=== PATIENT | female | born 1965 | race Caucasian/White ===

== ENCOUNTER → 2023-06-16 | Outpatient (CLI) | payer BC ==
--- NOTE | 2023-06-16 10:01 | CT ---
EXAMINATION TYPE: CT chest wo con DATE OF EXAM: 06/16/2023 COMPARISON: None HISTORY: Lung mass CT DLP: 279.[address] of the chest was performed with lung and mediastinal window settings submitted. The la ck of contrast limits evaluation of the vascular, mediastinal and parenchymal structures including th e upper abdomen. LUNGS: Spiculated right upper lobe mass felt to reflect malignancy until proven otherwise measuring 4 .5 x 4 0.3 to 3.6 cm. Focal internal calcifications seen. Thickening and narrowing of the right upper lobe bronchus without obstruction at this time. Reticulations extent to the mediastinum. No addition al nodules identified. MEDIASTINUM/JOSIE: Thoracic aorta is of normal caliber with limited evaluation given lack of contrast . The heart is not enlarged. No evidence for mediastinal mass. Probable right hilar adenopathy brock uring up to 1.3 cm although the lack of contrast does limit evaluation. No definite mediastinal adeno louann greater than 1 cm at this time. UPPER ABDOMEN: No significant abnormality is seen. OTHER: No significant other abnormality. IMPRESSION: 1. Spiculated right upper lobe mass felt to reflect malignancy until proven otherwise. Correlation w ith PET/CT and tissue diagnosis recommended. Probable right hilar adenopathy although the lack of con trast is limiting.
== END | disposition home or self-care (01) ==
LOC: RADCTMAIN 08:20
PROVIDERS: ATTEND Internal Medicine
DX: R91.8 Other nonspecific abnormal finding of lung field (principal)
CPT/HCPCS: 71250

== ENCOUNTER → 2023-06-25 | Outpatient (CLI) | payer BC ==
--- NOTE | 2023-06-27 22:01 | PE ---
EXAMINATION TYPE: PET CT fusion skull to thigh DATE OF EXAM: 06/25/2023 COMPARISON: CT chest 06/16/2023 Prior PET/CT: None HISTORY: Solitary pulmonary nodule TECHNIQUE: Following the intravenous administration of 10.2 mCi of F-18 FDG, whole body images are p erformed from the skull base to the midthigh. Images are reviewed on the computer in the coronal, ax ial, and sagittal planes. Reconstructed rotating images are created on independent workstation and r eviewed on the computer. A localization and attenuation correction CT is performed in conjunction w ith the PET scan. DLP: 45.43 mGycm SCAN: Initial Blood glucose: 83 mg/dL Average Mediastinum SUV: 1.43 Average Liver SUV: 1.85 FINDINGS: NECK: No abnormal uptake THORAX: There is focal intense uptake within the right lung mass. This has an SUV value of 9.88 cuauhtemoc tible with neoplastic process. Example image 72. This extends towards the right hilum. Increased upta ke remains surrounding bronchi within this region, example 79. SUV 2.13. No suspicious uptake within mediastinal or hilar adenopathy is otherwise evident. ABDOMEN: No abnormal uptake PELVIS: No abnormal uptake OSSEOUS STRUCTURES: No abnormal uptake LOCALIZATION CT: Lung mass measuring 5.6 x 3.8 m right upper lobe. Some mild soft tissue extension to the right hilum appears to be present with soft tissue surrounding the bronchus. COMPARISON: Previous measurement 4.5 x 4.3 x 3.6 cm. IMPRESSION: 1. Hyperactivity within the right upper lobe mass with extension towards the right hilum compatible w [facility] neoplastic process. 2. No mediastinal or distant metastasis identified.
== END | disposition home or self-care (01) ==
LOC: RADPETMAIN 11:47
PROVIDERS: ATTEND Internal Medicine
DX: R91.8 Other nonspecific abnormal finding of lung field (principal)
CPT/HCPCS: 78815; A9552

== ENCOUNTER 2023-07-08 08:55 | Day surgery (SDC) | payer BC ==
[~2023-07-08 08:55] MED LIST: LACTATED RINGERS 1,000 ML IV SCH
--- NOTE | 2023-07-08 09:32 | CT ---
EXAMINATION TYPE: CT chest wo con CT DLP: 237 mGycm, Automated exposure control for dose reduction was used. DATE OF EXAM: 07/08/2023 9:22 AM COMPARISON: Pet/CT 06/25/2023. CLINICAL INDICATION:Female, 57 years old with history of R91.1 Solitary pulmonary nodule; PHH, solita ry pulmonary nodule, pre bronchial navigation TECHNIQUE: Multiple axial images were obtained through the chest. Sagittal and coronal reformats were created for review. Contrast used: mL of (None if empty) Oral contrast used: (None if empty) FINDINGS: LUNGS/ PLEURA: There is a right upper lung mass measuring 4.5 x 4.3 x 4.4 cm. This mass extends towar ds the right pulmonary hilum. No additional suspicious pulmonary nodules identified right upper lung calcified granuloma. Mild centrilobular emphysema changes. No focal consolidation, pneumothorax or pl eural effusion. AIRWAY: Patent and unremarkable. HEART: Size within normal limits. MEDIASTINUM: No gross evidence of adenopathy. VASCULATURE: No aortic aneurysm. MUSCULOSKELETAL: No acute osseous abnormalities SOFT TISSUES/LYMPH NODES: Unremarkable. LOWER NECK: No significant findings. UPPER ABDOMEN: The gallbladder surgically absent. IMPRESSION: Right upper lung mass concerning for malignancy which extends towards the right pulmonary hilum. No enlarged FDG avid lymph nodes within the mediastinum visualized.
[2023-07-08] MEDS ORDERED: LIDOCAINE 1% (10MG/ML) FOR IV START INTRADERMA ONE (09:40)
[2023-07-08 09:57] LABS: Glucose,Whole Blood 100 mg/dL (70-110)
[2023-07-08] MEDS ORDERED: PROPOFOL 10 MG/ML 20 ML VIAL IV ONE (09:58)
[2023-07-08] MEDS ORDERED: DEXAMETHASONE SOD PHOSPHATE 4 MG/ML 1 ML VIAL ONE (09:58)
[2023-07-08] MEDS ORDERED: GLYCOPYRROLATE 0.2 MG/ML 2 ML VIAL ONE (09:58)
[2023-07-08] MEDS ORDERED: ROCURONIUM 10 MG/ML (5 ML VIAL) IV ONE (09:58)
[2023-07-08] MEDS ORDERED: fentaNYL (PF) 50 MCG/ML 2 ML AMP ONE (09:58)
[2023-07-08] MEDS ORDERED: MIDAZOLAM 2 MG/2 ML VIAL ONE (09:58)
[2023-07-08] MEDS ORDERED: ONDANSETRON 4 MG/2 ML VIAL ONE (09:58)
[2023-07-08] MEDS ORDERED: NEOSTIGMINE 1 MG/ML 10 ML VIAL ONE (09:58)
[2023-07-08] MEDS ORDERED: LIDOCAINE 2% INJ 20 MG/ML (2 ML VIAL) ONE (09:58)
[2023-07-08] MEDS ORDERED: SUCCINYLCHOLINE CHLORIDE 200 MG/10 ML VIAL IV ONE (09:58)
--- NOTE | 2023-07-08 11:11 | P.PCN ---
Date of Procedure: 07/08/23 Description of Procedure: Date of Procedure: 07/08/23 Operative Findings: Preoperative Diagnosis: Right upper lobe mass, 4.5 x 4 0.3 to 3.6 cm Postoperative Diagnosis: Right upper lobe mass Obstruction of the posterior segment of the right upper lobe with tumor Procedure(s) Performed: Flexible bronchoscopy Robotic-assisted bronchoscopy and addition to radial ultrasound evaluation of the pulmonary mass Robotic-assisted transbronchial needle aspirate, transbronchial biopsies, transbronchial brushing of the right upper lobe mass in addition to a bronchioloalveolar lavage EBUS Anesthesia: ODETTE Surgeon: Liv Flaherty Estimated Blood Loss (ml): 0 Pathology: other Condition: stable Disposition: same day Operative Findings: A physical exam was performed. Informed consent was obtained from the patient after explaining all the risks (pneumothorax, life threatening bleeding, infection and adverse effects due to medications), benefits and alternatives to the procedure which the patient appeared to understand and so stated. The patient was connected to the monitoring devices. General anesthesia was induced and the patient was intubated by anesthesia. A final timeout was performed and the procedure confirmed by the attending staff bronchoscopist. The bronchoscope was inserted and the airway examined. The flexible bronchoscope was removed and the robotic bronchoscope was inserted. Registration was completed. I next guided the robotic bronchoscope using the navigation system into the right upper lobe posterior segment. Once in proper position, the bronchoscope was frozen. A posterior segment of the right upper lobe was completely obstructed with necrotic tumor. The tumor was fungating into the segments and it was closing orifice of the segment. The radial EBUS probe was placed through the bronchoscope and confirmed abnormal u/s images vs normal lung. A needle was placed through the working channel and under fluoroscopic guidance, we sampled the area thought to have the mass twice. U/S evaluation was then used to reconfirm location. Forceps were next introduced through working channel and extended the appropriate distance and 2 transbronchial biopsies were performed using fluoroscopic guidance. The u/s probe was then reinserted to confirm location. When confirmed this process was repeated for a total of 6 transbronchial biopsies. I subsequently under direct visualization, performed endobronchial biopsies of the residual tumor in the posterior segment of the right upper lobe. After reassessment with EBUS, a brush was placed through the extendable working channel for 1 pass with fluoroscopic guidance. U/S evaluation was then used to confirm location. 60ml of saline was then instilled into the area of the lesion. The robotic b ronchoscope was removed and the airway inspected with a flexible bronchoscope and 10 ml of effluent from the BAL was collected. Fluoroscopic check for pneumothorax was negative upon completion of the procedure. There was <5cc ml blood loss with the procedure. Following that, the endobronchial ultrasound was inserted for mediastinal lymph node evaluation. A complete examination is grossly patient's was done. The patient was found not to have any significant use on lymphadenopathy. One of the mediastinal lymph nodes were less than 5 mm in size. Flexible bronchoscope was inserted and regular suctioning was done. At the completion of the procedure, no residual secretions or bloody material within the airway. The bronchoscope was removed. The patient was extubated. FINDINGS: 1.The airways /direct visualization of the airways revealed a tumor occluding the posterior segment of the right upper lobe 2 Successful navigation, ultrasonographic identification, and biopsies of right upper lobe pulmonary mass 3 direct visualization of the airways revealed a tumor occluding the posterior segment of the right upper lobe RECOMMENDATIONS: Await pathology and cytology results The referring physician will be alerted to the results when available. The patient was advised to follow up with the referring physician with the biopsy results Patient will be called with results.
--- NOTE | 2023-07-08 11:26 | FL ---
Intraoperative/procedural fluoroscopic services were provided for bronchoscopy. Total fluoroscopy mateusz e is 1.25 minutes with a total of 3 submitted images to PACS. Total DAP 4.2370 Gycm2. Please see the operative note for further details.
[2023-07-08 11:30] VITALS: TEMP 97.2
[2023-07-08 11:55] VITALS: RESP 18
[2023-07-08 12:35] VITALS: BP 133/77; PULSE 72
== END 2023-07-08 12:36 | disposition home or self-care (01) ==
LOC: ORWHC2ENDO 08:55
PROVIDERS: ATTEND Internal Medicine Critical Care Medicine
DX: R91.1 Solitary pulmonary nodule (principal); J44.9 Chronic obstructive pulmonary disease, unspecified; K21.9 Gastro-esophageal reflux disease without esophagitis; J30.9 Allergic rhinitis, unspecified; E55.9 Vitamin D deficiency, unspecified; H02.60 Xanthelasma of unspecified eye, unspecified eyelid; Z79.899 Other long term (current) drug therapy; Z90.49 Acquired absence of other specified parts of digestive tract; Z98.890 Other specified postprocedural states
CPT/HCPCS: 87798 ×3; 87496; 87498; 87529; 88305; 88342; 87502; 87634; 88341; 87070; 87205; 87116; 87102; 87206; 71250; 31628; 31629; 31623; 31624; 31652; J2250; J0330; J1100; J2710; J2405; J3010; J2704; J2001; S2900; 31625

== ENCOUNTER → 2023-07-28 | Outpatient (CLI) | payer BC ==
--- NOTE | 2023-07-28 21:52 | MR ---
EXAMINATION TYPE: MR brain wo con DATE OF EXAM: 07/28/2023 COMPARISON: None HISTORY: Lung cancer , evaluate for metastatic disease. CONTRAST: Performed utilizing 0 mL intravenous Gadavist gadolinium contrast. Patient reports previo us allergic reaction to contrast TECHNIQUE: Multiplanar, multiecho imaging on a 3.0 Kylie magnet is performed through the brain. Stud y is performed within 24 hours of arrival to the hospital. The craniovertebral junction is normal. The pituitary is normal. Diffusion-weighted imaging is performed. No abnormal hyperintensity is present to suggest an acute i ntracranial infarct or acute ischemic change. There are scattered small subcortical white matter changes within the centrum semiovale bilaterally. This is greater in the posterior regions. No suspicious masses are identified. No vasogenic edema is evident. No suspicious calvarial changes. Ventricles and sulci are appropriate for the patient age. IMPRESSION: 1. No suspicious changes on this noncontrast MRI brain to suggest underlying metastasis. 2. Chronic appearing periventricular and deep white matter punctate white matter changes.
== END | disposition home or self-care (01) ==
LOC: RADMRIMAIN 11:35
PROVIDERS: ATTEND Thoracic Surgery (Cardiothoracic Vascular Surgery)
DX: C34.11 Malignant neoplasm of upper lobe, right bronchus or lung (principal); R90.82 White matter disease, unspecified
CPT/HCPCS: 70551

== ENCOUNTER → 2023-08-13 | Outpatient (CLI) | payer BC ==
[2023-08-13 22:25] LABS: Appearance,Urine Clear (Clear); Bilirubin,Urine Negative (Negative); Blood,Urine Negative (Negative); Color,Urine Yellow (Yellow); Ketones,Urine Negative (Negative); Nitrite,Urine Negative (Negative); PH, Urine 6.5; Specific Gravity,Urine 1.009 (1.001-1.030); Urobilinogen,Urine 0.2 E.U./DL
== END | disposition home or self-care (01) ==
LOC: LABWHC1 11:38
PROVIDERS: ATTEND Thoracic Surgery (Cardiothoracic Vascular Surgery)
DX: Z01.812 Encounter for preprocedural laboratory examination (principal); C34.11 Malignant neoplasm of upper lobe, right bronchus or lung
CPT/HCPCS: 81003; 87086

== ENCOUNTER 2023-08-19 09:39 | Inpatient (IN) | payer BC ==
[~2023-08-19 09:39] MED LIST changes: +DEXAMETHASONE SOD PHOSPHATE 4 MG/ML 1 ML VIAL IV ONE; +HYDROmorphone 0.5 MG/0.5 ML SYRINGE IVP PRN; -LACTATED RINGERS 1,000 ML IV SCH; +LIDOCAINE 1% (10MG/ML) FOR IV START INTRADERMA PRN; +MIDAZOLAM 2 MG/2 ML VIAL IV PRN; +ONDANSETRON 4 MG/2 ML VIAL IVP ONE
[2023-08-19 10:35] LABS: Glucose,Whole Blood 105 mg/dL (70-110)
[2023-08-19] MEDS: LACTATED RINGERS 1,000 ML IV SCH ×2 (10:35→10:40)
[2023-08-19] MEDS ORDERED: LIDOCAINE 1% (10MG/ML) FOR IV START INTRADERMA ONE (10:40)
[2023-08-19] MEDS ORDERED: MIDAZOLAM 2 MG/2 ML VIAL IVP ONE (10:52)
[2023-08-19] MEDS ORDERED: NEOSTIGMINE 1 MG/ML 10 ML VIAL ONE (11:31)
[2023-08-19] MEDS ORDERED: GLYCOPYRROLATE 0.2 MG/ML 2 ML VIAL ONE (11:31)
[2023-08-19] MEDS ORDERED: PHENYLEPHRINE-0.9% NACL SYG 1,000 MCG/10 ML SYRINGE ONE (11:31)
[2023-08-19] MEDS ORDERED: SUCCINYLCHOLINE CHLORIDE 200 MG/10 ML VIAL IV ONE (11:31)
[2023-08-19] MEDS ORDERED: MIDAZOLAM 2 MG/2 ML VIAL ONE (11:31)
[2023-08-19] MEDS ORDERED: HYDROmorphone (PF) 1 MG/ML ONE (11:31)
[2023-08-19] MEDS ORDERED: PROPOFOL 10 MG/ML 20 ML VIAL IV ONE (11:31)
[2023-08-19] MEDS ORDERED: LIDOCAINE 1% INJ 10MG/ML (20 ML MDV) ONE (11:31)
[2023-08-19] MEDS ORDERED: ROCURONIUM 10 MG/ML (5 ML VIAL) IV ONE (11:31)
[2023-08-19] MEDS ORDERED: ROPIVACAINE 5 MG/ML 30 ML VIAL ONE (11:31)
[2023-08-19] MEDS ORDERED: DEXAMETHASONE SOD PHOSPHATE 4 MG/ML 1 ML VIAL ONE (11:31)
[2023-08-19] MEDS ORDERED: KETAMINE HCL IN 0.9 % NACL 50 MG/5 ML SYRINGE ONE (11:31)
[2023-08-19] MEDS ORDERED: fentaNYL (PF) 50 MCG/ML 2 ML AMP ONE (11:31)
[2023-08-19] MEDS ORDERED: BUPIVACAINE (PF) 0.5% 30 ML VIAL SQ ONE (12:30)
--- NOTE | 2023-08-19 13:10 | P.ANPRN ---
Procedure Note - Anesthesia - Nerve Block Performed Right Erector Spinae Single Time Out Performed: Yes (Paravertebral T4 and T7) Date of Procedure: 08/19/23 Procedure Start Time: 10:52 Procedure Stop Time: 11:00 Location of Patient: PreOp Indication: Acute Post-Operative Pain, Requested by Surgeon Sedation Type: Sedate with meaningful contact maintained Preparation: Sterile Prep, Sterile Dressing Position: Prone Catheter: None Needle Types: Facet Needle Gauge: 21 Ultrasound used to visualize needle placement: Yes Ultrasound used to observe medication spread: Yes Injectate: 0.5% Ropivacaine (see comment for volume) (20 ml + decadron 3 mg) Blood Aspirated: No Pain Paresthesia on Injection Noted: No Resistance on Injection: Normal Image Stored and Saved: Yes Events: Uneventful and Well Tolerated Right Other (see comment) Single Time Out Performed: Yes Date of Procedure: 08/19/23 Procedure Start Time: 11:01 Procedure Stop Time: 11:06 Location of Patient: PreOp Indication: Acute Post-Operative Pain, Requested by Surgeon Sedation Type: Sedate with meaningful contact maintained Preparation: Sterile Prep, Sterile Dressing Position: Prone Catheter: None Needle Types: Facet Needle Gauge: 21 Ultrasound used to visualize needle placement: Yes Ultrasound used to observe medication spread: Yes Injectate: 0.5% Ropivacaine (see comment for volume) (5 ml per site + decadron 0.5 mg (total 10 ml + 1 mg decadron)) - Invasive Line Left Arterial Line Time Out Performed: Yes Date of Procedure: 08/19/23 Time of Procedure: 11:20 Location of Patient: PreOp Preparation: Sterile Prep, Sterile Dressing Arterial Line Location: Radial Ultrasound Used: No Needle Guage: 20 Narrative: Left radial arterial line placed by RAVINDRA
[2023-08-19] MEDS ORDERED: LACTATED RINGERS 1,000 ML IV ONE (15:49)
--- NOTE | 2023-08-19 16:28 | P.OP ---
Date of Procedure: 08/19/23 Preoperative Diagnosis: Lung Cancer Postoperative Diagnosis: Same Procedure(s) Performed: 1. Bronchoscopy 2. Right robotic assisted thorascopic surgery with right upper lobectomy 3. Mediastinal lymph node dissection 4. Intercostal nerve block - 3 levels. Anesthesia: ODETTE Surgeon: Osbaldo Espino Architectural Superintendent #1: Juan Cohen Estimated Blood Loss (ml): 100 Pathology: other (RUL, LN Stations 7-11R and 4R) Condition: stable Disposition: PACU Indications for Procedure: This patient is a 57 year-old female who developed a chronic cough and was sent to Dr. Davey for consultation who ordered a cxr, which revealed a right sided lung nodule. Further work-up revealed a 5.4cm right upper lobe poorly differentiated NSCLC with neuroendocrine features without evidence of metastatic disease. Given good lung function, lobectomy was recommended. Operative Findings: Large tumor with significant upper lobe adhesions to chest wall. No evidence of chest wall invasion or metastatic disease. Description of Procedure: The patient underwent left radial arterial line placement and errecter spinae block by the anesthesia team in pre-op. She was brought back to the operating room and placed on the table in the supine position. He was intubated with a 37F left sided NEDRA which was confirmed with bronchoscopy. A diagnostic bronchoscopy was also performed which revealed no lesions or abnormalities in the entire tracheo-bronchial tree especially the right upper lobe. There was minimal to no secretions. The patient was then positioned in the left lateral decubitus position and his right chest was prepped and draped in the usual sterile fashion. The double lumen tube position was once again checked using bronchoscopy. A time-out was performed and antibiotics were given. The right lung was isolated. We made a 1cm incision in the 8th intercostal space mid axillary line. The 8mm trocar was inserted into the chest bluntly. The robotic camera was inserted and there was no injury to the lung and there was good lung isolation. We placed then placed 12mm trocars 10cm anteriorly and 10cm posteriorly in the 8th intercostal space. A 4th 8mm port was placed posteriorly in the 7th ICS posteriorly. We placed a 15mm purchasing administrative assistant port in between ports 1 and 2 10th ICS above the diaphragm. Intercostal nerve block was performed at 3 levels. The Meltyi Xi robot was then docked. Attention was then turned towards the inferior pulmonary ligament which was taken down using the bipolar cautery. This dissection was carried upward with the bipolar cautery posteriorly along the mediastinal pleura. Level 9,8 and 7 lymph nodes were harvested here. The right mainstem bronchus was identified and followed up into the lung. The pam in between the RUL bronchus and bronchus intermedius was dissected using the bipo lar cautery and bluntly. At this point, R 10, R11 and R4 node was taken above the azygous vein. There was significant adhesions of the upper lobe to the chest wall. These were taken down using bipolar cautery. There was no evidence of tumor invasion into chest wall. I then proceeded to divide the anterior mediastinal pleura and carried this dissection upward. At this point the superior pulmonary vein was identified and encircled with a vessel loop taking care to preserve the vein to the middle lobe. A robotic white load was fired across the vein. Next, the truncus arteriosus was circumferentially dissected and encircled with a vessel loop. Once again, the robotic white load was fired across this vessel. Next the posterior ascending artery was identified and encircled with a vessel loop. A robotic white load stapler was fired across it. . Attention was then turned posterior towards the upper lobe bronchus. This was bluntly encircled with a vessel loop and a robotic green load was fired across the upper lobe bronchus. Lastly the anterior and posterior fissures were divided using multiple firings of the robotic green and black load stapler. Prior to completing the posterior fissure there was an ascessory artery noted going to the upper lobe, this was encircled with a vessel loop and stapled using a white load. The lung was placed in a retrieval bag, and the right chest was irrigated with water and a leak test on the bronchus was performed which was negative. The robot was undocked, the specimen was removed from the chest cavity and a 28F chest tube was placed via the most anterior incision and two lung ventilation was resumed. The patient was extubated and transferred to recovery with no air leak.
--- NOTE | 2023-08-19 17:18 | XR ---
EXAMINATION TYPE: XR chest 1V portable DATE OF EXAM: 08/19/2023 Comparison: 06/11/2023 Clinical History: 57-year-old female, RIGHT UPPER LOBE LOBECTOMY; POSTOP Findings: Postsurgical change right upper lung with a staple line in patchy opacity. There is a trace right api jules pneumothorax measuring 7.6 mm wide right apical chest tube present. Left lung and pleural space a re clear. Impression: Postresection changes right upper lung with right-sided chest tube in place and small right apical pn eumothorax measuring 8 mm. Patchy opacity throughout the right upper lung could represent contusion/p ostsurgical change.
[2023-08-19 17:56] LABS: Glucose,Whole Blood 145 mg/dL (70-110)
[2023-08-19] MEDS ORDERED: ONDANSETRON 4 MG/2 ML VIAL IVP PRN (17:56)
[2023-08-19] MEDS ORDERED: METOCLOPRAMIDE 5 MG/ML 2 ML VIAL IVP PRN (17:56)
[2023-08-19] MEDS ORDERED: bisacodyL 10 MG SUPP RECTAL PRN (17:56)
[2023-08-19] MEDS ORDERED: IPRATROPIUM-ALBUTEROL 3 ML NEB IH PRN (17:56)
[2023-08-19] MEDS ORDERED: DEXTROSE 5%-0.45% NACL 1,000 ML IV SCH (17:56)
[2023-08-19] MEDS: KETOROLAC 15 MG/ML 1 ML VIAL IVP SCH ×2 (18:28→23:17)
[2023-08-19] MEDS: ACETAMINOPHEN IV (For NPO) 1,000 MG in EMPTY BAG 1 BAG IVPB SCH ×2 (18:28→23:18)
[2023-08-19 19:09] LABS: African American GFR (CKD) >90 (>60 ml/min/1.73 sqM); Anion Gap 9 mmol/L; Blood Urea Nitrogen 13 mg/dL (7-17); Calcium 8.7 mg/dL (8.4-10.2); Carbon Dioxide 25 mmol/L (22-30); Chloride 102 mmol/L (98-107); Glucose 156 mg/dL (74-99); Non-African American GFR(CKD) >90 (>60 ml/min/1.73 sqM); Potassium 4.4 mmol/L (3.5-5.1); Sodium 136 mmol/L (137-145)
[2023-08-19] MEDS: traMADol 50 MG TAB PO PRN (19:40)
[2023-08-19] MEDS: FORMOTEROL FUMARATE 20 MCG/2 ML NEBU INHALATION SCH (20:18)
[2023-08-19] MEDS: IPRATROPIUM-ALBUTEROL 3 ML NEB IH SCH (20:18)
[2023-08-19] MEDS: PANTOPRAZOLE 40 MG TABLET PO SCH (20:47)
[2023-08-19 21:44] LABS: HCT 38.4 % (34.0-46.0); MCH 30.3 pg (25.0-35.0); MCHC 33.8 g/dL (31.0-37.0); MCV 89.7 fL (80.0-100.0); Mean Platelet Volume 8.3; Platelet Count 256 k/uL (150-450); RBC 4.28 m/uL (3.80-5.40); RDW 12.9 % (11.5-15.5); WBC 13.4 k/uL (3.8-10.6)
[2023-08-19] MEDS: CLINDAMYCIN 900 MG in DEXTROSE 5% IN WATER 50 ML IVPB SCH ×2 (23:17)
[2023-08-19] MEDS: HEPARIN SODIUM,PORCINE 5,000 UNIT/ML 1 ML VIAL SQ SCH (23:17)
[2023-08-20] MEDS: traMADol 50 MG TAB PO PRN (04:04)
[2023-08-20 05:23] LABS: Basophils % (A) 0 %; Eosinophils % (A) 0 %; HGB 11.7 gm/dL (11.4-16.0); Lymphocytes # (A) 2.5 k/uL (1.0-4.8); Lymphocytes % (A) 24 %; MCH 29.9 pg (25.0-35.0); MCHC 33.5 g/dL (31.0-37.0); MCV 89.2 fL (80.0-100.0); Mean Platelet Volume 7.9; Monocytes # (A) 0.6 k/uL (0-1.0); Monocytes % (A) 6 %; Neutrophils # (A) 7.1 k/uL (1.3-7.7); Neutrophils % (A) 69 %; Platelet Count 268 k/uL (150-450); RBC 3.92 m/uL (3.80-5.40); RDW 12.6 % (11.5-15.5); WBC 10.3 k/uL (3.8-10.6)
[2023-08-20 05:35] LABS: African American GFR (CKD) >90 (>60 ml/min/1.73 sqM); Anion Gap 8 mmol/L; Blood Urea Nitrogen 13 mg/dL (7-17); Carbon Dioxide 26 mmol/L (22-30); Chloride 95 mmol/L (98-107); Glucose 114 mg/dL (74-99); Non-African American GFR(CKD) >90 (>60 ml/min/1.73 sqM); Potassium 4.5 mmol/L (3.5-5.1); Sodium 129 mmol/L (137-145)
[2023-08-20] MEDS: PANTOPRAZOLE 40 MG TABLET PO SCH ×2 (06:48→16:58)
[2023-08-20] MEDS: KETOROLAC 15 MG/ML 1 ML VIAL IVP SCH ×4 (06:48→23:56)
[2023-08-20] MEDS: ACETAMINOPHEN IV (For NPO) 1,000 MG in EMPTY BAG 1 BAG IVPB SCH ×2 (06:48→12:18)
--- NOTE | 2023-08-20 08:01 | XR ---
EXAMINATION TYPE: XR chest 1V DATE OF EXAM: 08/20/2023 HISTORY: Postoperative robotic-assisted right upper lobecto COMPARISON: 08/19/2023 TECHNIQUE: Single view of the chest is submitted. FINDINGS: Postoperative changes of right upper lobectomy with chest tube in place. Persistent right apical pneu mothorax with apical pleural distance of 1.6 cm versus 8 mm previously. Increased opacity right supra hilar region as well as surgical sutures. The left lung is clear. The heart is stable. Hilar and mediastinal structures are within normal limits. Degenerative changes are seen of the dorsal spine. IMPRESSION: 1. Postoperative changes of right upper lobectomy with chest tube in place. Persistent right apical pneumothorax with apical pleural distance of 1.6 cm versus 8 mm previously.
[2023-08-20] MEDS: FORMOTEROL FUMARATE 20 MCG/2 ML NEBU INHALATION SCH ×2 (08:15→21:23)
[2023-08-20] MEDS: IPRATROPIUM-ALBUTEROL 3 ML NEB IH SCH ×4 (08:15→21:23)
[2023-08-20] MEDS: HEPARIN SODIUM,PORCINE 5,000 UNIT/ML 1 ML VIAL SQ SCH ×3 (08:56→23:56)
[2023-08-20] MEDS: traMADol 50 MG TAB PO SCH ×4 (08:56→22:52)
[2023-08-20] MEDS: CLINDAMYCIN 900 MG in DEXTROSE 5% IN WATER 50 ML IVPB SCH ×2 (08:57)
[2023-08-20] MEDS: ATORVASTATIN 40 MG TAB PO SCH (08:57)
[2023-08-20] MEDS: SODIUM CHLORIDE 0.9% 1,000 ML IV SCH (09:54)
[2023-08-20] MEDS ORDERED: BENZOCAINE/MENTHOL LOZENG 1 EACH LOZENGE MUCOUS MEM PRN (10:02)
--- NOTE | 2023-08-20 10:19 | P.PN ---
Subjective Progress Note Date: 08/20/23 Principal diagnosis: Lung cancer. Past medical history significant for COPD with preoperative FEV1 87% of predicted value and a DLCO 55% of predicted value, asthma, diverticulitis , hyperlipidemia, GERD, osteoarthritis, and chronic ongoing tobacco dependence, recently quit smoking. POD #1 bronchoscopy, right robotic assisted thoracoscopic surgery with right upper lobectomy, mediastinal lymph node dissection, intercostal nerve block 3 levels. The patient was seen and examined in the intensive care unit today 08/20/2023. She is currently sitting up to bedside chair, is awake, alert, oriented 3 and is in no acute apparent distress. Denies any complaints of shortness of breath or nausea at this time, although is complaining of some pain to her right chest and to her right chest tube insertion site currently rating her pain 5 out of 10 on the pain scale. The patient also reports that she does have some pain with taking a deep breath to her right chest. Oxygen saturations are 97% on 4 L nasal cannula and she is achieving 500 mL on her incentive spirometry with much encouragement. Bedside telemetry showing normal sinus rhythm heart rate 80 BPM. She remained hemodynamically stable and is currently on no inotropic pressor support. Right pleural chest tube remains in place to waterseal. Intermittent air leak present with coughing and taking a deep breath. Chest tube is draining thin serosanguineous drainage with 120 mL output in the last 8 hours and 300 mL output in the last 24 hours. Chest x-ray and laboratory results were reviewed. Objective - Vital Signs Vital signs: Vital Signs Temp 98.4 F 08/20/23 08:00 Pulse 96 08/20/23 10:00 Resp 22 08/20/23 10:00 BP 111/72 08/19/23 21:00 Pulse Ox 97 08/20/23 10:00 FiO2 Intake & Output 08/19/23 08/20/23 08/20/23 18:59 06:59 18:59 Intake Total 2580 730 90 Output Total 472 550 120 Balance 2108 180 -30 Weight 72.6 kg 82.3 kg Intake: IV 2430 730 90 ACETAMINOPHEN IV (For NPO 200 ) 1,000 mg In Empty Bag 1 bag @ 400 mls/hr IVPB Q6HR [facility] Rx#:[id number] Clindamycin 900 mg In 50 50 Dextrose 5% in Water 50 ml @ 50 mls/hr IVPB Q8HR [facility] Rx#:[id number] Dextrose 5%-0.45% NaCl 1, 80 480 40 000 ml @ 40 mls/hr IV . Q24H [facility] Rx#:[id number] Oral 150 Output: Chest Tube Drainage 100 160 Chest Tube Right 100 160 Urine 272 390 120 Estimated Blood Loss 100 Other: Voiding Method Indwelling Catheter Indwelling Catheter ABP, PAP, CO, CI - Last Documented Arterial Blood Pressure 127/57 - Exam CONSTITUTIONAL: Appears comfortable, cooperative, no acute distress RESPIRATORY: Lungs sounds essentially clear throughout, diminished to her bilateral bases. Respirations are symmetrical, nonlabored. Currently on 4 L nasal cannula with oxygen saturation 97%. Able to achieve 500 mL on incentive spirometry. Weak loose cough. CARDIOVASCULAR: S1, S2 present. Regular rate and rhythm, sinus rhythm on telemetry. Palpable peripheral pulses bilaterally. No edema present. No calf pain or tenderness noted. SCDs present. GASTROINTESTINAL: Abdomen soft, nontender, nondistended. Active bowel sounds present 4 quadrants. Tolerating diet. GENITOURINARY: Jimenez catheter remains in place for accurate I's and O's.. Urine output 225 mL in the last 8 hours. INTEGUMENTARY: Skin is warm and dry with evidence of good perfusion. Right chest thoracic incisions well approximated and covered with dry intact dressing. NEUROLOGIC: Cranial nerves II through XII intact. No focal deficits. MUSKULOSKELETAL: Able to move all extremities, strength equal bilaterally, gait normal PSYCHIATRIC: Alert and oriented to person place and time, appropriate affect, intact judgment and insight. INVASIVE LINES AND TUBES: Right pleural chest tube present and connected to wall suction, intermittent air leak is present with coughing and taking deep breaths. Right pleural chest tube with 120 mL serosanguineous drainage overnight, 300 mL output since surgery. - Allied health notes Allied health notes reviewed: nursing - Labs CBC & Chem 7: 08/20/23 05:07 08/20/23 05:07 Labs: Abnormal Lab Results - Last 24 Hours (Table) 08/10/23 08/19/23 08/19/23 Range/Units 09:29 17:55 18:14 WBC (3.8-10.6) k/uL Sodium 136 L (137-145) mmol/L Chloride (98-107) mmol/L Glucose 156 H (74-99) mg/dL POC Glucose (mg/dL) 145 H (70-110) mg/dL Calcium (8.4-10.2) mg/dL Crossmatch See Detail 08/19/23 08/20/23 Range/Units 21:34 05:07 WBC 13.4 H (3.8-10.6) k/uL Sodium 129 L (137-145) mmol/L Chloride 95 L (98-107) mmol/L Glucose 114 H (74-99) mg/dL POC Glucose (mg/dL) (70-110) mg/dL Calcium 8.0 L (8.4-10.2) mg/dL Crossmatch - Imaging and Cardiology Chest x-ray: report reviewed, image reviewed Assessment and Plan Assessment: Lung cancer, status post bronchoscopy, right robotic assisted thoracoscopic surgery with right upper lobectomy, mediastinal lymph node dissection and intercostal nerve block 3 levels COPD with a preoperative FEV1 87% of predicted value and a DLCO 55% of predicted value Asthma Diverticulitis Hyperlipidemia GERD Osteoarthritis Chronic tobacco dependence, recently quit smoking Plan: We will keep her right pleural chest tube in place to water seal, continue to monitor for air leak resolution. Home meds restarted. Wean O2 as tolerated. Encourage incentive spirometry is 10 times every hour while awake. Bronchodilators/steroids per pulmonology Will monitor daily chest x-rays and labs. IV fluids switched to 0.9% normal saline at 75 mL per hour per pulmonary/critical care medicine for sodium level of 129. Increase activity as tolerated. Out of bed for all meals. GI/DVT prophylaxis Pain control with current medication regimen. Ultram increased to 100 mg 4 times a day when necessary pain Pathology results remain pending, will continue to follow. More recommendations to follow based on patient's clinical course. Time with Patient: Greater than 30
[2023-08-20] MEDS: guaiFENesin 600 MG TABLET.ER PO SCH ×2 (10:23→22:53)
--- NOTE | 2023-08-20 12:35 | P.CNPUL ---
History of Present Illness Consult date: 08/20/23 Requesting physician: Osbaldo Espino Reason for consult: other (Status post lobectomy) Chief complaint: Recently diagnosed lung cancer History of present illness: This is a 57-year-old female, known history of tobacco dependence syndrome, patient saw me in the office for chronic cough. Chest x-ray in the office showed right upper lobe mass further workup including CT of the chest and PET scan showed 5.6 cm mass in the right upper lobe with hypermetabolic activity noted on the PET scan with SUV of 9.88, no evidence at the time of any further metastatic disease. 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 Patient at that time had mostly symptoms of chronic cough but no other constitutional symptoms. Patient was referred to Dr. Espino, and she underwent right robotic-assisted thoracoscopic surgery with right upper lobectomy and mediastinal lymph node dissection. Postoperatively patient was sent to the ICU she was extubated in the recovery room, and I was asked to see her on consultation this morning. Patient seems to be doing well, relatively asymptomatic, chest x-ray showed a small right-sided pneumothorax, chest tube remains in place, and she has some haziness in the right upper lung kaba. Chest tube is connected to suction and that being addressed by surgery on the case labs this morning showed a slightly low sodium of 129 her WCL is 10.3 hemoglobin 11.7, patient is on 2 L nasal cannula with O2 sat of 97% and she is hemodynamically stable Review of Systems Constitutional: Negative HEENT: Negative Pulmonary: As noted in HPI Cardiac: Negative GI: Negative Genitourinary: Negative muscular skeletal: Negative Psychiatric: Negative Endocrine: Negative Hematologic: Negative Skin: Past Medical History Past Medical History: COPD, GERD/Reflux, Hyperlipidemia, Osteoarthritis (OA) Additional Past Medical History / Comment(s): seasonal allergies. spot on lung - PET scan History of Any Multi-Drug Resistant Organisms: None Reported Past Surgical History: Section, Cholecystectomy, Hysterectomy Additional Past Surgical History / Comment(s): colonoscopy Past Anesthesia/Blood Transfusion Reactions: No Reported Reaction Additional Past Anesthesia/Blood Transfusion Reaction / Comment(s): no blood tranfusions Additional Past Alcohol Use History / Comment(s): 5-6 cigarettes a day. - Past Family History Father Family Medical History: Coronary Artery Disease (CAD), Hypertension Additional Family Medical History / Comment(s): pacemaker Mother Family Medical History: Diabetes Mellitus, Hypertension Medications and Allergies Home Medications Medication Instructions Recorded Confirmed Type Cetirizine HCl [Zyrtec] 10 mg PO Q2D 07/06/23 08/13/23 History Fluticasone/Umeclidin/Vilanter 1 puff INHALATION DAILY 07/06/23 08/13/23 History [Trelegy Ellipta 200-62.5-25] Montelukast [Singulair] 10 mg PO HS 07/06/23 08/13/23 History Omeprazole [PriLOSEC] 10 mg PO BID 07/06/23 08/13/23 History Pravastatin Sodium [Pravachol] 10 mg PO HS 07/06/23 08/13/23 History Albuterol Inhaler [Ventolin Hfa 2 puff INHALATION Q6H PRN 08/13/23 08/13/23 History Inhaler] Allergies Allergy/AdvReac Type Severity Reaction Status Date / Time amoxicillin Allergy Rash/Hives Verified 08/19/23 10:15 calcium [From Coral Calcium] Allergy Swelling Verified 08/19/23 10:13 calcium carbonate Allergy Swelling Verified 08/19/23 10:13 [From Coral Calcium] cephalexin [From Keflex] Allergy Rash/Hives Verified 08/19/23 10:13 cholecalciferol (vitamin D3) Allergy Swelling Verified 08/19/23 10:13 [From Coral Calcium] Iodinated Contrast Media Allergy Unknown Verified 08/19/23 10:13 magnesium Allergy Swelling Verified 08/19/23 10:13 [From Coral Calcium] magnesium amino acid chelate Allergy Swelling Verified 08/19/23 10:13 [From Coral Calcium] magnesium oxide Allergy Swelling Verified 08/19/23 10:13 [From Coral Calcium] Penicillins Allergy Rash/Hives Verified 08/19/23 10:13 shellfish derived Allergy Swelling Verified 08/19/23 10:13 sulfamethoxazole Allergy muscle Verified 08/13/23 09:16 [From Bactrim] weakness trimethoprim [From Bactrim] Allergy muscle Verified 08/13/23 09:16 weakness varenicline [From Chantix] Allergy rash and Verified 08/13/23 09:16 itching Physical Exam Vitals: Vital Signs Temp Pulse Pulse Resp BP BP BP 08/20/23 12:00 98.2 F 99 27 H 115/70 08/20/23 11:30 85 33 H 08/20/23 11:09 83 12 115/70 08/20/23 10:30 85 18 08/20/23 10:00 96 22 08/20/23 09:30 92 20 08/20/23 09:00 84 19 08/20/23 08:42 73 08/20/23 08:30 74 20 08/20/23 08:26 08/20/23 08:17 83 08/20/23 08:00 98.4 F 68 16 08/20/23 07:30 81 14 08/20/23 07:00 69 19 08/20/23 06:30 73 24 08/20/23 06:00 78 24 08/20/23 05:30 82 21 08/20/23 05:00 76 12 08/20/23 04:30 68 13 08/20/23 04:00 98.3 F 73 15 08/20/23 03:30 71 15 08/20/23 03:00 76 16 08/20/23 02:30 75 17 08/20/23 02:00 76 14 08/20/23 01:30 74 16 08/20/23 01:00 74 16 08/20/23 00:30 71 15 08/20/23 00:10 75 16 08/20/23 00:00 97.9 F 81 10 L 08/19/23 23:30 82 22 08/19/23 23:00 87 15 08/19/23 22:30 77 16 08/19/23 22:00 76 15 08/19/23 21:30 78 15 08/19/23 21:00 80 17 111/72 08/19/23 20:30 70 17 74/26 08/19/23 20:29 76 08/19/23 20:19 74 08/19/23 20:00 97.6 F 71 20 105/60 08/19/23 19:30 71 15 08/19/23 19:00 81 22 114/67 08/19/23 18:00 97.7 F 74 13 122/60 08/19/23 17:15 73 17 120/59 112/56 08/19/23 17:02 75 14 115/58 122/76 08/19/23 16:47 82 16 143/71 128/76 10/12/23 16:32 97 F L 79 16 123/55 128/76 Pulse Ox 08/20/23 12:00 98 08/20/23 11:30 98 08/20/23 11:09 96 08/20/23 10:30 98 08/20/23 10:00 97 08/20/23 09:30 97 08/20/23 09:00 96 08/20/23 08:42 08/20/23 08:30 98 08/20/23 08:26 94 L 08/20/23 08:17 08/20/23 08:00 94 L 08/20/23 07:30 93 L 08/20/23 07:00 97 08/20/23 06:30 96 08/20/23 06:00 94 L 08/20/23 05:30 97 08/20/23 05:00 98 08/20/23 04:30 98 08/20/23 04:00 97 08/20/23 03:30 98 08/20/23 03:00 97 08/20/23 02:30 97 08/20/23 02:00 97 08/20/23 01:30 98 08/20/23 01:00 97 08/20/23 00:30 97 08/20/23 00:10 98 08/20/23 00:00 97 08/19/23 23:30 96 08/19/23 23:00 98 08/19/23 22:30 97 08/19/23 22:00 98 08/19/23 21:30 97 08/19/23 21:00 95 08/19/23 20:30 99 08/19/23 20:29 08/19/23 20:19 08/19/23 20:00 98 08/19/23 19:30 97 08/19/23 19:00 97 08/19/23 18:00 97 08/19/23 17:15 98 08/19/23 17:02 99 08/19/23 16:47 98 08/19/23 16:32 92 L Intake and Output 08/19/23 08/20/23 08/20/23 22:59 06:59 14:59 Intake Total 650 610 315 Output Total 602 420 245 Balance 48 190 70 Intake: IV 500 610 315 ACETAMINOPHEN IV (For NPO 200 ) 1,000 mg In Empty Bag 1 bag @ 400 mls/hr IVPB Q6HR [facility] Rx#:[id number] Clindamycin 900 mg In 50 50 Dextrose 5% in Water 50 ml @ 50 mls/hr IVPB Q8HR [facility] Rx#:[id number] Dextrose 5%-0.45% NaCl 1, 200 360 40 000 ml @ 40 mls/hr IV . Q24H [facility] Rx#:[id number] Sodium Chloride 0.9% 1, 225 000 ml @ 75 mls/hr IV . [id number] [facility] Rx#:[id number] Oral 150 Output: Chest Tube Drainage 140 120 Chest Tube Right 140 120 Urine 362 300 245 Estimated Blood Loss 100 Other: Voiding Method Indwelling Catheter Indwelling Catheter Indwelling Catheter # Voids 0 Weight 82.3 kg ABP, PAP, CO, CI - Last 8 Hours Arterial Blood Pressure 127/57 Arterial Blood Pressure 128/60 Arterial Blood Pressure 118/51 Arterial Blood Pressure 121/54 Arterial Blood Pressure 111/52 Arterial Blood Pressure 116/57 Arterial Blood Pressure 123/58 Arterial Blood Pressure 121/56 Arterial Blood Pressure 123/49 Arterial Blood Pressure 114/50 Arterial Blood Pressure 130/57 Arterial Blood Pressure 111/50 Physical Exam: Revealed a 57-year-old female in no distress Head: Atraumatic, normocephalic. HEENT:[Neck is supple.] [No neck masses.] [No thyromegaly.] [No JVD.] Chest: [Clear throughout, no crackles, no rhonchi, no wheezes.] Right-sided chest tube is noted connected to wall suction, intermittent air leak is noted. Cardiac Exam: [Normal S1 and S2, no S3 gallop, no murmur.] Abdomen: [Soft, nontender, no megaly, no rebound, no guarding, normal bowel sounds.] Extremities: [No clubbing, no edema, no cyanosis.] Neurological Exam: [No focal neurologic deficit.] Alert oriented 3 Psychiatric: Normal mood affect and normal mental status examination. Skin: No rashes. Results - Laboratory Findings CBC and BMP: 08/20/23 05:07 08/20/23 05:07 Abnormal lab findings: Abnormal Labs 08/10/23 08/19/23 08/19/23 09:29 17:55 18:14 WBC Sodium 136 L Chloride Glucose 156 H POC Glucose (mg/dL) 145 H Calcium Crossmatch See Detail 08/19/23 08/20/23 21:34 05:07 WBC 13.4 H Sodium 129 L Chloride 95 L Glucose 114 H POC Glucose (mg/dL) Calcium 8.0 L Crossmatch - Diagnostic Findings Chest x-ray: image reviewed (As noted in HPI) Assessment and Plan Assessment: Impression: Right upper lobe non-small cell lung cancer with neuroendocrine features status post right robotic-assisted thoracoscopic surgery and the right upper lobectomy. With mediastinal node dissection postoperative day #1 Mild COPD FEV1 of 87% Dyslipidemia Chronic cough Degenerative joint disease Tobacco dependence syndrome Recommendation: Agree with present treatment plan Consider transferring the patient out of the ICU to a regular medical floor Continue bronchodilators Encourage incentive spirometry Ambulation GI and DVT prophylaxis Pain control We'll continue to follow Time with Patient: Greater than 30
[2023-08-21 04:54] LABS: HCT 32.4 % (34.0-46.0); HGB 10.8 gm/dL (11.4-16.0); MCH 29.7 pg (25.0-35.0); MCHC 33.5 g/dL (31.0-37.0); MCV 88.8 fL (80.0-100.0); Mean Platelet Volume 7.3; Platelet Count 239 k/uL (150-450); RBC 3.64 m/uL (3.80-5.40); RDW 12.8 % (11.5-15.5); WBC 11.1 k/uL (3.8-10.6)
[2023-08-21 05:07] LABS: African American GFR (CKD) >90 (>60 ml/min/1.73 sqM); Anion Gap 9 mmol/L; Blood Urea Nitrogen 7 mg/dL (7-17); Carbon Dioxide 24 mmol/L (22-30); Chloride 94 mmol/L (98-107); Glucose 104 mg/dL (74-99); Non-African American GFR(CKD) >90 (>60 ml/min/1.73 sqM); Potassium 4.4 mmol/L (3.5-5.1); Sodium 127 mmol/L (137-145)
[2023-08-21] MEDS: PANTOPRAZOLE 40 MG TABLET PO SCH ×2 (06:29→18:40)
[2023-08-21] MEDS: KETOROLAC 15 MG/ML 1 ML VIAL IVP SCH ×4 (06:29→23:38)
[2023-08-21] MEDS: SODIUM CHLORIDE 0.9% 1,000 ML IV SCH (06:31)
--- NOTE | 2023-08-21 08:04 | XR ---
EXAMINATION TYPE: XR chest 1V portable DATE OF EXAM: 08/21/2023 HISTORY: Shortness of breath. COMPARISON: 08/20/2023 TECHNIQUE: Single view of the chest is submitted. FINDINGS: Postoperative changes of right upper lobectomy are redemonstrated. Increasing right apical pneumothor ax with apical pleural distance of 2.9 cm versus 1.6 cm previously. Increased opacity right upper shanda g. Chest tube is in place. The left lung is clear. The heart is stable. Hilar and mediastinal structures are within normal limits. Degenerative changes are seen of the dorsal spine. IMPRESSION: 1. Postoperative changes of right upper lobectomy are redemonstrated. Increasing right apical pneumo thorax with apical pleural distance of 2.9 cm versus 1.6 cm previously. Increased opacity right upper lung. Chest tube is in place.
[2023-08-21] MEDS: FORMOTEROL FUMARATE 20 MCG/2 ML NEBU INHALATION SCH ×2 (08:49→20:50)
[2023-08-21] MEDS: IPRATROPIUM-ALBUTEROL 3 ML NEB IH SCH ×4 (08:49→20:50)
[2023-08-21] MEDS: ACETAMINOPHEN TAB 500 MG TAB PO PRN (08:56)
[2023-08-21] MEDS: traMADol 50 MG TAB PO SCH ×4 (08:56→21:27)
[2023-08-21] MEDS: ATORVASTATIN 40 MG TAB PO SCH (08:56)
[2023-08-21] MEDS: guaiFENesin 600 MG TABLET.ER PO SCH ×2 (08:56→21:27)
[2023-08-21] MEDS: HEPARIN SODIUM,PORCINE 5,000 UNIT/ML 1 ML VIAL SQ SCH ×3 (08:57→23:38)
--- NOTE | 2023-08-21 09:21 | P.PN ---
Subjective Progress Note Date: 08/21/23 Principal diagnosis: Right upper lobe non-small cell lung cancer with neuroendocrine features. Past medical history significant for COPD with preoperative FEV1 87% of predicted va lue and a DLCO 55% of predicted value, asthma, diverticulitis, hyperlipidemia, GERD, osteoarthritis, and chronic ongoing tobacco dependence, recently quit smoking. POD #2 bronchoscopy, right robotic assisted thoracoscopic surgery with right upper lobectomy, mediastinal lymph node dissection, intercostal nerve block 3 levels. Objective - Vital Signs Vital signs: Vital Signs Temp 98.6 F 08/21/23 08:00 Pulse 92 08/21/23 09:10 Resp 25 H 08/21/23 08:00 BP 107/53 08/21/23 08:00 Pulse Ox 95 08/21/23 08:00 FiO2 Intake & Output 08/20/23 08/21/23 08/21/23 18:59 06:59 18:59 Intake Total 765 825 Output Total 545 730 Balance 220 95 Weight 79.5 kg Intake: IV 765 825 Clindamycin 900 mg In 50 Dextrose 5% in Water 50 ml @ 50 mls/hr IVPB Q8HR [facility] Rx#:[id number] Dextrose 5%-0.45% NaCl 1, 40 000 ml @ 40 mls/hr IV . Q24H [facility] Rx#:[id number] Sodium Chloride 0.9% 1, 675 825 000 ml @ 75 mls/hr IV . [id number] [facility] Rx#:[id number] Output: Chest Tube Drainage 230 Chest Tube Right 230 Urine 545 500 Other: Voiding Method Indwelling Catheter Toilet # Voids 0 ABP, PAP, CO, CI - Last Documented Arterial Blood Pressure 127/57 - Labs CBC & Chem 7: 08/21/23 04:33 08/21/23 04:33 Labs: Abnormal Lab Results - Last 24 Hours (Table) 08/10/23 08/21/23 08/21/23 Range/Units 09:29 04:33 04:33 WBC 11.1 H (3.8-10.6) k/uL RBC 3.64 L (3.80-5.40) m/uL Hgb 10.8 L (11.4-16.0) gm/dL Hct 32.4 L (34.0-46.0) % Sodium 127 L (137-145) mmol/L Chloride 94 L (98-107) mmol/L Glucose 104 H (74-99) mg/dL Calcium 8.0 L (8.4-10.2) mg/dL Crossmatch See Detail Assessment and Plan Assessment: Right upper lobe non-small cell lung cancer with neuroendocrine features, status post bronchoscopy, right robotic assisted thoracoscopic surgery with right upper lobectomy, mediastinal lymph node dissection and intercostal nerve block 3 levels COPD with a preoperative FEV1 87% of predicted value and a DLCO 55% of predicted value Asthma Diverticulitis Hyperlipidemia GERD Osteoarthritis Chronic tobacco dependence, recently quit smoking in June 2023 Plan: We will keep her right pleural chest tube in place to water seal, continue to monitor for air leak resolution. Mucinex 1200 mg by mouth twice a day was started yesterday and we will start Mucomyst 200 mg inhalation 3 times a day today. Wean O2 as tolerated. Encourage incentive spirometry is 10 times every hour while awake. Bronchodilators/steroids per pulmonology Will monitor daily chest x-rays and labs. Discontinue 0.9% normal saline and place on 1200 mL fluid restriction today for a sodium level of 127, the patient was also started on Declomycin 150 mg by mouth twice a day by pulmonary critical care medicine. Increase activity as tolerated. Out of bed for all meals. GI/DVT prophylaxis. Pain control with current medication regimen. Acetaminophen 1000 mg by mouth every 6 hours when necessary pain added for additional pain control. Pathology results remain pending, will continue to follow. More recommendations to follow based on patient's clinical course. Time with Patient: Greater than 30
[2023-08-21] MEDS: ACETYLCYSTEINE 800 MG/4 ML VIAL INHALATION SCH ×2 (11:40→20:50)
--- NOTE | 2023-08-21 12:05 | P.PN ---
Subjective Progress Note Date: 08/21/23 Principal diagnosis: Right upper lobe non-small cell lung cancer with neuroendocrine features status post right robotic-assisted thoracoscopic surgery and the right upper lobectomy. With mediastinal node dissection postoperative day #2 This is a 57-year-old female, known history of tobacco dependence syndrome, patient saw me in the office for chronic cough. Chest x-ray in the office showed right upper lobe mass further workup including CT of the chest and PET scan showed 5.6 cm mass in the right upper lobe with hypermetabolic activity noted on the PET scan with SUV of 9.88, no evidence at the time of any further metastatic disease. Patient underwent bronchoscopy and transbronchial biopsy came back positive for poorly differentiated non-small cell lung cancer with n euroendocrine features. Patient at that time had mostly symptoms of chronic cough but no other constitutional symptoms. Patient was referred to Dr. Espino, and she underwent right robotic-assisted thoracoscopic surgery with right upper lobectomy and mediastinal lymph node dissection. Postoperatively patient was sent to the ICU she was extubated in the recovery room, and I was asked to see her on consultation this morning. Patient seems to be doing well, relatively asymptomatic, chest x-ray showed a small right-sided pneumothorax, chest tube remains in place, and she has some haziness in the right upper lung kaba. Chest tube is connected to suction and that being addressed by surgery on the case labs this morning showed a slightly low sodium of 129 her WCL is 10.3 hemoglobin 11.7, patient is on 2 L nasal cannula with O2 sat of 97% and she is hemodynamically stable Patient was reevaluated today on 08/21/2023, patient remains in the ICU as an overflow, she seems to be comfortable, not in any distress, she is on 4 L nasal cannula. Chest x-ray continues to show pneumothorax of the right apex, and now she is developing more atelectatic changes in the right upper lung field. Sue ent apparently has some mucus plugging and she is having difficulty clearing her mucous plugs and secretions. She will be placed on Mucomyst, he is receiving updrafts, and she was instructed on aggressive use of her incentive spirometer. She is also on updrafts. Patient developed also hyponatremia, did not improve much with fluids yesterday, hence I believe it is most likely SIADH picture and now I'm recommending fluid restriction and demeclocycline Objective - Vital Signs Vital signs: Vital Signs Temp 98.6 F 08/21/23 08:00 Pulse 94 08/21/23 11:43 Resp 25 H 08/21/23 08:00 BP 107/53 08/21/23 08:00 Pulse Ox 95 08/21/23 08:00 FiO2 Intake & Output 08/20/23 08/21/23 08/21/23 18:59 06:59 18:59 Intake Total 765 825 150 Output Total 545 730 750 Balance 220 95 -600 Weight 79.5 kg Intake: IV 765 825 150 Clindamycin 900 mg In 50 Dextrose 5% in Water 50 ml @ 50 mls/hr IVPB Q8HR [facility] Rx#:[id number] Dextrose 5%-0.45% NaCl 1, 40 000 ml @ 40 mls/hr IV . Q24H [facility] Rx#:[id number] Sodium Chloride 0.9% 1, 675 825 150 000 ml @ 75 mls/hr IV . [id number] [facility] Rx#:[id number] Output: Chest Tube Drainage 230 Chest Tube Right 230 Urine 545 500 750 Other: Voiding Method Indwelling Catheter Toilet Toilet # Voids 0 ABP, PAP, CO, CI - Last Documented Arterial Blood Pressure 127/57 - Exam Physical Exam: Revealed a 57-year-old female in no distress, on 4 L nasal cannula Head: Atraumatic, normocephalic. HEENT:[Neck is supple.] [No neck masses.] [No thyromegaly.] [No JVD.] Chest: [Scattered rhonchi noted bilaterally. Chest tube remains in place and there is air leak Cardiac Exam: [Normal S1 and S2, no S3 gallop, no murmur.] Abdomen: [Soft, nontender, no megaly, no rebound, no guarding, normal bowel sounds.] Extremities: [No clubbing, no edema, no cyanosis.] Neurological Exam: [No focal neurologic deficit.] Alert oriented 3 Psychiatric: Normal mood affect and normal mental status examination. Skin: No rashes. - Labs CBC & Chem 7: 08/21/23 04:33 08/21/23 04:33 Labs: Abnormal Lab Results - Last 24 Hours (Table) 08/10/23 08/21/23 08/21/23 Range/Units 09:29 04:33 04:33 WBC 11.1 H (3.8-10.6) k/uL RBC 3.64 L (3.80-5.40) m/uL Hgb 10.8 L (11.4-16.0) gm/dL Hct 32.4 L (34.0-46.0) % Sodium 127 L (137-145) mmol/L Chloride 94 L (98-107) mmol/L Glucose 104 H (74-99) mg/dL Calcium 8.0 L (8.4-10.2) mg/dL Crossmatch See Detail Assessment and Plan Assessment: Impression: Right upper lobe non-small cell lung cancer with neuroendocrine features status post right robotic-assisted thoracoscopic surgery and the right upper lobectomy. With mediastinal node dissection postoperative day #2 Right apical pneumothorax, expected. Hyponatremia secondary to SIADH Mild COPD FEV1 of 87% Dyslipidemia Chronic cough Degenerative joint disease Tobacco dependence syndrome Suspect endobronchial mucous plugging and atelectasis Recommendation: Continue bronchodilators add mucomist Encourage incentive spirometry Ambulation GI and DVT prophylaxis Add demeclocycline and continue fluid restrictions Repeat serum sodium in a.m. We'll continue to follow Time with Patient: Less than 30
[2023-08-21] MEDS: DEMECLOCYCLINE 150 MG TAB PO SCH ×2 (13:57→21:27)
[2023-08-22 04:33] LABS: HGB 10.2 gm/dL (11.4-16.0); MCH 29.7 pg (25.0-35.0); MCHC 32.8 g/dL (31.0-37.0); MCV 90.5 fL (80.0-100.0); Mean Platelet Volume 7.4; Platelet Count 246 k/uL (150-450); RBC 3.42 m/uL (3.80-5.40); RDW 12.7 % (11.5-15.5); WBC 9.7 k/uL (3.8-10.6)
[2023-08-22 04:45] LABS: African American GFR (CKD) >90 (>60 ml/min/1.73 sqM); Anion Gap 6 mmol/L; Blood Urea Nitrogen 8 mg/dL (7-17); Calcium 7.9 mg/dL (8.4-10.2); Carbon Dioxide 28 mmol/L (22-30); Chloride 95 mmol/L (98-107); Glucose 100 mg/dL (74-99); Non-African American GFR(CKD) >90 (>60 ml/min/1.73 sqM); Potassium 4.1 mmol/L (3.5-5.1); Sodium 129 mmol/L (137-145)
--- NOTE | 2023-08-22 06:27 | XR ---
EXAMINATION TYPE: XR chest 1V portable DATE OF EXAM: 08/22/2023 CLINICAL HISTORY: Difficulty breathing progress study. Status post right upper lobectomy TECHNIQUE: Single AP portable semiupright view of the chest is obtained. COMPARISON: Chest x-ray from one day earlier FINDINGS: Stable right-sided chest tube with chronic parenchymal changes bilaterally and right upper lung increased opacity. Right apical surgical changes redemonstrated with tiny resection cavity. Lef t lung remains clear. Cardiac silhouette size is stable and within normal limits. Cholecystectomy cli ps redemonstrated. Osseous structures are intact. IMPRESSION: Postsurgical changes to right upper lung is redemonstrated. Improving right apical pneumo thorax or resection cavity noted with chest tube in place. Chronic parenchymal changes with persisten t right upper and midlung atelectasis and/or infiltrate again seen. This finding is stable.
[2023-08-22] MEDS: KETOROLAC 15 MG/ML 1 ML VIAL IVP SCH ×3 (06:41→17:32)
[2023-08-22] MEDS: PANTOPRAZOLE 40 MG TABLET PO SCH ×2 (06:41→17:31)
[2023-08-22] MEDS: guaiFENesin 600 MG TABLET.ER PO SCH ×2 (08:22→20:57)
[2023-08-22] MEDS: ACETAMINOPHEN TAB 500 MG TAB PO PRN (08:22)
[2023-08-22] MEDS: traMADol 50 MG TAB PO SCH ×4 (08:22→21:00)
[2023-08-22] MEDS: HEPARIN SODIUM,PORCINE 5,000 UNIT/ML 1 ML VIAL SQ SCH ×2 (08:23→17:32)
[2023-08-22] MEDS: ATORVASTATIN 40 MG TAB PO SCH (08:23)
[2023-08-22] MEDS: DEMECLOCYCLINE 150 MG TAB PO SCH ×2 (08:23→20:57)
--- NOTE | 2023-08-22 08:41 | P.PN ---
Subjective Progress Note Date: 08/22/23 Principal diagnosis: Right upper lobe non-small cell lung cancer with neuroendocrine features. Past medical history significant for COPD with preoperative FEV1 87% of predicted va lue and a DLCO 55% of predicted value, asthma, diverticulitis, hyperlipidemia, GERD, osteoarthritis, and chronic ongoing tobacco dependence, recently quit smoking. POD #3 bronchoscopy, right robotic assisted thoracoscopic surgery with right upper lobectomy, mediastinal lymph node dissection, intercostal nerve block 3 levels. Patient was seen and examined in follow-up today 08/22/2023 at her bedside in the intensive care unit. She is sitting up to bedside chair, is awake, alert, oriented 3 and is in no acute apparent distress. She denies any complaints of pain with sitting in the chair, although is complaining of pain rating her pain 5 out of 10 on pain scale when coughing to her right chest. Denies any complaints of shortness of breath with sitting, although again is complaining of some shortness of breath with activity. She states overall she feels improved today and feels like she is coughing up some sputum which has been blood tinged. Oxygen saturation are 95% on 4 L nasal cannula and she is achieving 500-750 mL on her incentive spirometry with encouragement. Right pleural chest tube remains in place to water seal. Intermittent air leak is present. Draining thin serosanguineous drainage with 200 mL output in the last 8 hours and 370 mL output since surgery. She has been afebrile the last 24 hours. Bedside telemetry is showing normal sinus rhythm heart rate 92 BPM. He remains hemodynamically stable and is currently on no inotropic or pressor support. Chest x-ray results were reviewed, continues to re-demonstrate a persistent right upper and mid lung atelectasis and/or infiltrate. Laboratory results reviewed. Objective - Vital Signs Vital signs: Vital Signs Temp 98.9 F 08/22/23 04:00 Pulse 93 08/22/23 04:00 Resp 14 08/22/23 04:00 BP 105/63 08/22/23 04:00 Pulse Ox 95 08/22/23 04:00 FiO2 Intake & Output 08/21/23 08/22/23 08/22/23 18:59 06:59 18:59 Intake Total 150 480 Output Total 1950 600 Balance -1800 -120 Weight 81 kg Intake: IV 150 Sodium Chloride 0.9% 1, 150 000 ml @ 75 mls/hr IV . [id number] [facility] Rx#:[id number] Oral 480 Output: Chest Tube Drainage 200 Chest Tube Right 200 Urine 1950 400 Other: Voiding Method Toilet Toilet ABP, PAP, CO, CI - Last Documented Arterial Blood Pressure 127/57 - Exam CONSTITUTIONAL: Appears comfortable, cooperative, no acute distress RESPIRATORY: Lungs sounds scattered rhonchi throughout, diminished to her bilateral bases, right greater than left. Respirations are symmetrical, nonlabored. Currently on 4 L nasal cannula with oxygen saturation 95%. Able to achieve 500-750 mL on incentive spirometry. Strong loose cough, with blood- tinged sputum. CARDIOVASCULAR: S1, S2 present. Regular rate and rhythm, sinus rhythm on telemetry. Palpable peripheral pulses bilaterally. No edema present. No calf pain or tenderness noted. SCDs present. GASTROINTESTINAL: Abdomen soft, nontender, nondistended. Active bowel sounds present 4 quadrants. Tolerating diet. GENITOURINARY: Continues to void Urine output 400 mL in the last 8 hours. INTEGUMENTARY: Skin is warm and dry with evidence of good perfusion. Right chest thoracic incisions well approximated and covered with dry intact dressing. NEUROLOGIC: Cranial nerves II through XII intact. No focal deficits. MUSKULOSKELETAL: Able to move all extremities, strength equal bilaterally, gait normal PSYCHIATRIC: Alert and oriented to person place and time, appropriate affect, intact judgment and insight. INVASIVE LINES AND TUBES: Right pleural chest tube present and connected to wall suction, intermittent air leak is present with coughing and taking deep breaths. Right pleural chest tube with 200 mL serosanguineous drainage overnight, 370 mL output since surgery. - Allied health notes Allied health notes reviewed: nursing - Labs CBC & Chem 7: 08/22/23 03:25 08/22/23 03:25 Labs: Abnormal Lab Results - Last 24 Hours (Table) 08/22/23 08/22/23 Range/Units 03:25 03:25 RBC 3.42 L (3.80-5.40) m/uL Hgb 10.2 L (11.4-16.0) gm/dL Hct 31.0 L (34.0-46.0) % Sodium 129 L (137-145) mmol/L Chloride 95 L (98-107) mmol/L Glucose 100 H (74-99) mg/dL Calcium 7.9 L (8.4-10.2) mg/dL - Imaging and Cardiology Chest x-ray: report reviewed, image reviewed Assessment and Plan Assessment: Right upper lobe non-small cell lung cancer with neuroendocrine features, status post bronchoscopy, right robotic assisted thoracoscopic surgery with right upper lobectomy, mediastinal lymph node dissection and intercostal nerve block 3 levels COPD with a preoperative FEV1 87% of predicted value and a DLCO 55% of predicted value Asthma Diverticulitis Hyperlipidemia GERD Osteoarthritis Chronic tobacco dependence, recently quit smoking in June 2023 Chest x-ray, showing atelectasis right mid lung, suspect and no bronchial mucous plugging Plan: We will keep her right pleural chest tube in place to water seal, continue to monitor for air leak resolution. Continue Mucinex 1200 mg by mouth twice a day as well as Mucomyst 200 mg inhalation 3 times a day. Chest physiotherapy every 4 hours. Make nothing by mouth for possible bronchoscopy today by Dr. Hensley. Wean O2 as tolerated. Encourage incentive spirometry is 10 times every hour while awake. Bronchodilators/steroids per pulmonology Will monitor daily chest x-rays and labs. Once bronchoscopy is completed May start back on heart healthy diet with a 1200 mL fluid restriction today for a sodium level of 129, continue Declomycin 150 mg by mouth twice a day by pulmonary critical care medicine. Increase activity as tolerated. Out of bed for all meals. GI/DVT prophylaxis. Pain control with current medication regimen. Pathology results remain pending, will continue to follow. More recommendations to follow based on patient's clinical course. Time with Patient: Greater than 30
[2023-08-22] MEDS: ACETYLCYSTEINE 800 MG/4 ML VIAL INHALATION SCH ×3 (09:01→20:36)
[2023-08-22] MEDS: FORMOTEROL FUMARATE 20 MCG/2 ML NEBU INHALATION SCH ×2 (09:01→20:36)
[2023-08-22] MEDS: IPRATROPIUM-ALBUTEROL 3 ML NEB IH SCH ×4 (09:02→20:36)
--- NOTE | 2023-08-22 12:36 | P.PN ---
Subjective Progress Note Date: 08/22/23 Principal diagnosis: Right upper lobe non-small cell lung cancer with neuroendocrine features status post right robotic-assisted thoracoscopic surgery and the right upper lobectomy. With mediastinal node dissection postoperative day #3 This is a 57-year-old female, known history of tobacco dependence syndrome, patient saw me in the office for chronic cough. Chest x-ray in the office showed right upper lobe mass further workup including CT of the chest and PET scan showed 5.6 cm mass in the right upper lobe with hypermetabolic activity noted on the PET scan with SUV of 9.88, no evidence at the time of any further metastatic disease. Patient underwent bronchoscopy and transbronchial biopsy came back positive for poorly differentiated non-small cell lung cancer with n euroendocrine features. Patient at that time had mostly symptoms of chronic cough but no other constitutional symptoms. Patient was referred to Dr. Espino, and she underwent right robotic-assisted thoracoscopic surgery with right upper lobectomy and mediastinal lymph node dissection. Postoperatively patient was sent to the ICU she was extubated in the recovery room, and I was asked to see her on consultation this morning. Patient seems to be doing well, relatively asymptomatic, chest x-ray showed a small right-sided pneumothorax, chest tube remains in place, and she has some haziness in the right upper lung kaba. Chest tube is connected to suction and that being addressed by surgery on the case labs this morning showed a slightly low sodium of 129 her WCL is 10.3 hemoglobin 11.7, patient is on 2 L nasal cannula with O2 sat of 97% and she is hemodynamically stable Patient was reevaluated today on 08/21/2023, patient remains in the ICU as an overflow, she seems to be comfortable, not in any distress, she is on 4 L nasal cannula. Chest x-ray continues to show pneumothorax of the right apex, and now she is developing more atelectatic changes in the right upper lung field. Sue ent apparently has some mucus plugging and she is having difficulty clearing her mucous plugs and secretions. She will be placed on Mucomyst, he is receiving updrafts, and she was instructed on aggressive use of her incentive spirometer. She is also on updrafts. Patient developed also hyponatremia, did not improve much with fluids yesterday, hence I believe it is most likely SIADH picture and now I'm recommending fluid restriction and demeclocycline Reevaluated today 08/22/2023, patient remains in the ICU, she is basically an overflow, doing quite well, she is not in any distress. She is on 3 L nasal cannula, her chest x-ray continues to show some atelectasis in upper lung kaba, continues to have a small right-sided pneumothorax continues to have a small air leak. Patient is improving with demeclocycline and her sodium is improving. She is also improving with Mucinex, able to cough up some mucous plugs. Hence no immediate plans to perform bronchoscopy but that's to be consid ered if the patient doesn't did not show improvement. WBC count is 9.7 hemoglobin is 10.2 sodium 129 potassium 4.1 renal profile is normal. Objective - Vital Signs Vital signs: Vital Signs Temp 98.1 F 08/22/23 08:00 Pulse 86 08/22/23 12:05 Resp 18 08/22/23 08:00 BP 105/60 08/22/23 08:00 Pulse Ox 100 08/22/23 08:00 FiO2 Intake & Output 08/21/23 08/22/23 08/22/23 18:59 06:59 18:59 Intake Total 150 480 Output Total 1950 600 Balance -1800 -120 Weight 81 kg Intake: IV 150 Sodium Chloride 0.9% 1, 150 000 ml @ 75 mls/hr IV . [id number] [facility] Rx#:[id number] Oral 480 Output: Chest Tube Drainage 200 Chest Tube Right 200 Urine 1950 400 Other: Voiding Method Toilet Toilet Toilet ABP, PAP, CO, CI - Last Documented Arterial Blood Pressure 127/57 - Exam Physical Exam: Revealed a 57-year-old female in no distress, on 3 L nasal cannula Head: Atraumatic, normocephalic. HEENT:[Neck is supple.] [No neck masses.] [No thyromegaly.] [No JVD.] Chest: [Some rhonchi on forced expiratory maneuver otherwise lungs are clear right-sided chest tube remains in place with air leak noted Cardiac Exam: [Normal S1 and S2, no S3 gallop, no murmur.] Abdomen: [Soft, nontender, no megaly, no rebound, no guarding, normal bowel sounds.] Extremities: [No clubbing, no edema, no cyanosis.] Neurological Exam: [No focal neurologic deficit.] Alert oriented 3 Psychiatric: Normal mood affect and normal mental status examination. Skin: No rashes. - Labs CBC & Chem 7: 08/22/23 03:25 08/22/23 03:25 Labs: Abnormal Lab Results - Last 24 Hours (Table) 08/22/23 08/22/23 Range/Units 03:25 03:25 RBC 3.42 L (3.80-5.40) m/uL Hgb 10.2 L (11.4-16.0) gm/dL Hct 31.0 L (34.0-46.0) % Sodium 129 L (137-145) mmol/L Chloride 95 L (98-107) mmol/L Glucose 100 H (74-99) mg/dL Calcium 7.9 L (8.4-10.2) mg/dL Assessment and Plan Assessment: Impression: Right upper lobe non-small cell lung cancer with neuroendocrine features status post right robotic-assisted thoracoscopic surgery and the right upper lobectomy. With mediastinal node dissection postoperative day #3 Postoperative right apical pneumothorax, expected. Hyponatremia secondary to SIADH Mild COPD FEV1 of 87% Dyslipidemia Chronic cough Degenerative joint disease Tobacco dependence syndrome Suspect endobronchial mucous plugging and atelectasis Recommendation: Continue bronchodilators Continue mucomist Encourage incentive spirometry Ambulation GI and DVT prophylaxis Continue demeclocycline and continue fluid restrictions, 1500 mL per day Repeat serum sodium in a.m. We'll continue to follow Time with Patient: Less than 30
[2023-08-22 20:18] LABS: Glucose,Whole Blood 110 mg/dL (70-110)
[2023-08-23 05:05] LABS: HCT 30.9 % (34.0-46.0); HGB 10.3 gm/dL (11.4-16.0); MCH 29.8 pg (25.0-35.0); MCHC 33.3 g/dL (31.0-37.0); MCV 89.6 fL (80.0-100.0); Mean Platelet Volume 7.3; Platelet Count 287 k/uL (150-450); RBC 3.45 m/uL (3.80-5.40); RDW 12.9 % (11.5-15.5); WBC 9.5 k/uL (3.8-10.6)
[2023-08-23 05:23] LABS: African American GFR (CKD) >90 (>60 ml/min/1.73 sqM); Anion Gap 5 mmol/L; Blood Urea Nitrogen 8 mg/dL (7-17); Calcium 7.9 mg/dL (8.4-10.2); Carbon Dioxide 30 mmol/L (22-30); Chloride 93 mmol/L (98-107); Glucose 97 mg/dL (74-99); Non-African American GFR(CKD) >90 (>60 ml/min/1.73 sqM); Potassium 4.1 mmol/L (3.5-5.1); Sodium 128 mmol/L (137-145)
[2023-08-23] MEDS: PANTOPRAZOLE 40 MG TABLET PO SCH ×2 (06:49→17:26)
--- NOTE | 2023-08-23 07:06 | XR ---
EXAMINATION TYPE: XR chest 1V portable DATE OF EXAM: 08/23/2023 5:35 AM COMPARISON: Chest radiographs from 08/22/2023 TECHNIQUE: XR chest 1V portable Portable AP radiograph of the chest. CLINICAL INDICATION:Female, 57 years old with history of Status post right upper lobectomy; FINDINGS: Lungs/Pleura: Postsurgical changes from right upper lobectomy with patchy opacity within the right up per and mid lung. Similar right apical pneumothorax and a resection cavity. Left lung is clear. Pulmonary vascularity: Unremarkable. Heart/mediastinum: Cardiomediastinal silhouette is unremarkable. Musculoskeletal: No acute osseous pathology. Other findings: None Lines/Tubes: Stable right-sided chest tube. IMPRESSION: Postsurgical changes to the right upper lung redemonstrated. Similar right apical pneumothorax and/or resection cavity noted with chest tube in place. Chronic parenchymal changes with persistent right u pper and midlung atelectasis and/or infiltrate is again seen. Stable exam.
[2023-08-23] MEDS: FORMOTEROL FUMARATE 20 MCG/2 ML NEBU INHALATION SCH ×2 (08:10→21:44)
[2023-08-23] MEDS: IPRATROPIUM-ALBUTEROL 3 ML NEB IH SCH ×4 (08:10→21:44)
[2023-08-23] MEDS: ACETYLCYSTEINE 800 MG/4 ML VIAL INHALATION SCH ×3 (08:13→21:44)
[2023-08-23] MEDS: traMADol 50 MG TAB PO SCH ×4 (08:37→22:48)
[2023-08-23] MEDS: guaiFENesin 600 MG TABLET.ER PO SCH ×2 (08:37→20:47)
[2023-08-23] MEDS: HEPARIN SODIUM,PORCINE 5,000 UNIT/ML 1 ML VIAL SQ SCH ×3 (08:37→17:27)
[2023-08-23] MEDS: ATORVASTATIN 40 MG TAB PO SCH (08:37)
[2023-08-23] MEDS: DEMECLOCYCLINE 150 MG TAB PO SCH ×2 (08:37→20:50)
--- NOTE | 2023-08-23 09:28 | P.PN ---
Subjective Progress Note Date: 08/23/23 Principal diagnosis: Right upper lobe non-small cell lung cancer with neuroendocrine features. Past medical history significant for COPD with preoperative FEV1 87% of predicted va lue and a DLCO 55% of predicted value, asthma, diverticulitis, hyperlipidemia, GERD, osteoarthritis, and chronic ongoing tobacco dependence, recently quit smoking. POD #4 bronchoscopy, right robotic assisted thoracoscopic surgery with right upper lobectomy, mediastinal lymph node dissection, intercostal nerve block 3 levels. The patient was seen and examined in follow-up today 08/23/2023 at her bedside in the intensive care unit. Currently she is sitting up to the bedside chair, is awake, alert, oriented 3 and is in no acute apparent distress. Denies any complaints of shortness of breath with sitting, although reports she does get some shortness of breath with ambulating. The patient also reports this morning she is having some pain with coughing and taking a deep breath at her chest tube insertion site, rating her pain with coughing 5-6 out of 10 on the pain scale. Oxygen saturations are 95% on 4 L nasal cannula and she is achieving 1000 mL on her incentive spirometry with encouragement. Right pleural chest tube remains in place to water seal. No air leak is present this morning. Draining thin serositis drainage with 50 mL output in the last 8 hours and 300 mL output in the last 24 hours. She reports she was up ambulating in the intensive care unit only with standby assistance of some nursing staff and tolerating well. Bedside telemetry showing normal sinus rhythm heart rate 96 BPM. Laboratory and chest x-ray results reviewed. Objective - Vital Signs Vital signs: Vital Signs Temp 98.3 F 08/23/23 08:00 Pulse 98 08/23/23 08:47 Resp 18 08/23/23 08:00 BP 119/73 08/23/23 08:00 Pulse Ox 95 08/23/23 08:00 FiO2 Intake & Output 08/22/23 08/23/23 08/23/23 18:59 06:59 18:59 Intake Total 400 480 Output Total 1000 900 350 Balance -600 -420 -350 Weight 79.2 kg Intake: Oral 400 480 Output: Chest Tube Drainage 100 Chest Tube Right 100 Urine 900 900 350 Other: Voiding Method Toilet Toilet Toilet ABP, PAP, CO, CI - Last Documented Arterial Blood Pressure 127/57 - Exam CONSTITUTIONAL: Appears comfortable, cooperative, no acute distress RESPIRATORY: Lungs sounds scattered rhonchi throughout, diminished to her bilateral bases, right greater than left. Respirations are symmetrical, nonlabored. Currently on 4 L nasal cannula with oxygen saturation 95%. Able to achieve 1000 mL on incentive spirometry. Strong loose cough, with blood-tinged sputum. CARDIOVASCULAR: S1, S2 present. Regular rate and rhythm, sinus rhythm on telemetry. Palpable peripheral pulses bilaterally. No edema present. No calf pain or tenderness noted. SCDs present. GASTROINTESTINAL: Abdomen soft, nontender, nondistended. Active bowel sounds present 4 quadrants. Tolerating diet. GENITOURINARY: Continues to void Urine output 900 mL in the last 8 hours. INTEGUMENTARY: Skin is warm and dry with evidence of good perfusion. Right chest thoracic incisions well approximated and covered with dry intact dressing. NEUROLOGIC: Cranial nerves II through XII intact. No focal deficits. MUSKULOSKELETAL: Able to move all extremities, strength equal bilaterally, gait normal. PSYCHIATRIC: Alert and oriented to person place and time, appropriate affect, intact judgment and insight. INVASIVE LINES AND TUBES: Right pleural chest tube present and is to water seal, no air leak is present. Right pleural chest tube with 50 mL serosanguineous drainage overnight, 300 mL output in the last 24 hours. - Allied health notes Allied health notes reviewed: nursing - Labs CBC & Chem 7: 08/23/23 04:43 08/23/23 04:43 Labs: Abnormal Lab Results - Last 24 Hours (Table) 08/23/23 08/23/23 Range/Units 04:43 04:43 RBC 3.45 L (3.80-5.40) m/uL Hgb 10.3 L (11.4-16.0) gm/dL Hct 30.9 L (34.0-46.0) % Sodium 128 L (137-145) mmol/L Chloride 93 L (98-107) mmol/L Calcium 7.9 L (8.4-10.2) mg/dL - Imaging and Cardiology Chest x-ray: report reviewed, image reviewed Assessment and Plan Assessment: Right upper lobe non-small cell lung cancer with neuroendocrine features, status post bronchoscopy, right robotic assisted thoracoscopic surgery with right upper lobectomy, mediastinal lymph node dissection and intercostal nerve block 3 levels COPD with a preoperative FEV1 87% of predicted value and a DLCO 55% of predicted value Asthma Diverticulitis Hyperlipidemia GERD Osteoarthritis Chronic tobacco dependence, recently quit smoking in June 2023 Chest x-ray, showing atelectasis right mid lung, suspect and no bronchial mucous plugging Plan: We will remove her right pleural chest tube today and possibly after the bronchoscopy is completed if the chest tube continues to have no air leak. Continue Mucinex 1200 mg by mouth twice a day as well as Mucomyst 200 mg inhalation 3 times a day. Chest physiotherapy every 4 hours. Nothing by mouth for bronchoscopy today by Dr. Hedrick. Wean O2 as tolerated. Encourage incentive spirometry is 10 times every hour while awake. Bronchodilators/steroids per pulmonology Will monitor daily chest x-rays and labs. Once bronchoscopy is completed May start back on heart healthy diet with a 1200 mL fluid restriction today for a sodium level of 129, continue Declomycin 150 mg by mouth twice a day by pulmonary critical care medicine. Flutter valve ordered by pulmonary critical care service. Once the bronchoscopy is completed, we will repeat a chest x-ray and remove the chest tube if it continues to have no air leak. Increase activity as tolerated. Out of bed for all meals. GI/DVT prophylaxis. Pain control with current medication regimen. Pathology results remain pending, will continue to follow. More recommendations to follow based on patient's clinical course. Time with Patient: Greater than 30
[2023-08-23] MEDS ORDERED: PROPOFOL 10 MG/ML 20 ML VIAL IV ONE (10:44)
[2023-08-23] MEDS ORDERED: LIDOCAINE 2% INJ 20 MG/ML INTRATRACH ONE (10:52)
[2023-08-23] MEDS ORDERED: IV FLUID CONTINUATION 1,000 ML IV ONE (11:00)
--- NOTE | 2023-08-23 12:01 | XR ---
EXAMINATION TYPE: XR chest 1V portable DATE OF EXAM: 08/23/2023 11:55 AM COMPARISON: Chest radiographs from 08/23/2023 TECHNIQUE: XR chest 1V portable Portable AP radiograph of the chest. CLINICAL INDICATION:Female, 57 years old with history of Status post bronchoscopy; FINDINGS: Lungs/Pleura: Increased small right apical pneumothorax from prior examination. Left lung is clear. P ostsurgical changes from right upper lobectomy redemonstrated with consolidative opacities within the right upper/midlung. Pulmonary vascularity: Unremarkable. Heart/mediastinum: Cardiomediastinal silhouette is unremarkable. Musculoskeletal: No acute osseous pathology. Other findings: None Lines/Tubes: Left chest tube in stable position. IMPRESSION: 1. Increased small right apical pneumothorax from prior exam. Right-sided chest tube remains in plac e. 2. Postsurgical changes from right upper lobectomy with consolidation demonstrated.
[2023-08-23] MEDS: ACETAMINOPHEN TAB 500 MG TAB PO PRN ×2 (13:04→20:46)
--- NOTE | 2023-08-23 13:06 | P.PN ---
Subjective Progress Note Date: 08/23/23 Principal diagnosis: Status post right upper lobectomy. This is a 57-year-old female, known history of tobacco dependence syndrome, patient saw me in the office for chronic cough. Chest x-ray in the office showed right upper lobe mass further workup including CT of the chest and PET scan showed 5.6 cm mass in the right upper lobe with hypermetabolic activity noted on the PET scan with SUV of 9.88, no evidence at the time of any further metastatic disease. 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 Patient at that time had mostly symptoms of chronic cough but no other constitutional symptoms. Patient was referred to Dr. Espino, and she underwent right robotic-assisted thoracoscopic surgery with right upper lobectomy and mediastinal lymph node dissection. Postoperatively patient was sent to the ICU she was extubated in the recovery room, and I was asked to see her on consultation this morning. Patient seems to be doing well, relatively asymptomatic, chest x-ray showed a small right-sided pneumothorax, chest tube remains in place, and she has some haziness in the right upper lung kaba. Chest tube is connected to suction and that being addressed by surgery on the case labs this morning showed a slightly low sodium of 129 her WCL is 10.3 hem oglobin 11.7, patient is on 2 L nasal cannula with O2 sat of 97% and she is hemodynamically stable Patient was reevaluated today on 08/21/2023, patient remains in the ICU as an overflow, she seems to be comfortable, not in any distress, she is on 4 L nasal cannula. Chest x-ray continues to show pneumothorax of the right apex, and now she is developing more atelectatic changes in the right upper lung field. Patient apparently has some mucus plugging and she is having difficulty clearing her mucous plugs and secretions. She will be placed on Mucomyst, he is receiving updrafts, and she was instructed on aggressive use of her incentive spirometer. She is also on updrafts. Patient developed also hyponatremia, did not improve much with fluids yesterday, hence I believe it is most likely SIADH picture and now I'm recommending fluid restriction and demeclocycline Reevaluated today 08/22/2023, patient remains in the ICU, she is basically an overflow, doing quite well, she is not in any distress. She is on 3 L nasal cannula, her chest x-ray continues to show some atelectasis in upper lung kaba, continues to have a small right-sided pneumothorax continues to have a small air leak. Patient is improving with demeclocycline and her sodium is improving. She is also improving with Mucinex, able to cough up some mucous plugs. Hence no immediate plans to perform bronchoscopy but that's to be considered if the patient doesn't did not show improvement. WBC count is 9.7 hemoglobin is 10.2 sodium 129 potassium 4.1 renal profile is normal. Progress note dated 08/23/2023. This is a 57-year-old female who was admitted on August 19, for a right upper lobectomy, secondary to lung cancer, which was performed on August 19. Currently, she is on 4 L of oxygen, and not receiving any IV fluids. The patient's chest x-rays continue to so infiltrate, likely in the lingula, since there is no right upper lobe anymore. Anyway, cardiothoracic surgery would like me to do a bronchoscopy, and clearing out any secretions in the lung, which may be attributing to her abnormality. The patient is congested in the chest, and is coughing up some phlegm. White count 9.5, hemoglobin 10.3, hematocrit 30.9, the platelet count 287,000. Sodium 128, potassium 4.1, chloride 93, CO2 30, BUN 8, creatinine 0.63. Chest x-ray shows a small right apical pneumothorax, and consolidation, likely in the lingula, since there is no right upper lobe. Objective - Vital Signs Vital signs: Vital Signs Temp 98.6 F 08/23/23 12:00 Pulse 98 08/23/23 12:00 Resp 20 08/23/23 12:00 BP 127/67 08/23/23 12:00 Pulse Ox 94 L 08/23/23 12:00 FiO2 Intake & Output 08/22/23 08/23/23 08/23/23 18:59 06:59 18:59 Intake Total 400 480 200 Output Total 1000 900 350 Balance -600 -420 -150 Weight 79.2 kg Intake: IV 200 Oral 400 480 Output: Chest Tube Drainage 100 Chest Tube Right 100 Urine 900 900 350 Other: Voiding Method Toilet Toilet Toilet ABP, PAP, CO, CI - Last Documented Arterial Blood Pressure 127/57 - Exam No acute distress, oriented 3. The patient's currently on 4 L. Saturations are 94%. No audible wheezing. HEENT examination is grossly unremarkable. Mucous membranes are moist. No oral lesions. Neck supple. Full range of motion. No adenopathy thyromegaly or neck vein distention. Cardiovascular examination reveals regular rhythm rate. S1-S2 normal. No S3 or S4. No discernible murmur noted. Heart rate 98 bpm. Lungs reveal coarse bilateral rhonchi. Minimal crackles. No wheezes. Breath sounds equal bilaterally. Saturations are 94% on 4 L. Abdomen soft bowel sounds are heard. No masses or tenderness. Extremities are intact. No cyanosis clubbing or edema. Skin is without rash or lesion. Neurologic examination is brief but nonfocal. - Labs CBC & Chem 7: 08/23/23 04:43 08/23/23 04:43 Labs: Abnormal Lab Results - Last 24 Hours (Table) 08/23/23 08/23/23 Range/Units 04:43 04:43 RBC 3.45 L (3.80-5.40) m/uL Hgb 10.3 L (11.4-16.0) gm/dL Hct 30.9 L (34.0-46.0) % Sodium 128 L (137-145) mmol/L Chloride 93 L (98-107) mmol/L Calcium 7.9 L (8.4-10.2) mg/dL Assessment and Plan Assessment: Status post right upper lobectomy, for non-small cell lung cancer, postop day #4. Status post mediastinal lymph node dissection, postop day #4. Postoperative right apical pneumothorax, expected. Hyponatremia, secondary to SIADH. Mild COPD with an FEV1 that's 87% of predicted. Dyslipidemia. Chronic cough. DJD. Tobacco dependence syndrome. Endobronchial mucus plugging and atelectasis, right lung. Plan: Plan dated 08/23/2023. The patient will undergo a bronchoscopy this morning. In addition, we recommend continued use of incentive spirometer, as well as a flutter valve, that will be ordered for the patient. Currently, the patient's on 4 L. She will have a chest x-ray after bronchoscopy. Additional recommendations and suggestions are forthcoming. Today is postop day #4, status post robotically assisted right upper lobectomy, and mediastinal lymph node dissection for lung cancer, non- small cell type. Prognosis is guarded. We will continue to follow. Time with Patient: Greater than 30
[2023-08-23] MEDS ORDERED: POTASSIUM CHLORIDE ER 10 MEQ TAB.ER.PRT PO STA (13:30)
[2023-08-23] MEDS ORDERED: FUROSEMIDE 10 MG/ML 2 ML VIAL IV ONE (13:45)
--- NOTE | 2023-08-23 17:53 | PCN ---
PROCEDURE NOTE PROCEDURES PERFORMED: Bronchoscopy, airway examination, therapeutic lavage, and bronchoalveolar lavage of right middle lobe. PREOPERATIVE DIAGNOSES: Right middle lobe collapse, status post right upper lobectomy, lung cancer. POSTOPERATIVE DIAGNOSES: Right middle lobe collapse, status post right upper lobectomy, lung cancer. FIRST OFFSET PROOF PRESS OPERATOR: Dr. Abi Goodman. WEB DEVELOPMENT INSTRUCTOR was Panda Schmidt. DESCRIPTION OF PROCEDURE: The patient's procedure took place in room 256. The patient was receiving oxygen therapy during the procedure at 6 L. After the patient was adequately sedated and being fully monitored, the bronchoscope was inserted through the right nostril. It passed through the right nasopharynx into the oropharynx. The hypopharynx was identified. The hypopharyngeal structures including anterior commissure, true cords, false cords, arytenoids, piriform sinuses - right and left, and valleculae, all appeared normal. After topicalization, the bronchoscope was pushed through the glottic opening into the trachea. The trachea appeared normal. There were some secretions noted in the [id number] trachea. They were suctioned. Next, after topicalization of the left mainstem, the left upper lobe proper and its 2 segments, the lingula and its 2 segments, and the left lower lobe and its 4 segments were found to be completely normal. Scant secretions were noted on the left side. On the right side, after topicalization, it was noted that there was no right upper lobe as the patient recently had the right upper lobectomy. There were right middle lobe and right lower lobe. They were twisted a bit counter-clockwise. The 2 segments of the right middle lobe and the 5 segments of the right lower lobe were all evaluated. Everything was patent. There were some secretions noted in the right middle lobe. They were suctioned. We did that with the aid of saline lavage. Then, the bronchoscope was wedged into the right middle lobe. We did a formal BAL. More than 20 mL of turbid fluid was recovered. The fluid will be sent for analysis and for laboratory. There was no immediate complication. The patient tolerated the procedure well. The bronchoscope was then withdrawn. MMODL / IJN: [id number] /
[2023-08-24] MEDS: HEPARIN SODIUM,PORCINE 5,000 UNIT/ML 1 ML VIAL SQ SCH ×3 (00:10→15:24)
[2023-08-24 04:39] LABS: HCT 30.8 % (34.0-46.0); HGB 10.5 gm/dL (11.4-16.0); MCH 30.4 pg (25.0-35.0); MCHC 34.2 g/dL (31.0-37.0); Platelet Count 326 k/uL (150-450); RBC 3.46 m/uL (3.80-5.40); RDW 12.6 % (11.5-15.5)
[2023-08-24 04:57] LABS: African American GFR (CKD) >90 (>60 ml/min/1.73 sqM); Anion Gap 6 mmol/L; Blood Urea Nitrogen 8 mg/dL (7-17); Carbon Dioxide 34 mmol/L (22-30); Chloride 92 mmol/L (98-107); Glucose 110 mg/dL (74-99); Non-African American GFR(CKD) >90 (>60 ml/min/1.73 sqM); Potassium 3.6 mmol/L (3.5-5.1); Sodium 132 mmol/L (137-145)
[2023-08-24] MEDS ORDERED: Potassium Replacement Protocol 1 EACH MISC MISCELLANE PRN ×2 (05:24→14:25)
[2023-08-24] MEDS ORDERED: POTASSIUM CHLORIDE ER 20 MEQ TAB.ER PO SCH ×2 (06:00→15:00)
[2023-08-24] MEDS: PANTOPRAZOLE 40 MG TABLET PO SCH ×2 (06:38→17:52)
[2023-08-24] MEDS: ACETAMINOPHEN TAB 500 MG TAB PO PRN (06:49)
--- NOTE | 2023-08-24 07:57 | P.PN ---
Subjective Progress Note Date: 08/24/23 Principal diagnosis: Right upper lobe non-small cell lung cancer with neuroendocrine features. Past medical history significant for COPD with preoperative FEV1 87% of predicted va lue and a DLCO 55% of predicted value, asthma, diverticulitis, hyperlipidemia, GERD, osteoarthritis, and chronic ongoing tobacco dependence, recently quit smoking. POD #5 bronchoscopy, right robotic assisted thoracoscopic surgery with right upper lobectomy, mediastinal lymph node dissection, intercostal nerve block 3 levels. The patient was seen and examined in follow-up today 08/24/2023 at her bedside in the intensive care unit. She is currently sitting up to the bedside chair, is awake, alert, oriented 3 and is in no acute apparent distress. Denies any complaints of shortness of breath with sitting, although continues to report some episodes of shortness of breath with ambulating and activity, denies any complaints of pain at this time and still is complaining of a productive cough with brownish color sputum. Oxygen saturation are 93% on 4 L nasal cannula and she is achieving 750-1000 mL on her incentive spirometry with encouragement. Bedside telemetry showing normal sinus rhythm heart rate 89 BPM. Laboratory and Chest x-ray results reviewed. Her right pleural chest tube was removed without incident yesterday. She continues to amb[facility] assistance from nursing staff. The patient underwent a bronchoscopy, airway examination, therapeutic lavage and bronchial alveolar lavage of the right middle lobe performed by Dr. Hedrick yesterday, patient tolerated well. Objective - Vital Signs Vital signs: Vital Signs Temp 98 F 08/24/23 04:00 Pulse 86 08/24/23 04:00 Resp 13 08/24/23 04:00 BP 116/61 08/24/23 04:00 Pulse Ox 95 08/24/23 04:00 FiO2 Intake & Output 08/23/23 08/24/23 08/24/23 18:59 06:59 18:59 Intake Total 200 300 Output Total 2300 800 Balance -2100 -500 Weight 79.3 kg Intake: IV 200 Oral 300 Output: Chest Tube Drainage 100 Chest Tube Right 100 Urine 2200 800 Other: Voiding Method Toilet Toilet ABP, PAP, CO, CI - Last Documented Arterial Blood Pressure 127/57 - Exam CONSTITUTIONAL: Appears comfortable, cooperative, no acute distress RESPIRATORY: Lungs sounds scattered expiratory wheezes throughout, diminished to her bilateral bases, right greater than left. Respirations are symmetrical, nonlabored. Currently on 4 L nasal cannula with oxygen saturation 93%. Able to achieve 750-1000 mL on incentive spirometry. Strong loose cough, with brown tinged sputum. CARDIOVASCULAR: S1, S2 present. Regular rate and rhythm, sinus rhythm on telemetry. Palpable peripheral pulses bilaterally. No edema present. No calf pain or tenderness noted. SCDs present. GASTROINTESTINAL: Abdomen soft, nontender, nondistended. Active bowel sounds present 4 quadrants. Tolerating diet. GENITOURINARY: Continues to void Urine output 800 mL in the last 8 hours. INTEGUMENTARY: Skin is warm and dry with evidence of good perfusion. Right chest thoracic incisions well approximated and covered with dry intact dressing. NEUROLOGIC: Cranial nerves II through XII intact. No focal deficits. MUSKULOSKELETAL: Able to move all extremities, strength equal bilaterally, gait normal. PSYCHIATRIC: Alert and oriented to person place and time, appropriate affect, intact judgment and insight. - Allied health notes Allied health notes reviewed: nursing - Labs CBC & Chem 7: 08/24/23 04:06 08/24/23 04:06 Labs: Abnormal Lab Results - Last 24 Hours (Table) 08/24/23 08/24/23 Range/Units 04:06 04:06 RBC 3.46 L (3.80-5.40) m/uL Hgb 10.5 L (11.4-16.0) gm/dL Hct 30.8 L (34.0-46.0) % Sodium 132 L (137-145) mmol/L Chloride 92 L (98-107) mmol/L Carbon Dioxide 34 H (22-30) mmol/L Glucose 110 H (74-99) mg/dL Calcium 8.0 L (8.4-10.2) mg/dL - Imaging and Cardiology Chest x-ray: report reviewed, image reviewed Assessment and Plan Assessment: Right upper lobe non-small cell lung cancer with neuroendocrine features, status post bronchoscopy, right robotic assisted thoracoscopic surgery with right upper lobectomy, mediastinal lymph node dissection and intercostal nerve block 3 levels COPD with a preoperative FEV1 87% of predicted value and a DLCO 55% of predicted value Asthma Diverticulitis Hyperlipidemia GERD Osteoarthritis Chronic tobacco dependence, recently quit smoking in June 2023 Chest x-ray, showing atelectasis right mid lung Plan: Continue Mucinex 1200 mg by mouth twice a day as well as Mucomyst 200 mg inhalation 3 times a day. Chest physiotherapy every 4 hours. Nothing by mouth for bronchoscopy today by Dr. Hedrick. Wean O2 as tolerated. Encourage incentive spirometry is 10 times every hour while awake. Bronchodilators/steroids per pulmonology Will monitor daily chest x-rays and labs. Continue to encourage Flutter valve ordered by pulmonary critical care service. Increase activity as tolerated. Out of bed for all meals. GI/DVT prophylaxis. Pain control with current medication regimen. Pathology results remain pending, will continue to follow. Transfer orders placed to [facility] cardiac stepdown unit. More recommendations to follow based on patient's clinical course. Time with Patient: Greater than 30
[2023-08-24] MEDS: IPRATROPIUM-ALBUTEROL 3 ML NEB IH SCH ×4 (08:17→20:37)
[2023-08-24] MEDS: ACETYLCYSTEINE 800 MG/4 ML VIAL INHALATION SCH ×3 (08:17→20:37)
[2023-08-24] MEDS: FORMOTEROL FUMARATE 20 MCG/2 ML NEBU INHALATION SCH ×2 (08:17→20:37)
[2023-08-24] MEDS: traMADol 50 MG TAB PO SCH ×4 (08:58→20:36)
[2023-08-24] MEDS: ATORVASTATIN 40 MG TAB PO SCH (08:58)
[2023-08-24] MEDS: guaiFENesin 600 MG TABLET.ER PO SCH ×2 (08:58→20:36)
[2023-08-24] MEDS: DEMECLOCYCLINE 150 MG TAB PO SCH ×2 (09:13→20:36)
--- NOTE | 2023-08-24 10:29 | XR ---
EXAMINATION TYPE: XR chest 2V DATE OF EXAM: 08/24/2023 COMPARISON: 08/23/2023 INDICATION: Pneumothorax TECHNIQUE: Frontal and lateral views of the chest are obtained. FINDINGS: The heart size is normal. The pulmonary vasculature is normal. There is opacification of the right upper lung field. An air-fluid level at the right apex. Second a ir-fluid level is within the anterior right middle lobe. Cavitation should be considered. There is a moderate size right pneumothorax which has minimally diminished in size over the interval. The chest tube has been removed on the right. Mild blunting of the left costophrenic angle is noted. . IMPRESSION: 1. Right apical pneumothorax minimally diminished from comparison. The chest tube is been removed. 2. Scattered air-fluid levels within the right lung field. Cavitary lesions should be considered
[2023-08-24 11:00] LABS: Appearance,BF Slightly Hazy (Clear); RBC, Body Fluid 795 /UL (0-2000)
--- NOTE | 2023-08-24 11:16 | P.PN ---
Subjective Progress Note Date: 08/24/23 Principal diagnosis: Status post right upper lobectomy. This is a 57-year-old female, known history of tobacco dependence syndrome, patient saw me in the office for chronic cough. Chest x-ray in the office showed right upper lobe mass further workup including CT of the chest and PET scan showed 5.6 cm mass in the right upper lobe with hypermetabolic activity noted on the PET scan with SUV of 9.88, no evidence at the time of any further metastatic disease. 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 Patient at that time had mostly symptoms of chronic cough but no other constitutional symptoms. Patient was referred to Dr. Espino, and she underwent right robotic-assisted thoracoscopic surgery with right upper lobectomy and mediastinal lymph node dissection. Postoperatively patient was sent to the ICU she was extubated in the recovery room, and I was asked to see her on consultation this morning. Patient seems to be doing well, relatively asymptomatic, chest x-ray showed a small right-sided pneumothorax, chest tube remains in place, and she has some haziness in the right upper lung kaba. Chest tube is connected to suction and that being addressed by surgery on the case labs this morning showed a slightly low sodium of 129 her WCL is 10.3 hem oglobin 11.7, patient is on 2 L nasal cannula with O2 sat of 97% and she is hemodynamically stable Patient was reevaluated today on 08/21/2023, patient remains in the ICU as an overflow, she seems to be comfortable, not in any distress, she is on 4 L nasal cannula. Chest x-ray continues to show pneumothorax of the right apex, and now she is developing more atelectatic changes in the right upper lung field. Patient apparently has some mucus plugging and she is having difficulty clearing her mucous plugs and secretions. She will be placed on Mucomyst, he is receiving updrafts, and she was instructed on aggressive use of her incentive spirometer. She is also on updrafts. Patient developed also hyponatremia, did not improve much with fluids yesterday, hence I believe it is most likely SIADH picture and now I'm recommending fluid restriction and demeclocycline Reevaluated today 08/22/2023, patient remains in the ICU, she is basically an overflow, doing quite well, she is not in any distress. She is on 3 L nasal cannula, her chest x-ray continues to show some atelectasis in upper lung kaba, continues to have a small right-sided pneumothorax continues to have a small air leak. Patient is improving with demeclocycline and her sodium is improving. She is also improving with Mucinex, able to cough up some mucous plugs. Hence no immediate plans to perform bronchoscopy but that's to be considered if the patient doesn't did not show improvement. WBC count is 9.7 hemoglobin is 10.2 sodium 129 potassium 4.1 renal profile is normal. Progress note dated 08/23/2023. This is a 57-year-old female who was admitted on August 19, for a right upper lobectomy, secondary to lung cancer, which was performed on August 19. Currently, she is on 4 L of oxygen, and not receiving any IV fluids. The patient's chest x-rays continue to so infiltrate, likely in the RML, since there is no right upper lobe anymore. Anyway, cardiothoracic surgery would like me to do a bronchoscopy, and clearing out any secretions in the lung, which may be attributing to her abnormality. The patient is congested in the chest, and is coughing up some phlegm. White count 9.5, hemoglobin 10.3, hematocrit 30.9, the platelet count 287,000. Sodium 128, potassium 4.1, chloride 93, CO2 30, BUN 8, creatinine 0.63. Chest x-ray shows a small right apical pneumothorax, and consolidation, likely in the RML, since there is no right upper lobe. Progress note dated 08/24/2023. 57-year-old female was admitted to the hospital on August 19, for right upper lobectomy, secondary to lung cancer. Surgery was performed on August 19. Currently, she is resting comfortably in the intensive care unit. She's in room 256. She continues on oxygen at 4 L. She's not receiving any IV fluids. Yesterday, we did bronchoscopy, and BAL, to the right middle lobe. The patient does not have a right upper lobe. The BAL was sent for cytology, and microbiology. Currently, she is doing better, and in my opinion, her chest x- ray shows improvement in the infiltrate, in the right middle lobe. Labs today include a white count of 8, hemoglobin 10.5, hematocrit 30.8, and a normal platelet count. Sodium 132, potassium 3.7, chlorides 92, CO2 34, with a normal BUN and creatinine. If fluid analysis shows significant fluid be hazy, with 73% PMNs. In my opinion, the infiltrate in the right middle lobe, is improved, and the patient has a very small right apical pneumothorax. Chest tube has been removed. Objective - Vital Signs Vital signs: Vital Signs Temp 97.9 F 08/24/23 08:00 Pulse 86 08/24/23 08:34 Resp 15 08/24/23 08:00 BP 103/59 08/24/23 08:00 Pulse Ox 96 08/24/23 08:21 FiO2 Intake & Output 08/23/23 08/24/23 08/24/23 18:59 06:59 18:59 Intake Total 200 300 Output Total 2300 800 Balance -2100 -500 Weight 79.3 kg Intake: IV 200 Oral 300 Output: Chest Tube Drainage 100 Chest Tube Right 100 Urine 2200 800 Other: Voiding Method Toilet Toilet ABP, PAP, CO, CI - Last Documented Arterial Blood Pressure 127/57 - Exam No acute distress, oriented 3. The patient's currently on 4 L. Saturations are 96%. No audible wheezing. HEENT examination is grossly unremarkable. Mucous membranes are moist. No oral lesions. Neck supple. Full range of motion. No adenopathy thyromegaly or neck vein distention. Cardiovascular examination reveals regular rhythm rate. S1-S2 normal. No S3 or S4. No discernible murmur noted. Heart rate 86bpm. Lungs reveal coarse bilateral rhonchi. Minimal crackles. No wheezes. Breath sounds equal bilaterally. Saturations are 96% on 4 L. Abdomen soft bowel sounds are heard. No masses or tenderness. Extremities are intact. No cyanosis clubbing or edema. Skin is without rash or lesion. Neurologic examination is brief but nonfocal. - Labs CBC & Chem 7: 08/24/23 04:06 08/24/23 08:56 Labs: Abnormal Lab Results - Last 24 Hours (Table) 08/23/23 08/24/23 08/24/23 Range/Units 11:00 04:06 04:06 RBC 3.46 L (3.80-5.40) m/uL Hgb 10.5 L (11.4-16.0) gm/dL Hct 30.8 L (34.0-46.0) % Sodium 132 L (137-145) mmol/L Chloride 92 L (98-107) mmol/L Carbon Dioxide 34 H (22-30) mmol/L Glucose 110 H (74-99) mg/dL Calcium 8.0 L (8.4-10.2) mg/dL Fluid Appearance Slightly Hazy A (Clear) Assessment and Plan Assessment: Status post right upper lobectomy, for non-small cell lung cancer, postop day #5. Status post mediastinal lymph node dissection, postop day #5. Status post bronchoscopy, 08/23/2023, with BAL to the right middle lobe. Postoperative right apical pneumothorax, expected. Hyponatremia, secondary to SIADH. Mild COPD with an FEV1 that's 87% of predicted. Dyslipidemia. Chronic cough. DJD. Tobacco dependence syndrome. Endobronchial mucus plugging and atelectasis, right lung. Plan: Plan dated 08/23/2023. The patient will undergo a bronchoscopy this morning. In addition, we recommend continued use of incentive spirometer, as well as a flutter valve, that will be ordered for the patient. Currently, the patient's on 4 L. She will have a chest x-ray after bronchoscopy. Additional recommendations and suggestions are forthcoming. Today is postop day #4, status post robotically assisted right upper lobectomy, and mediastinal lymph node dissection for lung cancer, non- small cell type. Prognosis is guarded. We will continue to follow. Plan dated 08/24/2023. The patient is seen today in room 256. She remains on 4 L of oxygen. No IV fluids. Yesterday, she had bronchoscopy and therapeutic lavage, with BAL to, to the right middle lobe. The fluid was sent for analysis including microbiology. Clinically, she appears relatively stable. In my opinion, the chest x-rays improved. Labs, x-rays, medications are reviewed. No additional recommendations are made. Prognosis is guarded. Time with Patient: Less than 30
[2023-08-24 12:11] LABS: Nucleated Cells, Body Fluid 20 /UL
[2023-08-25] MEDS: ACETAMINOPHEN TAB 500 MG TAB PO PRN (00:16)
[2023-08-25] MEDS: HEPARIN SODIUM,PORCINE 5,000 UNIT/ML 1 ML VIAL SQ SCH ×4 (00:16→22:04)
[2023-08-25] MEDS: PANTOPRAZOLE 40 MG TABLET PO SCH ×2 (06:18→17:07)
--- NOTE | 2023-08-25 07:15 | XR ---
EXAMINATION TYPE: XR chest 2V DATE OF EXAM: 08/25/2023 COMPARISON: 08/24/2023 HISTORY: post op right upper lobectomy TECHNIQUE: Frontal and lateral views of the chest are obtained. FINDINGS: Right apical pneumothorax remains unchanged with hydropneumothorax component seen. Overall no signifi cant change appreciated. Right suprahilar opacity seen as well as small right-sided effusion and pleu ral parenchymal density. Second air-fluid level is seen within the right midlung zone. Heart size is stable. Mediastinal structures are stable and grossly unremarkable. No evidence for hilar prominence. Degenerative changes dorsal spine. IMPRESSION: 1. Stable chest
[2023-08-25 08:55] LABS: HCT 32.5 % (34.0-46.0); HGB 10.6 gm/dL (11.4-16.0); MCH 29.7 pg (25.0-35.0); MCHC 32.7 g/dL (31.0-37.0); MCV 90.8 fL (80.0-100.0); Mean Platelet Volume 7.2; Platelet Count 376 k/uL (150-450); RBC 3.58 m/uL (3.80-5.40); RDW 12.7 % (11.5-15.5); WBC 8.7 k/uL (3.8-10.6)
[2023-08-25] MEDS: traMADol 50 MG TAB PO SCH ×4 (09:15→21:11)
[2023-08-25 09:16] LABS: African American GFR (CKD) >90 (>60 ml/min/1.73 sqM); Anion Gap 6 mmol/L; Blood Urea Nitrogen 11 mg/dL (7-17); Calcium 8.3 mg/dL (8.4-10.2); Carbon Dioxide 34 mmol/L (22-30); Chloride 92 mmol/L (98-107); Glucose 87 mg/dL (74-99); Non-African American GFR(CKD) >90 (>60 ml/min/1.73 sqM); Potassium 4.1 mmol/L (3.5-5.1); Sodium 132 mmol/L (137-145)
[2023-08-25] MEDS: DEMECLOCYCLINE 150 MG TAB PO SCH ×2 (09:16→21:11)
[2023-08-25] MEDS: guaiFENesin 600 MG TABLET.ER PO SCH ×2 (09:16→21:11)
[2023-08-25] MEDS: ATORVASTATIN 40 MG TAB PO SCH (09:16)
[2023-08-25] MEDS: ACETYLCYSTEINE 800 MG/4 ML VIAL INHALATION SCH ×3 (09:38→20:54)
[2023-08-25] MEDS: IPRATROPIUM-ALBUTEROL 3 ML NEB IH SCH ×4 (09:38→20:54)
[2023-08-25] MEDS: FORMOTEROL FUMARATE 20 MCG/2 ML NEBU INHALATION SCH ×2 (09:38→20:54)
[2023-08-25] MEDS ORDERED: FUROSEMIDE 10 MG/ML 2 ML VIAL IV ONE (10:47)
[2023-08-25] MEDS ORDERED: POTASSIUM CHLORIDE ER 10 MEQ TAB.ER.PRT PO STA (10:49)
[2023-08-25] MEDS ORDERED: bisacodyL 10 MG SUPP RECTAL STA (12:13)
--- NOTE | 2023-08-25 13:15 | P.PN ---
Subjective Progress Note Date: 08/25/23 Principal diagnosis: Status post right upper lobectomy. This is a 57-year-old female, known history of tobacco dependence syndrome, patient saw me in the office for chronic cough. Chest x-ray in the office showed right upper lobe mass further workup including CT of the chest and PET scan showed 5.6 cm mass in the right upper lobe with hypermetabolic activity noted on the PET scan with SUV of 9.88, no evidence at the time of any further metastatic disease. 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 Patient at that time had mostly symptoms of chronic cough but no other constitutional symptoms. Patient was referred to Dr. Espino, and she underwent right robotic-assisted thoracoscopic surgery with right upper lobectomy and mediastinal lymph node dissection. Postoperatively patient was sent to the ICU she was extubated in the recovery room, and I was asked to see her on consultation this morning. Patient seems to be doing well, relatively asymptomatic, chest x-ray showed a small right-sided pneumothorax, chest tube remains in place, and she has some haziness in the right upper lung kaba. Chest tube is connected to suction and that being addressed by surgery on the case labs this morning showed a slightly low sodium of 129 her WCL is 10.3 hem oglobin 11.7, patient is on 2 L nasal cannula with O2 sat of 97% and she is hemodynamically stable Patient was reevaluated today on 08/21/2023, patient remains in the ICU as an overflow, she seems to be comfortable, not in any distress, she is on 4 L nasal cannula. Chest x-ray continues to show pneumothorax of the right apex, and now she is developing more atelectatic changes in the right upper lung field. Patient apparently has some mucus plugging and she is having difficulty clearing her mucous plugs and secretions. She will be placed on Mucomyst, he is receiving updrafts, and she was instructed on aggressive use of her incentive spirometer. She is also on updrafts. Patient developed also hyponatremia, did not improve much with fluids yesterday, hence I believe it is most likely SIADH picture and now I'm recommending fluid restriction and demeclocycline Reevaluated today 08/22/2023, patient remains in the ICU, she is basically an overflow, doing quite well, she is not in any distress. She is on 3 L nasal cannula, her chest x-ray continues to show some atelectasis in upper lung kaba, continues to have a small right-sided pneumothorax continues to have a small air leak. Patient is improving with demeclocycline and her sodium is improving. She is also improving with Mucinex, able to cough up some mucous plugs. Hence no immediate plans to perform bronchoscopy but that's to be considered if the patient doesn't did not show improvement. WBC count is 9.7 hemoglobin is 10.2 sodium 129 potassium 4.1 renal profile is normal. Progress note dated 08/23/2023. This is a 57-year-old female who was admitted on August 19, for a right upper lobectomy, secondary to lung cancer, which was performed on August 19. Currently, she is on 4 L of oxygen, and not receiving any IV fluids. The patient's chest x-rays continue to so infiltrate, likely in the RML, since there is no right upper lobe anymore. Anyway, cardiothoracic surgery would like me to do a bronchoscopy, and clearing out any secretions in the lung, which may be attributing to her abnormality. The patient is congested in the chest, and is coughing up some phlegm. White count 9.5, hemoglobin 10.3, hematocrit 30.9, the platelet count 287,000. Sodium 128, potassium 4.1, chloride 93, CO2 30, BUN 8, creatinine 0.63. Chest x-ray shows a small right apical pneumothorax, and consolidation, likely in the RML, since there is no right upper lobe. Progress note dated 08/24/2023. 57-year-old female was admitted to the hospital on August 19, for right upper lobectomy, secondary to lung cancer. Surgery was performed on August 19. Currently, she is resting comfortably in the intensive care unit. She's in room 256. She continues on oxygen at 4 L. She's not receiving any IV fluids. Yesterday, we did bronchoscopy, and BAL, to the right middle lobe. The patient does not have a right upper lobe. The BAL was sent for cytology, and microbiology. Currently, she is doing better, and in my opinion, her chest x- ray shows improvement in the infiltrate, in the right middle lobe. Labs today include a white count of 8, hemoglobin 10.5, hematocrit 30.8, and a normal platelet count. Sodium 132, potassium 3.7, chlorides 92, CO2 34, with a normal BUN and creatinine. If fluid analysis shows significant fluid be hazy, with 73% PMNs. In my opinion, the infiltrate in the right middle lobe, is improved, and the patient has a very small right apical pneumothorax. Chest tube has been removed. Progress note dated 08/25/2023. 57-year-old female who is admitted to the hospital on August 19, status post right upper lobectomy, secondary to lung cancer. She ended up having non-small cell lung cancer, with neuroendocrine features. All the lymph nodes, that were sampled, were negative. She is seen today in room 352. She is currently on 4 L of oxygen. No IV fluids. The patient is hoping to be discharged in the near future. White count 8.7, hemoglobin 10.6, hematocrit 32.5, and platelet count 376,000. Sodium 132, potassium 4.1, chlorides 92, CO2 34, BUN 11, and creatinine 0.62. Chest x-ray is interpreted as being stable by the radiologist. Objective - Vital Signs Vital signs: Vital Signs Temp 97.8 F 08/25/23 12:00 Pulse 91 08/25/23 12:00 Resp 18 08/25/23 12:00 BP 116/68 08/25/23 12:00 Pulse Ox 96 08/25/23 12:00 FiO2 Intake & Output 08/24/23 08/25/23 08/25/23 18:59 06:59 18:59 Intake Total 500 Output Total 500 Balance 0 Intake: Oral 500 Output: Urine 500 Other: Voiding Method Toilet Toilet Toilet ABP, PAP, CO, CI - Last Documented Arterial Blood Pressure 127/57 - Exam No acute distress, oriented 3. The patient's currently on 4 L. Saturations are 96 %. No audible wheezing. HEENT examination is grossly unremarkable. Mucous membranes are moist. No oral lesions. Neck supple. Full range of motion. No adenopathy thyromegaly or neck vein distention. Cardiovascular examination reveals regular rhythm rate. S1-S2 normal. No S3 or S4. No discernible murmur noted. Heart rate 91 bpm. Lungs reveal coarse bilateral rhonchi. Minimal crackles. No wheezes. Breath sounds equal bilaterally. Saturations are 96% on 4 L. Abdomen soft bowel sounds are heard. No masses or tenderness. Extremities are intact. No cyanosis clubbing or edema. Skin is without rash or lesion. Neurologic examination is brief but nonfocal. - Labs CBC & Chem 7: 08/25/23 07:21 08/25/23 07:21 Labs: Abnormal Lab Results - Last 24 Hours (Table) 08/25/23 08/25/23 Range/Units 07:21 07:21 RBC 3.58 L (3.80-5.40) m/uL Hgb 10.6 L (11.4-16.0) gm/dL Hct 32.5 L (34.0-46.0) % Sodium 132 L (137-145) mmol/L Chloride 92 L (98-107) mmol/L Carbon Dioxide 34 H (22-30) mmol/L Calcium 8.3 L (8.4-10.2) mg/dL Microbiology - Last 24 Hours (Table) 08/23/23 11:00 Gram Stain - Preliminary Bronchoalviolar Lavage - Right Assessment and Plan Assessment: Status post right upper lobectomy, for non-small cell lung cancer, postop day #6. Status post mediastinal lymph node dissection, postop day #6. All nodes negative. Status post bronchoscopy, 08/23/2023, with BAL to the right middle lobe. Postoperative right apical pneumothorax, expected. Hyponatremia, secondary to SIADH. Mild COPD with an FEV1 that's 87% of predicted. Dyslipidemia. Chronic cough. DJD. Tobacco dependence syndrome. Endobronchial mucus plugging and atelectasis, right lung. Plan: Plan dated 08/23/2023. The patient will undergo a bronchoscopy this morning. In addition, we recommend continued use of incentive spirometer, as well as a flutter valve, that will be ordered for the patient. Currently, the patient's on 4 L. She will have a chest x-ray after bronchoscopy. Additional recommendations and suggestions are forthcoming. Today is postop day #4, status post robotically assisted right upper lobectomy, and mediastinal lymph node dissection for lung cancer, non- small cell type. Prognosis is guarded. We will continue to follow. Plan dated 08/24/2023. The patient is seen today in room 256. She remains on 4 L of oxygen. No IV fluids. Yesterday, she had bronchoscopy and therapeutic lavage, with BAL to, to the right middle lobe. The fluid was sent for analysis including microbiology. Clinically, she appears relatively stable. In my opinion, the chest x-rays improved. Labs, x-rays, medications are reviewed. No additional recommendations are made. Prognosis is guarded. Plan dated 08/25/2023. The patient is stable. The patient will see us back in the office, after discharge. She will see the doctor that did her pulmonary consultation. The patient may have to be discharged home on oxygen therapy. She probably will not need it long-term. The results of the surgery were explained to her. Labs, x- rays, and medications are reviewed. Additional recommendations and suggestions are forthcoming. Prognosis is guarded. Time with Patient: Less than 30
[2023-08-25 14:06] VITALS: BMI 31.9
--- NOTE | 2023-08-25 14:35 | P.PN ---
Subjective Progress Note Date: 08/25/23 Principal diagnosis: Right upper lobe non-small cell lung cancer with neuroendocrine features. Past medical history significant for COPD with preoperative FEV1 87% of predicted va lue and a DLCO 55% of predicted value, asthma, diverticulitis, hyperlipidemia, GERD, osteoarthritis, and chronic ongoing tobacco dependence, recently quit smoking. POD #6 bronchoscopy, right robotic assisted thoracoscopic surgery with right upper lobectomy, mediastinal lymph node dissection, intercostal nerve block 3 levels. Patient was seen and examined in follow-up today 08/25/2023 at her bedside on the third floor cardiac stepdown unit. She is currently sitting up in bed, is awake, alert, oriented 3 and is in no acute apparent distress. She denies any complaints of pain or shortness of breath at this time. Reports she does have some episodes of shortness of breath with activity. Oxygen saturations are 96% on 4 L nasal cannula and she is achieving 1000 mL on her incentive spirometry encouragement. Surgical pathology results are back and shows poorly differentiated non-small cell carcinoma with neuroendocrine differentiation, consistent with large cell neuroendocrine carcinoma. The results of the pathology were discussed with the patient by Dr. Espino. Remote telemetry sh owing normal sinus rhythm heart rate 92 BPM. Chest x-ray laboratory results have been reviewed. Patient has been up ambulating in the hallway with standby assistance from nursing therapist after tolerating well. Discharge planning is in place. Objective - Vital Signs Vital signs: Vital Signs Temp 97.8 F 08/25/23 12:00 Pulse 91 08/25/23 12:00 Resp 18 08/25/23 12:00 BP 116/68 08/25/23 12:00 Pulse Ox 96 08/25/23 12:00 FiO2 Intake & Output 08/24/23 08/25/23 08/25/23 18:59 06:59 18:59 Intake Total 500 Output Total 500 Balance 0 Weight 79.3 kg Intake: Oral 500 Output: Urine 500 Other: Voiding Method Toilet Toilet Toilet ABP, PAP, CO, CI - Last Documented Arterial Blood Pressure 127/57 - Exam CONSTITUTIONAL: Appears comfortable, cooperative, no acute distress RESPIRATORY: Lungs sounds scattered expiratory wheezes throughout, diminished to her bilateral bases, right greater than left. Respirations are symmetrical, nonlabored. Currently on 4 L nasal cannula with oxygen saturation 96%. Able to achieve 750-1000 mL on incentive spirometry. Strong loose cough, with scant brown tinged sputum. CARDIOVASCULAR: S1, S2 present. Regular rate and rhythm, sinus rhythm on telemetry. Palpable peripheral pulses bilaterally. No edema present. No calf pain or tenderness noted. SCDs present. GASTROINTESTINAL: Abdomen soft, nontender, nondistended. Active bowel sounds present 4 quadrants. Tolerating diet. GENITOURINARY: Continues to void INTEGUMENTARY: Skin is warm and dry with evidence of good perfusion. Right chest thoracic incisions well approximated and covered with dry intact dressing. NEUROLOGIC: Cranial nerves II through XII intact. No focal deficits. MUSKULOSKELETAL: Able to move all extremities, strength equal bilaterally, gait normal. PSYCHIATRIC: Alert and oriented to person place and time, appropriate affect, intact judgment and insight. - Allied health notes Allied health notes reviewed: nursing - Labs CBC & Chem 7: 08/25/23 07:21 08/25/23 07:21 Labs: Abnormal Lab Results - Last 24 Hours (Table) 08/25/23 08/25/23 Range/Units 07:21 07:21 RBC 3.58 L (3.80-5.40) m/uL Hgb 10.6 L (11.4-16.0) gm/dL Hct 32.5 L (34.0-46.0) % Sodium 132 L (137-145) mmol/L Chloride 92 L (98-107) mmol/L Carbon Dioxide 34 H (22-30) mmol/L Calcium 8.3 L (8.4-10.2) mg/dL Microbiology - Last 24 Hours (Table) 08/23/23 11:00 Gram Stain - Preliminary Bronchoalviolar Lavage - Right - Imaging and Cardiology Chest x-ray: report reviewed, image reviewed Assessment and Plan Assessment: Right upper lobe non-small cell lung cancer with neuroendocrine features, status post bronchoscopy, right robotic assisted thoracoscopic surgery with right upper lobectomy, mediastinal lymph node dissection and intercostal nerve block 3 levels COPD with a preoperative FEV1 87% of predicted value and a DLCO 55% of predicted value Asthma Diverticulitis Hyperlipidemia GERD Osteoarthritis Chronic tobacco dependence, recently quit smoking in June 2023 Chest x-ray, showing atelectasis right mid lung Plan: Continue Mucinex 1200 mg by mouth twice a day as well as Mucomyst 200 mg inhalation 3 times a day. Chest physiotherapy every 4 hours. Wean O2 as tolerated. Encourage incentive spirometry is 10 times every hour while awake. Bronchodilators/steroids per pulmonology Will monitor daily chest x-rays and labs. Continue to encourage Flutter valve ordered by pulmonary critical care service. Increase activity as tolerated. Out of bed for all meals. GI/DVT prophylaxis. Pain control with current medication regimen. Pathology results discussed with the patient by Dr. Espino. Discharge planning is in place. More recommendations to follow based on patient's clinical course. Time with Patient: Greater than 30
[2023-08-26] MEDS: PANTOPRAZOLE 40 MG TABLET PO SCH ×2 (06:32→16:35)
[2023-08-26] MEDS: HEPARIN SODIUM,PORCINE 5,000 UNIT/ML 1 ML VIAL SQ SCH ×3 (06:32→22:07)
[2023-08-26] MEDS: ACETAMINOPHEN TAB 500 MG TAB PO PRN ×2 (06:34→19:52)
[2023-08-26 07:48] LABS: HCT 32.5 % (34.0-46.0); MCHC 33.9 g/dL (31.0-37.0); MCV 88.4 fL (80.0-100.0); Mean Platelet Volume 6.8; Platelet Count 421 k/uL (150-450); RBC 3.67 m/uL (3.80-5.40); RDW 12.5 % (11.5-15.5); WBC 10.4 k/uL (3.8-10.6)
--- NOTE | 2023-08-26 07:55 | XR ---
EXAMINATION TYPE: XR chest 2V DATE OF EXAM: 08/26/2023 7:45 AM CLINICAL INDICATION:Female, 57 years old with history of Postoperative right upper lobectomy; COMPARISON: Chest radiographs from 08/25/2023. TECHNIQUE: XR chest 2V Frontal and lateral views of the chest. FINDINGS: Lungs/Pleura: Moderate to large right pneumothorax with small right pleural effusion. No left pneumot horax or pleural fusion. Increased lucency in the lung apices with flattening of the diaphragm on the left. Pulmonary vascularity: Unremarkable. Heart/mediastinum: Cardiomediastinal silhouette is unremarkable. Musculoskeletal: No acute osseous pathology. IMPRESSION: 1. Increase in right-sided pneumothorax with small hydrothorax component. There is right-sided subcu taneous emphysema. 2. COPD changes.
[2023-08-26] MEDS: FORMOTEROL FUMARATE 20 MCG/2 ML NEBU INHALATION SCH ×2 (08:04→22:00)
[2023-08-26] MEDS: IPRATROPIUM-ALBUTEROL 3 ML NEB IH SCH ×4 (08:04→22:00)
[2023-08-26] MEDS: ACETYLCYSTEINE 800 MG/4 ML VIAL INHALATION SCH ×3 (08:04→22:00)
[2023-08-26 08:10] LABS: African American GFR (CKD) >90 (>60 ml/min/1.73 sqM); Anion Gap 8 mmol/L; Blood Urea Nitrogen 11 mg/dL (7-17); Calcium 8.4 mg/dL (8.4-10.2); Carbon Dioxide 32 mmol/L (22-30); Chloride 90 mmol/L (98-107); Glucose 109 mg/dL (74-99); Magnesium 1.8 mg/dL (1.6-2.3); Non-African American GFR(CKD) >90 (>60 ml/min/1.73 sqM); Phosphorus 4.8 mg/dL (2.5-4.5); Potassium 4.5 mmol/L (3.5-5.1); Sodium 130 mmol/L (137-145)
[2023-08-26] MEDS: guaiFENesin 600 MG TABLET.ER PO SCH ×2 (08:19→21:19)
[2023-08-26] MEDS: DEMECLOCYCLINE 150 MG TAB PO SCH ×2 (08:19→21:19)
[2023-08-26] MEDS: POTASSIUM CHLORIDE ER 10 MEQ TAB.ER.PRT PO SCH (08:19)
[2023-08-26] MEDS: ATORVASTATIN 40 MG TAB PO SCH (08:19)
[2023-08-26] MEDS: traMADol 50 MG TAB PO SCH ×4 (08:19→22:07)
[2023-08-26] MEDS: FUROSEMIDE 10 MG/ML 2 ML VIAL IV SCH (08:20)
--- NOTE | 2023-08-26 10:19 | CT ---
EXAMINATION TYPE: CT chest wo con DATE OF EXAM: 08/26/2023 COMPARISON: Preoperative study of 07/08/2023 HISTORY: RT pneumothorax CT DLP: 273.[address] of the chest was performed with lung and mediastinal window settings submitted. The la ck of contrast limits evaluation of the vascular, mediastinal and parenchymal structures including th e upper abdomen. LUNGS: There are changes of right upper lobectomy. There is large right-sided pneumothorax with hydro pneumothorax component. Pneumothorax is estimated at 50%. There is no evidence of mediastinal shift. Large area of airspace consolidation seen superiorly and anteriorly. There is evidence of subcutaneou s air along the right chest wall extending posteriorly, anteriorly and into the neck and mediastinum. MEDIASTINUM/JOSIE: Thoracic aorta is of normal caliber with limited evaluation given lack of contrast . The heart is not enlarged. No evidence for mediastinal mass. No lymph nodes greater than 1cm. UPPER ABDOMEN: No significant abnormality is seen. OTHER: No significant other abnormality. IMPRESSION: 1. Postoperative changes of right upper lobectomy with 50% hydropneumothorax identified on the right . Large area of airspace consolidation identified anteriorly and superiorly with internal air-fluid l evels seen as well. No evidence of mediastinal shift. Pneumomediastinum extending into the neck as we ll as subcutaneous emphysema along the right chest.
--- NOTE | 2023-08-26 12:11 | P.PN ---
Subjective Progress Note Date: 08/26/23 Principal diagnosis: Right upper lobe non-small cell lung cancer with neuroendocrine features. Past medical history significant for COPD with preoperative FEV1 87% of predicted va lue and a DLCO 55% of predicted value, asthma, diverticulitis, hyperlipidemia, GERD, osteoarthritis, and chronic ongoing tobacco dependence, recently quit smoking. POD #7 bronchoscopy, right robotic assisted thoracoscopic surgery with right upper lobectomy, mediastinal lymph node dissection, intercostal nerve block 3 levels. The patient was seen and examined in follow-up today 08/26/2023 at her bedside on the third floor cardiac stepdown unit. Currently she is lying in bed, is awake, alert, oriented 3 and is in no acute apparent distress. Oxygen saturation are 96% on 3 L nasal cannula and she is achieving 1000 mL on her incentive spirometry. Chest x-ray completed this morning shows a right-sided pneumothorax estimating around 30-40%. Bedside telemetry showing normal sinus rhythm heart rate 89 BPM. Patient reports she has been up ambulating in the cardiac stepdown unit hallway and tolerating well. Laboratory chest x-ray results reviewed. Objective - Vital Signs Vital signs: Vital Signs Temp 98.0 F 08/26/23 08:29 Pulse 96 08/26/23 11:13 Resp 19 08/26/23 08:29 BP 128/84 08/26/23 08:29 Pulse Ox 96 08/26/23 08:29 FiO2 Intake & Output 08/25/23 08/26/23 08/26/23 18:59 06:59 18:59 Intake Total 0 Output Total 240 Balance -240 Weight 79.3 kg 78 kg Intake: Oral 0 Output: Urine 240 Other: Voiding Method Toilet Toilet Toilet # Voids 1 ABP, PAP, CO, CI - Last Documented Arterial Blood Pressure 127/57 - Exam CONSTITUTIONAL: Appears comfortable, cooperative, no acute distress RESPIRATORY: Lungs sounds scattered expiratory wheezes throughout, diminished to her bilateral bases, right greater than left. Respirations are symmetrical, nonlabored. Currently on 4 L nasal cannula with oxygen saturation 96%. Able to achieve 1000 mL on incentive spirometry. Strong loose cough, with scant brown tinged sputum. CARDIOVASCULAR: S1, S2 present. Regular rate and rhythm, sinus rhythm on telem etry. Palpable peripheral pulses bilaterally. No edema present. No calf pain or tenderness noted. SCDs present. GASTROINTESTINAL: Abdomen soft, nontender, nondistended. Active bowel sounds present 4 quadrants. Tolerating diet. GENITOURINARY: Continues to void. INTEGUMENTARY: Skin is warm and dry with evidence of good perfusion. Right chest thoracic incisions well approximated and covered with dry intact dressing. Small amount of scattered subcutaneous emphysema to her right chest. NEUROLOGIC: Cranial nerves II through XII intact. No focal deficits. MUSKULOSKELETAL: Able to move all extremities, strength equal bilaterally, gait normal. PSYCHIATRIC: Alert and oriented to person place and time, appropriate affect, intact judgment and insight. - Allied health notes Allied health notes reviewed: nursing - Labs CBC & Chem 7: 08/26/23 07:17 08/26/23 07:17 Labs: Abnormal Lab Results - Last 24 Hours (Table) 08/26/23 08/26/23 Range/Units 07:17 07:17 RBC 3.67 L (3.80-5.40) m/uL Hgb 11.0 L (11.4-16.0) gm/dL Hct 32.5 L (34.0-46.0) % Sodium 130 L (137-145) mmol/L Chloride 90 L (98-107) mmol/L Carbon Dioxide 32 H (22-30) mmol/L Glucose 109 H (74-99) mg/dL Phosphorus 4.8 H (2.5-4.5) mg/dL Microbiology - Last 24 Hours (Table) 08/23/23 11:00 Acid Fast Bacilli Smear - Preliminary Bronchoalviolar Lavage - Right 08/23/23 11:00 Gram Stain - Preliminary Bronchoalviolar Lavage - Right - Imaging and Cardiology Chest x-ray: report reviewed, image reviewed Assessment and Plan Assessment: Right upper lobe non-small cell lung cancer with neuroendocrine features, status post bronchoscopy, right robotic assisted thoracoscopic surgery with right upper lobectomy, mediastinal lymph node dissection and intercostal nerve block 3 levels COPD with a preoperative FEV1 87% of predicted value and a DLCO 55% of predicted value Asthma Diverticulitis Hyperlipidemia GERD Osteoarthritis Chronic tobacco dependence, recently quit smoking in June 2023 Chest x-ray, showing atelectasis right mid lung Right-sided pneumothorax on chest x-ray Plan: We will obtain a computed tomography scan of the chest, interventional radiology consulted for placement of right pleural chest tube. Continue Mucinex 1200 mg by mouth twice a day as well as Mucomyst 200 mg inhalation 3 times a day. Chest physiotherapy every 4 hours. Wean O2 as tolerated. Encourage incentive spirometry is 10 times every hour while awake. Bronchodilators/steroids per pulmonology Will monitor daily chest x-rays and labs. Continue to encourage Flutter valve ordered by pulmonary critical care service. Increase activity as tolerated. Out of bed for all meals. GI/DVT prophylaxis. Pain control with current medication regimen. Pathology results discussed with the patient by Dr. Espino yesterday 08/25/2023. More recommendations to follow based on patient's clinical course. Time with Patient: Greater than 30
--- NOTE | 2023-08-26 12:44 | P.PN ---
Subjective Progress Note Date: 08/26/23 Principal diagnosis: Status post right upper lobectomy. This is a 57-year-old female, known history of tobacco dependence syndrome, patient saw me in the office for chronic cough. Chest x-ray in the office showed right upper lobe mass further workup including CT of the chest and PET scan showed 5.6 cm mass in the right upper lobe with hypermetabolic activity noted on the PET scan with SUV of 9.88, no evidence at the time of any further metastatic disease. 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 Patient at that time had mostly symptoms of chronic cough but no other constitutional symptoms. Patient was referred to Dr. Espino, and she underwent right robotic-assisted thoracoscopic surgery with right upper lobectomy and mediastinal lymph node dissection. Postoperatively patient was sent to the ICU she was extubated in the recovery room, and I was asked to see her on consultation this morning. Patient seems to be doing well, relatively asymptomatic, chest x-ray showed a small right-sided pneumothorax, chest tube remains in place, and she has some haziness in the right upper lung kaba. Chest tube is connected to suction and that being addressed by surgery on the case labs this morning showed a slightly low sodium of 129 her WCL is 10.3 hem oglobin 11.7, patient is on 2 L nasal cannula with O2 sat of 97% and she is hemodynamically stable Patient was reevaluated today on 08/21/2023, patient remains in the ICU as an overflow, she seems to be comfortable, not in any distress, she is on 4 L nasal cannula. Chest x-ray continues to show pneumothorax of the right apex, and now she is developing more atelectatic changes in the right upper lung field. Patient apparently has some mucus plugging and she is having difficulty clearing her mucous plugs and secretions. She will be placed on Mucomyst, he is receiving updrafts, and she was instructed on aggressive use of her incentive spirometer. She is also on updrafts. Patient developed also hyponatremia, did not improve much with fluids yesterday, hence I believe it is most likely SIADH picture and now I'm recommending fluid restriction and demeclocycline Reevaluated today 08/22/2023, patient remains in the ICU, she is basically an overflow, doing quite well, she is not in any distress. She is on 3 L nasal cannula, her chest x-ray continues to show some atelectasis in upper lung kaba, continues to have a small right-sided pneumothorax continues to have a small air leak. Patient is improving with demeclocycline and her sodium is improving. She is also improving with Mucinex, able to cough up some mucous plugs. Hence no immediate plans to perform bronchoscopy but that's to be considered if the patient doesn't did not show improvement. WBC count is 9.7 hemoglobin is 10.2 sodium 129 potassium 4.1 renal profile is normal. Progress note dated 08/23/2023. This is a 57-year-old female who was admitted on August 19, for a right upper lobectomy, secondary to lung cancer, which was performed on August 19. Currently, she is on 4 L of oxygen, and not receiving any IV fluids. The patient's chest x-rays continue to so infiltrate, likely in the RML, since there is no right upper lobe anymore. Anyway, cardiothoracic surgery would like me to do a bronchoscopy, and clearing out any secretions in the lung, which may be attributing to her abnormality. The patient is congested in the chest, and is coughing up some phlegm. White count 9.5, hemoglobin 10.3, hematocrit 30.9, the platelet count 287,000. Sodium 128, potassium 4.1, chloride 93, CO2 30, BUN 8, creatinine 0.63. Chest x-ray shows a small right apical pneumothorax, and consolidation, likely in the RML, since there is no right upper lobe. Progress note dated 08/24/2023. 57-year-old female was admitted to the hospital on August 19, for right upper lobectomy, secondary to lung cancer. Surgery was performed on August 19. Currently, she is resting comfortably in the intensive care unit. She's in room 256. She continues on oxygen at 4 L. She's not receiving any IV fluids. Yesterday, we did bronchoscopy, and BAL, to the right middle lobe. The patient does not have a right upper lobe. The BAL was sent for cytology, and microbiology. Currently, she is doing better, and in my opinion, her chest x- ray shows improvement in the infiltrate, in the right middle lobe. Labs today include a white count of 8, hemoglobin 10.5, hematocrit 30.8, and a normal platelet count. Sodium 132, potassium 3.7, chlorides 92, CO2 34, with a normal BUN and creatinine. If fluid analysis shows significant fluid be hazy, with 73% PMNs. In my opinion, the infiltrate in the right middle lobe, is improved, and the patient has a very small right apical pneumothorax. Chest tube has been removed. Progress note dated 08/25/2023. 57-year-old female who is admitted to the hospital on August 19, status post right upper lobectomy, secondary to lung cancer. She ended up having non-small cell lung cancer, with neuroendocrine features. All the lymph nodes, that were sampled, were negative. She is seen today in room 352. She is currently on 4 L of oxygen. No IV fluids. The patient is hoping to be discharged in the near future. White count 8.7, hemoglobin 10.6, hematocrit 32.5, and platelet count 376,000. Sodium 132, potassium 4.1, chlorides 92, CO2 34, BUN 11, and creatinine 0.62. Chest x-ray is interpreted as being stable by the radiologist. Progress note dated 08/26/2023. The patient is seen today in room 352. She continues on 4 L of oxygen. No IV fluids. The patient was admitted to the hospital on August 19, and underwent a right upper lobectomy, secondary to non-small cell lung cancer. The patient's lymph nodes that were sampled, all negative for malignancy. Labs today include a white count 10.4, hemoglobin 11, hematocrit 32.5, within normal platelet count. Sodium 1:30, potassium 4.5, chlorides 90, CO2 32, BUN 11, creatinine 0.57. The patient's chest x-ray today shows an increase in the right-sided pneumothorax. There is some right-sided subcutaneous emphysema. Computed tomography scan shows a 50% hydropneumothorax on the right side, with a large area of airspace consolidation. There is pneumomediastinum, and subcutaneous emphysema. Objective - Vital Signs Vital signs: Vital Signs Temp 96.6 F L 08/26/23 12:35 Pulse 84 08/26/23 12:35 Resp 19 08/26/23 12:35 BP 158/90 08/26/23 12:35 Pulse Ox 96 08/26/23 08:29 FiO2 Intake & Output 08/25/23 08/26/23 08/26/23 18:59 06:59 18:59 Intake Total 0 Output Total 240 Balance -240 Weight 79.3 kg 78 kg Intake: Oral 0 Output: Urine 240 Other: Voiding Method Toilet Toilet Toilet # Voids 1 ABP, PAP, CO, CI - Last Documented Arterial Blood Pressure 127/57 - Exam No acute distress, oriented 3. The patient's currently on 4 L. Saturations are 96 %. No audible wheezing. HEENT examination is grossly unremarkable. Mucous membranes are moist. No oral lesions. Neck supple. Full range of motion. No adenopathy thyromegaly or neck vein distention. Cardiovascular examination reveals regular rhythm rate. S1-S2 normal. No S3 or S4. No discernible murmur noted. Heart rate 96 bpm. Subcutaneous emphysema is noted. Lungs reveal coarse bilateral rhonchi. Minimal crackles. No wheezes. Breath sounds equal bilaterally. Saturations are 96% on 4 L. Abdomen soft bowel sounds are heard. No masses or tenderness. Extremities are intact. No cyanosis clubbing or edema. Skin is without rash or lesion. Neurologic examination is brief but nonfocal. - Labs CBC & Chem 7: 08/26/23 07:17 08/26/23 07:17 Labs: Abnormal Lab Results - Last 24 Hours (Table) 08/26/23 08/26/23 Range/Units 07:17 07:17 RBC 3.67 L (3.80-5.40) m/uL Hgb 11.0 L (11.4-16.0) gm/dL Hct 32.5 L (34.0-46.0) % Sodium 130 L (137-145) mmol/L Chloride 90 L (98-107) mmol/L Carbon Dioxide 32 H (22-30) mmol/L Glucose 109 H (74-99) mg/dL Phosphorus 4.8 H (2.5-4.5) mg/dL Microbiology - Last 24 Hours (Table) 08/23/23 11:00 Gram Stain - Final Bronchoalviolar Lavage - Right Bronchial Washings Culture - Final 08/23/23 11:00 Acid Fast Bacilli Smear - Preliminary Bronchoalviolar Lavage - Right Assessment and Plan Assessment: Status post right upper lobectomy, for non-small cell lung cancer, postop day #7. Status post mediastinal lymph node dissection, postop day #7. All nodes negative. Status post bronchoscopy, 08/23/2023, with BAL to the right middle lobe. Postoperative right, 40% hydropneumothorax, with associated subcutaneous emphysema. Hyponatremia, secondary to SIADH. Mild COPD with an FEV1 that's 87% of predicted. Dyslipidemia. Chronic cough. DJD. Tobacco dependence syndrome. Endobronchial mucus plugging and atelectasis, right lung. Plan: Plan dated 08/23/2023. The patient will undergo a bronchoscopy this morning. In addition, we recommend continued use of incentive spirometer, as well as a flutter valve, that will be ordered for the patient. Currently, the patient's on 4 L. She will have a chest x-ray after bronchoscopy. Additional recommendations and suggestions are forthcoming. Today is postop day #4, status post robotically assisted right upper lobectomy, and mediastinal lymph node dissection for lung cancer, non- small cell type. Prognosis is guarded. We will continue to follow. Plan dated 08/24/2023. The patient is seen today in room 256. She remains on 4 L of oxygen. No IV fluids. Yesterday, she had bronchoscopy and therapeutic lavage, with BAL to, to the right middle lobe. The fluid was sent for analysis including microbiology. Clinically, she appears relatively stable. In my opinion, the chest x-rays improved. Labs, x-rays, medications are reviewed. No additional recommendations are made. Prognosis is guarded. Plan dated 08/25/2023. The patient is stable. The patient will see us back in the office, after discharge. She will see the doctor that did her pulmonary consultation. The patient may have to be discharged home on oxygen therapy. She probably will not need it long-term. The results of the surgery were explained to her. Labs, x- rays, and medications are reviewed. Additional recommendations and suggestions are forthcoming. Prognosis is guarded. Plan dated 08/26/2023. Unfortunately, the patient's right-sided pneumothorax is gotten quite large, estimated to be about 40%. It is a right-sided hydropneumothorax. There is also an area of consolidation. We will continue to follow make recommendations along the way. The patient continues on oxygen at 4 L. Labs, x-rays, and medications are reviewed. Prognosis is certainly guarded. Time with Patient: Less than 30
[2023-08-26 16:21] LABS: INR 0.9 (<1.2); Prothrombin Time 10.4 sec (10.0-12.5)
[2023-08-27] MEDS: PANTOPRAZOLE 40 MG TABLET PO SCH ×2 (06:38→16:16)
--- NOTE | 2023-08-27 08:51 | XR ---
EXAMINATION TYPE: XR chest 1V portable DATE OF EXAM: 08/27/2023 HISTORY: Shortness of breath. COMPARISON: 08/26/2023 TECHNIQUE: Single view of the chest is submitted. FINDINGS: 40-50% right-sided pneumothorax redemonstrated. There is increasing subcutaneous air throughout the r ight chest wall extending into the neck. Small hydropneumothorax component redemonstrated. Increased opacity right suprahilar region. The heart is stable. Hilar and mediastinal structures are within normal limits. Degenerative changes are seen of the dorsal spine. IMPRESSION: 1. 40-50% right-sided pneumothorax redemonstrated. There is increasing subcutaneous air throughout t he right chest wall extending into the neck. Small hydropneumothorax component redemonstrated. Increa sed opacity right suprahilar region.
[2023-08-27 09:19] LABS: African American GFR (CKD) >90 (>60 ml/min/1.73 sqM); Anion Gap 10 mmol/L; Blood Urea Nitrogen 13 mg/dL (7-17); Calcium 8.7 mg/dL (8.4-10.2); Carbon Dioxide 33 mmol/L (22-30); Chloride 90 mmol/L (98-107); Glucose 87 mg/dL (74-99); Non-African American GFR(CKD) >90 (>60 ml/min/1.73 sqM); Potassium 4.8 mmol/L (3.5-5.1); Sodium 133 mmol/L (137-145)
[2023-08-27 09:25] LABS: HCT 35.4 % (34.0-46.0); HGB 11.8 gm/dL (11.4-16.0); MCH 29.8 pg (25.0-35.0); MCHC 33.4 g/dL (31.0-37.0); MCV 89.3 fL (80.0-100.0); Mean Platelet Volume 7.3; Platelet Count 435 k/uL (150-450); RBC 3.96 m/uL (3.80-5.40); RDW 12.7 % (11.5-15.5)
[2023-08-27] MEDS: FORMOTEROL FUMARATE 20 MCG/2 ML NEBU INHALATION SCH ×2 (09:26→20:44)
[2023-08-27] MEDS: ACETYLCYSTEINE 800 MG/4 ML VIAL INHALATION SCH ×3 (09:26→20:44)
[2023-08-27] MEDS: IPRATROPIUM-ALBUTEROL 3 ML NEB IH SCH ×4 (09:26→20:44)
[2023-08-27] MEDS ORDERED: HYDROmorphone 0.5 MG/0.5 ML SYRINGE IVP STA (09:46)
--- NOTE | 2023-08-27 10:17 | CT ---
EXAMINATION TYPE: CT chest tube insertion DATE OF EXAM: 08/27/2023 COMPARISON: 08/26/2023 HISTORY: Post right upper lobe lobectomy CT DLP: 572 mGycm The procedure is discussed with the patient, the risks, complications, benefits and alternatives, wer e discussed and any questions were answered. Informed consent was obtained. The patient is placed p justin on the CT table, prepped and draped in the usual sterile fashion. Utilizing a 22-gauge Chiba needle access into the right pleural space was achieved with passage of an 0.018 guidewire. Conversion to a 0.035 system and serial dilation placement of a 8 [place] pigtail ca theter. All elements of maximal barrier technique were utilized. The patient remained stable throug hout the procedure with no immediate postprocedural complication. IMPRESSION: 1. Successful CT guided right chest tube insertion.
[2023-08-27] MEDS: traMADol 50 MG TAB PO SCH ×4 (10:55→21:59)
[2023-08-27] MEDS: ATORVASTATIN 40 MG TAB PO SCH (10:57)
[2023-08-27] MEDS: POTASSIUM CHLORIDE ER 10 MEQ TAB.ER.PRT PO SCH (10:57)
[2023-08-27] MEDS: DEMECLOCYCLINE 150 MG TAB PO SCH ×2 (10:58→21:59)
[2023-08-27] MEDS: guaiFENesin 600 MG TABLET.ER PO SCH ×2 (10:58→22:00)
[2023-08-27] MEDS: HEPARIN SODIUM,PORCINE 5,000 UNIT/ML 1 ML VIAL SQ SCH ×2 (11:00→16:16)
[2023-08-27] MEDS: FUROSEMIDE 10 MG/ML 2 ML VIAL IV SCH (11:08)
--- NOTE | 2023-08-27 13:47 | XR ---
EXAMINATION TYPE: XR chest 1V portable DATE OF EXAM: 08/27/2023 COMPARISON: 08/27/2023 HISTORY: Chest tube insertion TECHNIQUE: Single frontal view of the chest is obtained. FINDINGS: There is improved appearance of the chest with proximal 20% right-sided pneumothorax. The lower lung appears to demonstrate improved expansion relative to the prior exam. Pigtail catheter see n in the region. Left lung is clear. There is severe subcutaneous emphysema. Small amount of pneumomediastinum in the differential diagnosis. IMPRESSION: 1. Right-sided chest tube appears positioned with improved expansion of the right lower lung and redu leobardo size of pneumothorax.
--- NOTE | 2023-08-27 14:18 | P.PN ---
Subjective Progress Note Date: 08/27/23 Principal diagnosis: Status post right upper lobectomy. This is a 57-year-old female, known history of tobacco dependence syndrome, patient saw me in the office for chronic cough. Chest x-ray in the office showed right upper lobe mass further workup including CT of the chest and PET scan showed 5.6 cm mass in the right upper lobe with hypermetabolic activity noted on the PET scan with SUV of 9.88, no evidence at the time of any further metastatic disease. 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 Patient at that time had mostly symptoms of chronic cough but no other constitutional symptoms. Patient was referred to Dr. Espino, and she underwent right robotic-assisted thoracoscopic surgery with right upper lobectomy and mediastinal lymph node dissection. Postoperatively patient was sent to the ICU she was extubated in the recovery room, and I was asked to see her on consultation this morning. Patient seems to be doing well, relatively asymptomatic, chest x-ray showed a small right-sided pneumothorax, chest tube remains in place, and she has some haziness in the right upper lung kaba. Chest tube is connected to suction and that being addressed by surgery on the case labs this morning showed a slightly low sodium of 129 her WCL is 10.3 hem oglobin 11.7, patient is on 2 L nasal cannula with O2 sat of 97% and she is hemodynamically stable Patient was reevaluated today on 08/21/2023, patient remains in the ICU as an overflow, she seems to be comfortable, not in any distress, she is on 4 L nasal cannula. Chest x-ray continues to show pneumothorax of the right apex, and now she is developing more atelectatic changes in the right upper lung field. Patient apparently has some mucus plugging and she is having difficulty clearing her mucous plugs and secretions. She will be placed on Mucomyst, he is receiving updrafts, and she was instructed on aggressive use of her incentive spirometer. She is also on updrafts. Patient developed also hyponatremia, did not improve much with fluids yesterday, hence I believe it is most likely SIADH picture and now I'm recommending fluid restriction and demeclocycline Reevaluated today 08/22/2023, patient remains in the ICU, she is basically an overflow, doing quite well, she is not in any distress. She is on 3 L nasal cannula, her chest x-ray continues to show some atelectasis in upper lung kaba, continues to have a small right-sided pneumothorax continues to have a small air leak. Patient is improving with demeclocycline and her sodium is improving. She is also improving with Mucinex, able to cough up some mucous plugs. Hence no immediate plans to perform bronchoscopy but that's to be considered if the patient doesn't did not show improvement. WBC count is 9.7 hemoglobin is 10.2 sodium 129 potassium 4.1 renal profile is normal. Progress note dated 08/23/2023. This is a 57-year-old female who was admitted on August 19, for a right upper lobectomy, secondary to lung cancer, which was performed on August 19. Currently, she is on 4 L of oxygen, and not receiving any IV fluids. The patient's chest x-rays continue to so infiltrate, likely in the RML, since there is no right upper lobe anymore. Anyway, cardiothoracic surgery would like me to do a bronchoscopy, and clearing out any secretions in the lung, which may be attributing to her abnormality. The patient is congested in the chest, and is coughing up some phlegm. White count 9.5, hemoglobin 10.3, hematocrit 30.9, the platelet count 287,000. Sodium 128, potassium 4.1, chloride 93, CO2 30, BUN 8, creatinine 0.63. Chest x-ray shows a small right apical pneumothorax, and consolidation, likely in the RML, since there is no right upper lobe. Progress note dated 08/24/2023. 57-year-old female was admitted to the hospital on August 19, for right upper lobectomy, secondary to lung cancer. Surgery was performed on August 19. Currently, she is resting comfortably in the intensive care unit. She's in room 256. She continues on oxygen at 4 L. She's not receiving any IV fluids. Yesterday, we did bronchoscopy, and BAL, to the right middle lobe. The patient does not have a right upper lobe. The BAL was sent for cytology, and microbiology. Currently, she is doing better, and in my opinion, her chest x- ray shows improvement in the infiltrate, in the right middle lobe. Labs today include a white count of 8, hemoglobin 10.5, hematocrit 30.8, and a normal platelet count. Sodium 132, potassium 3.7, chlorides 92, CO2 34, with a normal BUN and creatinine. If fluid analysis shows significant fluid be hazy, with 73% PMNs. In my opinion, the infiltrate in the right middle lobe, is improved, and the patient has a very small right apical pneumothorax. Chest tube has been removed. Progress note dated 08/25/2023. 57-year-old female who is admitted to the hospital on August 19, status post right upper lobectomy, secondary to lung cancer. She ended up having non-small cell lung cancer, with neuroendocrine features. All the lymph nodes, that were sampled, were negative. She is seen today in room 352. She is currently on 4 L of oxygen. No IV fluids. The patient is hoping to be discharged in the near future. White count 8.7, hemoglobin 10.6, hematocrit 32.5, and platelet count 376,000. Sodium 132, potassium 4.1, chlorides 92, CO2 34, BUN 11, and creatinine 0.62. Chest x-ray is interpreted as being stable by the radiologist. Progress note dated 08/26/2023. The patient is seen today in room 352. She continues on 4 L of oxygen. No IV fluids. The patient was admitted to the hospital on August 19, and underwent a right upper lobectomy, secondary to non-small cell lung cancer. The patient's lymph nodes that were sampled, all negative for malignancy. Labs today include a white count 10.4, hemoglobin 11, hematocrit 32.5, within normal platelet count. Sodium 1:30, potassium 4.5, chlorides 90, CO2 32, BUN 11, creatinine 0.57. The patient's chest x-ray today shows an increase in the right-sided pneumothorax. There is some right-sided subcutaneous emphysema. Computed tomography scan shows a 50% hydropneumothorax on the right side, with a large area of airspace consolidation. There is pneumomediastinum, and subcutaneous emphysema. Progress note dated 08/27/2023. 57-year-old female seen in room 352. The patient is status post right upper lobectomy. She continues on oxygen at 2 L. Unfortunately, the patient developed a pneumothorax on the right, and a chest tube was placed by cardiothoracic surgery. She was admitted back on August 19, and underwent a right upper lobectomy, secondary to non-small cell lung cancer. All lymph nodes were negative. Currently, she is on 2 L as mentioned, no IV fluids. She does have a leak from the chest tube. White count 9, hemoglobin 11.8, hematocrit 35.4, and platelet count normal. Sodium 133, potassium 4.8, chlorides 90, CO2 33, BUN 13, creatinine 0.63. Chest x-ray shows a properly positioned right- sided chest tube, with expansion of the right lung, and a significant reduction in the size of the pneumothorax. Objective - Vital Signs Vital signs: Vital Signs Temp 97.2 F L 08/27/23 12:00 Pulse 80 08/27/23 12:42 Resp 18 08/27/23 12:42 BP 121/83 08/27/23 12:00 Pulse Ox 97 08/27/23 12:00 FiO2 Intake & Output 08/26/23 08/27/23 08/27/23 18:59 06:59 18:59 Intake Total 1020 540 480 Output Total 1040 1260 900 Balance -20 -720 -420 Intake: Oral 1020 540 480 Output: Urine 1040 1260 900 Other: Voiding Method Toilet Toilet Toilet # Voids 3 ABP, PAP, CO, CI - Last Documented Arterial Blood Pressure 127/57 - Exam No acute distress, oriented 3. The patient's currently on 2 L. Saturations are 97%. HEENT examination is grossly unremarkable. Mucous membranes are moist. No oral lesions. Neck supple. Full range of motion. No adenopathy thyromegaly or neck vein distention. Cardiovascular examination reveals regular rhythm rate. S1-S2 normal. No S3 or S4. No discernible murmur noted. Heart rate 90 bpm. Subcutaneous emphysema is noted. Lungs reveal coarse bilateral rhonchi. Minimal crackles. No wheezes. Breath sounds equal bilaterally. Saturations are 97% on 2 L. Abdomen soft bowel sounds are heard. No masses or tenderness. Extremities are intact. No cyanosis clubbing or edema. Skin is without rash or lesion. Neurologic examination is brief but nonfocal. - Labs CBC & Chem 7: 08/27/23 07:50 08/27/23 07:50 Labs: Abnormal Lab Results - Last 24 Hours (Table) 08/27/23 Range/Units 07:50 Sodium 133 L (137-145) mmol/L Chloride 90 L (98-107) mmol/L Carbon Dioxide 33 H (22-30) mmol/L Microbiology - Last 24 Hours (Table) 08/23/23 11:00 Gram Stain - Final Bronchoalviolar Lavage - Right Bronchial Washings Culture - Final Assessment and Plan Assessment: Status post right upper lobectomy, for non-small cell lung cancer, postop day #8. Status post mediastinal lymph node dissection, postop day #8. All nodes negative. Status post bronchoscopy, 08/23/2023, with BAL to the right middle lobe. Postoperative right, 40% hydropneumothorax, with associated subcutaneous emphysema. Hyponatremia, secondary to SIADH. Mild COPD with an FEV1 that's 87% of predicted. Dyslipidemia. Chronic cough. DJD. Tobacco dependence syndrome. Endobronchial mucus plugging and atelectasis, right lung. Plan: Plan dated 08/23/2023. The patient will undergo a bronchoscopy this morning. In addition, we recommend continued use of incentive spirometer, as well as a flutter valve, that will be ordered for the patient. Currently, the patient's on 4 L. She will have a chest x-ray after bronchoscopy. Additional recommendations and suggestions are forthcoming. Today is postop day #4, status post robotically assisted right upper lobectomy, and mediastinal lymph node dissection for lung cancer, non- small cell type. Prognosis is guarded. We will continue to follow. Plan dated 08/24/2023. The patient is seen today in room 256. She remains on 4 L of oxygen. No IV fluids. Yesterday, she had bronchoscopy and therapeutic lavage, with BAL to, to the right middle lobe. The fluid was sent for analysis including microbiology. Clinically, she appears relatively stable. In my opinion, the chest x-rays improved. Labs, x-rays, medications are reviewed. No additional recommendation s are made. Prognosis is guarded. Plan dated 08/25/2023. The patient is stable. The patient will see us back in the office, after discharge. She will see the doctor that did her pulmonary consultation. The patient may have to be discharged home on oxygen therapy. She probably will not need it long-term. The results of the surgery were explained to her. Labs, x- rays, and medications are reviewed. Additional recommendations and suggestions are forthcoming. Prognosis is guarded. Plan dated 08/26/2023. Unfortunately, the patient's right-sided pneumothorax is gotten quite large, estimated to be about 40%. It is a right-sided hydropneumothorax. There is also an area of consolidation. We will continue to follow make recommendations along the way. The patient continues on oxygen at 4 L. Labs, x-rays, and medications are reviewed. Prognosis is certainly guarded. Plan dated 08/27/2023. The patient seen in room 352. She continues on oxygen at 2 L. No IV fluids. A chest tube was placed by cardiothoracic surgery. The pneumothorax seems to be reduced in size. Follow, and make recommendations along the way. The patient is not particularly symptomatic. Prognosis is guarded. The patient is now been in the hospital for 8 days. Time with Patient: Less than 30
--- NOTE | 2023-08-27 15:27 | P.PN ---
Subjective Progress Note Date: 08/27/23 Principal diagnosis: Right upper lobe non-small cell lung cancer with neuroendocrine features. Past medical history significant for COPD with preoperative FEV1 87% of predicted va lue and a DLCO 55% of predicted value, asthma, diverticulitis, hyperlipidemia, GERD, osteoarthritis, and chronic ongoing tobacco dependence, recently quit smoking. POD #8 bronchoscopy, right robotic assisted thoracoscopic surgery with right upper lobectomy, mediastinal lymph node dissection, intercostal nerve block 3 levels. The patient was seen and examined in follow-up today 08/27/2023 at her bedside on the third for cardiac stepdown unit. The patient is currently lying in bed, is awake, alert, oriented 3 and is in no acute apparent distress. Patient chest x-ray this morning demonstrates a right-sided pneumothorax, and she is scheduled to have a chest tube placed by interventional radiology today. Pathology results were discussed yesterday with the patient by Dr. Espino. Oxygen sa turations are 98% on 4 L nasal cannula, and she is achieving 1000 mL on her incentive spirometry with encouragement. She does have some subcu emphysema present to her right chest, right upper arm, and right neck. Remote telemetry is showing normal sinus rhythm heart rate 80 BPM. She denies any complaints of pain or shortness of breath at this time. Laboratory and chest x-ray results reviewed. Objective - Vital Signs Vital signs: Vital Signs Temp 97.2 F L 08/27/23 12:00 Pulse 80 08/27/23 12:42 Resp 18 08/27/23 12:42 BP 121/83 08/27/23 12:00 Pulse Ox 97 08/27/23 12:00 FiO2 Intake & Output 08/26/23 08/27/23 08/27/23 18:59 06:59 18:59 Intake Total 1020 540 480 Output Total 1040 1260 900 Balance -20 -720 -420 Intake: Oral 1020 540 480 Output: Urine 1040 1260 900 Other: Voiding Method Toilet Toilet Toilet # Voids 3 ABP, PAP, CO, CI - Last Documented Arterial Blood Pressure 127/57 - Exam CONSTITUTIONAL: Appears comfortable, cooperative, no acute distress RESPIRATORY: Lungs sounds scattered expiratory wheezes throughout, diminished to her bilateral bases, right greater than left. Respirations are symmetrical, nonlabored. Currently on 4 L nasal cannula with oxygen saturation 98%. Able to achieve 1000 mL on incentive spirometry. Strong cough. CARDIOVASCULAR: S1, S2 present. Regular rate and rhythm, sinus rhythm on telemetry. Palpable peripheral pulses bilaterally. No edema present. No calf pain or tenderness noted. SCDs present. GASTROINTESTINAL: Abdomen soft, nontender, nondistended. Active bowel sounds present 4 quadrants. Tolerating diet. GENITOURINARY: Continues to void. INTEGUMENTARY: Skin is warm and dry with evidence of good perfusion. Right chest thoracic incisions well approximated and covered with dry intact dressing. Small amount of scattered subcutaneous emphysema to her right chest, right arm and neck. NEUROLOGIC: Cranial nerves II through XII intact. No focal deficits. MUSKULOSKELETAL: Able to move all extremities, strength equal bilaterally, gait normal. PSYCHIATRIC: Alert and oriented to person place and time, appropriate affect, intact judgment and insight. - Allied health notes Allied health notes reviewed: nursing - Labs CBC & Chem 7: 08/27/23 07:50 08/27/23 07:50 Labs: Abnormal Lab Results - Last 24 Hours (Table) 08/27/23 Range/Units 07:50 Sodium 133 L (137-145) mmol/L Chloride 90 L (98-107) mmol/L Carbon Dioxide 33 H (22-30) mmol/L Microbiology - Last 24 Hours (Table) 08/23/23 11:00 Gram Stain - Final Bronchoalviolar Lavage - Right Bronchial Washings Culture - Final - Imaging and Cardiology Chest x-ray: report reviewed, image reviewed Assessment and Plan Assessment: Right upper lobe non-small cell lung cancer with neuroendocrine features, status post bronchoscopy, right robotic assisted thoracoscopic surgery with right upper lobectomy, mediastinal lymph node dissection and intercostal nerve block 3 levels, surgical pathology results showing poorly differentiated non-small cell carcinoma with neuroendocrine differentiation, consistent with large cell neuroendocrine carcinoma, also shows tumor invades the visceral pleura and involves the fragmented parenchymal margin, bronchial and vascular margins negative, 2 of 4 hilar lymph nodes positive for metastasis COPD with a preoperative FEV1 87% of predicted value and a DLCO 55% of predicted value Asthma Diverticulitis Hyperlipidemia GERD Osteoarthritis Chronic tobacco dependence, recently quit smoking in June 2023 Chest x-ray, showing atelectasis right mid lung Right-sided pneumothorax on chest x-ray Plan: Patient is scheduled to have a right pigtail catheter chest tube placed by [facility] radiology today, repeat chest x-ray once chest tube has been placed. The right pleural chest tube to low continuous wall suction -20 cm H2O. Continue to monitor for air leak resolution and right pneumothorax resolution. Continue Mucinex 1200 mg by mouth twice a day as well as Mucomyst 200 mg inhalation 3 times a day. Chest physiotherapy every 4 hours. Wean O2 as tolerated. Encourage incentive spirometry is 10 times every hour while awake. Bronchodilators/steroids per pulmonology Will monitor daily chest x-rays and labs. Continue to encourage Flutter valve ordered by pulmonary critical care service. Increase activity as tolerated. Out of bed for all meals. GI/DVT prophylaxis. Pain control with current medication regimen. Pathology results discussed with the patient by Dr. Espino discussed with patient on 08/25/2023. More recommendations to follow based on patient's clinical course. Time with Patient: Greater than 30
[2023-08-27] MEDS: ACETAMINOPHEN TAB 500 MG TAB PO PRN (16:16)
[2023-08-28] MEDS: HEPARIN SODIUM,PORCINE 5,000 UNIT/ML 1 ML VIAL SQ SCH ×4 (00:01→22:21)
[2023-08-28] MEDS: PANTOPRAZOLE 40 MG TABLET PO SCH ×2 (06:55→17:48)
[2023-08-28] MEDS: SENNOSIDES 8.6 MG TAB PO SCH (08:50)
[2023-08-28] MEDS: ATORVASTATIN 40 MG TAB PO SCH (08:50)
[2023-08-28] MEDS: guaiFENesin 600 MG TABLET.ER PO SCH ×2 (08:50→22:21)
[2023-08-28] MEDS: DEMECLOCYCLINE 150 MG TAB PO SCH (08:50)
[2023-08-28] MEDS: traMADol 50 MG TAB PO SCH ×4 (08:50→22:20)
[2023-08-28] MEDS: FUROSEMIDE 10 MG/ML 2 ML VIAL IV SCH ×2 (08:51→17:48)
[2023-08-28 09:19] LABS: African American GFR (CKD) >90 (>60 ml/min/1.73 sqM); Anion Gap 8 mmol/L; Blood Urea Nitrogen 16 mg/dL (7-17); Calcium 8.8 mg/dL (8.4-10.2); Carbon Dioxide 34 mmol/L (22-30); Chloride 88 mmol/L (98-107); Glucose 99 mg/dL (74-99); Magnesium 1.9 mg/dL (1.6-2.3); Non-African American GFR(CKD) >90 (>60 ml/min/1.73 sqM); Potassium 4.7 mmol/L (3.5-5.1); Sodium 130 mmol/L (137-145)
[2023-08-28] MEDS: FORMOTEROL FUMARATE 20 MCG/2 ML NEBU INHALATION SCH ×2 (09:48→20:16)
[2023-08-28] MEDS: IPRATROPIUM-ALBUTEROL 3 ML NEB IH SCH ×4 (09:48→20:16)
[2023-08-28] MEDS: ACETYLCYSTEINE 800 MG/4 ML VIAL INHALATION SCH ×3 (09:48→20:15)
--- NOTE | 2023-08-28 11:44 | P.PN ---
Subjective Progress Note Date: 08/28/23 Principal diagnosis: Status post right upper lobectomy. This is a 57-year-old female, known history of tobacco dependence syndrome, patient saw me in the office for chronic cough. Chest x-ray in the office showed right upper lobe mass further workup including CT of the chest and PET scan showed 5.6 cm mass in the right upper lobe with hypermetabolic activity noted on the PET scan with SUV of 9.88, no evidence at the time of any further metastatic disease. 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 Patient at that time had mostly symptoms of chronic cough but no other constitutional symptoms. Patient was referred to Dr. Espino, and she underwent right robotic-assisted thoracoscopic surgery with right upper lobectomy and mediastinal lymph node dissection. Postoperatively patient was sent to the ICU she was extubated in the recovery room, and I was asked to see her on consultation this morning. Patient seems to be doing well, relatively asymptomatic, chest x-ray showed a small right-sided pneumothorax, chest tube remains in place, and she has some haziness in the right upper lung kaba. Chest tube is connected to suction and that being addressed by surgery on the case labs this morning showed a slightly low sodium of 129 her WCL is 10.3 hem oglobin 11.7, patient is on 2 L nasal cannula with O2 sat of 97% and she is hemodynamically stable Patient was reevaluated today on 08/21/2023, patient remains in the ICU as an overflow, she seems to be comfortable, not in any distress, she is on 4 L nasal cannula. Chest x-ray continues to show pneumothorax of the right apex, and now she is developing more atelectatic changes in the right upper lung field. Patient apparently has some mucus plugging and she is having difficulty clearing her mucous plugs and secretions. She will be placed on Mucomyst, he is receiving updrafts, and she was instructed on aggressive use of her incentive spirometer. She is also on updrafts. Patient developed also hyponatremia, did not improve much with fluids yesterday, hence I believe it is most likely SIADH picture and now I'm recommending fluid restriction and demeclocycline Reevaluated today 08/22/2023, patient remains in the ICU, she is basically an overflow, doing quite well, she is not in any distress. She is on 3 L nasal cannula, her chest x-ray continues to show some atelectasis in upper lung kaba, continues to have a small right-sided pneumothorax continues to have a small air leak. Patient is improving with demeclocycline and her sodium is improving. She is also improving with Mucinex, able to cough up some mucous plugs. Hence no immediate plans to perform bronchoscopy but that's to be considered if the patient doesn't did not show improvement. WBC count is 9.7 hemoglobin is 10.2 sodium 129 potassium 4.1 renal profile is normal. Progress note dated 08/23/2023. This is a 57-year-old female who was admitted on August 19, for a right upper lobectomy, secondary to lung cancer, which was performed on August 19. Currently, she is on 4 L of oxygen, and not receiving any IV fluids. The patient's chest x-rays continue to so infiltrate, likely in the RML, since there is no right upper lobe anymore. Anyway, cardiothoracic surgery would like me to do a bronchoscopy, and clearing out any secretions in the lung, which may be attributing to her abnormality. The patient is congested in the chest, and is coughing up some phlegm. White count 9.5, hemoglobin 10.3, hematocrit 30.9, the platelet count 287,000. Sodium 128, potassium 4.1, chloride 93, CO2 30, BUN 8, creatinine 0.63. Chest x-ray shows a small right apical pneumothorax, and consolidation, likely in the RML, since there is no right upper lobe. Progress note dated 08/24/2023. 57-year-old female was admitted to the hospital on August 19, for right upper lobectomy, secondary to lung cancer. Surgery was performed on August 19. Currently, she is resting comfortably in the intensive care unit. She's in room 256. She continues on oxygen at 4 L. She's not receiving any IV fluids. Yesterday, we did bronchoscopy, and BAL, to the right middle lobe. The patient does not have a right upper lobe. The BAL was sent for cytology, and microbiology. Currently, she is doing better, and in my opinion, her chest x- ray shows improvement in the infiltrate, in the right middle lobe. Labs today include a white count of 8, hemoglobin 10.5, hematocrit 30.8, and a normal platelet count. Sodium 132, potassium 3.7, chlorides 92, CO2 34, with a normal BUN and creatinine. If fluid analysis shows significant fluid be hazy, with 73% PMNs. In my opinion, the infiltrate in the right middle lobe, is improved, and the patient has a very small right apical pneumothorax. Chest tube has been removed. Progress note dated 08/25/2023. 57-year-old female who is admitted to the hospital on August 19, status post right upper lobectomy, secondary to lung cancer. She ended up having non-small cell lung cancer, with neuroendocrine features. All the lymph nodes, that were sampled, were negative. She is seen today in room 352. She is currently on 4 L of oxygen. No IV fluids. The patient is hoping to be discharged in the near future. White count 8.7, hemoglobin 10.6, hematocrit 32.5, and platelet count 376,000. Sodium 132, potassium 4.1, chlorides 92, CO2 34, BUN 11, and creatinine 0.62. Chest x-ray is interpreted as being stable by the radiologist. Progress note dated 08/26/2023. The patient is seen today in room 352. She continues on 4 L of oxygen. No IV fluids. The patient was admitted to the hospital on August 19, and underwent a right upper lobectomy, secondary to non-small cell lung cancer. The patient's lymph nodes that were sampled, all negative for malignancy. Labs today include a white count 10.4, hemoglobin 11, hematocrit 32.5, within normal platelet count. Sodium 1:30, potassium 4.5, chlorides 90, CO2 32, BUN 11, creatinine 0.57. The patient's chest x-ray today shows an increase in the right-sided pneumothorax. There is some right-sided subcutaneous emphysema. Computed tomography scan shows a 50% hydropneumothorax on the right side, with a large area of airspace consolidation. There is pneumomediastinum, and subcutaneous emphysema. Progress note dated 08/27/2023. 57-year-old female seen in room 352. The patient is status post right upper lobectomy. She continues on oxygen at 2 L. Unfortunately, the patient developed a pneumothorax on the right, and a chest tube was placed by cardiothoracic surgery. She was admitted back on August 19, and underwent a right upper lobectomy, secondary to non-small cell lung cancer. All lymph nodes were negative. Currently, she is on 2 L as mentioned, no IV fluids. She does have a leak from the chest tube. White count 9, hemoglobin 11.8, hematocrit 35.4, and platelet count normal. Sodium 133, potassium 4.8, chlorides 90, CO2 33, BUN 13, creatinine 0.63. Chest x-ray shows a properly positioned right- sided chest tube, with expansion of the right lung, and a significant reduction in the size of the pneumothorax. Progress note dated 08/28/2023. 57-year-old female seen in room 352. The patient is status post right upper lobectomy, on August 19. Unfortunately, more recently, she developed right- sided pneumothorax, and required chest tube reinsertion. She's currently on 2 L of oxygen. No IV fluids. Chest tube is to suction. There is no obvious leak noted. Labs today include a sodium 130, potassium 4.7, chlorides 88, CO2 34, BUN 16, and creatinine 0.58. Magnesium is 1.9. Chest x-ray shows subcutaneous emphysema, and a midlung infiltrate on the right. Objective - Vital Signs Vital signs: Vital Signs Temp 98.3 F 08/28/23 08:00 Pulse 88 08/28/23 10:17 Resp 18 08/28/23 08:00 BP 114/77 08/28/23 08:00 Pulse Ox 96 08/28/23 09:52 FiO2 Intake & Output 08/27/23 08/28/23 08/28/23 18:59 06:59 18:59 Intake Total 720 240 Output Total 1470 400 Balance -750 -400 240 Intake: Oral 720 240 Output: Chest Tube Drainage 370 0 Chest Tube Right 370 0 Urine 1100 400 Other: Voiding Method Toilet Toilet Toilet ABP, PAP, CO, CI - Last Documented Arterial Blood Pressure 127/57 - Exam No acute distress, oriented 3. The patient's currently on 2 L. Saturations are 96 %. HEENT examination is grossly unremarkable. Mucous membranes are moist. No oral lesions. Neck supple. Full range of motion. No adenopathy thyromegaly or neck vein distention. Cardiovascular examination reveals regular rhythm rate. S1-S2 normal. No S3 or S4. No discernible murmur noted. Heart rate 88 bpm. Subcutaneous emphysema is noted. Lungs reveal coarse bilateral rhonchi. Minimal crackles. No wheezes. Breath s ounds equal bilaterally. The patient is on 2 L. Saturations are 96%. Abdomen soft bowel sounds are heard. No masses or tenderness. Extremities are intact. No cyanosis clubbing or edema. Skin is without rash or lesion. Neurologic examination is brief but nonfocal. - Labs CBC & Chem 7: 08/27/23 07:50 08/28/23 08:25 Labs: Abnormal Lab Results - Last 24 Hours (Table) 08/28/23 Range/Units 08:25 Sodium 130 L (137-145) mmol/L Chloride 88 L (98-107) mmol/L Carbon Dioxide 34 H (22-30) mmol/L Assessment and Plan Assessment: Status post right upper lobectomy, for non-small cell lung cancer, postop day #9. Status post mediastinal lymph node dissection, postop day #9. All nodes negative. Status post bronchoscopy, 08/23/2023, with BAL to the right middle lobe. Postoperative right, 40% hydropneumothorax, with associated subcutaneous emphysema. Hyponatremia, secondary to SIADH. Mild COPD with an FEV1 that's 87% of predicted. Dyslipidemia. Chronic cough. DJD. Tobacco dependence syndrome. Endobronchial mucus plugging and atelectasis, right lung. Plan: Plan dated 08/23/2023. The patient will undergo a bronchoscopy this morning. In addition, we recommend continued use of incentive spirometer, as well as a flutter valve, that will be ordered for the patient. Currently, the patient's on 4 L. She will have a chest x-ray after bronchoscopy. Additional recommendations and suggestions are forthcoming. Today is postop day #4, status post robotically assisted right upper lobectomy, and mediastinal lymph node dissection for lung cancer, non- small cell type. Prognosis is guarded. We will continue to follow. Plan dated 08/24/2023. The patient is seen today in room 256. She remains on 4 L of oxygen. No IV fluids. Yesterday, she had bronchoscopy and therapeutic lavage, with BAL to, to the right middle lobe. The fluid was sent for analysis including microbiology. Clinically, she appears relatively stable. In my opinion, the chest x-rays improved. Labs, x-rays, medications are reviewed. No additional recommendations are made. Prognosis is guarded. Plan dated 08/25/2023. The patient is stable. The patient will see us back in the office, after discharge. She will see the doctor that did her pulmonary consultation. The patient may have to be discharged home on oxygen therapy. She probably will not need it long-term. The results of the surgery were explained to her. Labs, x- rays, and medications are reviewed. Additional recommendations and suggestions are forthcoming. Prognosis is guarded. Plan dated 08/26/2023. Unfortunately, the patient's right-sided pneumothorax is gotten quite large, estimated to be about 40%. It is a right-sided hydropneumothorax. There is also an area of consolidation. We will continue to follow make recommendations along the way. The patient continues on oxygen at 4 L. Labs, x-rays, and medications are reviewed. Prognosis is certainly guarded. Plan dated 08/27/2023. The patient seen in room 352. She continues on oxygen at 2 L. No IV fluids. A chest tube was placed by cardiothoracic surgery. The pneumothorax seems to be reduced in size. Follow, and make recommendations along the way. The patient is not particularly symptomatic. Prognosis is guarded. The patient is now been in the hospital for 8 days. Plan dated 08/28/2023. The patient is on 2 L of oxygen. The patient has a right-sided chest tube in place. There is no leak. The chest tubes are to suction. The patient is not receiving any IV fluids. Labs, x-rays, medications are reviewed. Prognosis is certainly guarded. Cardiothoracic surgery is following the patient as well. They did her initial right upper lobectomy on August 19. We will continue to follow and make recommendations along the way. Time with Patient: Less than 30
--- NOTE | 2023-08-28 11:55 | P.PN ---
Subjective Progress Note Date: 08/28/23 Principal diagnosis: Right upper lobe non-small cell lung cancer with neuroendocrine features. Past medical history significant for COPD with preoperative FEV1 87% of predicted va lue and a DLCO 55% of predicted value, asthma, diverticulitis, hyperlipidemia, GERD, osteoarthritis, and chronic ongoing tobacco dependence, recently quit smoking. POD #9 bronchoscopy, right robotic assisted thoracoscopic surgery with right upper lobectomy, mediastinal lymph node dissection, intercostal nerve block 3 levels. The patient was seen and examined today 08/28/2023 at her bedside on the third floor cardiac stepdown unit. She is currently sitting up to the bedside chair, is awake, alert, oriented 3 and is in no acute apparent distress. She denies any complaints of pain or shortness of breath at this time. Oxygen saturations are 97% on 2 L nasal cannula and is achieving 1750 mL on her incentive spirometry with encouragement. Remote telemetry showing normal sinus rhythm hea rt rate 99 pbm. She is been afebrile the last 24 hours. The patient underwent a placement of a right sided pigtail chest tube yesterday by interventional radiology. It is connected to bedside continuous wall suction -20 cm H2O. Intermittent air leak is present. Skin thin serosanguineous drainage with 210 mL output in the last 24 hours. Laboratory and chest x-ray results reviewed. Objective - Vital Signs Vital signs: Vital Signs Temp 98.3 F 08/28/23 08:00 Pulse 88 08/28/23 10:17 Resp 18 08/28/23 08:00 BP 114/77 08/28/23 08:00 Pulse Ox 96 08/28/23 09:52 FiO2 Intake & Output 08/27/23 08/28/23 08/28/23 18:59 06:59 18:59 Intake Total 720 240 Output Total 1470 400 Balance -750 -400 240 Intake: Oral 720 240 Output: Chest Tube Drainage 370 0 Chest Tube Right 370 0 Urine 1100 400 Other: Voiding Method Toilet Toilet Toilet ABP, PAP, CO, CI - Last Documented Arterial Blood Pressure 127/57 - Exam CONSTITUTIONAL: Appears comfortable, cooperative, no acute distress RESPIRATORY: Lungs sounds scattered expiratory wheezes throughout, diminished to her bilateral bases, right greater than left. Respirations are symmetrical, nonlabored. Currently on 2 L nasal cannula with oxygen saturation 97%. Able to achieve 1750 mL on incentive spirometry. Strong cough. Right pleural pigtail catheter chest tube in place to low continuous wall suction -20 cm H2O. Intermittent air leak is present. Draining thin serosanguineous drainage. CARDIOVASCULAR: S1, S2 present. Regular rate and rhythm, sinus rhythm on t elemetry. Palpable peripheral pulses bilaterally. No edema present. No calf pain or tenderness noted. SCDs present. GASTROINTESTINAL: Abdomen soft, nontender, nondistended. Active bowel sounds p resent 4 quadrants. Tolerating diet. GENITOURINARY: Continues to void. INTEGUMENTARY: Skin is warm and dry with evidence of good perfusion. Right chest thoracic incisions well approximated and covered with dry intact dressing. Small amount of scattered subcutaneous emphysema to her right chest, right arm and neck. NEUROLOGIC: Cranial nerves II through XII intact. No focal deficits. MUSKULOSKELETAL: Able to move all extremities, strength equal bilaterally, gait normal. PSYCHIATRIC: Alert and oriented to person place and time, appropriate affect, intact judgment and insight. - Allied health notes Allied health notes reviewed: nursing - Labs CBC & Chem 7: 08/27/23 07:50 08/28/23 08:25 Labs: Abnormal Lab Results - Last 24 Hours (Table) 08/28/23 Range/Units 08:25 Sodium 130 L (137-145) mmol/L Chloride 88 L (98-107) mmol/L Carbon Dioxide 34 H (22-30) mmol/L - Imaging and Cardiology Chest x-ray: report reviewed, image reviewed Assessment and Plan Assessment: Right upper lobe non-small cell lung cancer with neuroendocrine features, status post bronchoscopy, right robotic assisted thoracoscopic surgery with right upper lobectomy, mediastinal lymph node dissection and intercostal nerve block 3 levels, surgical pathology results showing poorly differentiated non-small cell carcinoma with neuroendocrine differentiation, consistent with large cell ne uroendocrine carcinoma, also shows tumor invades the visceral pleura and involves the fragmented parenchymal margin, bronchial and vascular margins negative, 2 of 4 hilar lymph nodes positive for metastasis COPD with a preoperative FEV1 87% of predicted value and a DLCO 55% of predicted value Asthma Diverticulitis Hyperlipidemia GERD Osteoarthritis Chronic tobacco dependence, recently quit smoking in June 2023 Chest x-ray, showing atelectasis right mid lung Right-sided pneumothorax on chest x-ray Plan: Keep right pigtail catheter chest tube in place to low continuous wall suction. We will increase her wall suction to -40 cm H2O. Continue to monitor for air leak resolution and resolution of right pneumothorax. Continue Mucinex 1200 mg by mouth twice a day as well as Mucomyst 200 mg inhalation 3 times a day. Chest physiotherapy every 4 hours. Wean O2 as tolerated. Encourage incentive spirometry is 10 times every hour while awake. Bronchodilators/steroids per pulmonology Will monitor daily chest x-rays and labs. Continue to encourage Flutter valve ordered by pulmonary critical care service. Increase activity as tolerated. Out of bed for all meals. GI/DVT prophylaxis. Pain control with current medication regimen. Pathology results discussed with the patient by Dr. Espino discussed with patient on 08/25/2023. Increase Lasix to 20 mg IV twice a day and potassium chloride 10 mEq by mouth daily More recommendations to follow based on patient's clinical course. Time with Patient: Greater than 30
--- NOTE | 2023-08-28 12:03 | XR ---
EXAM: XR chest 1V portable CLINICAL INDICATION:Female, 57 years old with history of Right-sided pneumothorax; LOCATED WITHIN [facility] COMPARISON: 08/27/2023 and before TECHNIQUE: Chest single view. FINDINGS: Lines/tubes/devices: Stable right basilar small caliber chest tube. EKG leads overlie the chest. Cardiomediastinum: Stable. Heart size is normal. Mild calcification of the aortic arch. Unchanged small amount of pneumo mediastinum. Vasculature: No increased pulmonary vasculature. Lungs/pleura: Overall stable small to moderate right-sided pneumothorax. Slightly improved aeration of the right angelika ng with slightly diminished right lung consolidative opacity. No sizable pleural effusion is seen. Le ft lung and pleural space remain clear. Bones/soft tissues: Bony thorax appears grossly unchanged as seen. Moderate amount of soft tissue emphysema in the right more than left chest wall and base of neck, essentially unchanged. IMPRESSION: 1. Stable small to moderate right pneumothorax. 2. Slightly improved aeration of the right lung with slightly diminished right lung consolidative op acity. 3. Stable soft tissue emphysema in the right more than left chest wall and base of neck. Small volum e pneumomediastinum, unchanged.
[2023-08-29] MEDS: PANTOPRAZOLE 40 MG TABLET PO SCH ×2 (06:36→17:43)
[2023-08-29 08:09] LABS: African American GFR (CKD) >90 (>60 ml/min/1.73 sqM); Anion Gap 12 mmol/L; Blood Urea Nitrogen 19 mg/dL (7-17); Calcium 8.9 mg/dL (8.4-10.2); Carbon Dioxide 34 mmol/L (22-30); Chloride 84 mmol/L (98-107); Glucose 104 mg/dL (74-99); Non-African American GFR(CKD) >90 (>60 ml/min/1.73 sqM); Potassium 4.3 mmol/L (3.5-5.1); Sodium 130 mmol/L (137-145)
[2023-08-29] MEDS: ACETYLCYSTEINE 800 MG/4 ML VIAL INHALATION SCH ×3 (08:22→21:21)
[2023-08-29] MEDS: FORMOTEROL FUMARATE 20 MCG/2 ML NEBU INHALATION SCH ×2 (08:22→21:20)
[2023-08-29] MEDS: IPRATROPIUM-ALBUTEROL 3 ML NEB IH SCH ×4 (08:22→21:21)
[2023-08-29] MEDS: traMADol 50 MG TAB PO SCH ×4 (08:22→20:52)
[2023-08-29] MEDS: ATORVASTATIN 40 MG TAB PO SCH (08:22)
[2023-08-29] MEDS: SENNOSIDES 8.6 MG TAB PO SCH (08:22)
[2023-08-29] MEDS: guaiFENesin 600 MG TABLET.ER PO SCH ×2 (08:22→20:52)
[2023-08-29] MEDS: HEPARIN SODIUM,PORCINE 5,000 UNIT/ML 1 ML VIAL SQ SCH ×2 (08:23→17:43)
[2023-08-29] MEDS: FUROSEMIDE 10 MG/ML 2 ML VIAL IV SCH (08:23)
--- NOTE | 2023-08-29 08:53 | XR ---
EXAM: XR chest 1V portable CLINICAL INDICATION:Female, 57 years old with history of s/p right upper lobectomy; [facility] COMPARISON: 08/28/2023 and before TECHNIQUE: Chest single view. FINDINGS: Lines/tubes/devices: Stable small bore right basilar chest tube. EKG leads overlie the chest. Cardiomediastinum: Stable. Heart size is normal. Mild calcification of the aortic arch. Small amount of pneumomediastinu m again suspected, appears grossly unchanged. Vasculature: No increased pulmonary vasculature. Lungs/pleura: Overall stable small to moderate right-sided pneumothorax, appears somewhat loculated. Similar appear ance of the right lung with persistent consolidative opacity, greatest in the perihilar region. No si zable pleural effusion is seen. Left lung appears relatively clear. Bones/soft tissues: Bony thorax appears grossly unchanged as seen. Moderate amount of soft tissue emphysema in the right more than left chest wall and base of neck, stable. IMPRESSION: 1. Small to moderate size right pneumothorax, unchanged. 2. Similar appearance of the right lung with persistent consolidative opacity. 3. Stable soft tissue emphysema. Small volume pneumomediastinum, unchanged.
[2023-08-29] MEDS ORDERED: POTASSIUM CHLORIDE ER 10 MEQ TAB.ER.PRT PO SCH (09:00)
--- NOTE | 2023-08-29 10:15 | P.PN ---
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 Past medical history significant for COPD with preoperative FEV1 87% of predicted va lue and a DLCO 55% of predicted value, asthma, diverticulitis, hyperlipidemia, GERD, osteoarthritis, and chronic ongoing tobacco dependence, recently quit smoking. POD #10 bronchoscopy, right robotic assisted thoracoscopic surgery with right upper lobectomy, mediastinal lymph node dissection, intercostal nerve block 3 levels. Patient was seen and examined in follow-up today 08/29/2023 at her bedside on the cardiac stepdown unit. He is currently sitting up to the bedside edge, is awake, alert, oriented 3 and is in no acute distress. Oxygen saturation are 93% on 2 L nasal cannula and she is achieving around 1500 mL on her incentive spirometry with encouragement. Right chest pigtail catheter remains in place to low continuous wall suction -40 cm H2O. Intermittent air leak is present. Draining thin serosanguineous drainage. Remote telemetry showing sinus tachycardia heart rate 114 BPM. The patient reports she has been up ambulating in her room and sitting up in the chair. Laboratory and chest x-ray results reviewed. Objective - Vital Signs Vital signs: Vital Signs Temp 98.0 F 08/29/23 08:00 Pulse 108 H 08/29/23 08:42 Resp 20 08/29/23 08:00 BP 118/88 08/29/23 08:00 Pulse Ox 92 L 08/29/23 08:29 FiO2 Intake & Output 08/28/23 08/29/23 08/29/23 18:59 06:59 18:59 Intake Total 240 180 Output Total 0 1200 Balance 240 -1200 180 Intake: Oral 240 180 Output: Chest Tube Drainage 0 Chest Tube Right 0 Urine 0 1200 Other: Voiding Method Toilet Toilet Toilet ABP, PAP, CO, CI - Last Documented Arterial Blood Pressure 127/57 - Exam CONSTITUTIONAL: Appears comfortable, cooperative, no acute distress RESPIRATORY: Lungs sounds scattered expiratory wheezes throughout, diminished to her bilateral bases, right greater than left. Respirations are symmetrical, nonlabored. Currently on 2 L nasal cannula with oxygen saturation 92%. Able to achieve 1500 mL on incentive spirometry. Strong cough. Right pleural pigtail catheter chest tube in place to low continuous wall suction -40 cm H2O. Interm ittent air leak is present. Draining thin serosanguineous drainage. CARDIOVASCULAR: S1, S2 present. Regular rate and rhythm, sinus rhythm on telemetry. Palpable peripheral pulses bilaterally. No edema present. No calf pain or tenderness noted. SCDs present. GASTROINTESTINAL: Abdomen soft, nontender, nondistended. Active bowel sounds present 4 quadrants. Tolerating diet. GENITOURINARY: Continues to void. INTEGUMENTARY: Skin is warm and dry with evidence of good perfusion. Right [address] thoracic incisions well approximated and covered with dry intact dressing. Small amount of scattered subcutaneous emphysema to her right chest, right arm and neck. NEUROLOGIC: Cranial nerves II through XII intact. No focal deficits. MUSKULOSKELETAL: Able to move all extremities, strength equal bilaterally, gait normal. PSYCHIATRIC: Alert and oriented to person place and time, appropriate affect, intact judgment and insight. 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, status post bronchoscopy, right robotic assisted thoracoscopic surgery with right upper lobectomy, mediastinal lymph node dissection and intercostal nerve block 3 levels, surgical pathology results showing poorly differentiated non-small cell carcinoma with neuroendocrine differentiation, consistent with large cell neuroendocrine carcinoma, also shows tumor invades the visceral pleura and involves the fragmented parenchymal margin, bronchial and vascular margins negative, 2 of 4 hilar lymph nodes positive for metastasis COPD with a preoperative FEV1 87% of predicted value and a DLCO 55% of predicted value Asthma Diverticulitis Hyperlipidemia GERD Osteoarthritis Chronic tobacco dependence, recently quit smoking in June 2023 Chest x-ray, showing atelectasis right mid lung Right-sided pneumothorax on chest x-ray, status post right chest pigtail catheter placement by interventional radiology Plan: Keep right pigtail catheter chest tube in place to low continuous wall suction, turned suction down to -20 cm H2O. Continue to monitor for air leak resolution and resolution of right pneumothorax. The patient will be scheduled for a bronchoscopy and possible right chest tube placement in the operating room tomorrow to be performed by Dr. Osbaldo Espino. She'll be made nothing by mouth after midnight Continue Mucinex 1200 mg by mouth twice a day as well as Mucomyst 200 mg inh alation 3 times a day. Chest physiotherapy every 4 hours. Wean O2 as tolerated. Encourage incentive spirometry is 10 times every hour while awake. Bronchodilators/steroids per pulmonology Will monitor daily chest x-rays and labs. Continue to encourage Flutter valve ordered by pulmonary critical care service. Increase activity as tolerated. Out of bed for all meals. GI/DVT prophylaxis. Pain control with current medication regimen. Pathology results discussed with the patient by Dr. Espino discussed with patient on 08/25/2023. Discontinue Lasix and potassium. More recommendations to follow based on patient's clinical course. Time with Patient: Greater than 30
--- NOTE | 2023-08-29 10:54 | P.PN ---
Subjective Progress Note Date: 08/29/23 Principal diagnosis: Status post right upper lobectomy. This is a 57-year-old female, known history of tobacco dependence syndrome, patient saw me in the office for chronic cough. Chest x-ray in the office showed right upper lobe mass further workup including CT of the chest and PET scan showed 5.6 cm mass in the right upper lobe with hypermetabolic activity noted on the PET scan with SUV of 9.88, no evidence at the time of any further metastatic disease. 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 Patient at that time had mostly symptoms of chronic cough but no other constitutional symptoms. Patient was referred to Dr. Espino, and she underwent right robotic-assisted thoracoscopic surgery with right upper lobectomy and mediastinal lymph node dissection. Postoperatively patient was sent to the ICU she was extubated in the recovery room, and I was asked to see her on consultation this morning. Patient seems to be doing well, relatively asymptomatic, chest x-ray showed a small right-sided pneumothorax, chest tube remains in place, and she has some haziness in the right upper lung kaba. Chest tube is connected to suction and that being addressed by surgery on the case labs this morning showed a slightly low sodium of 129 her WCL is 10.3 hem oglobin 11.7, patient is on 2 L nasal cannula with O2 sat of 97% and she is hemodynamically stable Patient was reevaluated today on 08/21/2023, patient remains in the ICU as an overflow, she seems to be comfortable, not in any distress, she is on 4 L nasal cannula. Chest x-ray continues to show pneumothorax of the right apex, and now she is developing more atelectatic changes in the right upper lung field. Patient apparently has some mucus plugging and she is having difficulty clearing her mucous plugs and secretions. She will be placed on Mucomyst, he is receiving updrafts, and she was instructed on aggressive use of her incentive spirometer. She is also on updrafts. Patient developed also hyponatremia, did not improve much with fluids yesterday, hence I believe it is most likely SIADH picture and now I'm recommending fluid restriction and demeclocycline Reevaluated today 08/22/2023, patient remains in the ICU, she is basically an overflow, doing quite well, she is not in any distress. She is on 3 L nasal cannula, her chest x-ray continues to show some atelectasis in upper lung kaba, continues to have a small right-sided pneumothorax continues to have a small air leak. Patient is improving with demeclocycline and her sodium is improving. She is also improving with Mucinex, able to cough up some mucous plugs. Hence no immediate plans to perform bronchoscopy but that's to be considered if the patient doesn't did not show improvement. WBC count is 9.7 hemoglobin is 10.2 sodium 129 potassium 4.1 renal profile is normal. Progress note dated 08/23/2023. This is a 57-year-old female who was admitted on August 19, for a right upper lobectomy, secondary to lung cancer, which was performed on August 19. Currently, she is on 4 L of oxygen, and not receiving any IV fluids. The patient's chest x-rays continue to so infiltrate, likely in the RML, since there is no right upper lobe anymore. Anyway, cardiothoracic surgery would like me to do a bronchoscopy, and clearing out any secretions in the lung, which may be attributing to her abnormality. The patient is congested in the chest, and is coughing up some phlegm. White count 9.5, hemoglobin 10.3, hematocrit 30.9, the platelet count 287,000. Sodium 128, potassium 4.1, chloride 93, CO2 30, BUN 8, creatinine 0.63. Chest x-ray shows a small right apical pneumothorax, and consolidation, likely in the RML, since there is no right upper lobe. Progress note dated 08/24/2023. 57-year-old female was admitted to the hospital on August 19, for right upper lobectomy, secondary to lung cancer. Surgery was performed on August 19. Currently, she is resting comfortably in the intensive care unit. She's in room 256. She continues on oxygen at 4 L. She's not receiving any IV fluids. Yesterday, we did bronchoscopy, and BAL, to the right middle lobe. The patient does not have a right upper lobe. The BAL was sent for cytology, and microbiology. Currently, she is doing better, and in my opinion, her chest x- ray shows improvement in the infiltrate, in the right middle lobe. Labs today include a white count of 8, hemoglobin 10.5, hematocrit 30.8, and a normal platelet count. Sodium 132, potassium 3.7, chlorides 92, CO2 34, with a normal BUN and creatinine. If fluid analysis shows significant fluid be hazy, with 73% PMNs. In my opinion, the infiltrate in the right middle lobe, is improved, and the patient has a very small right apical pneumothorax. Chest tube has been removed. Progress note dated 08/25/2023. 57-year-old female who is admitted to the hospital on August 19, status post right upper lobectomy, secondary to lung cancer. She ended up having non-small cell lung cancer, with neuroendocrine features. All the lymph nodes, that were sampled, were negative. She is seen today in room 352. She is currently on 4 L of oxygen. No IV fluids. The patient is hoping to be discharged in the near future. White count 8.7, hemoglobin 10.6, hematocrit 32.5, and platelet count 376,000. Sodium 132, potassium 4.1, chlorides 92, CO2 34, BUN 11, and creatinine 0.62. Chest x-ray is interpreted as being stable by the radiologist. Progress note dated 08/26/2023. The patient is seen today in room 352. She continues on 4 L of oxygen. No IV fluids. The patient was admitted to the hospital on August 19, and underwent a right upper lobectomy, secondary to non-small cell lung cancer. The patient's lymph nodes that were sampled, all negative for malignancy. Labs today include a white count 10.4, hemoglobin 11, hematocrit 32.5, within normal platelet count. Sodium 1:30, potassium 4.5, chlorides 90, CO2 32, BUN 11, creatinine 0.57. The patient's chest x-ray today shows an increase in the right-sided pneumothorax. There is some right-sided subcutaneous emphysema. Computed tomography scan shows a 50% hydropneumothorax on the right side, with a large area of airspace consolidation. There is pneumomediastinum, and subcutaneous emphysema. Progress note dated 08/27/2023. 57-year-old female seen in room 352. The patient is status post right upper lobectomy. She continues on oxygen at 2 L. Unfortunately, the patient developed a pneumothorax on the right, and a chest tube was placed by cardiothoracic surgery. She was admitted back on August 19, and underwent a right upper lobectomy, secondary to non-small cell lung cancer. All lymph nodes were negative. Currently, she is on 2 L as mentioned, no IV fluids. She does have a leak from the chest tube. White count 9, hemoglobin 11.8, hematocrit 35.4, and platelet count normal. Sodium 133, potassium 4.8, chlorides 90, CO2 33, BUN 13, creatinine 0.63. Chest x-ray shows a properly positioned right- sided chest tube, with expansion of the right lung, and a significant reduction in the size of the pneumothorax. Progress note dated 08/28/2023. 57-year-old female seen in room 352. The patient is status post right upper lobectomy, on August 19. Unfortunately, more recently, she developed right- sided pneumothorax, and required chest tube reinsertion. She's currently on 2 L of oxygen. No IV fluids. Chest tube is to suction. There is no obvious leak noted. Labs today include a sodium 130, potassium 4.7, chlorides 88, CO2 34, BUN 16, and creatinine 0.58. Magnesium is 1.9. Chest x-ray shows subcutaneous emphysema, and a midlung infiltrate on the right. Progress note dated 08/29/2023. 57-year-old female seen in room 352. The patient had a right upper lobectomy for lung cancer back in August 19. Unfortunately, she is sustained a right- sided pneumothorax. The patient required chest tube insertion, and is currently on 2 L of oxygen, with saturations of 92%. The chest tube is to suction. This no air leak. According to the patient, cardiothoracic surgery discussed with her, the possibility of bronchoscopy, tomorrow. Sodium 130, potassium 4.3, chloride 84, CO2 34, BUN 19, creatinine 0.65. Calcium is 8.9. Chest x-ray reveals a persistent right-sided pneumothorax, with a right midlung consolidation. There is evidence of subcutaneous emphysema. Objective - Vital Signs Vital signs: Vital Signs Temp 98.0 F 08/29/23 08:00 Pulse 108 H 08/29/23 08:42 Resp 20 08/29/23 08:00 BP 118/88 08/29/23 08:00 Pulse Ox 92 L 08/29/23 08:29 FiO2 Intake & Output 08/28/23 08/29/23 08/29/23 18:59 06:59 18:59 Intake Total 240 180 Output Total 0 1200 Balance 240 -1200 180 Intake: Oral 240 180 Output: Chest Tube Drainage 0 Chest Tube Right 0 Urine 0 1200 Other: Voiding Method Toilet Toilet Toilet ABP, PAP, CO, CI - Last Documented Arterial Blood Pressure 127/57 - Exam No acute distress, oriented 3. The patient's currently on 2 L. Saturations are 92 %. HEENT examination is grossly unremarkable. Mucous membranes are moist. No oral lesions. Neck supple. Full range of motion. No adenopathy thyromegaly or neck vein distention. Cardiovascular examination reveals regular rhythm rate. S1-S2 normal. No S3 or S4. No discernible murmur noted. Heart rate 92 bpm. Subcutaneous emphysema is noted. Lungs reveal coarse bilateral rhonchi. Minimal crackles. No wheezes. Breath sounds equal bilaterally. The patient is on 2 L. Saturations are 92%. Abdomen soft bowel sounds are heard. No masses or tenderness. Extremities are intact. No cyanosis clubbing or edema. Skin is without rash or lesion. Neurologic examination is brief but nonfocal. - Labs CBC & Chem 7: 08/27/23 07:50 08/29/23 07:23 Labs: Abnormal Lab Results - Last 24 Hours (Table) 08/29/23 Range/Units 07:23 Sodium 130 L (137-145) mmol/L Chloride 84 L (98-107) mmol/L Carbon Dioxide 34 H (22-30) mmol/L BUN 19 H (7-17) mg/dL Glucose 104 H (74-99) mg/dL Assessment and Plan Assessment: Status post right upper lobectomy, for non-small cell lung cancer, postop day #10. Status post mediastinal lymph node dissection, postop day #10. All nodes negative. Status post bronchoscopy, 08/23/2023, with BAL to the right middle lobe. Postoperative right, 40% hydropneumothorax, with associated subcutaneous emphysema. Hyponatremia, secondary to SIADH. Mild COPD with an FEV1 that's 87% of predicted. Dyslipidemia. Chronic cough. DJD. Tobacco dependence syndrome. Endobronchial mucus plugging and atelectasis, right lung. Plan: Plan dated 08/23/2023. The patient will undergo a bronchoscopy this morning. In addition, we recommend continued use of incentive spirometer, as well as a flutter valve, that will be ordered for the patient. Currently, the patient's on 4 L. She will have a chest x-ray after bronchoscopy. Additional recommendations and suggestions are forthcoming. Today is postop day #4, status post robotically assisted right upper lobectomy, and mediastinal lymph node dissection for lung cancer, non- small cell type. Prognosis is guarded. We will continue to follow. Plan dated 08/24/2023. The patient is seen today in room 256. She remains on 4 L of oxygen. No IV fluids. Yesterday, she had bronchoscopy and therapeutic lavage, with BAL to, to the right middle lobe. The fluid was sent for analysis including microbiology. Clinically, she appears relatively stable. In my opinion, the chest x-rays improved. Labs, x-rays, medications are reviewed. No additional recommendations are made. Prognosis is guarded. Plan dated 08/25/2023. The patient is stable. The patient will see us back in the office, after discharge. She will see the doctor that did her pulmonary consultation. The patient may have to be discharged home on oxygen therapy. She probably will not need it long-term. The results of the surgery were explained to her. Labs, x- rays, and medications are reviewed. Additional recommendations and suggestions are forthcoming. Prognosis is guarded. Plan dated 08/26/2023. Unfortunately, the patient's right-sided pneumothorax is gotten quite large, estimated to be about 40%. It is a right-sided hydropneumothorax. There is also an area of consolidation. We will continue to follow make recommendations along the way. The patient continues on oxygen at 4 L. Labs, x-rays, and medications are reviewed. Prognosis is certainly guarded. Plan dated 08/27/2023. The patient seen in room 352. She continues on oxygen at 2 L. No IV fluids. A chest tube was placed by cardiothoracic surgery. The pneumothorax seems to be reduced in size. Follow, and make recommendations along the way. The patient is not particularly symptomatic. Prognosis is guarded. The patient is now been in the hospital for 8 days. Plan dated 08/28/2023. The patient is on 2 L of oxygen. The patient has a right-sided chest tube in place. There is no leak. The chest tubes are to suction. The patient is not receiving any IV fluids. Labs, x-rays, medications are reviewed. Prognosis is certainly guarded. Cardiothoracic surgery is following the patient as well. They did her initial right upper lobectomy on August 19. We will continue to follow and make recommendations along the way. Plan dated 08/29/2023. The patient is currently on 2 L of oxygen. Saturations are 92%. The patient's chest tube, on the right side, is connected to suction. There is no leak. The patient mentioned that she may undergo bronchoscopy, by cardiothoracic surgery, tomorrow, August 30. Labs, x-rays, and medications are reviewed. The patient still has a persistent right-sided pneumothorax, with subcutaneous emphysema. We will continue to follow and make recommendations along the way. Time with Patient: Less than 30
[2023-08-30] MEDS: ACETAMINOPHEN TAB 500 MG TAB PO PRN ×2 (00:01→20:49)
[2023-08-30] MEDS: HEPARIN SODIUM,PORCINE 5,000 UNIT/ML 1 ML VIAL SQ SCH ×4 (07:57→23:39)
[2023-08-30] MEDS: SENNOSIDES 8.6 MG TAB PO SCH (07:57)
[2023-08-30] MEDS: ATORVASTATIN 40 MG TAB PO SCH (07:57)
[2023-08-30] MEDS: traMADol 50 MG TAB PO SCH ×4 (07:57→23:39)
[2023-08-30] MEDS: PANTOPRAZOLE 40 MG TABLET PO SCH ×2 (07:57→18:31)
[2023-08-30] MEDS: guaiFENesin 600 MG TABLET.ER PO SCH ×2 (07:57→20:49)
--- NOTE | 2023-08-30 07:57 | XR ---
EXAMINATION TYPE: XR chest 1V portable DATE OF EXAM: 08/30/2023 6:50 AM COMPARISON: Chest radiographs from 08/29/2023 TECHNIQUE: XR chest 1V portable Portable AP radiograph of the chest. CLINICAL INDICATION:Female, 57 years old with history of s/p right upper lobectomy; FINDINGS: Lungs/Pleura: No pleural effusion. Stable small to moderate size right-sided pneumothorax. Similar ap pearance of right lung with persistent consolidative opacity extending into the perihilar region. Rig ht pleural pigtail catheter redemonstrated. Pulmonary vascularity: Unremarkable. Heart/mediastinum: Cardiomediastinal silhouette is stable. Musculoskeletal: No acute osseous pathology. Other: Extensive similar extensive subcutaneous of the seen within the right chest wall and bilateral neck and left upper chest wall. IMPRESSION: 1. Overall similar examination with small to moderate size right pneumothorax with pigtail catheter in place. 2. Similar right lung consolidative opacity extending to the perihilar region. 3. Similar extensive subcutaneous edema.
[2023-08-30] MEDS: ACETYLCYSTEINE 800 MG/4 ML VIAL INHALATION SCH ×3 (08:09→20:42)
[2023-08-30] MEDS: FORMOTEROL FUMARATE 20 MCG/2 ML NEBU INHALATION SCH ×2 (08:10→20:41)
[2023-08-30] MEDS: IPRATROPIUM-ALBUTEROL 3 ML NEB IH SCH ×4 (08:10→20:41)
[2023-08-30 08:21] LABS: HCT 34.7 % (34.0-46.0); HGB 11.8 gm/dL (11.4-16.0); MCH 29.4 pg (25.0-35.0); MCV 86.7 fL (80.0-100.0); Mean Platelet Volume 7.5; Platelet Count 516 k/uL (150-450); RDW 12.7 % (11.5-15.5); WBC 12.7 k/uL (3.8-10.6)
[2023-08-30 08:33] LABS: African American GFR (CKD) >90 (>60 ml/min/1.73 sqM); Anion Gap 10 mmol/L; Blood Urea Nitrogen 15 mg/dL (7-17); Calcium 8.9 mg/dL (8.4-10.2); Carbon Dioxide 33 mmol/L (22-30); Chloride 87 mmol/L (98-107); Glucose 104 mg/dL (74-99); Non-African American GFR(CKD) >90 (>60 ml/min/1.73 sqM); Potassium 3.9 mmol/L (3.5-5.1); Sodium 130 mmol/L (137-145)
[2023-08-30] MEDS: LEVOFLOXACIN 500MG-D5W PMX 500 MG in DEXTROSE/WATER 1 100ML.BAG IVPB SCH (08:40)
--- NOTE | 2023-08-30 13:54 | P.PN ---
Subjective Progress Note Date: 08/30/23 Status post right upper lobectomy. This is a 57-year-old female, known history of tobacco dependence syndrome, patient saw me in the office for chronic cough. Chest x-ray in the office showed right upper lobe mass further workup including CT of the chest and PET scan showed 5.6 cm mass in the right upper lobe with hypermetabolic activity noted on the PET scan with SUV of 9.88, no evidence at the time of any further metastatic disease. 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 Patient at that time had mostly symptoms of chronic cough but no other constitutional symptoms. Patient was referred to Dr. Espino, and she underwent right robotic-assisted thoracoscopic surgery with right upper lobectomy and mediastinal lymph node dissection. Postoperatively patient was sent to the ICU she was extubated in the recovery room, and I was asked to see her on consultation this morning. Patient seems to be doing well, relatively asymptomatic, chest x-ray showed a small right-sided pneumothorax, chest tube remains in place, and she has some haziness in the right upper lung kaba. Ch est tube is connected to suction and that being addressed by surgery on the case labs this morning showed a slightly low sodium of 129 her WCL is 10.3 hemoglobin 11.7, patient is on 2 L nasal cannula with O2 sat of 97% and she is hemodynamically stable Patient was reevaluated today on 08/21/2023, patient remains in the ICU as an overflow, she seems to be comfortable, not in any distress, she is on 4 L nasal cannula. Chest x-ray continues to show pneumothorax of the right apex, and now she is developing more atelectatic changes in the right upper lung field. Patient apparently has some mucus plugging and she is having difficulty clearing her mucous plugs and secretions. She will be placed on Mucomyst, he is receiving updrafts, and she was instructed on aggressive use of her incentive sp irometer. She is also on updrafts. Patient developed also hyponatremia, did not improve much with fluids yesterday, hence I believe it is most likely SIADH picture and now I'm recommending fluid restriction and demeclocycline Reevaluated today 08/22/2023, patient remains in the ICU, she is basically an overflow, doing quite well, she is not in any distress. She is on 3 L nasal cannula, her chest x-ray continues to show some atelectasis in upper lung kaba, continues to have a small right-sided pneumothorax continues to have a small air leak. Patient is improving with demeclocycline and her sodium is improving. She is also improving with Mucinex, able to cough up some mucous plugs. Hence no immediate plans to perform bronchoscopy but that's to be considered if the patient doesn't did not show improvement. WBC count is 9.7 hemoglobin is 10.2 sodium 129 potassium 4.1 renal profile is normal. Progress note dated 08/23/2023. This is a 57-year-old female who was admitted on August 19, for a right upper lobectomy, secondary to lung cancer, which was performed on August 19. Cu rrently, she is on 4 L of oxygen, and not receiving any IV fluids. The patient's chest x-rays continue to so infiltrate, likely in the RML, since there is no right upper lobe anymore. Anyway, cardiothoracic surgery would like me to do a bronchoscopy, and clearing out any secretions in the lung, which may be attributing to her abnormality. The patient is congested in the chest, and is coughing up some phlegm. White count 9.5, hemoglobin 10.3, hematocrit 30.9, the platelet count 287,000. Sodium 128, potassium 4.1, chloride 93, CO2 30, BUN 8, creatinine 0.63. Chest x-ray shows a small right apical pneumothorax, and consolidation, likely in the RML, since there is no right upper lobe. Progress note dated 08/24/2023. 57-year-old female was admitted to the hospital on August 19, for right upper lobectomy, secondary to lung cancer. Surgery was performed on August 19. Currently, she is resting comfortably in the intensive care unit. She's in room 256. She continues on oxygen at 4 L. She's not receiving any IV fluids. Yesterday, we did bronchoscopy, and BAL, to the right middle lobe. The patient does not have a right upper lobe. The BAL was sent for cytology, and microbio logy. Currently, she is doing better, and in my opinion, her chest x-ray shows improvement in the infiltrate, in the right middle lobe. Labs today include a white count of 8, hemoglobin 10.5, hematocrit 30.8, and a normal platelet count. Sodium 132, potassium 3.7, chlorides 92, CO2 34, with a normal BUN and creatinine. If fluid analysis shows significant fluid be hazy, with 73% PMNs. In my opinion, the infiltrate in the right middle lobe, is improved, and the patient has a very small right apical pneumothorax. Chest tube has been removed. Progress note dated 08/25/2023. 57-year-old female who is admitted to the hospital on August 19, status post right upper lobectomy, secondary to lung cancer. She ended up having non-small cell lung cancer, with neuroendocrine features. All the lymph nodes, that were sampled, were negative. She is seen today in room 352. She is currently on 4 L of oxygen. No IV fluids. The patient is hoping to be discharged in the near future. White count 8.7, hemoglobin 10.6, hematocrit 32.5, and platelet count 376,000. Sodium 132, potassium 4.1, chlorides 92, CO2 34, BUN 11, and creatinine 0.62. Chest x-ray is interpreted as being stable by the radiologist. Progress note dated 08/26/2023. The patient is seen today in room 352. She continues on 4 L of oxygen. No IV fluids. The patient was admitted to the hospital on August 19, and underwent a right upper lobectomy, secondary to non-small cell lung cancer. The patient's lymph nodes that were sampled, all negative for malignancy. Labs today include a white count 10.4, hemoglobin 11, hematocrit 32.5, within normal platelet count. Sodium 1:30, potassium 4.5, chlorides 90, CO2 32, BUN 11, creatinine 0.57. The patient's chest x-ray today shows an increase in the right-sided pneumothorax. There is some right-sided subcutaneous emphysema. Computed tomography scan shows a 50% hydropneumothorax on the right side, with a large area of airspace consolidation. There is pneumomediastinum, and subcutaneous emphysema. Progress note dated 08/27/2023. 57-year-old female seen in room 352. The patient is status post right upper lobectomy. She continues on oxygen at 2 L. Unfortunately, the patient developed a pneumothorax on the right, and a chest tube was placed by cardiothoracic surgery. She was admitted back on August 19, and underwent a right upper lobectomy, secondary to non-small cell lung cancer. All lymph nodes were negative. Currently, she is on 2 L as mentioned, no IV fluids. She does have a leak from the chest tube. White count 9, hemoglobin 11.8, hematocrit 35.4, and platelet count normal. Sodium 133, potassium 4.8, chlorides 90, CO2 33, BUN 13, creatinine 0.63. Chest x-ray shows a properly positioned right- sided chest tube, with expansion of the right lung, and a significant reduction in the size of the pneumothorax. Progress note dated 08/28/2023. 57-year-old female seen in room 352. The patient is status post right upper lobectomy, on August 19. Unfortunately, more recently, she developed right- sided pneumothorax, and required chest tube reinsertion. She's currently on 2 L of oxygen. No IV fluids. Chest tube is to suction. There is no obvious leak noted. Labs today include a sodium 130, potassium 4.7, chlorides 88, CO2 34, BU N 16, and creatinine 0.58. Magnesium is 1.9. Chest x-ray shows subcutaneous emphysema, and a midlung infiltrate on the right. Progress note dated 08/29/2023. 57-year-old female seen in room 352. The patient had a right upper lobectomy for lung cancer back in August 19. Unfortunately, she is sustained a right- sided pneumothorax. The patient required chest tube insertion, and is currently on 2 L of oxygen, with saturations of 92%. The chest tube is to suction. This no air leak. According to the patient, cardiothoracic surgery discussed with her, the possibility of bronchoscopy, tomorrow. Sodium 130, potassium 4.3, chloride 84, CO2 34, BUN 19, creatinine 0.65. Calcium is 8.9. Chest x-ray reveals a persistent right-sided pneumothorax, with a right midlung consolidation. There is evidence of subcutaneous emphysema. On today's evaluation of 08/30/2023, I'm seeing the patient for a follow-up. As mentioned earlier, the patient had a right upper lobe non-small cell lung cancer and the patient underwent a right upper lobectomy and mediastinal lymph node dissection. The patient continues to have difficulties with right-sided pneumothorax. This morning, the patient is on 2 L of oxygen by nasal cannula. She is using the incentive spirometer. The patient has a right-sided pigtail catheter in place. I do not appreciate any air leak. Nevertheless, the chest x-ray shows incomplete expansion of the right lung. There is a persistent pneumothorax which is moderate-sized involving the right lung. There is also a right lung consolidating opacity in the right perihilar region and evidence of subcutaneous emphysema. The patient is currently nothing by mouth. The patient is going to undergo a bronchoscopy by the cardiothoracic surgeon. This will be effective bronchoscopy. The patient will be scheduled of 12.7, hemoglobin 11.8, sodium is at 1:30, B is a 50 with a creatinine of 0.5 and a potassium level is at 3.9. The patient is hemodynamically stable. The patient remains on DuoNeb updrafts [id number] and the patient is also on accommodation Perforomist and Pulmicort neb blotchiness twice a day. She is covered empirically with Levaquin. Objective - Vital Signs Vital signs: Vital Signs Temp 98.1 F 08/30/23 08:00 Pulse 90 08/30/23 08:21 Resp 16 08/30/23 08:21 BP 114/76 08/30/23 08:00 Pulse Ox 97 08/30/23 08:10 FiO2 Intake & Output 08/29/23 08/30/23 08/30/23 18:59 06:59 18:59 Intake Total 180 Output Total 800 725 0 Balance -620 -725 0 Weight 68.8 kg Intake: Oral 180 Output: Chest Tube Drainage 10 0 Chest Tube Right 10 0 Urine 800 715 Other: Voiding Method Toilet Toilet Toilet # Voids 3 2 ABP, PAP, CO, CI - Last Documented Arterial Blood Pressure 127/57 - Exam No acute distress, oriented 3. The patient's currently on 2 L. Saturations are 92 %. HEENT examination is grossly unremarkable. Mucous membranes are moist. No oral lesions. Neck supple. Full range of motion. No adenopathy thyromegaly or neck vein distention. Cardiovascular examination reveals regular rhythm rate. S1-S2 normal. No S3 or S4. No discernible murmur noted. Subcutaneous emphysema is noted. Lungs reveal coarse bilateral rhonchi. Minimal crackles. No wheezes. Breath sounds equal bilaterally. Abdomen soft bowel sounds are heard. No masses or tenderness. Extremities are intact. No cyanosis clubbing or edema. Skin is without rash or lesion. Neurologic examination is brief but nonfocal. - Labs CBC & Chem 7: 08/30/23 06:53 08/30/23 06:53 Labs: Abnormal Lab Results - Last 24 Hours (Table) 08/30/23 08/30/23 Range/Units 06:53 06:53 WBC 12.7 H (3.8-10.6) k/uL Plt Count 516 H (150-450) k/uL Sodium 130 L (137-145) mmol/L Chloride 87 L (98-107) mmol/L Carbon Dioxide 33 H (22-30) mmol/L Glucose 104 H (74-99) mg/dL Assessment and Plan Plan: Status post right upper lobectomy, for non-small cell lung cancer, postop day #11 Status post mediastinal lymph node dissection, postop day #11. All nodes negative. Status post bronchoscopy, 08/23/2023, with BAL to the right middle lobe. Postoperative right, 40% hydropneumothorax, with associated subcutaneous emphysema. Hyponatremia, secondary to SIADH. Mild COPD with an FEV1 that's 87% of predicted. Dyslipidemia. Chronic cough. DJD. Tobacco dependence syndrome. Endobronchial mucus plugging and atelectasis, right lung. Plan: Persistent right-sided pneumothorax, no evidence of air leak from the pigtail catheter. Consider catheter being plugged. Patient is going to undergo a flexible bronchoscopy today by the cardiothoracic surgeon Daily chest x-ray Continue using incentive spirometer We'll coordinate care along with the cardiothoracic team. Keep the patient on 2 L of oxygen by nasal cannula We'll continue to follow She may need a regular chest tube insertion involving the right lung.
[2023-08-30] MEDS ORDERED: fentaNYL (PF) 50 MCG/ML 2 ML AMP ONE (16:45)
[2023-08-30] MEDS ORDERED: MIDAZOLAM 2 MG/2 ML VIAL ONE (16:45)
[2023-08-30] MEDS ORDERED: ONDANSETRON 4 MG/2 ML VIAL ONE (16:45)
[2023-08-30] MEDS ORDERED: SUCCINYLCHOLINE CHLORIDE 200 MG/10 ML VIAL IV ONE (16:45)
[2023-08-30] MEDS ORDERED: PROPOFOL 10 MG/ML 20 ML VIAL IV ONE (16:45)
[2023-08-30] MEDS ORDERED: LIDOCAINE 1% INJ 10MG/ML (20 ML MDV) ONE (16:45)
[2023-08-30] MEDS ORDERED: IV FLUID CONTINUATION 1,000 ML IV ONE (17:03)
--- NOTE | 2023-08-30 17:32 | P.OP ---
Date of Procedure: 08/30/23 Preoperative Diagnosis: Lung Cancer s/p RATS, RUL with post-operative pneumothorax and unilateral lung injury Postoperative Diagnosis: Same Procedure(s) Performed: 1. Bronchoscopy (Dr. Flaherty) 2. Right sided tube thoracosotomy Anesthesia: ODETTE Surgeon: Osbaldo Espino Secondary Set Up Man #1: Liv Flaherty Estimated Blood Loss (ml): 2 Pathology: none sent Condition: stable Disposition: PACU Indications for Procedure: This patient is a 57 year-old female who underwent RUL approximately 10 days ago and developed an ARDS picture in the right middle and lower lobes with worsening ptx. A small IR guided pigtail was placed with intermittent leak and persistent pneumothorax. She has been clinically stable, however she requires bronchoscopy to rule out middle lobe syndrome and larger bore chest tube placement. Operative Findings: Some inflammation in the middle lobe bronchus without overt signs of middle lobe syndrome. Pls refer to Dr. James note for complete details regarding the bronchoscopy. Description of Procedure: The patient was brought back to the operating room and placed in the supine position. General anesthesia was induced and the patient was intubated. Dr. Flaherty performed the brochoscopy while I prepped and draped the right chest. Please refer to his note for complete details regarding the bronchoscopy. I then took a scalpel and made a small incision in the 5th ICS anterior axillary line. Entry into the pleural cavity was gained bluntly and a 28F chest tube was inserted and anchored to the skin. The patient was extubated at the end of the procedure.
--- NOTE | 2023-08-30 18:33 | XR ---
EXAMINATION TYPE: XR chest 1V portable DATE OF EXAM: 08/30/2023 COMPARISON: 08/30/2023 INDICATION: Pneumothorax post bronchoscopy chest tube placement TECHNIQUE: Single frontal view of the chest is obtained. FINDINGS: The heart size is normal. The pulmonary vasculature is normal. Right hilar fullness is present. There is a small right pneumothorax. This is diminished from the comparison study. Surgical sutures a t the right apex. Right-sided chest tube is present with the tip in the basilar region. Extensive sub cutaneous emphysema is present on right with a small amount in the left neck. IMPRESSION: 1. Small right pneumothorax post chest tube placement at the right base. Pneumothorax is diminished o florin the interval.
[2023-08-31] MEDS: PANTOPRAZOLE 40 MG TABLET PO SCH ×2 (06:15→17:11)
[2023-08-31] MEDS: traMADol 50 MG TAB PO SCH ×4 (07:46→20:20)
[2023-08-31] MEDS: SENNOSIDES 8.6 MG TAB PO SCH (07:47)
[2023-08-31] MEDS: HEPARIN SODIUM,PORCINE 5,000 UNIT/ML 1 ML VIAL SQ SCH ×2 (07:47→15:09)
[2023-08-31] MEDS: ATORVASTATIN 40 MG TAB PO SCH (07:47)
[2023-08-31] MEDS: guaiFENesin 600 MG TABLET.ER PO SCH ×2 (07:47→20:20)
[2023-08-31] MEDS: LEVOFLOXACIN 500MG-D5W PMX 500 MG in DEXTROSE/WATER 1 100ML.BAG IVPB SCH (07:47)
[2023-08-31] MEDS: polyethylene glycoL 3350 17 GM POWD.PACK PO SCH (08:29)
[2023-08-31] MEDS: SENNOSIDES-DOCUSATE SODIUM 1 EACH TAB PO SCH ×2 (08:29→20:20)
[2023-08-31] MEDS: ACETYLCYSTEINE 800 MG/4 ML VIAL INHALATION SCH ×3 (08:52→20:37)
[2023-08-31] MEDS: IPRATROPIUM-ALBUTEROL 3 ML NEB IH SCH ×4 (08:53→20:38)
[2023-08-31 09:03] LABS: HCT 36.8 % (34.0-46.0); HGB 11.9 gm/dL (11.4-16.0); MCH 28.3 pg (25.0-35.0); MCHC 32.4 g/dL (31.0-37.0); MCV 87.6 fL (80.0-100.0); Mean Platelet Volume 7.6; Platelet Count 560 k/uL (150-450); RDW 12.8 % (11.5-15.5); WBC 10.9 k/uL (3.8-10.6)
[2023-08-31] MEDS: FORMOTEROL FUMARATE 20 MCG/2 ML NEBU INHALATION SCH ×2 (09:07→20:38)
[2023-08-31 09:08] LABS: African American GFR (CKD) >90 (>60 ml/min/1.73 sqM); Anion Gap 10 mmol/L; Blood Urea Nitrogen 14 mg/dL (7-17); Calcium 8.7 mg/dL (8.4-10.2); Carbon Dioxide 35 mmol/L (22-30); Chloride 87 mmol/L (98-107); Glucose 99 mg/dL (74-99); Non-African American GFR(CKD) >90 (>60 ml/min/1.73 sqM); Potassium 3.8 mmol/L (3.5-5.1); Sodium 132 mmol/L (137-145)
--- NOTE | 2023-08-31 09:21 | XR ---
EXAMINATION TYPE: XR chest 1V portable DATE OF EXAM: 08/31/2023 HISTORY: Shortness of breath. COMPARISON: 08/30/2023 TECHNIQUE: Single view of the chest is submitted. FINDINGS: Right sided pneumothorax is redemonstrated with apical pleural distance of 1.5 cm unchanged from prio r study. Right basilar chest tube is in place. Subcutaneous air is seen along the right chest wall. R ight hilar masslike density persists surgical sutures in place. The left lung is clear. The heart is stable. Hilar and mediastinal structures are within normal limits. Degenerative changes are seen of the dorsal spine. IMPRESSION: 1. Stable chest
--- NOTE | 2023-08-31 09:52 | P.PN ---
Subjective Progress Note Date: 08/31/23 Principal diagnosis: Right upper lobe non-small cell lung cancer with neuroendocrine features. Past medical history significant for COPD with preoperative FEV1 87% of predicted va lue and a DLCO 55% of predicted value, asthma, diverticulitis, hyperlipidemia, GERD, osteoarthritis, and chronic ongoing tobacco dependence, recently quit smoking. POD #12 bronchoscopy, right robotic assisted thoracoscopic surgery with right upper lobectomy, mediastinal lymph node dissection, intercostal nerve block 3 levels. Hyponatremia, secondary to SIADH which is common with cancer Postoperative hydropneumothorax, expected complication due to the type of surgery POD #[address] Flaherty, right-sided thoracostomy tube placed The patient was seen and examined this morning sitting up in a recliner in the cardiac stepdown unit in no acute distress. States pain is controlled on current medication regimen, denies shortness of breath. Has remained on 2 L nasal cannula since surgery yesterday although oxygen saturation in the very high 90s and likely does not need oxygen. Right pleural chest tube present to continuous wall suction, 67 mL serosanguineous drainage overnight, 150 mL since surgery, no air leak present currently. Chest x-ray reviewed with Dr. Flaherty. Objective - Vital Signs Vital signs: Vital Signs Temp 98.5 F 08/31/23 08:00 Pulse 100 08/31/23 09:12 Resp 20 08/31/23 09:10 BP 117/79 08/31/23 08:00 Pulse Ox 91 L 08/31/23 09:10 FiO2 Intake & Output 08/30/23 08/31/23 08/31/23 18:59 06:59 18:59 Intake Total 200 240 Output Total 952 134 640 Balance -752 -134 -400 Weight 68.7 kg Intake: IV 200 Oral 240 Output: Chest Tube Drainage 52 134 40 Chest Tube Right 0 Chest Tube Right Lateral 52 134 40 Chest Urine 900 600 Other: Voiding Method Toilet Toilet Toilet ABP, PAP, CO, CI - Last Documented Arterial Blood Pressure 127/57 - Exam CONSTITUTIONAL: Appears comfortable, cooperative, no acute distress RESPIRATORY: Lungs sounds diminished bilaterally. Respirations even, nonlabored. Currently on 2 L nasal cannula with oxygen saturation 98%. Able to achieve 1000 mL on incentive spirometry. Strong cough. CARDIOVASCULAR: S1, S2 present. Regular rate and rhythm, sinus rhythm on telemetry. Palpable peripheral pulses bilaterally. No edema present. No calf pain or tenderness noted. SCDs present. GASTROINTESTINAL: Abdomen soft, nontender, nondistended. Active bowel sounds present 4 quadrants. Tolerating diet. Positive flatus, no bowel movement this surgery GENITOURINARY: Continues to void INTEGUMENTARY: Skin is warm and dry NEUROLOGIC: Cranial nerves II through XII intact MUSKULOSKELETAL: Able to move all extremities, strength equal bilaterally, gait normal PSYCHIATRIC: Alert and oriented to person place and time, appropriate affect, intact judgment and insight INVASIVE LINES AND TUBES: Right pleural chest tube present and connected to wall suction, no air leaks present, 67 mL serosanguineous drainage overnight, 150 mL since surgery yesterday - Allied health notes Allied health notes reviewed: nursing - Labs CBC & Chem 7: 08/31/23 06:29 08/31/23 06:29 Labs: Abnormal Lab Results - Last 24 Hours (Table) 08/31/23 08/31/23 Range/Units 06:29 06:29 WBC 10.9 H (3.8-10.6) k/uL Plt Count 560 H (150-450) k/uL Sodium 132 L (137-145) mmol/L Chloride 87 L (98-107) mmol/L Carbon Dioxide 35 H (22-30) mmol/L - Imaging and Cardiology Chest x-ray: report reviewed, image reviewed Assessment and Plan Assessment: Right upper lobe non-small cell lung cancer with neuroendocrine features, status post bronchoscopy, right robotic assisted thoracoscopic right upper lobectomy, mediastinal lymph node dissection COPD with preoperative FEV1 87% of predicted value and a DLCO 55% of predicted value Chronic tobacco dependence with recent cessation Asthma Diverticulitis Hyperlipidemia GERD Osteoarthritis Hyponatremia, secondary to SIADH which is common with cancer Postoperative hydropneumothorax, expected complication due to the type of surgery, status post bronchoscopy performed with Dr. Flaherty, right-sided thoracostomy tube placed Plan: Chest tube placed to waterseal Continue Mucinex 1200 mg by mouth twice a day as well as Mucomyst 200 mg inhalation 3 times a day. Chest physiotherapy every 4 hours. Levaquin started yesterday prophylactically Wean O2 as tolerated. Encourage incentive spirometry is 10 times every hour while awake. Bronchodilators/steroids per pulmonology Will monitor daily chest x-rays and labs. Continue to encourage Flutter valve ordered by pulmonary critical care service. Increase activity as tolerated. Out of bed for all meals. GI/DVT prophylaxis. Pain control with current medication regimen. More recommendations to follow based on patient's clinical course.
--- NOTE | 2023-08-31 12:52 | P.PCN ---
Date of Procedure: 08/30/23 Preoperative Diagnosis: Right-sided pneumothorax Postoperative Diagnosis: Right-sided pneumothorax Normal right upper lobe stump Atelectasis of the lateral segment of the right middle lobe Anesthesia: GAYEA Surgeon: Liv Flaherty Estimated Blood Loss (ml): 0 Pathology: none sent Condition: stable Disposition: floor Operative Findings: The procedure was done in the operating room. The patient was intubated and placed on a mechanical ventilator and this was done by anesthesia services. After achieving adequate oxygenation and ventilation, the flexible bronchoscope was introduced through the orotracheal tube and was gradually advanced into the lower trachea. The tip of the orotracheal tube was seen around 3 cm above the pam. Distal trachea and the pam was sharp and within normal limits. Bilateral mainstem bronchi within normal limits. The right upper lobe was within normal limits. No evidence of any granulation tissue or bleeding. Bronchus intermedius was patent. Right middle lobe was patent. The lateral segment of the right upper lobe was somewhat atelectatic. No mucus. No endobronchial lesions. The medial segment of the right middle lobe was patent. The various segments of the right lower lobe were then inspected including the anterior lateral posterior superior and medial basilar segments and all of them were within normal limits. Bronchoscope was removed to the left. His initial left sciatica with left mainstem bronchus, left upper lobe bronchus and left lo wer lobe bronchus and the various 8 segments on the left. No significant abnormalities identified. The bronchoscope was removed and the procedure was terminated.
--- NOTE | 2023-08-31 12:56 | P.PN ---
Subjective Progress Note Date: 08/31/23 Status post right upper lobectomy. This is a 57-year-old female, known history of tobacco dependence syndrome, patient saw me in the office for chronic cough. Chest x-ray in the office showed right upper lobe mass further workup including CT of the chest and PET scan showed 5.6 cm mass in the right upper lobe with hypermetabolic activity noted on the PET scan with SUV of 9.88, no evidence at the time of any further metastatic disease. 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 Patient at that time had mostly symptoms of chronic cough but no other constitutional symptoms. Patient was referred to Dr. Espino, and she underwent right robotic-assisted thoracoscopic surgery with right upper lobectomy and mediastinal lymph node dissection. Postoperatively patient was sent to the ICU she was extubated in the recovery room, and I was asked to see her on consultation this morning. Patient seems to be doing well, relatively asymptomatic, chest x-ray showed a small right-sided pneumothorax, chest tube remains in place, and she has some haziness in the right upper lung kaba. Ch est tube is connected to suction and that being addressed by surgery on the case labs this morning showed a slightly low sodium of 129 her WCL is 10.3 hemoglobin 11.7, patient is on 2 L nasal cannula with O2 sat of 97% and she is hemodynamically stable Patient was reevaluated today on 08/21/2023, patient remains in the ICU as an overflow, she seems to be comfortable, not in any distress, she is on 4 L nasal cannula. Chest x-ray continues to show pneumothorax of the right apex, and now she is developing more atelectatic changes in the right upper lung field. Patient apparently has some mucus plugging and she is having difficulty clearing her mucous plugs and secretions. She will be placed on Mucomyst, he is receiving updrafts, and she was instructed on aggressive use of her incentive sp irometer. She is also on updrafts. Patient developed also hyponatremia, did not improve much with fluids yesterday, hence I believe it is most likely SIADH picture and now I'm recommending fluid restriction and demeclocycline Reevaluated today 08/22/2023, patient remains in the ICU, she is basically an overflow, doing quite well, she is not in any distress. She is on 3 L nasal cannula, her chest x-ray continues to show some atelectasis in upper lung kaba, continues to have a small right-sided pneumothorax continues to have a small air leak. Patient is improving with demeclocycline and her sodium is improving. She is also improving with Mucinex, able to cough up some mucous plugs. Hence no immediate plans to perform bronchoscopy but that's to be considered if the patient doesn't did not show improvement. WBC count is 9.7 hemoglobin is 10.2 sodium 129 potassium 4.1 renal profile is normal. Progress note dated 08/23/2023. This is a 57-year-old female who was admitted on August 19, for a right upper lobectomy, secondary to lung cancer, which was performed on August 19. Cu rrently, she is on 4 L of oxygen, and not receiving any IV fluids. The patient's chest x-rays continue to so infiltrate, likely in the RML, since there is no right upper lobe anymore. Anyway, cardiothoracic surgery would like me to do a bronchoscopy, and clearing out any secretions in the lung, which may be attributing to her abnormality. The patient is congested in the chest, and is coughing up some phlegm. White count 9.5, hemoglobin 10.3, hematocrit 30.9, the platelet count 287,000. Sodium 128, potassium 4.1, chloride 93, CO2 30, BUN 8, creatinine 0.63. Chest x-ray shows a small right apical pneumothorax, and consolidation, likely in the RML, since there is no right upper lobe. Progress note dated 08/24/2023. 57-year-old female was admitted to the hospital on August 19, for right upper lobectomy, secondary to lung cancer. Surgery was performed on August 19. Currently, she is resting comfortably in the intensive care unit. She's in room 256. She continues on oxygen at 4 L. She's not receiving any IV fluids. Yesterday, we did bronchoscopy, and BAL, to the right middle lobe. The patient does not have a right upper lobe. The BAL was sent for cytology, and microbio logy. Currently, she is doing better, and in my opinion, her chest x-ray shows improvement in the infiltrate, in the right middle lobe. Labs today include a white count of 8, hemoglobin 10.5, hematocrit 30.8, and a normal platelet count. Sodium 132, potassium 3.7, chlorides 92, CO2 34, with a normal BUN and creatinine. If fluid analysis shows significant fluid be hazy, with 73% PMNs. In my opinion, the infiltrate in the right middle lobe, is improved, and the patient has a very small right apical pneumothorax. Chest tube has been removed. Progress note dated 08/25/2023. 57-year-old female who is admitted to the hospital on August 19, status post right upper lobectomy, secondary to lung cancer. She ended up having non-small cell lung cancer, with neuroendocrine features. All the lymph nodes, that were sampled, were negative. She is seen today in room 352. She is currently on 4 L of oxygen. No IV fluids. The patient is hoping to be discharged in the near future. White count 8.7, hemoglobin 10.6, hematocrit 32.5, and platelet count 376,000. Sodium 132, potassium 4.1, chlorides 92, CO2 34, BUN 11, and creatinine 0.62. Chest x-ray is interpreted as being stable by the radiologist. Progress note dated 08/26/2023. The patient is seen today in room 352. She continues on 4 L of oxygen. No IV fluids. The patient was admitted to the hospital on August 19, and underwent a right upper lobectomy, secondary to non-small cell lung cancer. The patient's lymph nodes that were sampled, all negative for malignancy. Labs today include a white count 10.4, hemoglobin 11, hematocrit 32.5, within normal platelet count. Sodium 1:30, potassium 4.5, chlorides 90, CO2 32, BUN 11, creatinine 0.57. The patient's chest x-ray today shows an increase in the right-sided pneumothorax. There is some right-sided subcutaneous emphysema. Computed tomography scan shows a 50% hydropneumothorax on the right side, with a large area of airspace consolidation. There is pneumomediastinum, and subcutaneous emphysema. Progress note dated 08/27/2023. 57-year-old female seen in room 352. The patient is status post right upper lobectomy. She continues on oxygen at 2 L. Unfortunately, the patient developed a pneumothorax on the right, and a chest tube was placed by cardiothoracic surgery. She was admitted back on August 19, and underwent a right upper lobectomy, secondary to non-small cell lung cancer. All lymph nodes were negative. Currently, she is on 2 L as mentioned, no IV fluids. She does have a leak from the chest tube. White count 9, hemoglobin 11.8, hematocrit 35.4, and platelet count normal. Sodium 133, potassium 4.8, chlorides 90, CO2 33, BUN 13, creatinine 0.63. Chest x-ray shows a properly positioned right- sided chest tube, with expansion of the right lung, and a significant reduction in the size of the pneumothorax. Progress note dated 08/28/2023. 57-year-old female seen in room 352. The patient is status post right upper lobectomy, on August 19. Unfortunately, more recently, she developed right- sided pneumothorax, and required chest tube reinsertion. She's currently on 2 L of oxygen. No IV fluids. Chest tube is to suction. There is no obvious leak noted. Labs today include a sodium 130, potassium 4.7, chlorides 88, CO2 34, BU N 16, and creatinine 0.58. Magnesium is 1.9. Chest x-ray shows subcutaneous emphysema, and a midlung infiltrate on the right. Progress note dated 08/29/2023. 57-year-old female seen in room 352. The patient had a right upper lobectomy for lung cancer back in August 19. Unfortunately, she is sustained a right- sided pneumothorax. The patient required chest tube insertion, and is currently on 2 L of oxygen, with saturations of 92%. The chest tube is to suction. This no air leak. According to the patient, cardiothoracic surgery discussed with her, the possibility of bronchoscopy, tomorrow. Sodium 130, potassium 4.3, chloride 84, CO2 34, BUN 19, creatinine 0.65. Calcium is 8.9. Chest x-ray reveals a persistent right-sided pneumothorax, with a right midlung consolidation. There is evidence of subcutaneous emphysema. On today's evaluation of 08/30/2023, I'm seeing the patient for a follow-up. As mentioned earlier, the patient had a right upper lobe non-small cell lung cancer and the patient underwent a right upper lobectomy and mediastinal lymph node dissection. The patient continues to have difficulties with right-sided pneumothorax. This morning, the patient is on 2 L of oxygen by nasal cannula. She is using the incentive spirometer. The patient has a right-sided pigtail catheter in place. I do not appreciate any air leak. Nevertheless, the chest x-ray shows incomplete expansion of the right lung. There is a persistent pneumothorax which is moderate-sized involving the right lung. There is also a right lung consolidating opacity in the right perihilar region and evidence of subcutaneous emphysema. The patient is currently nothing by mouth. The patient is going to undergo a bronchoscopy by the cardiothoracic surgeon. This will be effective bronchoscopy. The patient will be scheduled of 12.7, hemoglobin 11.8, sodium is at 1:30, B is a 50 with a creatinine of 0.5 and a potassium level is at 3.9. The patient is hemodynamically stable. The patient remains on DuoNeb updrafts [id number] and the patient is also on accommodation Perforomist and Pulmicort neb blotchiness twice a day. She is covered empirically with Levaquin. On today's evaluation of 08/31/2023, the patient is being seen for a follow-up. Patient is doing well. The patient is currently on room air oxygen. The bronchoscopy was done yesterday and there was no evidence of any mucus or anatomic obstruction of the right middle lobe area. There was some atelectasis of the lateral segment of the right middle lobe. The right upper lobe stump was within normal limits. The patient had a follow-up chest x-ray today and the patient was found to have a D- of the right-sided pneumothorax. There was still a right apical pneumothorax present. Subcutissues also present in the right. There is some atelectatic changes in the right middle lobe area.. No significant subcutaneous emphysema on today's examination. The patient is clinically stable hemodynamically stable and the patient is currently on room air oxygen. Labs from today show edematous count 10.9, hemoglobin of 11.9 and a platelet count of 560, BUN is at 40 with a creatinine of 0.6 and the sodium level is at 132. Objective - Vital Signs Vital signs: Vital Signs Temp 98.5 F 08/31/23 08:00 Pulse 100 08/31/23 09:12 Resp 20 08/31/23 09:10 BP 117/79 08/31/23 08:00 Pulse Ox 91 L 08/31/23 09:10 FiO2 Intake & Output 08/30/23 08/31/23 08/31/23 18:59 06:59 18:59 Intake Total 200 240 Output Total 952 134 640 Balance -752 -134 -400 Weight 68.7 kg Intake: IV 200 Oral 240 Output: Chest Tube Drainage 52 134 40 Chest Tube Right 0 Chest Tube Right Lateral 52 134 40 Chest Urine 900 600 Other: Voiding Method Toilet Toilet Toilet ABP, PAP, CO, CI - Last Documented Arterial Blood Pressure 127/57 - Exam No acute distress, oriented 3. The patient's currently on room air oxygen with a pulse ox of 91% HEENT examination is grossly unremarkable. Mucous membranes are moist. No oral lesions. Neck supple. Full range of motion. No adenopathy thyromegaly or neck vein distention. Cardiovascular examination reveals regular rhythm rate. S1-S2 normal. No S3 or S4. No discernible murmur noted. Subcutaneous emphysema is noted. Lungs reveal coarse bilateral rhonchi. Minimal crackles. No wheezes. Breath sounds equal bilaterally. The patient has a right-sided chest tube and there is no evidence of any air leak and the right-sided chest tube is attached to waterseal. Abdomen soft bowel sounds are heard. No masses or tenderness. Extremities are intact. No cyanosis clubbing or edema. Skin is without rash or lesion. Neurologic examination is brief but nonfocal. - Labs CBC & Chem 7: 08/31/23 06:29 08/31/23 06:29 Labs: Abnormal Lab Results - Last 24 Hours (Table) 08/31/23 08/31/23 Range/Units 06:29 06:29 WBC 10.9 H (3.8-10.6) k/uL Plt Count 560 H (150-450) k/uL Sodium 132 L (137-145) mmol/L Chloride 87 L (98-107) mmol/L Carbon Dioxide 35 H (22-30) mmol/L Assessment and Plan Plan: Status post right upper lobectomy, for non-small cell lung cancer, postop day # 12 Status post mediastinal lymph node dissection, postop day # 12. All nodes negative. Status post bronchoscopy, 08/23/2023, with BAL to the right middle lobe. A repeat bronchoscopy was done on 08/30/2023. The right upper lobe stump was within normal limits. There was some atelectatic changes in the lateral segment of the right middle lobe. No mucus. No endobronchial tumor. Postoperative right, 10% pneumothorax on the right with limited subcutaneous emphysema. A right-sided chest tube and placed in no evidence of any air leak. Hyponatremia, secondary to SIADH. Mild COPD with an FEV1 that's 87% of predicted. Dyslipidemia. Chronic cough. DJD. Tobacco dependence syndrome. Plan: Small right-sided pneumothorax no evidence of any air leak. Status post insertion of another chest tube in the right lung. Right-sided chest tube essentially waterseal Bronchoscopy was performed and there is no anatomic obstruction and there is some atelectatic changes in the right middle lobe Continue using incentive spirometer We'll coordinate care along with the cardiothoracic team. Patient is currently on room air oxygen We'll continue to follow Continue using the senna spirometer and will continue to follow.
[2023-09-01] MEDS: HEPARIN SODIUM,PORCINE 5,000 UNIT/ML 1 ML VIAL SQ SCH ×4 (00:46→22:51)
[2023-09-01] MEDS: ACETAMINOPHEN TAB 500 MG TAB PO PRN (06:33)
[2023-09-01] MEDS: PANTOPRAZOLE 40 MG TABLET PO SCH ×2 (06:34→16:35)
--- NOTE | 2023-09-01 07:46 | XR ---
EXAMINATION TYPE: XR chest 2V DATE OF EXAM: 09/01/2023 COMPARISON: 08/11/2023 INDICATION: Pneumothorax TECHNIQUE: Single frontal view of the chest is obtained. FINDINGS: The heart size is normal. The pulmonary vasculature is normal. There is fullness to the right hilar region. There is surgical suture at the right apex. Increasing right apical pneumothorax is present. Right b asilar chest tube remains present. Emphysematous changes are within the lateral right thorax. IMPRESSION: 1. Increasing right apical pneumothorax. Right-sided chest tube remains stable in position. 2. Underlying right hilar mass.
[2023-09-01] MEDS: FORMOTEROL FUMARATE 20 MCG/2 ML NEBU INHALATION SCH ×2 (07:52→20:58)
[2023-09-01] MEDS: ACETYLCYSTEINE 800 MG/4 ML VIAL INHALATION SCH ×3 (07:52→20:57)
[2023-09-01] MEDS: IPRATROPIUM-ALBUTEROL 3 ML NEB IH SCH ×4 (07:52→20:58)
[2023-09-01] MEDS: traMADol 50 MG TAB PO SCH ×4 (08:16→22:50)
[2023-09-01] MEDS: polyethylene glycoL 3350 17 GM POWD.PACK PO SCH (08:16)
[2023-09-01] MEDS: LEVOFLOXACIN 500MG-D5W PMX 500 MG in DEXTROSE/WATER 1 100ML.BAG IVPB SCH (08:16)
[2023-09-01] MEDS: guaiFENesin 600 MG TABLET.ER PO SCH ×2 (08:17→22:50)
[2023-09-01] MEDS: ATORVASTATIN 40 MG TAB PO SCH (08:17)
[2023-09-01] MEDS: SENNOSIDES-DOCUSATE SODIUM 1 EACH TAB PO SCH ×2 (08:17→22:50)
[2023-09-01 08:59] LABS: HCT 34.8 % (34.0-46.0); HGB 11.5 gm/dL (11.4-16.0); MCH 28.9 pg (25.0-35.0); MCHC 33.1 g/dL (31.0-37.0); MCV 87.3 fL (80.0-100.0); Platelet Count 523 k/uL (150-450); RBC 3.98 m/uL (3.80-5.40); RDW 12.8 % (11.5-15.5); WBC 11.7 k/uL (3.8-10.6)
[2023-09-01 10:19] LABS: African American GFR (CKD) >90 (>60 ml/min/1.73 sqM); Anion Gap 11 mmol/L; Blood Urea Nitrogen 15 mg/dL (7-17); Calcium 8.8 mg/dL (8.4-10.2); Carbon Dioxide 29 mmol/L (22-30); Chloride 91 mmol/L (98-107); Glucose 108 mg/dL (74-99); Non-African American GFR(CKD) >90 (>60 ml/min/1.73 sqM); Sodium 131 mmol/L (137-145)
[2023-09-01 10:31] LABS: Potassium 4.1 mmol/L (3.5-5.1)
--- NOTE | 2023-09-01 10:51 | P.PN ---
Subjective Progress Note Date: 09/01/23 Principal diagnosis: Right upper lobe non-small cell lung cancer with neuroendocrine features. Past medical history significant for COPD with preoperative FEV1 87% of predicted va lue and a DLCO 55% of predicted value, asthma, diverticulitis, hyperlipidemia, GERD, osteoarthritis, and chronic ongoing tobacco dependence, recently quit smoking. POD #13 bronchoscopy, right robotic assisted thoracoscopic surgery with right upper lobectomy, mediastinal lymph node dissection, intercostal nerve block 3 levels. Hyponatremia, secondary to SIADH which is common with cancer Postoperative hydropneumothorax, expected complication due to the type of surgery POD #[address] Flaherty, right-sided thoracostomy tube placed The patient was seen and examined this morning sitting up in a recliner in the cardiac stepdown unit in no acute distress. States pain is controlled on current medication regimen, denies shortness of breath. Has remained on 2 L nasal cannula since surgery yesterday although oxygen saturation in the very high 90s and likely does not need oxygen. Right pleural chest tube present to continuous wall suction, 67 mL serosanguineous drainage overnight, 150 mL since surgery, no air leak present currently. Chest x-ray reviewed with Dr. Flaherty. Objective - Vital Signs Vital signs: Vital Signs Temp 98.0 F 09/01/23 04:00 Pulse 96 09/01/23 04:00 Resp 17 09/01/23 04:00 BP 109/62 09/01/23 04:00 Pulse Ox 91 L 09/01/23 04:00 FiO2 21 08/31/23 20:45 Intake & Output 08/31/23 09/01/23 09/01/23 18:59 06:59 18:59 Intake Total 480 Output Total 1050 21 Balance -570 -21 Intake: Oral 480 Output: Chest Tube Drainage 75 21 Chest Tube Right Lateral 75 21 Chest Urine 975 Other: Voiding Method Toilet Toilet # Voids 2 ABP, PAP, CO, CI - Last Documented Arterial Blood Pressure 127/57 - Exam CONSTITUTIONAL: Appears comfortable, cooperative, no acute distress RESPIRATORY: Lungs sounds diminished bilaterally. Respirations even, nonlabored. Currently on room air with oxygen saturation 91%. Able to achieve 1000 mL on incentive spirometry. Strong cough. CARDIOVASCULAR: S1, S2 present. Regular rate and rhythm, sinus rhythm on telemetry. Palpable peripheral pulses bilaterally. No edema present. No calf pain or tenderness noted. SCDs present. GASTROINTESTINAL: Abdomen soft, nontender, nondistended. Active bowel sounds present 4 quadrants. Tolerating diet. Positive flatus, no bowel movement this surgery GENITOURINARY: Continues to void INTEGUMENTARY: Skin is warm and dry NEUROLOGIC: Cranial nerves II through XII intact MUSKULOSKELETAL: Able to move all extremities, strength equal bilaterally, gait normal PSYCHIATRIC: Alert and oriented to person place and time, appropriate affect, intact judgment and insight INVASIVE LINES AND TUBES: Right pleural chest tube present to water seal, no air leaks present, 20 mL serosanguineous drainage overnight, 100 mL in the last 24 hours - Allied health notes Allied health notes reviewed: nursing - Labs CBC & Chem 7: 09/01/23 08:25 09/01/23 08:25 Labs: Abnormal Lab Results - Last 24 Hours (Table) 08/31/23 08/31/23 Range/Units 06:29 06:29 WBC 10.9 H (3.8-10.6) k/uL Plt Count 560 H (150-450) k/uL Sodium 132 L (137-145) mmol/L Chloride 87 L (98-107) mmol/L Carbon Dioxide 35 H (22-30) mmol/L - Imaging and Cardiology Chest x-ray: image reviewed Assessment and Plan Assessment: Right upper lobe non-small cell lung cancer with neuroendocrine features, status post bronchoscopy, right robotic assisted thoracoscopic right upper lobectomy, mediastinal lymph node dissection COPD with preoperative FEV1 87% of predicted value and a DLCO 55% of predicted value Chronic tobacco dependence with recent cessation Asthma Diverticulitis Hyperlipidemia GERD Osteoarthritis Hyponatremia, secondary to SIADH which is common with cancer Postoperative hydropneumothorax, expected complication due to the type of surgery, status post bronchoscopy performed with Dr. Flaherty, right-sided thoracostomy tube placed Plan: Chest tube discontinued without incident Continue Mucinex 1200 mg by mouth twice a day as well as Mucomyst 200 mg inhalation 3 times a day. Chest physiotherapy every 4 hours. Levaquin started prophylactically, treat for 5 days Encourage incentive spirometry is 10 times every hour while awake. [facility] hodilators per pulmonology Will monitor daily chest x-rays and labs. Continue to encourage Flutter valve ordered by pulmonary critical care service. Increase activity as tolerated. Out of bed for all meals. GI/DVT prophylaxis. Pain control with current medication regimen. More recommendations to follow based on patient's clinical course.
--- NOTE | 2023-09-01 14:18 | P.PN ---
Subjective Progress Note Date: 09/01/23 Status post right upper lobectomy. This is a 57-year-old female, known history of tobacco dependence syndrome, patient saw me in the office for chronic cough. Chest x-ray in the office showed right upper lobe mass further workup including CT of the chest and PET scan showed 5.6 cm mass in the right upper lobe with hypermetabolic activity noted on the PET scan with SUV of 9.88, no evidence at the time of any further metastatic disease. 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 Patient at that time had mostly symptoms of chronic cough but no other constitutional symptoms. Patient was referred to Dr. Espino, and she underwent right robotic-assisted thoracoscopic surgery with right upper lobectomy and mediastinal lymph node dissection. Postoperatively patient was sent to the ICU she was extubated in the recovery room, and I was asked to see her on consultation this morning. Patient seems to be doing well, relatively asymptomatic, chest x-ray showed a small right-sided pneumothorax, chest tube remains in place, and she has some haziness in the right upper lung kaba. Ch est tube is connected to suction and that being addressed by surgery on the case labs this morning showed a slightly low sodium of 129 her WCL is 10.3 hemoglobin 11.7, patient is on 2 L nasal cannula with O2 sat of 97% and she is hemodynamically stable Patient was reevaluated today on 08/21/2023, patient remains in the ICU as an overflow, she seems to be comfortable, not in any distress, she is on 4 L nasal cannula. Chest x-ray continues to show pneumothorax of the right apex, and now she is developing more atelectatic changes in the right upper lung field. Patient apparently has some mucus plugging and she is having difficulty clearing her mucous plugs and secretions. She will be placed on Mucomyst, he is receiving updrafts, and she was instructed on aggressive use of her incentive sp irometer. She is also on updrafts. Patient developed also hyponatremia, did not improve much with fluids yesterday, hence I believe it is most likely SIADH picture and now I'm recommending fluid restriction and demeclocycline Reevaluated today 08/22/2023, patient remains in the ICU, she is basically an overflow, doing quite well, she is not in any distress. She is on 3 L nasal cannula, her chest x-ray continues to show some atelectasis in upper lung kaba, continues to have a small right-sided pneumothorax continues to have a small air leak. Patient is improving with demeclocycline and her sodium is improving. She is also improving with Mucinex, able to cough up some mucous plugs. Hence no immediate plans to perform bronchoscopy but that's to be considered if the patient doesn't did not show improvement. WBC count is 9.7 hemoglobin is 10.2 sodium 129 potassium 4.1 renal profile is normal. Progress note dated 08/23/2023. This is a 57-year-old female who was admitted on August 19, for a right upper lobectomy, secondary to lung cancer, which was performed on August 19. Cu rrently, she is on 4 L of oxygen, and not receiving any IV fluids. The patient's chest x-rays continue to so infiltrate, likely in the RML, since there is no right upper lobe anymore. Anyway, cardiothoracic surgery would like me to do a bronchoscopy, and clearing out any secretions in the lung, which may be attributing to her abnormality. The patient is congested in the chest, and is coughing up some phlegm. White count 9.5, hemoglobin 10.3, hematocrit 30.9, the platelet count 287,000. Sodium 128, potassium 4.1, chloride 93, CO2 30, BUN 8, creatinine 0.63. Chest x-ray shows a small right apical pneumothorax, and consolidation, likely in the RML, since there is no right upper lobe. Progress note dated 08/24/2023. 57-year-old female was admitted to the hospital on August 19, for right upper lobectomy, secondary to lung cancer. Surgery was performed on August 19. Currently, she is resting comfortably in the intensive care unit. She's in room 256. She continues on oxygen at 4 L. She's not receiving any IV fluids. Yesterday, we did bronchoscopy, and BAL, to the right middle lobe. The patient does not have a right upper lobe. The BAL was sent for cytology, and microbio logy. Currently, she is doing better, and in my opinion, her chest x-ray shows improvement in the infiltrate, in the right middle lobe. Labs today include a white count of 8, hemoglobin 10.5, hematocrit 30.8, and a normal platelet count. Sodium 132, potassium 3.7, chlorides 92, CO2 34, with a normal BUN and creatinine. If fluid analysis shows significant fluid be hazy, with 73% PMNs. In my opinion, the infiltrate in the right middle lobe, is improved, and the patient has a very small right apical pneumothorax. Chest tube has been removed. Progress note dated 08/25/2023. 57-year-old female who is admitted to the hospital on August 19, status post right upper lobectomy, secondary to lung cancer. She ended up having non-small cell lung cancer, with neuroendocrine features. All the lymph nodes, that were sampled, were negative. She is seen today in room 352. She is currently on 4 L of oxygen. No IV fluids. The patient is hoping to be discharged in the near future. White count 8.7, hemoglobin 10.6, hematocrit 32.5, and platelet count 376,000. Sodium 132, potassium 4.1, chlorides 92, CO2 34, BUN 11, and creatinine 0.62. Chest x-ray is interpreted as being stable by the radiologist. Progress note dated 08/26/2023. The patient is seen today in room 352. She continues on 4 L of oxygen. No IV fluids. The patient was admitted to the hospital on August 19, and underwent a right upper lobectomy, secondary to non-small cell lung cancer. The patient's lymph nodes that were sampled, all negative for malignancy. Labs today include a white count 10.4, hemoglobin 11, hematocrit 32.5, within normal platelet count. Sodium 1:30, potassium 4.5, chlorides 90, CO2 32, BUN 11, creatinine 0.57. The patient's chest x-ray today shows an increase in the right-sided pneumothorax. There is some right-sided subcutaneous emphysema. Computed tomography scan shows a 50% hydropneumothorax on the right side, with a large area of airspace consolidation. There is pneumomediastinum, and subcutaneous emphysema. Progress note dated 08/27/2023. 57-year-old female seen in room 352. The patient is status post right upper lobectomy. She continues on oxygen at 2 L. Unfortunately, the patient developed a pneumothorax on the right, and a chest tube was placed by cardiothoracic surgery. She was admitted back on August 19, and underwent a right upper lobectomy, secondary to non-small cell lung cancer. All lymph nodes were negative. Currently, she is on 2 L as mentioned, no IV fluids. She does have a leak from the chest tube. White count 9, hemoglobin 11.8, hematocrit 35.4, and platelet count normal. Sodium 133, potassium 4.8, chlorides 90, CO2 33, BUN 13, creatinine 0.63. Chest x-ray shows a properly positioned right- sided chest tube, with expansion of the right lung, and a significant reduction in the size of the pneumothorax. Progress note dated 08/28/2023. 57-year-old female seen in room 352. The patient is status post right upper lobectomy, on August 19. Unfortunately, more recently, she developed right- sided pneumothorax, and required chest tube reinsertion. She's currently on 2 L of oxygen. No IV fluids. Chest tube is to suction. There is no obvious leak noted. Labs today include a sodium 130, potassium 4.7, chlorides 88, CO2 34, BU N 16, and creatinine 0.58. Magnesium is 1.9. Chest x-ray shows subcutaneous emphysema, and a midlung infiltrate on the right. Progress note dated 08/29/2023. 57-year-old female seen in room 352. The patient had a right upper lobectomy for lung cancer back in August 19. Unfortunately, she is sustained a right- sided pneumothorax. The patient required chest tube insertion, and is currently on 2 L of oxygen, with saturations of 92%. The chest tube is to suction. This no air leak. According to the patient, cardiothoracic surgery discussed with her, the possibility of bronchoscopy, tomorrow. Sodium 130, potassium 4.3, chloride 84, CO2 34, BUN 19, creatinine 0.65. Calcium is 8.9. Chest x-ray reveals a persistent right-sided pneumothorax, with a right midlung consolidation. There is evidence of subcutaneous emphysema. On today's evaluation of 08/30/2023, I'm seeing the patient for a follow-up. As mentioned earlier, the patient had a right upper lobe non-small cell lung cancer and the patient underwent a right upper lobectomy and mediastinal lymph node dissection. The patient continues to have difficulties with right-sided pneumothorax. This morning, the patient is on 2 L of oxygen by nasal cannula. She is using the incentive spirometer. The patient has a right-sided pigtail catheter in place. I do not appreciate any air leak. Nevertheless, the chest x-ray shows incomplete expansion of the right lung. There is a persistent pneumothorax which is moderate-sized involving the right lung. There is also a right lung consolidating opacity in the right perihilar region and evidence of subcutaneous emphysema. The patient is currently nothing by mouth. The patient is going to undergo a bronchoscopy by the cardiothoracic surgeon. This will be effective bronchoscopy. The patient will be scheduled of 12.7, hemoglobin 11.8, sodium is at 1:30, B is a 50 with a creatinine of 0.5 and a potassium level is at 3.9. The patient is hemodynamically stable. The patient remains on DuoNeb updrafts [id number] and the patient is also on accommodation Perforomist and Pulmicort neb blotchiness twice a day. She is covered empirically with Levaquin. On today's evaluation of 08/31/2023, the patient is being seen for a follow-up. Patient is doing well. The patient is currently on room air oxygen. The bronchoscopy was done yesterday and there was no evidence of any mucus or anatomic obstruction of the right middle lobe area. There was some atelectasis of the lateral segment of the right middle lobe. The right upper lobe stump was within normal limits. The patient had a follow-up chest x-ray today and the patient was found to have a D- of the right-sided pneumothorax. There was still a right apical pneumothorax present. Subcutissues also present in the right. There is some atelectatic changes in the right middle lobe area.. No significant subcutaneous emphysema on today's examination. The patient is clinically stable hemodynamically stable and the patient is currently on room air oxygen. Labs from today show edematous count 10.9, hemoglobin of 11.9 and a platelet count of 560, BUN is at 40 with a creatinine of 0.6 and the sodium level is at 132. On today's evaluation of 09/01/2023, I'm seeing the patient for a follow-up. The output from the right-sided chest tube is a minimal in terms of fluid and there is no evidence of any air leak. The patient is stable right apical pneumothorax on today's chest x-ray. Basal discussed with cardiothoracic team and the patient has been essentially stable. As such, the right-sided chest t ube was removed. The patient is ambulating. The patient is not having any major respiratory difficulties. The patient continues to use incentive spirometer. On today's evaluation, she is only on 2 L with a pulse ox of 94%. The white cell count 11.7, hemoglobin 11.5, platelet count is at 523, BUN is a 50 with a creatinine of 0.6 and a sodium level is at 131. She'll be kept in hospital for monitoring for another 24 hours. Objective - Vital Signs Vital signs: Vital Signs Temp 98.1 F 09/01/23 08:00 Pulse 90 09/01/23 08:14 Resp 16 09/01/23 08:00 BP 134/62 09/01/23 08:00 Pulse Ox 98 09/01/23 08:00 FiO2 21 09/01/23 07:52 Intake & Output 08/31/23 09/01/23 09/01/23 18:59 06:59 18:59 Intake Total 480 0 Output Total 1050 21 450 Balance -570 -21 -450 Intake: Oral 480 0 Output: Chest Tube Drainage 75 21 Chest Tube Right Lateral 75 21 Chest Urine 975 450 Other: Voiding Method Toilet Toilet # Voids 2 ABP, PAP, CO, CI - Last Documented Arterial Blood Pressure 127/57 - Exam No acute distress, oriented 3. The patient's currently on 2 L of oxygen by nasal cannula with a pulse ox of 94% HEENT examination is grossly unremarkable. Mucous membranes are moist. No oral lesions. Neck supple. Full range of motion. No adenopathy thyromegaly or neck vein distention. Cardiovascular examination reveals regular rhythm rate. S1-S2 normal. No S3 or S4. No discernible murmur noted. Subcutaneous emphysema is noted. Lungs reveal coarse bilateral rhonchi. Minimal crackles. No wheezes. Breath sounds equal bilaterally. The patient has a right-sided chest tube was removed Abdomen soft bowel sounds are heard. No masses or tenderness. Extremities are intact. No cyanosis clubbing or edema. Skin is without rash or lesion. Neurologic examination is brief but nonfocal. - Labs CBC & Chem 7: 09/01/23 08:25 09/01/23 08:25 Labs: Abnormal Lab Results - Last 24 Hours (Table) 09/01/23 09/01/23 Range/Units 08:25 08:25 WBC 11.7 H (3.8-10.6) k/uL Plt Count 523 H (150-450) k/uL Sodium 131 L (137-145) mmol/L Chloride 91 L (98-107) mmol/L Glucose 108 H (74-99) mg/dL Assessment and Plan Plan: Status post right upper lobectomy, for non-small cell lung cancer, postop day # 13 Status post mediastinal lymph node dissection, postop day # 13 All nodes negative. Status post bronchoscopy, 08/23/2023, with BAL to the right middle lobe. A repeat bronchoscopy was done on 08/30/2023. The right upper lobe stump was within normal limits. There was some atelectatic changes in the lateral segment of the right middle lobe. No mucus. No endobronchial tumor. Postoperative right, 10% pneumothorax on the right with limited subcutaneous emphysema. A right-sided chest tube and placed in no evidence of any air leak. Based on today's evaluation and based on the stability of the right-sided pneumothorax, the right-sided chest tube is removed. No evidence of any air leak. Hyponatremia, secondary to SIADH. Mild COPD with an FEV1 that's 87% of predicted. Dyslipidemia. Chronic cough. DJD. Tobacco dependence syndrome. Plan: Right-sided chest tube is removed Repeat chest x-ray in the morning Bronchoscopy was performed and there is no anatomic obstruction and there is some atelectatic changes in the right middle lobe Continue using incentive spirometer We'll coordinate care along with the cardiothoracic team. Patient is currently on 2 L of oxygen by nasal cannula. We'll wean down FiO2 We'll continue to follow Continue using the senna spirometer and will continue to follow.
[2023-09-02] MEDS: PANTOPRAZOLE 40 MG TABLET PO SCH (06:38)
[2023-09-02] MEDS ORDERED: IBUPROFEN 600 MG TAB PO PRN (06:50)
--- NOTE | 2023-09-02 07:48 | XR ---
EXAMINATION TYPE: XR chest 2V DATE OF EXAM: 09/02/2023 6:17 AM CLINICAL INDICATION:Female, 57 years old with history of post chest tube removal; [facility] COMPARISON: Chest radiographs from 09/01/2023r TECHNIQUE: XR chest 2V Frontal and lateral views of the chest. FINDINGS: Lungs/Pleura: Small right apical pneumothorax There is no evidence of pleural effusion, focal consoli dation, or left pneumothorax. Pulmonary vascularity: Unremarkable. Heart/mediastinum: Cardiomediastinal silhouette is unremarkable. Musculoskeletal: No acute osseous pathology. Other findings: None Lines/Tubes: IMPRESSION: Persistent right apical pneumothorax with right chest wall subcutaneous emphysema.
[2023-09-02 08:05] VITALS: RESP 16
[2023-09-02] MEDS: IPRATROPIUM-ALBUTEROL 3 ML NEB IH SCH ×2 (08:28→11:12)
[2023-09-02] MEDS: ACETYLCYSTEINE 800 MG/4 ML VIAL INHALATION SCH ×2 (08:28→11:14)
[2023-09-02] MEDS: FORMOTEROL FUMARATE 20 MCG/2 ML NEBU INHALATION SCH (08:28)
--- NOTE | 2023-09-02 08:39 | P.PN ---
Subjective Progress Note Date: 09/02/23 Principal diagnosis: Right upper lobe non-small cell lung cancer with neuroendocrine features. Past medical history significant for COPD with preoperative FEV1 87% of predicted va lue and a DLCO 55% of predicted value, asthma, diverticulitis, hyperlipidemia, GERD, osteoarthritis, and chronic ongoing tobacco dependence, recently quit smoking. POD #14 bronchoscopy, right robotic assisted thoracoscopic surgery with right upper lobectomy, mediastinal lymph node dissection, intercostal nerve block 3 levels. Hyponatremia, secondary to SIADH which is common with cancer Postoperative hydropneumothorax, expected complication due to the type of surgery POD #[address] Flaherty, right-sided thoracostomy tube placed The patient was seen and examined this morning sitting up in bed on the cardiac stepdown unit in no acute distress. States pain is controlled on current medication regimen, denies shortness of breath, continues to have chronic cough. Was on 2 LPM NC overnight, when off oxygen her oxygen she dips into the mid 80s. Right pleural chest tube discontinued yesterday, pneumothorax still present as expected but stable. Still no bowel movement since surgery, denies nausea/abd pain, passing flatus, tolerating diet. Objective - Vital Signs Vital signs: Vital Signs Temp 97.9 F 09/02/23 07:35 Pulse 88 09/02/23 08:28 Resp 16 09/02/23 07:35 BP 114/65 09/02/23 07:35 Pulse Ox 92 L 09/02/23 07:35 FiO2 21 09/01/23 07:52 Intake & Output 09/01/23 09/02/23 09/02/23 18:59 06:59 18:59 Intake Total 705 Output Total 450 Balance 255 Intake: Oral 705 Output: Urine 450 Other: Voiding Method Toilet # Voids 1 ABP, PAP, CO, CI - Last Documented Arterial Blood Pressure 127/57 - Exam CONSTITUTIONAL: Appears comfortable, cooperative, no acute distress RESPIRATORY: Lungs sounds diminished bilaterally. Respirations even, nonlabored. Currently on 2 LPM NC with oxygen saturation 94%. Able to achieve 1000 mL on incentive spirometry. Strong cough. CARDIOVASCULAR: S1, S2 present. Regular rate and rhythm, sinus rhythm on telemetry. Palpable peripheral pulses bilaterally. No edema present. No calf pain or tenderness noted. SCDs present. GASTROINTESTINAL: Abdomen soft, nontender, nondistended. Active bowel sounds present 4 quadrants. Tolerating diet. Positive flatus, no bowel movement this surgery GENITOURINARY: Continues to void INTEGUMENTARY: Skin is warm and dry NEUROLOGIC: Cranial nerves II through XII intact MUSKULOSKELETAL: Able to move all extremities, strength equal bilaterally, gait normal PSYCHIATRIC: Alert and oriented to person place and time, appropriate affect, intact judgment and insight - Allied health notes Allied health notes reviewed: nursing - Labs CBC & Chem 7: 09/01/23 08:25 09/01/23 08:25 Labs: Abnormal Lab Results - Last 24 Hours (Table) 09/01/23 09/01/23 Range/Units 08:25 08:25 WBC 11.7 H (3.8-10.6) k/uL Plt Count 523 H (150-450) k/uL Sodium 131 L (137-145) mmol/L Chloride 91 L (98-107) mmol/L Glucose 108 H (74-99) mg/dL - Imaging and Cardiology Chest x-ray: report reviewed, image reviewed Assessment and Plan Assessment: Right upper lobe non-small cell lung cancer with neuroendocrine features, status post bronchoscopy, right robotic assisted thoracoscopic right upper lobectomy, mediastinal lymph node dissection COPD with preoperative FEV1 87% of predicted value and a DLCO 55% of predicted value Chronic tobacco dependence with recent cessation Asthma Diverticulitis Hyperlipidemia GERD Osteoarthritis Hyponatremia, secondary to SIADH which is common with cancer Postoperative hydropneumothorax, expected complication due to the type of surgery, status post bronchoscopy performed with Dr. Flaherty, right-sided thoracostomy tube placed Plan: Will do home oxygen test, anticipate patient needing to go home on oxygen for a short time related to lung cancer, COPD Continue Mucinex 1200 mg by mouth twice a day Levaquin started prophylactically, treat for 5 days Encourage incentive spirometry is 10 times every hour while awake. B ronchodilators per pulmonology-patient requesting nebulizer for home Will monitor daily chest x-rays and labs. Continue to encourage Flutter valve ordered by pulmonary critical care service. Increase activity as tolerated. Out of bed for all meals. GI/DVT prophylaxis. Pain control with current medication regimen. Suppository today Discharge planning in progress, anticipate discharge to home once oxygen/nebulizer set up and patient has had a bowel movement, hopefully today More recommendations to follow based on patient's clinical course.
[2023-09-02] MEDS: LEVOFLOXACIN 500MG-D5W PMX 500 MG in DEXTROSE/WATER 1 100ML.BAG IVPB SCH (09:08)
[2023-09-02] MEDS: HEPARIN SODIUM,PORCINE 5,000 UNIT/ML 1 ML VIAL SQ SCH (09:24)
[2023-09-02] MEDS: guaiFENesin 600 MG TABLET.ER PO SCH (09:25)
[2023-09-02] MEDS: ATORVASTATIN 40 MG TAB PO SCH (09:26)
[2023-09-02] MEDS: polyethylene glycoL 3350 17 GM POWD.PACK PO SCH (09:26)
[2023-09-02] MEDS: SENNOSIDES-DOCUSATE SODIUM 1 EACH TAB PO SCH (09:26)
[2023-09-02 12:32] VITALS: BP 110/68; PULSE 102; TEMP 97.1
--- NOTE | 2023-09-02 14:47 | P.DS ---
Providers Date of admission: 08/19/23 09:39 Expected date of discharge: 09/02/23 Attending physician: Osbaldo Espino MD Consults: 08/19/23 17:56 Consult Physician Routine Consulting Provider: Mateo Davey Consult Reason/Comments: pulmonary managment Do you want consulting provider notified?: Yes Primary care physician: Jair Griffin [facility] Course: FINAL DIAGNOSIS: 1. 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 COPD, preoperative FEV1 87% of predicted, DLCO 55% of predicted 3. Chronic tobacco dependence with recent cessation 4. Asthma 5. Diverticulitis 6. Hyperlipidemia 7. GERD 8. Osteoarthritis 9. Hyponatremia, secondary to SIADH which is common with cancer 10. Postoperative hydropneumothorax, expected complication due to type of surgery PRINCIPAL PROCEDURE: 1. Bronchoscopy, robotic assisted thoracoscopic surgery with right upper lobectomy, mediastinal lymph node dissection, intercostal nerve block at 3 levels 2. Repeat bronchoscopy with placement of right-sided thoracostomy tube performed with Dr. Flaherty HISTORY OF PRESENT ILLNESS: This is a 57-year-old female patient who follows outpatient with Dr. Griffin for primary care and Dr. Davey for pulmonology. The patient reportedly had a chronic cough for years and her primary care physician sent her to Dr. Davey for consultation. A chest x-ray was ordered revealing a right lung mass. Subsequently a PET/CT was obtained which revealed 5.6 cm FDG avid mass in the right upper lobe with SUV 9.88 without evidence of metastatic disease. She underwent biopsy of the mass by Dr. Flaherty which revealed poorly differentiated non-small cell carcinoma with neuroendocrine features. The patient was referred to Dr. Espino from thoracic surgery. She was recommended to undergo right upper lobectomy. The usual perioperative course was discussed in detail with the patient and her family, all risks and benefits were explained, all questions were answered, and consent was obtained to proceed with surgery. She was scheduled for surgery at the earliest possible date after cardiac clearance and brain MRI to rule out metastasis. HOSPITAL COURSE: The patient was brought to the hospital on 08/19/23, taken to the preoperative area, prepared in the usual fashion, and subsequently taken to the operating room where Dr. Espino performed a robotic-assisted thoracoscopic right upper lobectomy. Upon completion of surgery the patient extubated and transferred to the intensive care unit where she was recovered and monitored hemodynamically. She was transferred to [facility] cardiac stepdown unit once a bed became available for further monitoring and rehabilitation. She did have a postoperative hydropneumothorax requiring repeat bronchoscopy and placement of a right-sided thoracostomy tube which was able to be discontinued on POD #13. Her oxygen was titrated down although she still required 2 L nasal cannula oxygen at discharge, she was tolerating oral diet, her pain was controlled, and she was ready to be discharged to home on postoperative day #14. She received written and verbal instruction regarding her medications, activity restrictions, signs and symptoms requiring physician notification, and follow-up appointments. Patient Condition at Discharge: Stable Plan - Discharge Summary Discharge Rx Participant: No New Discharge Prescriptions: New Ipratropium-Albuterol Nebulize [Duoneb 0.5 mg-3 mg/3 ml Soln] 3 ml IH RT-QID 30 Days #120 each guaiFENesin [Mucinex] 1,200 mg PO Q12HR #60 tab Acetaminophen Tab [Tylenol] 1,000 mg PO Q6HR PRN tab PRN Reason: Fever And/ Or Pain polyethylene glycoL 3350 [Miralax] 17 gm PO DAILY #14 packet Ibuprofen [Motrin] 600 mg PO QID PRN tab PRN Reason: Pain Sennosides-Docusate Sodium [Senokot-S] 1 each PO BID #14 tab Continue Cetirizine HCl [Zyrtec] 10 mg PO Q2D Omeprazole [PriLOSEC] 10 mg PO BID Montelukast [Singulair] 10 mg PO HS Fluticasone/Umeclidin/Vilanter [Trelegy Ellipta 200-62.5-25] 1 puff INHALATION DAILY Albuterol Inhaler [Ventolin Hfa Inhaler] 2 puff INHALATION Q6H PRN PRN Reason: Shortness Of Breath Pravastatin Sodium [Pravachol] 10 mg PO HS Discharge Medication List Cetirizine HCl [Zyrtec] 10 mg PO Q2D 07/06/23 [History] Fluticasone/Umeclidin/Vilanter [Trelegy Ellipta 200-62.5-25] 1 puff INHALATION DAILY 07/06/23 [History] Montelukast [Singulair] 10 mg PO HS 07/06/23 [History] Omeprazole [PriLOSEC] 10 mg PO BID 07/06/23 [History] Pravastatin Sodium [Pravachol] 10 mg PO HS 07/06/23 [History] Albuterol Inhaler [Ventolin Hfa Inhaler] 2 puff INHALATION Q6H PRN 08/13/23 [ History] Acetaminophen Tab [Tylenol] 1,000 mg PO Q6HR PRN tab 09/02/23 [Rx] Ibuprofen [Motrin] 600 mg PO QID PRN tab 09/02/23 [Rx] Ipratropium-Albuterol Nebulize [Duoneb 0.5 mg-3 mg/3 ml Soln] 3 ml IH RT-QID 30 Days #120 each 09/02/23 [Rx] Sennosides-Docusate Sodium [Senokot-S] 1 each PO BID #14 tab 09/02/23 [Rx] guaiFENesin [Mucinex] 1,200 mg PO Q12HR #60 tab 09/02/23 [Rx] polyethylene glycoL 3350 [Miralax] 17 gm PO DAILY #14 packet 09/02/23 [Rx] Follow up Appointment(s)/Referral(s): Mateo Davey MD [STAFF PHYSICIAN] - 09/23/23 8:30 am Jair Griffin [Primary Care Provider] - As Needed Osbaldo Espino MD [STAFF PHYSICIAN] - 09/17/23 10:00 am Ambulatory/Diagnostic Orders: XR chest 2V [RAD.AMB] Facility: [facility], Location: [facility] Activity/Diet/Wound Care/Special Instructions: DISCHARGE INSTRUCTIONS: 1. No driving for 2 weeks, or until physician gives their ok. 2. No lifting, pushing, or pulling more than 10 pounds for 2 weeks. The physician will advise of any restriction changes. 3. Continue pain control per as needed orders. Alternate acetaminophen (Tylenol) and ibuprofen (Motrin/Advil) for pain. 4. Continue with incentive spirometry and splinting until otherwise directed by the physician. 5. Leave chest tube dressing for 48 hours. After that, remove all dressings and shower daily. 6. Routine incision care. No powders, lotions, ointments on incisions. 7. Please call surgeon/PARENT PARTNER for temp greater than 101 F or purulent drainage from incisions. 8. Smoking cessation counseling and program information provided. Quitting smoking is the most important step you can take to improve your health. For additional information and assistance to quit smoking, please call the [place] tobacco quit line (1-043-ENYA-NOW/ ) or online: [email or web address] Discharge Disposition: HOME SELF-CARE
--- NOTE | 2023-09-02 17:53 | P.PN ---
Subjective Progress Note Date: 09/02/23 Status post right upper lobectomy. This is a 57-year-old female, known history of tobacco dependence syndrome, patient saw me in the office for chronic cough. Chest x-ray in the office showed right upper lobe mass further workup including CT of the chest and PET scan showed 5.6 cm mass in the right upper lobe with hypermetabolic activity noted on the PET scan with SUV of 9.88, no evidence at the time of any further metastatic disease. 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 Patient at that time had mostly symptoms of chronic cough but no other constitutional symptoms. Patient was referred to Dr. Espino, and she underwent right robotic-assisted thoracoscopic surgery with right upper lobectomy and mediastinal lymph node dissection. Postoperatively patient was sent to the ICU she was extubated in the recovery room, and I was asked to see her on consultation this morning. Patient seems to be doing well, relatively asymptomatic, chest x-ray showed a small right-sided pneumothorax, chest tube remains in place, and she has some haziness in the right upper lung kaba. Ch est tube is connected to suction and that being addressed by surgery on the case labs this morning showed a slightly low sodium of 129 her WCL is 10.3 hemoglobin 11.7, patient is on 2 L nasal cannula with O2 sat of 97% and she is hemodynamically stable Patient was reevaluated today on 08/21/2023, patient remains in the ICU as an overflow, she seems to be comfortable, not in any distress, she is on 4 L nasal cannula. Chest x-ray continues to show pneumothorax of the right apex, and now she is developing more atelectatic changes in the right upper lung field. Patient apparently has some mucus plugging and she is having difficulty clearing her mucous plugs and secretions. She will be placed on Mucomyst, he is receiving updrafts, and she was instructed on aggressive use of her incentive sp irometer. She is also on updrafts. Patient developed also hyponatremia, did not improve much with fluids yesterday, hence I believe it is most likely SIADH picture and now I'm recommending fluid restriction and demeclocycline Reevaluated today 08/22/2023, patient remains in the ICU, she is basically an overflow, doing quite well, she is not in any distress. She is on 3 L nasal cannula, her chest x-ray continues to show some atelectasis in upper lung kaba, continues to have a small right-sided pneumothorax continues to have a small air leak. Patient is improving with demeclocycline and her sodium is improving. She is also improving with Mucinex, able to cough up some mucous plugs. Hence no immediate plans to perform bronchoscopy but that's to be considered if the patient doesn't did not show improvement. WBC count is 9.7 hemoglobin is 10.2 sodium 129 potassium 4.1 renal profile is normal. Progress note dated 08/23/2023. This is a 57-year-old female who was admitted on August 19, for a right upper lobectomy, secondary to lung cancer, which was performed on August 19. Cu rrently, she is on 4 L of oxygen, and not receiving any IV fluids. The patient's chest x-rays continue to so infiltrate, likely in the RML, since there is no right upper lobe anymore. Anyway, cardiothoracic surgery would like me to do a bronchoscopy, and clearing out any secretions in the lung, which may be attributing to her abnormality. The patient is congested in the chest, and is coughing up some phlegm. White count 9.5, hemoglobin 10.3, hematocrit 30.9, the platelet count 287,000. Sodium 128, potassium 4.1, chloride 93, CO2 30, BUN 8, creatinine 0.63. Chest x-ray shows a small right apical pneumothorax, and consolidation, likely in the RML, since there is no right upper lobe. Progress note dated 08/24/2023. 57-year-old female was admitted to the hospital on August 19, for right upper lobectomy, secondary to lung cancer. Surgery was performed on August 19. Currently, she is resting comfortably in the intensive care unit. She's in room 256. She continues on oxygen at 4 L. She's not receiving any IV fluids. Yesterday, we did bronchoscopy, and BAL, to the right middle lobe. The patient does not have a right upper lobe. The BAL was sent for cytology, and microbio logy. Currently, she is doing better, and in my opinion, her chest x-ray shows improvement in the infiltrate, in the right middle lobe. Labs today include a white count of 8, hemoglobin 10.5, hematocrit 30.8, and a normal platelet count. Sodium 132, potassium 3.7, chlorides 92, CO2 34, with a normal BUN and creatinine. If fluid analysis shows significant fluid be hazy, with 73% PMNs. In my opinion, the infiltrate in the right middle lobe, is improved, and the patient has a very small right apical pneumothorax. Chest tube has been removed. Progress note dated 08/25/2023. 57-year-old female who is admitted to the hospital on August 19, status post right upper lobectomy, secondary to lung cancer. She ended up having non-small cell lung cancer, with neuroendocrine features. All the lymph nodes, that were sampled, were negative. She is seen today in room 352. She is currently on 4 L of oxygen. No IV fluids. The patient is hoping to be discharged in the near future. White count 8.7, hemoglobin 10.6, hematocrit 32.5, and platelet count 376,000. Sodium 132, potassium 4.1, chlorides 92, CO2 34, BUN 11, and creatinine 0.62. Chest x-ray is interpreted as being stable by the radiologist. Progress note dated 08/26/2023. The patient is seen today in room 352. She continues on 4 L of oxygen. No IV fluids. The patient was admitted to the hospital on August 19, and underwent a right upper lobectomy, secondary to non-small cell lung cancer. The patient's lymph nodes that were sampled, all negative for malignancy. Labs today include a white count 10.4, hemoglobin 11, hematocrit 32.5, within normal platelet count. Sodium 1:30, potassium 4.5, chlorides 90, CO2 32, BUN 11, creatinine 0.57. The patient's chest x-ray today shows an increase in the right-sided pneumothorax. There is some right-sided subcutaneous emphysema. Computed tomography scan shows a 50% hydropneumothorax on the right side, with a large area of airspace consolidation. There is pneumomediastinum, and subcutaneous emphysema. Progress note dated 08/27/2023. 57-year-old female seen in room 352. The patient is status post right upper lobectomy. She continues on oxygen at 2 L. Unfortunately, the patient developed a pneumothorax on the right, and a chest tube was placed by cardiothoracic surgery. She was admitted back on August 19, and underwent a right upper lobectomy, secondary to non-small cell lung cancer. All lymph nodes were negative. Currently, she is on 2 L as mentioned, no IV fluids. She does have a leak from the chest tube. White count 9, hemoglobin 11.8, hematocrit 35.4, and platelet count normal. Sodium 133, potassium 4.8, chlorides 90, CO2 33, BUN 13, creatinine 0.63. Chest x-ray shows a properly positioned right- sided chest tube, with expansion of the right lung, and a significant reduction in the size of the pneumothorax. Progress note dated 08/28/2023. 57-year-old female seen in room 352. The patient is status post right upper lobectomy, on August 19. Unfortunately, more recently, she developed right- sided pneumothorax, and required chest tube reinsertion. She's currently on 2 L of oxygen. No IV fluids. Chest tube is to suction. There is no obvious leak noted. Labs today include a sodium 130, potassium 4.7, chlorides 88, CO2 34, BU N 16, and creatinine 0.58. Magnesium is 1.9. Chest x-ray shows subcutaneous emphysema, and a midlung infiltrate on the right. Progress note dated 08/29/2023. 57-year-old female seen in room 352. The patient had a right upper lobectomy for lung cancer back in August 19. Unfortunately, she is sustained a right- sided pneumothorax. The patient required chest tube insertion, and is currently on 2 L of oxygen, with saturations of 92%. The chest tube is to suction. This no air leak. According to the patient, cardiothoracic surgery discussed with her, the possibility of bronchoscopy, tomorrow. Sodium 130, potassium 4.3, chloride 84, CO2 34, BUN 19, creatinine 0.65. Calcium is 8.9. Chest x-ray reveals a persistent right-sided pneumothorax, with a right midlung consolidation. There is evidence of subcutaneous emphysema. On today's evaluation of 08/30/2023, I'm seeing the patient for a follow-up. As mentioned earlier, the patient had a right upper lobe non-small cell lung cancer and the patient underwent a right upper lobectomy and mediastinal lymph node dissection. The patient continues to have difficulties with right-sided pneumothorax. This morning, the patient is on 2 L of oxygen by nasal cannula. She is using the incentive spirometer. The patient has a right-sided pigtail catheter in place. I do not appreciate any air leak. Nevertheless, the chest x-ray shows incomplete expansion of the right lung. There is a persistent pneumothorax which is moderate-sized involving the right lung. There is also a right lung consolidating opacity in the right perihilar region and evidence of subcutaneous emphysema. The patient is currently nothing by mouth. The patient is going to undergo a bronchoscopy by the cardiothoracic surgeon. This will be effective bronchoscopy. The patient will be scheduled of 12.7, hemoglobin 11.8, sodium is at 1:30, B is a 50 with a creatinine of 0.5 and a potassium level is at 3.9. The patient is hemodynamically stable. The patient remains on DuoNeb updrafts [id number] and the patient is also on accommodation Perforomist and Pulmicort neb blotchiness twice a day. She is covered empirically with Levaquin. On today's evaluation of 08/31/2023, the patient is being seen for a follow-up. Patient is doing well. The patient is currently on room air oxygen. The bronchoscopy was done yesterday and there was no evidence of any mucus or anatomic obstruction of the right middle lobe area. There was some atelectasis of the lateral segment of the right middle lobe. The right upper lobe stump was within normal limits. The patient had a follow-up chest x-ray today and the patient was found to have a D- of the right-sided pneumothorax. There was still a right apical pneumothorax present. Subcutissues also present in the right. There is some atelectatic changes in the right middle lobe area.. No significant subcutaneous emphysema on today's examination. The patient is clinically stable hemodynamically stable and the patient is currently on room air oxygen. Labs from today show edematous count 10.9, hemoglobin of 11.9 and a platelet count of 560, BUN is at 40 with a creatinine of 0.6 and the sodium level is at 132. On today's evaluation of 09/01/2023, I'm seeing the patient for a follow-up. The output from the right-sided chest tube is a minimal in terms of fluid and there is no evidence of any air leak. The patient is stable right apical pneumothorax on today's chest x-ray. Basal discussed with cardiothoracic team and the patient has been essentially stable. As such, the right-sided chest t ube was removed. The patient is ambulating. The patient is not having any major respiratory difficulties. The patient continues to use incentive spirometer. On today's evaluation, she is only on 2 L with a pulse ox of 94%. The white cell count 11.7, hemoglobin 11.5, platelet count is at 523, BUN is a 50 with a creatinine of 0.6 and a sodium level is at 131. She'll be kept in hospital for monitoring for another 24 hours. On today's evaluation of 09/02/2023, the patient is on room air oxygen. Chest x-ray showing a small right apical pneumothorax. The patient is clinically stable and hemodynamically stable. No issues with pain. The chest tube was removed yesterday and there was no recurrent pneumothorax.The patient has postop day #14. The patient is using the incentive spirometer. No nausea. No vomiting. No abdominal pain. No chest pain. No other complaints otherwise for now. The labs show a bili discomfort of 11.7 and hemoglobin 11.5 and this is from yesterday. Hyponatremia is recovered. Objective - Vital Signs Vital signs: Vital Signs Temp 97.9 F 09/02/23 07:35 Pulse 90 09/02/23 08:46 Resp 16 09/02/23 10:30 BP 114/65 09/02/23 07:35 Pulse Ox 92 L 09/02/23 07:35 FiO2 21 09/01/23 07:52 Intake & Output 09/01/23 09/02/23 09/02/23 18:59 06:59 18:59 Intake Total 705 118 Output Total 450 800 Balance 255 -682 Intake: Oral 705 118 Output: Urine 450 800 Other: Voiding Method Toilet Toilet # Voids 1 ABP, PAP, CO, CI - Last Documented Arterial Blood Pressure 127/57 - Exam No acute distress, oriented 3. The patient's currently on room air oxygen HEENT examination is grossly unremarkable. Mucous membranes are moist. No oral lesions. Neck supple. Full range of motion. No adenopathy thyromegaly or neck vein distention. Cardiovascular examination reveals regular rhythm rate. S1-S2 normal. No S3 or S4. No discernible murmur noted. Subcutaneous emphysema is noted. Lungs reveal coarse bilateral rhonchi. Minimal crackles. No wheezes. Breath sounds equal bilaterally. The patient has a right-sided chest tube was removed Abdomen soft bowel sounds are heard. No masses or tenderness. Extremities are intact. No cyanosis clubbing or edema. Skin is without rash or lesion. Neurologic examination is brief but nonfocal. - Labs CBC & Chem 7: 09/01/23 08:25 09/01/23 08:25 Assessment and Plan Plan: Status post right upper lobectomy, for non-small cell lung cancer, postop day # 14 Status post mediastinal lymph node dissection, postop day # 14, Postop pathologic findings indicate hilar lymph nodes being positive based on the lobectomy sample. No other for hilar lymph nodes with possible metastases. As such, the patient was given T2b N1 disease. Status post bronchoscopy, 08/23/2023, with BAL to the right middle lobe. A repeat bronchoscopy was done on 08/30/2023. The right upper lobe stump was within normal limits. There was some atelectatic changes in the lateral segment of the right middle lobe. No mucus. No endobronchial tumor. Postoperative right, 10% pneumothorax on the right with limited subcutaneous emphysema. A right-sided chest tube and placed in no evidence of any air leak. Based on today's evaluation and based on the stability of the right-sided pneumothorax, the right-sided chest tube is removed. No evidence of any air leak. Hyponatremia, secondary to SIADH. Mild COPD with an FEV1 that's 87% of predicted. Dyslipidemia. Chronic cough. DJD. Tobacco dependence syndrome. Plan: Stable right apical pneumothorax Right-sided chest tube is removed 24 hours ago Repeat chest x-ray in the morning, shows a stable right-sided pneumothorax Bronchoscopy was performed and there is no anatomic obstruction and there is some atelectatic changes in the right middle lobe Continue using incentive spirometer We'll coordinate care along with the cardiothoracic team. Continue using the senna spirometer Discharge planning is in progress Outpatient follow-up regarding the residual pneumothorax and further treatment regarding the lung cancer. The patient has T2b N1 disease.
== END 2023-09-02 14:03 | disposition home or self-care (01) | DRG 829 ==
LOC: 2ORMAIN 09:39 → 2SICU 17:25 → 3SCARD 08-24 21:59
PROVIDERS: ADMIT Thoracic Surgery (Cardiothoracic Vascular Surgery); ATTEND Thoracic Surgery (Cardiothoracic Vascular Surgery)
PROC: 07B Lymphatic and Hemic Systems, Excision (ICD-10-PCS; 2023-08-19)
PROC: 0BTC0ZZ Resection of Right Upper Lung Lobe, Open Approach (ICD-10-PCS; principal; 2023-08-19 11:30)
PROC: 0B9D8ZX Drainage of Right Middle Lung Lobe, Via Natural or Artificial Opening Endoscopic, Diagnostic (ICD-10-PCS; 2023-08-23)
PROC: 0B9C8ZX Drainage of Right Upper Lung Lobe, Via Natural or Artificial Opening Endoscopic, Diagnostic (ICD-10-PCS; 2023-08-23)
PROC: 0W9940Z Drainage of Right Pleural Cavity with Drainage Device, Percutaneous Endoscopic Approach (ICD-10-PCS; 2023-08-30)
PROC: 0BCD8ZZ Extirpation of Matter from Right Middle Lung Lobe, Via Natural or Artificial Opening Endoscopic (ICD-10-PCS; 2023-08-30)
PROC: 8E0W4CZ Robotic Assisted Procedure of Trunk Region, Percutaneous Endoscopic Approach (ICD-10-PCS; 2023-08-30)
PROC: 3E0T3BZ Introduction of Anesthetic Agent into Peripheral Nerves and Plexi, Percutaneous Approach (ICD-10-PCS; 2023-08-30)
PROC: 0BJK8ZZ Inspection of Right Lung, Via Natural or Artificial Opening Endoscopic (ICD-10-PCS; 2023-08-31)
DX: C7A.8 Other malignant neuroendocrine tumors (principal); J80 Acute respiratory distress syndrome; E22.2 Syndrome of inappropriate secretion of antidiuretic hormone; J98.11 Atelectasis; T17.590A Other foreign object in bronchus causing asphyxiation, initial encounter; J94.2 Hemothorax; J93.82 Other air leak; J94.8 Other specified pleural conditions; T17.890A Other foreign object in other parts of respiratory tract causing asphyxiation, initial encounter; K21.9 Gastro-esophageal reflux disease without esophagitis; J43.8 Other emphysema; R05.3 Chronic cough; F17.210 Nicotine dependence, cigarettes, uncomplicated; M19.90 Unspecified osteoarthritis, unspecified site; E78.5 Hyperlipidemia, unspecified; J30.2 Other seasonal allergic rhinitis; J44.89 Other specified chronic obstructive pulmonary disease; Z88.1 Allergy status to other antibiotic agents; Z71.6 Tobacco abuse counseling; J45.909 Unspecified asthma, uncomplicated; M54.32 Sciatica, left side; Z79.899 Other long term (current) drug therapy; Z82.49 Family history of ischemic heart disease and other diseases of the circulatory system; Z85.118 Personal history of other malignant neoplasm of bronchus and lung; Z90.710 Acquired absence of both cervix and uterus; Z90.49 Acquired absence of other specified parts of digestive tract
CPT/HCPCS: 31623; 31624; 32551; 64461; 64999; 71045; 71046; 71250; 80048; 83735; 84100; 84132; 85025; 85027; 85610; 86850; 86900; 86901; 86920; 87070; 87102; 87116; 87205; 87206; 87496; 87498; 87502; 87529; 87634; 87798; 88305; 88309; 88313; 88341; 88342; 89050; 94640; 94667; 94668; 94760

== ENCOUNTER → 2023-09-17 | Outpatient (CLI) | payer BC ==
--- NOTE | 2023-09-17 14:09 | XR ---
EXAMINATION TYPE: XR chest 2V DATE OF EXAM: 09/17/2023 2:01 PM COMPARISON: Chest radiographs from 09/02/2023 TECHNIQUE: XR chest 2V Frontal and lateral views of the chest. CLINICAL INDICATION:Female, 57 years old with history of CHRONIC OBSTRUCTIVE PULMONARY DISEASE, UNSPE CIFIED J44.9; FINDINGS: Lungs/Pleura: Persistent small right apical pneumothorax which is marginally increased in size from p rior exam. Left lung is clear. Blunting of the right costophrenic angle consistent with small right p leural effusion. Increased masslike consolidation within the right mid lung. Pulmonary vascularity: Unremarkable. Heart/mediastinum: Cardiomediastinal silhouette is unremarkable. Atherosclerotic calcifications are seen in the aorta. Musculoskeletal: No acute osseous pathology. Other findings: Resolution of right chest wall subcutaneous emphysema. Lines/Tubes: Endotracheal tube with distal tip xx cm above the pam Nasogastric tube with its distal tip and side-port projecting under the diaphragm. IMPRESSION: 1. Marginal increase in persistent small right apical pneumothorax. 2. Increase in masslike right midlung consolidation. Consider further evaluation with CT chest. 3. Development of small right pleural effusion.
== END | disposition home or self-care (01) ==
LOC: RADXRMAIN 13:38
PROVIDERS: ATTEND Thoracic Surgery (Cardiothoracic Vascular Surgery)
DX: J90 Pleural effusion, not elsewhere classified (principal); J44.9 Chronic obstructive pulmonary disease, unspecified; J93.9 Pneumothorax, unspecified
CPT/HCPCS: 71046

== ENCOUNTER → 2023-09-28 | Outpatient (CLI) | payer BC ==
--- NOTE | 2023-09-28 13:50 | CT ---
EXAMINATION TYPE: CT chest wo con DATE OF EXAM: 09/28/2023 COMPARISON: 08/26/2023 HISTORY: 57-year-old female C34.90, f/u lung CA, partial rt lung removal in oct TECHNIQUE: Contiguous axial scanning of the chest without IV contrast. Coronal/sagittal reconstructio ns performed. CT DLP: 223.40mGycm. Automatic exposure control utilized for a dose reduction. FINDINGS: The heart is normal size with trace pericardial effusion. Mild LAD coronary artery calcifications are present. Aorta normal caliber with conventional vessel branching anatomy. Postsurgical change relating to right upper lobectomy with surgical material in right suprahilar yvonne on. Left lung and pleural spaces are relatively clear. There is a small right basilar pleural effusion. There appears to be a loculated pneumothorax anterior right upper lung measuring up to 4.5 cm. Severe opacification and consolidation within the adjacent lung with apparent fluid density measuring up to 7.7 cm wide. At the anterior right midlung, second area is present. This has a rounded appearance measuring 9.2 cm craniocaudal by 7.4 cm AP by 8.2 cm wide. Air-fluid level is present within. Visualized upper abdomen shows cholecystectomy clips and mild fatty infiltration of the liver. Some residual subcutaneous emphysema extending along the anterior upper abdominal wall on either side . Bones: No osseous destructive process. IMPRESSION: 1. Status post right upper lobectomy with small right pleural effusion. 2. There appears to be residual loculated small anterior upper lung pneumothorax measuring 4.5 cm. 3. In addition, there is focal severe consolidation of the adjacent right upper lung measuring 7.7 cm . There appears to be fluid density here. Unable to exclude severe pneumonia or pulmonary abscess. Cl inically correlate. 4. Possible second pulmonary abscess or cavitary necrosis with air-fluid level anterior right midlung measuring 9.2 x 8.2 x 7.4 cm.
== END | disposition home or self-care (01) ==
LOC: RADCTMAIN 08:48
PROVIDERS: ATTEND Internal Medicine
DX: C34.90 Malignant neoplasm of unspecified part of unspecified bronchus or lung (principal); J90 Pleural effusion, not elsewhere classified; J18.1 Lobar pneumonia, unspecified organism; Z90.2 Acquired absence of lung [part of]
CPT/HCPCS: 71250

== ENCOUNTER 2023-09-29 16:42 | Inpatient (IN) | payer BC ==
[2023-09-29 17:19] LABS: Basophils % (A) 0 %; Eosinophils % (A) 0 %; HCT 30.4 % (34.0-46.0); Hypochromasia Slight; Lymphocytes # (A) 2.7 k/uL (1.0-4.8); Lymphocytes % (A) 17 %; MCHC 31.7 g/dL (31.0-37.0); MCV 85.1 fL (80.0-100.0); Mean Platelet Volume 7.1; Monocytes # (A) 0.5 k/uL (0-1.0); Monocytes % (A) 3 %; Neutrophils # (A) 12.5 k/uL (1.3-7.7); Neutrophils % (A) 78 %; Platelet Count 694 k/uL (150-450); RBC 3.57 m/uL (3.80-5.40); RDW 14.2 % (11.5-15.5)
[2023-09-29 17:24] LABS: HGB 9.6 gm/dL (11.4-16.0)
[2023-09-29 17:27] LABS: Partial Thromboplastin Time 32.2 sec (22.0-30.0); Prothrombin Time 10.7 sec (10.0-12.5)
[2023-09-29 17:31] LABS: ALT 24 U/L (4-34); AST 30 U/L (14-36); African American GFR (CKD) >90 (>60 ml/min/1.73 sqM); Albumin 2.9 g/dL (3.5-5.0); Alkaline Phosphatase 237 U/L (38-126); Blood Urea Nitrogen 12 mg/dL (7-17); Calcium 8.6 mg/dL (8.4-10.2); Chloride 83 mmol/L (98-107); Glucose 112 mg/dL (74-99); Magnesium 1.9 mg/dL (1.6-2.3); Non-African American GFR(CKD) >90 (>60 ml/min/1.73 sqM); Potassium 3.2 mmol/L (3.5-5.1); Sodium 133 mmol/L (137-145); Total Bilirubin 0.4 mg/dL (0.2-1.3); Total Protein 6.5 g/dL (6.3-8.2)
[2023-09-29 17:37] LABS: Anion Gap 16 mmol/L
[2023-09-29 17:44] LABS: Carbon Dioxide 34 mmol/L (22-30)
--- NOTE | 2023-09-29 17:58 | XR ---
EXAMINATION TYPE: XR chest 2V DATE OF EXAM: 09/29/2023 COMPARISON: 09/17/2023 and 09/23/2023 HISTORY: 57-year-old female difficulty breathing, shortness of breath TECHNIQUE: PA and lateral views FINDINGS: Enlarging small right pleural effusion. Worsening opacities right upper mid lung weight loculated rig ht apical pneumothorax redemonstrated. Probable air-fluid level here. Rounded opacities right upper a nd midlung. Please refer to recent CT chest report from yesterday. IMPRESSION: Extensive pleural-parenchymal opacities on the right, possible pulmonary abscess and areas of severe pneumonia. Loculated right apical pneumothorax may be filling with fluid now. Refer to CT report from yesterday.
[2023-09-29] MEDS ORDERED: VANCOMYCIN 1,250 MG in SODIUM CHLORIDE 0.9% 250 ML IVPB ONE (18:00)
[2023-09-29] MEDS ORDERED: LEVOFLOXACIN 500MG-D5W PMX 500 MG in DEXTROSE/WATER 1 100ML.BAG IVPB STA (18:53)
[2023-09-29] MEDS ORDERED: VANCOMYCIN IV PER PHARMACY 1 EACH MISC MISCELLANE PRN (18:54)
[2023-09-29] MEDS ORDERED: NALOXONE 0.4 MG/ML 1 ML VIAL IV PRN (18:54)
[2023-09-29] MEDS: SODIUM CHLORIDE 0.9% 1,000 ML IV SCH (19:04)
--- NOTE | 2023-09-29 19:29 | ED ---
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 Patient had lung mass removed several weeks ago. She has been on oral antibiotics and has had a complicated postoperative course. She has had fever and chills, poor appetite. Outpatient CT was performed yesterday which showed lung abscess. Patient consented for admission. - Related Data Home Medications Medication Instructions Recorded Confirmed Cetirizine HCl [Zyrtec] 10 mg PO Q2D 07/06/23 08/13/23 Fluticasone/Umeclidin/Vilanter 1 puff INHALATION DAILY 07/06/23 08/13/23 [Trelegy Ellipta 200-62.5-25] Montelukast [Singulair] 10 mg PO HS 07/06/23 08/13/23 Omeprazole [PriLOSEC] 10 mg PO BID 07/06/23 08/13/23 Pravastatin Sodium [Pravachol] 10 mg PO HS 07/06/23 08/13/23 Albuterol Inhaler [Ventolin Hfa 2 puff INHALATION Q6H PRN 08/13/23 08/13/23 Inhaler] Previous Rx's Medication Instructions Recorded Acetaminophen Tab [Tylenol] 1,000 mg PO Q6HR PRN tab 09/02/23 Ibuprofen [Motrin] 600 mg PO QID PRN tab 09/02/23 Ipratropium-Albuterol Nebulize 3 ml IH RT-QID 30 Days #120 each 09/02/23 [Duoneb 0.5 mg-3 mg/3 ml Soln] Sennosides-Docusate Sodium 1 each PO BID #14 tab 09/02/23 [Senokot-S] guaiFENesin [Mucinex] 1,200 mg PO Q12HR #60 tab 09/02/23 polyethylene glycoL 3350 [Miralax] 17 gm PO DAILY #14 packet 09/02/23 Allergies Allergy/AdvReac Type Severity Reaction Status Date / Time amoxicillin Allergy Rash/Hives Verified 08/19/23 10:15 calcium [From Coral Calcium] Allergy Swelling Verified 08/19/23 10:13 calcium carbonate Allergy Swelling Verified 08/19/23 10:13 [From Coral Calcium] cephalexin [From Keflex] Allergy Rash/Hives Verified 08/19/23 10:13 cholecalciferol (vitamin D3) Allergy Swelling Verified 08/19/23 10:13 [From Coral Calcium] Iodinated Contrast Media Allergy Unknown Verified 08/19/23 10:13 magnesium Allergy Swelling Verified 08/19/23 10:13 [From Coral Calcium] magnesium amino acid chelate Allergy Swelling Verified 08/19/23 10:13 [From Coral Calcium] magnesium oxide Allergy Swelling Verified 08/19/23 10:13 [From Coral Calcium] Penicillins Allergy Rash/Hives Verified 08/19/23 10:13 shellfish derived Allergy Swelling Verified 08/19/23 10:13 sulfamethoxazole Allergy muscle Verified 08/13/23 09:16 [From Bactrim] weakness trimethoprim [From Bactrim] Allergy muscle Verified 08/13/23 09:16 weakness varenicline [From Chantix] Allergy rash and Verified 08/13/23 09:16 itching Review of Systems ROS Statement: Those systems with pertinent positive or pertinent negative responses have been documented in the HPI. ROS Other: All systems not noted in ROS Statement are negative. Past Medical History Past Medical History: COPD, GERD/Reflux, Hyperlipidemia, Osteoarthritis (OA) Additional Past Medical History / Comment(s): seasonal allergies. spot on lung - PET scan History of Any Multi-Drug Resistant Organisms: None Reported Past Surgical History: Section, Cholecystectomy, Hysterectomy Additional Past Surgical History / Comment(s): colonoscopy Past Anesthesia/Blood Transfusion Reactions: No Reported Reaction Additional Past Anesthesia/Blood Transfusion Reaction / Comment(s): no blood tranfusions Past Psychological History: Anxiety Smoking Status: Current every day smoker - Past Family History Father Family Medical History: Coronary Artery Disease (CAD), Hypertension Additional Family Medical History / Comment(s): pacemaker Mother Family Medical History: Diabetes Mellitus, Hypertension General Exam Limitations: no limitations General appearance: alert, in no apparent distress Head exam: Present: atraumatic, normocephalic Eye exam: Present: normal appearance, PERRL ENT exam: Present: mucous membranes dry Respiratory exam: Present: rhonchi, decreased breath sounds. Absent: respiratory distress Cardiovascular Exam: Present: normal rhythm, tachycardia GI/Abdominal exam: Present: soft. Absent: distended, tenderness, guarding Extremities exam: Present: normal inspection, normal capillary refill Neurological exam: Present: alert, oriented X3 Psychiatric exam: Present: normal affect, normal mood Skin exam: Present: warm, dry, intact Course Vital Signs 09/29/23 09/29/23 09/29/23 16:44 18:30 18:41 Temperature 100.0 F H 98.8 F Pulse Rate 120 H 102 H Respiratory 20 20 18 Rate Blood Pressure 116/60 122/67 O2 Sat by Pulse 91 L 100 Oximetry Medical Decision Making - Medical Decision Making Was pt. sent in by a medical professional or institution (, PA, [employer], urgent care, hospital, or intermediate...) When possible be specific @ -[Sent in by Dr. Davey for admission. Did you speak to anyone other than the patient for history (EMS, parent, family, police, friend...)? What history was obtained from this source @ -No Did you review nursing and triage notes (agree or disagree)? Why? @ -I reviewed and agree with nursing and triage notes Were old charts reviewed (outside hosp., previous admission, EMS record, old EKG, old radiological studies, urgent care reports/EKG's, intermediate records)? Report findings @ -No old charts were reviewed Differential Diagnosis (chest pain, altered mental status, abdominal pain women, abdominal pain men, vaginal bleeding, weakness, fever, dyspnea, syncope, headache, dizziness, GI bleed, back pain, seizure, CVA, palpatations, mental health, musculoskeletal)? @ -[Differential Dyspnea: Coronary syndrome, arrhythmia, tamponade, asthma, COPD, pulmonary embolism, pneumonia, pneumothorax, pulmonary effusion, anaphylaxis, diabetic ketoacidosis, flailed chest, pulmonary contusion, diaphragmatic rupture, anemia, neuromuscular, this is not meant to be an all-inclusive list. EKG interpreted by me (3pts min.). @ -Sinus tachycardia rate of 116, AL interval 126, QRS duration 94, QTC 398 X-rays interpreted by me (1pt min.). @ -[chest x-ray showing right upper lung opacity with apical pneumothorax and lung abscess. CT interpreted by me (1pt min.). @ -None done U/S interpreted by me (1pt. min.). @ -None done What testing was considered but not performed or refused? (CT, X-rays, U/S, labs)? Why? @ -None What meds were considered but not given or refused? Why? @ -None Did you discuss the management of the patient with other professionals (pr ofessionals i.e. , PA, [employer], lab, RT, psych nurse, social work lecturer, gauge maker apprentice, teacher, targeting acquisition officer, case assembler)? Give summary @Is discussed with Dr. Davey, [facility] hospitalist Was smoking cessation discussed for >3mins.? @ -No Was critical care preformed (if so, how long)? @ -No Were there social determinants of health that impacted care today? How? (Homelessness, low income, unemployed, alcoholism, drug addiction, transportation, low edu. Level, literacy, decrease access to med. care, alf, rehab)? @ - Was there de-escalation of care discussed even if they declined (Discuss DNR or withdrawal of care, Hospice)? DNR status @ -No What co-morbidities impacted this encounter? (DM, HTN, Smoking, COPD, CAD, Cancer, CVA, ARF, Chemo, Hep., AIDS, mental health diagnosis, sleep apnea, morbid obesity)? @ Lung mass Was patient admitted / discharged? Hospital course, mention meds given and route, prescriptions, significant lab abnormalities, going to OR and other pertinent info. @ -[57 female with lung abscess on an outpatient CT which was performed yesterday. Patient admitted for IV antibiotics, further evaluation treatment by pulmonology, infectious disease, and cardiothoracic surgery. Undiagnosed new problem with uncertain prognosis? @ -No Drug Therapy requiring intensive monitoring for toxicity (Heparin, Nitro, Insulin, Cardizem)? @ -No Were any procedures done? @ -No Diagnosis/symptom? @ -[lung Abscess Acute, or Chronic, or Acute on Chronic? @Acute Uncomplicated (without systemic symptoms) or Complicated (systemic symptoms)? @ -[Complicated Side effects of treatment? @ -No Exacerbation, Progression, or Severe Exacerbation? @ -No Poses a threat to life or bodily function? How? (Chest pain, USA, ME, pneumonia, PE, COPD, DKA, ARF, appy, cholecystitis, CVA, Diverticulitis, Homicidal, Suicidal, threat to staff... and all critical care pts) @ -[Yes, sepsis - Lab Data Result diagrams: 09/29/23 16:57 09/29/23 16:57 Lab Results 09/29/23 09/29/23 09/29/23 Range/Units 16:57 16:57 16:57 WBC 16.0 H (3.8-10.6) k/uL RBC 3.57 L (3.80-5.40) m/uL Hgb 9.6 L D (11.4-16.0) gm/dL Hct 30.4 L (34.0-46.0) % MCV 85.1 (80.0-100.0) fL MCH 27.0 (25.0-35.0) pg MCHC 31.7 (31.0-37.0) g/dL RDW 14.2 (11.5-15.5) % Plt Count 694 H (150-450) k/uL MPV 7.1 Neutrophils % 78 % Lymphocytes % 17 % Monocytes % 3 % Eosinophils % 0 % Basophils % 0 % Neutrophils # 12.5 H (1.3-7.7) k/uL Lymphocytes # 2.7 (1.0-4.8) k/uL Monocytes # 0.5 (0-1.0) k/uL Eosinophils # 0.0 (0-0.7) k/uL Basophils # 0.0 (0-0.2) k/uL Hypochromasia Slight PT 10.7 (10.0-12.5) sec INR 1.0 (<1.2) APTT 32.2 H (22.0-30.0) sec Sodium 133 L (137-145) mmol/L Potassium 3.2 L (3.5-5.1) mmol/L Chloride 83 L (98-107) mmol/L Carbon Dioxide 34 H (22-30) mmol/L Anion Gap 16 mmol/L BUN 12 (7-17) mg/dL Creatinine 0.50 L (0.52-1.04) mg/dL Est GFR (CKD-EPI)AfAm >90 (>60 ml/min/1.73 sqM) Est GFR (CKD-EPI)NonAf >90 (>60 ml/min/1.73 sqM) Glucose 112 H (74-99) mg/dL Plasma Lactic Acid Eliud (0.7-2.0) mmol/L Calcium 8.6 (8.4-10.2) mg/dL Magnesium 1.9 (1.6-2.3) mg/dL Total Bilirubin 0.4 (0.2-1.3) mg/dL AST 30 (14-36) U/L ALT 24 (4-34) U/L Alkaline Phosphatase 237 H (38-126) U/L Troponin I (0.000-0.034) ng/mL Total Protein 6.5 (6.3-8.2) g/dL Albumin 2.9 L (3.5-5.0) g/dL 09/29/23 09/29/23 Range/Units 16:57 16:57 WBC (3.8-10.6) k/uL RBC (3.80-5.40) m/uL Hgb (11.4-16.0) gm/dL Hct (34.0-46.0) % MCV (80.0-100.0) fL MCH (25.0-35.0) pg MCHC (31.0-37.0) g/dL RDW (11.5-15.5) % Plt Count (150-450) k/uL MPV Neutrophils % % Lymphocytes % % Monocytes % % Eosinophils % % Basophils % % Neutrophils # (1.3-7.7) k/uL Lymphocytes # (1.0-4.8) k/uL Monocytes # (0-1.0) k/uL Eosinophils # (0-0.7) k/uL Basophils # (0-0.2) k/uL Hypochromasia PT (10.0-12.5) sec INR (<1.2) APTT (22.0-30.0) sec Sodium (137-145) mmol/L Potassium (3.5-5.1) mmol/L Chloride (98-107) mmol/L Carbon Dioxide (22-30) mmol/L Anion Gap mmol/L BUN (7-17) mg/dL Creatinine (0.52-1.04) mg/dL Est GFR (CKD-EPI)AfAm (>60 ml/min/1.73 sqM) Est GFR (CKD-EPI)NonAf (>60 ml/min/1.73 sqM) Glucose (74-99) mg/dL Plasma Lactic Acid Eliud 1.9 (0.7-2.0) mmol/L Calcium (8.4-10.2) mg/dL Magnesium (1.6-2.3) mg/dL Total Bilirubin (0.2-1.3) mg/dL AST (14-36) U/L ALT (4-34) U/L Alkaline Phosphatase (38-126) U/L Troponin I <0.012 (0.000-0.034) ng/mL Total Protein (6.3-8.2) g/dL Albumin (3.5-5.0) g/dL Disposition Clinical Impression: Cavitating mass in right upper lung lobe, Lung abscess Disposition: ADMITTED IP TO THIS HOSP Condition: Stable Is patient prescribed a controlled substance at d/c from ED?: No Referrals: Jair Griffin [Primary Care Provider] - 1-2 days Time of Disposition: 19:27
[2023-09-29] MEDS: HYDROmorphone 0.5 MG/0.5 ML SYRINGE IVP PRN (21:06)
[2023-09-30] MEDS: HYDROmorphone 0.5 MG/0.5 ML SYRINGE IVP PRN ×6 (00:04→21:00)
[2023-09-30] MEDS ORDERED: Potassium Replacement Protocol 1 EACH MISC MISCELLANE PRN (02:23)
[2023-09-30] MEDS ORDERED: IPRATROPIUM-ALBUTEROL 3 ML NEB INHALATION PRN (02:27)
--- NOTE | 2023-09-30 02:48 | P.CNPUL ---
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 Patient is a 57-year-old white female with past medical history significant for right upper lobe non-small cell lung carcinoma status post robotic-assisted VATS involving a right upper lobectomy on August 19, 2023. She did have a complicated postoperative hospital stay with a persistent right sided pneumothorax and opacification of the right midlung area. She has been closely followed up on an outpatient basis. She does follow Dr. Davey in the pulmonary office, and also had a office visit with Dr. Espino from cardiothoracic surgery on 09/17. She states that she has "not really been 100%" since surgery. More recently she has had symptoms of exertional shortness of breath, right-sided back pain, productive cough with yellow/green sputum sometimes pink tinged, and subjective fevers. She has received courses of Levaquin and doxycycline outpatient. A CT of the chest done 2 days ago demonstrated focal severe consolidation of the right upper lobe measuring 7.7 cm with what appears to be a fluid density concerning for pulmonary abscess. There is an adjacent residual loculated small anterior upper lung pneumothorax measuring 4.5 cm. There is a possible secondary pulmonary abscess or cavitary necrosis with air-fluid level anterior right mid lung measuring 9.2 x 8.2 x 7.4 cm. For this reason, she was directed to the emergency room yesterday. Patient was given doses of Levaquin and vancomycin in the emergency room. She does have a penicillin ALLERGY. Bronchoscopy with BAL done on 08/23/2023 did not identify significant bacterial growth. CBC shows a WBC count of 16, hemoglobin 9.6, he matocrit 30.4, platelets 694. BMP on arrival shows sodium 133, potassium 3.2, chloride 83, serum bicarbonate 34, BUN 12, creatinine 0.5, glucose 112. Normal saline infusing at 130 ML's per hour. Lactic acid level I.9. Patient is currently lying in bed, on 2 L/m nasal cannula, in no acute distress. SPO2 97%. She is slightly tachycardic with a heart rate of 116 bpm. She was febrile with a T-max of 100F. Blood cultures pending. Hemodynamically stable. Review of Systems REVIEW OF SYSTEMS: CONSTITUTIONAL: Denies any recent significant weight loss or weight gain. EYES: Denies change in vision. EARS, NOSE, MOUTH, THROAT: Denies headaches, denies sore throat. CARDIOVASCULAR: Denies chest pain, palpitations or syncopal episodes. RESPIRATORY: See HPI GASTROINTESTINAL: Denies change in appetite, abdominal pain, nausea and vomiting, or diarrhea GENITOURINARY: Denies hematuria, denies infections. MUSKULOSKELETAL: Admits right upper back pain, described as sore, intermittent with coughing and deep breathing INTEGUMENTARY: Denies rash, denies eczema. NEUROLOGICAL: Denies recent memory loss, no recent seizure activity. PSYCHIATRIC: Denies anxiety, denies depression. HEMATOLOGIC/LYMPHATIC: Denies anemia, denies enlarged lymph node Past Medical History Past Medical History: COPD, GERD/Reflux, Hyperlipidemia, Osteoarthritis (OA) Additional Past Medical History / Comment(s): seasonal allergies. spot on lung - PET scan, upper lobe mass removal, diverticulitis History of Any Multi-Drug Resistant Organisms: None Reported Past Surgical History: Bowel Resection, Section, Cholecystectomy, Hysterectomy Additional Past Surgical History / Comment(s): colonoscopy Past Anesthesia/Blood Transfusion Reactions: No Reported Reaction Additional Past Anesthesia/Blood Transfusion Reaction / Comment(s): no blood tranfusions Past Psychological History: Anxiety Smoking Status: Former smoker Past Alcohol Use History: None Reported Past Drug Use History: None Reported - Past Family History Father Family Medical History: Coronary Artery Disease (CAD), Hypertension Additional Family Medical History / Comment(s): pacemaker Mother Family Medical History: Diabetes Mellitus, Hypertension Medications and Allergies Home Medications Medication Instructions Recorded Confirmed Type Doxycycline Hyclate 100 mg PO BID 09/29/23 09/29/23 History Allergies Allergy/AdvReac Type Severity Reaction Status Date / Time amoxicillin Allergy Rash & Verified 09/29/23 21:16 Hives all over body/Itching/Fever calcium [From Coral Calcium] Allergy Swelling Verified 09/29/23 21:16 calcium carbonate Allergy Swelling Verified 09/29/23 21:16 [From Coral Calcium] cephalexin [From Keflex] Allergy Rash/Hives Verified 09/29/23 21:16 cholecalciferol (vitamin D3) Allergy Swelling Verified 09/29/23 21:16 [From Coral Calcium] Iodinated Contrast Media Allergy Unknown Verified 09/29/23 21:16 magnesium Allergy Swelling Verified 09/29/23 21:16 [From Coral Calcium] magnesium amino acid chelate Allergy Swelling Verified 09/29/23 21:16 [From Coral Calcium] magnesium oxide Allergy Swelling Verified 09/29/23 21:16 [From Coral Calcium] Penicillins Allergy Rash & Verified 09/29/23 21:16 Hives all over body/Itching/Fever shellfish derived Allergy Swelling Verified 09/29/23 21:16 sulfamethoxazole Allergy muscle Verified 09/29/23 21:16 [From Bactrim] weakness trimethoprim [From Bactrim] Allergy muscle Verified 09/29/23 21:16 weakness varenicline [From Chantix] Allergy rash and Verified 09/29/23 21:16 itching Physical Exam Vitals: Vital Signs Temp Pulse Pulse Resp BP BP Pulse Ox 09/29/23 23:19 98.1 F 116 H 20 103/53 96 09/29/23 21:04 99.1 F 111 H 20 121/72 99 09/29/23 18:41 18 09/29/23 18:30 98.8 F 102 H 20 122/67 100 09/29/23 16:44 100.0 F H 120 H 20 116/60 91 L Intake and Output 09/29/23 09/29/23 09/30/23 14:59 22:59 06:59 Other: # Voids 0 Weight 63.957 kg 63.957 kg GENERAL EXAM: Alert, 57-year-old white female appearing stated age , comfortable in no apparent distress. HEAD: Normocephalic and atraumatic EYES: Normal reaction of pupils, equal size. NOSE: Clear with pink turbinates. THROAT: No erythema or exudates. NECK: No masses, no JVD. CHEST: No chest wall deformity. LUNGS: Equal air entry with diminished right upper lobe lung sounds and evidence of consolidation. No crackles, wheezes, rhonchi. Currently on 2 L/m nasal cannula. No conversational dyspnea or accessory muscle use.. CVS: S1 and S2 normal with no audible murmur, regular rhythm. No extra heart sounds ABDOMEN: No hepatosplenomegaly, active bowel sounds, no guarding or rigidity. SPINE: No scoliosis or deformity SKIN: No rashes CENTRAL NERVOUS SYSTEM: No focal deficits, tone is normal in all 4 extremities. EXTREMITIES: There is no peripheral edema, clubbing, or cyanosis. Peripheral pulses are intact. Results - Laboratory Findings CBC and BMP: 09/29/23 16:57 09/29/23 16:57 PT/INR, D-dimer PT 10.7 sec (10.0-12.5) 09/29/23 16:57 INR 1.0 (<1.2) 09/29/23 16:57 Abnormal lab findings: Abnormal Labs 09/29/23 09/29/23 09/29/23 16:57 16:57 16:57 WBC 16.0 H RBC 3.57 L Hgb 9.6 L D Hct 30.4 L Plt Count 694 H Neutrophils # 12.5 H APTT 32.2 H Sodium 133 L Potassium 3.2 L Chloride 83 L Carbon Dioxide 34 H Creatinine 0.50 L Glucose 112 H Alkaline Phosphatase 237 H Albumin 2.9 L - Diagnostic Findings Chest x-ray: image reviewed CT scan - chest: image reviewed Assessment and Plan Assessment: Non-small cell lung cancer status post right upper lobectomy, done on 08/19/20. Two regional hilar lymph nodes were positive for metastasis. No other lymph nodes involved. Post-operative hospital stay was complicated by persistent residual right apical pneumothorax. During this hospitalization, she did have a follow-up bronchoscopy with BAL done on 08/31/2023, which did not isolate any bacterial organisims. Likely secondary lung abscess, A CT of the chest done 2 days ago demonstrated focal severe consolidation of the right upper lobe measuring 7.7 cm with what appears to be a fluid density concerning for pulmonary abscess. There is an adjacent residual loculated small anterior upper lung pneumothorax measuring 4.5 cm. There is a possible second pulmonary abscess or cavitary necrosis with air- fluid level anterior right mid lung measuring 9.2 x 8.2 x 7.4 cm. Leukocytosis Residual right apical loculated pneumothorax, as described above Hypokalemia, being replaced Normocytic normochromic anemia, without any obvious blood loss Chronic obstructive pulmonary disease, with a FEV1 53% of predicted, stable. Former tobacco dependence Plan: Patient was admitted for IV antibiotics and possible repeat bronchoscopy. Cardiothoracic surgery also consulted. Continue empiric antibiotics, which will be managed by infectious disease. Patient does have many ALLERGIES including penicillin. Blood cultures pending. Currently afebrile. Electrolytes are being replaced. Currently on 2 L/m nasal cannula, which can likely be weaned down/off. Appears stable for monitoring on the cardiac step down unit. Further recommendations are forthcoming. I have personally seen and examined the patient, performed the documentation and the assessment and plan as written. Number of minutes spent on the visit:20 Time with Patient: Greater than 30
[2023-09-30] MEDS: POTASSIUM CHLORIDE ER 20 MEQ TAB.ER PO SCH ×4 (03:19→11:14)
[2023-09-30 06:11] LABS: Basophils % (A) 0 %; Eosinophils % (A) 0 %; HCT 26.5 % (34.0-46.0); HGB 8.4 gm/dL (11.4-16.0); Hypochromasia Slight; Lymphocytes # (A) 1.5 k/uL (1.0-4.8); Lymphocytes % (A) 11 %; MCH 27.3 pg (25.0-35.0); MCHC 31.7 g/dL (31.0-37.0); Mean Platelet Volume 7.1; Monocytes # (A) 0.5 k/uL (0-1.0); Monocytes % (A) 4 %; Neutrophils % (A) 85 %; Platelet Count 563 k/uL (150-450); RBC 3.09 m/uL (3.80-5.40); RDW 14.1 % (11.5-15.5); WBC 14.2 k/uL (3.8-10.6)
[2023-09-30] MEDS: SODIUM CHLORIDE 0.9% 1,000 ML IV SCH ×3 (06:19→22:22)
[2023-09-30 06:27] LABS: African American GFR (CKD) >90 (>60 ml/min/1.73 sqM); Anion Gap 7 mmol/L; Blood Urea Nitrogen 10 mg/dL (7-17); Calcium 7.7 mg/dL (8.4-10.2); Carbon Dioxide 35 mmol/L (22-30); Chloride 88 mmol/L (98-107); Glucose 107 mg/dL (74-99); Non-African American GFR(CKD) >90 (>60 ml/min/1.73 sqM); Potassium 3.2 mmol/L (3.5-5.1); Sodium 130 mmol/L (137-145)
[2023-09-30] MEDS: IPRATROPIUM-ALBUTEROL 3 ML NEB INHALATION SCH ×4 (07:52→21:17)
[2023-09-30] MEDS: VANCOMYCIN 1,250 MG in SODIUM CHLORIDE 0.9% 250 ML IVPB SCH ×2 (08:02→21:00)
--- NOTE | 2023-09-30 09:48 | P.GSCN ---
History of Present Illness Consult date: 09/30/23 Reason for Consult: Recent robotic-assisted right upper lobectomy, on 08/19/2023 Right lung abscess Requesting physician: Brian Castano History of present illness: This is a 57-year-old female patient who follows on an outpatient basis with Dr. Jair Griffin for her primary care and with Dr. Mateo Davey for her pulmonary care. 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 Postoperatively she did have a complicated hospital stay with a persistent right sided pneumothorax and opacification of the right midlung area, and on 08/30/2023 underwent a bronchoscopy and a right sided tube thoracostomy placement. She also has a past medical history significant for COPD with a recent FEV1 87% of predicted value, DLCO 55% of predicted value, chronic tobacco dependence with recent cessation, asthma, diverticulitis, hyperlipidemia, GERD, and osteoarthritis. The patient reports since her right upper lobectomy she has had a productive cough which is progressively gotten worse. Since her surgery she has had 2 rounds of oral antibiotics treated with Levaquin and doxycycline. The patient reports despite being treated with oral antibiotics her cough has progressed and has become productive with green tenacious sputum. She reports she is having some pain to her right back, exertional shortness of breath, a 10 pound weight loss since surgery, lack of appetite, occasional fevers and night sweats. She denies any complaints of headache, nausea, vomiting, diarrhea, constipation, visual disturbances, rash, presyncope or syncope. Due to the patient's complaints of progressive productive cough, the patient followed up with Dr. Davey who recommended the patient undergo a computed tomography scan of the chest. The CT of the chest without contrast was completed yesterday 09/28/2023 which demonstrated a small right pleural effusion, a residual loculated small anterior upper lung pneumothorax measuring 4.5 cm, a focal severe consolidation of the adjacent right upper lung measuring 7.7 cm, a fluid density, possible severe pneumonia or pulmonary abscess, and possible second ovary abscess or cavity necrosis with air-fluid level anterior right mid lung measuring 9.2 x 8.2 x 7.4 cm. Subsequently, due to the findings on the computed tomography scan of the chest the patient was recommended by Dr. Davey to present to the emergency department here at [facility] for further evaluation and treatment recommendations. A chest x-ray was completed in the emergency department which showed extensive pleural parenchymal opacities on the right, possible pulmonary abscess and areas of severe pneumonia, and a loculated right apical pneumothorax. Initial laboratory results showed a WBC count of 16.0, hemoglobin 9.6, hematocrit 30.4, platelets 694, PT 10.7, INR 1.0, PTT 32.2, sodium 133, potassium 3.2, chloride 83, CO2 34, BUN 12, creatinine 0.50, glucose 112, plastic lactic acid venous 1.9, calcium 8.6, magnesium 1.9, troponin less than 0.012. Subsequently, due to the findings on the above-mentioned studies and patient's complaint of progressive cough she was admitted for further evaluation and treatment recommendations. Oxygen saturations are currently 95% on 4 L nasal cannula, she remains hemodynamically stable and her T-max temperature since admission is 100F. Blood culture results remain pending. Due to the patient being known to our service and her presenting symptoms, findings on the above-mentioned computed tomography scan a consult was placed to cardiothoracic surgery for further evaluation and treatment recommendations. Review of Systems A 14 point review of systems was completed and was negative except as mentioned in the HPI. Past Medical History Past Medical History: Asthma, COPD, GERD/Reflux, Hyperlipidemia, Osteoarthritis (OA) Additional Past Medical History / Comment(s): seasonal allergies. spot on lung - PET scan, right upper lobectomy, diverticulitis History of Any Multi-Drug Resistant Organisms: None Reported Past Surgical History: Bowel Resection, Section, Cholecystectomy, Hysterectomy Additional Past Surgical History / Comment(s): colonoscopy, right upper lobectomy on 08/19/2023 Past Anesthesia/Blood Transfusion Reactions: No Reported Reaction Additional Past Anesthesia/Blood Transfusion Reaction / Comm: no blood tranfusions Past Psychological History: Anxiety Smoking Status: Former smoker Past Alcohol Use History: None Reported Past Drug Use History: None Reported - Past Family History Father Family Medical History: Coronary Artery Disease (CAD), Hypertension Additional Family Medical History / Comment(s): pacemaker Mother Family Medical History: Diabetes Mellitus, Hypertension Medications and Allergies Home Medications Medication Instructions Recorded Confirmed Type Doxycycline Hyclate 100 mg PO BID 09/29/23 09/29/23 History Allergies Allergy/AdvReac Type Severity Reaction Status Date / Time amoxicillin Allergy Rash & Verified 09/29/23 21:16 Hives all over body/Itching/Fever calcium [From Coral Calcium] Allergy Swelling Verified 09/29/23 21:16 calcium carbonate Allergy Swelling Verified 09/29/23 21:16 [From Coral Calcium] cephalexin [From Keflex] Allergy Rash/Hives Verified 09/29/23 21:16 cholecalciferol (vitamin D3) Allergy Swelling Verified 09/29/23 21:16 [From Coral Calcium] Iodinated Contrast Media Allergy Unknown Verified 09/29/23 21:16 magnesium Allergy Swelling Verified 09/29/23 21:16 [From Coral Calcium] magnesium amino acid chelate Allergy Swelling Verified 09/29/23 21:16 [From Coral Calcium] magnesium oxide Allergy Swelling Verified 09/29/23 21:16 [From Coral Calcium] Penicillins Allergy Rash & Verified 09/29/23 21:16 Hives all over body/Itching/Fever shellfish derived Allergy Swelling Verified 09/29/23 21:16 sulfamethoxazole Allergy muscle Verified 09/29/23 21:16 [From Bactrim] weakness trimethoprim [From Bactrim] Allergy muscle Verified 09/29/23 21:16 weakness varenicline [From Chantix] Allergy rash and Verified 09/29/23 21:16 itching Surgical - Exam Vital Signs Temp Pulse Resp BP Pulse Ox 100.0 F H 120 H 20 116/60 91 L 09/29/23 16:44 09/29/23 16:44 09/29/23 16:44 09/29/23 16:44 09/29/23 16:44 - General well developed, well nourished, no distress, moderate pain (to her right back), chronically ill - Eyes PERRL, normal ocular movement, no pale, no icteric - ENT Xanthomas bilaterally normal pinna, normal nares, normal mucosa, no hearing loss - Neck Neck is supple, no lymphadenopathy no masses, no bruits, trachea midline, no venous distension - Respiratory Lungs essentially clear throughout, diminished to her right lobes. No wheezes, rhonchi or crackles. Oxygen saturation are 95% on 2 L nasal cannula. Respirations are symmetrical and nonlabored. Productive cough with green tenacious sputum. - Cardiovascular Regular rhythm and rate. S1 and S2 present, negative for S3, gallop or murmur. - Abdomen Abdomen is soft, nontender and nondistended. Active bowel sounds present in all 4 abdominal quadrants. No guarding or rigidity. No organomegaly appreciated. - Genitourinary Deferred - Rectum Deferred - Integumentary Right chest incisions, healed no rash, no growths, no abnormal pigmentation - Neurologic Cranial nerves II through XII intact, no focal deficits. normal coordination, normal sensation - Musculoskeletal Strength equal bilaterally. Moves all 4 extremities. normal gait, normal posture - Psychiatric oriented to time, oriented to person, oriented to place, speech is normal, memory intact Results - Labs 09/30/23 05:42 09/30/23 05:42 Abnormal Lab Results - Last 24 Hours (Table) 09/29/23 09/29/23 09/29/23 Range/Units 16:57 16:57 16:57 WBC 16.0 H (3.8-10.6) k/uL RBC 3.57 L (3.80-5.40) m/uL Hgb 9.6 L D (11.4-16.0) gm/dL Hct 30.4 L (34.0-46.0) % Plt Count 694 H (150-450) k/uL Neutrophils # 12.5 H (1.3-7.7) k/uL APTT 32.2 H (22.0-30.0) sec Sodium 133 L (137-145) mmol/L Potassium 3.2 L (3.5-5.1) mmol/L Chloride 83 L (98-107) mmol/L Carbon Dioxide 34 H (22-30) mmol/L Creatinine 0.50 L (0.52-1.04) mg/dL Glucose 112 H (74-99) mg/dL Calcium (8.4-10.2) mg/dL Alkaline Phosphatase 237 H (38-126) U/L Albumin 2.9 L (3.5-5.0) g/dL 09/30/23 09/30/23 Range/Units 05:42 05:42 WBC 14.2 H (3.8-10.6) k/uL RBC 3.09 L (3.80-5.40) m/uL Hgb 8.4 L (11.4-16.0) gm/dL Hct 26.5 L (34.0-46.0) % Plt Count 563 H (150-450) k/uL Neutrophils # 12.0 H (1.3-7.7) k/uL APTT (22.0-30.0) sec Sodium 130 L (137-145) mmol/L Potassium 3.2 L (3.5-5.1) mmol/L Chloride 88 L (98-107) mmol/L Carbon Dioxide 35 H (22-30) mmol/L Creatinine 0.41 L (0.52-1.04) mg/dL Glucose 107 H (74-99) mg/dL Calcium 7.7 L (8.4-10.2) mg/dL Alkaline Phosphatase (38-126) U/L Albumin (3.5-5.0) g/dL Diabetes panel 09/29/23 09/30/23 Range/Units 16:57 05:42 Sodium 133 L 130 L (137-145) mmol/L Potassium 3.2 L 3.2 L (3.5-5.1) mmol/L Chloride 83 L 88 L (98-107) mmol/L Carbon Dioxide 34 H 35 H (22-30) mmol/L BUN 12 10 (7-17) mg/dL Creatinine 0.50 L 0.41 L (0.52-1.04) mg/dL Glucose 112 H 107 H (74-99) mg/dL Calcium 8.6 7.7 L (8.4-10.2) mg/dL AST 30 (14-36) U/L ALT 24 (4-34) U/L Alkaline Phosphatase 237 H (38-126) U/L Total Protein 6.5 (6.3-8.2) g/dL Albumin 2.9 L (3.5-5.0) g/dL Calcium panel 09/29/23 09/30/23 Range/Units 16:57 05:42 Calcium 8.6 7.7 L (8.4-10.2) mg/dL Albumin 2.9 L (3.5-5.0) g/dL Pituitary panel 09/29/23 09/30/23 Range/Units 16:57 05:42 Sodium 133 L 130 L (137-145) mmol/L Potassium 3.2 L 3.2 L (3.5-5.1) mmol/L Chloride 83 L 88 L (98-107) mmol/L Carbon Dioxide 34 H 35 H (22-30) mmol/L BUN 12 10 (7-17) mg/dL Creatinine 0.50 L 0.41 L (0.52-1.04) mg/dL Glucose 112 H 107 H (74-99) mg/dL Calcium 8.6 7.7 L (8.4-10.2) mg/dL Adrenal panel 09/29/23 09/30/23 Range/Units 16:57 05:42 Sodium 133 L 130 L (137-145) mmol/L Potassium 3.2 L 3.2 L (3.5-5.1) mmol/L Chloride 83 L 88 L (98-107) mmol/L Carbon Dioxide 34 H 35 H (22-30) mmol/L BUN 12 10 (7-17) mg/dL Creatinine 0.50 L 0.41 L (0.52-1.04) mg/dL Glucose 112 H 107 H (74-99) mg/dL Calcium 8.6 7.7 L (8.4-10.2) mg/dL Total Bilirubin 0.4 (0.2-1.3) mg/dL AST 30 (14-36) U/L ALT 24 (4-34) U/L Alkaline Phosphatase 237 H (38-126) U/L Total Protein 6.5 (6.3-8.2) g/dL Albumin 2.9 L (3.5-5.0) g/dL - Imaging Chest x-ray: report reviewed, image reviewed CT scan - chest: report reviewed, image reviewed Assessment and Plan Assessment: Possible lung abscess, computed tomography scan of the chest on 09/28/2023 showing a small right pleural effusion, a residual loculated small anterior upper lung pneumothorax measuring 4.5 cm, a focal severe consolidation of the ad jacent right upper lung measuring 7.7 cm, a fluid density, possible severe pneumonia or pulmonary abscess, and possible second ovary abscess or cavity necrosis with air-fluid level anterior right mid lung measuring 9.2 x 8.2 x 7.4 cm Leukocytosis, likely secondary to above Normocytic normochromic anemia, no obvious blood loss Non-small cell carcinoma with neuroendocrine differentiation, consistent with large cell neuroendocrine carcinoma, 2 of 4 hilar nodes positive on pathology, status post robotic-assisted right upper lobectomy on 08/19/2023 and subsequent bronchoscopy with placement of right thoracostomy tube COPD with a recent FEV1 showing a predicted value of 87% and a DLCO 55% of pre dicted value Asthma Hyperlipidemia GERD History of diverticulitis, status post bowel resection Chronic tobacco dependence with recent cessation Osteoarthritis Plan: The patient was seen and examined at her bedside on the third for cardiac stepdown unit. Her chart and diagnostics were reviewed. Her case was discussed in detail with Dr. Roman Campo from cardiothoracic surgery. At this time we will continue to follow the patient, and monitor daily chest x-rays, continue IV antibiotics, IV antibiotic management per infectious disease recommendations. Await blood culture results. Send sputum for Gram stain and Gram stain and sensitivity. Encourage use of incentive spirometry 10 times every hour while awake. Increase activity as tolerated, out of bed for all meals. Pain control per current when necessary orders. Reinforced with the patient the importance of continued smoking cessation. We will start the patient on Mucinex 1200 mg by mouth twice a day and Mucomyst. Medical management and other comorbidities per primary care service. Bronchodilator management recommendations per pulmonary/critical care medicine. More recommendations to follow based on patient's clinical course. Thank you for this consult and we look for to working with you in the care of this patient. I have personally seen and examined the patient, performed the documentation and the assessment and plan as written. 30 minutes spent on the visit . [facility]
--- NOTE | 2023-09-30 13:44 | P.HPIM ---
History of Present Illness H&P Date: 09/30/23 History of present illness; patient is a 57-year-old lady with past medical history significant for right upper lobe non-small cell lung carcinoma status post robotic-assisted VATS involving a right upper lobectomy on 08/19/23 who presented to the ER because of abnormal computed tomography scan findings and persistent shortness of breath. Patient had recent VATS of right upper lobe surgery done in August, post operative course was complicated by persistent right-sided pneumothorax and opacification of the right mid lung area. After the surgery patient stated that she was not feeling well. Patient has been having worsening shortness of breath on exertion. Patient was also having productive cough which with green colored phlegm. Patient was also having f leonard at home. Patient was being followed up closely by pulmonology as listed per CT surgery in outpatient settings. Because of these symptoms, patient had outpatient computed tomography scan done which showed ocal severe consolidation of the right upper lobe measuring 7.7 cm with what appears to be a fluid density concerning for pulmonary abscess. There is an adjacent residual loculated small anterior upper lung pneumothorax measuring 4.5 cm. There is a possible secondary pulmonary abscess or cavitary necrosis with air-fluid level anterior right mid lung measuring 9.2 x 8.2 x 7.4 cm. because of these findings, patient was referred to the ER Initial lab work done in the ER showed WBC 16, hemoglobin 9.6, platelet count 694, sodium 1:30 potassium 3.2, BUN 12, creatinine 0.5, glucose 112 Chest x-ray done in the ER showed extensive pleural/parenchymal S2 with right po ssible pulmonary abscess and areas of severe pneumonia, loculated right apical pneumothorax may be filling with fluid now Patient admitted to medicine service REVIEW OF SYSTEMS: CONSTITUTIONAL: As mentioned in HPI HEENT: No recent visual problems or hearing problems. Denied any sore throat. CARDIOVASCULAR: No chest pain, orthopnea, PND, no palpitations, no syncope. PULMONARY: As mentioned in HPI GASTROINTESTINAL: No diarrhea, no nausea, no vomiting, no abdominal pain. NEUROLOGICAL: No headaches, no weakness, no numbness. HEMATOLOGICAL: Denies any bleeding or petechiae. GENITOURINARY: Denies any burning micturition, frequency, or urgency. MUSCULOSKELETAL/RHEUMATOLOGICAL: Denies any joint pain, swelling, or any muscle pain. ENDOCRINE: Denies any polyuria or polydipsia. The rest of the 14-point review of systems is negative. PHYSICAL EXAMINATION: GENERAL: The patient is alert and oriented x3, not in any acute distress. Chronically ill-looking HEENT: Pupils are round and equally reacting to light. EOMI. No scleral icterus. No conjunctival pallor. Normocephalic, atraumatic. No pharyngeal erythema. No thyromegaly. CARDIOVASCULAR: S1 and S2 present. No murmurs, rubs, or gallops. PULMONARY: Diminished Breath sounds at the right lung base no wheezing or crackles. ABDOMEN: Soft, nontender, nondistended, normoactive bowel sounds. No palpable organomegaly. MUSCULOSKELETAL: No joint swelling or deformity. EXTREMITIES: No cyanosis, clubbing, or pedal edema. NEUROLOGICAL: Gross neurological examination did not reveal any focal deficits. SKIN: No rashes. Assessment and plan Bacterial pneumonia Lung abscess Hypokalemia Non-small cell lung cancer status post right upper lobectomy, done on 08/19/2023. Leukocytosis Residual right apical loculated pneumothorax Normocytic normochromic anemia Chronic obstructive pulmonary disease Former tobacco dependence Monitor vital signs Monitor CBC Monitor CMP Continue telemetry monitoring Follow-up on blood cultures Follow-up on sputum culture Aggressive bronchopulmonary hygiene Continue IV aztreonam and vancomycin Continue breathing treatments Pulmonology consulted CT surgery consulted ID consulted Labs and medication were reviewed.. Continue same treatment. Continue with symptomatic treatment. Resume home medication. Monitor labs and vitals. DVT and GI prophylaxis. Further recommendations as per clinical course of the patient Dictation was produced using [employer] dictation software. please excuse any grammatical, word or spelling errors. Past Medical History Past Medical History: COPD, GERD/Reflux, Hyperlipidemia, Osteoarthritis (OA) Additional Past Medical History / Comment(s): seasonal allergies. spot on lung - PET scan, upper lobe mass removal, diverticulitis History of Any Multi-Drug Resistant Organisms: None Reported Past Surgical History: Bowel Resection, Section, Cholecystectomy, Hysterectomy Additional Past Surgical History / Comment(s): colonoscopy Past Anesthesia/Blood Transfusion Reactions: No Reported Reaction Additional Past Anesthesia/Blood Transfusion Reaction / Comment(s): no blood tranfusions Past Psychological History: Anxiety Smoking Status: Former smoker Past Alcohol Use History: None Reported Past Drug Use History: None Reported - Past Family History Father Family Medical History: Coronary Artery Disease (CAD), Hypertension Additional Family Medical History / Comment(s): pacemaker Mother Family Medical History: Diabetes Mellitus, Hypertension Medications and Allergies Home Medications Medication Instructions Recorded Confirmed Type Doxycycline Hyclate 100 mg PO BID 09/29/23 09/29/23 History Allergies Allergy/AdvReac Type Severity Reaction Status Date / Time amoxicillin Allergy Rash & Verified 09/29/23 21:16 Hives all over body/Itching/Fever calcium [From Coral Calcium] Allergy Swelling Verified 09/29/23 21:16 calcium carbonate Allergy Swelling Verified 09/29/23 21:16 [From Coral Calcium] cephalexin [From Keflex] Allergy Rash/Hives Verified 09/29/23 21:16 cholecalciferol (vitamin D3) Allergy Swelling Verified 09/29/23 21:16 [From Coral Calcium] Iodinated Contrast Media Allergy Unknown Verified 09/29/23 21:16 magnesium Allergy Swelling Verified 09/29/23 21:16 [From Coral Calcium] magnesium amino acid chelate Allergy Swelling Verified 09/29/23 21:16 [From Coral Calcium] magnesium oxide Allergy Swelling Verified 09/29/23 21:16 [From Coral Calcium] Penicillins Allergy Rash & Verified 09/29/23 21:16 Hives all over body/Itching/Fever shellfish derived Allergy Swelling Verified 09/29/23 21:16 sulfamethoxazole Allergy muscle Verified 09/29/23 21:16 [From Bactrim] weakness trimethoprim [From Bactrim] Allergy muscle Verified 09/29/23 21:16 weakness varenicline [From Chantix] Allergy rash and Verified 09/29/23 21:16 itching Physical Exam Vitals: Vital Signs Temp Pulse Pulse Resp BP BP Pulse Ox 09/30/23 08:00 99 F 111 H 22 114/71 97 09/30/23 03:21 98.5 F 110 H 18 106/66 95 09/30/23 01:48 116 H 20 09/29/23 23:19 98.1 F 116 H 20 103/53 96 09/29/23 21:04 99.1 F 111 H 20 121/72 99 09/29/23 18:41 18 09/29/23 18:30 98.8 F 102 H 20 122/67 100 09/29/23 16:44 100.0 F H 120 H 20 116/60 91 L Intake and Output 09/29/23 09/30/23 09/30/23 22:59 06:59 14:59 Other: # Voids 0 Weight 63.957 kg 63.957 kg Results CBC & Chem 7: 09/30/23 05:42 09/30/23 05:42 Labs: Abnormal Lab Results - Last 24 Hours (Table) 09/29/23 09/29/23 09/29/23 Range/Units 16:57 16:57 16:57 WBC 16.0 H (3.8-10.6) k/uL RBC 3.57 L (3.80-5.40) m/uL Hgb 9.6 L D (11.4-16.0) gm/dL Hct 30.4 L (34.0-46.0) % Plt Count 694 H (150-450) k/uL Neutrophils # 12.5 H (1.3-7.7) k/uL APTT 32.2 H (22.0-30.0) sec Sodium 133 L (137-145) mmol/L Potassium 3.2 L (3.5-5.1) mmol/L Chloride 83 L (98-107) mmol/L Carbon Dioxide 34 H (22-30) mmol/L Creatinine 0.50 L (0.52-1.04) mg/dL Glucose 112 H (74-99) mg/dL Calcium (8.4-10.2) mg/dL Alkaline Phosphatase 237 H (38-126) U/L Albumin 2.9 L (3.5-5.0) g/dL 09/30/23 09/30/23 Range/Units 05:42 05:42 WBC 14.2 H (3.8-10.6) k/uL RBC 3.09 L (3.80-5.40) m/uL Hgb 8.4 L (11.4-16.0) gm/dL Hct 26.5 L (34.0-46.0) % Plt Count 563 H (150-450) k/uL Neutrophils # 12.0 H (1.3-7.7) k/uL APTT (22.0-30.0) sec Sodium 130 L (137-145) mmol/L Potassium 3.2 L (3.5-5.1) mmol/L Chloride 88 L (98-107) mmol/L Carbon Dioxide 35 H (22-30) mmol/L Creatinine 0.41 L (0.52-1.04) mg/dL Glucose 107 H (74-99) mg/dL Calcium 7.7 L (8.4-10.2) mg/dL Alkaline Phosphatase (38-126) U/L Albumin (3.5-5.0) g/dL Thrombosis Risk Factor Assmnt - Choose All That Apply Any of the Below Risk Factors Present?: Yes Each Factor Represents 1 point: Abnormal pulmonary function (COPD), Age 41-60 years, History of prior major surgery (<1month) Other Risk Factors: No Thrombosis Risk Factor Assessment Total Risk Factor Score: 3 Thrombosis Risk Factor Assessment Level: Moderate Risk
[2023-09-30] MEDS: ACETYLCYSTEINE 800 MG/4 ML VIAL INHALATION SCH ×2 (15:30→21:17)
[2023-09-30] MEDS: AZTREONAM 2 GM in SODIUM CHLORIDE 0.9% 100 ML IVPB SCH (17:49)
[2023-09-30] MEDS ORDERED: LEVOFLOXACIN 500MG-D5W PMX 500 MG in DEXTROSE/WATER 1 100ML.BAG IVPB SCH (18:00)
[2023-09-30] MEDS: guaiFENesin 600 MG TABLET.ER PO SCH (20:59)
--- NOTE | 2023-09-30 22:51 | P.CONS ---
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 the patient is status post robotic assisted right upper lobectomy on 08/19/2023 postoperatively the patient did have a problem with right-sided pneumothorax and opacification she did have a bronchoscopy on 08/30/2023 and right-sided tube thoracostomy placement patient subsequently has been discharged patient mention she has been on 2 rounds of oral antibiotics initially Levaquin with the patient did have some side effects and able to tolerate however subsequently has been on doxycycline patient is presenting to the hospital with progressive worsening of the cough which has been moderate to severe in intensity and has been bringing up some purulent sputum denies having any hemoptysis did have right-sided chest pain especially with coughing moderate intensity without any radiation denies any nausea no vomiting no abdominal pain no diarrhea or urinary symptoms patient on presentation to hospital did have low-grade fever of 100 F patient was tachycardic and hypoxic requiring 2 L nasal cannula oxygen patient did have white count of 16,000 with a left shift creatinine 0.50 liver enzymes are normal chest x-ray extensive pleuroparenchymal opacities on the right possible pulmonary abscess in the areas of severe pneumonia patient was started on Levaquin and vancomycin because of her allergies infectious disease was consulted for further management of antibiotic therapy Review of Systems Positive point and negatives has been mentioned in the HPI, complete review of systems was performed and all other systems are negative Past Medical History Past Medical History: Asthma, COPD, GERD/Reflux, Hyperlipidemia, Osteoarthritis (OA) Additional Past Medical History / Comment(s): seasonal allergies. spot on lung - PET scan, right upper lobectomy, diverticulitis History of Any Multi-Drug Resistant Organisms: None Reported Past Surgical History: Bowel Resection, Section, Cholecystectomy, Hysterectomy Additional Past Surgical History / Comment(s): colonoscopy, right upper lobectomy on 08/19/2023 Past Anesthesia/Blood Transfusion Reactions: No Reported Reaction Additional Past Anesthesia/Blood Transfusion Reaction / Comm: no blood t ranfusions Past Psychological History: Anxiety Smoking Status: Former smoker Past Alcohol Use History: None Reported Past Drug Use History: None Reported - Past Family History Father Family Medical History: Coronary Artery Disease (CAD), Hypertension Additional Family Medical History / Comment(s): pacemaker Mother Family Medical History: Diabetes Mellitus, Hypertension Medications and Allergies Home Medications Medication Instructions Recorded Confirmed Type Acetaminophen Tab [Tylenol] 1,000 mg PO Q6HR PRN tab 10/25/23 Rx Ipratropium-Albuterol Nebulize 3 ml INHALATION RT-Q4H PRN each 10/25/23 Rx [Duoneb 0.5 mg-3 mg/3 ml Soln] Ipratropium-Albuterol Nebulize 3 ml INHALATION RT-QID #100 each 10/25/23 Rx [Duoneb 0.5 mg-3 mg/3 ml Soln] Ketorolac [Toradol] 10 mg PO Q6HR PRN #10 tab 10/25/23 Rx Lidocaine 4% Patch 1 patch TOPICAL DAILY #30 patch 10/25/23 Rx Metoprolol Tartrate [Lopressor] 12.5 mg PO BID 30 Days #60 tab 10/25/23 Rx Pantoprazole [Protonix] 40 mg PO AC-BRKFST #30 tab 10/25/23 Rx Sennosides-Docusate Sodium 2 each PO HS tab 10/25/23 Rx [Senokot-S] Sertraline [Zoloft] 50 mg PO DAILY #30 tab 10/25/23 Rx guaiFENesin [Mucinex] 1,200 mg PO Q12HR 10 Days #20 tab 10/25/23 Rx Allergies Allergy/AdvReac Type Severity Reaction Status Date / Time amoxicillin Allergy Rash & Verified 10/13/23 11:51 Hives all over body/Itching/Fever calcium [From Coral Calcium] Allergy Swelling Verified 10/13/23 11:51 calcium carbonate Allergy Swelling Verified 10/13/23 11:51 [From Coral Calcium] cephalexin [From Keflex] Allergy Rash/Hives Verified 10/13/23 11:51 cholecalciferol (vitamin D3) Allergy Swelling Verified 10/13/23 11:51 [From Coral Calcium] Fish Containing Products Allergy Anaphylaxis Verified 10/13/23 11:51 [Fish] Iodinated Contrast Media Allergy Unknown Verified 10/13/23 11:51 magnesium Allergy Swelling Verified 10/13/23 11:51 [From Coral Calcium] magnesium amino acid chelate Allergy Swelling Verified 10/13/23 11:51 [From Coral Calcium] magnesium oxide Allergy Swelling Verified 10/13/23 11:51 [From Coral Calcium] Penicillins Allergy Rash & Verified 10/13/23 11:51 Hives all over body/Itching/Fever shellfish derived Allergy Swelling Verified 10/13/23 11:51 sulfamethoxazole Allergy muscle Verified 10/13/23 11:51 [From Bactrim] weakness trimethoprim [From Bactrim] Allergy muscle Verified 10/13/23 11:51 weakness varenicline [From Chantix] Allergy rash and Verified 10/13/23 11:51 itching fish Allergy Anaphylaxis Uncoded 10/13/23 11:51 Physical Exam Vitals: Vital Signs Temp Pulse Pulse Resp BP BP Pulse Ox 09/30/23 11:27 108 H 09/30/23 11:18 98.5 F 107 H 20 114/67 97 09/30/23 11:15 108 H 09/30/23 08:00 99 F 111 H 22 114/71 97 09/30/23 03:21 98.5 F 110 H 18 106/66 95 09/30/23 01:48 116 H 20 09/29/23 23:19 98.1 F 116 H 20 103/53 96 09/29/23 21:04 99.1 F 111 H 20 121/72 99 09/29/23 18:41 18 09/29/23 18:30 98.8 F 102 H 20 122/67 100 09/29/23 16:44 100.0 F H 120 H 20 116/60 91 L Intake and Output 09/29/23 09/30/23 09/30/23 22:59 06:59 14:59 Other: # Voids 0 Weight 63.957 kg 63.957 kg GENERAL DESCRIPTION: Middle-age female lying in bed, no distress. No tachypnea or accessory muscle of respiration use. HEENT: Shows Pallor , no scleral icterus. Oral mucous membrane is dry. No phary ngeal erythema or thrush NECK: Trachea central, no thyromegaly. LUNGS: Unlabored breathing. Decreased breath sound at the base HEART: S1, S2, regular rate and rhythm. No loud murmur ABDOMEN: Soft, no tenderness EXTREMITIES: diffuse swelling to bilateral lower extremity with some dry scaly skin and weeping edema SKIN: No rash, no masses palpable. NEUROLOGICAL: The patient is awake, alert, oriented x3, mood and affect normal. Results CBC & Chem 7: 10/23/23 08:56 10/25/23 06:29 Labs: Abnormal Lab Results - Last 24 Hours (Table) 09/29/23 09/29/23 09/29/23 Range/Units 16:57 16:57 16:57 WBC 16.0 H (3.8-10.6) k/uL RBC 3.57 L (3.80-5.40) m/uL Hgb 9.6 L D (11.4-16.0) gm/dL Hct 30.4 L (34.0-46.0) % Plt Count 694 H (150-450) k/uL Neutrophils # 12.5 H (1.3-7.7) k/uL APTT 32.2 H (22.0-30.0) sec Sodium 133 L (137-145) mmol/L Potassium 3.2 L (3.5-5.1) mmol/L Chloride 83 L (98-107) mmol/L Carbon Dioxide 34 H (22-30) mmol/L Creatinine 0.50 L (0.52-1.04) mg/dL Glucose 112 H (74-99) mg/dL Calcium (8.4-10.2) mg/dL Alkaline Phosphatase 237 H (38-126) U/L Albumin 2.9 L (3.5-5.0) g/dL 09/30/23 09/30/23 Range/Units 05:42 05:42 WBC 14.2 H (3.8-10.6) k/uL RBC 3.09 L (3.80-5.40) m/uL Hgb 8.4 L (11.4-16.0) gm/dL Hct 26.5 L (34.0-46.0) % Plt Count 563 H (150-450) k/uL Neutrophils # 12.0 H (1.3-7.7) k/uL APTT (22.0-30.0) sec Sodium 130 L (137-145) mmol/L Potassium 3.2 L (3.5-5.1) mmol/L Chloride 88 L (98-107) mmol/L Carbon Dioxide 35 H (22-30) mmol/L Creatinine 0.41 L (0.52-1.04) mg/dL Glucose 107 H (74-99) mg/dL Calcium 7.7 L (8.4-10.2) mg/dL Alkaline Phosphatase (38-126) U/L Albumin (3.5-5.0) g/dL Assessment and Plan (1) Allergy to multiple antibiotics Status: Acute Code(s): Z88.1 - ALLERGY STATUS TO OTHER ANTIBIOTIC AGENTS SNOMED Code(s): 468104040 (2) Lung abscess Status: Acute Code(s): J85.2 - ABSCESS OF LUNG WITHOUT PNEUMONIA SNOMED Code(s): 63466735 (3) Pneumonia Status: Acute Code(s): J18.9 - PNEUMONIA, UNSPECIFIED ORGANISM SNOMED Code(s): 217669167 Plan: 1patient presented to hospital with sepsis in this patient who did have a fever tachycardia hypoxemia elevated white count source is unlikely pneumonia with question of possible abscess/empyema in this patient with recent surgery we will need to cover for resistant gram-positive as well as gram-negative pathogen. 2patient with the penicillin and cephalosporin allergy that would limit the num sruthi of antibiotics even to use. 3patient to continue with the vancomycin pharmacy to dose however discontinue Levaquin and start the patient on Azactam 2 g every 8 hours 4-blood and sputum culture and check inflammatory markers We will follow on clinical condition and cultures to further adjust medication if needed Thank you for this consultation we will follow the patient along with you Dictation was produced using [employer] dictation software. please excuse any grammatical, word or spelling errors. Time with Patient: Greater than 30
[2023-10-01] MEDS: AZTREONAM 2 GM in SODIUM CHLORIDE 0.9% 100 ML IVPB SCH ×4 (00:40→23:12)
[2023-10-01] MEDS: HYDROmorphone 0.5 MG/0.5 ML SYRINGE IVP PRN ×6 (02:50→21:12)
[2023-10-01] MEDS: SODIUM CHLORIDE 0.9% 1,000 ML IV SCH ×3 (02:54→18:16)
[2023-10-01] MEDS: PANTOPRAZOLE 40 MG TABLET PO SCH (06:43)
--- NOTE | 2023-10-01 07:47 | P.PN ---
Subjective Progress Note Date: 10/01/23 Principal diagnosis: Pneumonia with possible lung abscess, small right pleural effusion, residual loculated small anterior upper lung pneumothorax, leukocytosis, normocytic normochromic anemia. History of non-small cell carcinoma with neuroendocrine differentiation, consistent with large cell neuroendocrine carcinoma status post robotic-assisted right upper lobectomy on 08/19/2023 and subsequent bronchoscopy with placement of right thoracostomy tube, chronic tobacco dependence with recent cessation, COPD, asthma, hyperlipidemia, GERD, diverticulitis status post bowel resection, osteoarthritis The patient was seen and examined sitting up in bed on the cardiac stepdown unit in no acute distress. States she feels a little better than when she came in. Still has productive cough and some shortness of breath. Has remained afebrile, a little tachy but sinus, blood pressure stable, currently on 2 LPM NC with oxygen saturation in the low to mid 90s. Able to achieve 1000 mL on incentive spirometer. Has been ambulatory in the room. Remains on IV antibiotics per infectious disease, sputum/blood cultures pending. Currently NPO for bronchoscopy with BAL by Dr. Davey today. No other new concerns. Objective - Vital Signs Vital signs: Vital Signs Temp 98.3 F 10/01/23 04:00 Pulse 109 H 10/01/23 04:00 Resp 20 10/01/23 04:00 BP 106/57 10/01/23 04:00 Pulse Ox 93 L 10/01/23 04:00 FiO2 Intake & Output 09/30/23 10/01/23 10/01/23 18:59 06:59 18:59 Other: # Voids 1 2 - Exam CONSTITUTIONAL: Appears comfortable, cooperative, no acute distress RESPIRATORY: Lungs sounds diminished on the right. Respirations even, nonlabored. Currently on 2 LPM NC with oxygen saturation 93%. Able to achieve 1000 mL on incentive spirometry. Strong productive cough. CARDIOVASCULAR: S1, S2 present. Tachy but regular rate and rhythm, sinus tach on telemetry. Palpable peripheral pulses bilaterally. No edema present. No calf pain or tenderness noted GASTROINTESTINAL: Abdomen soft, nontender, nondistended. Active bowel sounds present 4 quadrants. Currently NPO GENITOURINARY: Continues to void INTEGUMENTARY: Skin is warm and dry. Thoracic incisions well approximated NEUROLOGIC: Cranial nerves II through XII intact MUSKULOSKELETAL: Able to move all extremities, strength equal bilaterally, gait normal PSYCHIATRIC: Alert and oriented to person place and time, appropriate affect, intact judgment and insight - Allied health notes Allied health notes reviewed: nursing - Labs CBC & Chem 7: 09/30/23 05:42 09/30/23 05:42 Labs: Microbiology - Last 24 Hours (Table) 09/29/23 16:40 Blood Culture - Preliminary Blood - Imaging and Cardiology Chest x-ray: image reviewed Assessment and Plan Assessment: Pneumonia with possible lung abscess Small right pleural effusion, residual loculated small anterior upper lung pneumothorax Leukocytosis, secondary to above Normocytic normochromic anemia Non-small cell carcinoma with neuroendocrine differentiation, consistent with large cell neuroendocrine carcinoma status post robotic-assisted right upper lobectomy on 08/19/2023 and subsequent bronchoscopy with placement of right thoracostomy tube Chronic tobacco dependence with recent cessation COPD, FEV1 87%, DLCO 55% Asthma Hyperlipidemia GERD Diverticulitis status post bowel resection Osteoarthritis Plan: Patient to have bronchoscopy today by Dr. Davey Continue IV antibiotics per infectious disease, await blood/sputum culture finalization Will monitor daily labs, CXR Wean oxygen as tolerated, encourage use of incentive spirometry 10 times every hour while awake Increase activity as tolerated, out of bed for all meals Pain control per current medication regimen Reinforced continued smoking cessation Continue Mucinex, Mucomyst Bronchodilator per applications development consultant No surgical intervention planned at this time Medical management of other comorbidities per internal medicine, pulmonology, ID More recommendations to follow based on patient's clinical course
[2023-10-01] MEDS: guaiFENesin 600 MG TABLET.ER PO SCH ×2 (07:53→20:04)
[2023-10-01] MEDS: VANCOMYCIN 1,250 MG in SODIUM CHLORIDE 0.9% 250 ML IVPB SCH ×2 (07:55→20:04)
--- NOTE | 2023-10-01 07:59 | XR ---
EXAMINATION TYPE: XR chest 1V portable DATE OF EXAM: 10/01/2023 HISTORY: Shortness of breath. COMPARISON: 09/29/2023 TECHNIQUE: Single view of the chest is submitted. FINDINGS: Right perihilar and right upper lobe increased opacity persists with air-fluid level seen within the right lung apex which could reflect hydropneumothorax versus abscess. Suspect right basilar volume lo ss with subpulmonic effusion. The left lung is clear. The heart is stable. Hilar and mediastinal structures are within normal limits. Degenerative changes are seen of the dorsal spine. IMPRESSION: 1. Right perihilar and right upper lobe increased opacity persists with air-fluid level seen within the right lung apex which could reflect hydropneumothorax versus abscess. Suspect right basilar volum e loss with subpulmonic effusion.
[2023-10-01] MEDS ORDERED: PROPOFOL 10 MG/ML 20 ML VIAL IV ONE (08:26)
[2023-10-01] MEDS ORDERED: IV FLUID CONTINUATION 1,000 ML IV ONE (08:26)
[2023-10-01] MEDS ORDERED: LIDOCAINE 1% INJ 10MG/ML (20 ML MDV) ONE (08:26)
[2023-10-01] MEDS ORDERED: LIDOCAINE 2% (PF) 20 MG/ML 2 ML VIAL INHALATION ONE (08:30)
[2023-10-01] MEDS: ACETYLCYSTEINE 800 MG/4 ML VIAL INHALATION SCH ×4 (09:00→19:45)
[2023-10-01] MEDS: IPRATROPIUM-ALBUTEROL 3 ML NEB INHALATION SCH ×4 (09:00→19:45)
[2023-10-01 10:28] LABS: ALT 30 U/L (4-34); AST 44 U/L (14-36); African American GFR (CKD) >90 (>60 ml/min/1.73 sqM); Albumin 2.6 g/dL (3.5-5.0); Alkaline Phosphatase 313 U/L (38-126); Anion Gap 10 mmol/L; Blood Urea Nitrogen 7 mg/dL (7-17); Calcium 8.1 mg/dL (8.4-10.2); Carbon Dioxide 31 mmol/L (22-30); Chloride 93 mmol/L (98-107); Glucose 101 mg/dL (74-99); Non-African American GFR(CKD) >90 (>60 ml/min/1.73 sqM); Sodium 134 mmol/L (137-145); Total Bilirubin 0.5 mg/dL (0.2-1.3)
[2023-10-01 10:49] LABS: Basophils % (A) 0 %; Eosinophils % (A) 0 %; HCT 29.7 % (34.0-46.0); HGB 8.9 gm/dL (11.4-16.0); Hypochromasia Marked; Lymphocytes # (A) 2.2 k/uL (1.0-4.8); Lymphocytes % (A) 12 %; MCH 26.6 pg (25.0-35.0); MCHC 30.1 g/dL (31.0-37.0); MCV 88.4 fL (80.0-100.0); Mean Platelet Volume 7.3; Monocytes # (A) 0.7 k/uL (0-1.0); Monocytes % (A) 4 %; Neutrophils # (A) 14.7 k/uL (1.3-7.7); Neutrophils % (A) 82 %; Platelet Count 664 k/uL (150-450); RBC 3.36 m/uL (3.80-5.40); RDW 14.2 % (11.5-15.5); WBC 17.9 k/uL (3.8-10.6)
--- NOTE | 2023-10-01 12:32 | OP ---
OPERATIVE REPORT DATE OF SERVICE : PROCEDURE PERFORMED: Bronchoscopy, bronchoalveolar lavage of the right middle lobe, and multiple endobronchial biopsies of right middle lobe bronchus/medial segment. PREOPERATIVE DIAGNOSES: Right lung consolidation/pneumonia/possible abscess. POSTOPERATIVE DIAGNOSES: Right lung consolidation/pneumonia/possible abscess. ANESTHESIA USED: IV conscious sedation. DESCRIPTION OF PROCEDURE: The patient was prepared according to the bronchoscopy protocol. Brought into the bronchoscopy suite, placed in a supine position, we monitored her O2 saturation continuously, blood pressure was intermittently monitored, and cardiac rhythm was continuously monitored. O2 was applied via Ventimask, and after adequate IV conscious sedation, a few milliliters of lidocaine were instilled into the left naris, and the bronchoscope was advanced further down from the naris to the vocal cords, which were noted to be patent. Lidocaine was applied over the vocal cords, and the bronchoscope was advanced further down to the distal trachea, and there was no evidence of any abnormality in the pam. However, there was clearly, upon examination, no evidence of right upper lobe because the patient had previous right upper lobectomy, but I was able to visualize the right middle lobe, which seems to be in different position at this point, and the opening into the right middle lobe seems to be quite narrowed. Multiple biopsies were done from the right middle lobe bronchus since the mucosa was noted to be edematous and friable and lavage of the right middle lobe was performed and there was evidence of purulent secretions coming out from the medial and lateral segment of the right middle lobe. These secretions again were purulent and they were sent for different diagnostic studies. Then went down and evaluated the right lower lobe, which was unremarkable. Left upper lobe lingula and left lower lobe were also unremarkable. Procedure was well tolerated, no complications, the fluid was sent for the diagnostic studies and the biopsies from the right middle lobe bronchus are also pending. MMODL / IJN: [id number] /
--- NOTE | 2023-10-01 13:24 | P.PN ---
Subjective Progress Note Date: 10/01/23 patient is a 57-year-old lady with past medical history significant for right upper lobe non-small cell lung carcinoma status post robotic-assisted VATS involving a right upper lobectomy on 08/19/23 who presented to the ER because of abnormal computed tomography scan findings and persistent shortness of breath. Patient had recent VATS of right upper lobe surgery done in August, post operative course was complicated by persistent right-sided pneumothorax and opacification of the right mid lung area. After the surgery patient stated that she was not feeling well. Patient has been having worsening shortness of breath on exertion. Patient was also having productive cough which with green colored phlegm. Patient was also having fevers at home. Patient was being followed up closely by pulmonology as listed per CT surgery in outpatient settings. Because of these symptoms, patient had outpatient computed tomography scan done which showed ocal severe consolidation of the right upper lobe measuring 7.7 cm with what appears to be a fluid density concerning for pulmonary abscess. There is an adjacent residual loculated small anterior upper lung pneumothorax measuring 4.5 cm. There is a possible secondary pulmonary abscess or cavitary necrosis with air-fluid level anterior right mid lung measuring 9.2 x 8.2 x 7.4 cm. because of these findings, patient was referred to the ER Initial lab work done in the ER showed WBC 16, hemoglobin 9.6, platelet count 694, sodium 1:30 potassium 3.2, BUN 12, creatinine 0.5, glucose 112 Chest x-ray done in the ER showed extensive pleural/parenchymal S2 with right possible pulmonary abscess and areas of severe pneumonia, loculated right apical pneumothorax may be filling with fluid now Patient admitted to medicine service 10/01. Patient seen and examined. Continues to have productive cough. Currently undergoing bronchoscopy today. IR has been consulted for pigtail catheter placement for lytic instillation and drainage of right upper foot pocket. Still having productive cough. Gets short of breath on exertion REVIEW OF SYSTEMS: CONSTITUTIONAL: No fever, no malaise,. CARDIOVASCULAR: Complaining of right-sided chest pressure, no palpitations, no syncope. PULMONARY: As mentioned above GASTROINTESTINAL: No diarrhea, no nausea, no vomiting, no abdominal pain. NEUROLOGICAL: No headaches, no weakness, PHYSICAL EXAMINATION: GENERAL: The patient is alert and oriented x3, not in any acute distress. Well developed, well nourished. HEENT: Pupils are round and equally reacting to light. EOMI. No scleral icterus. No conjunctival pallor. Normocephalic, atraumatic. No pharyngeal erythema. No thyromegaly. CARDIOVASCULAR: S1 and S2 present. No murmurs, rubs, or gallops. PULMONARY: Diminished breath sounds at the right lung base, nocrackles ABDOMEN: Soft, nontender, nondistended, normoactive bowel sounds. No palpable organomegaly. MUSCULOSKELETAL: No joint swelling or deformity. EXTREMITIES: No cyanosis, clubbing, or pedal edema. NEUROLOGICAL: Gross neurological examination did not reveal any focal deficits. SKIN: No rashes. Assessment and plan Bacterial pneumonia Lung abscess Hypokalemia Non-small cell lung cancer status post right upper lobectomy, done on 08/19/2023. Leukocytosis Residual right apical loculated pneumothorax Normocytic normochromic anemia Chronic obstructive pulmonary disease Former tobacco dependence Monitor vital signs Monitor CBC Monitor CMP Continue telemetry monitoring Follow-up on blood cultures Follow-up on sputum culture Aggressive bronchopulmonary hygiene Continue IV aztreonam and vancomycin Continue breathing treatments Pulmonology consulted, patient currently nothing by mouth, going for bronchoscopy today CT surgery following ID following IR has been consulted for pigtail catheter placement for lytic instillation and drainage of right upper foot pocket Labs and medication were reviewed.. Continue same treatment. Continue with symptomatic treatment. Resume home medication. Monitor labs and vitals. DVT and GI prophylaxis. Further recommendations as per clinical course of the patient Dictation was produced using [employer] dictation software. please excuse any grammatical, word or spelling errors. Objective - Vital Signs Vital signs: Vital Signs Temp 98.2 F 10/01/23 07:52 Pulse 116 H 10/01/23 09:14 Resp 20 10/01/23 08:11 BP 121/57 10/01/23 07:52 Pulse Ox 94 L 10/01/23 09:00 FiO2 Intake & Output 09/30/23 10/01/23 10/01/23 18:59 06:59 18:59 Intake Total 100 Balance 100 Intake: IV 100 Other: # Voids 1 2 - Labs CBC & Chem 7: 10/01/23 09:06 10/01/23 09:06 Labs: Microbiology - Last 24 Hours (Table) 09/29/23 16:40 Blood Culture - Preliminary Blood
--- NOTE | 2023-10-01 13:38 | CT ---
EXAMINATION TYPE: CT chest tube insertion DATE OF EXAM: 10/01/2023 1:11 PM CLINICAL INDICATION:Female, 57 years old with history of rt chest pigtail cath insertion; Rt chest pi gtail cath insertion., [facility] COMPARISON: 09/28/2023 TECHNIQUE: CT DLP: 1052 mGycm, Automated exposure control for dose reduction was used. Contrast used: mL of , none Oral contrast used: none ATTENDING: Brian Anderson D.O. PROCEDURE: Initial CT localizer images were taken which showed safest allowable access to the fluid collection i n the anterior right chest pleural space. The patient was prepped, draped in the usual sterile fashi on, and locally anesthetized. A needle was directed into the pleural space with return of admixture o f blood and debris. A guidewire was placed. Over guidewire exchange an 8-[place] pigtail catheter was placed into right anterior pleural effusion.. Approximately 3 cc mL of fluid was drained and sent to the lab for analysis. A vacuum drainage bag w as then attached the catheter. There was minimal blood loss and post-procedure hemostasis was achiev ed. The patient tolerated the procedure well without complication. Patient was transferred to the [facility] medical floor in stable condition. IMPRESSION: CT guided placement of a percutaneous pigtail drainage catheter the right pleural space.
--- NOTE | 2023-10-01 14:58 | P.PN ---
Subjective Progress Note Date: 10/01/23 Principal diagnosis: Right lung abscess/pneumonia I am seeing this patient in consultation today 09/30/2023 for suspected pulmonary abscess. 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 She did have a complicated postoperative hospital stay with a persistent right sided pneumothorax and opacification of the right midlung area. She has been closely followed up on an outpatient basis. She does follow Dr. Davey in the pulmonary office, and also had a office visit with Dr. Espino from cardiothoracic surgery on 09/17. She states that she has "not really been 100%" since surgery. More recently she has had symptoms of exertional shortness of breath, right-sided back pain, productive cough with yellow/green sputum sometimes pink tinged, and subjective fevers. She has received courses of Levaquin and doxycycline outpatient. A CT of the chest done 2 days ago demonstrated focal severe consolidation of the right upper lobe measuring 7.7 cm with what appears to be a fluid density concerning for pulmonary abscess. There is an adjacent residual loculated small anterior upper lung pneumothorax measu ring 4.5 cm. There is a possible secondary pulmonary abscess or cavitary necrosis with air-fluid level anterior right mid lung measuring 9.2 x 8.2 x 7.4 cm. For this reason, she was directed to the emergency room yesterday. Patient was given doses of Levaquin and vancomycin in the emergency room. She does have a penicillin ALLERGY. Bronchoscopy with BAL done on 08/23/2023 did not identify significant bacterial growth. CBC shows a WBC count of 16, hemoglobin 9.6, hematocrit 30.4, platelets 694. BMP on arrival shows sodium 133, potassium 3.2, chloride 83, serum bicarbonate 34, BUN 12, creatinine 0.5, glucose 112. Normal saline infusing at 130 ML's per hour. Lactic acid level I.9. Patient is currently lying in bed, on 2 L/m nasal cannula, in no acute distress. SPO2 97%. She is slightly tachycardic with a heart rate of 116 bpm. She was febrile with a T-max of 100F. Blood cultures pending. Hemodynamically stable. Patient was seen and examined today on 10/01/23, seems to be doing about the same, continues to have cough and shortness of breath. Cough is productive with thick yellow phlegm. Underwent a bronchoscopy today , please refer to the full operative report. Patient was found to have significant area and secretions coming out of the right middle lobe, mucosa in the right middle lobe was noted to be thick TX edematous, and has quite a bit of abnormal appearance, multiple biopsies from the right lobe bronchus were done, and lavage of the right middle lobe/medial segment was also performed. In the meantime the patient remains on antibiotics, and these will likely be adjusted based on the final culture from the BAL. Patient continues to have leukocytosis with WBC count of 17.9 hemoglobin 8.9, basic metabolic profile is normal Objective - Vital Signs Vital signs: Vital Signs Temp 98.2 F 10/01/23 07:52 Pulse 102 H 10/01/23 13:20 Resp 18 10/01/23 12:45 BP 117/70 10/01/23 13:20 Pulse Ox 96 10/01/23 13:20 FiO2 Intake & Output 09/30/23 10/01/23 10/01/23 18:59 06:59 18:59 Intake Total 100 Balance 100 Weight 63.957 kg Intake: IV 100 Other: # Voids 1 2 1 - Exam Physical Exam: Revealed a 57-year-old female in no distress 2 L nasal cannula and O2 saturation is 96 up to 98% Head: Atraumatic, normocephalic. HEENT:[Neck is supple.] [No neck masses.] [No thyromegaly.] [No JVD.] Chest: [Rhonchi noted on the right side. Left side is relatively clear Cardiac Exam: [Normal S1 and S2, no S3 gallop, no murmur.] Abdomen: [Soft, nontender, no megaly, no rebound, no guarding, normal bowel sounds.] Extremities: [No clubbing, no edema, no cyanosis.] Neurological Exam: [No focal neurologic deficit.] Alert oriented 3 Psychiatric: Normal mood affect and normal mental status examination - Labs CBC & Chem 7: 10/01/23 09:06 10/01/23 09:06 Labs: Abnormal Lab Results - Last 24 Hours (Table) 10/01/23 10/01/23 10/01/23 Range/Units 09:06 09:06 09:06 WBC 17.9 H (3.8-10.6) k/uL RBC 3.36 L (3.80-5.40) m/uL Hgb 8.9 L (11.4-16.0) gm/dL Hct 29.7 L (34.0-46.0) % MCHC 30.1 L (31.0-37.0) g/dL Plt Count 664 H (150-450) k/uL Neutrophils # 14.7 H (1.3-7.7) k/uL Sodium 134 L (137-145) mmol/L Chloride 93 L (98-107) mmol/L Carbon Dioxide 31 H (22-30) mmol/L Creatinine 0.42 L (0.52-1.04) mg/dL Glucose 101 H (74-99) mg/dL Calcium 8.1 L (8.4-10.2) mg/dL AST 44 H (14-36) U/L Alkaline Phosphatase 313 H (38-126) U/L Total Protein 6.0 L 6.0 L (6.3-8.2) g/dL Albumin 2.6 L (3.5-5.0) g/dL Microbiology - Last 24 Hours (Table) 09/29/23 16:40 Blood Culture - Preliminary Blood Assessment and Plan Assessment: Impression: Non-small cell lung cancer status post right upper lobectomy, done on 08/19/2023. Two regional hilar lymph nodes were positive for metastasis. No other lymph nodes involved. Post-operative hospital stay was complicated by persistent residual right apical pneumothorax. During this hospitalization, she did have a follow-up bronchoscopy with BAL done on 08/31/2023, which did not isolate any bacterial organisims. Likely secondary lung abscess, A CT of the chest done 2 days ago demonstrated focal severe consolidation of the right upper lobe measuring 7.7 cm with what appears to be a fluid density concerning for pulmonary abscess. There is an adjacent residual loculated small anterior upper lung pneumothorax measuring 4.5 cm. There is a possible second pulmonary abscess or cavitary necrosis with air- fluid level anterior right mid lung measuring 9.2 x 8.2 x 7.4 cm. Leukocytosis Residual right apical loculated pneumothorax, as described above Hypokalemia, being replaced Normocytic normochromic anemia, without any obvious blood loss Chronic obstructive pulmonary disease, with a FEV1 53% of predicted, stable. Former tobacco dependence Recommendation: Patient underwent bronchoscopy and BAL as well as endobronchial biopsies of the right lobe Patient will remain on antibiotics for now Continue bronchodilators Continue oxygen Patient is being followed by many consultants including thoracic surgery and infectious disease on the case. We will continue to follow Time with Patient: Less than 30
[2023-10-01] MEDS ORDERED: ALTEPLASE 10 MG in SODIUM CHLORIDE 0.9% 50 ML IRRIGATION ONE (15:00)
[2023-10-01] MEDS ORDERED: DORNASE ALFA 5 MG in SODIUM CHLORIDE 0.9% 50 ML IRRIGATION ONE (15:00)
--- NOTE | 2023-10-01 15:37 | P.PN ---
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 the patient is status post robotic assisted right upper lobectomy on 08/19/2023, now presented to hospital with persistent cough shortness of breath did have a low-grade fever abnormal CT suspicious for possible pneumonia/lung abscess, the patient is status post bronchoscopy by pulmonary and patient also have a pigtail catheter placed in by IR On today's evaluation that is 10/01/2023, the patient denies any fever or any chills, the patient is breathing comfortably on room air without the need for supplemental oxygen, patient has been complaining of some right-sided chest pain however denies any worsening cough or sputum production, patient denies Abdominal pain, no nausea/vomiting and denies having any diarrhea Patient white count is 17.9, creatinine 0.42 Objective - Vital Signs Vital signs: Vital Signs Temp 98.2 F 10/01/23 07:52 Pulse 110 H 10/01/23 12:23 Resp 20 10/01/23 12:23 BP 118/65 10/01/23 12:23 Pulse Ox 95 10/01/23 12:23 FiO2 Intake & Output 09/30/23 10/01/23 10/01/23 18:59 06:59 18:59 Intake Total 100 Balance 100 Weight 63.957 kg Intake: IV 100 Other: # Voids 1 2 1 - Exam GENERAL DESCRIPTION: A middle-age female up in bed in no distress RESPIRATORY SYSTEM: Unlabored breathing , decreased breath sounds at the base HEART: S1 S2 regular rate and rhythm , ABDOMEN: Soft , no tenderness EXTREMITIES: No edema feet - Labs CBC & Chem 7: 10/01/23 09:06 10/01/23 09:06 Labs: Abnormal Lab Results - Last 24 Hours (Table) 10/01/23 10/01/23 Range/Units 09:06 09:06 WBC 17.9 H (3.8-10.6) k/uL RBC 3.36 L (3.80-5.40) m/uL Hgb 8.9 L (11.4-16.0) gm/dL Hct 29.7 L (34.0-46.0) % MCHC 30.1 L (31.0-37.0) g/dL Plt Count 664 H (150-450) k/uL Neutrophils # 14.7 H (1.3-7.7) k/uL Sodium 134 L (137-145) mmol/L Chloride 93 L (98-107) mmol/L Carbon Dioxide 31 H (22-30) mmol/L Creatinine 0.42 L (0.52-1.04) mg/dL Glucose 101 H (74-99) mg/dL Calcium 8.1 L (8.4-10.2) mg/dL AST 44 H (14-36) U/L Alkaline Phosphatase 313 H (38-126) U/L Total Protein 6.0 L (6.3-8.2) g/dL Albumin 2.6 L (3.5-5.0) g/dL Microbiology - Last 24 Hours (Table) 09/29/23 16:40 Blood Culture - Preliminary Blood Assessment and Plan (1) Pneumonia Current Visit: Yes Status: Acute Code(s): J18.9 - PNEUMONIA, UNSPECIFIED ORGANISM SNOMED Code(s): 637403348 (2) Allergy to multiple antibiotics Current Visit: Yes Status: Acute Code(s): Z88.1 - ALLERGY STATUS TO OTHER ANTIBIOTIC AGENTS SNOMED Code(s): 569257577 (3) Lung abscess Current Visit: Yes Status: Acute Code(s): J85.2 - ABSCESS OF LUNG WITHOUT PNEUMONIA SNOMED Code(s): 07237927 Plan: 1patient presented to hospital with sepsis in this patient who did have a fever tachycardia hypoxemia elevated white count source is unlikely pneumonia with question of possible abscess/empyema in this patient with recent surgery we will need to cover for resistant gram-positive as well as gram-negative pathogen. 2patient with the penicillin and cephalosporin allergy that would limit the number of antibiotics safe to use. 3-patient is status post bronchoscopy lavage and also have placement of a pigtail catheter by IR 4patient to continue with the vancomycin pharmacy to dose however and Azactam 2 g every 8 hours, while waiting for the cultures to finalize Dictation was produced using [employer] dictation software. please excuse any grammatical, word or spelling errors. Time with Patient: Less than 30
[2023-10-01] MEDS: METOPROLOL TARTRATE 25 MG TAB PO SCH (16:37)
[2023-10-02] MEDS: HYDROmorphone 0.5 MG/0.5 ML SYRINGE IVP PRN ×7 (03:21→22:44)
[2023-10-02] MEDS: SODIUM CHLORIDE 0.9% 1,000 ML IV SCH ×3 (04:52→15:55)
[2023-10-02] MEDS: PANTOPRAZOLE 40 MG TABLET PO SCH (06:12)
[2023-10-02] MEDS ORDERED: VANCOMYCIN TROUGH DUE 1 EACH MISC MISCELLANE ONE (07:00)
[2023-10-02] MEDS: IPRATROPIUM-ALBUTEROL 3 ML NEB INHALATION SCH ×4 (07:17→20:18)
[2023-10-02] MEDS: ACETYLCYSTEINE 800 MG/4 ML VIAL INHALATION SCH ×4 (07:18→20:17)
--- NOTE | 2023-10-02 07:22 | XR ---
EXAMINATION TYPE: XR chest 2V DATE OF EXAM: 10/02/2023 COMPARISON: 10/01/2023 HISTORY: Shortness of breath TECHNIQUE: Frontal and lateral views of the chest are obtained. FINDINGS: Scattered senescent parenchymal changes noted. Hyperinflation compatible with COPD. Persistent right apical increased opacity with air-fluid level seen. Additional air-fluid level noted within the right suprahilar region with catheter in place. Surrounding infiltrate as well as right b asilar subpulmonic effusion. The left lung is clear. Mediastinal structures are stable and grossly un remarkable. No evidence for hilar prominence. Degenerative changes dorsal spine. IMPRESSION: 1. Persistent right apical increased opacity with air-fluid level seen. Additional air-fluid level no kati within the right suprahilar region with catheter in place. Surrounding infiltrate as well as righ t basilar subpulmonic effusion.
[2023-10-02] MEDS ORDERED: bisacodyL 10 MG SUPP RECTAL PRN (07:30)
[2023-10-02] MEDS ORDERED: MAGNESIUM HYDROXIDE 2,400 MG/30 ML CUP PO PRN (07:30)
--- NOTE | 2023-10-02 07:35 | P.PN ---
Subjective Progress Note Date: 10/02/23 Principal diagnosis: Pneumonia with possible lung abscess, small right pleural effusion, residual loculated small anterior upper lung pneumothorax, leukocytosis, normocytic normochromic anemia. History of non-small cell carcinoma with neuroendocrine differentiation, consistent with large cell neuroendocrine carcinoma status post robotic-assisted right upper lobectomy on 08/19/2023 and subsequent bronchoscopy with placement of right thoracostomy tube, chronic tobacco dependence with recent cessation, COPD, asthma, hyperlipidemia, GERD, diverticulitis status post bowel resection, osteoarthritis The patient was seen and examined sitting up in a recliner eating breakfast on the cardiac stepdown unit in no acute distress. States she feels a little better than yesterday. Still has frequent productive cough and some shortness of breath. Has remained afebrile, vitals stable, currently on 2 LPM NC with oxygen saturation in the low to mid 90s. Only able to achieve 500 mL on incentive spirometer this morning. Has been ambulatory in the room. Remains on IV antibiotics per infectious disease, sputum/blood cultures pending. Had bronchoscopy yesterday by Dr. Davey with biopsies taken of the right middle lobe along with suctioning of purulent secretions with sample sent for culture. Following that we had a pigtail catheter placed by IR and lytics were instilled to liquify and remove abcess. Patient has drained 650 mL purulent drainage although patient had increased coughing and shortness of breath following lytic instillation and is refusing any further instillation. CXR reviewed this morning. Objective - Vital Signs Vital signs: Vital Signs Temp 98.3 F 10/02/23 03:40 Pulse 100 10/02/23 07:19 Resp 24 10/02/23 03:40 BP 105/57 10/02/23 03:40 Pulse Ox 92 L 10/02/23 03:40 FiO2 Intake & Output 10/01/23 10/02/23 10/02/23 18:59 06:59 18:59 Intake Total 100 Output Total 510 430 Balance -410 -430 Weight 63.957 kg Intake: IV 100 Output: Chest Tube Drainage 340 430 Chest Tube Right Upper 340 430 Anterior Chest Drainage 170 Right Upper Anterior 170 Chest Other: # Voids 2 1 - Exam CONSTITUTIONAL: Appears comfortable, cooperative, no acute distress RESPIRATORY: Lungs sounds diminished on the right. Respirations even, nonlabor ed. Currently on 2 LPM NC with oxygen saturation 92%. Able to achieve 500 mL on incentive spirometry. Strong productive cough. CARDIOVASCULAR: S1, S2 present. Regular rate and rhythm, sinus rhythm to sinus tach on telemetry. Palpable peripheral pulses bilaterally. No edema present. No calf pain or tenderness noted GASTROINTESTINAL: Abdomen soft, nontender, nondistended. Active bowel sounds present 4 quadrants. Tolerating minimal diet. No bowel movement since admission GENITOURINARY: Continues to void INTEGUMENTARY: Skin is warm and dry. Thoracic incisions well approximated NEUROLOGIC: Cranial nerves II through XII intact MUSKULOSKELETAL: Able to move all extremities, strength equal bilaterally, gait normal PSYCHIATRIC: Alert and oriented to person place and time, appropriate affect, intact judgment and insight INVASIVE TUBES: Right sided pigtail catheter present to continuous wall suction, 650 mL purulent drainage present - Allied health notes Allied health notes reviewed: nursing - Labs CBC & Chem 7: 10/01/23 09:06 10/01/23 09:06 Labs: Abnormal Lab Results - Last 24 Hours (Table) 10/01/23 10/01/23 10/01/23 Range/Units 09:06 09:06 09:06 WBC 17.9 H (3.8-10.6) k/uL RBC 3.36 L (3.80-5.40) m/uL Hgb 8.9 L (11.4-16.0) gm/dL Hct 29.7 L (34.0-46.0) % MCHC 30.1 L (31.0-37.0) g/dL Plt Count 664 H (150-450) k/uL Neutrophils # 14.7 H (1.3-7.7) k/uL Sodium 134 L (137-145) mmol/L Chloride 93 L (98-107) mmol/L Carbon Dioxide 31 H (22-30) mmol/L Creatinine 0.42 L (0.52-1.04) mg/dL Glucose 101 H (74-99) mg/dL Calcium 8.1 L (8.4-10.2) mg/dL AST 44 H (14-36) U/L Alkaline Phosphatase 313 H (38-126) U/L Total Protein 6.0 L 6.0 L (6.3-8.2) g/dL Albumin 2.6 L (3.5-5.0) g/dL Microbiology - Last 24 Hours (Table) 10/01/23 08:40 Gram Stain - Preliminary Bronchoalviolar Lavage - Right 10/01/23 13:00 Gram Stain - Preliminary Pleural Fluid 09/29/23 16:40 Blood Culture - Preliminary Blood - Imaging and Cardiology Chest x-ray: image reviewed Assessment and Plan Assessment: Pneumonia with possible lung abscess, status post bronchoscopy and right sided pigtail catheter placement Small right pleural effusion, residual loculated small anterior upper lung pneumothorax Leukocytosis, secondary to above Normocytic normochromic anemia Non-small cell carcinoma with neuroendocrine differentiation, consistent with large cell neuroendocrine carcinoma status post robotic-assisted right upper lobectomy on 08/19/2023 and subsequent bronchoscopy with placement of right thoracostomy tube Chronic tobacco dependence with recent cessation COPD, FEV1 87%, DLCO 55% Asthma Hyperlipidemia GERD Diverticulitis status post bowel resection Osteoarthritis Plan: Continue to monitor output from pigtail catheter, patient refusing any further lytic instillation Continue IV antibiotics per infectious disease, await blood/sputum culture finalization Will monitor daily labs, CXR Wean oxygen as tolerated, encourage use of incentive spirometry 10 times every hour while awake Increase activity as tolerated, out of bed for all meals Pain control per current medication regimen Reinforced continued smoking cessation Continue Mucinex, patient refusing mucomyst Bronchodilator per hotel night auditor No surgical intervention planned at this time Medical management of other comorbidities per internal medicine, pulmonology, ID More recommendations to follow based on patient's clinical course
[2023-10-02] MEDS: guaiFENesin 600 MG TABLET.ER PO SCH ×2 (08:50→19:45)
[2023-10-02] MEDS: VANCOMYCIN 1,250 MG in SODIUM CHLORIDE 0.9% 250 ML IVPB SCH ×2 (08:50→19:50)
[2023-10-02] MEDS: METOPROLOL TARTRATE 25 MG TAB PO SCH ×2 (08:50→19:45)
[2023-10-02 09:26] LABS: HCT 26.8 % (34.0-46.0); HGB 7.9 gm/dL (11.4-16.0); Hypochromasia Marked; MCH 26.5 pg (25.0-35.0); MCHC 29.7 g/dL (31.0-37.0); MCV 89.2 fL (80.0-100.0); Mean Platelet Volume 7.4; Platelet Count 550 k/uL (150-450); RDW 14.3 % (11.5-15.5); WBC 6.2 k/uL (3.8-10.6)
[2023-10-02 09:43] LABS: ALT 26 U/L (4-34); AST 28 U/L (14-36); African American GFR (CKD) >90 (>60 ml/min/1.73 sqM); Albumin 2.4 g/dL (3.5-5.0); Alkaline Phosphatase 256 U/L (38-126); Anion Gap 7 mmol/L; Blood Urea Nitrogen 5 mg/dL (7-17); Calcium 8.1 mg/dL (8.4-10.2); Carbon Dioxide 34 mmol/L (22-30); Chloride 95 mmol/L (98-107); Glucose 103 mg/dL (74-99); Non-African American GFR(CKD) >90 (>60 ml/min/1.73 sqM); Potassium 3.2 mmol/L (3.5-5.1); Sodium 136 mmol/L (137-145); Total Bilirubin 0.3 mg/dL (0.2-1.3); Total Protein 5.7 g/dL (6.3-8.2)
[2023-10-02] MEDS: AZTREONAM 2 GM in SODIUM CHLORIDE 0.9% 100 ML IVPB SCH ×2 (11:23→15:53)
--- NOTE | 2023-10-02 12:56 | P.PN ---
Subjective Progress Note Date: 10/02/23 patient is a 57-year-old lady with past medical history significant for right upper lobe non-small cell lung carcinoma status post robotic-assisted VATS involving a right upper lobectomy on 08/19/23 who presented to the ER because of abnormal computed tomography scan findings and persistent shortness of breath. Patient had recent VATS of right upper lobe surgery done in August, post operative course was complicated by persistent right-sided pneumothorax and opacification of the right mid lung area. After the surgery patient stated that she was not feeling well. Patient has been having worsening shortness of breath on exertion. Patient was also having productive cough which with green colored phlegm. Patient was also having fevers at home. Patient was being followed up closely by pulmonology as listed per CT surgery in outpatient settings. Because of these symptoms, patient had outpatient computed tomography scan done which showed ocal severe consolidation of the right upper lobe measuring 7.7 cm with what appears to be a fluid density concerning for pulmonary abscess. There is an adjacent residual loculated small anterior upper lung pneumothorax measuring 4.5 cm. There is a possible secondary pulmonary abscess or cavitary necrosis with air-fluid level anterior right mid lung measuring 9.2 x 8.2 x 7.4 cm. because of these findings, patient was referred to the ER Initial lab work done in the ER showed WBC 16, hemoglobin 9.6, platelet count 694, sodium 1:30 potassium 3.2, BUN 12, creatinine 0.5, glucose 112 Chest x-ray done in the ER showed extensive pleural/parenchymal S2 with right possible pulmonary abscess and areas of severe pneumonia, loculated right apical pneumothorax may be filling with fluid now Patient admitted to medicine service 10/01. Patient seen and examined. Continues to have productive cough. Currently undergoing bronchoscopy today. IR has been consulted for pigtail catheter placement for lytic instillation and drainage of right upper foot pocket. Still having productive cough. Gets short of breath on exertion 10/02. Patient seen and examined. Patient had pigtail catheter in place on right side. States breathing is improving. Continues to have productive cough. Tachycardia is improving. Currently on 2 L of oxygen REVIEW OF SYSTEMS: CONSTITUTIONAL: No fever, no malaise,. CARDIOVASCULAR: no palpitations, no syncope. PULMONARY: As mentioned above GASTROINTESTINAL: No diarrhea, no nausea, no vomiting, no abdominal pain. NEUROLOGICAL: No headaches, no weakness, PHYSICAL EXAMINATION: GENERAL: The patient is alert and oriented x3, not in any acute distress. Well developed, well nourished. HEENT: Pupils are round and equally reacting to light. EOMI. No scleral icterus. No conjunctival pallor. Normocephalic, atraumatic. No pharyngeal erythema. No thyromegaly. CARDIOVASCULAR: S1 and S2 present. No murmurs, rubs, or gallops. PULMONARY: Coarse breath sounds bilaterally, no crackles, pigtail catheter in place on right side ABDOMEN: Soft, nontender, nondistended, normoactive bowel sounds. No palpable organomegaly. MUSCULOSKELETAL: No joint swelling or deformity. EXTREMITIES: No cyanosis, clubbing, or pedal edema. NEUROLOGICAL: Gross neurological examination did not reveal any focal deficits. SKIN: No rashes. Assessment and plan Bacterial pneumonia Lung abscess Hypokalemia Non-small cell lung cancer status post right upper lobectomy, done on 08/19/2023. Leukocytosis Residual right apical loculated pneumothorax Normocytic normochromic anemia Chronic obstructive pulmonary disease Former tobacco dependence Monitor vital signs Monitor CBC Monitor CMP Continue telemetry monitoring Follow-up on blood cultures Follow-up on sputum culture Potassium replacement has been ordered Aggressive bronchopulmonary hygiene Status post pigtail catheter placement with lytic instillation Continue IV aztreonam and vancomycin Continue breathing treatments CT surgery following ID following Labs and medication were reviewed.. Continue same treatment. Continue with symptomatic treatment. Resume home medication. Monitor labs and vitals. DVT and GI prophylaxis. Further recommendations as per clinical course of the patient Dictation was produced using [employer] dictation software. please excuse any grammatical, word or spelling errors. Objective - Vital Signs Vital signs: Vital Signs Temp 97.9 F 10/02/23 08:00 Pulse 103 H 10/02/23 11:29 Resp 20 10/02/23 08:00 BP 100/63 10/02/23 08:00 Pulse Ox 98 10/02/23 08:00 FiO2 Intake & Output 10/01/23 10/02/23 10/02/23 18:59 06:59 18:59 Intake Total 100 Output Total 510 430 Balance -410 -430 Weight 63.957 kg Intake: IV 100 Output: Chest Tube Drainage 340 430 Chest Tube Right Upper 340 430 Anterior Chest Drainage 170 Right Upper Anterior 170 Chest Other: # Voids 2 1 1 # Bowel Movements 1 - Labs CBC & Chem 7: 10/02/23 07:37 10/02/23 07:37 Labs: Abnormal Lab Results - Last 24 Hours (Table) 10/01/23 10/02/23 10/02/23 Range/Units 09:06 07:37 07:37 RBC 3.00 L (3.80-5.40) m/uL Hgb 7.9 L (11.4-16.0) gm/dL Hct 26.8 L (34.0-46.0) % MCHC 29.7 L (31.0-37.0) g/dL Plt Count 550 H (150-450) k/uL Sodium 136 L (137-145) mmol/L Potassium 3.2 L (3.5-5.1) mmol/L Chloride 95 L (98-107) mmol/L Carbon Dioxide 34 H (22-30) mmol/L BUN 5 L (7-17) mg/dL Creatinine 0.46 L (0.52-1.04) mg/dL Glucose 103 H (74-99) mg/dL Calcium 8.1 L (8.4-10.2) mg/dL Alkaline Phosphatase 256 H (38-126) U/L Total Protein 6.0 L 5.7 L (6.3-8.2) g/dL Albumin 2.4 L (3.5-5.0) g/dL Microbiology - Last 24 Hours (Table) 09/30/23 15:30 Gram Stain - Preliminary Sputum 10/01/23 08:40 Gram Stain - Preliminary Bronchoalviolar Lavage - Right 10/01/23 13:00 Gram Stain - Preliminary Pleural Fluid 09/29/23 16:40 Blood Culture - Preliminary Blood
[2023-10-02] MEDS ORDERED: POTASSIUM CHLORIDE ER 20 MEQ TAB.ER PO STA (13:02)
--- NOTE | 2023-10-02 14:52 | P.PN ---
Subjective Progress Note Date: 10/02/23 Principal diagnosis: Right lung abscess/pneumonia I am seeing this patient in consultation today 09/30/2023 for suspected pulmonary abscess. 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 She did have a complicated postoperative hospital stay with a persistent right sided pneumothorax and opacification of the right midlung area. She has been closely followed up on an outpatient basis. She does follow Dr. Davey in the pulmonary office, and also had a office visit with Dr. Espino from cardiothoracic surgery on 09/17. She states that she has "not really been 100%" since surgery. More recently she has had symptoms of exertional shortness of breath, right-sided back pain, productive cough with yellow/green sputum sometimes pink tinged, and subjective fevers. She has received courses of Levaquin and doxycycline outpatient. A CT of the chest done 2 days ago demonstrated focal severe consolidation of the right upper lobe measuring 7.7 cm with what appears to be a fluid density concerning for pulmonary abscess. There is an adjacent residual loculated small anterior upper lung pneumothorax measu ring 4.5 cm. There is a possible secondary pulmonary abscess or cavitary necrosis with air-fluid level anterior right mid lung measuring 9.2 x 8.2 x 7.4 cm. For this reason, she was directed to the emergency room yesterday. Patient was given doses of Levaquin and vancomycin in the emergency room. She does have a penicillin ALLERGY. Bronchoscopy with BAL done on 08/23/2023 did not identify significant bacterial growth. CBC shows a WBC count of 16, hemoglobin 9.6, hematocrit 30.4, platelets 694. BMP on arrival shows sodium 133, potassium 3.2, chloride 83, serum bicarbonate 34, BUN 12, creatinine 0.5, glucose 112. Normal saline infusing at 130 ML's per hour. Lactic acid level I.9. Patient is currently lying in bed, on 2 L/m nasal cannula, in no acute distress. SPO2 97%. She is slightly tachycardic with a heart rate of 116 bpm. She was febrile with a T-max of 100F. Blood cultures pending. Hemodynamically stable. Patient was seen and examined today on 10/01/23, seems to be doing about the same, continues to have cough and shortness of breath. Cough is productive with thick yellow phlegm. Underwent a bronchoscopy today , please refer to the full operative report. Patient was found to have significant area and secretions coming out of the right middle lobe, mucosa in the right middle lobe was noted to be thick NM edematous, and has quite a bit of abnormal appearance, multiple biopsies from the right lobe bronchus were done, and lavage of the right middle lobe/medial segment was also performed. In the meantime the patient remains on antibiotics, and these will likely be adjusted based on the final culture from the BAL. Patient continues to have leukocytosis with WBC count of 17.9 hemoglobin 8.9, basic metabolic profile is normal Reevaluated today on 10/02/23, patient was seen by interventional radiology yesterday, and she underwent placement of a pigtail catheter into her right lung. Significant purulent drainage is noted into the pleural VAC, chest x-ray is showing improvement, clinically the patient is feeling better, remains on antibiotics, cultures are pending however the Gram stain is showing gram- positive cocci and that is from the pleural effusion fluid. BAL Gram stain is showing moderate PMNs and mixed organisms including gram-negative bacilli and gram-positive cocci. Patient is tolerating antibiotics well, and apparently she had one of placed treatment into the lung. Abscess. Patient refusing to have any more. WBC count is down today to 6.2 from 17.9 hemoglobin is 7.9, basic metabolic profile is normal. Renal profile is normal patient remains in the meantime on vancomycin and on aztreonam. Objective - Vital Signs Vital signs: Vital Signs Temp 98.0 F 10/02/23 12:00 Pulse 101 H 10/02/23 12:00 Resp 18 10/02/23 12:00 BP 105/70 10/02/23 12:00 Pulse Ox 100 10/02/23 12:00 FiO2 Intake & Output 10/01/23 10/02/23 10/02/23 18:59 06:59 18:59 Intake Total 100 Output Total 510 430 Balance -410 -430 Weight 63.957 kg Intake: IV 100 Output: Chest Tube Drainage 340 430 Chest Tube Right Upper 340 430 Anterior Chest Drainage 170 Right Upper Anterior 170 Chest Other: # Voids 2 1 1 # Bowel Movements 1 - Exam Physical Exam: Revealed a 57-year-old female in no distress 2 L nasal cannula and O2 saturation is 96 up to 98% Head: Atraumatic, normocephalic. HEENT:[Neck is supple.] [No neck masses.] [No thyromegaly.] [No JVD.] Chest: [Diminished breath sounds on the right side, pigtail catheter is noted, purulent material noted in the pleural VAC Cardiac Exam: [Normal S1 and S2, no S3 gallop, no murmur.] Abdomen: [Soft, nontender, no megaly, no rebound, no guarding, normal bowel sounds.] Extremities: [No clubbing, no edema, no cyanosis.] Neurological Exam: [No focal neurologic deficit.] Alert oriented 3 Psychiatric: Normal mood affect and normal mental status examination - Labs CBC & Chem 7: 10/02/23 07:37 10/02/23 07:37 Labs: Abnormal Lab Results - Last 24 Hours (Table) 10/02/23 10/02/23 Range/Units 07:37 07:37 RBC 3.00 L (3.80-5.40) m/uL Hgb 7.9 L (11.4-16.0) gm/dL Hct 26.8 L (34.0-46.0) % MCHC 29.7 L (31.0-37.0) g/dL Plt Count 550 H (150-450) k/uL Sodium 136 L (137-145) mmol/L Potassium 3.2 L (3.5-5.1) mmol/L Chloride 95 L (98-107) mmol/L Carbon Dioxide 34 H (22-30) mmol/L BUN 5 L (7-17) mg/dL Creatinine 0.46 L (0.52-1.04) mg/dL Glucose 103 H (74-99) mg/dL Calcium 8.1 L (8.4-10.2) mg/dL Alkaline Phosphatase 256 H (38-126) U/L Total Protein 5.7 L (6.3-8.2) g/dL Albumin 2.4 L (3.5-5.0) g/dL Microbiology - Last 24 Hours (Table) 09/30/23 15:30 Gram Stain - Preliminary Sputum 10/01/23 08:40 Gram Stain - Preliminary Bronchoalviolar Lavage - Right 10/01/23 13:00 Gram Stain - Preliminary Pleural Fluid 09/29/23 16:40 Blood Culture - Preliminary Blood Assessment and Plan Assessment: Impression: Non-small cell lung cancer status post right upper lobectomy, done on 08/19/2023. Two regional hilar lymph nodes were positive for metastasis. No other lymph nodes involved. Post-operative hospital stay was complicated by persistent residual right apical pneumothorax. During this hospitalization, she did have a follow-up bronchoscopy with BAL done on 08/31/2023, which did not isolate any bacterial organisims. Likely secondary lung abscess, A CT of the chest done 2 days ago demonstrated focal severe consolidation of the right upper lobe measuring 7.7 cm with what appears to be a fluid density concerning for pulmonary abscess. There is an adjacent residual loculated small anterior upper lung pneumothorax measuring 4.5 cm. There is a possible second pulmonary abscess or cavitary necrosis with air- fluid level anterior right mid lung measuring 9.2 x 8.2 x 7.4 cm. status post bronchoscopy and status post pigtail catheter placement into the lung abscess with definite improvement clinically and improvement noted in chest x-ray. Leukocytosis Residual right apical loculated pneumothorax, as described above Hypokalemia, being replaced Normocytic normochromic anemia, without any obvious blood loss Chronic obstructive pulmonary disease, with a FEV1 53% of predicted, stable. Former tobacco dependence Recommendation: Continue antibiotics including vancomycin and aztreonam Changes antibiotics after the final culture from the lung abscess available. Continue bronchodilators Continue oxygen, titrate accordingly Patient may need to be on long-term antibiotics and that will be decided upon later depending on the final culture We will continue to follow Time with Patient: Less than 30
--- NOTE | 2023-10-02 17:05 | P.PN ---
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 the patient is status post robotic assisted right upper lobectomy on 08/19/2023, now presented to hospital with persistent cough shortness of breath did have a low-grade fever abnormal CT suspicious for possible pneumonia/lung abscess, the patient is status post bronchoscopy by pulmonary and patient also have a pigtail catheter placed in by IR On today's evaluation that is 10/02/2023, the patient is afebrile , the patient is breathing comfortably on room air , patien right-sided chest pain has decreased in intensity, Pt denies any worsening cough or sputum production, patient denies Abdominal pain, no nausea/vomiting and denies having any diarrhea Patient white count normalized to 6.2, creatinine 0.46 Objective - Vital Signs Vital signs: Vital Signs Temp 98.3 F 10/02/23 03:40 Pulse 103 H 10/02/23 07:31 Resp 24 10/02/23 03:40 BP 105/57 10/02/23 03:40 Pulse Ox 92 L 10/02/23 03:40 FiO2 Intake & Output 10/01/23 10/02/23 10/02/23 18:59 06:59 18:59 Intake Total 100 Output Total 510 430 Balance -410 -430 Weight 63.957 kg Intake: IV 100 Output: Chest Tube Drainage 340 430 Chest Tube Right Upper 340 430 Anterior Chest Drainage 170 Right Upper Anterior 170 Chest Other: # Voids 2 1 - Exam GENERAL DESCRIPTION: A middle-age female up in bed in no distress RESPIRATORY SYSTEM: Unlabored breathing , decreased breath sounds at the base HEART: S1 S2 regular rate and rhythm , ABDOMEN: Soft , no tenderness EXTREMITIES: No edema feet - Labs CBC & Chem 7: 10/02/23 07:37 10/02/23 07:37 Labs: Abnormal Lab Results - Last 24 Hours (Table) 10/01/23 10/01/23 10/02/23 Range/Units 09:06 09:06 07:37 WBC 17.9 H (3.8-10.6) k/uL RBC 3.36 L (3.80-5.40) m/uL Hgb 8.9 L (11.4-16.0) gm/dL Hct 29.7 L (34.0-46.0) % MCHC 30.1 L (31.0-37.0) g/dL Plt Count 664 H (150-450) k/uL Neutrophils # 14.7 H (1.3-7.7) k/uL Sodium 136 L (137-145) mmol/L Potassium 3.2 L (3.5-5.1) mmol/L Chloride 95 L (98-107) mmol/L Carbon Dioxide 34 H (22-30) mmol/L BUN 5 L (7-17) mg/dL Creatinine 0.46 L (0.52-1.04) mg/dL Glucose 103 H (74-99) mg/dL Calcium 8.1 L (8.4-10.2) mg/dL Alkaline Phosphatase 256 H (38-126) U/L Total Protein 6.0 L 5.7 L (6.3-8.2) g/dL Albumin 2.4 L (3.5-5.0) g/dL 10/02/23 Range/Units 07:37 WBC (3.8-10.6) k/uL RBC 3.00 L (3.80-5.40) m/uL Hgb 7.9 L (11.4-16.0) gm/dL Hct 26.8 L (34.0-46.0) % MCHC 29.7 L (31.0-37.0) g/dL Plt Count 550 H (150-450) k/uL Neutrophils # (1.3-7.7) k/uL Sodium (137-145) mmol/L Potassium (3.5-5.1) mmol/L Chloride (98-107) mmol/L Carbon Dioxide (22-30) mmol/L BUN (7-17) mg/dL Creatinine (0.52-1.04) mg/dL Glucose (74-99) mg/dL Calcium (8.4-10.2) mg/dL Alkaline Phosphatase (38-126) U/L Total Protein (6.3-8.2) g/dL Albumin (3.5-5.0) g/dL Microbiology - Last 24 Hours (Table) 10/01/23 08:40 Gram Stain - Preliminary Bronchoalviolar Lavage - Right 10/01/23 13:00 Gram Stain - Preliminary Pleural Fluid 09/29/23 16:40 Blood Culture - Preliminary Blood Assessment and Plan (1) Pneumonia Current Visit: Yes Status: Acute Code(s): J18.9 - PNEUMONIA, UNSPECIFIED ORG ANISM SNOMED Code(s): 743081822 (2) Allergy to multiple antibiotics Current Visit: Yes Status: Acute Code(s): Z88.1 - ALLERGY STATUS TO OTHER ANTIBIOTIC AGENTS SNOMED Code(s): 515874283 (3) Lung abscess Current Visit: Yes Status: Acute Code(s): J85.2 - ABSCESS OF LUNG WITHOUT PNEUMONIA SNOMED Code(s): 91480513 Plan: 1patient presented to hospital with sepsis in this patient who did have a fever tachycardia hypoxemia elevated white count source is unlikely pneumonia with question of possible abscess/empyema in this patient with recent surgery we will need to cover for resistant gram-positive as well as gram-negative pathogen. 2patient with the penicillin and cephalosporin allergy that would limit the number of antibiotics safe to use. 3-patient is status post bronchoscopy lavage and also have placement of a pigtail catheter by IR , cultures are pending 4patient WBC has normalized , Pt will continue with the vancomycin pharmacy to dose however and Azactam 2 g every 8 hours, while waiting for the cultures to finalize Dictation was produced using [employer] dictation software. please excuse any grammatical, word or spelling errors. Time with Patient: Less than 30
[2023-10-02] MEDS: SENNOSIDES-DOCUSATE SODIUM 1 EACH TAB PO SCH (19:45)
[2023-10-03] MEDS: AZTREONAM 2 GM in SODIUM CHLORIDE 0.9% 100 ML IVPB SCH ×3 (00:03→16:40)
[2023-10-03] MEDS: SODIUM CHLORIDE 0.9% 1,000 ML IV SCH ×4 (00:03→23:58)
[2023-10-03] MEDS: HYDROmorphone 0.5 MG/0.5 ML SYRINGE IVP PRN ×6 (03:09→20:27)
[2023-10-03 04:49] LABS: ALT 22 U/L (4-34); AST 26 U/L (14-36); African American GFR (CKD) >90 (>60 ml/min/1.73 sqM); Albumin 2.1 g/dL (3.5-5.0); Alkaline Phosphatase 190 U/L (38-126); Anion Gap 4 mmol/L; Blood Urea Nitrogen 5 mg/dL (7-17); Calcium 7.8 mg/dL (8.4-10.2); Carbon Dioxide 33 mmol/L (22-30); Chloride 99 mmol/L (98-107); Glucose 91 mg/dL (74-99); Non-African American GFR(CKD) >90 (>60 ml/min/1.73 sqM); Potassium 3.4 mmol/L (3.5-5.1); Sodium 136 mmol/L (137-145); Total Bilirubin 0.2 mg/dL (0.2-1.3)
[2023-10-03 04:57] LABS: Basophils % (A) 0 %; Eosinophils # (A) 0.1 k/uL (0-0.7); Eosinophils % (A) 2 %; HCT 23.6 % (34.0-46.0); HGB 7.4 gm/dL (11.4-16.0); Hypochromasia Marked; Lymphocytes # (A) 1.6 k/uL (1.0-4.8); Lymphocytes % (A) 30 %; MCH 27.8 pg (25.0-35.0); MCHC 31.5 g/dL (31.0-37.0); MCV 88.3 fL (80.0-100.0); Mean Platelet Volume 7.1; Monocytes # (A) 0.3 k/uL (0-1.0); Monocytes % (A) 5 %; Neutrophils # (A) 3.4 k/uL (1.3-7.7); Neutrophils % (A) 61 %; Platelet Count 478 k/uL (150-450); RBC 2.67 m/uL (3.80-5.40); RDW 14.5 % (11.5-15.5); WBC 5.5 k/uL (3.8-10.6)
[2023-10-03] MEDS: PANTOPRAZOLE 40 MG TABLET PO SCH (06:34)
[2023-10-03] MEDS ORDERED: ALTEPLASE 10 MG in SODIUM CHLORIDE 0.9% 50 ML IRRIGATION ONE (07:45)
[2023-10-03] MEDS: IPRATROPIUM-ALBUTEROL 3 ML NEB INHALATION SCH ×4 (08:10→17:49)
--- NOTE | 2023-10-03 08:12 | P.PN ---
Subjective Progress Note Date: 10/03/23 Principal diagnosis: Pneumonia with possible lung abscess, small right pleural effusion, residual loculated small anterior upper lung pneumothorax, leukocytosis, normocytic normochromic anemia. History of non-small cell carcinoma with neuroendocrine differentiation, consistent with large cell neuroendocrine carcinoma status post robotic-assisted right upper lobectomy on 08/19/2023 and subsequent bronchoscopy with placement of right thoracostomy tube, chronic tobacco dependence with recent cessation, COPD, asthma, hyperlipidemia, GERD, diverticulitis status post bowel resection, osteoarthritis The patient was seen and examined sitting up in bed on the medical oncology unit in no acute distress. States she continues to feel a little better everyday. Still has frequent productive cough and some shortness of breath. Has remained afebrile, vitals stable, currently on 2 LPM NC with oxygen saturation in the high 90s. Only able to achieve 500 mL on incentive spirometer this morning. Has been ambulatory in the room. WBC normal at 5.5 this morning. Sputum culture finalized as normal respiratory hubert, pleural fluid sent from pigtail insertion currently pending but negative to date, BAL specimen preliminarily growing many gram negative bacilli, rare gram positive cocci and bacilli. Remains on Aztreonam and Vanco per ID while waiting for finalization of cultures. Pigtail drained 300 mL purulent fluid in the last 24 hours, patient refused lytic instillation yesterday but is willing to have today. CXR reviewed. Objective - Vital Signs Vital signs: Vital Signs Temp 98.8 F 10/03/23 07:48 Pulse 105 H 10/03/23 07:48 Resp 19 10/03/23 07:48 BP 129/80 10/03/23 07:48 Pulse Ox 99 10/03/23 07:48 FiO2 Intake & Output 10/02/23 10/03/23 10/03/23 18:59 06:59 18:59 Intake Total 222 Output Total 475 Balance -253 Intake: Oral 222 Output: Chest Tube Drainage 175 Chest Tube Right Upper 175 Anterior Chest Urine 300 Other: # Voids 1 2 # Bowel Movements 1 - Exam CONSTITUTIONAL: Appears comfortable, cooperative, no acute distress RESPIRATORY: Lungs sounds diminished on the right but better than yesterday. Respirations even, nonlabored. Currently on 2 LPM NC with oxygen saturation 98%. Able to achieve 500 mL on incentive spirometry. Strong productive cough. CARDIOVASCULAR: S1, S2 present. Regular rate and rhythm, sinus rhythm on telemetry. Palpable peripheral pulses bilaterally. No edema present. No calf pain or tenderness noted GASTROINTESTINAL: Abdomen soft, nontender, nondistended. Active bowel sounds present 4 quadrants. Tolerating minimal diet. Positive bowel movement 10/02 GENITOURINARY: Continues to void INTEGUMENTARY: Skin is warm and dry. Thoracic incisions well approximated NEUROLOGIC: Cranial nerves II through XII intact MUSKULOSKELETAL: Able to move all extremities, strength equal bilaterally, gait normal PSYCHIATRIC: Alert and oriented to person place and time, appropriate affect, intact judgment and insight INVASIVE TUBES: Right sided pigtail catheter present to continuous wall suction, 300 mL purulent drainage in the last 24 hours - Labs CBC & Chem 7: 10/03/23 03:59 10/03/23 03:59 Labs: Abnormal Lab Results - Last 24 Hours (Table) 10/02/23 10/02/23 10/03/23 Range/Units 07:37 07:37 03:59 RBC 3.00 L (3.80-5.40) m/uL Hgb 7.9 L (11.4-16.0) gm/dL Hct 26.8 L (34.0-46.0) % MCHC 29.7 L (31.0-37.0) g/dL Plt Count 550 H (150-450) k/uL Sodium 136 L 136 L (137-145) mmol/L Potassium 3.2 L 3.4 L (3.5-5.1) mmol/L Chloride 95 L (98-107) mmol/L Carbon Dioxide 34 H 33 H (22-30) mmol/L BUN 5 L 5 L (7-17) mg/dL Creatinine 0.46 L (0.52-1.04) mg/dL Glucose 103 H (74-99) mg/dL Calcium 8.1 L 7.8 L (8.4-10.2) mg/dL Alkaline Phosphatase 256 H 190 H (38-126) U/L Total Protein 5.7 L 5.0 L (6.3-8.2) g/dL Albumin 2.4 L 2.1 L (3.5-5.0) g/dL 10/03/23 Range/Units 03:59 RBC 2.67 L (3.80-5.40) m/uL Hgb 7.4 L (11.4-16.0) gm/dL Hct 23.6 L (34.0-46.0) % MCHC (31.0-37.0) g/dL Plt Count 478 H (150-450) k/uL Sodium (137-145) mmol/L Potassium (3.5-5.1) mmol/L Chloride (98-107) mmol/L Carbon Dioxide (22-30) mmol/L BUN (7-17) mg/dL Creatinine (0.52-1.04) mg/dL Glucose (74-99) mg/dL Calcium (8.4-10.2) mg/dL Alkaline Phosphatase (38-126) U/L Total Protein (6.3-8.2) g/dL Albumin (3.5-5.0) g/dL Microbiology - Last 24 Hours (Table) 09/30/23 15:30 Gram Stain - Final Sputum Sputum Culture - Final 09/29/23 16:40 Blood Culture - Preliminary Blood 10/01/23 08:40 Acid Fast Bacilli Smear - Preliminary Bronchoalviolar Lavage - Right 10/01/23 13:00 Gram Stain - Preliminary Pleural Fluid Body Fluid Culture - Preliminary 10/01/23 08:40 Gram Stain - Preliminary Bronchoalviolar Lavage - Right - Imaging and Cardiology Chest x-ray: image reviewed Assessment and Plan Assessment: Pneumonia with possible lung abscess, status post bronchoscopy and right sided pigtail catheter placement Small right pleural effusion, residual loculated small anterior upper lung pneumothorax Leukocytosis, secondary to above Normocytic normochromic anemia Non-small cell carcinoma with neuroendocrine differentiation, consistent with large cell neuroendocrine carcinoma status post robotic-assisted right upper lobectomy on 08/19/2023 and subsequent bronchoscopy with placement of right thoracostomy tube Chronic tobacco dependence with recent cessation COPD, FEV1 87%, DLCO 55% Asthma Hyperlipidemia GERD Diverticulitis status post bowel resection Osteoarthritis Plan: Continue to monitor output from pigtail catheter, will instill dose of lytics today Continue IV antibiotics per infectious disease, await culture finalization Will monitor daily labs, CXR Wean oxygen as tolerated, encourage use of incentive spirometry 10 times every hour while awake Increase activity as tolerated, out of bed for all meals Pain control per current medication regimen Reinforced continued smoking cessation Continue Mucinex, patient refusing mucomyst-discontinued Bronchodilator per magnet maker No surgical intervention planned at this time Medical management of other comorbidities per internal medicine, pulmonology, ID More recommendations to follow based on patient's clinical course
[2023-10-03] MEDS: METOPROLOL TARTRATE 25 MG TAB PO SCH ×2 (08:18→20:27)
[2023-10-03] MEDS: guaiFENesin 600 MG TABLET.ER PO SCH ×2 (08:18→20:27)
[2023-10-03] MEDS: VANCOMYCIN 1,250 MG in SODIUM CHLORIDE 0.9% 250 ML IVPB SCH ×2 (08:29→20:26)
--- NOTE | 2023-10-03 09:00 | XR ---
EXAMINATION TYPE: XR chest 1V portable DATE OF EXAM: 10/03/2023 7:32 AM CLINICAL INDICATION:Female, 57 years old with history of pneumonia; [facility] COMPARISON: Chest radiograph one day prior. TECHNIQUE: XR chest 1V portable Frontal view of the chest. FINDINGS: Lungs/Pleura: Redemonstrated opacity within the right lung with pleural pigtail identified. No eviden ce of large pneumothorax. The previously described air-fluid level within the right lung apex is agai n identified, however less conspicuous on the current exam. Right-sided pleural effusion is present a nd stable. The left lung is clear. Pulmonary vascularity: Unremarkable. Heart/mediastinum: Cardiomediastinal silhouette is unremarkable. Musculoskeletal: No acute osseous pathology. IMPRESSION: Overall stable exam demonstrate persistent right apical opacity with air-fluid level as well as stabl e positioning of right pleural pigtail catheter and right pleural effusion.
--- NOTE | 2023-10-03 13:40 | P.PN ---
Subjective Progress Note Date: 10/03/23 I am seeing this patient in consultation today 09/30/2023 for suspected pulmonary abscess. Patient is a 57-year-old white female with past medical history significant for right upper lobe non-small cell lung carcinoma status post robotic-assisted VATS involving a right upper lobectomy on August 19. She did have a complicated postoperative hospital stay with a persistent right sided pneumothorax and opacification of the right midlung area. She has been closely followed up on an outpatient basis. She does follow Dr. Davey in the pulmonary office, and also had a office visit with Dr. Espino from cardiothoracic surgery on 09/17. She states that she has "not really been 100%" since surgery. More recently she has had symptoms of exertional shortness of breath, right-sided back pain, productive cough with yellow/green sputum sometimes pink tinged, and subjective fevers. She has received courses of Levaquin and doxycycline outpatient. A CT of the chest done 2 days ago demonstrated focal severe consolidation of the right upper lobe measuring 7.7 cm with what appears to be a fluid density concerning for pulmonary abscess. There is an adjacent residual loculated small anterior upper lung pneumothorax measuring 4.5 cm. There is a possible secondary pulmonary abscess or cavitary necrosis with air-fluid level anterior right mid lung measuring 9.2 x 8.2 x 7.4 cm. For this reason, she was directed to the emergency room yesterday. Patient was given doses of Levaquin and vancomycin in the emergency room. She does have a penicillin ALLERGY. Bronchoscopy with BAL done on 08/23/2023 did not identify significant bacterial growth. CBC shows a WBC count of 16, hemoglobin 9.6, hematocrit 30.4, platelets 694. BMP on arrival shows sodium 133, potassium 3.2, chloride 83, serum bicarbonate 34, BUN 12, creatinine 0.5, glucose 112. Normal saline infusing at 130 ML's per hour. Lactic acid level I.9. Patient is currently lying in bed, on 2 L/m nasal cannula, in no acute distress. SPO2 97%. She is slightly tachycardic with a heart rate of 116 bpm. She was febrile with a T-max of 100F. Blood cultures pending. Hemodynamically stable. Patient was seen and examined today on 10/01/23, seems to be doing about the same, continues to have cough and shortness of breath. Cough is productive with thick yellow phlegm. Underwent a bronchoscopy today , please refer to the full operative report. Patient was found to have significant area and secretions coming out of the right middle lobe, mucosa in the right middle lobe was noted to be thick TX edematous, and has quite a bit of abnormal appearance, multiple biopsies from the right lobe bronchus were done, and lavage of the right middle lobe/medial segment was also performed. In the meantime the patient remains on antibiotics, and these will likely be adjusted based on the final culture from the BAL. Patient continues to have leukocytosis with WBC count of 17.9 hemoglobin 8.9, basic metabolic profile is normal Reevaluated today on 10/02/23, patient was seen by interventional radiology yesterday, and she underwent placement of a pigtail catheter into her right lung. Significant purulent drainage is noted into the pleural VAC, chest x-ray is showing improvement, clinically the patient is feeling better, remains on antibiotics, cultures are pending however the Gram stain is showing gram- positive cocci and that is from the pleural effusion fluid. BAL Gram stain is showing moderate PMNs and mixed organisms including gram-negative bacilli and gram-positive cocci. Patient is tolerating antibiotics well, and apparently she had one of placed treatment into the lung. Abscess. Patient refusing to have any more. WBC count is down today to 6.2 from 17.9 hemoglobin is 7.9, basic metabolic profile is normal. Renal profile is normal patient remains in the meantime on vancomycin and on aztreonam. The patient is seen today 10/03/2023 in follow-up on the regular medical floor. She is currently sitting up in a chair at the bedside. Awake and alert in no acute distress. Breathing quite a bit better. Maintaining good O2 saturations in the 90s on room air. She's been afebrile. Hemodynamically stable. Chest x- ray shows improvement in the right-sided empyema. Chest tube remains in place to wall suction. There was another 300 ML's of purulent drainage in the past 24 hours. She did receive alteplase/dornase earlier this morning per CT services. Pleural fluid cultures revealing no growth thus far. Bronchial wash cultures revealing no growth thus far. Sputum culture revealed no growth. White count 5.5. Hemoglobin 7.4. Sodium 136. Potassium 3.4. Bicarb 33. BUN 5. Creatinine 0.52. Glucose 91. She remains on aztreonam and vancomycin. Objective - Vital Signs Vital signs: Vital Signs Temp 98.8 F 10/03/23 07:48 Pulse 98 10/03/23 11:33 Resp 19 10/03/23 07:48 BP 129/80 10/03/23 07:48 Pulse Ox 97 10/03/23 08:13 FiO2 Intake & Output 10/02/23 10/03/23 10/03/23 18:59 06:59 18:59 Intake Total 222 180 Output Total 475 Balance -253 180 Intake: Oral 222 180 Output: Chest Tube Drainage 175 Chest Tube Right Upper 175 Anterior Chest Urine 300 Other: # Voids 1 2 # Bowel Movements 1 - Exam GENERAL EXAM: Alert, pleasant 57-year-old female, up in a chair, on 2 L nasal cannula, comfortable in no apparent distress. HEAD: Normocephalic. EYES: Normal reaction of pupils, equal size. NOSE: Clear with pink turbinates. THROAT: No erythema or exudates. NECK: No masses, no JVD. CHEST: No chest wall deformity. Right-sided pigtail catheter in place to wall suction. LUNGS: Equal air entry with crackles in the right lung base. CVS: S1 and S2 normal with no audible murmur, regular rhythm. ABDOMEN: No hepatosplenomegaly, normal bowel sounds, no guarding or rigidity. SPINE: No scoliosis or deformity SKIN: No rashes CENTRAL NERVOUS SYSTEM: No focal deficits, tone is normal in all 4 extremities. EXTREMITIES: There is no peripheral edema. No clubbing, no cyanosis. Peripheral pulses are intact. - Labs CBC & Chem 7: 10/03/23 03:59 10/03/23 03:59 Labs: Abnormal Lab Results - Last 24 Hours (Table) 10/03/23 10/03/23 Range/Units 03:59 03:59 RBC 2.67 L (3.80-5.40) m/uL Hgb 7.4 L (11.4-16.0) gm/dL Hct 23.6 L (34.0-46.0) % Plt Count 478 H (150-450) k/uL Sodium 136 L (137-145) mmol/L Potassium 3.4 L (3.5-5.1) mmol/L Carbon Dioxide 33 H (22-30) mmol/L BUN 5 L (7-17) mg/dL Calcium 7.8 L (8.4-10.2) mg/dL Alkaline Phosphatase 190 H (38-126) U/L Total Protein 5.0 L (6.3-8.2) g/dL Albumin 2.1 L (3.5-5.0) g/dL Microbiology - Last 24 Hours (Table) 09/30/23 15:30 Gram Stain - Final Sputum Sputum Culture - Final 09/29/23 16:40 Blood Culture - Preliminary Blood 10/01/23 08:40 Acid Fast Bacilli Smear - Preliminary Bronchoalviolar Lavage - Right 10/01/23 13:00 Gram Stain - Preliminary Pleural Fluid Body Fluid Culture - Preliminary Assessment and Plan Assessment: Non-small cell lung cancer status post right upper lobectomy, done on 08/19/2023. Two regional hilar lymph nodes were positive for metastasis. No other lymph nodes involved. Post-operative hospital stay was complicated by persistent residual right apical pneumothorax. During this hospitalization, she did have a follow-up bronchoscopy with BAL done on 08/31/2023, which did not isolate any bacterial organisims. Likely secondary lung abscess, A CT of the chest done 2 days ago demonstrated focal severe consolidation of the right upper lobe measuring 7.7 cm with what appears to be a fluid density concerning for pulmonary abscess. There is an adjacent residual loculated small anterior upper lung pneumothorax measuring 4.5 cm. There is a possible second pulmonary abscess or cavitary necrosis with air- fluid level anterior right mid lung measuring 9.2 x 8.2 x 7.4 cm. status post bronchoscopy and status post pigtail catheter placement into the lung abscess with definite improvement clinically and improvement noted in chest x-ray. Leukocytosis Residual right apical loculated pneumothorax, as described above Hypokalemia, being replaced Normocytic normochromic anemia, without any obvious blood loss Chronic obstructive pulmonary disease, with a FEV1 53% of predicted, stable. Former tobacco dependence Plan: The patient was seen and evaluated Chest x-ray, labs and medications reviewed Chest x-ray showing improvement Pigtail catheter remains in place to the right chest Lytics instilled per CT services today Remains on aztreonam and vancomycin We will continue to follow I have personally seen and examined the patient, performed the documentation and the assessment and plan as written. Number of minutes spent on the visit: 10.
--- NOTE | 2023-10-03 13:44 | P.PN ---
Subjective Progress Note Date: 10/03/23 patient is a 57-year-old lady with past medical history significant for right upper lobe non-small cell lung carcinoma status post robotic-assisted VATS involving a right upper lobectomy on 08/19/23 who presented to the ER because of abnormal computed tomography scan findings and persistent shortness of breath. Patient had recent VATS of right upper lobe surgery done in August, post operative course was complicated by persistent right-sided pneumothorax and opacification of the right mid lung area. After the surgery patient stated that she was not feeling well. Patient has been having worsening shortness of breath on exertion. Patient was also having productive cough which with green colored phlegm. Patient was also having fevers at home. Patient was being followed up closely by pulmonology as listed per CT surgery in outpatient settings. Because of these symptoms, patient had outpatient computed tomography scan done which showed ocal severe consolidation of the right upper lobe measuring 7.7 cm with what appears to be a fluid density concerning for pulmonary abscess. There is an adjacent residual loculated small anterior upper lung pneumothorax measuring 4.5 cm. There is a possible secondary pulmonary abscess or cavitary necrosis with air-fluid level anterior right mid lung measuring 9.2 x 8.2 x 7.4 cm. because of these findings, patient was referred to the ER Initial lab work done in the ER showed WBC 16, hemoglobin 9.6, platelet count 694, sodium 1:30 potassium 3.2, BUN 12, creatinine 0.5, glucose 112 Chest x-ray done in the ER showed extensive pleural/parenchymal S2 with right possible pulmonary abscess and areas of severe pneumonia, loculated right apical pneumothorax may be filling with fluid now Patient admitted to medicine service 10/01. Patient seen and examined. Continues to have productive cough. Currently undergoing bronchoscopy today. IR has been consulted for pigtail catheter placement for lytic instillation and drainage of right upper foot pocket. Still having productive cough. Gets short of breath on exertion 10/02. Patient seen and examined. Patient had pigtail catheter in place on right side. States breathing is improving. Continues to have productive cough. Tachycardia is improving. Currently on 2 L of oxygen 10/03. Patient seen and examined. Lab work done showed WBC 5.5, hemoglobin 7.4, sodium 136, potassium 3.4. States breathing is comfortable. Continues to have productive cough. REVIEW OF SYSTEMS: CONSTITUTIONAL: No fever, no malaise,. CARDIOVASCULAR: no palpitations, no syncope. PULMONARY: As mentioned above GASTROINTESTINAL: No diarrhea, no nausea, no vomiting, no abdominal pain. NEUROLOGICAL: No headaches, no weakness, PHYSICAL EXAMINATION: GENERAL: The patient is alert and oriented x3, not in any acute distress. Well developed, well nourished. HEENT: Pupils are round and equally reacting to light. EOMI. No scleral icterus. No conjunctival pallor. Normocephalic, atraumatic. No pharyngeal erythema. No t hyromegaly. CARDIOVASCULAR: S1 and S2 present. No murmurs, rubs, or gallops. PULMONARY: Coarse breath sounds bilaterally, no crackles, pigtail catheter in place on right side ABDOMEN: Soft, nontender, nondistended, normoactive bowel sounds. No palpable organomegaly. MUSCULOSKELETAL: No joint swelling or deformity. EXTREMITIES: No cyanosis, clubbing, or pedal edema. NEUROLOGICAL: Gross neurological examination did not reveal any focal deficits. SKIN: No rashes. Assessment and plan Bacterial pneumonia Lung abscess Hypokalemia Non-small cell lung cancer status post right upper lobectomy, done on 08/19/2023. Leukocytosis Residual right apical loculated pneumothorax Normocytic normochromic anemia Chronic obstructive pulmonary disease Former tobacco dependence Monitor vital signs Monitor CBC Monitor CMP Follow-up on blood cultures Follow-up on sputum culture Potassium replacement has been ordered Aggressive bronchopulmonary hygiene Status post pigtail catheter placement with lytic instillation Continue IV aztreonam and vancomycin Continue breathing treatments CT surgery following ID following Labs and medication were reviewed.. Continue same treatment. Continue with symptomatic treatment. Resume home medication. Monitor labs and vitals. DVT and GI prophylaxis. Further recommendations as per clinical course of the patient Dictation was produced using [email or web address] dictation software. please excuse any grammatical, word or spelling errors. Objective - Vital Signs Vital signs: Vital Signs Temp 98.8 F 10/03/23 07:48 Pulse 104 H 10/03/23 08:22 Resp 19 10/03/23 07:48 BP 129/80 10/03/23 07:48 Pulse Ox 97 10/03/23 08:13 FiO2 Intake & Output 10/02/23 10/03/23 10/03/23 18:59 06:59 18:59 Intake Total 222 Output Total 475 Balance -253 Intake: Oral 222 Output: Chest Tube Drainage 175 Chest Tube Right Upper 175 Anterior Chest Urine 300 Other: # Voids 1 2 # Bowel Movements 1 - Labs CBC & Chem 7: 10/03/23 03:59 10/03/23 03:59 Labs: Abnormal Lab Results - Last 24 Hours (Table) 10/02/23 10/02/23 10/03/23 Range/Units 07:37 07:37 03:59 RBC 3.00 L (3.80-5.40) m/uL Hgb 7.9 L (11.4-16.0) gm/dL Hct 26.8 L (34.0-46.0) % MCHC 29.7 L (31.0-37.0) g/dL Plt Count 550 H (150-450) k/uL Sodium 136 L 136 L (137-145) mmol/L Potassium 3.2 L 3.4 L (3.5-5.1) mmol/L Chloride 95 L (98-107) mmol/L Carbon Dioxide 34 H 33 H (22-30) mmol/L BUN 5 L 5 L (7-17) mg/dL Creatinine 0.46 L (0.52-1.04) mg/dL Glucose 103 H (74-99) mg/dL Calcium 8.1 L 7.8 L (8.4-10.2) mg/dL Alkaline Phosphatase 256 H 190 H (38-126) U/L Total Protein 5.7 L 5.0 L (6.3-8.2) g/dL Albumin 2.4 L 2.1 L (3.5-5.0) g/dL 10/03/23 Range/Units 03:59 RBC 2.67 L (3.80-5.40) m/uL Hgb 7.4 L (11.4-16.0) gm/dL Hct 23.6 L (34.0-46.0) % MCHC (31.0-37.0) g/dL Plt Count 478 H (150-450) k/uL Sodium (137-145) mmol/L Potassium (3.5-5.1) mmol/L Chloride (98-107) mmol/L Carbon Dioxide (22-30) mmol/L BUN (7-17) mg/dL Creatinine (0.52-1.04) mg/dL Glucose (74-99) mg/dL Calcium (8.4-10.2) mg/dL Alkaline Phosphatase (38-126) U/L Total Protein (6.3-8.2) g/dL Albumin (3.5-5.0) g/dL Microbiology - Last 24 Hours (Table) 09/30/23 15:30 Gram Stain - Final Sputum Sputum Culture - Final 09/29/23 16:40 Blood Culture - Preliminary Blood 10/01/23 08:40 Acid Fast Bacilli Smear - Preliminary Bronchoalviolar Lavage - Right 10/01/23 13:00 Gram Stain - Preliminary Pleural Fluid Body Fluid Culture - Preliminary 10/01/23 08:40 Gram Stain - Preliminary Bronchoalviolar Lavage - Right
[2023-10-03] MEDS: SENNOSIDES-DOCUSATE SODIUM 1 EACH TAB PO SCH (20:27)
[2023-10-04] MEDS: AZTREONAM 2 GM in SODIUM CHLORIDE 0.9% 100 ML IVPB SCH ×4 (00:14→23:16)
[2023-10-04] MEDS: HYDROmorphone 0.5 MG/0.5 ML SYRINGE IVP PRN ×5 (00:21→16:18)
[2023-10-04] MEDS: PANTOPRAZOLE 40 MG TABLET PO SCH (06:02)
--- NOTE | 2023-10-04 07:34 | XR ---
EXAMINATION TYPE: XR chest 1V portable DATE OF EXAM: 10/04/2023 7:27 AM CLINICAL INDICATION:Female, 57 years old with history of pneumonia; [facility] COMPARISON: Chest radiograph from one day prior. TECHNIQUE: XR chest 1V portable Frontal view of the chest. FINDINGS: Lungs/Pleura: There is haziness the right lung with small right apical pneumothorax. There is a small pleural effusion on the right. There is here is no evidence of left pleural effusion, focal consolid ation, or pneumothorax. Pulmonary vascularity: Unremarkable. Heart/mediastinum: Cardiomediastinal silhouette is unremarkable. Musculoskeletal: No acute osseous pathology. Other findings: None IMPRESSION: Small right apical pneumothorax which has increased from prior. There remains haziness to the right l antoinette which is unchanged.
[2023-10-04 07:35] LABS: African American GFR (CKD) >90 (>60 ml/min/1.73 sqM); Anion Gap 5 mmol/L; Blood Urea Nitrogen 4 mg/dL (7-17); Calcium 7.7 mg/dL (8.4-10.2); Carbon Dioxide 35 mmol/L (22-30); Chloride 97 mmol/L (98-107); Glucose 95 mg/dL (74-99); Non-African American GFR(CKD) >90 (>60 ml/min/1.73 sqM); Potassium 3.1 mmol/L (3.5-5.1); Sodium 137 mmol/L (137-145)
[2023-10-04] MEDS: IPRATROPIUM-ALBUTEROL 3 ML NEB INHALATION SCH ×4 (08:34→18:16)
[2023-10-04] MEDS ORDERED: POTASSIUM BICARBONATE/CIT AC 20 MEQ TABLET.EFF PO ONE (09:00)
[2023-10-04] MEDS: SODIUM CHLORIDE 0.9% 1,000 ML IV SCH ×3 (09:10→21:15)
[2023-10-04] MEDS: METOPROLOL TARTRATE 25 MG TAB PO SCH ×2 (09:11→20:33)
[2023-10-04] MEDS: guaiFENesin 600 MG TABLET.ER PO SCH ×2 (09:11→20:33)
[2023-10-04] MEDS: VANCOMYCIN 1,250 MG in SODIUM CHLORIDE 0.9% 250 ML IVPB SCH ×2 (09:12→20:34)
--- NOTE | 2023-10-04 09:43 | P.PN ---
Subjective Progress Note Date: 10/04/23 Principal diagnosis: Pneumonia with possible lung abscess, small right pleural effusion, residual loculated small anterior upper lung pneumothorax, leukocytosis, normocytic normochromic anemia. History of non-small cell carcinoma with neuroendocrine differentiation, consistent with large cell neuroendocrine carcinoma status post robotic-assisted right upper lobectomy on 08/19/2023 and subsequent bronchoscopy with placement of right thoracostomy tube, chronic tobacco dependence with recent cessation, COPD, asthma, hyperlipidemia, GERD, diverticulitis status post bowel resection, osteoarthritis The patient was seen and examined sitting up in bed on the medical oncology unit in no acute distress. States she feels about the same today as she did yesterday. Still has frequent productive cough and some shortness of breath. Has remained afebrile, vitals stable, currently on 2 LPM NC with oxygen saturation in the high 90s. Only able to achieve 750 mL on incentive spirometer this morning. Has been ambulatory in the room. WBC normalized. Sputum culture finalized as normal respiratory hubert, pleural fluid sent from pigtail insertion currently pending but preliminarily growing gram positive bacilli, BAL specimen preliminarily growing many gram negative bacilli, rare gram positive cocci and bacilli. Remains on Aztreonam and Vanco per ID while waiting for finalization of cultures. Pigtail drained 170 mL purulent fluid in the last 24 hours, lytics were instilled yesterday for second dose. CXR reviewed. Objective - Vital Signs Vital signs: Vital Signs Temp 97.8 F 10/04/23 08:00 Pulse 111 H 10/04/23 08:00 Resp 18 10/04/23 08:00 BP 132/78 10/04/23 08:00 Pulse Ox 97 10/04/23 08:00 FiO2 Intake & Output 10/03/23 10/04/23 10/04/23 18:59 06:59 18:59 Intake Total 180 118 Balance 180 118 Intake: Oral 180 118 Other: # Voids 2 # Bowel Movements 1 - Exam CONSTITUTIONAL: Appears comfortable, cooperative, no acute distress RESPIRATORY: Lungs sounds clear. Respirations even, nonlabored. Currently on 2 LPM NC with oxygen saturation 97%. Able to achieve 750 mL on incentive spirometry. Strong productive cough. CARDIOVASCULAR: S1, S2 present. Regular rate and rhythm, sinus rhythm on telemetry. Palpable peripheral pulses bilaterally. No edema present. No calf pain or tenderness noted GASTROINTESTINAL: Abdomen soft, nontender, nondistended. Active bowel sounds present 4 quadrants. Tolerating minimal diet. Positive bowel movement 10/04 GENITOURINARY: Continues to void INTEGUMENTARY: Skin is warm and dry. Thoracic incisions well healed NEUROLOGIC: Cranial nerves II through XII intact MUSKULOSKELETAL: Able to move all extremities, strength equal bilaterally, gait normal PSYCHIATRIC: Alert and oriented to person place and time, appropriate affect, intact judgment and insight INVASIVE TUBES: Right sided pigtail catheter present to continuous wall suction, 170 mL purulent drainage in the last 24 hours - Allied health notes Allied health notes reviewed: nursing - Labs CBC & Chem 7: 10/03/23 03:59 10/04/23 06:07 Labs: Abnormal Lab Results - Last 24 Hours (Table) 10/04/23 Range/Units 06:07 Potassium 3.1 L (3.5-5.1) mmol/L Chloride 97 L (98-107) mmol/L Carbon Dioxide 35 H (22-30) mmol/L BUN 4 L (7-17) mg/dL Creatinine 0.43 L (0.52-1.04) mg/dL Calcium 7.7 L (8.4-10.2) mg/dL Microbiology - Last 24 Hours (Table) 10/01/23 08:40 Gram Stain - Final Bronchoalviolar Lavage - Right Bronchial Washings Culture - Final 10/01/23 13:00 Gram Stain - Preliminary Pleural Fluid Body Fluid Culture - Preliminary Gram Positive Bacilli 09/30/23 15:30 Gram Stain - Final Sputum Sputum Culture - Final 09/29/23 16:40 Blood Culture - Preliminary Blood - Imaging and Cardiology Chest x-ray: report reviewed, image reviewed Assessment and Plan Assessment: Pneumonia with possible lung abscess, status post bronchoscopy and right sided pigtail catheter placement Small right pleural effusion, residual loculated small anterior upper lung pneumothorax Leukocytosis, secondary to above Normocytic normochromic anemia Non-small cell carcinoma with neuroendocrine differentiation, consistent with large cell neuroendocrine carcinoma status post robotic-assisted right upper lobectomy on 08/19/2023 and subsequent bronchoscopy with placement of right thoracostomy tube Chronic tobacco dependence with recent cessation COPD, FEV1 87%, DLCO 55% Asthma Hyperlipidemia GERD Diverticulitis status post bowel resection Osteoarthritis Plan: Continue to monitor output from pigtail catheter Continue IV antibiotics per infectious disease, await culture finalization Will monitor daily labs, CXR Wean oxygen as tolerated, encourage use of incentive spirometry 10 times every hour while awake Increase activity as tolerated, out of bed for all meals Pain control per current medication regimen Reinforced continued smoking cessation Continue Mucinex, patient refusing mucomyst-discontinued Bronchodilator per entry level sales associate No surgical intervention planned at this time Medical management of other comorbidities per internal medicine, pulmonology, ID More recommendations to follow based on patient's clinical course
[2023-10-04 10:58] LABS: HCT 26.7 % (37.2-46.3); HGB 8.1 g/dL (12.0-15.0); MCH 26.9 pg (27.0-32.0); MCHC 30.3 g/dL (32.0-37.0); MCV 88.7 FL (80.0-97.0); Mean Platelet Volume 8.2 FL (9.5-12.2); NRBC Per 100 WBC 0 X 10*3/uL (0.00-0.01); Platelet Count 536 X 10*3/uL (140-440); RBC 3.01 X 10*6/uL (4.10-5.20); RDW 14.8 % (11.5-14.5)
--- NOTE | 2023-10-04 12:10 | P.PN ---
Subjective Progress Note Date: 10/04/23 I am seeing this patient in consultation today 09/30/2023 for suspected pulmonary abscess. Patient is a 57-year-old white female with past medical history significant for right upper lobe non-small cell lung carcinoma status post robotic-assisted VATS involving a right upper lobectomy on August 19. She did have a complicated postoperative hospital stay with a persistent right sided pneumothorax and opacification of the right midlung area. She has been closely followed up on an outpatient basis. She does follow Dr. Davey in the pulmonary office, and also had a office visit with Dr. Espino from cardiothoracic surgery on 09/17. She states that she has "not really been 100%" since surgery. More recently she has had symptoms of exertional shortness of breath, right-sided back pain, productive cough with yellow/green sputum sometimes pink tinged, and subjective fevers. She has received courses of Levaquin and doxycycline outpatient. A CT of the chest done 2 days ago demonstrated focal severe consolidation of the right upper lobe measuring 7.7 cm with what appears to be a fluid density concerning for pulmonary abscess. There is an adjacent residual loculated small anterior upper lung pneumothorax measuring 4.5 cm. There is a possible secondary pulmonary abscess or cavitary necrosis with air-fluid level anterior right mid lung measuring 9.2 x 8.2 x 7.4 cm. For this reason, she was directed to the emergency room yesterday. Patient was given doses of Levaquin and vancomycin in the emergency room. She does have a penicillin ALLERGY. Bronchoscopy with BAL done on 08/23/2023 did not identify significant bacterial growth. CBC shows a WBC count of 16, hemoglobin 9.6, hematocrit 30.4, platelets 694. BMP on arrival shows sodium 133, potassium 3.2, chloride 83, serum bicarbonate 34, BUN 12, creatinine 0.5, glucose 112. Normal saline infusing at 130 ML's per hour. Lactic acid level I.9. Patient is currently lying in bed, on 2 L/m nasal cannula, in no acute distress. SPO2 97%. She is slightly tachycardic with a heart rate of 116 bpm. She was febrile with a T-max of 100F. Blood cultures pending. Hemodynamically stable. Patient was seen and examined today on 10/01/23, seems to be doing about the same, continues to have cough and shortness of breath. Cough is productive with thick yellow phlegm. Underwent a bronchoscopy today , please refer to the full operative report. Patient was found to have significant area and secretions coming out of the right middle lobe, mucosa in the right middle lobe was noted to be thick CA edematous, and has quite a bit of abnormal appearance, multiple biopsies from the right lobe bronchus were done, and lavage of the right middle lobe/medial segment was also performed. In the meantime the patient remains on antibiotics, and these will likely be adjusted based on the final culture from the BAL. Patient continues to have leukocytosis with WBC count of 17.9 hemoglobin 8.9, basic metabolic profile is normal Reevaluated today on 10/02/23, patient was seen by interventional radiology yesterday, and she underwent placement of a pigtail catheter into her right lung. Significant purulent drainage is noted into the pleural VAC, chest x-ray is showing improvement, clinically the patient is feeling better, remains on antibiotics, cultures are pending however the Gram stain is showing gram- positive cocci and that is from the pleural effusion fluid. BAL Gram stain is showing moderate PMNs and mixed organisms including gram-negative bacilli and gram-positive cocci. Patient is tolerating antibiotics well, and apparently she had one of placed treatment into the lung. Abscess. Patient refusing to have any more. WBC count is down today to 6.2 from 17.9 hemoglobin is 7.9, basic metabolic profile is normal. Renal profile is normal patient remains in the meantime on vancomycin and on aztreonam. The patient is seen today 10/03/2023 in follow-up on the regular medical floor. She is currently sitting up in a chair at the bedside. Awake and alert in no acute distress. Breathing quite a bit better. Maintaining good O2 saturations in the 90s on room air. She's been afebrile. Hemodynamically stable. Chest x- ray shows improvement in the right-sided empyema. Chest tube remains in place to wall suction. There was another 300 ML's of purulent drainage in the past 24 hours. She did receive alteplase/dornase earlier this morning per CT services. Pleural fluid cultures revealing no growth thus far. Bronchial wash cultures revealing no growth thus far. Sputum culture revealed no growth. White count 5.5. Hemoglobin 7.4. Sodium 136. Potassium 3.4. Bicarb 33. BUN 5. Creatinine 0.52. Glucose 91. She remains on aztreonam and vancomycin. The patient is seen today 10/04/2023 in follow-up on the regular medical floor. She is awake and alert in no acute distress. Sitting up in bed. Maintaining good O2 saturations in the 90s on 4 L/m per nasal cannula. She did undergo bronchoscopy with BAL and biopsies on 10/01/2023. Cytology pending. Pleural fluid cultures are showing gram-positive bacilli. White count 9.2. Hemoglobin 8.1. Platelets 536. Sodium 137. Potassium 3.1. Bicarb 35. BUN 4. Creatinine 0.43. She is continued on aztreonam and vancomycin. Remains on bronchodilators. She does have a productive cough of dark brown colored sputum. Another sputum culture will be sent. Chest x-ray continues to show a small right apical pneumothorax which is increased from prior. There is haziness to the right lung which is unchanged. Pulling about 750 MLS on her incentive spirometer. Right-sided pigtail catheter remains in place to continuous wall suction with approximately 170 ML's of purulent drainage in the past 24 hours. Objective - Vital Signs Vital signs: Vital Signs Temp 97.8 F 10/04/23 08:00 Pulse 111 H 10/04/23 08:00 Resp 18 10/04/23 08:00 BP 132/78 10/04/23 08:00 Pulse Ox 97 10/04/23 08:00 FiO2 Intake & Output 10/03/23 10/04/23 10/04/23 18:59 06:59 18:59 Intake Total 180 118 Balance 180 118 Intake: Oral 180 118 Other: # Voids 2 # Bowel Movements 1 - Exam GENERAL EXAM: Alert, pleasant pale 57-year-old female, resting in bed, on 2 L nasal cannula, comfortable in no apparent distress. HEAD: Normocephalic. EYES: Normal reaction of pupils, equal size. NOSE: Clear with pink turbinates. THROAT: No erythema or exudates. NECK: No masses, no JVD. CHEST: No chest wall deformity. Right-sided pigtail catheter in place to wall suction. LUNGS: Equal air entry with crackles in the right lung base. CVS: S1 and S2 normal with no audible murmur, regular rhythm. ABDOMEN: No hepatosplenomegaly, normal bowel sounds, no guarding or rigidity. SPINE: No scoliosis or deformity SKIN: No rashes CENTRAL NERVOUS SYSTEM: No focal deficits, tone is normal in all 4 extremities. EXTREMITIES: There is no peripheral edema. No clubbing, no cyanosis. Peripheral pulses are intact. - Labs CBC & Chem 7: 10/04/23 06:07 10/04/23 06:07 Labs: Abnormal Lab Results - Last 24 Hours (Table) 10/04/23 10/04/23 Range/Units 06:07 06:07 RBC 3.01 L (4.10-5.20) X 10*6/uL Hgb 8.1 L (12.0-15.0) g/dL Hct 26.7 L (37.2-46.3) % MCH 26.9 L (27.0-32.0) pg MCHC 30.3 L (32.0-37.0) g/dL RDW 14.8 H (11.5-14.5) % Plt Count 536 H (140-440) X 10*3/uL MPV 8.2 L (9.5-12.2) FL Potassium 3.1 L (3.5-5.1) mmol/L Chloride 97 L (98-107) mmol/L Carbon Dioxide 35 H (22-30) mmol/L BUN 4 L (7-17) mg/dL Creatinine 0.43 L (0.52-1.04) mg/dL Calcium 7.7 L (8.4-10.2) mg/dL Microbiology - Last 24 Hours (Table) 10/01/23 08:40 Gram Stain - Final Bronchoalviolar Lavage - Right Bronchial Washings Culture - Final 10/01/23 13:00 Gram Stain - Preliminary Pleural Fluid Body Fluid Culture - Preliminary Gram Positive Bacilli 09/30/23 15:30 Gram Stain - Final Sputum Sputum Culture - Final Assessment and Plan Assessment: Non-small cell lung cancer status post right upper lobectomy, done on 08/19/2023. Two regional hilar lymph nodes were positive for metastasis. No other lymph nodes involved. Post-operative hospital stay was complicated by persistent residual right apical pneumothorax. During this hospitalization, she did have a follow-up bronchoscopy with BAL done on 08/31/2023, which did not isolate any bacterial organisims. Right pleural fluid culture is showing gram- negative bacilli Likely secondary lung abscess, A CT of the chest done 2 days ago demonstrated fo jules severe consolidation of the right upper lobe measuring 7.7 cm with what appears to be a fluid density concerning for pulmonary abscess. There is an adjacent residual loculated small anterior upper lung pneumothorax measuring 4.5 cm. There is a possible second pulmonary abscess or cavitary necrosis with air- fluid level anterior right mid lung measuring 9.2 x 8.2 x 7.4 cm. status post bronchoscopy and status post pigtail catheter placement into the lung abscess. Pleural fluid culture positive for gram-negative bacilli. Remains on vancomycin and aztreonam Leukocytosis, improved Residual right apical loculated pneumothorax, as described above Hypokalemia, being replaced Normocytic normochromic anemia, without any obvious blood loss Chronic obstructive pulmonary disease, with a FEV1 53% of predicted, stable. Former tobacco dependence Plan: The patient was seen and evaluated Chest x-ray, labs and medications reviewed Pigtail catheter remains in place to the right chest Lytics instilled per CT services yesterday Pleural fluid culture showing gram-positive bacilli Remains on aztreonam and vancomycin We'll repeat a sputum culture We will continue to follow This patient was seen independently by the nurse practitioner I have personally seen and examined the patient, performed the documentation and the assessment and plan as written. Number of minutes spent on the visit: 24.
--- NOTE | 2023-10-04 12:21 | P.PN ---
Subjective Progress Note Date: 10/04/23 patient is a 57-year-old lady with past medical history significant for right upper lobe non-small cell lung carcinoma status post robotic-assisted VATS involving a right upper lobectomy on 08/19/23 who presented to the ER because of abnormal computed tomography scan findings and persistent shortness of breath. Patient had recent VATS of right upper lobe surgery done in August, post operative course was complicated by persistent right-sided pneumothorax and opacification of the right mid lung area. After the surgery patient stated that she was not feeling well. Patient has been having worsening shortness of breath on exertion. Patient was also having productive cough which with green colored phlegm. Patient was also having fevers at home. Patient was being followed up closely by pulmonology as listed per CT surgery in outpatient settings. Because of these symptoms, patient had outpatient computed tomography scan done which showed ocal severe consolidation of the right upper lobe measuring 7.7 cm with what appears to be a fluid density concerning for pulmonary abscess. There is an adjacent residual loculated small anterior upper lung pneumothorax measuring 4.5 cm. There is a possible secondary pulmonary abscess or cavitary necrosis with air-fluid level anterior right mid lung measuring 9.2 x 8.2 x 7.4 cm. because of these findings, patient was referred to the ER Initial lab work done in the ER showed WBC 16, hemoglobin 9.6, platelet count 694, sodium 1:30 potassium 3.2, BUN 12, creatinine 0.5, glucose 112 Chest x-ray done in the ER showed extensive pleural/parenchymal S2 with right possible pulmonary abscess and areas of severe pneumonia, loculated right apical pneumothorax may be filling with fluid now Patient admitted to medicine service 10/01. Patient seen and examined. Continues to have productive cough. Currently undergoing bronchoscopy today. IR has been consulted for pigtail catheter placement for lytic instillation and drainage of right upper foot pocket. Still having productive cough. Gets short of breath on exertion 10/02. Patient seen and examined. Patient had pigtail catheter in place on right side. States breathing is improving. Continues to have productive cough. Tachycardia is improving. Currently on 2 L of oxygen 10/03. Patient seen and examined. Lab work done showed WBC 5.5, hemoglobin 7.4, sodium 136, potassium 3.4. States breathing is comfortable. Continues to have productive cough. 10/04. Patient seen and examined. Chest x-ray done on 10/04 showed small right apical pneumothorax, haziness to right lung. Sodium 137, potassium 3.1, BUN 4, creatinine 0.43, potassium replacement ordered. Still having productive cough. Denies any shortness of breath at rest REVIEW OF SYSTEMS: CONSTITUTIONAL: No fever, no malaise,. CARDIOVASCULAR: no palpitations, no syncope. PULMONARY: As mentioned above GASTROINTESTINAL: No diarrhea, no nausea, no vomiting, no abdominal pain. NEUROLOGICAL: No headaches, no weakness, PHYSICAL EXAMINATION: GENERAL: The patient is alert and oriented x3, not in any acute distress. Well developed, well nourished. HEENT: Pupils are round and equally reacting to light. EOMI. No scleral icterus. No conjunctival pallor. Normocephalic, atraumatic. No pharyngeal erythema. No thyromegaly. CARDIOVASCULAR: S1 and S2 present. No murmurs, rubs, or gallops. PULMONARY: Coarse breath sounds bilaterally, no crackles, pigtail catheter in place on right side ABDOMEN: Soft, nontender, nondistended, normoactive bowel sounds. No palpable organomegaly. MUSCULOSKELETAL: No joint swelling or deformity. EXTREMITIES: No cyanosis, clubbing, or pedal edema. NEUROLOGICAL: Gross neurological examination did not reveal any focal deficits. SKIN: No rashes. Assessment and plan Bacterial pneumonia Lung abscess Hypokalemia Non-small cell lung cancer status post right upper lobectomy, done on 08/19/2023. Leukocytosis Residual right apical loculated pneumothorax Normocytic normochromic anemia Chronic obstructive pulmonary disease Former tobacco dependence Monitor vital signs Monitor CBC Monitor CMP Follow-up on blood cultures Follow-up on sputum culture Potassium this morning is 3.1, replacement ordered Aggressive bronchopulmonary hygiene Status post pigtail catheter placement with lytic instillation Chest x-ray from 10/04 showed small right apical pneumothorax, haziness to right lung Repeat sputum culture ordered on 10/04 Continue IV aztreonam and vancomycin Continue breathing treatments CT surgery following Pulmonary following ID following Labs and medication were reviewed.. Continue same treatment. Continue with symptomatic treatment. Resume home medication. Monitor labs and vitals. DVT and GI prophylaxis. Further recommendations as per clinical course of the patient Dictation was produced using [employer] software. please excuse any grammatical, word or spelling errors. Objective - Vital Signs Vital signs: Vital Signs Temp 97.8 F 10/04/23 08:00 Pulse 111 H 10/04/23 08:00 Resp 18 10/04/23 08:00 BP 132/78 10/04/23 08:00 Pulse Ox 97 10/04/23 08:00 FiO2 Intake & Output 10/03/23 10/04/23 10/04/23 18:59 06:59 18:59 Intake Total 180 Balance 180 Intake: Oral 180 Other: # Voids 2 - Labs CBC & Chem 7: 10/04/23 06:07 10/04/23 06:07 Labs: Abnormal Lab Results - Last 24 Hours (Table) 10/04/23 Range/Units 06:07 Potassium 3.1 L (3.5-5.1) mmol/L Chloride 97 L (98-107) mmol/L Carbon Dioxide 35 H (22-30) mmol/L BUN 4 L (7-17) mg/dL Creatinine 0.43 L (0.52-1.04) mg/dL Calcium 7.7 L (8.4-10.2) mg/dL Microbiology - Last 24 Hours (Table) 10/01/23 08:40 Gram Stain - Final Bronchoalviolar Lavage - Right Bronchial Washings Culture - Final 10/01/23 13:00 Gram Stain - Preliminary Pleural Fluid Body Fluid Culture - Preliminary Gram Positive Bacilli 09/30/23 15:30 Gram Stain - Final Sputum Sputum Culture - Final 09/29/23 16:40 Blood Culture - Preliminary Blood
--- NOTE | 2023-10-04 18:52 | P.PN ---
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 the patient is status post robotic assisted right upper lobectomy on 08/19/2023, now presented to hospital with persistent cough shortness of breath did have a low-grade fever abnormal CT suspicious for possible pneumonia/lung abscess, the patient is status post bronchoscopy by pulmonary and patient also have a pigtail catheter placed in by IR On today's evaluation that is 10/03/2023, the patient denies any fever or any chills, the patient is breathing comfortably on 2 L nasal cannula supplemental oxygen, patient right-sided chest pain has slightly decreased intensity and denies shortness of breath and no significant cough but bringing up some sputum, patient denies Abdominal pain, no nausea/vomiting and denies having any diarrhea Patient white count is 5.5, creatinine 0.52 Objective - Vital Signs Vital signs: Vital Signs Temp 98.8 F 10/03/23 07:48 Pulse 105 H 10/03/23 07:48 Resp 19 10/03/23 07:48 BP 129/80 10/03/23 07:48 Pulse Ox 99 10/03/23 07:48 FiO2 Intake & Output 10/02/23 10/03/23 10/03/23 18:59 06:59 18:59 Intake Total 222 Output Total 475 Balance -253 Intake: Oral 222 Output: Chest Tube Drainage 175 Chest Tube Right Upper 175 Anterior Chest Urine 300 Other: # Voids 1 2 # Bowel Movements 1 - Exam GENERAL DESCRIPTION: A middle-age female up in bed in no distress RESPIRATORY SYSTEM: Unlabored breathing , decreased breath sounds at the base HEART: S1 S2 regular rate and rhythm , ABDOMEN: Soft , no tenderness EXTREMITIES: No edema feet - Labs CBC & Chem 7: 10/04/23 06:07 10/04/23 06:07 Labs: Abnormal Lab Results - Last 24 Hours (Table) 10/02/23 10/02/23 10/03/23 Range/Units 07:37 07:37 03:59 RBC 3.00 L (3.80-5.40) m/uL Hgb 7.9 L (11.4-16.0) gm/dL Hct 26.8 L (34.0-46.0) % MCHC 29.7 L (31.0-37.0) g/dL Plt Count 550 H (150-450) k/uL Sodium 136 L 136 L (137-145) mmol/L Potassium 3.2 L 3.4 L (3.5-5.1) mmol/L Chloride 95 L (98-107) mmol/L Carbon Dioxide 34 H 33 H (22-30) mmol/L BUN 5 L 5 L (7-17) mg/dL Creatinine 0.46 L (0.52-1.04) mg/dL Glucose 103 H (74-99) mg/dL Calcium 8.1 L 7.8 L (8.4-10.2) mg/dL Alkaline Phosphatase 256 H 190 H (38-126) U/L Total Protein 5.7 L 5.0 L (6.3-8.2) g/dL Albumin 2.4 L 2.1 L (3.5-5.0) g/dL 10/03/23 Range/Units 03:59 RBC 2.67 L (3.80-5.40) m/uL Hgb 7.4 L (11.4-16.0) gm/dL Hct 23.6 L (34.0-46.0) % MCHC (31.0-37.0) g/dL Plt Count 478 H (150-450) k/uL Sodium (137-145) mmol/L Potassium (3.5-5.1) mmol/L Chloride (98-107) mmol/L Carbon Dioxide (22-30) mmol/L BUN (7-17) mg/dL Creatinine (0.52-1.04) mg/dL Glucose (74-99) mg/dL Calcium (8.4-10.2) mg/dL Alkaline Phosphatase (38-126) U/L Total Protein (6.3-8.2) g/dL Albumin (3.5-5.0) g/dL Microbiology - Last 24 Hours (Table) 09/30/23 15:30 Gram Stain - Final Sputum Sputum Culture - Final 09/29/23 16:40 Blood Culture - Preliminary Blood 10/01/23 08:40 Acid Fast Bacilli Smear - Preliminary Bronchoalviolar Lavage - Right 10/01/23 13:00 Gram Stain - Preliminary Pleural Fluid Body Fluid Culture - Preliminary 10/01/23 08:40 Gram Stain - Preliminary Bronchoalviolar Lavage - Right Assessment and Plan (1) Pneumonia Current Visit: Yes Status: Acute Code(s): J18.9 - PNEUMONIA, UNSPECIFIED ORGANISM SNOMED Code(s): 452574652 (2) Allergy to multiple antibiotics Current Visit: Yes Status: Acute Code(s): Z88.1 - ALLERGY STATUS TO OTHER ANTIBIOTIC AGENTS SNOMED Code(s): 293414318 (3) Lung abscess Current Visit: Yes Status: Acute Code(s): J85.2 - ABSCESS OF LUNG WITHOUT PNEUMONIA SNOMED Code(s): 73716360 Plan: 1patient presented to hospital with sepsis in this patient who did have a fever tachycardia hypoxemia elevated white count source is unlikely pneumonia with question of possible abscess/empyema in this patient with recent surgery we will need to cover for resistant gram-positive as well as gram-negative pathogen. 2patient with the penicillin and cephalosporin allergy that would limit the number of antibiotics safe to use. 3-patient is status post bronchoscopy lavage and also have placement of a pigtail catheter by IR , cultures are pending 4patient to continue with the vancomycin pharmacy to dose however and Azactam 2 g every 8 hours, while waiting for the cultures to finalize Dictation was produced using [employer] dictation software. please excuse any grammatical, word or spelling errors. Time with Patient: Less than 30
--- NOTE | 2023-10-04 18:53 | P.PN ---
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 the patient is status post robotic assisted right upper lobectomy on 08/19/2023, now presented to hospital with persistent cough shortness of breath did have a low-grade fever abnormal CT suspicious for possible pneumonia/lung abscess, the patient is status post bronchoscopy by pulmonary and patient also have a pigtail catheter placed in by IR On today's evaluation that is 10/04/2023, the patient remains to be afebrile, the patient is breathing comfortably on 2 L nasal cannula oxygen and denies any shortness of breath, the patient right-sided chest pain has decreased in intensity, denies any worsening cough or sputum production, patient denies nausea/vomiting /diarrhea and no abdominal pain Patient white count is 9.20, creatinine 0.43 Objective - Vital Signs Vital signs: Vital Signs Temp 97.8 F 10/04/23 08:00 Pulse 111 H 10/04/23 08:00 Resp 18 10/04/23 08:00 BP 132/78 10/04/23 08:00 Pulse Ox 97 10/04/23 08:00 FiO2 Intake & Output 10/03/23 10/04/23 10/04/23 18:59 06:59 18:59 Intake Total 180 118 Balance 180 118 Intake: Oral 180 118 Other: # Voids 2 # Bowel Movements 1 - Exam GENERAL DESCRIPTION: A middle-age female up in bed in no distress RESPIRATORY SYSTEM: Unlabored breathing , decreased breath sounds at the base HEART: S1 S2 regular rate and rhythm , ABDOMEN: Soft , no tenderness EXTREMITIES: No edema feet - Labs CBC & Chem 7: 10/04/23 06:07 10/04/23 06:07 Labs: Abnormal Lab Results - Last 24 Hours (Table) 10/04/23 Range/Units 06:07 Potassium 3.1 L (3.5-5.1) mmol/L Chloride 97 L (98-107) mmol/L Carbon Dioxide 35 H (22-30) mmol/L BUN 4 L (7-17) mg/dL Creatinine 0.43 L (0.52-1.04) mg/dL Calcium 7.7 L (8.4-10.2) mg/dL Microbiology - Last 24 Hours (Table) 10/01/23 08:40 Gram Stain - Final Bronchoalviolar Lavage - Right Bronchial Washings Culture - Final 10/01/23 13:00 Gram Stain - Preliminary Pleural Fluid Body Fluid Culture - Preliminary Gram Positive Bacilli 09/30/23 15:30 Gram Stain - Final Sputum Sputum Culture - Final Assessment and Plan (1) Pneumonia Current Visit: Yes Status: Acute Code(s): J18.9 - PNEUMONIA, UNSPECIFIED ORGANISM SNOMED Code(s): 407872702 (2) Allergy to multiple antibiotics Current Visit: Yes Status: Acute Code(s): Z88.1 - ALLERGY STATUS TO OTHER ANTIBIOTIC AGENTS SNOMED Code(s): 150736110 (3) Lung abscess Current Visit: Yes Status: Acute Code(s): J85.2 - ABSCESS OF LUNG WITHOUT PNEUMONIA SNOMED Code(s): 94060946 Plan: 1patient presented to hospital with sepsis in this patient who did have a fever tachycardia hypoxemia elevated white count source is unlikely pneumonia with question of possible abscess/empyema in this patient with recent surgery we will need to cover for resistant gram-positive as well as gram-negative pathogen. 2patient with the penicillin and cephalosporin allergy that would limit the number of antibiotics safe to use. 3-patient is status post bronchoscopy lavage and also have placement of a pigtail catheter by IR , cultures are pending 4patient did have some panic improvement and will continue with the vancomycin pharmacy to dose however and Azactam 2 g every 8 hours, while waiting for the cultures to finalize to determine discharge antibiotics Dictation was produced using [employer] dictation software. please excuse any grammatical, word or spelling errors. Time with Patient: Less than 30
[2023-10-04] MEDS: HYDROcodone/APAP 5-325MG 1 EACH TAB PO PRN (20:33)
[2023-10-04] MEDS: SENNOSIDES-DOCUSATE SODIUM 1 EACH TAB PO SCH (20:34)
[2023-10-05] MEDS: HYDROmorphone 0.5 MG/0.5 ML SYRINGE IVP PRN ×4 (02:55→22:45)
[2023-10-05] MEDS: PANTOPRAZOLE 40 MG TABLET PO SCH (06:08)
[2023-10-05] MEDS: SODIUM CHLORIDE 0.9% 1,000 ML IV SCH ×3 (06:09→20:22)
[2023-10-05] MEDS ORDERED: VANCOMYCIN TROUGH DUE 1 EACH MISC MISCELLANE ONE (07:00)
[2023-10-05 07:45] LABS: ALT 16 U/L (4-34); AST 18 U/L (14-36); African American GFR (CKD) >90 (>60 ml/min/1.73 sqM); Albumin 2.1 g/dL (3.5-5.0); Albumin/Globulin Ratio 0.8; Alkaline Phosphatase 117 U/L (38-126); Anion Gap 5 mmol/L; Blood Urea Nitrogen 6 mg/dL (7-17); Calcium 7.7 mg/dL (8.4-10.2); Carbon Dioxide 36 mmol/L (22-30); Chloride 97 mmol/L (98-107); Globulin 2.7 g/dL; Glucose 88 mg/dL (74-99); Non-African American GFR(CKD) >90 (>60 ml/min/1.73 sqM); Potassium 3.4 mmol/L (3.5-5.1); Sodium 138 mmol/L (137-145); Total Bilirubin 0.2 mg/dL (0.2-1.3); Total Protein 4.8 g/dL (6.3-8.2)
[2023-10-05] MEDS ORDERED: POTASSIUM BICARBONATE/CIT AC 20 MEQ TABLET.EFF PO ONE (08:30)
[2023-10-05] MEDS: IPRATROPIUM-ALBUTEROL 3 ML NEB INHALATION SCH ×4 (08:59→19:55)
[2023-10-05] MEDS: guaiFENesin 600 MG TABLET.ER PO SCH ×2 (09:04→20:22)
[2023-10-05] MEDS: AZTREONAM 2 GM in SODIUM CHLORIDE 0.9% 100 ML IVPB SCH ×2 (09:05→16:17)
[2023-10-05] MEDS: METOPROLOL TARTRATE 25 MG TAB PO SCH ×2 (09:05→20:22)
[2023-10-05] MEDS: VANCOMYCIN 1,250 MG in SODIUM CHLORIDE 0.9% 250 ML IVPB SCH ×2 (09:05→20:21)
--- NOTE | 2023-10-05 10:24 | P.PN ---
Subjective Progress Note Date: 10/05/23 Principal diagnosis: Pneumonia with possible lung abscess, small right pleural effusion, residual loculated small anterior upper lung pneumothorax, leukocytosis, normocytic normochromic anemia. History of non-small cell carcinoma with neuroendocrine differentiation, consistent with large cell neuroendocrine carcinoma status post robotic-assisted right upper lobectomy on 08/19/2023 and subsequent bronchoscopy with placement of right thoracostomy tube, chronic tobacco dependence with recent cessation, COPD, asthma, hyperlipidemia, GERD, diverticulitis status post bowel resection, osteoarthritis The patient was seen and examined sitting up in bed on the medical oncology unit in no acute distress. States she feels about the same today as she did yesterday. Still has frequent productive cough and some shortness of breath. Has remained afebrile, vitals stable, currently on 2 LPM NC with oxygen saturation in the high 90s. Able to achieve 0059-3412 mL on incentive spir ometer this morning. Has been ambulatory in the room. Sputum culture finalized as normal respiratory hubert, repeated yesterday by pulmonology. Pleural fluid sent from pigtail insertion currently pending but preliminarily growing gram positive bacilli, BAL specimen finalized as negative although this was sent after antibiotics had already been started. Remains on Aztreonam and Vanco per ID. Pigtail drained 110 mL purulent fluid in the last 24 hours, no further lytic instillation planned per Dr. Espino. CXR reviewed. Objective - Vital Signs Vital signs: Vital Signs Temp 98.8 F 10/05/23 07:55 Pulse 100 10/05/23 09:11 Resp 16 10/05/23 01:11 BP 127/79 10/05/23 07:55 Pulse Ox 95 10/05/23 07:55 FiO2 Intake & Output 10/04/23 10/05/23 10/05/23 18:59 06:59 18:59 Intake Total 118 Balance 118 Intake: Oral 118 Other: # Voids 1 2 # Bowel Movements 1 - Exam CONSTITUTIONAL: Appears comfortable, cooperative, no acute distress RESPIRATORY: Lungs sounds clear. Respirations even, nonlabored. Currently on 2 LPM NC with oxygen saturation 99%. Able to achieve 0070-8875 mL on incentive spirometry. Strong productive cough. CARDIOVASCULAR: S1, S2 present. Regular rate and rhythm, sinus rhythm on telemetry. Palpable peripheral pulses bilaterally. No edema present. No calf pain or tenderness noted GASTROINTESTINAL: Abdomen soft, nontender, nondistended. Active bowel sounds present 4 quadrants. Tolerating minimal diet. Positive bowel movement 10/04 GENITOURINARY: Continues to void INTEGUMENTARY: Skin is warm and dry. Thoracic incisions well healed NEUROLOGIC: Cranial nerves II through XII intact MUSKULOSKELETAL: Able to move all extremities, strength equal bilaterally, gait normal PSYCHIATRIC: Alert and oriented to person place and time, appropriate affect, intact judgment and insight INVASIVE TUBES: Right sided pigtail catheter present to continuous wall suction, 110 mL drainage in the last 24 hours - Allied health notes Allied health notes reviewed: nursing - Labs CBC & Chem 7: 10/04/23 06:07 10/05/23 06:44 Labs: Abnormal Lab Results - Last 24 Hours (Table) 10/04/23 10/04/23 10/05/23 Range/Units 06:07 06:07 06:44 RBC 3.01 L (4.10-5.20) X 10*6/uL Hgb 8.1 L (12.0-15.0) g/dL Hct 26.7 L (37.2-46.3) % MCH 26.9 L (27.0-32.0) pg MCHC 30.3 L (32.0-37.0) g/dL RDW 14.8 H (11.5-14.5) % Plt Count 536 H (140-440) X 10*3/uL MPV 8.2 L (9.5-12.2) FL Potassium 3.4 L (3.5-5.1) mmol/L Chloride 97 L (98-107) mmol/L Carbon Dioxide 36 H (22-30) mmol/L BUN 6 L (7-17) mg/dL Creatinine 0.39 L (0.52-1.04) mg/dL Calcium 7.7 L (8.4-10.2) mg/dL Total Protein 4.8 L (6.3-8.2) g/dL Albumin 2.1 L (3.5-5.0) g/dL Procalcitonin 0.15 H (0.02-0.09) ng/mL Microbiology - Last 24 Hours (Table) 10/04/23 12:54 Gram Stain - Preliminary Sputum 09/29/23 16:40 Blood Culture - Final Blood 10/01/23 08:40 Gram Stain - Final Bronchoalviolar Lavage - Right Bronchial Washings Culture - Final - Imaging and Cardiology Chest x-ray: image reviewed Assessment and Plan Assessment: Pneumonia with possible lung abscess, status post bronchoscopy and right sided pigtail catheter placement Small right pleural effusion, residual loculated small anterior upper lung pneumothorax Leukocytosis, secondary to above Normocytic normochromic anemia Non-small cell carcinoma with neuroendocrine differentiation, consistent with large cell neuroendocrine carcinoma status post robotic-assisted right upper lobectomy on 08/19/2023 and subsequent bronchoscopy with placement of right thoracostomy tube Chronic tobacco dependence with recent cessation COPD, FEV1 87%, DLCO 55% Asthma Hyperlipidemia GERD Diverticulitis status post bowel resection Osteoarthritis Plan: Continue to monitor output from pigtail catheter, no further lytic instillation planned Continue IV antibiotics per infectious disease Will monitor daily labs, CXR Wean oxygen as tolerated, encourage use of incentive spirometry 10 times every hour while awake Increase activity as tolerated, out of bed for all meals Pain control per current medication regimen Reinforced continued smoking cessation Continue Mucinex, patient refusing mucomyst-discontinued Bronchodilator per ophthalmology assistant No surgical intervention planned at this time Medical management of other comorbidities per internal medicine, pulmonology, ID More recommendations to follow based on patient's clinical course
[2023-10-05 11:04] LABS: HCT 25.9 % (37.2-46.3); HGB 7.8 g/dL (12.0-15.0); MCH 26.7 pg (27.0-32.0); MCHC 30.1 g/dL (32.0-37.0); MCV 88.7 FL (80.0-97.0); Mean Platelet Volume 8.4 FL (9.5-12.2); NRBC Per 100 WBC 0 X 10*3/uL (0.00-0.01); Platelet Count 531 X 10*3/uL (140-440); RBC 2.92 X 10*6/uL (4.10-5.20); RDW 15.5 % (11.5-14.5); WBC 6.69 X 10*3/uL (4.50-10.00)
--- NOTE | 2023-10-05 11:44 | P.PN ---
Subjective Progress Note Date: 10/05/23 I am seeing this patient in consultation today 09/30/2023 for suspected pulmonary abscess. Patient is a 57-year-old white female with past medical history significant for right upper lobe non-small cell lung carcinoma status post robotic-assisted VATS involving a right upper lobectomy on August 19. She did have a complicated postoperative hospital stay with a persistent right sided pneumothorax and opacification of the right midlung area. She has been closely followed up on an outpatient basis. She does follow Dr. Davey in the pulmonary office, and also had a office visit with Dr. Espino from cardiothoracic surgery on 09/17. She states that she has "not really been 100%" since surgery. More recently she has had symptoms of exertional shortness of breath, right-sided back pain, productive cough with yellow/green sputum sometimes pink tinged, and subjective fevers. She has received courses of Levaquin and doxycycline outpatient. A CT of the chest done 2 days ago demonstrated focal severe consolidation of the right upper lobe measuring 7.7 cm with what appears to be a fluid density concerning for pulmonary abscess. There is an adjacent residual loculated small anterior upper lung pneumothorax measuring 4.5 cm. There is a possible secondary pulmonary abscess or cavitary necrosis with air-fluid level anterior right mid lung measuring 9.2 x 8.2 x 7.4 cm. For this reason, she was directed to the emergency room yesterday. Patient was given doses of Levaquin and vancomycin in the emergency room. She does have a penicillin ALLERGY. Bronchoscopy with BAL done on 08/23/2023 did not identify significant bacterial growth. CBC shows a WBC count of 16, hemoglobin 9.6, hematocrit 30.4, platelets 694. BMP on arrival shows sodium 133, potassium 3.2, chloride 83, serum bicarbonate 34, BUN 12, creatinine 0.5, glucose 112. Normal saline infusing at 130 ML's per hour. Lactic acid level I.9. Patient is currently lying in bed, on 2 L/m nasal cannula, in no acute distress. SPO2 97%. She is slightly tachycardic with a heart rate of 116 bpm. She was febrile with a T-max of 100F. Blood cultures pending. Hemodynamically stable. Patient was seen and examined today on 10/01/23, seems to be doing about the same, continues to have cough and shortness of breath. Cough is productive with thick yellow phlegm. Underwent a bronchoscopy today , please refer to the full operative report. Patient was found to have significant area and secretions coming out of the right middle lobe, mucosa in the right middle lobe was noted to be thick WI edematous, and has quite a bit of abnormal appearance, multiple biopsies from the right lobe bronchus were done, and lavage of the right middle lobe/medial segment was also performed. In the meantime the patient remains on antibiotics, and these will likely be adjusted based on the final culture from the BAL. Patient continues to have leukocytosis with WBC count of 17.9 hemoglobin 8.9, basic metabolic profile is normal Reevaluated today on 10/02/23, patient was seen by interventional radiology yesterday, and she underwent placement of a pigtail catheter into her right lung. Significant purulent drainage is noted into the pleural VAC, chest x-ray is showing improvement, clinically the patient is feeling better, remains on antibiotics, cultures are pending however the Gram stain is showing gram- positive cocci and that is from the pleural effusion fluid. BAL Gram stain is showing moderate PMNs and mixed organisms including gram-negative bacilli and gram-positive cocci. Patient is tolerating antibiotics well, and apparently she had one of placed treatment into the lung. Abscess. Patient refusing to have any more. WBC count is down today to 6.2 from 17.9 hemoglobin is 7.9, basic metabolic profile is normal. Renal profile is normal patient remains in the meantime on vancomycin and on aztreonam. The patient is seen today 10/03/2023 in follow-up on the regular medical floor. She is currently sitting up in a chair at the bedside. Awake and alert in no acute distress. Breathing quite a bit better. Maintaining good O2 saturations in the 90s on room air. She's been afebrile. Hemodynamically stable. Chest x- ray shows improvement in the right-sided empyema. Chest tube remains in place to wall suction. There was another 300 ML's of purulent drainage in the past 24 hours. She did receive alteplase/dornase earlier this morning per CT services. Pleural fluid cultures revealing no growth thus far. Bronchial wash cultures revealing no growth thus far. Sputum culture revealed no growth. White count 5.5. Hemoglobin 7.4. Sodium 136. Potassium 3.4. Bicarb 33. BUN 5. Creatinine 0.52. Glucose 91. She remains on aztreonam and vancomycin. The patient is seen today 10/04/2023 in follow-up on the regular medical floor. She is awake and alert in no acute distress. Sitting up in bed. Maintaining good O2 saturations in the 90s on 4 L/m per nasal cannula. She did undergo bronchoscopy with BAL and biopsies on 10/01/2023. Cytology pending. Pleural fluid cultures are showing gram-positive bacilli. White count 9.2. Hemoglobin 8.1. Platelets 536. Sodium 137. Potassium 3.1. Bicarb 35. BUN 4. Creatinine 0.43. She is continued on aztreonam and vancomycin. Remains on bronchodilators. She does have a productive cough of dark brown colored sputum. Another sputum culture will be sent. Chest x-ray continues to show a small right apical pneumothorax which is increased from prior. There is haziness to the right lung which is unchanged. Pulling about 750 MLS on her incentive spirometer. Right-sided pigtail catheter remains in place to continuous wall suction with approximately 170 ML's of purulent drainage in the past 24 hours. The patient is seen today 10/05/2023 in follow-up on the regular medical floor. She is currently resting in bed. Awake and alert in no acute distress. Feeling a bit better today compared to yesterday. Less cough and congestion. Chest x- ray continues to show a small right apical pneumothorax. Continued haziness to the right lung, pigtail catheter remains in place. Remains to suction. No leak noted. Continued on aztreonam and vancomycin. Pleural fluid culture was positive for gram positive bacilli. Sputum culture pending. Bronchial wash cultures revealed no growth. White count 6.6. Hemoglobin 7.8. Platelets 531. Sodium 138. Potassium 2.4. Bicarb 36. BUN 6. Creatinine 0.39. AST 18. ALT 16. Alk phos 117. Pro-calcitonin 0.15. She continues working well with the incentive spirometer. Continued on bronchodilators. Objective - Vital Signs Vital signs: Vital Signs Temp 98.8 F 10/05/23 07:55 Pulse 100 10/05/23 09:11 Resp 16 10/05/23 01:11 BP 127/79 10/05/23 07:55 Pulse Ox 95 10/05/23 07:55 FiO2 Intake & Output 10/04/23 10/05/23 10/05/23 18:59 06:59 18:59 Intake Total 118 Balance 118 Intake: Oral 118 Other: # Voids 1 2 # Bowel Movements 1 - Exam GENERAL EXAM: Alert, pleasant 57-year-old female, on 2 L nasal cannula, comfortable in no apparent distress. HEAD: Normocephalic. EYES: Normal reaction of pupils, equal size. NOSE: Clear with pink turbinates. THROAT: No erythema or exudates. NECK: No masses, no JVD. CHEST: No chest wall deformity. Right-sided pigtail catheter in place to wall suction. LUNGS: Equal air entry with crackles in the right lung base. CVS: S1 and S2 normal with no audible murmur, regular rhythm. ABDOMEN: No hepatosplenomegaly, normal bowel sounds, no guarding or rigidity. SPINE: No scoliosis or deformity SKIN: No rashes CENTRAL NERVOUS SYSTEM: No focal deficits, tone is normal in all 4 extremities. EXTREMITIES: There is no peripheral edema. No clubbing, no cyanosis. Peripheral pulses are intact. - Labs CBC & Chem 7: 10/05/23 06:44 10/05/23 06:44 Labs: Abnormal Lab Results - Last 24 Hours (Table) 10/04/23 10/05/23 10/05/23 Range/Units 06:07 06:44 06:44 RBC 2.92 L (4.10-5.20) X 10*6/uL Hgb 7.8 L (12.0-15.0) g/dL Hct 25.9 L (37.2-46.3) % MCH 26.7 L (27.0-32.0) pg MCHC 30.1 L (32.0-37.0) g/dL RDW 15.5 H (11.5-14.5) % Plt Count 531 H (140-440) X 10*3/uL MPV 8.4 L (9.5-12.2) FL Potassium 3.4 L (3.5-5.1) mmol/L Chloride 97 L (98-107) mmol/L Carbon Dioxide 36 H (22-30) mmol/L BUN 6 L (7-17) mg/dL Creatinine 0.39 L (0.52-1.04) mg/dL Calcium 7.7 L (8.4-10.2) mg/dL Total Protein 4.8 L (6.3-8.2) g/dL Albumin 2.1 L (3.5-5.0) g/dL Procalcitonin 0.15 H (0.02-0.09) ng/mL Microbiology - Last 24 Hours (Table) 10/04/23 12:54 Gram Stain - Preliminary Sputum 09/29/23 16:40 Blood Culture - Final Blood 10/01/23 08:40 Gram Stain - Final Bronchoalviolar Lavage - Right Bronchial Washings Culture - Final Assessment and Plan Assessment: Non-small cell lung cancer status post right upper lobectomy, done on 2022. Two regional hilar lymph nodes were positive for metastasis. No other lymph nodes involved. Post-operative hospital stay was complicated by persistent residual right apical pneumothorax. During this hospitalization, she did have a follow-up bronchoscopy with BAL done on 08/31/2023, which did not isolate any bacterial organisims. Right pleural fluid culture is showing gram positive bacilli Likely secondary lung abscess, A CT of the chest done 2 days ago demonstrated focal severe consolidation of the right upper lobe measuring 7.7 cm with what appears to be a fluid density concerning for pulmonary abscess. There is an adjacent residual loculated small anterior upper lung pneumothorax measuring 4.5 cm. There is a possible second pulmonary abscess or cavitary necrosis with air-fluid level anterior right mid lung measuring 9.2 x 8.2 x 7.4 cm. status post bronchoscopy and status post pigtail catheter placement into the lung abscess. Pleural fluid culture positive for gram positive bacilli. Remains on vancomycin and aztreonam Leukocytosis, improved Residual right apical loculated pneumothorax, as described above Hypokalemia, being replaced Normocytic normochromic anemia, without any obvious blood loss Chronic obstructive pulmonary disease, with a FEV1 53% of predicted, stable. Former tobacco dependence Plan: The patient was seen and evaluated Chest x-ray, labs and medications reviewed Pleural fluid culture showing gram-positive bacilli Remains on aztreonam and vancomycin Continued on bronchodilators Continues to work with the incentive spirometer Increase her activity as tolerated Titrate the FiO2 as tolerated We will continue to follow This patient was seen independently by the nurse practitioner I have personally seen and examined the patient, performed the documentation and the assessment and plan as written. Number of minutes spent on the visit: 22.
[2023-10-05] MEDS: HYDROcodone/APAP 5-325MG 1 EACH TAB PO PRN ×2 (11:51→20:26)
[2023-10-05 16:09] LABS: Appearance,BF Cloudy
--- NOTE | 2023-10-05 16:38 | P.PN ---
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 the patient is status post robotic assisted right upper lobectomy on 08/19/2023, now presented to hospital with persistent cough shortness of breath did have a low-grade fever abnormal CT suspicious for possible pneumonia/lung abscess, the patient is status post bronchoscopy by pulmonary and patient also have a pigtail catheter placed in by IR On today's evaluation that is 10/05/2023, the patient denies any fever or any chills, the patient is breathing comfortably on 2 L nasal cannula supplemental oxygen, patient denies chest pain shortness of breath, the patient denies any worsening cough or sputum production, patient denies Abdominal pain, no nausea/vomiting or diarrhea Patient white count is 6.69, creatinine 0.39 Objective - Vital Signs Vital signs: Vital Signs Temp 98.8 F 10/05/23 07:55 Pulse 100 10/05/23 09:11 Resp 16 10/05/23 01:11 BP 127/79 10/05/23 07:55 Pulse Ox 95 10/05/23 07:55 FiO2 Intake & Output 10/04/23 10/05/23 10/05/23 18:59 06:59 18:59 Intake Total 118 Balance 118 Intake: Oral 118 Other: # Voids 1 2 # Bowel Movements 1 - Exam GENERAL DESCRIPTION: A middle-age female up in bed in no distress RESPIRATORY SYSTEM: Unlabored breathing , decreased breath sounds at the base HEART: S1 S2 regular rate and rhythm , ABDOMEN: Soft , no tenderness EXTREMITIES: No edema feet - Labs CBC & Chem 7: 10/05/23 06:44 10/05/23 06:44 Labs: Abnormal Lab Results - Last 24 Hours (Table) 10/04/23 10/05/23 10/05/23 Range/Units 06:07 06:44 06:44 RBC 2.92 L (4.10-5.20) X 10*6/uL Hgb 7.8 L (12.0-15.0) g/dL Hct 25.9 L (37.2-46.3) % MCH 26.7 L (27.0-32.0) pg MCHC 30.1 L (32.0-37.0) g/dL RDW 15.5 H (11.5-14.5) % Plt Count 531 H (140-440) X 10*3/uL MPV 8.4 L (9.5-12.2) FL Potassium 3.4 L (3.5-5.1) mmol/L Chloride 97 L (98-107) mmol/L Carbon Dioxide 36 H (22-30) mmol/L BUN 6 L (7-17) mg/dL Creatinine 0.39 L (0.52-1.04) mg/dL Calcium 7.7 L (8.4-10.2) mg/dL Total Protein 4.8 L (6.3-8.2) g/dL Albumin 2.1 L (3.5-5.0) g/dL Procalcitonin 0.15 H (0.02-0.09) ng/mL Microbiology - Last 24 Hours (Table) 10/04/23 12:54 Gram Stain - Preliminary Sputum 09/29/23 16:40 Blood Culture - Final Blood 10/01/23 08:40 Gram Stain - Final Bronchoalviolar Lavage - Right Bronchial Washings Culture - Final Assessment and Plan (1) Pneumonia Current Visit: Yes Status: Acute Code(s): J18.9 - PNEUMONIA, UNSPECIFIED ORGANISM SNOMED Code(s): 881946057 (2) Allergy to multiple antibiotics Current Visit: Yes Status: Acute Code(s): Z88.1 - ALLERGY STATUS TO OTHER ANTIBIOTIC AGENTS SNOMED Code(s): 829466310 (3) Lung abscess Current Visit: Yes Status: Acute Code(s): J85.2 - ABSCESS OF LUNG WITHOUT PNEUMONIA SNOMED Code(s): 62502936 Plan: 1patient presented to hospital with sepsis in this patient who did have a fever tachycardia hypoxemia elevated white count source is unlikely pneumonia with question of possible abscess/empyema in this patient with recent surgery we will need to cover for resistant gram-positive as well as gram-negative pathogen. 2patient with the penicillin and cephalosporin allergy that would limit the number of antibiotics safe to use. 3-patient is status post bronchoscopy lavage and also have placement of a pigtail catheter by IR , cultures are currently growing gram-positive bacilli 4patient did have some clinical improvement and will continue with the vancomycin pharmacy to dose and Azactam 2 g every 8 hours Dictation was produced using [employer]ation software. please excuse any grammatical, word or spelling errors. Time with Patient: Less than 30
--- NOTE | 2023-10-05 19:49 | XR ---
EXAMINATION TYPE: XR chest 1V portable DATE OF EXAM: 10/05/2023 COMPARISON: 10/04/2023 INDICATION: Pneumonia lung abscess TECHNIQUE: Single frontal view of the chest is obtained. FINDINGS: The heart size is normal. The pulmonary vasculature is normal. There is a right apical air-fluid level, stable from comparison. Drainage catheters within the mid ri ght chest. A right pleural fluid collection may be present. IMPRESSION: 1. Stable appearance right lung. Cavitation versus pneumothorax right apex. Small effusion may be pre sent. Continued follow-up is recommended.
--- NOTE | 2023-10-05 21:51 | P.PN ---
Subjective Progress Note Date: 10/05/23 Patient evaluated on medical floor. Pigtail catheter remains in place with 20 mls of output documented overnight. Patient continues with productive cough brown tinged sputum and repeat sputum culture has been sent and pending at this time. Chest xray today reveals cavitation vs. pneumothorax right apex. Small effusion may be present. Bronchial washings reveal inflammation, negative for diagnostic malignancy. Patient does have known NSCLC. Remains on IV aztreonam and IV vancomycin. Procalcitonin level 0.15. Review of Systems Constitutional: Denied any fatigue denied any fever. Cardio vascular: denied any chest pain, palpitations Gastrointestinal: denied any nausea, vomiting, diarrhea Pulmonary: Reports shortness of breath and productive cough. Neurologic denied any new focal deficits All inpatient medications were reviewed and appropriate changes in these medications as dictated in the interval history and assessment and plan. PHYSICAL EXAMINATION: GENERAL: The patient is alert and oriented x3, not in any acute distress. Well developed, well nourished. HEENT: Pupils are round and equally reacting to light. EOMI. No scleral icterus. No conjunctival pallor. Normocephalic, atraumatic. No pharyngeal erythema. No thyromegaly. CARDIOVASCULAR: S1 and S2 present. No murmurs, rubs, or gallops. PULMONARY: Crackles in the right lung base. ABDOMEN: Soft, nontender, nondistended, normoactive bowel sounds. No palpable organomegaly. MUSCULOSKELETAL: No joint swelling or deformity. EXTREMITIES: No cyanosis, clubbing, or pedal edema. NEUROLOGICAL: Gross neurological examination did not reveal any focal deficits. SKIN: No rashes. Assessment Rule out Cavitary lung lesion/pulmonary abscess s/p pigtail catheter placement and lytic instillation Non-small cell lung cancer status post right upper lobectomy, done on 08/19/2023. Residual right apical loculated pneumothorax s/p lobectomy Hypokalemia supplemented Normocytic anemia Chronic obstructive pulmonary disease Former smoker GI prophylaxiss Full Code Plan Continue antibiotics in the form of IV aztreonam and IV vancomycin. The bronchial washings are negative for malignancy and sputum showing gram positive. Repeat sputum culture pending Pigtail catheter remains in place, cardiothoracic services following closely. Continue to encourage incentive spirometer 10 x an hour while awake. Increase activity level. Replace potassium and repeat labs in AM. Continue all other supportive care. The impression and plan of care has been dictated by Margo Stallings, Nurse Practitioner as directed. Dr. Lavern MD I have performed a history and physical examination and medical decision making of this patient, discussed the same with the dictator, and agree with the dictators assessment and plan as written, documented as a scribe. Based on total visit time, I have performed more than 50% of this visit. Objective - Vital Signs Vital signs: Vital Signs Temp 98.8 F 10/05/23 07:55 Pulse 100 10/05/23 09:11 Resp 16 10/05/23 01:11 BP 127/79 10/05/23 07:55 Pulse Ox 95 10/05/23 07:55 FiO2 Intake & Output 10/04/23 10/05/23 10/05/23 18:59 06:59 18:59 Intake Total 118 Balance 118 Intake: Oral 118 Other: # Voids 1 2 # Bowel Movements 1 - Labs CBC & Chem 7: 10/05/23 06:44 10/05/23 06:44 Labs: Abnormal Lab Results - Last 24 Hours (Table) 10/04/23 10/04/23 10/05/23 Range/Units 06:07 06:07 06:44 RBC 3.01 L (4.10-5.20) X 10*6/uL Hgb 8.1 L (12.0-15.0) g/dL Hct 26.7 L (37.2-46.3) % MCH 26.9 L (27.0-32.0) pg MCHC 30.3 L (32.0-37.0) g/dL RDW 14.8 H (11.5-14.5) % Plt Count 536 H (140-440) X 10*3/uL MPV 8.2 L (9.5-12.2) FL Potassium 3.4 L (3.5-5.1) mmol/L Chloride 97 L (98-107) mmol/L Carbon Dioxide 36 H (22-30) mmol/L BUN 6 L (7-17) mg/dL Creatinine 0.39 L (0.52-1.04) mg/dL Calcium 7.7 L (8.4-10.2) mg/dL Total Protein 4.8 L (6.3-8.2) g/dL Albumin 2.1 L (3.5-5.0) g/dL Procalcitonin 0.15 H (0.02-0.09) ng/mL Microbiology - Last 24 Hours (Table) 10/04/23 12:54 Gram Stain - Preliminary Sputum 09/29/23 16:40 Blood Culture - Final Blood 10/01/23 08:40 Gram Stain - Final Bronchoalviolar Lavage - Right Bronchial Washings Culture - Final Assessment and Plan Time with Patient: Less than 30
[2023-10-06] MEDS: AZTREONAM 2 GM in SODIUM CHLORIDE 0.9% 100 ML IVPB SCH ×3 (00:52→16:36)
[2023-10-06] MEDS: SODIUM CHLORIDE 0.9% 1,000 ML IV SCH ×3 (05:21→19:45)
[2023-10-06] MEDS: PANTOPRAZOLE 40 MG TABLET PO SCH (05:21)
[2023-10-06] MEDS: HYDROcodone/APAP 5-325MG 1 EACH TAB PO PRN ×4 (05:21→20:02)
--- NOTE | 2023-10-06 07:52 | XR ---
EXAMINATION TYPE: XR chest 1V portable DATE OF EXAM: 10/06/2023 6:41 AM CLINICAL INDICATION:Female, 57 years old with history of pneumonia; [facility] COMPARISON: Chest radiograph from one day prior. TECHNIQUE: XR chest 1V portable Frontal view of the chest. FINDINGS: The heart size is normal. The pulmonary vasculature is normal. There is a right apical air-fluid level, stable from comparison. Drainage catheters within the mid ri ght chest. A right pleural fluid collection may be present. IMPRESSION: 1. Stable appearance right lung with pneumothorax right versus cavitation apex. Small effusion may be present.
[2023-10-06] MEDS: VANCOMYCIN 1,250 MG in SODIUM CHLORIDE 0.9% 250 ML IVPB SCH ×2 (08:12→19:45)
[2023-10-06] MEDS: METOPROLOL TARTRATE 25 MG TAB PO SCH ×2 (08:12→19:45)
[2023-10-06] MEDS: guaiFENesin 600 MG TABLET.ER PO SCH ×2 (08:12→19:45)
[2023-10-06] MEDS: HYDROmorphone 0.5 MG/0.5 ML SYRINGE IVP PRN ×2 (08:28→18:14)
[2023-10-06] MEDS: IPRATROPIUM-ALBUTEROL 3 ML NEB INHALATION SCH ×4 (08:31→20:00)
--- NOTE | 2023-10-06 09:46 | P.PN ---
Subjective Progress Note Date: 10/06/23 Principal diagnosis: Pneumonia with possible lung abscess, small right pleural effusion, residual loculated small anterior upper lung pneumothorax, leukocytosis, normocytic normochromic anemia. History of non-small cell carcinoma with neuroendocrine differentiation, consistent with large cell neuroendocrine carcinoma status post robotic-assisted right upper lobectomy on 08/19/2023 and subsequent bronchoscopy with placement of right thoracostomy tube, chronic tobacco dependence with recent cessation, COPD, asthma, hyperlipidemia, GERD, diverticulitis status post bowel resection, osteoarthritis The patient was seen and examined sitting up in bed on the medical oncology unit in no acute distress. States she feels about the same today as she did yesterday. Still has frequent productive cough and some shortness of breath. Has remained afebrile, vitals stable, currently on 2 LPM NC with oxygen saturation in the high 90s. Able to achieve 1053-0738 mL on incentive spir ometer this morning. Has been ambulatory in the room. Sputum culture finalized as normal respiratory hubert, repeated by pulmonology. Pleural fluid sent from pigtail insertion currently pending but preliminarily growing gram positive bacilli, BAL specimen finalized as negative although this was sent after antibiotics had already been started. Remains on Aztreonam and Vanco per ID. Pigtail drained 20 mL purulent fluid in the last 24 hours, no further lytic instillation planned. CXR reviewed. Objective - Vital Signs Vital signs: Vital Signs Temp 98.1 F 10/06/23 07:31 Pulse 96 10/06/23 08:51 Resp 18 10/06/23 07:31 BP 121/79 10/06/23 07:31 Pulse Ox 98 10/06/23 08:34 FiO2 Intake & Output 10/05/23 10/06/23 10/06/23 18:59 06:59 18:59 Intake Total 180 Output Total 20 Balance 180 -20 Weight 63.957 kg Intake: Oral 180 Output: Chest Tube Drainage 20 Chest Tube Right Upper 20 Anterior Chest Other: # Voids 5 4 # Bowel Movements 5 - Exam CONSTITUTIONAL: Appears comfortable, cooperative, no acute distress RESPIRATORY: Lungs sounds clear. Respirations even, nonlabored. Currently on 2 LPM NC with oxygen saturation 99%. Able to achieve 9647-7511 mL on incentive spirometry. Strong productive cough. CARDIOVASCULAR: S1, S2 present. Regular rate and rhythm, sinus rhythm on telemetry. Palpable peripheral pulses bilaterally. No edema present. No calf pain or tenderness noted GASTROINTESTINAL: Abdomen soft, nontender, nondistended. Active bowel sounds present 4 quadrants. Tolerating minimal diet. Positive bowel movement GENITOURINARY: Continues to void INTEGUMENTARY: Skin is warm and dry. Thoracic incisions well healed NEUROLOGIC: Cranial nerves II through XII intact MUSKULOSKELETAL: Able to move all extremities, strength equal bilaterally, gait normal PSYCHIATRIC: Alert and oriented to person place and time, appropriate affect, intact judgment and insight INVASIVE TUBES: Right sided pigtail catheter present to continuous wall suction, 20 mL drainage in the last 24 hours - Allied health notes Allied health notes reviewed: nursing - Labs CBC & Chem 7: 10/05/23 06:44 10/05/23 06:44 Labs: Abnormal Lab Results - Last 24 Hours (Table) 10/05/23 Range/Units 06:44 RBC 2.92 L (4.10-5.20) X 10*6/uL Hgb 7.8 L (12.0-15.0) g/dL Hct 25.9 L (37.2-46.3) % MCH 26.7 L (27.0-32.0) pg MCHC 30.1 L (32.0-37.0) g/dL RDW 15.5 H (11.5-14.5) % Plt Count 531 H (140-440) X 10*3/uL MPV 8.4 L (9.5-12.2) FL Microbiology - Last 24 Hours (Table) 10/04/23 12:54 Gram Stain - Preliminary Sputum 09/29/23 16:40 Blood Culture - Final Blood - Imaging and Cardiology Chest x-ray: report reviewed, image reviewed Assessment and Plan Assessment: Pneumonia with possible lung abscess, status post bronchoscopy and right sided pigtail catheter placement Small right pleural effusion, residual loculated small anterior upper lung pneumothorax Leukocytosis, secondary to above Normocytic normochromic anemia Non-small cell carcinoma with neuroendocrine differentiation, consistent with large cell neuroendocrine carcinoma status post robotic-assisted right upper lobectomy on 08/19/2023 and subsequent bronchoscopy with placement of right thoracostomy tube Chronic tobacco dependence with recent cessation COPD, FEV1 87%, DLCO 55% Asthma Hyperlipidemia GERD Diverticulitis status post bowel resection Osteoarthritis Plan: Continue to monitor output from pigtail catheter, no further lytic instillation planned Pigtail placed to water seal, likely will discontinue tomorrow Continue IV antibiotics per infectious disease Will monitor daily labs, CXR Wean oxygen as tolerated, encourage use of incentive spirometry 10 times every hour while awake Increase activity as tolerated, out of bed for all meals Pain control per current medication regimen Reinforced continued smoking cessation Continue Mucinex, patient refusing mucomyst-discontinued 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
[2023-10-06 11:21] LABS: BUN/Creat Ratio 16.25 Ratio (12.00-20.00); Blood Urea Nitrogen 6.5 mg/dL (9.0-27.0); Calcium 7.8 mg/dL (8.7-10.3); Carbon Dioxide 35.2 mmol/L (21.6-31.8); Chloride 101 mmol/L (96-109); Glucose 92 mg/dL (70-110); Potassium 3.3 mmol/L (3.5-5.5); Sodium 144 mmol/L (135-145)
--- NOTE | 2023-10-06 13:22 | P.PN ---
Subjective Progress Note Date: 10/06/23 I am seeing this patient in consultation today 09/30/2023 for suspected pulmonary abscess. Patient is a 57-year-old white female with past medical history significant for right upper lobe non-small cell lung carcinoma status post robotic-assisted VATS involving a right upper lobectomy on August 19. She did have a complicated postoperative hospital stay with a persistent right sided pneumothorax and opacification of the right midlung area. She has been closely followed up on an outpatient basis. She does follow Dr. Davey in the pulmonary office, and also had a office visit with Dr. Espino from cardiothoracic surgery on 09/17. She states that she has "not really been 100%" since surgery. More recently she has had symptoms of exertional shortness of breath, right-sided back pain, productive cough with yellow/green sputum sometimes pink tinged, and subjective fevers. She has received courses of Levaquin and doxycycline outpatient. A CT of the chest done 2 days ago demonstrated focal severe consolidation of the right upper lobe measuring 7.7 cm with what appears to be a fluid density concerning for pulmonary abscess. There is an adjacent residual loculated small anterior upper lung pneumothorax measuring 4.5 cm. There is a possible secondary pulmonary abscess or cavitary necrosis with air-fluid level anterior right mid lung measuring 9.2 x 8.2 x 7.4 cm. For this reason, she was directed to the emergency room yesterday. Patient was given doses of Levaquin and vancomycin in the emergency room. She does have a penicillin ALLERGY. Bronchoscopy with BAL done on 08/23/2023 did not identify significant bacterial growth. CBC shows a WBC count of 16, hemoglobin 9.6, hematocrit 30.4, platelets 694. BMP on arrival shows sodium 133, potassium 3.2, chloride 83, serum bicarbonate 34, BUN 12, creatinine 0.5, glucose 112. Normal saline infusing at 130 ML's per hour. Lactic acid level I.9. Patient is currently lying in bed, on 2 L/m nasal cannula, in no acute distress. SPO2 97%. She is slightly tachycardic with a heart rate of 116 bpm. She was febrile with a T-max of 100F. Blood cultures pending. Hemodynamically stable. Patient was seen and examined today on 10/01/23, seems to be doing about the same, continues to have cough and shortness of breath. Cough is productive with thick yellow phlegm. Underwent a bronchoscopy today , please refer to the full operative report. Patient was found to have significant area and secretions coming out of the right middle lobe, mucosa in the right middle lobe was noted to be thick ME edematous, and has quite a bit of abnormal appearance, multiple biopsies from the right lobe bronchus were done, and lavage of the right middle lobe/medial segment was also performed. In the meantime the patient remains on antibiotics, and these will likely be adjusted based on the final culture from the BAL. Patient continues to have leukocytosis with WBC count of 17.9 hemoglobin 8.9, basic metabolic profile is normal Reevaluated today on 10/02/23, patient was seen by interventional radiology yesterday, and she underwent placement of a pigtail catheter into her right lung. Significant purulent drainage is noted into the pleural VAC, chest x-ray is showing improvement, clinically the patient is feeling better, remains on antibiotics, cultures are pending however the Gram stain is showing gram- positive cocci and that is from the pleural effusion fluid. BAL Gram stain is showing moderate PMNs and mixed organisms including gram-negative bacilli and gram-positive cocci. Patient is tolerating antibiotics well, and apparently she had one of placed treatment into the lung. Abscess. Patient refusing to have any more. WBC count is down today to 6.2 from 17.9 hemoglobin is 7.9, basic metabolic profile is normal. Renal profile is normal patient remains in the meantime on vancomycin and on aztreonam. The patient is seen today 10/03/2023 in follow-up on the regular medical floor. She is currently sitting up in a chair at the bedside. Awake and alert in no acute distress. Breathing quite a bit better. Maintaining good O2 saturations in the 90s on room air. She's been afebrile. Hemodynamically stable. Chest x- ray shows improvement in the right-sided empyema. Chest tube remains in place to wall suction. There was another 300 ML's of purulent drainage in the past 24 hours. She did receive alteplase/dornase earlier this morning per CT services. Pleural fluid cultures revealing no growth thus far. Bronchial wash cultures revealing no growth thus far. Sputum culture revealed no growth. White count 5.5. Hemoglobin 7.4. Sodium 136. Potassium 3.4. Bicarb 33. BUN 5. Creatinine 0.52. Glucose 91. She remains on aztreonam and vancomycin. The patient is seen today 10/04/2023 in follow-up on the regular medical floor. She is awake and alert in no acute distress. Sitting up in bed. Maintaining good O2 saturations in the 90s on 4 L/m per nasal cannula. She did undergo bronchoscopy with BAL and biopsies on 10/01/2023. Cytology pending. Pleural fluid cultures are showing gram-positive bacilli. White count 9.2. Hemoglobin 8.1. Platelets 536. Sodium 137. Potassium 3.1. Bicarb 35. BUN 4. Creatinine 0.43. She is continued on aztreonam and vancomycin. Remains on bronchodilators. She does have a productive cough of dark brown colored sputum. Another sputum culture will be sent. Chest x-ray continues to show a small right apical pneumothorax which is increased from prior. There is haziness to the right lung which is unchanged. Pulling about 750 MLS on her incentive spirometer. Right-sided pigtail catheter remains in place to continuous wall suction with approximately 170 ML's of purulent drainage in the past 24 hours. The patient is seen today 10/05/2023 in follow-up on the regular medical floor. She is currently resting in bed. Awake and alert in no acute distress. Feeling a bit better today compared to yesterday. Less cough and congestion. Chest x- ray continues to show a small right apical pneumothorax. Continued haziness to the right lung, pigtail catheter remains in place. Remains to suction. No leak noted. Continued on aztreonam and vancomycin. Pleural fluid culture was positive for gram positive bacilli. Sputum culture pending. Bronchial wash cultures revealed no growth. White count 6.6. Hemoglobin 7.8. Platelets 531. Sodium 138. Potassium 2.4. Bicarb 36. BUN 6. Creatinine 0.39. AST 18. ALT 16. Alk phos 117. Pro-calcitonin 0.15. She continues working well with the incentive spirometer. Continued on bronchodilators. The patient is seen today 10/06/2023 in follow-up on the regular medical floor. She is currently sitting up at the bedside. Maintaining good O2 saturations in the upper 90s on 2 L/m per nasal cannula. Awake and alert in no acute distress. Continues to feel a bit better each day. Still not quite back to her baseline. Chest x-ray reveals stable appearance of the right lung with pneumothorax versus cavitation apex. Small effusion. Pigtail catheter remains in place. Continues to suction. No leak noted. Pleural fluid cultures revealing brevibacterium species. Sodium 144. Potassium 3.3. Bicarb 35. BUN 6. Creatinine 0.4. Glucose 92. She is continued on vancomycin and aztreonam. Continued on bronchodilators. Continued on Mucinex. Objective - Vital Signs Vital signs: Vital Signs Temp 98.1 F 10/06/23 07:31 Pulse 92 10/06/23 12:11 Resp 18 10/06/23 07:31 BP 121/79 10/06/23 07:31 Pulse Ox 97 10/06/23 12:07 FiO2 Intake & Output 10/05/23 10/06/23 10/06/23 18:59 06:59 18:59 Intake Total 180 120 Output Total 20 Balance 180 -20 120 Weight 63.957 kg Intake: Oral 180 120 Output: Chest Tube Drainage 20 Chest Tube Right Upper 20 Anterior Chest Other: # Voids 5 4 # Bowel Movements 5 - Exam GENERAL EXAM: Alert, pleasant 57-year-old female, in up at the bedside, on 2 L nasal cannula, in no apparent distress. HEAD: Normocephalic. EYES: Normal reaction of pupils, equal size. NOSE: Clear with pink turbinates. THROAT: No erythema or exudates. NECK: No masses, no JVD. CHEST: No chest wall deformity. Right-sided pigtail catheter in place to wall suction. LUNGS: Equal air entry with crackles in the right lung base. CVS: S1 and S2 normal with no audible murmur, regular rhythm. ABDOMEN: No hepatosplenomegaly, normal bowel sounds, no guarding or rigidity. SPINE: No scoliosis or deformity SKIN: No rashes CENTRAL NERVOUS SYSTEM: No focal deficits, tone is normal in all 4 extremities. EXTREMITIES: There is no peripheral edema. No clubbing, no cyanosis. Peripheral pulses are intact. - Labs CBC & Chem 7: 10/05/23 06:44 10/06/23 05:33 Labs: Abnormal Lab Results - Last 24 Hours (Table) 10/06/23 Range/Units 05:33 Potassium 3.3 L (3.5-5.5) mmol/L Carbon Dioxide 35.2 H (21.6-31.8) mmol/L BUN 6.5 L (9.0-27.0) mg/dL Creatinine 0.4 L (0.6-1.5) mg/dL Calcium 7.8 L (8.7-10.3) mg/dL Microbiology - Last 24 Hours (Table) 10/01/23 13:00 Gram Stain - Final Pleural Fluid Body Fluid Culture - Final Brevibacterium species 10/04/23 12:54 Gram Stain - Final Sputum Sputum Culture - Final Assessment and Plan Assessment: Non-small cell lung cancer status post right upper lobectomy, done on 08/19/2023. Two regional hilar lymph nodes were positive for metastasis. No other lymph nodes involved. Post-operative hospital stay was complicated by persistent residual right apical pneumothorax. During this hospitalization, she did have a follow-up bronchoscopy with BAL done on 08/31/2023, which did not isolate any bacterial organisims. Right pleural fluid culture is showing brevibacterium species Likely secondary lung abscess, A CT of the chest done 2 days ago demonstrated focal severe consolidation of the right upper lobe measuring 7.7 cm with what appears to be a fluid density concerning for pulmonary abscess. There is an adjacent residual loculated small anterior upper lung pneumothorax measuring 4.5 cm. There is a possible second pulmonary abscess or cavitary necrosis with air- fluid level anterior right mid lung measuring 9.2 x 8.2 x 7.4 cm. status post bronchoscopy and status post pigtail catheter placement into the lung abscess. Pleural fluid culture positive for gram positive bacilli/brevibacterium species. Remains on vancomycin and aztreonam Leukocytosis, improved Residual right apical loculated pneumothorax, as described above Hypokalemia, being replaced Normocytic normochromic anemia, without any obvious blood loss Chronic obstructive pulmonary disease, with a FEV1 53% of predicted, stable. Former tobacco dependence Plan: The patient was seen and evaluated Chest x-ray, labs and medications reviewed Pleural fluid culture showing Brevibacterium species Remains on aztreonam and vancomycin Continued on bronchodilators Continues to work with the incentive spirometer We will continue to follow This patient was seen independently by the nurse practitioner I have personally seen and examined the patient, performed the documentation and the assessment and plan as written. Number of minutes spent on the visit: 23.
[2023-10-06] MEDS: SENNOSIDES-DOCUSATE SODIUM 1 EACH TAB PO PRN (20:02)
--- NOTE | 2023-10-06 22:27 | P.PN ---
Subjective Progress Note Date: 10/06/23 Patient evaluated on medical floor. Pigtail catheter remains in place with 20 mls of output documented overnight. Patient continues with productive cough brown tinged sputum and repeat sputum culture has been sent and pending at this time. Chest xray today reveals cavitation vs. pneumothorax right apex. Small effusion may be present. Bronchial washings reveal inflammation, negative for diagnostic malignancy. Patient does have known NSCLC. Remains on IV aztreonam and IV vancomycin. Procalcitonin level 0.15. 10/06/2023 Patient evaluated sitting up in bed. No drainage noted from [facility] overnight. Pigtail catheter remains n place. Chest xray today reveals stable appearance right lung with pneumothorax vs. cavitation apex. Small effusion may be present. Repeat sputum culture final showing normal hubert. The pleural fluid is finalized showing brevibacterium species. Review of Systems Constitutional: Denied any fatigue denied any fever. Cardio vascular: denied any chest pain, palpitations Gastrointestinal: denied any nausea, vomiting, diarrhea Pulmonary: Reports shortness of breath and productive cough. Neurologic denied any new focal deficits All inpatient medications were reviewed and appropriate changes in these medications as dictated in the interval history and assessment and plan. PHYSICAL EXAMINATION: GENERAL: The patient is alert and oriented x3, not in any acute distress. Well developed, well nourished. HEENT: Pupils are round and equally reacting to light. EOMI. No scleral icterus. No conjunctival pallor. Normocephalic, atraumatic. No pharyngeal erythema. No thyromegaly. CARDIOVASCULAR: S1 and S2 present. No murmurs, rubs, or gallops. PULMONARY: Crackles in the right lung base. ABDOMEN: Soft, nontender, nondistended, normoactive bowel sounds. No palpable organomegaly. MUSCULOSKELETAL: No joint swelling or deformity. EXTREMITIES: No cyanosis, clubbing, or pedal edema. NEUROLOGICAL: Gross neurological examination did not reveal any focal deficits. SKIN: No rashes. Assessment Rule out Cavitary lung lesion/pulmonary abscess s/p pigtail catheter placement and lytic instillation Non-small cell lung cancer status post right upper lobectomy, done on 08/19. Residual right apical loculated pneumothorax s/p lobectomy Hypokalemia supplemented Normocytic anemia Chronic obstructive pulmonary disease Former smoker GI prophylaxiss Full Code Plan Continue antibiotics in the form of IV aztreonam and IV vancomycin. The bronchial washings are negative for malignancy and sputum showing gram positive. Repeat sputum culture showing normal hubert. Pigtail catheter remains in place, cardiothoracic services following closely. Possible removal of pigtail catheter tomorrow. Continue to encourage incentive spirometer 10 x an hour while awake. Increase activity level. Replace repeat labs in AM. Continue all other supportive care. The impression and plan of care has been dictated by Margo Stallings, Nurse Practitioner as directed. Dr. Lavern MD I have performed a history and physical examination and medical decision making of this patient, discussed the same with the dictator, and agree with the dictators assessment and plan as written, documented as a scribe. Based on total visit time, I have performed more than 50% of this visit. Objective - Vital Signs Vital signs: Vital Signs Temp 98.4 F 10/06/23 19:03 Pulse 106 H 10/06/23 20:14 Resp 16 10/06/23 19:03 BP 126/74 10/06/23 19:03 Pulse Ox 95 10/06/23 19:03 FiO2 Intake & Output 10/06/23 10/06/23 10/07/23 06:59 18:59 06:59 Intake Total 810 Output Total 20 400 Balance -20 410 Intake: Intake, IV Titration 450 Amount Aztreonam 2 gm In Sodium 200 Chloride 0.9% 100 ml @ 33 .3 mls/hr IVPB Q8HR [facility] Rx#:[id number] Vancomycin 1,250 mg In 250 Sodium Chloride 0.9% 250 ml @ 125 mls/hr IVPB Q12H [facility] Rx#:[id number] Oral 360 Output: Chest Tube Drainage 20 Chest Tube Right Upper 20 Anterior Chest Urine 400 Other: # Voids 4 - Labs CBC & Chem 7: 10/05/23 06:44 10/06/23 05:33 Labs: Abnormal Lab Results - Last 24 Hours (Table) 10/06/23 Range/Units 05:33 Potassium 3.3 L (3.5-5.5) mmol/L Carbon Dioxide 35.2 H (21.6-31.8) mmol/L BUN 6.5 L (9.0-27.0) mg/dL Creatinine 0.4 L (0.6-1.5) mg/dL Calcium 7.8 L (8.7-10.3) mg/dL Microbiology - Last 24 Hours (Table) 10/01/23 13:00 Gram Stain - Final Pleural Fluid Body Fluid Culture - Final Brevibacterium species 10/04/23 12:54 Gram Stain - Final Sputum Sputum Culture - Final Assessment and Plan Time with Patient: Less than 30
[2023-10-07] MEDS: AZTREONAM 2 GM in SODIUM CHLORIDE 0.9% 100 ML IVPB SCH ×2 (00:24→08:04)
[2023-10-07] MEDS: HYDROcodone/APAP 5-325MG 1 EACH TAB PO PRN ×4 (00:27→18:45)
[2023-10-07] MEDS: SODIUM CHLORIDE 0.9% 1,000 ML IV SCH (03:27)
[2023-10-07] MEDS: PANTOPRAZOLE 40 MG TABLET PO SCH (05:03)
[2023-10-07] MEDS: HYDROmorphone 0.5 MG/0.5 ML SYRINGE IVP PRN ×5 (05:03→19:52)
[2023-10-07] MEDS: VANCOMYCIN 1,250 MG in SODIUM CHLORIDE 0.9% 250 ML IVPB SCH ×2 (08:03→19:53)
[2023-10-07] MEDS: METOPROLOL TARTRATE 25 MG TAB PO SCH ×2 (08:03→19:52)
[2023-10-07] MEDS: guaiFENesin 600 MG TABLET.ER PO SCH ×2 (08:03→19:52)
[2023-10-07] MEDS: IPRATROPIUM-ALBUTEROL 3 ML NEB INHALATION SCH ×4 (08:14→19:43)
--- NOTE | 2023-10-07 08:22 | XR ---
EXAMINATION TYPE: XR chest 1V portable DATE OF EXAM: 10/07/2023 HISTORY: Shortness of breath. COMPARISON: 10/06/2023 TECHNIQUE: Single view of the chest is submitted. FINDINGS: Right apical lucency persists which may reflect loculated pneumothorax versus cavitary process. Right mid lung field pigtail catheter remains in place overlying the stable opacity. Subpulmonic right bas ilar effusion. The left lung is clear. There is no evidence for focal infiltrate. The heart is stable. Hilar and mediastinal structures are within normal limits. Degenerative changes are seen of the dorsal spine. IMPRESSION: 1. Overall stable chest.
[2023-10-07] MEDS ORDERED: FUROSEMIDE 10 MG/ML 2 ML VIAL IV ONE (08:55)
[2023-10-07 09:21] LABS: African American GFR (CKD) >90 (>60 ml/min/1.73 sqM); Anion Gap 4 mmol/L; Blood Urea Nitrogen 9 mg/dL (7-17); Carbon Dioxide 38 mmol/L (22-30); Chloride 97 mmol/L (98-107); Glucose 84 mg/dL (74-99); Non-African American GFR(CKD) >90 (>60 ml/min/1.73 sqM); Potassium 3.5 mmol/L (3.5-5.1); Sodium 139 mmol/L (137-145)
--- NOTE | 2023-10-07 11:20 | CT ---
Exam: CT Chest without contrast. Date: 10/07/2023. Comparison: 09/28/2023. History: Evaluate lung abscess. Technique: CT examination of the chest was performed without contrast. Coronal and sagittal reformats were performed. CT dose lowering techniques were used, to include: automated exposure control, adjus tment for patient size, and/or use of iterative reconstruction. FINDINGS: CHEST WALL: There is some air seen within the lateral aspect of the pectoralis major muscle which is new since the previous examination. This could represent an area of developing abscess in this locati on of the pectoralis musculature also appears thickened along its course. Pigtail catheter is seen tr aversing through this location Mediastinum and Crystal: There is no axillary, mediastinal or hilar lymphadenopathy. Pleural and Pericardial spaces: Small left and moderate right pleural effusion. Upper Abdomen: The visualized upper abdomen is unremarkable. Cardiovascular: The thoracic aorta is normal in size. Lung Parenchyma and Airways: Pigtail catheter is seen anteriorly along the inferior right chest wall. There appears to be a residual lung abscess and measures approximately 6.0 x 5.0 cm, previously 8.2 x 7.4 cm. This is overlying the region of the right middle lobe. More superiorly within the apical re gion there is a air-fluid level with a fluid content decreased since the previous examination. This m ay relate to residual infection in this location as well. Collections may communicate with one anothe r. Bones: No fracture or aggressive osseous lesion. IMPRESSION: 1. Residual lung abscess as above with significant fluid content remaining. This is markedly limited without contrast. 2. Thickening of the right pectoralis major musculature with some air and possibly fluid within and m ay relate to developing infection in this location. Pigtail catheter appears to traverse through the chest wall along the inferior margin of this potential collection. 3. Bilateral pleural effusions as above.
--- NOTE | 2023-10-07 12:03 | P.PN ---
Subjective Progress Note Date: 10/07/23 I am seeing this patient in consultation today 09/30/2023 for suspected pulmonary abscess. Patient is a 57-year-old white female with past medical history significant for right upper lobe non-small cell lung carcinoma status post robotic-assisted VATS involving a right upper lobectomy on August 19. She did have a complicated postoperative hospital stay with a persistent right sided pneumothorax and opacification of the right midlung area. She has been closely followed up on an outpatient basis. She does follow Dr. Davey in the pulmonary office, and also had a office visit with Dr. Espino from cardiothoracic surgery on 09/17. She states that she has "not really been 100%" since surgery. More recently she has had symptoms of exertional shortness of breath, right-sided back pain, productive cough with yellow/green sputum sometimes pink tinged, and subjective fevers. She has received courses of Levaquin and doxycycline outpatient. A CT of the chest done 2 days ago demonstrated focal severe consolidation of the right upper lobe measuring 7.7 cm with what appears to be a fluid density concerning for pulmonary abscess. There is an adjacent residual loculated small anterior upper lung pneumothorax measuring 4.5 cm. There is a possible secondary pulmonary abscess or cavitary necrosis with air-fluid level anterior right mid lung measuring 9.2 x 8.2 x 7.4 cm. For this reason, she was directed to the emergency room yesterday. Patient was given doses of Levaquin and vancomycin in the emergency room. She does have a penicillin ALLERGY. Bronchoscopy with BAL done on 08/23/2023 did not identify significant bacterial growth. CBC shows a WBC count of 16, hemoglobin 9.6, hematocrit 30.4, platelets 694. BMP on arrival shows sodium 133, potassium 3.2, chloride 83, serum bicarbonate 34, BUN 12, creatinine 0.5, glucose 112. Normal saline infusing at 130 ML's per hour. Lactic acid level I.9. Patient is currently lying in bed, on 2 L/m nasal cannula, in no acute distress. SPO2 97%. She is slightly tachycardic with a heart rate of 116 bpm. She was febrile with a T-max of 100F. Blood cultures pending. Hemodynamically stable. Patient was seen and examined today on 10/01/23, seems to be doing about the same, continues to have cough and shortness of breath. Cough is productive with thick yellow phlegm. Underwent a bronchoscopy today , please refer to the full operative report. Patient was found to have significant area and secretions coming out of the right middle lobe, mucosa in the right middle lobe was noted to be thick DE edematous, and has quite a bit of abnormal appearance, multiple biopsies from the right lobe bronchus were done, and lavage of the right middle lobe/medial segment was also performed. In the meantime the patient remains on antibiotics, and these will likely be adjusted based on the final culture from the BAL. Patient continues to have leukocytosis with WBC count of 17.9 hemoglobin 8.9, basic metabolic profile is normal Reevaluated today on 10/02/23, patient was seen by interventional radiology yesterday, and she underwent placement of a pigtail catheter into her right lung. Significant purulent drainage is noted into the pleural VAC, chest x-ray is showing improvement, clinically the patient is feeling better, remains on antibiotics, cultures are pending however the Gram stain is showing gram- positive cocci and that is from the pleural effusion fluid. BAL Gram stain is showing moderate PMNs and mixed organisms including gram-negative bacilli and gram-positive cocci. Patient is tolerating antibiotics well, and apparently she had one of placed treatment into the lung. Abscess. Patient refusing to have any more. WBC count is down today to 6.2 from 17.9 hemoglobin is 7.9, basic metabolic profile is normal. Renal profile is normal patient remains in the meantime on vancomycin and on aztreonam. The patient is seen today 10/03/2023 in follow-up on the regular medical floor. She is currently sitting up in a chair at the bedside. Awake and alert in no acute distress. Breathing quite a bit better. Maintaining good O2 saturations in the 90s on room air. She's been afebrile. Hemodynamically stable. Chest x- ray shows improvement in the right-sided empyema. Chest tube remains in place to wall suction. There was another 300 ML's of purulent drainage in the past 24 hours. She did receive alteplase/dornase earlier this morning per CT services. Pleural fluid cultures revealing no growth thus far. Bronchial wash cultures revealing no growth thus far. Sputum culture revealed no growth. White count 5.5. Hemoglobin 7.4. Sodium 136. Potassium 3.4. Bicarb 33. BUN 5. Creatinine 0.52. Glucose 91. She remains on aztreonam and vancomycin. The patient is seen today 10/04/2023 in follow-up on the regular medical floor. She is awake and alert in no acute distress. Sitting up in bed. Maintaining good O2 saturations in the 90s on 4 L/m per nasal cannula. She did undergo bronchoscopy with BAL and biopsies on 10/01/2023. Cytology pending. Pleural fluid cultures are showing gram-positive bacilli. White count 9.2. Hemoglobin 8.1. Platelets 536. Sodium 137. Potassium 3.1. Bicarb 35. BUN 4. Creatinine 0.43. She is continued on aztreonam and vancomycin. Remains on bronchodilators. She does have a productive cough of dark brown colored sputum. Another sputum culture will be sent. Chest x-ray continues to show a small right apical pneumothorax which is increased from prior. There is haziness to the right lung which is unchanged. Pulling about 750 MLS on her incentive spirometer. Right-sided pigtail catheter remains in place to continuous wall suction with approximately 170 ML's of purulent drainage in the past 24 hours. The patient is seen today 10/05/2023 in follow-up on the regular medical floor. She is currently resting in bed. Awake and alert in no acute distress. Feeling a bit better today compared to yesterday. Less cough and congestion. Chest x- ray continues to show a small right apical pneumothorax. Continued haziness to the right lung, pigtail catheter remains in place. Remains to suction. No leak noted. Continued on aztreonam and vancomycin. Pleural fluid culture was positive for gram positive bacilli. Sputum culture pending. Bronchial wash cultures revealed no growth. White count 6.6. Hemoglobin 7.8. Platelets 531. Sodium 138. Potassium 2.4. Bicarb 36. BUN 6. Creatinine 0.39. AST 18. ALT 16. Alk phos 117. Pro-calcitonin 0.15. She continues working well with the incentive spirometer. Continued on bronchodilators. The patient is seen today 10/06/2023 in follow-up on the regular medical floor. She is currently sitting up at the bedside. Maintaining good O2 saturations in the upper 90s on 2 L/m per nasal cannula. Awake and alert in no acute distress. Continues to feel a bit better each day. Still not quite back to her baseline. Chest x-ray reveals stable appearance of the right lung with pneumothorax versus cavitation apex. Small effusion. Pigtail catheter remains in place. Continues to suction. No leak noted. Pleural fluid cultures revealing brevibacterium species. Sodium 144. Potassium 3.3. Bicarb 35. BUN 6. Creatinine 0.4. Glucose 92. She is continued on vancomycin and aztreonam. Continued on bronchodilators. Continued on Mucinex. The patient is seen today 10/07/2023 in follow-up on the regular medical floor. She is awake and alert in no acute distress. Feeling a bit better today compared to yesterday. Maintaining good O2 saturations in the 90s on 2 L per nasal cannula. Normal saline at 20 ML's per hour. Chest x-ray reveals right apical lucency persists which may reflect loculated pneumothorax versus cavitary process. Right midlung field pigtail catheter remains in place overlying the stable opacity. Subpulmonic right basilar effusion. Left lung is clear. Computed tomography scan of the chest revealed residual lung abscess with significant fluid content remaining. There is thickening of the right pectoralis major musculature with some air and possibly fluid within and may relate to developing infection. Pigtail catheter appears to traverse through the chest wall along the inferior margin of this potential collection. Bilateral pleural effusions as mentioned. Hemoglobin 39. Potassium 3.5. Bicarb 30. BUN 9. Creatinine 0.40. She is continued on vancomycin. Completed aztreonam. Objective - Vital Signs Vital signs: Vital Signs Temp 98.1 F 10/07/23 07:42 Pulse 95 10/07/23 07:42 Resp 16 10/07/23 07:42 BP 126/77 10/07/23 07:42 Pulse Ox 95 10/07/23 08:15 FiO2 Intake & Output 10/06/23 10/07/23 10/07/23 18:59 06:59 18:59 Intake Total 810 240 Output Total 400 10 Balance 410 -10 240 Intake: Intake, IV Titration 450 Amount Aztreonam 2 gm In Sodium 200 Chloride 0.9% 100 ml @ 33 .3 mls/hr IVPB Q8HR [facility] Rx#:[id number] Vancomycin 1,250 mg In 250 Sodium Chloride 0.9% 250 ml @ 125 mls/hr IVPB Q12H [facility] Rx#:[id number] Oral 360 240 Output: Drainage 10 Right Upper Anterior 10 Chest Urine 400 Other: Voiding Method Bedside Commode # Voids 2 - Exam GENERAL EXAM: Alert, pleasant, pale, weak 57-year-old female, on 2 L nasal cannula, in no apparent distress. HEAD: Normocephalic. EYES: Normal reaction of pupils, equal size. NOSE: Clear with pink turbinates. THROAT: No erythema or exudates. NECK: No masses, no JVD. CHEST: No chest wall deformity. Right-sided pigtail catheter in place to wall suction. LUNGS: Equal air entry with crackles in the right lung base. CVS: S1 and S2 normal with no audible murmur, regular rhythm. ABDOMEN: No hepatosplenomegaly, normal bowel sounds, no guarding or rigidity. SPINE: No scoliosis or deformity SKIN: No rashes CENTRAL NERVOUS SYSTEM: No focal deficits, tone is normal in all 4 extremities. EXTREMITIES: There is no peripheral edema. No clubbing, no cyanosis. Peripheral pulses are intact. - Labs CBC & Chem 7: 10/05/23 06:44 10/07/23 08:48 Labs: Abnormal Lab Results - Last 24 Hours (Table) 10/07/23 Range/Units 08:48 Chloride 97 L (98-107) mmol/L Carbon Dioxide 38 H (22-30) mmol/L Creatinine 0.40 L (0.52-1.04) mg/dL Calcium 8.0 L (8.4-10.2) mg/dL Microbiology - Last 24 Hours (Table) 10/01/23 13:00 Gram Stain - Final Pleural Fluid Body Fluid Culture - Final Brevibacterium species 10/04/23 12:54 Gram Stain - Final Sputum Sputum Culture - Final Assessment and Plan Assessment: Non-small cell lung cancer status post right upper lobectomy, done on 08/19/2023. Two regional hilar lymph nodes were positive for metastasis. No other lymph nodes involved. Post-operative hospital stay was complicated by persistent residual right apical pneumothorax. During this hospitalization, she did have a follow-up bronchoscopy with BAL done on 08/31/2023, which did not isolate any bacterial organisims. Right pleural fluid culture is showing brevibacterium species Likely secondary lung abscess, A CT of the chest 09/28/2023 demonstrated focal severe consolidation of the right upper lobe measuring 7.7 cm with what appears to be a fluid density concerning for pulmonary abscess. There is an adjacent residual loculated small anterior upper lung pneumothorax measuring 4.5 cm. There is a possible second pulmonary abscess or cavitary necrosis with air-fluid level anterior right mid lung measuring 9.2 x 8.2 x 7.4 cm. status post bronchoscopy and status post pigtail catheter placement into the lung abscess. Pleural fluid culture positive for gram positive bacilli/brevibacterium species. Remains on vancomycin and completed aztreonam. Follow-up computed tomography scan today 10/07/2023 continues to show a residual lung abscess measuring approximate 6.0 x 5.0 cm, previously 8.2 x 7.4 cm's. Leukocytosis, improved Residual right apical loculated pneumothorax, as described above Hypokalemia, being replaced Normocytic normochromic anemia, without any obvious blood loss Chronic obstructive pulmonary disease, with a FEV1 53% of predicted, stable. Former tobacco dependence Plan: The patient was seen and evaluated CT scan of the chest, chest x-ray, labs and medications reviewed Remains on vancomycin, completed aztreonam Continued on bronchodilators Continues to work with the incentive spirometer Increase her activity as tolerated Titrate the FiO2 as tolerated CT service is following closely Pigtail catheter remains in place We will continue to follow This patient was seen independently by the nurse practitioner I have personally seen and examined the patient, performed the documentation and the assessment and plan as written. Number of minutes spent on the visit: 24.
--- NOTE | 2023-10-07 13:13 | P.PN ---
Subjective Progress Note Date: 10/07/23 Principal diagnosis: Pneumonia with possible lung abscess, small right pleural effusion, residual loculated small anterior upper lung pneumothorax, leukocytosis, normocytic normochromic anemia. History of non-small cell carcinoma with neuroendocrine differentiation, consistent with large cell neuroendocrine carcinoma status post robotic-assisted right upper lobectomy on 08/19/2023 and subsequent bronchoscopy with placement of right thoracostomy tube, chronic tobacco dependence with recent cessation, COPD, asthma, hyperlipidemia, GERD, diverticulitis status post bowel resection, osteoarthritis The patient was seen and examined sitting up in bed on the medical oncology unit in no acute distress. States she feels about the same today as she did yesterday. Still has frequent productive cough and some shortness of breath. Has remained afebrile, vitals stable, currently on 2 LPM NC with oxygen saturation in the high 90s. Able to achieve 0850-2164 mL on incentive spir ometer this morning. Has been ambulatory in the room. Sputum culture finalized as normal respiratory hubert, repeated by pulmonology which is also finalized as negative. Pleural fluid sent from pigtail insertion finalized growing Brevibacterium species, BAL specimen finalized as negative. Remains on Aztreonam and Vanco per ID. Pigtail drained 10 mL purulent fluid in the last 24 hours, was placed to waterseal yesterday. CXR, repeat CT scan reviewed. Objective - Vital Signs Vital signs: Vital Signs Temp 98.1 F 10/07/23 07:42 Pulse 95 10/07/23 07:42 Resp 16 10/07/23 07:42 BP 126/77 10/07/23 07:42 Pulse Ox 95 10/07/23 08:15 FiO2 Intake & Output 10/06/23 10/07/23 10/07/23 18:59 06:59 18:59 Intake Total 810 240 Output Total 400 10 Balance 410 -10 240 Intake: Intake, IV Titration 450 Amount Aztreonam 2 gm In Sodium 200 Chloride 0.9% 100 ml @ 33 .3 mls/hr IVPB Q8HR [facility] Rx#:[id number] Vancomycin 1,250 mg In 250 Sodium Chloride 0.9% 250 ml @ 125 mls/hr IVPB Q12H KARINA Rx#:[id number] Oral 360 240 Output: Drainage 10 Right Upper Anterior 10 Chest Urine 400 Other: # Voids 2 - Exam CONSTITUTIONAL: Appears comfortable, cooperative, no acute distress RESPIRATORY: Lungs sounds clear. Respirations even, nonlabored. Currently on 2 LPM NC with oxygen saturation 97%. Able to achieve 4903-7505 mL on incentive spirometry. Strong productive cough. CARDIOVASCULAR: S1, S2 present. Regular rate and rhythm, sinus rhythm on telemetry. Palpable peripheral pulses bilaterally. No edema present. No calf pain or tenderness noted GASTROINTESTINAL: Abdomen soft, nontender, nondistended. Active bowel sounds present 4 quadrants. Tolerating minimal diet. Positive bowel movement GENITOURINARY: Continues to void INTEGUMENTARY: Skin is warm and dry. Thoracic incisions well healed NEUROLOGIC: Cranial nerves II through XII intact MUSKULOSKELETAL: Able to move all extremities, strength equal bilaterally, gait normal PSYCHIATRIC: Alert and oriented to person place and time, appropriate affect, intact judgment and insight INVASIVE TUBES: Right sided pigtail catheter present to [facility], [address] bella in the last 24 hours - Allied health notes Allied health notes reviewed: nursing - Labs CBC & Chem 7: 10/05/23 06:44 10/07/23 08:48 Labs: Abnormal Lab Results - Last 24 Hours (Table) 10/06/23 10/07/23 Range/Units 05:33 08:48 Potassium 3.3 L (3.5-5.5) mmol/L Chloride 97 L (98-107) mmol/L Carbon Dioxide 35.2 H 38 H (21.6-31.8) mmol/L BUN 6.5 L (9.0-27.0) mg/dL Creatinine 0.4 L 0.40 L (0.6-1.5) mg/dL Calcium 7.8 L 8.0 L (8.7-10.3) mg/dL Microbiology - Last 24 Hours (Table) 10/01/23 13:00 Gram Stain - Final Pleural Fluid Body Fluid Culture - Final Brevibacterium species 10/04/23 12:54 Gram Stain - Final Sputum Sputum Culture - Final - Imaging and Cardiology Chest x-ray: report reviewed, image reviewed CT scan - chest: image reviewed Assessment and Plan Assessment: Pneumonia with possible lung abscess, status post bronchoscopy and right sided pigtail catheter placement Small right pleural effusion, residual loculated small anterior upper lung pneumothorax Leukocytosis, secondary to above Normocytic normochromic anemia Non-small cell carcinoma with neuroendocrine differentiation, consistent with large cell neuroendocrine carcinoma status post robotic-assisted right upper lobectomy on 08/19/2023 and subsequent bronchoscopy with placement of right thoracostomy tube Chronic tobacco dependence with recent cessation COPD, FEV1 87%, DLCO 55% Asthma Hyperlipidemia GERD Diverticulitis status post bowel resection Osteoarthritis Plan: We'll discontinue pigtail catheter Continue IV antibiotics per infectious disease Will monitor daily labs, CXR Wean oxygen as tolerated, encourage use of incentive spirometry 10 times every hour while awake Increase activity as tolerated, out of bed for all meals Pain control per current medication regimen Reinforced continued smoking cessation Continue Mucinex, patient refusing mucomyst-discontinued Bronchodilator per furniture mover No surgical intervention planned Medical management of other comorbidities per internal medicine, pulmonology, ID More recommendations to follow based on patient's clinical course
[2023-10-07] MEDS ORDERED: LIDOCAINE 1% INJ 10MG/ML (5 ML VIAL-PF) SQ ONE (14:20)
--- NOTE | 2023-10-07 15:10 | P.PN ---
Subjective Progress Note Date: 10/06/23 Principal diagnosis: Reason for follow-up is pneumonia/lung abscess Patient is a 57-year-old female with a past medical history significant for COPD hypertension lipidemia osteomyelitis with a recent diagnosis of right upper lobe lung cancer pathology non-small cell with neuroendocrine differentiation the patient is status post robotic assisted right upper lobectomy on 08/19/2023, now presented to hospital with persistent cough shortness of breath did have a low-grade fever abnormal CT suspicious for possible pneumonia/lung abscess, the patient is status post bronchoscopy by pulmonary and patient also have a pigtail catheter placed in by IR On today's evaluation that is 10/06/2023, the patient remains to be febrile, the patient is breathing comfortably on 2 L nasal cannula oxygen, The patient denies having any shortness of breath and right-sided chest pain has decreased and cough is decreased in intensity, patient denies Abdominal pain, no nausea/vomiting or diarrhea Patient white count is 6.69 as of 10/05/2023, creatinine 0.4 Objective - Vital Signs Vital signs: Vital Signs Temp 98.1 F 10/06/23 07:31 Pulse 92 10/06/23 12:11 Resp 18 10/06/23 07:31 BP 121/79 10/06/23 07:31 Pulse Ox 97 10/06/23 12:07 FiO2 Intake & Output 10/05/23 10/06/23 10/06/23 18:59 06:59 18:59 Intake Total 180 120 Output Total 20 Balance 180 -20 120 Weight 63.957 kg Intake: Oral 180 120 Output: Chest Tube Drainage 20 Chest Tube Right Upper 20 Anterior Chest Other: # Voids 5 4 # Bowel Movements 5 - Exam GENERAL DESCRIPTION: A middle-age female up in bed in no distress RESPIRATORY SYSTEM: Unlabored breathing , decreased breath sounds at the base HEART: S1 S2 regular rate and rhythm , ABDOMEN: Soft , no tenderness EXTREMITIES: No edema feet - Labs CBC & Chem 7: 10/05/23 06:44 10/07/23 08:48 Labs: Abnormal Lab Results - Last 24 Hours (Table) 10/06/23 Range/Units 05:33 Potassium 3.3 L (3.5-5.5) mmol/L Carbon Dioxide 35.2 H (21.6-31.8) mmol/L BUN 6.5 L (9.0-27.0) mg/dL Creatinine 0.4 L (0.6-1.5) mg/dL Calcium 7.8 L (8.7-10.3) mg/dL Microbiology - Last 24 Hours (Table) 10/01/23 13:00 Gram Stain - Final Pleural Fluid Body Fluid Culture - Final Brevibacterium species 10/04/23 12:54 Gram Stain - Final Sputum Sputum Culture - Final Assessment and Plan (1) Pneumonia Current Visit: Yes Status: Acute Code(s): J18.9 - PNEUMONIA, UNSPECIFIED ORGANISM SNOMED Code(s): 397098104 (2) Allergy to multiple antibiotics Current Visit: Yes Status: Acute Code(s): Z88.1 - ALLERGY STATUS TO OTHER ANTIBIOTIC AGENTS SNOMED Code(s): 282375781 (3) Lung abscess Current Visit: Yes Status: Acute Code(s): J85.2 - ABSCESS OF LUNG WITHOUT PNEUMONIA SNOMED Code(s): 70776938 Plan: 1patient presented to hospital with sepsis in this patient who did have a fever tachycardia hypoxemia elevated white count source is unlikely pneumonia with question of possible abscess/empyema in this patient with recent surgery we will need to cover for resistant gram-positive as well as gram-negative pathogen. 2patient with the penicillin and cephalosporin allergy that would limit the number of antibiotics safe to use. 3-patient is status post bronchoscopy lavage and also have placement of a pigtail catheter by IR , cultures are currently growing gram-positive bacilli 4patient slowly clinically improving will continue with vancomycin pharmacy to dose and Azactam 2 g every 8 hours while waiting for the cultures to finalize Dictation was produced using [employer] dictation software. please excuse any grammatical, word or spelling errors. Time with Patient: Less than 30
--- NOTE | 2023-10-07 15:12 | P.PN ---
Subjective Progress Note Date: 10/07/23 Principal diagnosis: Reason for follow-up is pneumonia/lung abscess Patient is a 57-year-old female with a past medical history significant for COPD hypertension lipidemia osteomyelitis with a recent diagnosis of right upper lobe lung cancer pathology non-small cell with neuroendocrine differentiation the patient is status post robotic assisted right upper lobectomy on 08/19/2023, now presented to hospital with persistent cough shortness of breath did have a low-grade fever abnormal CT suspicious for possible pneumonia/lung abscess, the patient is status post bronchoscopy by pulmonary and patient also have a pigtail catheter placed in by IR On today's evaluation that is 10/07/2023, the patient denies any fever or any chills, the patient is breathing comfortably on 2 L nasal cannula oxygen and denies any shortness of breath, the patient right-sided chest pain has decreased in intensity, also decrease in intensity with less sputum production, patient denies nausea/vomiting /diarrhea and no abdominal pain Patient white count is 6.69 as of 10/05/2023, creatinine 0.4, her fluid culture growing Brevibacterium species Objective - Vital Signs Vital signs: Vital Signs Temp 98.1 F 10/07/23 07:42 Pulse 95 10/07/23 07:42 Resp 16 10/07/23 07:42 BP 126/77 10/07/23 07:42 Pulse Ox 95 10/07/23 08:15 FiO2 Intake & Output 10/06/23 10/07/23 10/07/23 18:59 06:59 18:59 Intake Total 810 240 Output Total 400 10 Balance 410 -10 240 Intake: Intake, IV Titration 450 Amount Aztreonam 2 gm In Sodium 200 Chloride 0.9% 100 ml @ 33 .3 mls/hr IVPB Q8HR [facility] Rx#:[id number] Vancomycin 1,250 mg In 250 Sodium Chloride 0.9% 250 ml @ 125 mls/hr IVPB Q12H [facility]INA Rx#:[id number] Oral 360 240 Output: Drainage 10 Right Upper Anterior 10 Chest Urine 400 Other: Voiding Method Bedside Commode # Voids 2 - Exam GENERAL DESCRIPTION: A middle-age female up in bed in no distress RESPIRATORY SYSTEM: Unlabored breathing , decreased breath sounds at the base HEART: S1 S2 regular rate and rhythm , ABDOMEN: Soft , no tenderness EXTREMITIES: No edema feet - Labs CBC & Chem 7: 10/05/23 06:44 10/07/23 08:48 Labs: Abnormal Lab Results - Last 24 Hours (Table) 10/06/23 10/07/23 Range/Units 05:33 08:48 Potassium 3.3 L (3.5-5.5) mmol/L Chloride 97 L (98-107) mmol/L Carbon Dioxide 35.2 H 38 H (21.6-31.8) mmol/L BUN 6.5 L (9.0-27.0) mg/dL Creatinine 0.4 L 0.40 L (0.6-1.5) mg/dL Calcium 7.8 L 8.0 L (8.7-10.3) mg/dL Microbiology - Last 24 Hours (Table) 10/01/23 13:00 Gram Stain - Final Pleural Fluid Body Fluid Culture - Final Brevibacterium species 10/04/23 12:54 Gram Stain - Final Sputum Sputum Culture - Final Assessment and Plan (1) Pneumonia Current Visit: Yes Status: Acute Code(s): J18.9 - PNEUMONIA, UNSPECIFIED ORGANISM SNOMED Code(s): 256699111 (2) Allergy to multiple antibiotics Current Visit: Yes Status: Acute Code(s): Z88.1 - ALLERGY STATUS TO OTHER ANTIBIOTIC AGENTS SNOMED Code(s): 063005890 (3) Lung abscess Current Visit: Yes Status: Acute Code(s): J85.2 - ABSCESS OF LUNG WITHOUT PNEUMONIA SNOMED Code(s): 65938205 Plan: 1patient presented to hospital with sepsis in this patient who did have a fever tachycardia hypoxemia elevated white count source is unlikely pneumonia with question of possible abscess/empyema in this patient with recent surgery we will need to cover for resistant gram-positive as well as gram-negative pathogen. 2patient with the penicillin and cephalosporin allergy that would limit the number of antibiotics safe to use. 3-patient is status post bronchoscopy lavage and also have placement of a pigtail catheter by IR , cultures are currently growing Brevibacterium species 4we will continue the patient on vancomycin pharmacy to dose however discontinue Azactam , PICC line order for outpatient IV antibiotic therapy Dictation was produced using [employer] dictation software. please excuse any grammatical, word or spelling errors. Time with Patient: Less than 30
--- NOTE | 2023-10-07 15:35 | IR ---
PICC LINE PLACEMENT: HISTORY: Infection requiring long-term antibiotic therapy PROCEDURE: Ultrasound and fluoroscopic guidance of PICC line placement. COMPLICATIONS: None ANESTHESIA: 1. 1% Lidocaine locally. FINDINGS/TECHNIQUE: The procedure was explained to the patient. The risks, complications, benefits and alternatives were discussed and any questions were answered. Informed consent was obtained. The patient was placed supine on the fluoroscopic table and prepped and draped in the usual sterile fash ion. Utilizing a 21 gauge needle and sonographic and fluoroscopic guidance, access in the left basi lic vein was achieved and there is placement of a 0.018 guidewire. The vein is patent. A 4-F sheath was placed over the guidewire. The guidewire and dilator were removed and a 4-F. PICC line was plac ed through the sheath with the tip at the level of the SVC. The sheath was removed, the catheter was flushed and sutured into position. The patient was stable throughout the procedure and remained sta ble upon discharge from the Department of Radiology. The vein puncture was patent under ultrasound. A alas scale image was obtained to document patency of the vein punctured. All elements of the maximal barrier technique were utilized. FLUOROSCOPY TIME: DAP 0.1156Gy cm2 IMPRESSION: Successful PICC line placement under ultrasound and fluoroscopic guidance.
[2023-10-08] MEDS: HYDROmorphone 0.5 MG/0.5 ML SYRINGE IVP PRN ×7 (03:10→23:10)
[2023-10-08] MEDS: PANTOPRAZOLE 40 MG TABLET PO SCH (05:57)
[2023-10-08] MEDS: HYDROcodone/APAP 5-325MG 1 EACH TAB PO PRN (06:05)
[2023-10-08] MEDS: VANCOMYCIN 1,250 MG in SODIUM CHLORIDE 0.9% 250 ML IVPB SCH ×2 (08:10→20:35)
[2023-10-08] MEDS: METOPROLOL TARTRATE 25 MG TAB PO SCH ×2 (08:10→20:35)
[2023-10-08] MEDS: guaiFENesin 600 MG TABLET.ER PO SCH ×2 (08:21→20:35)
--- NOTE | 2023-10-08 08:32 | P.PN ---
Subjective Progress Note Date: 10/07/23 Patient evaluated on medical floor. Pigtail catheter remains in place with 20 mls of output documented overnight. Patient continues with productive cough brown tinged sputum and repeat sputum culture has been sent and pending at this time. Chest xray today reveals cavitation vs. pneumothorax right apex. Small effusion may be present. Bronchial washings reveal inflammation, negative for diagnostic malignancy. Patient does have known NSCLC. Remains on IV aztreonam and IV vancomycin. Procalcitonin level 0.15. 10/06/2023 Patient evaluated sitting up in bed. No drainage noted from atrium overnight. Pigtail catheter remains n place. Chest xray today reveals stable appearance right lung with pneumothorax vs. cavitation apex. Small effusion may be present. Repeat sputum culture final showing normal hubert. The pleural fluid is finalized showing brevibacterium species. 10/07/2023 Patient is evaluated today sitting up in bed. Legs are swollen, patient has been receiving IV fluids which will be stopped. IV lasix x 1 will be given and recommending SCDs for this. Edema is non pitting. Patient had chest xray this AM showing possible loculated pneumothorax vs. cavitary process. Subpulmonic right basilar effusion. The left lung is clear. Pigtail catheter remains in place again minimal to no drainage overnight. CT following closely. Repeat sputum showing normal hubert. Remains on IV antibiotics. Patient remains on room air. Review of Systems Constitutional: Denied any fatigue denied any fever. Cardio vascular: denied any chest pain, palpitations Gastrointestinal: denied any nausea, vomiting, diarrhea Pulmonary: Reports shortness of breath and productive cough. Neurologic denied any new focal deficits All inpatient medications were reviewed and appropriate changes in these medications as dictated in the interval history and assessment and plan. PHYSICAL EXAMINATION: GENERAL: The patient is alert and oriented x3, not in any acute distress. Well developed, well nourished. HEENT: Pupils are round and equally reacting to light. EOMI. No scleral icterus. No conjunctival pallor. Normocephalic, atraumatic. No pharyngeal erythema. No thyromegaly. CARDIOVASCULAR: S1 and S2 present. No murmurs, rubs, or gallops. PULMONARY: Crackles in the right lung base. ABDOMEN: Soft, nontender, nondistended, normoactive bowel sounds. No palpable organomegaly. MUSCULOSKELETAL: No joint swelling or deformity. EXTREMITIES: No cyanosis, clubbing +1 peripheral edema/ankle edema non pitting. NEUROLOGICAL: Gross neurological examination did not reveal any focal deficits. SKIN: No rashes. Assessment Rule out Cavitary lung lesion/pulmonary abscess s/p pigtail catheter placement and lytic instillation Non-small cell lung cancer status post right upper lobectomy, done on 08/19/2023. Residual right apical loculated pneumothorax s/p lobectomy Peripheral edema likely due to continued hydration patient is eating drinking appropriately. Will stop IV fluids. Hypokalemia supplemented Normocytic anemia Chronic obstructive pulmonary disease Former smoker GI prophylaxiss Full Code Plan Continue antibiotics in the form of IV aztreonam and IV vancomycin. The bronchial washings are negative for malignancy and sputum showing gram positive. Repeat sputum culture showing normal hubert. Pigtail catheter remains in place, cardiothoracic services following closely. Possible removal of pigtail catheter tomorrow. Patient will have a Chest CT later today. IV lasix x 1 given for the peripheral edema and recommend for BENJAMÍN hose and to elevate lower extremities while sitting. Continue to encourage incentive spirometer 10 x an hour while awake. Increase activity level. Replace repeat labs in AM. Continue all other supportive care. The impression and plan of care has been dictated by Margo Stallings Nurse Practitioner as directed. Dr. Lavern MD I have performed a history and physical examination and medical decision making of this patient, discussed the same with the dictator, and agree with the dictators assessment and plan as written, documented as a scribe. Based on total visit time, I have performed more than 50% of this visit. Objective - Vital Signs Vital signs: Vital Signs Temp 98.1 F 10/08/23 02:33 Pulse 74 10/08/23 02:33 Resp 15 10/08/23 02:33 BP 118/68 10/08/23 02:33 Pulse Ox 96 10/08/23 02:33 FiO2 Intake & Output 10/07/23 10/07/23 10/08/23 06:59 18:59 06:59 Intake Total 480 Output Total 10 Balance -10 480 Weight 63.957 kg Intake: Oral 480 Output: Drainage 10 Right Upper Anterior 10 Chest Other: Voiding Method Bedside Commode # Voids 2 3 - Labs CBC & Chem 7: 10/05/23 06:44 10/07/23 08:48 Labs: Abnormal Lab Results - Last 24 Hours (Table) 10/07/23 Range/Units 08:48 Chloride 97 L (98-107) mmol/L Carbon Dioxide 38 H (22-30) mmol/L Creatinine 0.40 L (0.52-1.04) mg/dL Calcium 8.0 L (8.4-10.2) mg/dL Assessment and Plan Time with Patient: Less than 30
[2023-10-08 08:39] LABS: African American GFR (CKD) >90 (>60 ml/min/1.73 sqM); Anion Gap 3 mmol/L; Blood Urea Nitrogen 10 mg/dL (7-17); Carbon Dioxide 39 mmol/L (22-30); Chloride 96 mmol/L (98-107); Glucose 82 mg/dL (74-99); Non-African American GFR(CKD) >90 (>60 ml/min/1.73 sqM); Sodium 138 mmol/L (137-145)
[2023-10-08] MEDS: IPRATROPIUM-ALBUTEROL 3 ML NEB INHALATION SCH ×4 (08:40→21:05)
--- NOTE | 2023-10-08 09:15 | XR ---
EXAMINATION TYPE: XR chest 1V portable DATE OF EXAM: 10/08/2023 9:02 AM CLINICAL INDICATION:Female, 57 years old with history of pneumonia; [facility] COMPARISON: Chest radiographs from 10/07/2023. TECHNIQUE: XR chest 1V portable Frontal view of the chest. FINDINGS: Lungs/Pleura: Similar airspace opacities at the right lung with right apical lucency. The left lung r emains clear. There is no evidence of pleural effusion, focal consolidation, or pneumothorax. Pulmonary vascularity: Unremarkable. Heart/mediastinum: Cardiomediastinal silhouette is unremarkable. Musculoskeletal: No acute osseous pathology. Other findings: None Lines/Tubes: Right thoracotomy tube is present with right apical lucency which remains the same. IMPRESSION: Unchanged exam with right thoracotomy tube with right apical lucency.
--- NOTE | 2023-10-08 13:37 | P.PN ---
Subjective Progress Note Date: 10/08/23 Principal diagnosis: Pneumonia with possible lung abscess, small right pleural effusion, residual loculated small anterior upper lung pneumothorax, leukocytosis, normocytic normochromic anemia. History of non-small cell carcinoma with neuroendocrine differentiation, consistent with large cell neuroendocrine carcinoma status post robotic-assisted right upper lobectomy on 08/19/2023 and subsequent bronchoscopy with placement of right thoracostomy tube, chronic tobacco dependence with recent cessation, COPD, asthma, hyperlipidemia, GERD, diverticulitis status post bowel resection, osteoarthritis The patient was seen and examined sitting up in bed on the medical oncology unit in no acute distress. Still has frequent productive cough. Has remained afebrile, vitals stable, currently on 2 LPM NC with oxygen saturation in the high 90s. Able to achieve 1250 mL on incentive spirometer this morning. Has been ambulatory in the room. Sputum culture finalized as normal respiratory hubert, repeated by pulmonology which is also finalized as negative. Pleural fluid sent from pigtail insertion finalized growing Brevibacterium species, BAL specimen finalized as negative. Remains on Vanco per ID. Pigtail with very minimal drainage in the last 48 hours. CXR, repeat CT scan reviewed. Objective - Vital Signs Vital signs: Vital Signs Temp 98.4 F 10/08/23 08:00 Pulse 96 10/08/23 12:26 Resp 18 10/08/23 08:00 BP 119/74 10/08/23 08:00 Pulse Ox 95 10/08/23 08:40 FiO2 Intake & Output 10/07/23 10/08/23 10/08/23 18:59 06:59 18:59 Intake Total 480 Balance 480 Weight 63.957 kg Intake: Oral 480 Other: Voiding Method Bedside Commode # Voids 3 3 - Exam CONSTITUTIONAL: Appears comfortable, cooperative, no acute distress RESPIRATORY: Lungs sounds clear. Respirations even, nonlabored. Currently on 2 LPM NC with oxygen saturation 95%. Able to achieve 1250 mL on incentive spirometry. Strong productive cough. CARDIOVASCULAR: S1, S2 present. Regular rate and rhythm, sinus rhythm on telemetry. Palpable peripheral pulses bilaterally. No edema present. No calf pain or tenderness noted GASTROINTESTINAL: Abdomen soft, nontender, nondistended. Active bowel sounds present 4 quadrants. Tolerating minimal diet. Positive bowel movement GENITOURINARY: Continues to void INTEGUMENTARY: Skin is warm and dry. Thoracic incisions well healed NEUROLOGIC: Cranial nerves II through XII intact MUSKULOSKELETAL: Able to move all extremities, strength equal bilaterally, gait normal PSYCHIATRIC: Alert and oriented to person place and time, appropriate affect, intact judgment and insight INVASIVE TUBES: Right [facility]ided [facility], minimal drainage in the last 48 hours - Allied health notes Allied health notes reviewed: nursing - Labs CBC & Chem 7: 10/05/23 06:44 10/08/23 06:43 Labs: Abnormal Lab Results - Last 24 Hours (Table) 10/08/23 Range/Units 06:43 Chloride 96 L (98-107) mmol/L Carbon Dioxide 39 H (22-30) mmol/L Creatinine 0.43 L (0.52-1.04) mg/dL Calcium 8.0 L (8.4-10.2) mg/dL - Imaging and Cardiology Chest x-ray: report reviewed, image reviewed Assessment and Plan Assessment: Pneumonia with possible lung abscess, status post bronchoscopy and right sided pigtail catheter placement Small right pleural effusion, residual loculated small anterior upper lung pneumothorax Leukocytosis, secondary to above Normocytic normochromic anemia Non-small cell carcinoma with neuroendocrine differentiation, consistent with large cell neuroendocrine carcinoma status post robotic-assisted right upper lobectomy on 08/19/2023 and subsequent bronchoscopy with placement of right thoracostomy tube Chronic tobacco dependence with recent cessation COPD, FEV1 87%, DLCO 55% Asthma Hyperlipidemia GERD Diverticulitis status post bowel resection Osteoarthritis Plan: Per Dr. Espino will plan for thoracotomy with right middle lobectomy on October 13. This was discussed with the patient, her , and her daughter Continue IV antibiotics per infectious disease Will monitor daily labs, CXR Wean oxygen as tolerated, encourage use of incentive spirometry 10 times every hour while awake Increase activity as tolerated, out of bed for all meals Pain control per current medication regimen Reinforced continued smoking cessation Bronchodilator per cardiology clinical consultant Medical management of other comorbidities per internal medicine, pulmonology, ID More recommendations to follow based on patient's clinical course
--- NOTE | 2023-10-08 13:44 | P.PN ---
Subjective Progress Note Date: 10/08/23 I am seeing this patient in consultation today 09/30/2023 for suspected pulmonary abscess. Patient is a 57-year-old white female with past medical history significant for right upper lobe non-small cell lung carcinoma status post robotic-assisted VATS involving a right upper lobectomy on August 19. She did have a complicated postoperative hospital stay with a persistent right sided pneumothorax and opacification of the right midlung area. She has been closely followed up on an outpatient basis. She does follow Dr. Davey in the pulmonary office, and also had a office visit with Dr. Espino from cardiothoracic surgery on 09/17. She states that she has "not really been 100%" since surgery. More recently she has had symptoms of exertional shortness of breath, right-sided back pain, productive cough with yellow/green sputum sometimes pink tinged, and subjective fevers. She has received courses of Levaquin and doxycycline outpatient. A CT of the chest done 2 days ago demonstrated focal severe consolidation of the right upper lobe measuring 7.7 cm with what appears to be a fluid density concerning for pulmonary abscess. There is an adjacent residual loculated small anterior upper lung pneumothorax measuring 4.5 cm. There is a possible secondary pulmonary abscess or cavitary necrosis with air-fluid level anterior right mid lung measuring 9.2 x 8.2 x 7.4 cm. For this reason, she was directed to the emergency room yesterday. Patient was given doses of Levaquin and vancomycin in the emergency room. She does have a penicillin ALLERGY. Bronchoscopy with BAL done on 08/23/2023 did not identify significant bacterial growth. CBC shows a WBC count of 16, hemoglobin 9.6, hematocrit 30.4, platelets 694. BMP on arrival shows sodium 133, potassium 3.2, chloride 83, serum bicarbonate 34, BUN 12, creatinine 0.5, glucose 112. Normal saline infusing at 130 ML's per hour. Lactic acid level I.9. Patient is currently lying in bed, on 2 L/m nasal cannula, in no acute distress. SPO2 97%. She is slightly tachycardic with a heart rate of 116 bpm. She was febrile with a T-max of 100F. Blood cultures pending. Hemodynamically stable. Patient was seen and examined today on 10/01/23, seems to be doing about the same, continues to have cough and shortness of breath. Cough is productive with thick yellow phlegm. Underwent a bronchoscopy today , please refer to the full operative report. Patient was found to have significant area and secretions coming out of the right middle lobe, mucosa in the right middle lobe was noted to be thick [place] edematous, and has quite a bit of abnormal appearance, multiple biopsies from the right lobe bronchus were done, and lavage of the right middle lobe/medial segment was also performed. In the meantime the patient remains on antibiotics, and these will likely be adjusted based on the final culture from the BAL. Patient continues to have leukocytosis with WBC count of 17.9 hemoglobin 8.9, basic metabolic profile is normal Reevaluated today on 10/02/23, patient was seen by interventional radiology yesterday, and she underwent placement of a pigtail catheter into her right lung. Significant purulent drainage is noted into the pleural VAC, chest x-ray is showing improvement, clinically the patient is feeling better, remains on antibiotics, cultures are pending however the Gram stain is showing gram- positive cocci and that is from the pleural effusion fluid. BAL Gram stain is showing moderate PMNs and mixed organisms including gram-negative bacilli and gram-positive cocci. Patient is tolerating antibiotics well, and apparently she had one of placed treatment into the lung. Abscess. Patient refusing to have any more. WBC count is down today to 6.2 from 17.9 hemoglobin is 7.9, basic metabolic profile is normal. Renal profile is normal patient remains in the meantime on vancomycin and on aztreonam. The patient is seen today 10/03/2023 in follow-up on the regular medical floor. She is currently sitting up in a chair at the bedside. Awake and alert in no acute distress. Breathing quite a bit better. Maintaining good O2 saturations in the 90s on room air. She's been afebrile. Hemodynamically stable. Chest x- ray shows improvement in the right-sided empyema. Chest tube remains in place to wall suction. There was another 300 ML's of purulent drainage in the past 24 hours. She did receive alteplase/dornase earlier this morning per CT services. Pleural fluid cultures revealing no growth thus far. Bronchial wash cultures revealing no growth thus far. Sputum culture revealed no growth. White count 5.5. Hemoglobin 7.4. Sodium 136. Potassium 3.4. Bicarb 33. BUN 5. Creatinine 0.52. Glucose 91. She remains on aztreonam and vancomycin. The patient is seen today 10/04/2023 in follow-up on the regular medical floor. She is awake and alert in no acute distress. Sitting up in bed. Maintaining good O2 saturations in the 90s on 4 L/m per nasal cannula. She did undergo bronchoscopy with BAL and biopsies on 10/01/2023. Cytology pending. Pleural fluid cultures are showing gram-positive bacilli. White count 9.2. Hemoglobin 8.1. Platelets 536. Sodium 137. Potassium 3.1. Bicarb 35. BUN 4. Creatinine 0.43. She is continued on aztreonam and vancomycin. Remains on bronchodilators. She does have a productive cough of dark brown colored sputum. Another sputum culture will be sent. Chest x-ray continues to show a small right apical pneumothorax which is increased from prior. There is haziness to the right lung which is unchanged. Pulling about 750 MLS on her incentive spirometer. Right-sided pigtail catheter remains in place to continuous wall suction with approximately 170 ML's of purulent drainage in the past 24 hours. The patient is seen today 10/05/2023 in follow-up on the regular medical floor. She is currently resting in bed. Awake and alert in no acute distress. Feeling a bit better today compared to yesterday. Less cough and congestion. Chest x- ray continues to show a small right apical pneumothorax. Continued haziness to the right lung, pigtail catheter remains in place. Remains to suction. No leak noted. Continued on aztreonam and vancomycin. Pleural fluid culture was positive for gram positive bacilli. Sputum culture pending. Bronchial wash cultures revealed no growth. White count 6.6. Hemoglobin 7.8. Platelets 531. Sodium 138. Potassium 2.4. Bicarb 36. BUN 6. Creatinine 0.39. AST 18. ALT 16. Alk phos 117. Pro-calcitonin 0.15. She continues working well with the incentive spirometer. Continued on bronchodilators. The patient is seen today 10/06/2023 in follow-up on the regular medical floor. She is currently sitting up at the bedside. Maintaining good O2 saturations in the upper 90s on 2 L/m per nasal cannula. Awake and alert in no acute distress. Continues to feel a bit better each day. Still not quite back to her baseline. Chest x-ray reveals stable appearance of the right lung with pneumothorax versus cavitation apex. Small effusion. Pigtail catheter remains in place. Continues to suction. No leak noted. Pleural fluid cultures revealing brevibacterium species. Sodium 144. Potassium 3.3. Bicarb 35. BUN 6. Creatinine 0.4. Glucose 92. She is continued on vancomycin and aztreonam. Continued on bronchodilators. Continued on Mucinex. The patient is seen today 10/07/2023 in follow-up on the regular medical floor. She is awake and alert in no acute distress. Feeling a bit better today compared to yesterday. Maintaining good O2 saturations in the 90s on 2 L per nasal cannula. Normal saline at 20 ML's per hour. Chest x-ray reveals right apical lucency persists which may reflect loculated pneumothorax versus cavitary process. Right midlung field pigtail catheter remains in place overlying the stable opacity. Subpulmonic right basilar effusion. Left lung is clear. Computed tomography scan of the chest revealed residual lung abscess with significant fluid content remaining. There is thickening of the right pectoralis major musculature with some air and possibly fluid within and may relate to developing infection. Pigtail catheter appears to traverse through the chest wall along the inferior margin of this potential collection. Bilateral pleural effusions as mentioned. Hemoglobin 39. Potassium 3.5. Bicarb 30. BUN 9. Creatinine 0.40. She is continued on vancomycin. Completed aztreonam. The patient is seen today 10/08/2023 in follow-up on the regular medical floor. She is sitting up at the bedside. Awake and alert in no acute distress. Denies any worsening shortness of breath, cough or congestion. He is maintaining good O2 saturations in the 90s on 2 L/m per nasal cannula. She is being treated per Brevibacterium found in her pleural fluid. A PICC line was placed yesterday. She is continued on vancomycin. Completed Azactam. Awaiting interventional radiology to discontinue her pigtail catheter. Sodium 138. Potassium 4.0. Bicarb 39. BUN 10. Creatinine 0.43. Glucose 82. Follow-up chest x-ray is unchanged with right thoracotomy tube in place in right apical lucency. She is being followed by CT services and she may require right middle lobectomy. Objective - Vital Signs Vital signs: Vital Signs Temp 98.4 F 10/08/23 08:00 Pulse 96 10/08/23 12:26 Resp 18 10/08/23 08:00 BP 119/74 10/08/23 08:00 Pulse Ox 95 10/08/23 08:40 FiO2 Intake & Output 10/07/23 10/08/23 10/08/23 18:59 06:59 18:59 Intake Total 480 Balance 480 Weight 63.957 kg Intake: Oral 480 Other: Voiding Method Bedside Commode # Voids 3 3 - Exam GENERAL EXAM: Alert, pleasant, 57-year-old female, on 2 L nasal cannula, in no apparent distress. HEAD: Normocephalic. EYES: Normal reaction of pupils, equal size. NOSE: Clear with pink turbinates. THROAT: No erythema or exudates. NECK: No masses, no JVD. CHEST: No chest wall deformity. Right-sided pigtail catheter in place to wall suction. LUNGS: Equal air entry with crackles in the right lung base. CVS: S1 and S2 normal with no audible murmur, regular rhythm. ABDOMEN: No hepatosplenomegaly, normal bowel sounds, no guarding or rigidity. SPINE: No scoliosis or deformity SKIN: No rashes CENTRAL NERVOUS SYSTEM: No focal deficits, tone is normal in all 4 extremities. EXTREMITIES: There is no peripheral edema. No clubbing, no cyanosis. Peripheral pulses are intact. - Labs CBC & Chem 7: 10/05/23 06:44 10/08/23 06:43 Labs: Abnormal Lab Results - Last 24 Hours (Table) 10/08/23 Range/Units 06:43 Chloride 96 L (98-107) mmol/L Carbon Dioxide 39 H (22-30) mmol/L Creatinine 0.43 L (0.52-1.04) mg/dL Calcium 8.0 L (8.4-10.2) mg/dL Assessment and Plan Assessment: Non-small cell lung cancer status post right upper lobectomy, done on 08/19/2023. Two regional hilar lymph nodes were positive for metastasis. No other lymph nodes involved. Post-operative hospital stay was complicated by persistent residual right apical pneumothorax. During this hospitalization, she did have a follow-up bronchoscopy with BAL done on 08/31/2023, which did not isolate any bacterial organisims. Right pleural fluid culture is showing brevibacterium species Likely secondary lung abscess, A CT of the chest 09/28/2023 demonstrated focal severe consolidation of the right upper lobe measuring 7.7 cm with what appears to be a fluid density concerning for pulmonary abscess. There is an adjacent residual loculated small anterior upper lung pneumothorax measuring 4.5 cm. There is a possible second pulmonary abscess or cavitary necrosis with air-fluid level anterior right mid lung measuring 9.2 x 8.2 x 7.4 cm. status post bronchoscopy and status post pigtail catheter placement into the lung abscess. Pleural fluid culture positive for gram positive bacilli/brevibacterium species. Remains on vancomycin and completed aztreonam. Follow-up computed tomography scan today 10/07/2023 continues to show a residual lung abscess measuring approximate 6.0 x 5.0 cm, previously 8.2 x 7.4 cm's. P mohamud is for a right middle lobectomy on 10/13/2026. Leukocytosis, improved Residual right apical loculated pneumothorax, as described above Hypokalemia, being replaced Normocytic normochromic anemia, without any obvious blood loss Chronic obstructive pulmonary disease, with a FEV1 53% of predicted, stable. Former tobacco dependence Plan: The patient was seen and evaluated Chest x-ray, labs and medications reviewed Remains on vancomycin Continued on bronchodilators CT service is following closely Pigtail catheter remains in place May need right middle lobectomy We will continue to follow This patient was seen independently by the nurse practitioner I have personally seen and examined the patient, performed the documentation and the assessment and plan as written. Number of minutes spent on the visit: 22.
--- NOTE | 2023-10-08 15:30 | P.PN ---
Subjective Progress Note Date: 10/08/23 Principal diagnosis: Reason for follow-up is pneumonia/lung abscess Patient is a 57-year-old female with a past medical history significant for COPD hypertension lipidemia osteomyelitis with a recent diagnosis of right upper lobe lung cancer pathology non-small cell with neuroendocrine differentiation the patient is status post robotic assisted right upper lobectomy on 08/19/2023, now presented to hospital with persistent cough shortness of breath did have a low-grade fever abnormal CT suspicious for possible pneumonia/lung abscess, the patient is status post bronchoscopy by pulmonary and patient also have a pigtail catheter placed in by IR On today's evaluation that is the patient remains to be afebrile, the patient is breathing comfortably on room air and no need for oxygen. The patient denies shortness of breath and right-sided chest pain has improved and did have occasional cough, patient denies nausea/vomiting or diarrhea and no abdominal pain Patient white count is 6.69 as of 10/05/2023, creatinine 0.43, her fluid culture growing Brevibacterium species Objective - Vital Signs Vital signs: Vital Signs Temp 98.4 F 10/08/23 08:00 Pulse 96 10/08/23 12:26 Resp 18 10/08/23 08:00 BP 119/74 10/08/23 08:00 Pulse Ox 95 10/08/23 08:40 FiO2 Intake & Output 10/07/23 10/08/23 10/08/23 18:59 06:59 18:59 Intake Total 480 Balance 480 Weight 63.957 kg Intake: Oral 480 Other: Voiding Method Bedside Commode # Voids 3 3 - Exam GENERAL DESCRIPTION: A middle-age female up in bed in no distress RESPIRATORY SYSTEM: Unlabored breathing , decreased breath sounds at the base HEART: S1 S2 regular rate and rhythm , ABDOMEN: Soft , no tenderness EXTREMITIES: No edema feet - Labs CBC & Chem 7: 10/05/23 06:44 10/08/23 06:43 Labs: Abnormal Lab Results - Last 24 Hours (Table) 10/08/23 Range/Units 06:43 Chloride 96 L (98-107) mmol/L Carbon Dioxide 39 H (22-30) mmol/L Creatinine 0.43 L (0.52-1.04) mg/dL Calcium 8.0 L (8.4-10.2) mg/dL Assessment and Plan (1) Pneumonia Current Visit: Yes Status: Acute Code(s): J18.9 - PNEUMONIA, UNSPECIFIED ORGANISM SNOMED Code(s): 290774697 (2) Allergy to multiple antibiotics Current Visit: Yes Status: Acute Code(s): Z88.1 - ALLERGY STATUS TO OTHER ANTIBIOTIC AGENTS SNOMED Code(s): 288306982 (3) Lung abscess Current Visit: Yes Status: Acute Code(s): J85.2 - ABSCESS OF LUNG WITHOUT PNEUMONIA SNOMED Code(s): 68015575 Plan: 1patient presented to hospital with sepsis in this patient who did have a fever tachycardia hypoxemia elevated white count source is unlikely pneumonia with question of possible abscess/empyema in this patient with recent surgery we will need to cover for resistant gram-positive as well as gram-negative pathogen. 2patient with the penicillin and cephalosporin allergy that would limit the number of antibiotics safe to use. 3-patient is status post bronchoscopy lavage and also have placement of a pigtail catheter by IR , cultures are currently growing Brevibacterium species 4we will continue the patient on vancomycin pharmacy to dose plan is for possible thoracotomy and right middle lobectomy by CT surgery on 10/13/2023 Dictation was produced using [employer] dictation software. please excuse any grammatical, word or spelling errors. Time with Patient: Less than 30
[2023-10-08] MEDS ORDERED: FUROSEMIDE 10 MG/ML 2 ML VIAL IV ONE (16:11)
--- NOTE | 2023-10-08 16:12 | P.PN ---
Subjective Progress Note Date: 10/08/23 Patient evaluated on medical floor. Pigtail catheter remains in place with 20 mls of output documented overnight. Patient continues with productive cough brown tinged sputum and repeat sputum culture has been sent and pending at this time. Chest xray today reveals cavitation vs. pneumothorax right apex. Small effusion may be present. Bronchial washings reveal inflammation, negative for diagnostic malignancy. Patient does have known NSCLC. Remains on IV aztreonam and IV vancomycin. Procalcitonin level 0.15. 10/06/2023 Patient evaluated sitting up in bed. No drainage noted from [facility] overnight. Pigtail catheter remains n place. Chest xray today reveals stable appearance right lung with pneumothorax vs. cavitation apex. Small effusion may be present. Repeat sputum culture final showing normal hubert. The pleural fluid is finalized showing brevibacterium species. 10/07/2023 Patient is evaluated today sitting up in bed. Legs are swollen, patient has been receiving IV fluids which will be stopped. IV lasix x 1 will be given and recommending SCDs for this. Edema is non pitting. Patient had chest xray this AM showing possible loculated pneumothorax vs. cavitary process. Subpulmonic right basilar effusion. The left lung is clear. Pigtail catheter remains in place again minimal to no drainage overnight. CT following closely. Repeat sputum showing normal hubert. Remains on IV antibiotics. Patient remains on room air. 10/08/[address] yesterday showing residual lung abscess with significant fluid content remaining. Thickening of the right pectoralis major muscle with some air and possibly fluid within and may relate to developing infection in this location. Pigtail catheter remains in place. Bilateral pleural effusions. Small left and moderate right pleural effusion. Sodium 139, renal function stable. Review of Systems Constitutional: Denied any fatigue denied any fever. Cardio vascular: denied any chest pain, palpitations Gastrointestinal: denied any nausea, vomiting, diarrhea Pulmonary: Reports shortness of breath and productive cough. Neurologic denied any new focal deficits All inpatient medications were reviewed and appropriate changes in these medic ations as dictated in the interval history and assessment and plan. PHYSICAL EXAMINATION: GENERAL: The patient is alert and oriented x3, not in any acute distress. Well developed, well nourished. HEENT: Pupils are round and equally reacting to light. EOMI. No scleral icterus. No conjunctival pallor. Normocephalic, atraumatic. No pharyngeal erythema. No thyromegaly. CARDIOVASCULAR: S1 and S2 present. No murmurs, rubs, or gallops. PULMONARY: Crackles in the right lung base. ABDOMEN: Soft, nontender, nondistended, normoactive bowel sounds. No palpable organomegaly. MUSCULOSKELETAL: No joint swelling or deformity. EXTREMITIES: No cyanosis, clubbing +1 peripheral edema/ankle edema non pitting. NEUROLOGICAL: Gross neurological examination did not reveal any focal deficits. SKIN: No rashes. Assessment Rule out Cavitary lung lesion/pulmonary abscess s/p pigtail catheter placement and lytic instillation Non-small cell lung cancer status post right upper lobectomy, done on 08/19/2023 . Residual right apical loculated pneumothorax s/p lobectomy Peripheral edema likely due to continued hydration patient is eating drinking appropriately. Will stop IV fluids. Hypokalemia supplemented Normocytic anemia Chronic obstructive pulmonary disease Former smoker GI prophylaxiss Full Code Plan Continue antibiotics in the form of IV aztreonam and IV vancomycin. The bronchial washings are negative for malignancy and sputum showing gram positive. Repeat sputum culture showing normal hubert. Pigtail catheter remains in place, cardiothoracic services following closely. Plan is for patient to have redo thoracotomy and lobectomy on Wednesday. IV lasix x 1 given for the peripheral edema and recommend for BENJAMÍN hose and to elevate lower extremities while sitting. Continue to encourage incentive spirometer 10 x an hour while awake. Increase activity level. Replace repeat labs in AM. Continue all other supportive care. The impression and plan of care has been dictated by Margo Stallings, Nurse Practitioner as directed. Dr. Lavern MD I have performed a history and physical examination and medical decision making of this patient, discussed the same with the dictator, and agree with the dictators assessment and plan as written, documented as a scribe. Based on total visit time, I have performed more than 50% of this visit. Objective - Vital Signs Vital signs: Vital Signs Temp 98.1 F 10/08/23 02:33 Pulse 74 10/08/23 02:33 Resp 15 10/08/23 02:33 BP 118/68 10/08/23 02:33 Pulse Ox 96 10/08/23 02:33 FiO2 Intake & Output 10/07/23 10/08/23 10/08/23 18:59 06:59 18:59 Intake Total 480 Balance 480 Weight 63.957 kg Intake: Oral 480 Other: Voiding Method Bedside Commode # Voids 3 3 - Labs CBC & Chem 7: 10/05/23 06:44 10/08/23 06:43 Labs: Abnormal Lab Results - Last 24 Hours (Table) 10/07/23 Range/Units 08:48 Chloride 97 L (98-107) mmol/L Carbon Dioxide 38 H (22-30) mmol/L Creatinine 0.40 L (0.52-1.04) mg/dL Calcium 8.0 L (8.4-10.2) mg/dL Assessment and Plan Time with Patient: Less than 30
[2023-10-09] MEDS: HYDROmorphone 0.5 MG/0.5 ML SYRINGE IVP PRN ×8 (02:21→22:53)
[2023-10-09] MEDS: PANTOPRAZOLE 40 MG TABLET PO SCH (05:47)
[2023-10-09] MEDS: VANCOMYCIN 1,250 MG in SODIUM CHLORIDE 0.9% 250 ML IVPB SCH ×2 (07:59→19:50)
[2023-10-09] MEDS: METOPROLOL TARTRATE 25 MG TAB PO SCH ×2 (07:59→19:50)
[2023-10-09] MEDS: guaiFENesin 600 MG TABLET.ER PO SCH ×2 (07:59→19:50)
--- NOTE | 2023-10-09 08:09 | XR ---
EXAMINATION TYPE: XR chest 1V portable DATE OF EXAM: 10/09/2023 COMPARISON: 10/08/2023 INDICATION: Post lobectomy TECHNIQUE: Single frontal view of the chest is obtained. FINDINGS: The heart size is normal. The pulmonary vasculature is normal. There is opacity in the right perihilar region extending towards the right apex. Right apical pneumot horax or cavitation is stable. Catheters present on the right is stable in position IMPRESSION: 1. Stable appearance post lobectomy, continued follow-up is recommended
[2023-10-09] MEDS: IPRATROPIUM-ALBUTEROL 3 ML NEB INHALATION SCH ×4 (08:35→18:27)
--- NOTE | 2023-10-09 09:26 | P.PN ---
Subjective Progress Note Date: 10/09/23 Principal diagnosis: Pneumonia with possible lung abscess, small right pleural effusion, residual loculated small anterior upper lung pneumothorax, leukocytosis, normocytic normochromic anemia. History of non-small cell carcinoma with neuroendocrine differentiation, consistent with large cell neuroendocrine carcinoma status post robotic-assisted right upper lobectomy on 08/19/2023 and subsequent bronchoscopy with placement of right thoracostomy tube, chronic tobacco dependence with recent cessation, COPD, asthma, hyperlipidemia, GERD, diverticulitis status post bowel resection, osteoarthritis The patient was seen and examined sitting up in bed on the medical oncology unit in no acute distress. Still has frequent productive cough. Has remained afebrile, vitals stable, currently on 2 LPM NC with oxygen saturation in the high 90s. Able to achieve 0402-0747 mL on incentive spirometer. Has been ambulatory in the room. Sputum culture finalized as normal respiratory hubert, repeated by pulmonology which is also finalized as negative. Pleural fluid sent from pigtail insertion finalized growing Brevibacterium species, BAL specimen growing Brunilda. Remains on Vanco per ID. Pigtail with very minimal drainage in the last 48 hours. CXR reviewed. Patient requesting a shower, she may shower as long as pigtail catheter site is completely covered as well as PICC line site covered, she was instructed to avoid letting the shower spray or near her pigtail insertion site. Dr. Espino discussed with the patient yesterday the need for right middle lobectomy through a thoracotomy approach, this will be completed on Wednesday, patient is agreeable. Objective - Vital Signs Vital signs: Vital Signs Temp 98.5 F 10/09/23 07:47 Pulse 96 10/09/23 08:48 Resp 18 10/09/23 07:47 BP 127/72 10/09/23 07:47 Pulse Ox 98 10/09/23 07:47 FiO2 Intake & Output 10/08/23 10/09/23 10/09/23 18:59 06:59 18:59 Intake Total 118 Output Total 20 Balance 118 -20 Intake: Oral 118 Output: Drainage 20 Right Upper Anterior 20 Chest Other: Voiding Method Bedside Commode # Voids 3 0 # Bowel Movements 1 - Exam CONSTITUTIONAL: Appears comfortable, cooperative, no acute distress RESPIRATORY: Lungs sounds clear. Respirations even, nonlabored. Currently on 2 LPM NC with oxygen saturation 95%. Able to achieve 5510-5118 mL on incentive spirometry. Strong productive cough. CARDIOVASCULAR: S1, S2 present. Regular rate and rhythm, sinus rhythm on telemetry. Palpable peripheral pulses bilaterally. No edema present. No calf pain or tenderness noted GASTROINTESTINAL: Abdomen soft, nontender, nondistended. Active bowel sounds present 4 quadrants. Tolerating minimal diet. Positive bowel movement GENITOURINARY: Continues to void INTEGUMENTARY: Skin is warm and dry. Thoracic incisions well healed NEUROLOGIC: Cranial nerves II through XII intact MUSKULOSKELETAL: Able to move all extremities, strength equal bilaterally, gait normal PSYCHIATRIC: Alert and oriented to person place and time, appropriate affect, intact judgment and insight INVASIVE TUBES: Right sided pigtail catheter present to [facility], minimal drainage in the last 72 hours - Allied health notes Allied health notes reviewed: nursing - Labs CBC & Chem 7: 10/05/23 06:44 10/08/23 06:43 Labs: Microbiology - Last 24 Hours (Table) 10/01/23 08:40 Fungal Culture - Preliminary Bronchoalviolar Lavage - Right Brunilda albicans - Imaging and Cardiology Chest x-ray: report reviewed, image reviewed Assessment and Plan Assessment: Pneumonia with possible lung abscess, status post bronchoscopy and right sided pigtail catheter placement Small right pleural effusion, residual loculated small anterior upper lung pneumothorax Leukocytosis, secondary to above Normocytic normochromic anemia Non-small cell carcinoma with neuroendocrine differentiation, consistent with large cell neuroendocrine carcinoma status post robotic-assisted right upper lobectomy on 08/19/2023 and subsequent bronchoscopy with placement of right thoracostomy tube Chronic tobacco dependence with recent cessation COPD, FEV1 87%, DLCO 55% Asthma Hyperlipidemia GERD Diverticulitis status post bowel resection Osteoarthritis Plan: Dr. Espino will plan for thoracotomy with right middle lobectomy on October 13. This was discussed with the patient, her , and her daughter Continue IV antibiotics per infectious disease Will monitor daily labs, CXR Wean oxygen as tolerated, encourage use of incentive spirometry 10 times every hour while awake Increase activity as tolerated, out of bed for all meals, Patient may shower with pigtail and PICC covered Pain control per current medication regimen Reinforced continued smoking cessation Bronchodilator per service unit operator oil well Medical management of other comorbidities per internal medicine, pulmonology, ID More recommendations to follow based on patient's clinical course
[2023-10-09 09:34] LABS: HCT 24.8 % (37.2-46.3); HGB 7.3 g/dL (12.0-15.0); MCH 26.3 pg (27.0-32.0); MCHC 29.4 g/dL (32.0-37.0); MCV 89.2 FL (80.0-97.0); Mean Platelet Volume 8.3 FL (9.5-12.2); NRBC Per 100 WBC 0 X 10*3/uL (0.00-0.01); Platelet Count 367 X 10*3/uL (140-440); RBC 2.78 X 10*6/uL (4.10-5.20); RDW 16.8 % (11.5-14.5); WBC 7.09 X 10*3/uL (4.50-10.00)
[2023-10-09 10:39] LABS: Blood Urea Nitrogen 6.8 mg/dL (9.0-27.0); Calcium 8.1 mg/dL (8.7-10.3); Carbon Dioxide 36.6 mmol/L (21.6-31.8); Chloride 99 mmol/L (96-109); Glucose 88 mg/dL (70-110); Potassium 4.5 mmol/L (3.5-5.5); Sodium 144 mmol/L (135-145)
--- NOTE | 2023-10-09 11:12 | P.PN ---
Subjective Progress Note Date: 10/09/23 I am seeing this patient in consultation today 09/30/2023 for suspected pulmonary abscess. Patient is a 57-year-old white female with past medical history significant for right upper lobe non-small cell lung carcinoma status post robotic-assisted VATS involving a right upper lobectomy on August 19. She did have a complicated postoperative hospital stay with a persistent right sided pneumothorax and opacification of the right midlung area. She has been closely followed up on an outpatient basis. She does follow Dr. Davey in the pulmonary office, and also had a office visit with Dr. Espino from cardiothoracic surgery on 09/17. She states that she has "not really been 100%" since surgery. More recently she has had symptoms of exertional shortness of breath, right-sided back pain, productive cough with yellow/green sputum sometimes pink tinged, and subjective fevers. She has received courses of Levaquin and doxycycline outpatient. A CT of the chest done 2 days ago demonstrated focal severe consolidation of the right upper lobe measuring 7.7 cm with what appears to be a fluid density concerning for pulmonary abscess. There is an adjacent residual loculated small anterior upper lung pneumothorax measuring 4.5 cm. There is a possible secondary pulmonary abscess or cavitary necrosis with air-fluid level anterior right mid lung measuring 9.2 x 8.2 x 7.4 cm. For this reason, she was directed to the emergency room yesterday. Patient was given doses of Levaquin and vancomycin in the emergency room. She does have a penicillin ALLERGY. Bronchoscopy with BAL done on 08/23/2023 did not identify significant bacterial growth. CBC shows a WBC count of 16, hemoglobin 9.6, hematocrit 30.4, platelets 694. BMP on arrival shows sodium 133, potassium 3.2, chloride 83, serum bicarbonate 34, BUN 12, creatinine 0.5, glucose 112. Normal saline infusing at 130 ML's per hour. Lactic acid level I.9. Patient is currently lying in bed, on 2 L/m nasal cannula, in no acute distress. SPO2 97%. She is slightly tachycardic with a heart rate of 116 bpm. She was febrile with a T-max of 100F. Blood cultures pending. Hemodynamically stable. Patient was seen and examined today on 10/01/23, seems to be doing about the same, continues to have cough and shortness of breath. Cough is productive with thick yellow phlegm. Underwent a bronchoscopy today , please refer to the full operative report. Patient was found to have significant area and secretions coming out of the right middle lobe, mucosa in the right middle lobe was noted to be thick [place] edematous, and has quite a bit of abnormal appearance, multiple biopsies from the right lobe bronchus were done, and lavage of the right middle lobe/medial segment was also performed. In the meantime the patient remains on antibiotics, and these will likely be adjusted based on the final culture from the BAL. Patient continues to have leukocytosis with WBC count of 17.9 hemoglobin 8.9, basic metabolic profile is normal Reevaluated today on 10/02/23, patient was seen by interventional radiology yesterday, and she underwent placement of a pigtail catheter into her right lung. Significant purulent drainage is noted into the pleural VAC, chest x-ray is showing improvement, clinically the patient is feeling better, remains on antibiotics, cultures are pending however the Gram stain is showing gram- positive cocci and that is from the pleural effusion fluid. BAL Gram stain is showing moderate PMNs and mixed organisms including gram-negative bacilli and gram-positive cocci. Patient is tolerating antibiotics well, and apparently she had one of placed treatment into the lung. Abscess. Patient refusing to have any more. WBC count is down today to 6.2 from 17.9 hemoglobin is 7.9, basic metabolic profile is normal. Renal profile is normal patient remains in the meantime on vancomycin and on aztreonam. The patient is seen today 10/03/2023 in follow-up on the regular medical floor. She is currently sitting up in a chair at the bedside. Awake and alert in no acute distress. Breathing quite a bit better. Maintaining good O2 saturations in the 90s on room air. She's been afebrile. Hemodynamically stable. Chest x- ray shows improvement in the right-sided empyema. Chest tube remains in place to wall suction. There was another 300 ML's of purulent drainage in the past 24 hours. She did receive alteplase/dornase earlier this morning per CT services. Pleural fluid cultures revealing no growth thus far. Bronchial wash cultures revealing no growth thus far. Sputum culture revealed no growth. White count 5.5. Hemoglobin 7.4. Sodium 136. Potassium 3.4. Bicarb 33. BUN 5. Creatinine 0.52. Glucose 91. She remains on aztreonam and vancomycin. The patient is seen today 10/04/2023 in follow-up on the regular medical floor. She is awake and alert in no acute distress. Sitting up in bed. Maintaining good O2 saturations in the 90s on 4 L/m per nasal cannula. She did undergo bronchoscopy with BAL and biopsies on 10/01/2023. Cytology pending. Pleural fluid cultures are showing gram-positive bacilli. White count 9.2. Hemoglobin 8.1. Platelets 536. Sodium 137. Potassium 3.1. Bicarb 35. BUN 4. Creatinine 0.43. She is continued on aztreonam and vancomycin. Remains on bronchodilators. She does have a productive cough of dark brown colored sputum. Another sputum culture will be sent. Chest x-ray continues to show a small right apical pneumothorax which is increased from prior. There is haziness to the right lung which is unchanged. Pulling about 750 MLS on her incentive spirometer. Right-sided pigtail catheter remains in place to continuous wall suction with approximately 170 ML's of purulent drainage in the past 24 hours. The patient is seen today 10/05/2023 in follow-up on the regular medical floor. She is currently resting in bed. Awake and alert in no acute distress. Feeling a bit better today compared to yesterday. Less cough and congestion. Chest x- ray continues to show a small right apical pneumothorax. Continued haziness to the right lung, pigtail catheter remains in place. Remains to suction. No leak noted. Continued on aztreonam and vancomycin. Pleural fluid culture was positive for gram positive bacilli. Sputum culture pending. Bronchial wash cultures revealed no growth. White count 6.6. Hemoglobin 7.8. Platelets 531. Sodium 138. Potassium 2.4. Bicarb 36. BUN 6. Creatinine 0.39. AST 18. ALT 16. Alk phos 117. Pro-calcitonin 0.15. She continues working well with the incentive spirometer. Continued on bronchodilators. The patient is seen today 10/06/2023 in follow-up on the regular medical floor. She is currently sitting up at the bedside. Maintaining good O2 saturations in the upper 90s on 2 L/m per nasal cannula. Awake and alert in no acute distress. Continues to feel a bit better each day. Still not quite back to her baseline. Chest x-ray reveals stable appearance of the right lung with pneumothorax versus cavitation apex. Small effusion. Pigtail catheter remains in place. Continues to suction. No leak noted. Pleural fluid cultures revealing brevibacterium species. Sodium 144. Potassium 3.3. Bicarb 35. BUN 6. Creatinine 0.4. Glucose 92. She is continued on vancomycin and aztreonam. Continued on bronchodilators. Continued on Mucinex. The patient is seen today 10/07/2023 in follow-up on the regular medical floor. She is awake and alert in no acute distress. Feeling a bit better today compared to yesterday. Maintaining good O2 saturations in the 90s on 2 L per nasal cannula. Normal saline at 20 ML's per hour. Chest x-ray reveals right apical lucency persists which may reflect loculated pneumothorax versus cavitary process. Right midlung field pigtail catheter remains in place overlying the stable opacity. Subpulmonic right basilar effusion. Left lung is clear. Computed tomography scan of the chest revealed residual lung abscess with significant fluid content remaining. There is thickening of the right pectoralis major musculature with some air and possibly fluid within and may relate to developing infection. Pigtail catheter appears to traverse through the chest wall along the inferior margin of this potential collection. Bilateral pleural effusions as mentioned. Hemoglobin 39. Potassium 3.5. Bicarb 30. BUN 9. Creatinine 0.40. She is continued on vancomycin. Completed aztreonam. The patient is seen today 10/08/2023 in follow-up on the regular medical floor. She is sitting up at the bedside. Awake and alert in no acute distress. Denies any worsening shortness of breath, cough or congestion. He is maintaining good O2 saturations in the 90s on 2 L/m per nasal cannula. She is being treated per Brevibacterium found in her pleural fluid. A PICC line was placed yesterday. She is continued on vancomycin. Completed Azactam. Awaiting interventional radiology to discontinue her pigtail catheter. Sodium 138. Potassium 4.0. Bicarb 39. BUN 10. Creatinine 0.43. Glucose 82. Follow-up chest x-ray is unchanged with right thoracotomy tube in place in right apical lucency. She is being followed by CT services and she may require right middle lobectomy. The patient is seen today 10/09/2023 in follow-up on the regular medical floor. She is awake and alert in no acute distress. She is maintaining good O2 saturations in the 90s on 2 L/m per nasal cannula. Right-sided pigtail catheter remains in place to waterseal. She states she is feeling about the same. improvement but no worse. She is continued on DuoNeb inhalations. Remains on antibiotics in the form of vancomycin. Chest x-ray shows stable appearance post lobectomy. Right apical pneumothorax or cavitation is stable. Catheter in good position. Bronchial wash cultures positive for Brunilda. Pleural fluid cultures positive for brevibacterium species. Sputum culture revealed no growth. White count 7.0. Hemoglobin 7.3. Platelets 367. Sodium 144. Potassium 4.5. Bicarb 37. BUN 7. Creatinine 0.4. Glucose 88. Objective - Vital Signs Vital signs: Vital Signs Temp 98.5 F 10/09/23 07:47 Pulse 96 10/09/23 08:48 Resp 18 10/09/23 07:47 BP 127/72 10/09/23 07:47 Pulse Ox 98 10/09/23 07:47 FiO2 Intake & Output 10/08/23 10/09/23 10/09/23 18:59 06:59 18:59 Intake Total 118 240 Output Total 20 Balance 118 -20 240 Intake: Oral 118 240 Output: Drainage 20 Right Upper Anterior 20 Chest Other: Voiding Method Bedside Commode # Voids 3 0 # Bowel Movements 1 - Exam GENERAL EXAM: Alert, 57-year-old female, resting in bed, on 2 L nasal cannula, in no apparent distress. HEAD: Normocephalic. EYES: Normal reaction of pupils, equal size. NOSE: Clear with pink turbinates. THROAT: No erythema or exudates. NECK: No masses, no JVD. CHEST: No chest wall deformity. Right-sided pigtail catheter in place to waterseal. LUNGS: Equal air entry with crackles in the right lung base. CVS: S1 and S2 normal with no audible murmur, regular rhythm. ABDOMEN: No hepatosplenomegaly, normal bowel sounds, no guarding or rigidity. SPINE: No scoliosis or deformity SKIN: No rashes CENTRAL NERVOUS SYSTEM: No focal deficits, tone is normal in all 4 extremities. EXTREMITIES: There is no peripheral edema. No clubbing, no cyanosis. Peripheral pulses are intact. - Labs CBC & Chem 7: 10/09/23 05:53 10/09/23 05:53 Labs: Abnormal Lab Results - Last 24 Hours (Table) 10/09/23 10/09/23 Range/Units 05:53 05:53 RBC 2.78 L (4.10-5.20) X 10*6/uL Hgb 7.3 L (12.0-15.0) g/dL Hct 24.8 L (37.2-46.3) % MCH 26.3 L (27.0-32.0) pg MCHC 29.4 L (32.0-37.0) g/dL RDW 16.8 H (11.5-14.5) % MPV 8.3 L (9.5-12.2) FL Carbon Dioxide 36.6 H (21.6-31.8) mmol/L BUN 6.8 L (9.0-27.0) mg/dL Creatinine 0.4 L (0.6-1.5) mg/dL Calcium 8.1 L (8.7-10.3) mg/dL Microbiology - Last 24 Hours (Table) 10/01/23 08:40 Fungal Culture - Preliminary Bronchoalviolar Lavage - Right Brunilda albicans Assessment and Plan Assessment: Non-small cell lung cancer status post right upper lobectomy, done on 08/19/2023. Two regional hilar lymph nodes were positive for metastasis. No other lymph nodes involved. Post-operative hospital stay was complicated by persistent residual right apical pneumothorax. During this current hospitalization, she did have a follow-up bronchoscopy with BAL done on 08/31/2023, which did not isolate any bacterial organisims. Right pleural fluid culture is showing brevibacterium species Likely secondary lung abscess, A CT of the chest 09/28/2023 demonstrated focal severe consolidation of the right upper lobe measuring 7.7 cm with what appears to be a fluid density concerning for pulmonary abscess. There is an adjacent residual loculated small anterior upper lung pneumothorax measuring 4.5 cm. There is a possible second pulmonary abscess or cavitary necrosis with air-fluid level anterior right mid lung measuring 9.2 x 8.2 x 7.4 cm. status post bronchoscopy and status post pigtail catheter placement into the lung abscess. Pleural fluid culture positive for gram positive bacilli/brevibacterium species. Remains on vancomycin and completed aztreonam. Follow-up computed tomography scan today 10/07/2023 continues to show a residual lung abscess measuring approximate 6.0 x 5.0 cm, previously 8.2 x 7.4 cm's. Plan is for a right middle lobectomy on 10/13/2026. Leukocytosis, improved Residual right apical loculated pneumothorax, as described above Normocytic normochromic anemia, without any obvious blood loss Chronic obstructive pulmonary disease, with a FEV1 53% of predicted, stable. Former tobacco dependence Plan: The patient was seen and evaluated Chest x-ray, labs and medications reviewed Continue the current treatment plan Pigtail catheter remains in place Plan is for right middle lobectomy on 10/13/2023 We will continue to follow This patient was seen independently by the nurse practitioner I have personally seen and examined the patient, performed the documentation and the assessment and plan as written. Number of minutes spent on the visit: 24.
--- NOTE | 2023-10-09 12:20 | P.PN ---
Subjective Progress Note Date: 10/09/23 Patient evaluated on medical floor. Pigtail catheter remains in place with 20 mls of output documented overnight. Patient continues with productive cough brown tinged sputum and repeat sputum culture has been sent and pending at this time. Chest xray today reveals cavitation vs. pneumothorax right apex. Small effusion may be present. Bronchial washings reveal inflammation, negative for diagnostic malignancy. Patient does have known NSCLC. Remains on IV aztreonam and IV vancomycin. Procalcitonin level 0.15. 10/06/2023 Patient evaluated sitting up in bed. No drainage noted from [facility] overnight. Pigtail catheter remains n place. Chest xray today reveals stable appearance right lung with pneumothorax vs. cavitation apex. Small effusion may be present. Repeat sputum culture final showing normal hubert. The pleural fluid is finalized showing brevibacterium species. 10/07/2023 Patient is evaluated today sitting up in bed. Legs are swollen, patient has been receiving IV fluids which will be stopped. IV lasix x 1 will be given and recommending SCDs for this. Edema is non pitting. Patient had chest xray this AM showing possible loculated pneumothorax vs. cavitary process. Subpulmonic right basilar effusion. The left lung is clear. Pigtail catheter remains in place again minimal to no drainage overnight. CT following closely. Repeat sputum showing normal hubert. Remains on IV antibiotics. Patient remains on room air. 10/08/[address] yesterday showing residual lung abscess with significant fluid content remaining. Thickening of the right pectoralis major muscle with some air and possibly fluid within and may relate to developing infection in this location. Pigtail catheter remains in place. Bilateral pleural effusions. Small left and moderate right pleural effusion. Sodium 139, renal function stable. 10/09/2023 Patient evaluated today sitting up in bed. Lower extremity edema is improved after a second dose of IV lasix, remains off fluids she is eating and drinking well. BENJAMÍN hose to be applied today should help with the swelling as well. Patient continues with the pigtail catheter which has had minimal drainage over the last 2 days. Patient will be going for thoracotomy and right middle lobectomy on Wednesday. Patient remains on IV vancomycin per ID and PICC line is in place. Review of Systems Constitutional: Denied any fatigue denied any fever. Cardio vascular: denied any chest pain, palpitations Gastrointestinal: denied any nausea, vomiting, diarrhea Pulmonary: Reports shortness of breath and productive cough. Neurologic denied any new focal deficits All inpatient medications were reviewed and appropriate changes in these medications as dictated in the interval history and assessment and plan. PHYSICAL EXAMINATION: GENERAL: The patient is alert and oriented x3, not in any acute distress. Well developed, well nourished. HEENT: Pupils are round and equally reacting to light. EOMI. No scleral icterus. No conjunctival pallor. Normocephalic, atraumatic. No pharyngeal erythema. No thyromegaly. CARDIOVASCULAR: S1 and S2 present. No murmurs, rubs, or gallops. PULMONARY: Crackles in the right lung base. Right thoracotomy tube in place. ABDOMEN: Soft, nontender, nondistended, normoactive bowel sounds. No palpable organomegaly. MUSCULOSKELETAL: No joint swelling or deformity. EXTREMITIES: No cyanosis, clubbing +1 peripheral edema/ankle edema non pitting. NEUROLOGICAL: Gross neurological examination did not reveal any focal deficits. SKIN: No rashes. Assessment Rule out Cavitary lung lesion/pulmonary abscess s/p pigtail catheter placement and lytic instillation Non-small cell lung cancer status post right upper lobectomy, done on 08/19/2023. Residual right apical loculated pneumothorax s/p lobectomy Peripheral edema likely due to continued hydration patient is eating drinking appropriately. Will stop IV fluids. Hypokalemia supplemented Normocytic anemia Chronic obstructive pulmonary disease Former smoker GI prophylaxiss Full Code Plan Continue antibiotics in the form of IV vancomycin. The bronchial washings are negative for malignancy and sputum showing gram positive. Repeat sputum culture showing normal hubert. Pigtail catheter remains in place, cardiothoracic services following closely. Plan is for patient to have thoracotomy and right middle lobectomy on Wednesday. IV lasix x 2 given for the peripheral edema and recommend for BENJAMÍN hose and to elevate lower extremities while sitting. Continue to encourage incentive spirometer 10 x an hour while awake. Increase activity level. Replace repeat labs in AM. Continue all other supportive care. The impression and plan of care has been dictated by Margo Stallings Nurse Practitioner as directed. Dr. Lavern MD I have performed a history and physical examination and medical decision making of this patient, discussed the same with the dictator, and agree with the dictators assessment and plan as written, documented as a scribe. Based on total visit time, I have performed more than 50% of this visit. Objective - Vital Signs Vital signs: Vital Signs Temp 98.5 F 10/09/23 07:47 Pulse 92 10/09/23 12:01 Resp 18 10/09/23 07:47 BP 127/72 10/09/23 07:47 Pulse Ox 98 10/09/23 07:47 FiO2 Intake & Output 10/08/23 10/09/23 10/09/23 18:59 06:59 18:59 Intake Total 118 240 Output Total 20 Balance 118 -20 240 Intake: Oral 118 240 Output: Drainage 20 Right Upper Anterior 20 Chest Other: Voiding Method Bedside Commode # Voids 3 0 # Bowel Movements 1 - Labs CBC & Chem 7: 10/09/23 05:53 10/09/23 05:53 Labs: Abnormal Lab Results - Last 24 Hours (Table) 10/09/23 10/09/23 Range/Units 05:53 05:53 RBC 2.78 L (4.10-5.20) X 10*6/uL Hgb 7.3 L (12.0-15.0) g/dL Hct 24.8 L (37.2-46.3) % MCH 26.3 L (27.0-32.0) pg MCHC 29.4 L (32.0-37.0) g/dL RDW 16.8 H (11.5-14.5) % MPV 8.3 L (9.5-12.2) FL Carbon Dioxide 36.6 H (21.6-31.8) mmol/L BUN 6.8 L (9.0-27.0) mg/dL Creatinine 0.4 L (0.6-1.5) mg/dL Calcium 8.1 L (8.7-10.3) mg/dL Microbiology - Last 24 Hours (Table) 10/01/23 08:40 Fungal Culture - Preliminary Bronchoalviolar Lavage - Right Brunilda albicans Assessment and Plan Time with Patient: Less than 30
[2023-10-10] MEDS: HYDROmorphone 0.5 MG/0.5 ML SYRINGE IVP PRN ×7 (02:53→22:11)
[2023-10-10] MEDS: PANTOPRAZOLE 40 MG TABLET PO SCH (05:54)
[2023-10-10] MEDS: IPRATROPIUM-ALBUTEROL 3 ML NEB INHALATION SCH ×4 (08:15→19:41)
[2023-10-10] MEDS: METOPROLOL TARTRATE 25 MG TAB PO SCH ×2 (08:46→20:04)
[2023-10-10] MEDS: VANCOMYCIN 1,250 MG in SODIUM CHLORIDE 0.9% 250 ML IVPB SCH ×2 (08:46→22:11)
[2023-10-10] MEDS: guaiFENesin 600 MG TABLET.ER PO SCH ×2 (08:46→20:04)
--- NOTE | 2023-10-10 08:47 | P.PN ---
Subjective Progress Note Date: 10/10/23 Principal diagnosis: Pneumonia with possible lung abscess, small right pleural effusion, residual loculated small anterior upper lung pneumothorax, leukocytosis, normocytic normochromic anemia. History of non-small cell carcinoma with neuroendocrine differentiation, consistent with large cell neuroendocrine carcinoma status post robotic-assisted right upper lobectomy on 08/19/2023 and subsequent bronchoscopy with placement of right thoracostomy tube, chronic tobacco dependence with recent cessation, COPD, asthma, hyperlipidemia, GERD, diverticulitis status post bowel resection, osteoarthritis The patient was seen and examined sitting up in bed on the medical oncology unit in no acute distress. Still has frequent productive cough. Has remained afebrile, vitals stable, currently on 2 LPM NC with oxygen saturation in the high 90s. Able to achieve 2284-9581 mL on incentive spirometer. Has been ambulatory in the room. CXR reviewed. Plan remains for right middle lobectomy through a thoracotomy approach on Wednesday, patient is agreeable. Objective - Vital Signs Vital signs: Vital Signs Temp 98.5 F 10/10/23 07:45 Pulse 96 10/10/23 08:25 Resp 18 10/10/23 07:45 BP 113/68 10/10/23 07:45 Pulse Ox 98 10/10/23 07:45 FiO2 Intake & Output 10/09/23 10/10/23 10/10/23 18:59 06:59 18:59 Intake Total 600 Balance 600 Intake: Oral 600 Other: Voiding Method Bedside Commode # Voids 1 3 0 - Exam CONSTITUTIONAL: Appears comfortable, cooperative, no acute distress RESPIRATORY: Lungs sounds clear. Respirations even, nonlabored. Currently on 2 LPM NC with oxygen saturation 98%. Able to achieve 1269-8143 mL on incentive spirometry. Strong productive cough. CARDIOVASCULAR: S1, S2 present. Regular rate and rhythm, sinus rhythm on telemetry. Palpable peripheral pulses bilaterally. No edema present. No calf pain or tenderness noted GASTROINTESTINAL: Abdomen soft, nontender, nondistended. Active bowel sounds present 4 quadrants. Tolerating minimal diet. Positive bowel movement GENITOURINARY: Continues to void INTEGUMENTARY: Skin is warm and dry. Thoracic incisions well healed NEUROLOGIC: Cranial nerves II through XII intact MUSKULOSKELETAL: Able to move all extremities, strength equal bilaterally, gait normal PSYCHIATRIC: Alert and oriented to person place and time, appropriate affect, intact judgment and insight INVASIVE TUBES: Right sided pigtail catheter present to waterseal, minimal drainage - Allied health notes Allied health notes reviewed: nursing - Labs CBC & Chem 7: 10/09/23 05:53 10/09/23 05:53 Labs: Abnormal Lab Results - Last 24 Hours (Table) 10/09/23 10/09/23 Range/Units 05:53 05:53 RBC 2.78 L (4.10-5.20) X 10*6/uL Hgb 7.3 L (12.0-15.0) g/dL Hct 24.8 L (37.2-46.3) % MCH 26.3 L (27.0-32.0) pg MCHC 29.4 L (32.0-37.0) g/dL RDW 16.8 H (11.5-14.5) % MPV 8.3 L (9.5-12.2) FL Carbon Dioxide 36.6 H (21.6-31.8) mmol/L BUN 6.8 L (9.0-27.0) mg/dL Creatinine 0.4 L (0.6-1.5) mg/dL Calcium 8.1 L (8.7-10.3) mg/dL - Imaging and Cardiology Chest x-ray: image reviewed Assessment and Plan Assessment: Pneumonia with possible lung abscess, status post bronchoscopy and right sided pigtail catheter placement Small right pleural effusion, residual loculated small anterior upper lung pneumothorax Leukocytosis, secondary to above Normocytic normochromic anemia Non-small cell carcinoma with neuroendocrine differentiation, consistent with large cell neuroendocrine carcinoma status post robotic-assisted right upper lobectomy on 08/19/2023 and subsequent bronchoscopy with placement of right thoracostomy tube Chronic tobacco dependence with recent cessation COPD, FEV1 87%, DLCO 55% Asthma Hyperlipidemia GERD Diverticulitis status post bowel resection Osteoarthritis Plan: Dr. Espino will plan for thoracotomy with right middle lobectomy on October 13. This was discussed with the patient, her , and her daughter Continue IV antibiotics per infectious disease Will monitor daily labs, CXR Wean oxygen as tolerated, encourage use of incentive spirometry 10 times every hour while awake Increase activity as tolerated, out of bed for all meals, patient may shower with pigtail and PICC covered Pain control per current medication regimen Reinforced continued smoking cessation Bronchodilator per rod buster helper Medical management of other comorbidities per internal medicine, pulmonology, ID More recommendations to follow based on patient's clinical course
--- NOTE | 2023-10-10 11:18 | P.PN ---
Subjective Progress Note Date: 10/10/23 I am seeing this patient in consultation today 09/30/2023 for suspected pulmonary abscess. Patient is a 57-year-old white female with past medical history significant for right upper lobe non-small cell lung carcinoma status post robotic-assisted VATS involving a right upper lobectomy on August 19. She did have a complicated postoperative hospital stay with a persistent right sided pneumothorax and opacification of the right midlung area. She has been closely followed up on an outpatient basis. She does follow Dr. Davey in the pulmonary office, and also had a office visit with Dr. Espino from cardiothoracic surgery on 09/17. She states that she has "not really been 100%" since surgery. More recently she has had symptoms of exertional shortness of breath, right-sided back pain, productive cough with yellow/green sputum sometimes pink tinged, and subjective fevers. She has received courses of Levaquin and doxycycline outpatient. A CT of the chest done 2 days ago demonstrated focal severe consolidation of the right upper lobe measuring 7.7 cm with what appears to be a fluid density concerning for pulmonary abscess. There is an adjacent residual loculated small anterior upper lung pneumothorax measuring 4.5 cm. There is a possible secondary pulmonary abscess or cavitary necrosis with air-fluid level anterior right mid lung measuring 9.2 x 8.2 x 7.4 cm. For this reason, she was directed to the emergency room yesterday. Patient was given doses of Levaquin and vancomycin in the emergency room. She does have a penicillin ALLERGY. Bronchoscopy with BAL done on 08/23/2023 did not identify significant bacterial growth. CBC shows a WBC count of 16, hemoglobin 9.6, hematocrit 30.4, platelets 694. BMP on arrival shows sodium 133, potassium 3.2, chloride 83, serum bicarbonate 34, BUN 12, creatinine 0.5, glucose 112. Normal saline infusing at 130 ML's per hour. Lactic acid level I.9. Patient is currently lying in bed, on 2 L/m nasal cannula, in no acute distress. SPO2 97%. She is slightly tachycardic with a heart rate of 116 bpm. She was febrile with a T-max of 100F. Blood cultures pending. Hemodynamically stable. Patient was seen and examined today on 10/01/23, seems to be doing about the same, continues to have cough and shortness of breath. Cough is productive with thick yellow phlegm. Underwent a bronchoscopy today , please refer to the full operative report. Patient was found to have significant area and secretions coming out of the right middle lobe, mucosa in the right middle lobe was noted to be thick [place] edematous, and has quite a bit of abnormal appearance, multiple biopsies from the right lobe bronchus were done, and lavage of the right middle lobe/medial segment was also performed. In the meantime the patient remains on antibiotics, and these will likely be adjusted based on the final culture from the BAL. Patient continues to have leukocytosis with WBC count of 17.9 hemoglobin 8.9, basic metabolic profile is normal Reevaluated today on 10/02/23, patient was seen by interventional radiology yesterday, and she underwent placement of a pigtail catheter into her right lung. Significant purulent drainage is noted into the pleural VAC, chest x-ray is showing improvement, clinically the patient is feeling better, remains on antibiotics, cultures are pending however the Gram stain is showing gram- positive cocci and that is from the pleural effusion fluid. BAL Gram stain is showing moderate PMNs and mixed organisms including gram-negative bacilli and gram-positive cocci. Patient is tolerating antibiotics well, and apparently she had one of placed treatment into the lung. Abscess. Patient refusing to have any more. WBC count is down today to 6.2 from 17.9 hemoglobin is 7.9, basic metabolic profile is normal. Renal profile is normal patient remains in the meantime on vancomycin and on aztreonam. The patient is seen today 10/03/2023 in follow-up on the regular medical floor. She is currently sitting up in a chair at the bedside. Awake and alert in no acute distress. Breathing quite a bit better. Maintaining good O2 saturations in the 90s on room air. She's been afebrile. Hemodynamically stable. Chest x- ray shows improvement in the right-sided empyema. Chest tube remains in place to wall suction. There was another 300 ML's of purulent drainage in the past 24 hours. She did receive alteplase/dornase earlier this morning per CT services. Pleural fluid cultures revealing no growth thus far. Bronchial wash cultures revealing no growth thus far. Sputum culture revealed no growth. White count 5.5. Hemoglobin 7.4. Sodium 136. Potassium 3.4. Bicarb 33. BUN 5. Creatinine 0.52. Glucose 91. She remains on aztreonam and vancomycin. The patient is seen today 10/04/2023 in follow-up on the regular medical floor. She is awake and alert in no acute distress. Sitting up in bed. Maintaining good O2 saturations in the 90s on 4 L/m per nasal cannula. She did undergo bronchoscopy with BAL and biopsies on 10/01/2023. Cytology pending. Pleural fluid cultures are showing gram-positive bacilli. White count 9.2. Hemoglobin 8.1. Platelets 536. Sodium 137. Potassium 3.1. Bicarb 35. BUN 4. Creatinine 0.43. She is continued on aztreonam and vancomycin. Remains on bronchodilators. She does have a productive cough of dark brown colored sputum. Another sputum culture will be sent. Chest x-ray continues to show a small right apical pneumothorax which is increased from prior. There is haziness to the right lung which is unchanged. Pulling about 750 MLS on her incentive spirometer. Right-sided pigtail catheter remains in place to continuous wall suction with approximately 170 ML's of purulent drainage in the past 24 hours. The patient is seen today 10/05/2023 in follow-up on the regular medical floor. She is currently resting in bed. Awake and alert in no acute distress. Feeling a bit better today compared to yesterday. Less cough and congestion. Chest x- ray continues to show a small right apical pneumothorax. Continued haziness to the right lung, pigtail catheter remains in place. Remains to suction. No leak noted. Continued on aztreonam and vancomycin. Pleural fluid culture was positive for gram positive bacilli. Sputum culture pending. Bronchial wash cultures revealed no growth. White count 6.6. Hemoglobin 7.8. Platelets 531. Sodium 138. Potassium 2.4. Bicarb 36. BUN 6. Creatinine 0.39. AST 18. ALT 16. Alk phos 117. Pro-calcitonin 0.15. She continues working well with the incentive spirometer. Continued on bronchodilators. The patient is seen today 10/06/2023 in follow-up on the regular medical floor. She is currently sitting up at the bedside. Maintaining good O2 saturations in the upper 90s on 2 L/m per nasal cannula. Awake and alert in no acute distress. Continues to feel a bit better each day. Still not quite back to her baseline. Chest x-ray reveals stable appearance of the right lung with pneumothorax versus cavitation apex. Small effusion. Pigtail catheter remains in place. Continues to suction. No leak noted. Pleural fluid cultures revealing brevibacterium species. Sodium 144. Potassium 3.3. Bicarb 35. BUN 6. Creatinine 0.4. Glucose 92. She is continued on vancomycin and aztreonam. Continued on bronchodilators. Continued on Mucinex. The patient is seen today 10/07/2023 in follow-up on the regular medical floor. She is awake and alert in no acute distress. Feeling a bit better today compared to yesterday. Maintaining good O2 saturations in the 90s on 2 L per nasal cannula. Normal saline at 20 ML's per hour. Chest x-ray reveals right apical lucency persists which may reflect loculated pneumothorax versus cavitary process. Right midlung field pigtail catheter remains in place overlying the stable opacity. Subpulmonic right basilar effusion. Left lung is clear. Computed tomography scan of the chest revealed residual lung abscess with significant fluid content remaining. There is thickening of the right pectoralis major musculature with some air and possibly fluid within and may relate to developing infection. Pigtail catheter appears to traverse through the chest wall along the inferior margin of this potential collection. Bilateral pleural effusions as mentioned. Hemoglobin 39. Potassium 3.5. Bicarb 30. BUN 9. Creatinine 0.40. She is continued on vancomycin. Completed aztreonam. The patient is seen today 10/08/2023 in follow-up on the regular medical floor. She is sitting up at the bedside. Awake and alert in no acute distress. Denies any worsening shortness of breath, cough or congestion. He is maintaining good O2 saturations in the 90s on 2 L/m per nasal cannula. She is being treated per Brevibacterium found in her pleural fluid. A PICC line was placed yesterday. She is continued on vancomycin. Completed Azactam. Awaiting interventional radiology to discontinue her pigtail catheter. Sodium 138. Potassium 4.0. Bicarb 39. BUN 10. Creatinine 0.43. Glucose 82. Follow-up chest x-ray is unchanged with right thoracotomy tube in place in right apical lucency. She is being followed by CT services and she may require right middle lobectomy. The patient is seen today 10/09/2023 in follow-up on the regular medical floor. She is awake and alert in no acute distress. She is maintaining good O2 saturations in the 90s on 2 L/m per nasal cannula. Right-sided pigtail catheter remains in place to waterseal. She states she is feeling about the same. improvement but no worse. She is continued on DuoNeb inhalations. Remains on antibiotics in the form of vancomycin. Chest x-ray shows stable appearance post lobectomy. Right apical pneumothorax or cavitation is stable. Catheter in good position. Bronchial wash cultures positive for Brunilda. Pleural fluid cultures positive for brevibacterium species. Sputum culture revealed no growth. White count 7.0. Hemoglobin 7.3. Platelets 367. Sodium 144. Potassium 4.5. Bicarb 37. BUN 7. Creatinine 0.4. Glucose 88. The patient is seen today 10/10/2023 in follow-up on the regular medical floor. She is sitting up in bed. Awake and alert in no acute distress. Continues to maintain good O2 saturations in the 90s on 2 L/m per nasal cannula. Chest x-ray is essentially unchanged. Continues with a small right apical pneumothorax post right upper lobectomy. Right-sided pigtail catheter remains in place to waterseal. Minimal drainage. Denies to work well with the incentive spirometer, pulling nearly 1500 ML's. Pleural fluid cultures was positive for Leah bacterium species. Sputum culture revealed no growth. Bronchoalveolar lavage cultures revealed no growth. No new labs. She remains on vancomycin. Continued on bronchodilators, Mucinex. Objective - Vital Signs Vital signs: Vital Signs Temp 98.5 F 10/10/23 07:45 Pulse 96 10/10/23 08:25 Resp 18 10/10/23 07:45 BP 113/68 10/10/23 07:45 Pulse Ox 98 10/10/23 07:45 FiO2 Intake & Output 10/09/23 10/10/23 10/10/23 18:59 06:59 18:59 Intake Total 600 120 Balance 600 120 Intake: Oral 600 120 Other: Voiding Method Bedside Commode # Voids 1 3 0 - Exam GENERAL EXAM: Alert, pleasant, fatigued, 57-year-old female, resting in bed, on 2 L nasal cannula, in no apparent distress. HEAD: Normocephalic. EYES: Normal reaction of pupils, equal size. NOSE: Clear with pink turbinates. THROAT: No erythema or exudates. NECK: No masses, no JVD. CHEST: No chest wall deformity. Right-sided pigtail catheter in place to wate rseal. LUNGS: Equal air entry with crackles in the right lung base. CVS: S1 and S2 normal with no audible murmur, regular rhythm. ABDOMEN: No hepatosplenomegaly, normal bowel sounds, no guarding or rigidity. SPINE: No scoliosis or deformity SKIN: No rashes CENTRAL NERVOUS SYSTEM: No focal deficits, tone is normal in all 4 extremities. EXTREMITIES: There is no peripheral edema. No clubbing, no cyanosis. Peripheral pulses are intact. - Labs CBC & Chem 7: 10/09/23 05:53 10/09/23 05:53 Assessment and Plan Assessment: Non-small cell lung cancer status post right upper lobectomy, done on 08/19/2023. Two regional hilar lymph nodes were positive for metastasis. No other lymph nodes involved. Post-operative hospital stay was complicated by persistent residual right apical pneumothorax. During this current ho spitalization, she did have a follow-up bronchoscopy with BAL done on 08/31/2023, which did not isolate any bacterial organisims. Right pleural fluid culture is showing brevibacterium species Likely secondary lung abscess, A CT of the chest 09/28/2023 demonstrated focal severe consolidation of the right upper lobe measuring 7.7 cm with what appears to be a fluid density concerning for pulmonary abscess. There is an adjacent residual loculated small anterior upper lung pneumothorax measuring 4.5 cm. There is a possible second pulmonary abscess or cavitary necrosis with air-fluid level anterior right mid lung measuring 9.2 x 8.2 x 7.4 cm. status post bronchoscopy and status post pigtail catheter placement into the lung abscess. Pleural fluid culture positive for gram positive bacilli/br evibacterium species. Remains on vancomycin and completed aztreonam. Follow-up computed tomography scan today 10/07/2023 continues to show a residual lung abscess measuring approximate 6.0 x 5.0 cm, previously 8.2 x 7.4 cm's. Plan is for a right middle lobectomy on 10/13/2026. Leukocytosis, improved Residual right apical loculated pneumothorax, as described above Normocytic normochromic anemia, without any obvious blood loss Chronic obstructive pulmonary disease, with a FEV1 53% of predicted, stable. Former tobacco dependence Plan: The patient was seen and evaluated Chest x-ray and medications reviewed Pigtail catheter remains in place Continues to work well with the incentive spirometer Plan is for right middle lobectomy on 10/13/2023 Increase her activity as tolerated We will continue to follow This patient was seen independently by the nurse practitioner I have personally seen and examined the patient, performed the documentation and the assessment and plan as written. Number of minutes spent on the visit: 22.
--- NOTE | 2023-10-10 11:19 | P.PN ---
Subjective Progress Note Date: 10/10/23 Patient evaluated on medical floor. Pigtail catheter remains in place with 20 mls of output documented overnight. Patient continues with productive cough brown tinged sputum and repeat sputum culture has been sent and pending at this time. Chest xray today reveals cavitation vs. pneumothorax right apex. Small effusion may be present. Bronchial washings reveal inflammation, negative for diagnostic malignancy. Patient does have known NSCLC. Remains on IV aztreonam and IV vancomycin. Procalcitonin level 0.15. 10/06/2023 Patient evaluated sitting up in bed. No drainage noted from [facility] overnight. Pigtail catheter remains n place. Chest xray today reveals stable appearance right lung with pneumothorax vs. cavitation apex. Small effusion may be present. Repeat sputum culture final showing normal hubert. The pleural fluid is finalized showing brevibacterium species. 10/07/2023 Patient is evaluated today sitting up in bed. Legs are swollen, patient has been receiving IV fluids which will be stopped. IV lasix x 1 will be given and recommending SCDs for this. Edema is non pitting. Patient had chest xray this AM showing possible loculated pneumothorax vs. cavitary process. Subpulmonic right basilar effusion. The left lung is clear. Pigtail catheter remains in place again minimal to no drainage overnight. CT following closely. Repeat sputum showing normal hubert. Remains on IV antibiotics. Patient remains on room air. 10/08/[address] yesterday showing residual lung abscess with significant fluid content remaining. Thickening of the right pectoralis major muscle with some air and possibly fluid within and may relate to developing infection in this location. Pigtail catheter remains in place. Bilateral pleural effusions. Small left and moderate right pleural effusion. Sodium 139, renal function stable. 10/09/2023 Patient evaluated today sitting up in bed. Lower extremity edema is improved after a second dose of IV lasix, remains off fluids she is eating and drinking well. BENJAMÍN hose to be applied today should help with the swelling as well. Patient continues with the pigtail catheter which has had minimal drainage over the last 2 days. Patient will be going for thoracotomy and right middle lobectomy on Wednesday. Patient remains on IV vancomycin per ID and PICC line is in place. 10/10/2023 Patient evaluated today sitting up in bed. Remains on 2L of oxygen. Lower extremity edema improved. Continues on IV vancomycin. Pending repeat chest xray reports. Cardiothoracic following closely patient will go for right middle lobectomy and thoracotomy on Wednesday. Review of Systems Constitutional: Denied any fatigue denied any fever. Cardio vascular: denied any chest pain, palpitations Gastrointestinal: denied any nausea, vomiting, diarrhea Pulmonary: Reports shortness of breath and productive cough. Neurologic denied any new focal deficits All inpatient medications were reviewed and appropriate changes in these medications as dictated in the interval history and assessment and plan. PHYSICAL EXAMINATION: GENERAL: The patient is alert and oriented x3, not in any acute distress. Well developed, well nourished. HEENT: Pupils are round and equally reacting to light. EOMI. No scleral icterus. No conjunctival pallor. Normocephalic, atraumatic. No pharyngeal erythema. No thyromegaly. CARDIOVASCULAR: S1 and S2 present. No murmurs, rubs, or gallops. PULMONARY: Crackles in the right lung base. Right thoracotomy tube in place. ABDOMEN: Soft, nontender, nondistended, normoactive bowel sounds. No palpable organomegaly. MUSCULOSKELETAL: No joint swelling or deformity. EXTREMITIES: No cyanosis, clubbing +1 peripheral edema/ankle edema non pitting. NEUROLOGICAL: Gross neurological examination did not reveal any focal deficits. SKIN: No rashes. Assessment Rule out Cavitary lung lesion/pulmonary abscess s/p pigtail catheter placement and lytic instillation Non-small cell lung cancer status post right upper lobectomy, done on 3. Residual right apical loculated pneumothorax s/p lobectomy Peripheral edema likely due to continued hydration patient is eating drinking appropriately. Will stop IV fluids. Hypokalemia supplemented Normocytic anemia Chronic obstructive pulmonary disease Former smoker GI prophylaxiss Full Code Plan Continue antibiotics in the form of IV vancomycin. The bronchial washings are negative for malignancy and sputum showing gram positive. Repeat sputum culture showing normal hubert. Pigtail catheter remains in place, cardiothoracic services following closely. Plan is for patient to have thoracotomy and right middle lobectomy on Wednesday. IV lasix x 2 given for the peripheral edema and recommend for BENJAMÍN hose and to elevate lower extremities while sitting. Continue to encourage incentive spirometer 10 x an hour while awake. Increase activity level. Replace repeat labs in AM. Continue all other supportive care. The impression and plan of care has been dictated by Margo Stallings, Nurse Practitioner as directed. Dr. Lavern MD I have performed a history and physical examination and medical decision making of this patient, discussed the same with the dictator, and agree with the dictators assessment and plan as written, documented as a scribe. Based on total visit time, I have performed more than 50% of this visit. Objective - Vital Signs Vital signs: Vital Signs Temp 98.5 F 10/10/23 07:45 Pulse 96 10/10/23 08:25 Resp 18 10/10/23 07:45 BP 113/68 10/10/23 07:45 Pulse Ox 98 10/10/23 07:45 FiO2 Intake & Output 10/09/23 10/10/23 10/10/23 18:59 06:59 18:59 Intake Total 600 120 Balance 600 120 Intake: Oral 600 120 Other: Voiding Method Bedside Commode # Voids 1 3 0 - Labs CBC & Chem 7: 10/09/23 05:53 10/09/23 05:53 Assessment and Plan Time with Patient: Less than 30
--- NOTE | 2023-10-10 14:30 | XR ---
EXAMINATION TYPE: XR chest 1V portable DATE OF EXAM: 10/10/2023 COMPARISON: 10/09/2023 INDICATION: Post lobectomy TECHNIQUE: Single frontal view of the chest is obtained. FINDINGS: The heart size is normal. The pulmonary vasculature is normal. Increased lung markings are noted in the right upper lung field. Smaller right apical aeration is pre sent. Catheters present on the right stable position. Subpulmonic effusion on the right may be presen t. IMPRESSION: 1. Improving aeration right hemithorax
--- NOTE | 2023-10-10 15:52 | P.PN ---
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 the patient is status post robotic assisted right upper lobectomy on 08/19/2023, now presented to hospital with persistent cough shortness of breath did have a low-grade fever abnormal CT suspicious for possible pneumonia/lung abscess, the patient is status post bronchoscopy by pulmonary and patient also have a pigtail catheter placed in by IR On today's evaluation that is 10/09/2023 the patient continues to be afebrile, the patient is breathing comfortably on 2 L nasal cannula oxygen and denies any shortness of breath, the patient denies chest pain or cough, patient denies abdominal pain, no nausea/vomiting or diarrhea. Patient white count is 7.09, creatinine 0.4 her fluid culture growing Brevibacterium species Objective - Vital Signs Vital signs: Vital Signs Temp 98.5 F 10/09/23 07:47 Pulse 92 10/09/23 12:01 Resp 18 10/09/23 07:47 BP 127/72 10/09/23 07:47 Pulse Ox 98 10/09/23 07:47 FiO2 Intake & Output 10/08/23 10/09/23 10/09/23 18:59 06:59 18:59 Intake Total 118 480 Output Total 20 Balance 118 -20 480 Intake: Oral 118 480 Output: Drainage 20 Right Upper Anterior 20 Chest Other: Voiding Method Bedside Commode # Voids 3 2 # Bowel Movements 1 - Exam GENERAL DESCRIPTION: A middle-age female up in bed in no distress RESPIRATORY SYSTEM: Unlabored breathing , decreased breath sounds at the base HEART: S1 S2 regular rate and rhythm , ABDOMEN: Soft , no tenderness EXTREMITIES: No edema feet - Labs CBC & Chem 7: 10/09/23 05:53 10/09/23 05:53 Labs: Abnormal Lab Results - Last 24 Hours (Table) 10/09/23 10/09/23 Range/Units 05:53 05:53 RBC 2.78 L (4.10-5.20) X 10*6/uL Hgb 7.3 L (12.0-15.0) g/dL Hct 24.8 L (37.2-46.3) % MCH 26.3 L (27.0-32.0) pg MCHC 29.4 L (32.0-37.0) g/dL RDW 16.8 H (11.5-14.5) % MPV 8.3 L (9.5-12.2) FL Carbon Dioxide 36.6 H (21.6-31.8) mmol/L BUN 6.8 L (9.0-27.0) mg/dL Creatinine 0.4 L (0.6-1.5) mg/dL Calcium 8.1 L (8.7-10.3) mg/dL Microbiology - Last 24 Hours (Table) 10/01/23 08:40 Fungal Culture - Preliminary Bronchoalviolar Lavage - Right Brunilda albicans Assessment and Plan (1) Pneumonia Current Visit: Yes Status: Acute Code(s): J18.9 - PNEUMONIA, UNSPECIFIED ORGANISM SNOMED Code(s): 814674115 (2) Allergy to multiple antibiotics Current Visit: Yes Status: Acute Code(s): Z88.1 - ALLERGY STATUS TO OTHER ANTIBIOTIC AGENTS SNOMED Code(s): 518506813 (3) Lung abscess Current Visit: Yes Status: Acute Code(s): J85.2 - ABSCESS OF LUNG WITHOUT PNEUMONIA SNOMED Code(s): 37003874 Plan: 1patient presented to hospital with sepsis in this patient who did have a fever tachycardia hypoxemia elevated white count source is unlikely pneumonia with question of possible abscess/empyema in this patient with recent surgery we will need to cover for resistant gram-positive as well as gram-negative pathogen. 2patient with the penicillin and cephalosporin allergy that would limit the number of antibiotics safe to use. 3-patient is status post bronchoscopy lavage and also have placement of a pigtail catheter by IR , cultures are currently growing Brevibacterium species 4patient to continue with vancomycin pharmacy to dose plan is for possible thoracotomy and right middle lobectomy by CT surgery on 10/13/2023 Dictation was produced using [employer] dictation software. please excuse any grammatical, word or spelling errors. Time with Patient: Less than 30
--- NOTE | 2023-10-10 15:53 | P.PN ---
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 the patient is status post robotic assisted right upper lobectomy on 08/19/2023, now presented to hospital with persistent cough shortness of breath did have a low-grade fever abnormal CT suspicious for possible pneumonia/lung abscess, the patient is status post bronchoscopy by pulmonary and patient also have a pigtail catheter placed in by IR On today's evaluation that is 10/10/2023 the patient denies any fever or any chills, the patient denies shortness of breath currently on atorvastatin is currently oxygen and right-sided chest pain has decreased did have some cough with minimal sputum production, the patient nausea/vomiting or diarrhea and no abdominal pain. Patient white count is 7.09, creatinine 0.4 as of 10/09/2023 her fluid culture growing Brevibacterium species Objective - Vital Signs Vital signs: Vital Signs Temp 98.2 F 10/10/23 14:00 Pulse 96 10/10/23 15:42 Resp 18 10/10/23 14:00 BP 104/56 10/10/23 14:00 Pulse Ox 96 10/10/23 14:00 FiO2 Intake & Output 10/09/23 10/10/23 10/10/23 18:59 06:59 18:59 Intake Total 600 240 Balance 600 240 Intake: Oral 600 240 Other: Voiding Method Bedside Commode # Voids 1 3 1 - Exam GENERAL DESCRIPTION: A middle-age female up in bed in no distress RESPIRATORY SYSTEM: Unlabored breathing , decreased breath sounds at the base HEART: S1 S2 regular rate and rhythm , ABDOMEN: Soft , no tenderness EXTREMITIES: No edema feet - Labs CBC & Chem 7: 10/09/23 05:53 10/09/23 05:53 Assessment and Plan (1) Pneumonia Current Visit: Yes Status: Acute Code(s): J18.9 - PNEUMONIA, UNSPECIFIED ORG ANISM SNOMED Code(s): 147761372 (2) Allergy to multiple antibiotics Current Visit: Yes Status: Acute Code(s): Z88.1 - ALLERGY STATUS TO OTHER ANTIBIOTIC AGENTS SNOMED Code(s): 638470998 (3) Lung abscess Current Visit: Yes Status: Acute Code(s): J85.2 - ABSCESS OF LUNG WITHOUT PNEUMONIA SNOMED Code(s): 80787294 Plan: 1patient presented to hospital with sepsis in this patient who did have a fever tachycardia hypoxemia elevated white count source is unlikely pneumonia with question of possible abscess/empyema in this patient with recent surgery we will need to cover for resistant gram-positive as well as gram-negative pathogen. 2patient with the penicillin and cephalosporin allergy that would limit the number of antibiotics safe to use. 3-patient is status post bronchoscopy lavage and also have placement of a pigtail catheter by IR , cultures are currently growing Brevibacterium species 4patient to continue with vancomycin pharmacy to dose on watching her kidney function closely creatinine is currently normal plan is for possible thoracotomy and right middle lobectomy by CT surgery on 10/13/2023 Dictation was produced using [employer] dictation software. please excuse any grammatical, word or spelling errors. Time with Patient: Less than 30
[2023-10-11] MEDS: HYDROmorphone 0.5 MG/0.5 ML SYRINGE IVP PRN ×7 (01:46→23:50)
[2023-10-11] MEDS: PANTOPRAZOLE 40 MG TABLET PO SCH (06:22)
[2023-10-11] MEDS ORDERED: VANCOMYCIN TROUGH DUE 1 EACH MISC MISCELLANE ONE (07:00)
--- NOTE | 2023-10-11 07:42 | XR ---
EXAMINATION TYPE: XR chest 1V portable DATE OF EXAM: 10/11/2023 7:19 AM CLINICAL INDICATION:Female, 57 years old with history of pneumonia; [facility] COMPARISON: Chest radiograph from one day prior. TECHNIQUE: XR chest 1V portable Frontal view of the chest. FINDINGS/IMPRESSION: Stable exam with hazy right lung with thoracotomy tube in appropriate position. A small apical pneumo thorax on the right remains and may be fractionally smaller. The left lung is clear.
[2023-10-11] MEDS: IPRATROPIUM-ALBUTEROL 3 ML NEB INHALATION SCH ×4 (08:08→20:24)
[2023-10-11] MEDS: METOPROLOL TARTRATE 25 MG TAB PO SCH ×2 (08:17→20:18)
[2023-10-11] MEDS: guaiFENesin 600 MG TABLET.ER PO SCH ×2 (08:18→20:17)
[2023-10-11] MEDS: VANCOMYCIN 1,250 MG in SODIUM CHLORIDE 0.9% 250 ML IVPB SCH ×2 (09:20→20:17)
--- NOTE | 2023-10-11 15:52 | P.PN ---
Subjective Progress Note Date: 10/11/23 I am seeing this patient in consultation today 09/30/2023 for suspected pulmonary abscess. Patient is a 57-year-old white female with past medical history significant for right upper lobe non-small cell lung carcinoma status post robotic-assisted VATS involving a right upper lobectomy on August 19, . She did have a complicated postoperative hospital stay with a persistent right sided pneumothorax and opacification of the right midlung area. She has been closely followed up on an outpatient basis. She does follow Dr. Davey in the pulmonary office, and also had a office visit with Dr. Espino from cardiothoracic surgery on 09/17. She states that she has "not really been 100%" since surgery. More recently she has had symptoms of exertional shortness of breath, right-sided back pain, productive cough with yellow/green sputum sometimes pink tinged, and subjective fevers. She has received courses of Levaquin and doxycycline outpatient. A CT of the chest done 2 days ago demonstrated focal severe consolidation of the right upper lobe measuring 7.7 cm with what appears to be a fluid density concerning for pulmonary abscess. There is an adjacent residual loculated small anterior upper lung pneumothorax measuring 4.5 cm. There is a possible secondary pulmonary abscess or cavitary necrosis with air-fluid level anterior right mid lung measuring 9.2 x 8.2 x 7.4 cm. For this reason, she was directed to the emergency room yesterday. Patient was given doses of Levaquin and vancomycin in the emergency room. She does have a penicillin ALLERGY. Bronchoscopy with BAL done on 08/23/2023 did not identify significant bacterial growth. CBC shows a WBC count of 16, hemoglobin 9.6, hematocrit 30.4, platelets 694. BMP on arrival shows sodium 133, potassium 3.2, chloride 83, serum bicarbonate 34, BUN 12, creatinine 0.5, glucose 112. Normal saline infusing at 130 ML's per hour. Lactic acid level I.9. Patient is currently lying in bed, on 2 L/m nasal cannula, in no acute distress. SPO2 97%. She is slightly tachycardic with a heart rate of 116 bpm. She was febrile with a T-max of 100F. Blood cultures pending. Hemodynamically stable. Patient was seen and examined today on 10/01/23, seems to be doing about the same, continues to have cough and shortness of breath. Cough is productive with thick yellow phlegm. Underwent a bronchoscopy today , please refer to the full operative report. Patient was found to have significant area and secretions coming out of the right middle lobe, mucosa in the right middle lobe was noted to be thick GA edematous, and has quite a bit of abnormal appearance, multiple biopsies from the right lobe bronchus were done, and lavage of the right middle lobe/medial segment was also performed. In the meantime the patient remains on antibiotics, and these will likely be adjusted based on the final culture from the BAL. Patient continues to have leukocytosis with WBC count of 17.9 hemoglobin 8.9, basic metabolic profile is normal Reevaluated today on 10/02/23, patient was seen by interventional radiology yesterday, and she underwent placement of a pigtail catheter into her right lung. Significant purulent drainage is noted into the pleural VAC, chest x-ray is showing improvement, clinically the patient is feeling better, remains on antibiotics, cultures are pending however the Gram stain is showing gram- positive cocci and that is from the pleural effusion fluid. BAL Gram stain is showing moderate PMNs and mixed organisms including gram-negative bacilli and gram-positive cocci. Patient is tolerating antibiotics well, and apparently she had one of placed treatment into the lung. Abscess. Patient refusing to have any more. WBC count is down today to 6.2 from 17.9 hemoglobin is 7.9, basic metabolic profile is normal. Renal profile is normal patient remains in the meantime on vancomycin and on aztreonam. The patient is seen today 10/03/2023 in follow-up on the regular medical floor. She is currently sitting up in a chair at the bedside. Awake and alert in no acute distress. Breathing quite a bit better. Maintaining good O2 saturations in the 90s on room air. She's been afebrile. Hemodynamically stable. Chest x- ray shows improvement in the right-sided empyema. Chest tube remains in place to wall suction. There was another 300 ML's of purulent drainage in the past 24 hours. She did receive alteplase/dornase earlier this morning per CT services. Pleural fluid cultures revealing no growth thus far. Bronchial wash cultures revealing no growth thus far. Sputum culture revealed no growth. White count 5.5. Hemoglobin 7.4. Sodium 136. Potassium 3.4. Bicarb 33. BUN 5. Creatinine 0.52. Glucose 91. She remains on aztreonam and vancomycin. The patient is seen today 10/04/2023 in follow-up on the regular medical floor. She is awake and alert in no acute distress. Sitting up in bed. Maintaining good O2 saturations in the 90s on 4 L/m per nasal cannula. She did undergo bronchoscopy with BAL and biopsies on 10/01/2023. Cytology pending. Pleural fluid cultures are showing gram-positive bacilli. White count 9.2. Hemoglobin 8.1. Platelets 536. Sodium 137. Potassium 3.1. Bicarb 35. BUN 4. Creatinine 0.43. She is continued on aztreonam and vancomycin. Remains on bronchodilators. She does have a productive cough of dark brown colored sputum. Another sputum culture will be sent. Chest x-ray continues to show a small right apical pneumothorax which is increased from prior. There is haziness to the right lung which is unchanged. Pulling about 750 MLS on her incentive spirometer. Right-sided pigtail catheter remains in place to continuous wall suction with approximately 170 ML's of purulent drainage in the past 24 hours. The patient is seen today 10/05/2023 in follow-up on the regular medical floor. She is currently resting in bed. Awake and alert in no acute distress. Feeling a bit better today compared to yesterday. Less cough and congestion. Chest x- ray continues to show a small right apical pneumothorax. Continued haziness to the right lung, pigtail catheter remains in place. Remains to suction. No leak noted. Continued on aztreonam and vancomycin. Pleural fluid culture was positive for gram positive bacilli. Sputum culture pending. Bronchial wash cultures revealed no growth. White count 6.6. Hemoglobin 7.8. Platelets 531. Sodium 138. Potassium 2.4. Bicarb 36. BUN 6. Creatinine 0.39. AST 18. ALT 16. Alk phos 117. Pro-calcitonin 0.15. She continues working well with the incentive spirometer. Continued on bronchodilators. The patient is seen today 10/06/2023 in follow-up on the regular medical floor. She is currently sitting up at the bedside. Maintaining good O2 saturations in the upper 90s on 2 L/m per nasal cannula. Awake and alert in no acute distress. Continues to feel a bit better each day. Still not quite back to her baseline. Chest x-ray reveals stable appearance of the right lung with pneumothorax versus cavitation apex. Small effusion. Pigtail catheter remains in place. Continues to suction. No leak noted. Pleural fluid cultures revealing brevibacterium species. Sodium 144. Potassium 3.3. Bicarb 35. BUN 6. Creatinine 0.4. Glucose 92. She is continued on vancomycin and aztreonam. Continued on bronchodilators. Continued on Mucinex. The patient is seen today 10/07/2023 in follow-up on the regular medical floor. She is awake and alert in no acute distress. Feeling a bit better today compared to yesterday. Maintaining good O2 saturations in the 90s on 2 L per nasal cannula. Normal saline at 20 ML's per hour. Chest x-ray reveals right apical lucency persists which may reflect loculated pneumothorax versus cavitary process. Right midlung field pigtail catheter remains in place overlying the stable opacity. Subpulmonic right basilar effusion. Left lung is clear. Computed tomography scan of the chest revealed residual lung abscess with significant fluid content remaining. There is thickening of the right pectoralis major musculature with some air and possibly fluid within and may relate to developing infection. Pigtail catheter appears to traverse through the chest wall along the inferior margin of this potential collection. Bilateral pleural effusions as mentioned. Hemoglobin 39. Potassium 3.5. Bicarb 30. BUN 9. Creatinine 0.40. She is continued on vancomycin. Completed aztreonam. The patient is seen today 10/08/2023 in follow-up on the regular medical floor. She is sitting up at the bedside. Awake and alert in no acute distress. Denies any worsening shortness of breath, cough or congestion. He is maintaining good O2 saturations in the 90s on 2 L/m per nasal cannula. She is being treated per Brevibacterium found in her pleural fluid. A PICC line was placed yesterday. She is continued on vancomycin. Completed Azactam. Awaiting interventional radiology to discontinue her pigtail catheter. Sodium 138. Potassium 4.0. Bicarb 39. BUN 10. Creatinine 0.43. Glucose 82. Follow-up chest x-ray is unchanged with right thoracotomy tube in place in right apical lucency. She is being followed by CT services and she may require right middle lobectomy. The patient is seen today 10/09/2023 in follow-up on the regular medical floor. She is awake and alert in no acute distress. She is maintaining good O2 saturations in the 90s on 2 L/m per nasal cannula. Right-sided pigtail catheter remains in place to waterseal. She states she is feeling about the same. improvement but no worse. She is continued on DuoNeb inhalations. Remains on antibiotics in the form of vancomycin. Chest x-ray shows stable appearance post lobectomy. Right apical pneumothorax or cavitation is stable. Catheter in good position. Bronchial wash cultures positive for Brunilda. Pleural fluid cultures positive for brevibacterium species. Sputum culture revealed no growth. White count 7.0. Hemoglobin 7.3. Platelets 367. Sodium 144. Potassium 4.5. Bicarb 37. BUN 7. Creatinine 0.4. Glucose 88. The patient is seen today 10/10/2023 in follow-up on the regular medical floor. She is sitting up in bed. Awake and alert in no acute distress. Continues to maintain good O2 saturations in the 90s on 2 L/m per nasal cannula. Chest x-ray is essentially unchanged. Continues with a small right apical pneumothorax post right upper lobectomy. Right-sided pigtail catheter remains in place to waterseal. Minimal drainage. Denies to work well with the incentive spirometer, pulling nearly 1500 ML's. Pleural fluid cultures was positive for Leah bacterium species. Sputum culture revealed no growth. Bronchoalveolar lavage cultures revealed no growth. No new labs. She remains on vancomycin. Continued on bronchodilators, Mucinex. On today's evaluation of 10/11/2023, the patient's is resting comfortably in bed. Patient is currently on 2 L of oxygen by nasal cannula with a pulse ox of 98%. The most recent chest x-ray from today shows a small apical pneumothorax on the right. The left lung is clear. There is a stable hazy right lung capacity with a tube in place. The patient continues to drain purulent material from the right-sided chest tube with this in the order of 20 mL. Approximately 20-40 mL of purulent drainage has been obtained from the right lung and the culture was positive for Brevibacterium species. The antibiotic coverage is with vancomycin. Infectious diseases on the case. The labs were not done today. Most recent labs were reviewed. Objective - Vital Signs Vital signs: Vital Signs Temp 98.1 F 10/11/23 08:00 Pulse 100 10/11/23 11:39 Resp 16 10/11/23 08:00 BP 148/78 10/11/23 08:00 Pulse Ox 96 10/11/23 08:00 FiO2 Intake & Output 10/10/23 10/11/23 10/11/23 18:59 06:59 18:59 Intake Total 360 356 Balance 360 356 Intake: Oral 360 356 Other: Voiding Method Bedside Commode Bedside Commode # Voids 300 1 - Exam GENERAL EXAM: Alert, pleasant, fatigued, 57-year-old female, resting in bed, on 2 L nasal cannula, in no apparent distress. HEAD: Normocephalic. EYES: Normal reaction of pupils, equal size. NOSE: Clear with pink turbinates. THROAT: No erythema or exudates. NECK: No masses, no JVD. CHEST: No chest wall deformity. Right-sided pigtail catheter in place to waterseal. LUNGS: Equal air entry with crackles in the right lung base. CVS: S1 and S2 normal with no audible murmur, regular rhythm. ABDOMEN: No hepatosplenomegaly, normal bowel sounds, no guarding or rigidity. SPINE: No scoliosis or deformity SKIN: No rashes CENTRAL NERVOUS SYSTEM: No focal deficits, tone is normal in all 4 extremities. EXTREMITIES: There is no peripheral edema. No clubbing, no cyanosis. Peripheral pulses are intact. - Labs CBC & Chem 7: 10/09/23 05:53 10/09/23 05:53 Assessment and Plan Plan: Non-small cell lung cancer status post right upper lobectomy, done on 08/19/2023. Two regional hilar lymph nodes were positive for metastasis. No other lymph nodes involved. The patient had T2b N 1 M0 disease. Persistent postop right apical pneumothorax, improved Right lung abscess, A CT of the chest 09/28/2023 demonstrated focal severe consolidation of the right upper lobe measuring 7.7 cm with what appears to be a fluid density concerning for pulmonary abscess. There is an adjacent residual loculated small anterior upper lung pneumothorax measuring 4.5 cm. There is a possible second pulmonary abscess or cavitary necrosis with air-fluid level anterior right mid lung measuring 9.2 x 8.2 x 7.4 cm. status post bronchoscopy and status post pigtail catheter placement into the lung abscess. Pleural fluid culture positive for gram positive bacilli/brevibacterium species. Remains on vancomycin and completed aztreonam. Follow-up computed tomography scan today 10/07/2023 continues to show a residual lung abscess measuring approximate 6.0 x 5.0 cm, previously 8.2 x 7.4 cm's. Plan is for a right middle lobectomy on 04/2026. Leukocytosis, improved Residual right apical loculated pneumothorax, as described above Normocytic normochromic anemia, without any obvious blood loss Chronic obstructive pulmonary disease, with a FEV1 53% of predicted, stable. Former tobacco dependence Plan: The patient is stable on 2 L of oxygen by nasal cannula and we will going to keep Pigtail catheter remains in place Continues to work well with the incentive spirometer Plan is for right middle lobectomy on 10/13/2023 , surgical expiration of the pleural space, evacuation of the right lung abscess Increase her activity as tolerated We will continue to follow
--- NOTE | 2023-10-11 16:28 | P.PN ---
Subjective Progress Note Date: 10/11/23 Principal diagnosis: Pneumonia with possible lung abscess, small right pleural effusion, residual loculated small anterior upper lung pneumothorax, leukocytosis, normocytic normochromic anemia. History of non-small cell carcinoma with neuroendocrine differentiation, consistent with large cell neuroendocrine carcinoma status post robotic-assisted right upper lobectomy on 08/19/2023 and subsequent bronchoscopy with placement of right thoracostomy tube, chronic tobacco dependence with recent cessation, COPD, asthma, hyperlipidemia, GERD, diverticulitis status post bowel resection, osteoarthritis The patient was seen and examined sitting up in bed on the medical oncology unit in no acute distress. Still has frequent productive cough. Has remained afebrile, vitals stable, currently on 2 LPM NC with oxygen saturation in the high 90s. Able to achieve 2883-8634 mL on incentive spirometer. Has been ambulatory in the room. CXR reviewed. Objective - Vital Signs Vital signs: Vital Signs Temp 98.4 F 10/11/23 15:17 Pulse 91 10/11/23 15:17 Resp 16 10/11/23 15:17 BP 137/83 10/11/23 15:17 Pulse Ox 98 10/11/23 15:17 FiO2 Intake & Output 10/10/23 10/11/23 10/11/23 18:59 06:59 18:59 Intake Total 360 356 Balance 360 356 Intake: Oral 360 356 Other: Voiding Method Bedside Commode Bedside Commode # Voids 300 1 3 - Exam CONSTITUTIONAL: Appears comfortable, cooperative, no acute distress RESPIRATORY: Lungs sounds clear. Respirations even, nonlabored. Currently on 2 LPM NC with oxygen saturation 98%. Able to achieve 7810-1089 mL on incentive spirometry. Strong productive cough. CARDIOVASCULAR: S1, S2 present. Regular rate and rhythm, sinus rhythm on telemetry. Palpable peripheral pulses bilaterally. No edema present. No calf pain or tenderness noted GASTROINTESTINAL: Abdomen soft, nontender, nondistended. Active bowel sounds present 4 quadrants. Tolerating minimal diet. Positive bowel movement GENITOURINARY: Continues to void INTEGUMENTARY: Skin is warm and dry. Thoracic incisions well healed NEUROLOGIC: Cranial nerves II through XII intact MUSKULOSKELETAL: Able to move all extremities, strength equal bilaterally, gait normal PSYCHIATRIC: Alert and oriented to person place and time, appropriate affect, intact judgment and insight INVASIVE TUBES: Right sided pigtail catheter present to [facility], minimal drainage - Allied health notes Allied health notes reviewed: nursing - Labs CBC & Chem 7: 10/09/23 05:53 10/09/23 05:53 - Imaging and Cardiology Chest x-ray: report reviewed, image reviewed Assessment and Plan Assessment: Pneumonia with possible lung abscess, status post bronchoscopy and right sided pigtail catheter placement Small right pleural effusion, residual loculated small anterior upper lung pneumothorax Leukocytosis, secondary to above Normocytic normochromic anemia Non-small cell carcinoma with neuroendocrine differentiation, consistent with large cell neuroendocrine carcinoma status post robotic-assisted right upper lobectomy on 08/19/2023 and subsequent bronchoscopy with placement of right thoracostomy tube Chronic tobacco dependence with recent cessation COPD, FEV1 87%, DLCO 55% Asthma Hyperlipidemia GERD Diverticulitis status post bowel resection Osteoarthritis Plan: Will obtain repeat CT of chest tomorrow as CXR today looks better than yesterday updated at the bedside Continue IV antibiotics per infectious disease Will monitor daily labs, CXR Wean oxygen as tolerated, encourage use of incentive spirometry 10 times every hour while awake Increase activity as tolerated, out of bed for all meals, patient may shower with pigtail and PICC covered Pain control per current medication regimen Reinforced continued smoking cessation Bronchodilator per sql manager Medical management of other comorbidities per internal medicine, pulmonology, ID More recommendations to follow based on patient's clinical course
[2023-10-11] MEDS: HYDROcodone/APAP 5-325MG 1 EACH TAB PO PRN (18:32)
[2023-10-11] MEDS ORDERED: FUROSEMIDE 10 MG/ML 2 ML VIAL IV STA (20:08)
--- NOTE | 2023-10-11 20:17 | PN ---
PROGRESS NOTE DATE OF SERVICE: 10/11/2023 SUBJECTIVE: This is a 57-year-old woman, who was admitted after lung cancer resection, suspected to have lung abscess. The patient had bronchoscopy, and Cardiothoracic Surgery is planning for thoracotomy with right middle lobectomy on Wednesday. There is no history of any fever or rigors. PAST MEDICAL HISTORY: Reviewed. REVIEW OF SYSTEMS: Fourteen-point review is negative except as mentioned earlier. CURRENT MEDICATIONS: Reviewed include DuoNeb. Doses and rest of the medications are noted. PHYSICAL EXAMINATION: VITAL SIGNS: Pulse is 96, blood pressure is 148/70, respirations 16. CHEST: Few scattered rhonchi and crackles. ABDOMEN: Soft. NERVOUS SYSTEM: Nonfocal. LABORATORY DATA: Hemoglobin 7.3. Rest of the labs are noted. ASSESSMENT: 1. Pneumonia with possible lung abscess, status post bronchoscopy, for right middle lobectomy on Wednesday by Cardiothoracic Surgery. 2. Right pleural effusion. 3. Possible cavitary lesion. 4. Hypokalemia. 5. Chronic obstructive pulmonary disease. 6. Anemia, multifactorial. 7. History of asthma. 8. Hyperlipidemia. RECOMMENDATIONS AND DISCUSSION: In this 57-year-old woman presented with multiple complex medical issues, we will monitor the patient closely. Lobectomy per Cardiothoracic Surgery. Repeat labs. I would also recommend a unit of transfusion for symptomatic anemia. See orders for the details. Further recommendations to follow. MMODL / IJN: [id number] /
[2023-10-12] MEDS: HYDROmorphone 0.5 MG/0.5 ML SYRINGE IVP PRN ×7 (02:50→21:05)
[2023-10-12] MEDS: PANTOPRAZOLE 40 MG TABLET PO SCH (05:58)
[2023-10-12 06:36] LABS: ALT 16 U/L (4-34); AST 28 U/L (14-36); African American GFR (CKD) >90 (>60 ml/min/1.73 sqM); Albumin 2.5 g/dL (3.5-5.0); Albumin/Globulin Ratio 0.8; Alkaline Phosphatase 102 U/L (38-126); Anion Gap 6 mmol/L; Blood Urea Nitrogen 8 mg/dL (7-17); Calcium 8.1 mg/dL (8.4-10.2); Carbon Dioxide 35 mmol/L (22-30); Chloride 97 mmol/L (98-107); Glucose 86 mg/dL (74-99); Non-African American GFR(CKD) >90 (>60 ml/min/1.73 sqM); Potassium 4.4 mmol/L (3.5-5.1); Sodium 138 mmol/L (137-145); Total Bilirubin 0.2 mg/dL (0.2-1.3); Total Protein 5.5 g/dL (6.3-8.2)
--- NOTE | 2023-10-12 08:23 | CT ---
EXAMINATION TYPE: CT chest wo con DATE OF EXAM: 10/12/2023 COMPARISON: 10/07/2023 HISTORY: follow up chest abscess CT DLP: 333.[address] of the chest was performed with lung and mediastinal window settings submitted. The la ck of contrast limits evaluation of the vascular, mediastinal and parenchymal structures including th e upper abdomen. LUNGS: Anterior collection persists with internal surgical drain noted. Overall appearance is not sig nificantly changed. Collection is difficult to measure however is estimated at 7.3 x 5.5 cm versus 7. 5 x 6.7 cm previously. Craniocaudal measurement of 8.2 cm versus 8.4 cm previously. Patchy infiltrate right lower lobe posteriorly. Small right-sided effusion persists. Right-sided rib lesions unchanged. Left lung demonstrates increasing pleural effusion with maximal AP dimension of 3. 2 cm. MEDIASTINUM/JOSIE: Thoracic aorta is of normal caliber with limited evaluation given lack of contrast . The heart is not enlarged. No evidence for mediastinal mass. No lymph nodes greater than 1cm. UPPER ABDOMEN: No significant abnormality is seen. OTHER: No significant other abnormality. IMPRESSION: 1. No significant change in anterior collection with internal surgical drain. Internal foci of air. 2. New patchy infiltrate right lower lobe posteriorly. Bilateral pleural effusions as discussed.
[2023-10-12] MEDS: IPRATROPIUM-ALBUTEROL 3 ML NEB INHALATION SCH ×4 (08:32→20:25)
[2023-10-12 08:49] LABS: HCT 30.1 % (37.2-46.3); MCH 26.8 pg (27.0-32.0); MCHC 29.9 g/dL (32.0-37.0); MCV 89.6 FL (80.0-97.0); Mean Platelet Volume 8.6 FL (9.5-12.2); NRBC Per 100 WBC 0 X 10*3/uL (0.00-0.01); Platelet Count 331 X 10*3/uL (140-440); RBC 3.36 X 10*6/uL (4.10-5.20); RDW 18.3 % (11.5-14.5); WBC 4.86 X 10*3/uL (4.50-10.00)
[2023-10-12 08:50] LABS: Basophils # (A) 0.02 X 10*3/uL (0.00-0.10); Basophils % (A) 0.4 %; Eosinophils # (A) 0.16 X 10*3/uL (0.04-0.35); Eosinophils % (A) 3.3 %; Lymphocytes # (A) 1.44 X 10*3/uL (0.90-5.00); Lymphocytes % (A) 29.6 %; Monocytes # (A) 0.61 X 10*3/uL (0.20-1.00); Monocytes % (A) 12.6 %; Neutrophils # (A) 2.61 X 10*3/uL (1.80-7.70); Neutrophils % (A) 53.7 %
[2023-10-12] MEDS: VANCOMYCIN 1,250 MG in SODIUM CHLORIDE 0.9% 250 ML IVPB SCH ×2 (08:58→20:15)
[2023-10-12] MEDS: guaiFENesin 600 MG TABLET.ER PO SCH ×2 (08:59→21:04)
[2023-10-12] MEDS: METOPROLOL TARTRATE 25 MG TAB PO SCH ×2 (08:59→20:16)
--- NOTE | 2023-10-12 12:53 | PN ---
PROGRESS NOTE DATE OF SERVICE: 10/12/2023 SUBJECTIVE: This is a 57-year-old woman, who was admitted with pneumonia and lung abscess, slated to have wedge resection on Wednesday. No chest pain. No palpitations. No fever. PHYSICAL EXAMINATION: VITAL SIGNS: Pulse is 84, blood pressure 143/84, respirations 16. CHEST: Few scattered rhonchi and crackles. ABDOMEN: Soft. NERVOUS SYSTEM: Nonfocal. LABORATORY DATA: Hemoglobin 9. Labs are noted. ASSESSMENT: 1. Pneumonia with possible lung abscess, status post bronchoscopy, for right middle lobectomy on Wednesday by Cardiothoracic Surgery for right pleural effusion. 2. Possible cavitary lesion. 3. Hypokalemia. 4. Chronic obstructive pulmonary disease. 5. Anemia, multifactorial. 6. History of asthma. 7. Hyperlipidemia. RECOMMENDATIONS: Recommend to continue current medical management. Continue symptomatic treatment. Otherwise, we will continue to monitor. Repeat labs will be ordered. Closely follow with Cardiothoracic Surgery and multiple consultants. She is stable. Prognosis is guarded. Further recommendations to follow. MMODL / IJN: [id number] /
--- NOTE | 2023-10-12 13:18 | P.PN ---
Subjective Progress Note Date: 10/12/23 I am seeing this patient in consultation today 09/30/2023 for suspected pulmonary abscess. Patient is a 57-year-old white female with past medical history significant for right upper lobe non-small cell lung carcinoma status post robotic-assisted VATS involving a right upper lobectomy on August 19, . She did have a complicated postoperative hospital stay with a persistent right sided pneumothorax and opacification of the right midlung area. She has been closely followed up on an outpatient basis. She does follow Dr. Davey in the pulmonary office, and also had a office visit with Dr. Espino from cardiothoracic surgery on 09/17. She states that she has "not really been 100%" since surgery. More recently she has had symptoms of exertional shortness of breath, right-sided back pain, productive cough with yellow/green sputum sometimes pink tinged, and subjective fevers. She has received courses of Levaquin and doxycycline outpatient. A CT of the chest done 2 days ago demonstrated focal severe consolidation of the right upper lobe measuring 7.7 cm with what appears to be a fluid density concerning for pulmonary abscess. There is an adjacent residual loculated small anterior upper lung pneumothorax measuring 4.5 cm. There is a possible secondary pulmonary abscess or cavitary necrosis with air-fluid level anterior right mid lung measuring 9.2 x 8.2 x 7.4 cm. For this reason, she was directed to the emergency room yesterday. Patient was given doses of Levaquin and vancomycin in the emergency room. She does have a penicillin ALLERGY. Bronchoscopy with BAL done on 08/23/2023 did not identify significant bacterial growth. CBC shows a WBC count of 16, hemoglobin 9.6, hematocrit 30.4, platelets 694. BMP on arrival shows sodium 133, potassium 3.2, chloride 83, serum bicarbonate 34, BUN 12, creatinine 0.5, glucose 112. Normal saline infusing at 130 ML's per hour. Lactic acid level I.9. Patient is currently lying in bed, on 2 L/m nasal cannula, in no acute distress. SPO2 97%. She is slightly tachycardic with a heart rate of 116 bpm. She was febrile with a T-max of 100F. Blood cultures pending. Hemodynamically stable. Patient was seen and examined today on 10/01/23, seems to be doing about the same, continues to have cough and shortness of breath. Cough is productive with thick yellow phlegm. Underwent a bronchoscopy today , please refer to the full operative report. Patient was found to have significant area and secretions coming out of the right middle lobe, mucosa in the right middle lobe was noted to be thick IA edematous, and has quite a bit of abnormal appearance, multiple biopsies from the right lobe bronchus were done, and lavage of the right middle lobe/medial segment was also performed. In the meantime the patient remains on antibiotics, and these will likely be adjusted based on the final culture from the BAL. Patient continues to have leukocytosis with WBC count of 17.9 hemoglobin 8.9, basic metabolic profile is normal Reevaluated today on 10/02/23, patient was seen by interventional radiology yesterday, and she underwent placement of a pigtail catheter into her right lung. Significant purulent drainage is noted into the pleural VAC, chest x-ray is showing improvement, clinically the patient is feeling better, remains on antibiotics, cultures are pending however the Gram stain is showing gram- positive cocci and that is from the pleural effusion fluid. BAL Gram stain is showing moderate PMNs and mixed organisms including gram-negative bacilli and gram-positive cocci. Patient is tolerating antibiotics well, and apparently she had one of placed treatment into the lung. Abscess. Patient refusing to have any more. WBC count is down today to 6.2 from 17.9 hemoglobin is 7.9, basic metabolic profile is normal. Renal profile is normal patient remains in the meantime on vancomycin and on aztreonam. The patient is seen today 10/03/2023 in follow-up on the regular medical floor. She is currently sitting up in a chair at the bedside. Awake and alert in no acute distress. Breathing quite a bit better. Maintaining good O2 saturations in the 90s on room air. She's been afebrile. Hemodynamically stable. Chest x- ray shows improvement in the right-sided empyema. Chest tube remains in place to wall suction. There was another 300 ML's of purulent drainage in the past 24 hours. She did receive alteplase/dornase earlier this morning per CT services. Pleural fluid cultures revealing no growth thus far. Bronchial wash cultures revealing no growth thus far. Sputum culture revealed no growth. White count 5.5. Hemoglobin 7.4. Sodium 136. Potassium 3.4. Bicarb 33. BUN 5. Creatinine 0.52. Glucose 91. She remains on aztreonam and vancomycin. The patient is seen today 10/04/2023 in follow-up on the regular medical floor. She is awake and alert in no acute distress. Sitting up in bed. Maintaining good O2 saturations in the 90s on 4 L/m per nasal cannula. She did undergo bronchoscopy with BAL and biopsies on 10/01/2023. Cytology pending. Pleural fluid cultures are showing gram-positive bacilli. White count 9.2. Hemoglobin 8.1. Platelets 536. Sodium 137. Potassium 3.1. Bicarb 35. BUN 4. Creatinine 0.43. She is continued on aztreonam and vancomycin. Remains on bronchodilators. She does have a productive cough of dark brown colored sputum. Another sputum culture will be sent. Chest x-ray continues to show a small right apical pneumothorax which is increased from prior. There is haziness to the right lung which is unchanged. Pulling about 750 MLS on her incentive spirometer. Right-sided pigtail catheter remains in place to continuous wall suction with approximately 170 ML's of purulent drainage in the past 24 hours. The patient is seen today 10/05/2023 in follow-up on the regular medical floor. She is currently resting in bed. Awake and alert in no acute distress. Feeling a bit better today compared to yesterday. Less cough and congestion. Chest x- ray continues to show a small right apical pneumothorax. Continued haziness to the right lung, pigtail catheter remains in place. Remains to suction. No leak noted. Continued on aztreonam and vancomycin. Pleural fluid culture was positive for gram positive bacilli. Sputum culture pending. Bronchial wash cultures revealed no growth. White count 6.6. Hemoglobin 7.8. Platelets 531. Sodium 138. Potassium 2.4. Bicarb 36. BUN 6. Creatinine 0.39. AST 18. ALT 16. Alk phos 117. Pro-calcitonin 0.15. She continues working well with the incentive spirometer. Continued on bronchodilators. The patient is seen today 10/06/2023 in follow-up on the regular medical floor. She is currently sitting up at the bedside. Maintaining good O2 saturations in the upper 90s on 2 L/m per nasal cannula. Awake and alert in no acute distress. Continues to feel a bit better each day. Still not quite back to her baseline. Chest x-ray reveals stable appearance of the right lung with pneumothorax versus cavitation apex. Small effusion. Pigtail catheter remains in place. Continues to suction. No leak noted. Pleural fluid cultures revealing brevibacterium species. Sodium 144. Potassium 3.3. Bicarb 35. BUN 6. Creatinine 0.4. Glucose 92. She is continued on vancomycin and aztreonam. Continued on bronchodilators. Continued on Mucinex. The patient is seen today 10/07/2023 in follow-up on the regular medical floor. She is awake and alert in no acute distress. Feeling a bit better today compared to yesterday. Maintaining good O2 saturations in the 90s on 2 L per nasal cannula. Normal saline at 20 ML's per hour. Chest x-ray reveals right apical lucency persists which may reflect loculated pneumothorax versus cavitary process. Right midlung field pigtail catheter remains in place overlying the stable opacity. Subpulmonic right basilar effusion. Left lung is clear. Computed tomography scan of the chest revealed residual lung abscess with significant fluid content remaining. There is thickening of the right pectoralis major musculature with some air and possibly fluid within and may relate to developing infection. Pigtail catheter appears to traverse through the chest wall along the inferior margin of this potential collection. Bilateral pleural effusions as mentioned. Hemoglobin 39. Potassium 3.5. Bicarb 30. BUN 9. Creatinine 0.40. She is continued on vancomycin. Completed aztreonam. The patient is seen today 10/08/2023 in follow-up on the regular medical floor. She is sitting up at the bedside. Awake and alert in no acute distress. Denies any worsening shortness of breath, cough or congestion. He is maintaining good O2 saturations in the 90s on 2 L/m per nasal cannula. She is being treated per Brevibacterium found in her pleural fluid. A PICC line was placed yesterday. She is continued on vancomycin. Completed Azactam. Awaiting interventional radiology to discontinue her pigtail catheter. Sodium 138. Potassium 4.0. Bicarb 39. BUN 10. Creatinine 0.43. Glucose 82. Follow-up chest x-ray is unchanged with right thoracotomy tube in place in right apical lucency. She is being followed by CT services and she may require right middle lobectomy. The patient is seen today 10/09/2023 in follow-up on the regular medical floor. She is awake and alert in no acute distress. She is maintaining good O2 saturations in the 90s on 2 L/m per nasal cannula. Right-sided pigtail catheter remains in place to waterseal. She states she is feeling about the same. improvement but no worse. She is continued on DuoNeb inhalations. Remains on antibiotics in the form of vancomycin. Chest x-ray shows stable appearance post lobectomy. Right apical pneumothorax or cavitation is stable. Catheter in good position. Bronchial wash cultures positive for Brunilda. Pleural fluid cultures positive for brevibacterium species. Sputum culture revealed no growth. White count 7.0. Hemoglobin 7.3. Platelets 367. Sodium 144. Potassium 4.5. Bicarb 37. BUN 7. Creatinine 0.4. Glucose 88. The patient is seen today 10/10/2023 in follow-up on the regular medical floor. She is sitting up in bed. Awake and alert in no acute distress. Continues to maintain good O2 saturations in the 90s on 2 L/m per nasal cannula. Chest x-ray is essentially unchanged. Continues with a small right apical pneumothorax post right upper lobectomy. Right-sided pigtail catheter remains in place to waterseal. Minimal drainage. Denies to work well with the incentive spirometer, pulling nearly 1500 ML's. Pleural fluid cultures was positive for Leah bacterium species. Sputum culture revealed no growth. Bronchoalveolar lavage cultures revealed no growth. No new labs. She remains on vancomycin. Continued on bronchodilators, Mucinex. On today's evaluation of 10/11/2023, the patient's is resting comfortably in bed. Patient is currently on 2 L of oxygen by nasal cannula with a pulse ox of 98%. The most recent chest x-ray from today shows a small apical pneumothorax on the right. The left lung is clear. There is a stable hazy right lung capacity with a tube in place. The patient continues to drain purulent material from the right-sided chest tube with this in the order of 20 mL. Approximately 20-40 mL of purulent drainage has been obtained from the right lung and the culture was positive for Brevibacterium species. The antibiotic coverage is with vancomycin. Infectious diseases on the case. The labs were not done today. Most recent labs were reviewed. On today's evaluation of 10/12/2023, the patient is essentially stable and unchanged compared to yesterday. She remains on O2 at 2 L nasal cannula. Output from the right-sided pigtail catheter is minimal at this point in time in the order of 50 mL over the past 12 hours. The patient remains on vancomycin. Repeat CAT scan of the chest was done and there is no significant interval change in the collection involving the right middle lobe. The surgical pigtail catheter in place. The area is measured to be around 7.3 x 5.5 cm in size which is comparable to last measurements. Patchy infiltrate is also seen in the posterior segment of the right lower lobe and a small right-sided pleural effusion and a small left-sided pleural effusion is also present. The patient denies having any pain. The white cell cause of 4.8 with a hemoglobin of 9. BUN is at 8 with a creatinine of 0.46 and a sodium level is at 138. Vancomycin trough levels of 15.2. Surgeries on the case and catheterization for another surgical expiration of the right lung. Objective - Vital Signs Vital signs: Vital Signs Temp 98.1 F 10/12/23 08:00 Pulse 96 10/12/23 08:49 Resp 16 10/12/23 08:00 BP 143/84 10/12/23 08:00 Pulse Ox 94 L 10/12/23 08:00 FiO2 Intake & Output 10/11/23 10/12/23 10/12/23 18:59 06:59 18:59 Intake Total 596 310 240 Output Total 0 Balance 596 310 240 Intake: Oral 596 240 Blood Product 0 310 Rc As-1 Unit 0 310 [id number] Output: Chest Tube Drainage 0 Chest Tube Right Upper 0 Anterior Chest Other: Voiding Method Bedside Commode Bedside Commode # Voids 1 # Bowel Movements 1 - Exam GENERAL EXAM: Alert, pleasant, fatigued, 57-year-old female, resting in bed, on 2 L nasal cannula, in no apparent distress. HEAD: Normocephalic. EYES: Normal reaction of pupils, equal size. NOSE: Clear with pink turbinates. THROAT: No erythema or exudates. NECK: No masses, no JVD. CHEST: No chest wall deformity. Right-sided pigtail catheter in place to waterseal. LUNGS: Equal air entry with crackles in the right lung base. CVS: S1 and S2 normal with no audible murmur, regular rhythm. ABDOMEN: No hepatosplenomegaly, normal bowel sounds, no guarding or rigidity. SPINE: No scoliosis or deformity SKIN: No rashes CENTRAL NERVOUS SYSTEM: No focal deficits, tone is normal in all 4 extremities. EXTREMITIES: There is no peripheral edema. No clubbing, no cyanosis. Peripheral pulses are intact. - Labs CBC & Chem 7: 10/12/23 05:30 10/12/23 05:30 Labs: Abnormal Lab Results - Last 24 Hours (Table) 10/11/23 10/12/23 10/12/23 Range/Units 15:38 05:30 05:30 RBC 3.36 L (4.10-5.20) X 10*6/uL Hgb 9.0 L (12.0-15.0) g/dL Hct 30.1 L (37.2-46.3) % MCH 26.8 L (27.0-32.0) pg MCHC 29.9 L (32.0-37.0) g/dL RDW 18.3 H (11.5-14.5) % MPV 8.6 L (9.5-12.2) FL Chloride 97 L (98-107) mmol/L Carbon Dioxide 35 H (22-30) mmol/L Creatinine 0.46 L (0.52-1.04) mg/dL Calcium 8.1 L (8.4-10.2) mg/dL Total Protein 5.5 L (6.3-8.2) g/dL Albumin 2.5 L (3.5-5.0) g/dL Crossmatch See Detail Microbiology - Last 24 Hours (Table) 10/01/23 08:40 Acid Fast Bacilli Smear - Preliminary Bronchoalviolar Lavage - Right Acid Fast Bacilli Culture - Preliminary Assessment and Plan Plan: Non-small cell lung cancer status post right upper lobectomy, done on 08/19/2023. Two regional hilar lymph nodes were positive for metastasis. No other lymph nodes involved. The patient had T2b N 1 M0 disease. Persistent postop right apical pneumothorax, improved Right lung abscess, A CT of the chest 09/28/2023 demonstrated focal severe consolidation of the right upper lobe measuring 7.7 cm with what appears to be a fluid density concerning for pulmonary abscess. There is an adjacent residual loculated small anterior upper lung pneumothorax measuring 4.5 cm. There is a possible second pulmonary abscess or cavitary necrosis with air-fluid level anterior right mid lung measuring 9.2 x 8.2 x 7.4 cm. status post bronchoscopy and status post pigtail catheter placement into the lung abscess. Pleural fluid culture positive for gram positive bacilli/brevibacterium species. Remains on vancomycin and completed aztreonam. Follow-up computed tomography scan today 10/07/2023 continues to show a residual lung abscess measuring approximate 6.0 x 5.0 cm, previously 8.2 x 7.4 cm's. Plan is for a right middle lobectomy on 10/13/2026. Leukocytosis, improved Residual right apical loculated pneumothorax, as described above Normocytic normochromic anemia, without any obvious blood loss Chronic obstructive pulmonary disease, with a FEV1 53% of predicted, stable. Former tobacco dependence Plan: Repeat CAT scan of the chest is unchanged Patient is clinically stable and hemodynamically stable No significant leukocytosis Output from the pigtail catheter is minimal The patient is stable on 2 L of oxygen by nasal cannula and we will going to keep Pigtail catheter remains in place Continues to work well with the incentive spirometer s Will have final discussion with thoracic surgery regarding right middle lobe resection and surgical expiration of the pleural space, evacuation of the right lung abscess, alternatively, the patient can be treated with IV antibiotics for the next 4-6 weeks and a concerted or surgery following that. The final decision to be made after having further discussion with the surgical team. Increase her activity as tolerated We will continue to follow
--- NOTE | 2023-10-12 16:11 | P.PN ---
Subjective Progress Note Date: 10/12/23 Principal diagnosis: Pneumonia with possible lung abscess, small right pleural effusion, residual loculated small anterior upper lung pneumothorax, leukocytosis, normocytic normochromic anemia. History of non-small cell carcinoma with neuroendocrine differentiation, consistent with large cell neuroendocrine carcinoma status post robotic-assisted right upper lobectomy on 08/19/2023 and subsequent bronchoscopy with placement of right thoracostomy tube, chronic tobacco dependence with recent cessation, COPD, asthma, hyperlipidemia, GERD, diverticulitis status post bowel resection, osteoarthritis The patient was seen and examined sitting up in bed on the medical oncology unit in no acute distress. Updated patient and at bedside yesterday afternoon. CT scan completed today and reviewed with Dr. Espino, plan is for surgery tomorrow, discussed with the patient and her at length. No other new concerns. Objective - Vital Signs Vital signs: Vital Signs Temp 98.2 F 10/12/23 13:29 Pulse 85 10/12/23 13:29 Resp 16 10/12/23 13:29 BP 131/71 10/12/23 13:29 Pulse Ox 97 10/12/23 13:29 FiO2 Intake & Output 10/11/23 10/12/23 10/12/23 18:59 06:59 18:59 Intake Total 596 310 240 Output Total 0 Balance 596 310 240 Intake: Oral 596 240 Blood Product 0 310 Rc As-1 Unit 0 310 [id number] Output: Chest Tube Drainage 0 Chest Tube Right Upper 0 Anterior Chest Other: Voiding Method Bedside Commode Bedside Commode # Voids 1 # Bowel Movements 1 - Exam CONSTITUTIONAL: Appears comfortable, cooperative, no acute distress RESPIRATORY: Lungs sounds clear. Respirations even, nonlabored. Currently on 2 LPM NC with oxygen saturation 97%. Able to achieve 2535-8016 mL on incentive spirometry. Strong productive cough. CARDIOVASCULAR: S1, S2 present. Regular rate and rhythm, sinus rhythm on telemetry. Palpable peripheral pulses bilaterally. No edema present. No calf pain or tenderness noted GASTROINTESTINAL: Abdomen soft, nontender, nondistended. Active bowel sounds present 4 quadrants. Tolerating minimal diet. Positive bowel movement GENITOURINARY: Continues to void INTEGUMENTARY: Skin is warm and dry. Thoracic incisions well healed NEUROLOGIC: Cranial nerves II through XII intact MUSKULOSKELETAL: Able to move all extremities, strength equal bilaterally, gait normal PSYCHIATRIC: Alert and oriented to person place and time, appropriate affect, intact judgment and insight INVASIVE TUBES: Right sided pigtail catheter present to waterseal, minimal drainage - Labs CBC & Chem 7: 10/12/23 05:30 12 05:30 Labs: Abnormal Lab Results - Last 24 Hours (Table) 10/11/23 10/12/23 10/12/23 Range/Units 15:38 05:30 05:30 RBC 3.36 L (4.10-5.20) X 10*6/uL Hgb 9.0 L (12.0-15.0) g/dL Hct 30.1 L (37.2-46.3) % MCH 26.8 L (27.0-32.0) pg MCHC 29.9 L (32.0-37.0) g/dL RDW 18.3 H (11.5-14.5) % MPV 8.6 L (9.5-12.2) FL Chloride 97 L (98-107) mmol/L Carbon Dioxide 35 H (22-30) mmol/L Creatinine 0.46 L (0.52-1.04) mg/dL Calcium 8.1 L (8.4-10.2) mg/dL Total Protein 5.5 L (6.3-8.2) g/dL Albumin 2.5 L (3.5-5.0) g/dL Crossmatch See Detail Microbiology - Last 24 Hours (Table) 10/01/23 08:40 Acid Fast Bacilli Smear - Preliminary Bronchoalviolar Lavage - Right Acid Fast Bacilli Culture - Preliminary - Imaging and Cardiology CT scan - chest: report reviewed, image reviewed Assessment and Plan Assessment: Pneumonia with possible lung abscess, status post bronchoscopy and right sided pigtail catheter placement Small right pleural effusion, residual loculated small anterior upper lung pneumothorax Leukocytosis, secondary to above Normocytic normochromic anemia Non-small cell carcinoma with neuroendocrine differentiation, consistent with large cell neuroendocrine carcinoma status post robotic-assisted right upper lobectomy on 08/19/2023 and subsequent bronchoscopy with placement of right thoracostomy tube Chronic tobacco dependence with recent cessation COPD, FEV1 87%, DLCO 55% Asthma Hyperlipidemia GERD Diverticulitis status post bowel resection Osteoarthritis Plan: CT of chest reviewed with Dr. Espino, plan is for right middle lobectomy through thoracotomy tomorrow by Dr. Espino updated at the bedside Continue IV antibiotics per infectious disease Will monitor daily labs, CXR Wean oxygen as tolerated, encourage use of incentive spirometry 10 times every h our while awake Increase activity as tolerated, out of bed for all meals, patient may shower with pigtail and PICC covered Pain control per current medication regimen Reinforced continued smoking cessation Bronchodilator per stores naval Medical management of other comorbidities per internal medicine, pulmonology, ID More recommendations to follow based on patient's clinical course
--- NOTE | 2023-10-12 16:36 | P.PN ---
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 the patient is status post robotic assisted right upper lobectomy on 08/19/2023, now presented to hospital with persistent cough shortness of breath did have a low-grade fever abnormal CT suspicious for possible pneumonia/lung abscess, the patient is status post bronchoscopy by pulmonary and patient also have a pigtail catheter placed in by IR On today's evaluation that is 10/11/2023 the patient remains to be afebrile, the patient is breathing comfortably on 2 L nasal cannula supplemental oxygen, the patient denies having any chest pain denies any worsening cough or sputum production, patient denies any abdominal pain no nausea vomiting or any diarrhea, Patient white count is 7.09, creatinine 0.4 as of 10/09/2023, no CBC was done today her fluid culture growing Brevibacterium species Objective - Vital Signs Vital signs: Vital Signs Temp 98.3 F 10/11/23 20:16 Pulse 103 H 10/11/23 20:36 Resp 16 10/11/23 20:16 BP 138/80 10/11/23 20:16 Pulse Ox 96 10/11/23 20:16 FiO2 Intake & Output 10/11/23 10/11/23 10/12/23 06:59 18:59 06:59 Intake Total 596 310 Balance 596 310 Intake: Oral 596 Blood Product 0 310 Rc As-1 Unit 0 310 [id number] Other: Voiding Method Bedside Commode Bedside Commode # Voids 1 1 # Bowel Movements 1 - Exam GENERAL DESCRIPTION: A middle-age female up in bed in no distress RESPIRATORY SYSTEM: Unlabored breathing , decreased breath sounds at the base HEART: S1 S2 regular rate and rhythm , ABDOMEN: Soft , no tenderness EXTREMITIES: No edema feet - Labs CBC & Chem 7: 10/12/23 05:30 10/12/23 05:30 Labs: Abnormal Lab Results - Last 24 Hours (Table) 10/11/23 Range/Units 15:38 Crossmatch See Detail Microbiology - Last 24 Hours (Table) 10/01/23 08:40 Acid Fast Bacilli Smear - Preliminary Bronchoalviolar Lavage - Right Acid Fast Bacilli Culture - Preliminary Assessment and Plan (1) Pneumonia Current Visit: Yes Status: Acute Code(s): J18.9 - PNEUMONIA, UNSPECIFIED ORGANISM SNOMED Code(s): 928039469 (2) Allergy to multiple antibiotics Current Visit: Yes Status: Acute Code(s): Z88.1 - ALLERGY STATUS TO OTHER ANTIBIOTIC AGENTS SNOMED Code(s): 236561564 (3) Lung abscess Current Visit: Yes Status: Acute Code(s): J85.2 - ABSCESS OF LUNG WITHOUT PNEUMONIA SNOMED Code(s): 55634921 Plan: 1patient presented to hospital with sepsis in this patient who did have a fever tachycardia hypoxemia elevated white count source is unlikely pneumonia with question of possible abscess/empyema in this patient with recent surgery we will need to cover for resistant gram-positive as well as gram-negative pathogen. 2patient with the penicillin and cephalosporin allergy that would limit the number of antibiotics safe to use. 3-patient is status post bronchoscopy lavage and also have placement of a pigtail catheter by IR , cultures are currently growing Brevibacterium species 4patient to continue with vancomycin pharmacy to dose on watching her kidney function closely we will repeat her CBC and a BMP with a.m. lab Dictation was produced using [employer] dictation software. please excuse any grammatical, word or spelling errors. Time with Patient: Less than 30
--- NOTE | 2023-10-12 16:37 | P.PN ---
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 the patient is status post robotic assisted right upper lobectomy on 08/19/2023, now presented to hospital with persistent cough shortness of breath did have a low-grade fever abnormal CT suspicious for possible pneumonia/lung abscess, the patient is status post bronchoscopy by pulmonary and patient also have a pigtail catheter placed in by IR On today's evaluation that is 10/12/2023, the patient continues to be afebrile and is breathing comfortably on 2 L nasal cannula oxygen, and patient denies any shortness of breath, chest pain, no worsening cough or sputum production, patient denies nausea/vomiting /diarrhea and no abdominal pain. Patient white count is 4.86, creatinine 0.46, pleural fluid culture growing Brevibacterium species, BAL with dylan Objective - Vital Signs Vital signs: Vital Signs Temp 98.2 F 10/12/23 13:29 Pulse 88 10/12/23 15:53 Resp 16 10/12/23 13:29 BP 131/71 10/12/23 13:29 Pulse Ox 97 10/12/23 13:29 FiO2 Intake & Output 10/11/23 10/12/23 10/12/23 18:59 06:59 18:59 Intake Total 596 310 480 Output Total 300 Balance 596 10 480 Intake: Oral 596 480 Blood Product 0 310 Rc As-1 Unit 0 310 [id number] Output: Chest Tube Drainage 0 Chest Tube Right Upper 0 Anterior Chest Urine 300 Other: Voiding Method Bedside Commode Bedside Commode # Voids 1 # Bowel Movements 1 - Exam GENERAL DESCRIPTION: A middle-age female up in bed in no distress RESPIRATORY SYSTEM: Unlabored breathing , decreased breath sounds at the base HEART: S1 S2 regular rate and rhythm , ABDOMEN: Soft , no tenderness EXTREMITIES: No edema feet - Labs CBC & Chem 7: 10/12/23 05:30 10/12/23 05:30 Labs: Abnormal Lab Results - Last 24 Hours (Table) 10/11/23 10/12/23 10/12/23 Range/Units 15:38 05:30 05:30 RBC 3.36 L (4.10-5.20) X 10*6/uL Hgb 9.0 L (12.0-15.0) g/dL Hct 30.1 L (37.2-46.3) % MCH 26.8 L (27.0-32.0) pg MCHC 29.9 L (32.0-37.0) g/dL RDW 18.3 H (11.5-14.5) % MPV 8.6 L (9.5-12.2) FL Chloride 97 L (98-107) mmol/L Carbon Dioxide 35 H (22-30) mmol/L Creatinine 0.46 L (0.52-1.04) mg/dL Calcium 8.1 L (8.4-10.2) mg/dL Total Protein 5.5 L (6.3-8.2) g/dL Albumin 2.5 L (3.5-5.0) g/dL Crossmatch See Detail Microbiology - Last 24 Hours (Table) 10/01/23 08:40 Acid Fast Bacilli Smear - Preliminary Bronchoalviolar Lavage - Right Acid Fast Bacilli Culture - Preliminary Assessment and Plan (1) Pneumonia Current Visit: Yes Status: Acute Code(s): J18.9 - PNEUMONIA, UNSPECIFIED ORGANISM SNOMED Code(s): 085018715 (2) Allergy to multiple antibiotics Current Visit: Yes Status: Acute Code(s): Z88.1 - ALLERGY STATUS TO OTHER ANTIBIOTIC AGENTS SNOMED Code(s): 755298762 (3) Lung abscess Current Visit: Yes Status: Acute Code(s): J85.2 - ABSCESS OF LUNG WITHOUT PNEUMONIA SNOMED Code(s): 19145654 Plan: 1patient presented to hospital with sepsis in this patient who did have a fever tachycardia hypoxemia elevated white count source is unlikely pneumonia with question of possible abscess/empyema in this patient with recent surgery we will need to cover for resistant gram-positive as well as gram-negative pathogen. 2patient with the penicillin and cephalosporin allergy that would limit the num sruthi of antibiotics safe to use. 3-patient is status post bronchoscopy lavage and also have placement of a pigtail catheter by IR , pleural fluid cultures are currently growing Brevibacterium species 4patient to continue with vancomycin pharmacy to dose , creatinine remains to be normal patient is scheduled for surgery tomorrow and will monitor glucose closely Dictation was produced using [employer] dictation software. please excuse any grammatical, word or spelling errors. Time with Patient: Less than 30
[2023-10-12] MEDS: SENNOSIDES-DOCUSATE SODIUM 1 EACH TAB PO PRN (21:09)
[2023-10-13] MEDS: HYDROmorphone 0.5 MG/0.5 ML SYRINGE IVP PRN ×4 (01:08→10:44)
[2023-10-13] MEDS: PANTOPRAZOLE 40 MG TABLET PO SCH (06:05)
[2023-10-13] MEDS: IPRATROPIUM-ALBUTEROL 3 ML NEB INHALATION SCH ×4 (08:25→20:28)
[2023-10-13 08:49] LABS: Basophils # (A) 0.02 X 10*3/uL (0.00-0.10); Basophils % (A) 0.4 %; Eosinophils # (A) 0.16 X 10*3/uL (0.04-0.35); Eosinophils % (A) 3.4 %; HCT 29.5 % (37.2-46.3); HGB 8.7 g/dL (12.0-15.0); Lymphocytes # (A) 1.32 X 10*3/uL (0.90-5.00); Lymphocytes % (A) 27.9 %; MCH 27.2 pg (27.0-32.0); MCHC 29.5 g/dL (32.0-37.0); MCV 92.2 FL (80.0-97.0); Mean Platelet Volume 9.1 FL (9.5-12.2); Monocytes # (A) 0.63 X 10*3/uL (0.20-1.00); Monocytes % (A) 13.3 %; NRBC Per 100 WBC 0 X 10*3/uL (0.00-0.01); Neutrophils # (A) 2.58 X 10*3/uL (1.80-7.70); Neutrophils % (A) 54.6 %; Platelet Count 276 X 10*3/uL (140-440); RDW 18.4 % (11.5-14.5); WBC 4.73 X 10*3/uL (4.50-10.00)
[2023-10-13] MEDS: METOPROLOL TARTRATE 25 MG TAB PO SCH ×2 (08:49→20:26)
[2023-10-13] MEDS: guaiFENesin 600 MG TABLET.ER PO SCH (08:49)
[2023-10-13] MEDS: VANCOMYCIN 1,250 MG in SODIUM CHLORIDE 0.9% 250 ML IVPB SCH ×2 (08:50→21:38)
[2023-10-13 08:51] LABS: Blood Urea Nitrogen 7.2 mg/dL (9.0-27.0); Calcium 8.2 mg/dL (8.7-10.3); Chloride 102 mmol/L (96-109); Glucose 87 mg/dL (70-110); Potassium 4.7 mmol/L (3.5-5.5); Sodium 140 mmol/L (135-145)
[2023-10-13] MEDS ORDERED: LACTATED RINGERS 1,000 ML IV ONE ×2 (11:50→12:00)
[2023-10-13] MEDS: ONDANSETRON 4 MG/2 ML VIAL ONE ×2 (12:05→12:11)
[2023-10-13] MEDS ORDERED: MIDAZOLAM 2 MG/2 ML VIAL IVP ONE ×2 (12:11→12:25)
[2023-10-13] MEDS ORDERED: fentaNYL (PF) 50 MCG/ML 2 ML AMP IVP ONE (12:11)
[2023-10-13] MEDS ORDERED: ONDANSETRON 4 MG/2 ML VIAL IVP PRN (12:38)
[2023-10-13] MEDS ORDERED: NALOXONE 0.4 MG/ML 1 ML VIAL IV PRN (12:38)
[2023-10-13] MEDS ORDERED: diphenhydrAMINE 50 MG/ML 1 ML VIAL IVP PRN (12:38)
[2023-10-13] MEDS ORDERED: fentaNYL (PF) 50 MCG/ML 2 ML AMP ONE (12:44)
[2023-10-13] MEDS ORDERED: SUCCINYLCHOLINE CHLORIDE 200 MG/10 ML VIAL IV ONE (12:44)
[2023-10-13] MEDS ORDERED: CALCIUM CHLORIDE 100 MG/ML 10 ML SYRINGE ONE (12:44)
[2023-10-13] MEDS ORDERED: PHENYLEPHRINE-0.9% NACL SYG 1,000 MCG/10 ML SYRINGE ONE (12:44)
[2023-10-13] MEDS ORDERED: SUGAMMADEX SODIUM 200 MG/2 ML SDV IV ONE (12:44)
[2023-10-13] MEDS ORDERED: ROCURONIUM 10 MG/ML (5 ML VIAL) IV ONE (12:44)
[2023-10-13] MEDS ORDERED: LIDOCAINE 1% INJ 10MG/ML (20 ML MDV) ONE (12:44)
[2023-10-13] MEDS ORDERED: KETAMINE HCL IN 0.9 % NACL 50 MG/5 ML SYRINGE ONE (12:44)
[2023-10-13] MEDS ORDERED: PROPOFOL 10 MG/ML 20 ML VIAL IV ONE (12:44)
--- NOTE | 2023-10-13 12:45 | P.ANPRN ---
Procedure Note - Anesthesia - Invasive Line Left Arterial Line Time Out Performed: Yes Date of Procedure: 10/13/23 Time of Procedure: 12:28 Location of Patient: PreOp Preparation: Sterile Prep, Sterile Dressing Arterial Line Location: Radial Ultrasound Used: No Purpose - Visualization and Identification of Vasculature: No Image Stored and Saved: No Narrative: Central line placement per sterile protocol utilized.
--- NOTE | 2023-10-13 12:46 | P.ANPRN ---
Procedure Note - Anesthesia - Epidural/Spinal Epidural Continuous Time Out Performed: Yes Date of Procedure: 10/13/23 Procedure Start Time: 12:10 Procedure Stop Time: 12:18 Location of Patient: PreOp Indication: Acute Post-Operative Pain, Analgesia, Requested by Surgeon Sedation Type: Sedate with meaningful contact maintained Preparation: Sterile Dressing Position: Sitting Catheter: Indwelling Needle Guage: 18 Blood Aspirated: No Pain Paresthesia on Injection Noted: No Events: Uneventful and Well Tolerated
[2023-10-13] MEDS ORDERED: ROPIVACAINE 250 MG, fentaNYL (PF) 625 MCG in SODIUM CHLORIDE 0.9% 188 ML EPIDURAL PRN (13:00)
[2023-10-13] MEDS: ceFAZolin 1,000 MG in SODIUM CHLORIDE 0.9% IRRIGATIO 1,000 ML IRRIGATION ONE ×2 (13:49→18:33)
[2023-10-13 14:47] LABS: ABG Base Excess 8.3 mmol/L; ABG HCO3 31 mmol/L (21-25); ABG PCO2 39 mmHg (35-45); ABG PH 7.51 (7.35-7.45); ABG PO2 68 mmHg (83-108); ABG TCO2 33 mmol/L (19-24)
[2023-10-13 14:49] LABS: Allen Test Performed? no
[2023-10-13 16:12] LABS: ABG Base Excess 6.7 mmol/L; ABG HCO3 30 mmol/L (21-25); ABG PCO2 38 mmHg (35-45); ABG PO2 199 mmHg (83-108); ABG TCO2 31 mmol/L (19-24); Allen Test Performed? no
[2023-10-13 16:22] LABS: ALT 11 U/L (4-34); AST 20 U/L (14-36); African American GFR (CKD) >90 (>60 ml/min/1.73 sqM); Albumin 1.7 g/dL (3.5-5.0); Albumin/Globulin Ratio 0.7; Alkaline Phosphatase 66 U/L (38-126); Anion Gap 4 mmol/L; Blood Urea Nitrogen 6 mg/dL (7-17); Calcium 8.5 mg/dL (8.4-10.2); Carbon Dioxide 28 mmol/L (22-30); Chloride 103 mmol/L (98-107); Globulin 2.4 g/dL; Glucose 106 mg/dL (74-99); Non-African American GFR(CKD) >90 (>60 ml/min/1.73 sqM); Potassium 4.2 mmol/L (3.5-5.1); Sodium 135 mmol/L (137-145); Total Bilirubin 0.9 mg/dL (0.2-1.3); Total Protein 4.1 g/dL (6.3-8.2)
[2023-10-13 17:50] LABS: Glucose,Whole Blood 129 mg/dL (70-110)
--- NOTE | 2023-10-13 17:50 | P.OP ---
Date of Procedure: 10/13/23 Preoperative Diagnosis: Non small cell lung carcinoma of the right upper lobe Necrosis and abscess of right middle lobe Postoperative Diagnosis: Same Procedure(s) Performed: 1. Redo Thoracotomy 2. Extensive lysis of adhesions 3. Right middle lobectomy 4. 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 Further work-up revealed no evidence of metastatic disease but because of decent PFT's, young and and good functional status she was offered robotic lobectomy, which was performed in early july. The operation was uncomplicated however post-operatively she developed a unilateral ARDS picture. Middle lobe syndrome was ruled out and eventually she was discharged on abx. She then presented to the hospital with middle lobe asbcess. Despite conervative management, repeat CT revealed worsening necrosis of the middle lobe. Although high risk, redo middle lobectomy was recommended. Operative Findings: Bronchoscopy revealed healthy middle lobe bronchus. Extensive adhesions to mediastinum. Right superior pulmonary vein transected intra-pericardially. Middle lobe branch of the PA taken using endo DOMONIQUE. Middle lobe bronchus taken in-situ with parenchymal staple line. Description of Procedure: The patient underwent arterial line and epidural placement in the pre-operative suite. She was brought back to the operating room and placed in the supine position. General anesthesia was induced and the patient was intubated with a 35F NEDRA. She was positioned in the left lateral decubitus position and her right chest was prepped and draped in the usual sterile fashion. Bronchoscopy was performed to check the double lumen tube placement and for diagnostic purposes. The middle lobe bronchus appeared inflamed but healthy. The upper lobe bronchial stump was healthy, pink and viable. The right lung was isolated. We performed a generous postero-lateral thoracotomy. The latismuss dorsi was divided and serratus anterior spared. The 5th intercostal space was entered and the lung was bluntly taken down from the parietal pleura. We then performed a combination of blunt and sharp lysis of adhesions for approximately 2 hours. Superiorly the lung was adherent to the subclavian artery and some bleeding was encountered here. The subclavian artery was repaired using 3-0 prolene suture. At this point, intra-pericardial control of the superior pulmonary vein was obtained. This was transected using a TA-30 stapler x 2. The phrenic nerve pedicle on the pericardium was isolated and preserved. This dissection was carried towards the hilum but was very difficult. Attention was turned superior where the middle lobe branch of the pulmonary artery was identified encircled and stapled using an endo-DOMONIQUE vascular load stapler. Attention was drawn medially once again and it was difficult to complete the fissure due to such dense adhesions and scar tissue here. As a matter of fact we encountered an injury to the main right pulmonary artery which was repair using 5-0 prolene suture. At this point, the decision was made to transect the middle lobe, most of which was freed up. Unfortunately a black load would not fire across the parenchyma. We then used electrocautery to burn off the upper lobe leaving a margin. We then used 2 black loads of the endo DOMONIQUE to transect the rest of the lobe. This was passed off to pathology. We then copiously irrigated the chest with warm saline and performed cryo ablation of intercostal nerve blocks 3-7. Two chest tubes were placed and the chest was closed in layers of #1 vicryl, 0- PDS, 2-0PDS and isela. The patient received 6 units of blood intra-operatively but was successfully extubated at the end not requiring any vasopressors. She was transported to the CVICU.
[2023-10-13] MEDS ORDERED: DEXTROSE 5%-0.45% NACL 1,000 ML IV SCH (17:52)
[2023-10-13] MEDS ORDERED: METOCLOPRAMIDE 5 MG/ML 2 ML VIAL IVP PRN (17:52)
[2023-10-13] MEDS: PHENYLEPHRINE 40 MG in SODIUM CHLORIDE 0.9% 250 ML IV SCH (18:51)
--- NOTE | 2023-10-13 19:24 | P.PN ---
Subjective Progress Note Date: 10/13/23 I am seeing this patient in consultation today 09/30/2023 for suspected pulmonary abscess. Patient is a 57-year-old white female with past medical history significant for right upper lobe non-small cell lung carcinoma status post robotic-assisted VATS involving a right upper lobectomy on August 19, . She did have a complicated postoperative hospital stay with a persistent right sided pneumothorax and opacification of the right midlung area. She has been closely followed up on an outpatient basis. She does follow Dr. Davey in the pulmonary office, and also had a office visit with Dr. Espino from cardiothoracic surgery on 09/17. She states that she has "not really been 100%" since surgery. More recently she has had symptoms of exertional shortness of breath, right-sided back pain, productive cough with yellow/green sputum sometimes pink tinged, and subjective fevers. She has received courses of Levaquin and doxycycline outpatient. A CT of the chest done 2 days ago demonstrated focal severe consolidation of the right upper lobe measuring 7.7 cm with what appears to be a fluid density concerning for pulmonary abscess. There is an adjacent residual loculated small anterior upper lung pneumothorax measuring 4.5 cm. There is a possible secondary pulmonary abscess or cavitary necrosis with air-fluid level anterior right mid lung measuring 9.2 x 8.2 x 7.4 cm. For this reason, she was directed to the emergency room yesterday. Patient was given doses of Levaquin and vancomycin in the emergency room. She does have a penicillin ALLERGY. Bronchoscopy with BAL done on 08/23/2023 did not identify significant bacterial growth. CBC shows a WBC count of 16, hemoglobin 9.6, hematocrit 30.4, platelets 694. BMP on arrival shows sodium 133, potassium 3.2, chloride 83, serum bicarbonate 34, BUN 12, creatinine 0.5, glucose 112. Normal saline infusing at 130 ML's per hour. Lactic acid level I.9. Patient is currently lying in bed, on 2 L/m nasal cannula, in no acute distress. SPO2 97%. She is slightly tachycardic with a heart rate of 116 bpm. She was febrile with a T-max of 100F. Blood cultures pending. Hemodynamically stable. Patient was seen and examined today on 10/01/23, seems to be doing about the same, continues to have cough and shortness of breath. Cough is productive with thick yellow phlegm. Underwent a bronchoscopy today , please refer to the full operative report. Patient was found to have significant area and secretions coming out of the right middle lobe, mucosa in the right middle lobe was noted to be thick OR edematous, and has quite a bit of abnormal appearance, multiple biopsies from the right lobe bronchus were done, and lavage of the right middle lobe/medial segment was also performed. In the meantime the patient remains on antibiotics, and these will likely be adjusted based on the final culture from the BAL. Patient continues to have leukocytosis with WBC count of 17.9 hemoglobin 8.9, basic metabolic profile is normal Reevaluated today on 10/02/23, patient was seen by interventional radiology yesterday, and she underwent placement of a pigtail catheter into her right lung. Significant purulent drainage is noted into the pleural VAC, chest x-ray is showing improvement, clinically the patient is feeling better, remains on antibiotics, cultures are pending however the Gram stain is showing gram- positive cocci and that is from the pleural effusion fluid. BAL Gram stain is showing moderate PMNs and mixed organisms including gram-negative bacilli and gram-positive cocci. Patient is tolerating antibiotics well, and apparently she had one of placed treatment into the lung. Abscess. Patient refusing to have any more. WBC count is down today to 6.2 from 17.9 hemoglobin is 7.9, basic metabolic profile is normal. Renal profile is normal patient remains in the meantime on vancomycin and on aztreonam. The patient is seen today 10/03/2023 in follow-up on the regular medical floor. She is currently sitting up in a chair at the bedside. Awake and alert in no acute distress. Breathing quite a bit better. Maintaining good O2 saturations in the 90s on room air. She's been afebrile. Hemodynamically stable. Chest x- ray shows improvement in the right-sided empyema. Chest tube remains in place to wall suction. There was another 300 ML's of purulent drainage in the past 24 hours. She did receive alteplase/dornase earlier this morning per CT services. Pleural fluid cultures revealing no growth thus far. Bronchial wash cultures revealing no growth thus far. Sputum culture revealed no growth. White count 5.5. Hemoglobin 7.4. Sodium 136. Potassium 3.4. Bicarb 33. BUN 5. Creatinine 0.52. Glucose 91. She remains on aztreonam and vancomycin. The patient is seen today 10/04/2023 in follow-up on the regular medical floor. She is awake and alert in no acute distress. Sitting up in bed. Maintaining good O2 saturations in the 90s on 4 L/m per nasal cannula. She did undergo bronchoscopy with BAL and biopsies on 10/01/2023. Cytology pending. Pleural fluid cultures are showing gram-positive bacilli. White count 9.2. Hemoglobin 8.1. Platelets 536. Sodium 137. Potassium 3.1. Bicarb 35. BUN 4. Creatinine 0.43. She is continued on aztreonam and vancomycin. Remains on bronchodilators. She does have a productive cough of dark brown colored sputum. Another sputum culture will be sent. Chest x-ray continues to show a small right apical pneumothorax which is increased from prior. There is haziness to the right lung which is unchanged. Pulling about 750 MLS on her incentive spirometer. Right-sided pigtail catheter remains in place to continuous wall suction with approximately 170 ML's of purulent drainage in the past 24 hours. The patient is seen today 10/05/2023 in follow-up on the regular medical floor. She is currently resting in bed. Awake and alert in no acute distress. Feeling a bit better today compared to yesterday. Less cough and congestion. Chest x- ray continues to show a small right apical pneumothorax. Continued haziness to the right lung, pigtail catheter remains in place. Remains to suction. No leak noted. Continued on aztreonam and vancomycin. Pleural fluid culture was positive for gram positive bacilli. Sputum culture pending. Bronchial wash cultures revealed no growth. White count 6.6. Hemoglobin 7.8. Platelets 531. Sodium 138. Potassium 2.4. Bicarb 36. BUN 6. Creatinine 0.39. AST 18. ALT 16. Alk phos 117. Pro-calcitonin 0.15. She continues working well with the incentive spirometer. Continued on bronchodilators. The patient is seen today 10/06/2023 in follow-up on the regular medical floor. She is currently sitting up at the bedside. Maintaining good O2 saturations in the upper 90s on 2 L/m per nasal cannula. Awake and alert in no acute distress. Continues to feel a bit better each day. Still not quite back to her baseline. Chest x-ray reveals stable appearance of the right lung with pneumothorax versus cavitation apex. Small effusion. Pigtail catheter remains in place. Continues to suction. No leak noted. Pleural fluid cultures revealing brevibacterium species. Sodium 144. Potassium 3.3. Bicarb 35. BUN 6. Creatinine 0.4. Glucose 92. She is continued on vancomycin and aztreonam. Continued on bronchodilators. Continued on Mucinex. The patient is seen today 10/07/2023 in follow-up on the regular medical floor. She is awake and alert in no acute distress. Feeling a bit better today compared to yesterday. Maintaining good O2 saturations in the 90s on 2 L per nasal cannula. Normal saline at 20 ML's per hour. Chest x-ray reveals right apical lucency persists which may reflect loculated pneumothorax versus cavitary process. Right midlung field pigtail catheter remains in place overlying the stable opacity. Subpulmonic right basilar effusion. Left lung is clear. Computed tomography scan of the chest revealed residual lung abscess with significant fluid content remaining. There is thickening of the right pectoralis major musculature with some air and possibly fluid within and may relate to developing infection. Pigtail catheter appears to traverse through the chest wall along the inferior margin of this potential collection. Bilateral pleural effusions as mentioned. Hemoglobin 39. Potassium 3.5. Bicarb 30. BUN 9. Creatinine 0.40. She is continued on vancomycin. Completed aztreonam. The patient is seen today 10/08/2023 in follow-up on the regular medical floor. She is sitting up at the bedside. Awake and alert in no acute distress. Denies any worsening shortness of breath, cough or congestion. He is maintaining good O2 saturations in the 90s on 2 L/m per nasal cannula. She is being treated per Brevibacterium found in her pleural fluid. A PICC line was placed yesterday. She is continued on vancomycin. Completed Azactam. Awaiting interventional radiology to discontinue her pigtail catheter. Sodium 138. Potassium 4.0. Bicarb 39. BUN 10. Creatinine 0.43. Glucose 82. Follow-up chest x-ray is unchanged with right thoracotomy tube in place in right apical lucency. She is being followed by CT services and she may require right middle lobectomy. The patient is seen today 10/09/2023 in follow-up on the regular medical floor. She is awake and alert in no acute distress. She is maintaining good O2 saturations in the 90s on 2 L/m per nasal cannula. Right-sided pigtail catheter remains in place to waterseal. She states she is feeling about the same. improvement but no worse. She is continued on DuoNeb inhalations. Remains on antibiotics in the form of vancomycin. Chest x-ray shows stable appearance post lobectomy. Right apical pneumothorax or cavitation is stable. Catheter in good position. Bronchial wash cultures positive for Brunilda. Pleural fluid cultures positive for brevibacterium species. Sputum culture revealed no growth. White count 7.0. Hemoglobin 7.3. Platelets 367. Sodium 144. Potassium 4.5. Bicarb 37. BUN 7. Creatinine 0.4. Glucose 88. The patient is seen today 10/10/2023 in follow-up on the regular medical floor. She is sitting up in bed. Awake and alert in no acute distress. Continues to maintain good O2 saturations in the 90s on 2 L/m per nasal cannula. Chest x-ray is essentially unchanged. Continues with a small right apical pneumothorax post right upper lobectomy. Right-sided pigtail catheter remains in place to waterseal. Minimal drainage. Denies to work well with the incentive spirometer, pulling nearly 1500 ML's. Pleural fluid cultures was positive for Leah bacterium species. Sputum culture revealed no growth. Bronchoalveolar lavage cultures revealed no growth. No new labs. She remains on vancomycin. Continued on bronchodilators, Mucinex. On today's evaluation of 10/11/2023, the patient's is resting comfortably in bed. Patient is currently on 2 L of oxygen by nasal cannula with a pulse ox of 98%. The most recent chest x-ray from today shows a small apical pneumothorax on the right. The left lung is clear. There is a stable hazy right lung capacity with a tube in place. The patient continues to drain purulent material from the right-sided chest tube with this in the order of 20 mL. Approximately 20-40 mL of purulent drainage has been obtained from the right lung and the culture was positive for Brevibacterium species. The antibiotic coverage is with vancomycin. Infectious diseases on the case. The labs were not done today. Most recent labs were reviewed. On today's evaluation of 10/12/2023, the patient is essentially stable and unchanged compared to yesterday. She remains on O2 at 2 L nasal cannula. Output from the right-sided pigtail catheter is minimal at this point in time in the order of 50 mL over the past 12 hours. The patient remains on vancomycin. Repeat CAT scan of the chest was done and there is no significant interval change in the collection involving the right middle lobe. The surgical pigtail catheter in place. The area is measured to be around 7.3 x 5.5 cm in size which is comparable to last measurements. Patchy infiltrate is also seen in the posterior segment of the right lower lobe and a small right-sided pleural effusion and a small left-sided pleural effusion is also present. The patient denies having any pain. The white cell cause of 4.8 with a hemoglobin of 9. BUN is at 8 with a creatinine of 0.46 and a sodium level is at 138. Vancomycin trough levels of 15.2. Surgeries on the case and catheterization for another surgical expiration of the right lung. On 10/13/2023, the patient is being seen in the intensive care unit she is currently postop. The patient was taken to the operating room today and the patient underwent a redo thoracotomy, extensive lysis of adhesions, right middle lobectomy. During the process, there was significant amount of blood loss a total of 6 units of packed RBC and treated for fresh frozen plasma and 1 unit of platelets. She was extubated off when she was transferred to the intensive care unit. Currently she is on a simple mask that will be weaned down to nasal cannula. Her blood pressure is soft around 91/57 and the patient is currently on Jesu-Synephrine at 0.5 mcg/kg/m. She is afebrile. She has 2 right-sided chest tubes in place. The chest x-ray showing probably a tiny right apical pneumothorax. There are postsurgical changes in the right lung. The right hemidiaphragm is slightly elevated and there may be some limited effusion. Chest tubes are all in good location. There is minimal amount of air leak and the apical chest tube. Output from the chest tube has been in the order of 300 mL in each chest tube since arrival from the operating room. I was able to insert a triple-lumen catheter in the right IJ. The patient has adequate pain control for the time being. She is on DuoNeb updrafts. She is on epidural fentanyl and bupivacaine for pain control. She is alert and awake and comm unicating at this point in time. She is slightly lethargic due to her postop state. She remains on vancomycin. Postop labs are pending for now. Objective - Vital Signs Vital signs: Vital Signs Temp 96.9 F L 10/13/23 18:38 Pulse 107 H 10/13/23 18:38 Resp 20 10/13/23 18:38 BP 100/45 10/13/23 18:38 Pulse Ox 97 10/13/23 18:38 FiO2 Intake & Output 10/13/23 10/13/23 10/14/23 06:59 18:59 06:59 Intake Total 0 3930 Output Total 0 3600 Balance 0 330 Intake: IV 2100 Oral 0 Blood Product 1830 Ffp 24 Cpd Unit 0 [id number] Rc As-1 Unit 310 [id number] Rc As-1 Unit 310 [id number] Rc As-1 Unit 310 [id number] Rc As-1 Unit 310 [id number] Rc Irr As1 Unit 310 [id number] Rc Pheresis As-3 Unit 280 [id number] Output: Chest Tube Drainage 0 Chest Tube Right Upper 0 Anterior Chest Urine 600 Estimated Blood Loss 3000 Other: Voiding Method Toilet Bedside Commode # Voids 2 - Exam GENERAL EXAM: Alert, pleasant, fatigued, 57-year-old female, resting in bed, on 2 L nasal cannula, in no apparent distress. HEAD: Normocephalic. EYES: Normal reaction of pupils, equal size. NOSE: Clear with pink turbinates. THROAT: No erythema or exudates. NECK: No masses, no JVD. CHEST: No chest wall deformity. The patient has 2 right-sided chest tubes in pl ronn, intermittent air leak in the right apical chest tube, the surgical one- sided dry clean and intact LUNGS: Equal air entry with crackles in the right lung base. CVS: S1 and S2 normal with no audible murmur, regular rhythm. ABDOMEN: No hepatosplenomegaly, normal bowel sounds, no guarding or rigidity. SPINE: No scoliosis or deformity SKIN: No rashes CENTRAL NERVOUS SYSTEM: No focal deficits, tone is normal in all 4 extremities. EXTREMITIES: There is no peripheral edema. No clubbing, no cyanosis. Peripheral pulses are intact. - Labs CBC & Chem 7: 10/13/23 05:49 10/13/23 15:53 Labs: Abnormal Lab Results - Last 24 Hours (Table) 10/11/23 10/13/23 10/13/23 Range/Units 15:38 05:49 05:49 RBC 3.20 L (4.10-5.20) X 10*6/uL Hgb 8.7 L (12.0-15.0) g/dL Hct 29.5 L (37.2-46.3) % MCHC 29.5 L (32.0-37.0) g/dL RDW 18.4 H (11.5-14.5) % MPV 9.1 L (9.5-12.2) FL ABG pH (7.35-7.45) ABG pO2 (83-108) mmHg ABG HCO3 (21-25) mmol/L ABG Total CO2 (19-24) mmol/L ABG O2 Saturation (94-97) % Sodium (137-145) mmol/L Carbon Dioxide 33.0 H (21.6-31.8) mmol/L BUN 7.2 L (9.0-27.0) mg/dL Creatinine 0.4 L (0.6-1.5) mg/dL Glucose (74-99) mg/dL POC Glucose (mg/dL) (70-110) mg/dL Calcium 8.2 L (8.7-10.3) mg/dL Total Protein (6.3-8.2) g/dL Albumin (3.5-5.0) g/dL Crossmatch See Detail 10/13/23 10/13/23 10/13/23 Range/Units 14:33 15:53 15:59 RBC (4.10-5.20) X 10*6/uL Hgb (12.0-15.0) g/dL Hct (37.2-46.3) % MCHC (32.0-37.0) g/dL RDW (11.5-14.5) % MPV (9.5-12.2) FL ABG pH 7.51 H 7.50 H (7.35-7.45) ABG pO2 68 L 199 H (83-108) mmHg ABG HCO3 31 H 30 H (21-25) mmol/L ABG Total CO2 33 H 31 H (19-24) mmol/L ABG O2 Saturation 100.0 H (94-97) % Sodium 135 L (137-145) mmol/L Carbon Dioxide (21.6-31.8) mmol/L BUN 6 L (9.0-27.0) mg/dL Creatinine 0.33 L (0.6-1.5) mg/dL Glucose 106 H (74-99) mg/dL POC Glucose (mg/dL) (70-110) mg/dL Calcium (8.7-10.3) mg/dL Total Protein 4.1 L (6.3-8.2) g/dL Albumin 1.7 L (3.5-5.0) g/dL Crossmatch 10/13/23 Range/Units 17:49 RBC (4.10-5.20) X 10*6/uL Hgb (12.0-15.0) g/dL Hct (37.2-46.3) % MCHC (32.0-37.0) g/dL RDW (11.5-14.5) % MPV (9.5-12.2) FL ABG pH (7.35-7.45) ABG pO2 (83-108) mmHg ABG HCO3 (21-25) mmol/L ABG Total CO2 (19-24) mmol/L ABG O2 Saturation (94-97) % Sodium (137-145) mmol/L Carbon Dioxide (21.6-31.8) mmol/L BUN (9.0-27.0) mg/dL Creatinine (0.6-1.5) mg/dL Glucose (74-99) mg/dL POC Glucose (mg/dL) 129 H (70-110) mg/dL Calcium (8.7-10.3) mg/dL Total Protein (6.3-8.2) g/dL Albumin (3.5-5.0) g/dL Crossmatch Assessment and Plan Plan: Thoracotomy with extensive lysis of adhesions and right middle lobectomy. The patient is postop day #0. Surgery was done on 10/13/2023 and the patient is currently in the intensive care unit. Patient has 2 right-sided chest tubes in place. There was significant amount of blood loss and the patient's is a total of 6 units of packed RBC, 2 units of fresh frozen and 1 unit of platelets. Hypotension, currently on low-dose Jesu-Synephrine for blood pressure control. The patient is also on normal saline at the rate of 100 mL an hour. Non-small cell lung cancer status post right upper lobectomy, done on 08/19/2023. Two regional hilar lymph nodes were positive for metastasis. No other lymph nodes involved. The patient had T2b N 1 M0 disease. Persistent postop right apical pneumothorax, improved Right lung abscess, A CT of the chest 09/28/2023 demonstrated focal severe consolidation of the right upper lobe measuring 7.7 cm with what appears to be a fluid density concerning for pulmonary abscess. Pleural fluid culture positive for gram positive bacilli/brevibacterium species. Remains on vancomycin. Follow-up computed tomography scan today 10/07/2023 continues to show a residual lung abscess measuring approximate 6.0 x 5.0 cm, previously 8.2 x 7.4 cm's. Leukocytosis, improved Normocytic normochromic anemia, without any obvious blood loss Chronic obstructive pulmonary disease, with a FEV1 53% of predicted, stable. Former tobacco dependence Plan: Aggressive pulmonary toileting Daily chest x-ray Monitor upper from the chest tubes Pain control with epidural fentanyl and bupivacaine Jesu-Synephrine to be titrated to keep immunosuppression above 65 IV fluids with normal sed rate of 100 mL an hour Blood products per thoracic surgery Triple-lumen catheter was inserted Continue vancomycin We'll keep the patient intensive care unit for now. Titrate oxygen flow to maintain a saturation above 90% Critical care evaluation that was on a more than 30 minutes. Family has been updated. We will continue to follow
--- NOTE | 2023-10-13 19:25 | P.PCN ---
Date of Procedure: 10/13/23 Operative Findings: Procedure(s) Performed: central line insertion Anesthesia: local Surgeon: Liv Flaherty Estimated Blood Loss (ml): 0 Pathology: none sent Condition: critical Disposition: ICU Operative Findings: Indication: Hemodynamic monitoring/Intravenous access. A time-out was completed verifying correct patient, procedure, site, positioning, and implant(s) or special equipment if applicable. The patient was placed in a dependent position appropriate for central line placement based on the vein to be cannulated. The patients neck was prepped and draped in sterile fashion. 1% Lidocaine was used to anesthetize the surrounding skin area. A triple lumen 9F Cordis catheter was introduced into the Right IJ vein using Seldinger technique. The catheter was threaded smoothly over the guide wire and appropriate blood return was obtained. Each lumen of the catheter was evacuated of air and flushed with sterile saline. The catheter was then sutured in place to the skin and a sterile dressing applied. Perfusion to the extremity distal to the point of catheter insertion was checked and found to be adequate. The patient tolerated the procedure well and there were no complications.
--- NOTE | 2023-10-13 19:41 | XR ---
EXAM: XR chest 1V portable CLINICAL INDICATION:Female, 57 years old with history of central line placement; [facility] COMPARISON: Chest x-ray 10/11/[address] chest 10/12/2023 TECHNIQUE: Chest single view. FINDINGS: Lines/tubes/devices: Large bore right chest tubes X2 with tips near the lung apex and lung base. Righ t IJ central venous line with tip over the upper to mid right atrium. Left arm PICC line with its tip over the SVC. EKG leads and other extrinsic densities overlie the chest. Cardiomediastinum: Cardiac silhouette appears stable, normal in size Slight shift of mediastinal structures towards the right. Vasculature: No increased pulmonary vasculature. Lungs/pleura: Increased volume loss in the right chest, likely postoperative, with suture chains and overlying skin isela now present. Right-sided hydropneumothorax appears decreased, with small residual apical pne umothorax. Mild right basilar infiltrate or atelectasis. Left lung appears stable. Bones/soft tissues: Bony thorax appears grossly intact as seen. Small amounts of soft tissue emphysema in the right chest wall. IMPRESSION: Lines and tubes in place, as above. Increased volume loss in the right chest, likely postoperative, with suture chains and overlying skin isela now present. Right-sided hydropneumothorax appears decreased, with small residual apical pneumothorax. Mild right basilar infiltrate or atelectasis. Small amounts of soft tissue emphysema in the right chest wall.
[2023-10-13 19:57] LABS: Basophils % (A) 0 %; Eosinophils % (A) 0 %; HCT 40.9 % (34.0-46.0); Hypochromasia Slight; Lymphocytes # (A) 1.3 k/uL (1.0-4.8); Lymphocytes % (A) 5 %; MCH 29.8 pg (25.0-35.0); MCHC 32.7 g/dL (31.0-37.0); MCV 91.2 fL (80.0-100.0); Mean Platelet Volume 6.8; Monocytes # (A) 0.8 k/uL (0-1.0); Monocytes % (A) 3 %; Neutrophils # (A) 22.8 k/uL (1.3-7.7); Neutrophils % (A) 91 %; Platelet Count 280 k/uL (150-450); Poikilocytosis Slight; RBC 4.48 m/uL (3.80-5.40); RDW 15.7 % (11.5-15.5); WBC 25.1 k/uL (3.8-10.6)
[2023-10-13 19:58] LABS: HGB 13.4 gm/dL (11.4-16.0)
[2023-10-13 19:59] LABS: African American GFR (CKD) >90 (>60 ml/min/1.73 sqM); Anion Gap 6 mmol/L; Blood Urea Nitrogen 9 mg/dL (7-17); Calcium 8.3 mg/dL (8.4-10.2); Carbon Dioxide 27 mmol/L (22-30); Chloride 102 mmol/L (98-107); Glucose 164 mg/dL (74-99); Non-African American GFR(CKD) >90 (>60 ml/min/1.73 sqM); Potassium 4.6 mmol/L (3.5-5.1); Sodium 135 mmol/L (137-145)
[2023-10-13] MEDS ORDERED: FUROSEMIDE 10 MG/ML 2 ML VIAL IV ONE (20:26)
[2023-10-13] MEDS: FORMOTEROL FUMARATE 20 MCG/2 ML NEBU INHALATION SCH (20:28)
[2023-10-14] MEDS: HEPARIN SODIUM,PORCINE 5,000 UNIT/ML 1 ML VIAL SQ SCH ×4 (00:26→23:39)
[2023-10-14 00:47] LABS: Mean Platelet Volume 7.3; Platelet Count 301 k/uL (150-450)
[2023-10-14] MEDS ORDERED: HYDROmorphone 1 MG/ML 1 ML SYRINGE IVP STA (02:41)
[2023-10-14 05:26] LABS: Anisocytosis Slight; Basophils # (A) 0.1 k/uL (0-0.2); Basophils % (A) 0 %; Eosinophils # (A) 0.1 k/uL (0-0.7); Eosinophils % (A) 1 %; HCT 29.7 % (34.0-46.0); Hypochromasia Slight; Lymphocytes # (A) 1.5 k/uL (1.0-4.8); Lymphocytes % (A) 8 %; MCH 29.6 pg (25.0-35.0); MCHC 33.6 g/dL (31.0-37.0); Mean Platelet Volume 7.6; Monocytes # (A) 0.7 k/uL (0-1.0); Monocytes % (A) 4 %; Neutrophils # (A) 15.6 k/uL (1.3-7.7); Neutrophils % (A) 86 %; Platelet Count 246 k/uL (150-450); Poikilocytosis Moderate; RBC 3.37 m/uL (3.80-5.40); RDW 16.9 % (11.5-15.5); WBC 18.3 k/uL (3.8-10.6)
--- NOTE | 2023-10-14 05:26 | P.PN ---
Subjective Progress Note Date: 10/13/23 Patient evaluated on medical floor. Pigtail catheter remains in place with 20 mls of output documented overnight. Patient continues with productive cough brown tinged sputum and repeat sputum culture has been sent and pending at this time. Chest xray today reveals cavitation vs. pneumothorax right apex. Small effusion may be present. Bronchial washings reveal inflammation, negative for diagnostic malignancy. Patient does have known NSCLC. Remains on IV aztreonam and IV vancomycin. Procalcitonin level 0.15. 10/06/2023 Patient evaluated sitting up in bed. No drainage noted from [facility] overnight. P igtail catheter remains n place. Chest xray today reveals stable appearance right lung with pneumothorax vs. cavitation apex. Small effusion may be present. Repeat sputum culture final showing normal hubert. The pleural fluid is finalized showing brevibacterium species. 10/07/2023 Patient is evaluated today sitting up in bed. Legs are swollen, patient has been receiving IV fluids which will be stopped. IV lasix x 1 will be given and recommending SCDs for this. Edema is non pitting. Patient had chest xray this AM showing possible loculated pneumothorax vs. cavitary process. Subpulmonic right basilar effusion. The left lung is clear. Pigtail catheter remains in place again minimal to no drainage overnight. CT following closely. Repeat sputum showing normal hubert. Remains on IV antibiotics. Patient remains on room air. 10/08/[address] yesterday showing residual lung abscess with significant fluid content remaining. Thickening of the right pectoralis major muscle with s ome air and possibly fluid within and may relate to developing infection in this location. Pigtail catheter remains in place. Bilateral pleural effusions. Small left and moderate right pleural effusion. Sodium 139, renal function stable. 10/09/2023 Patient evaluated today sitting up in bed. Lower extremity edema is improved after a second dose of IV lasix, remains off fluids she is eating and drinking well. BENJAMÍN hose to be applied today should help with the swelling as well. Patient continues with the pigtail catheter which has had minimal drainage over the last 2 days. Patient will be going for thoracotomy and right middle lobectomy on Wednesday. Patient remains on IV vancomycin per ID and PICC line is in place. 10/10/2023 Patient evaluated today sitting up in bed. Remains on 2L of oxygen. Lower extremity edema improved. Continues on IV vancomycin. Pending repeat chest xray reports. Cardiothoracic following closely patient will go for right middle lobectomy and thoracotomy on Wednesday. 10/13/2023 Patient is seen in follow-up this morning currently nothing by mouth as she is scheduled to undergo thoracotomy with right middle lobectomy with CT surgery. Pulmonary following closely patient continues on 2 L of oxygen along with antibiotics. Plan is for going to ICU postop and will await surgical report. Patient is sitting up with multiple family members at bedside with questions and concerns were answered to the best of our ability. Patient is currently afebrile with no reports of worsening shortness of breath. Patient denies any nausea or vomiting and currently nothing by mouth for the procedure. Review of Systems Constitutional: Denied any fatigue denied any fever. Cardio vascular: denied any chest pain, palpitations Gastrointestinal: denied any nausea, vomiting, diarrhea Pulmonary: Reports shortness of breath and productive cough. But no worse Neurologic denied any new focal deficits All medications were reviewed PHYSICAL EXAMINATION: GENERAL: The patient is alert and oriented x3, . Well developed, well nourished. HEENT: Pupils are round and equally reacting to light. EOMI. No scleral icterus. No conjunctival pallor. Normocephalic, atraumatic. No pharyngeal erythema. No thyromegaly. CARDIOVASCULAR: S1 and S2 muffled PULMONARY: Crackles in the right lung base. Right thoracotomy tube in place. ABDOMEN: Soft, nontender, nondistended, normoactive bowel sounds. No palpable organomegaly. MUSCULOSKELETAL: No joint swelling or deformity. EXTREMITIES: No cyanosis, clubbing +1 peripheral edema/ankle edema non pitting. NEUROLOGICAL: Gross neurological examination did not reveal any focal deficits. SKIN: No rashes. Assessment: Pneumonia with possible lung abscess, status post bronchoscopy, scheduled to undergo lobectomy on the right today 10/13/2023 Rule out Cavitary lung lesion/pulmonary abscess s/p pigtail catheter placement and lytic instillation Non-small cell lung cancer status post right upper lobectomy, done on 08/19/2023. Residual right apical loculated pneumothorax s/p lobectomy Peripheral edema likely due to continued hydration patient is eating drinking appropriately. Will stop IV fluids. Hypokalemia, improving Normocytic anemia Chronic obstructive pulmonary disease History of asthma Hyperlipidemia history Former smoker GI prophylaxiss Full Code Plan: Continue antibiotics in the form of IV vancomycin. The bronchial washings are negative for malignancy and sputum showing gram positive. Repeat sputum culture showing normal hubert. Pigtail catheter remains in place, cardiothoracic services following closely with plans to have thoracotomy and right middle lobectomy today. Currently nothing by mouth and will await surgical report. Most likely to the ICU postop Continue BENJAMÍN hose and to elevate lower extremities while sitting. Continue to encourage incentive spirometer 10 x an hour while awake. Increase activity level. Will need extensive PT/OT therapy postoperatively once cleared by CT surgery Repeat labs along with chest x-ray in the a.m. Due to multiple complex medical issues, prognosis is guarded The impression and plan of care has been dictated by Pamela Bryant, Nurse Pract itioner as directed. Dr. Baldev MD I have performed a history and examination and MDM of this patient, discussed the same with the dictator, and agree with the dictator's assessment and plan as written ,documented as a scribe. Based on total visit time, I have performed more than 50% of the visit. Objective - Vital Signs Vital signs: Vital Signs Temp 98.3 F 10/14/23 04:00 Pulse 94 10/14/23 05:00 Resp 22 10/14/23 05:00 BP 89/52 10/14/23 05:00 Pulse Ox 94 L 10/14/23 05:00 FiO2 Intake & Output 10/13/23 10/13/23 10/14/23 06:59 18:59 06:59 Intake Total 0 3953 1184.535 Output Total 0 3720 1515 Balance 0 233 -330.465 Intake: IV 2123 44 LR 20 20 Pressure bag 3 24 Intake, IV Titration 148.535 Amount Phenylephrine 40 mg In 123.868 Sodium Chloride 0.9% 250 ml @ 0.5 MCG/KG/MIN 12. 184 mls/hr IV .[id number] [facility] Rx#:[id number] Ropivacaine 250 mg 24.667 fentaNYL (PF) 625 mcg In Sodium Chloride 0.9% 188 ml @ Per Protocol EPIDURAL .Q0M PRN Rx#: [id number] Oral 0 Blood Product 1830 992 Ffp 24 Cpd Unit 0 369 [id number] Ffp 24 Cpd Unit 359 [id number] Platelet Pheresis Pas 264 Psoralen Unit [id number] Rc As-1 Unit 310 [id number] Rc As-1 Unit 310 [id number] Rc As-1 Unit 310 [id number] Rc As-1 Unit 310 [id number] Rc Irr As1 Unit 310 [id number] Rc Pheresis As-3 Unit 280 [id number] Output: Chest Tube Drainage 0 95 540 Chest Tube Right Upper 0 Anterior Chest R. Chest Tube - A 30 300 R. Chest Tube - B 65 240 Urine 625 975 Estimated Blood Loss 3000 Other: Voiding Method Toilet Indwelling Catheter Bedside Commode # Voids 2 ABP, PAP, CO, CI - Last Documented Arterial Blood Pressure 92/53 - Labs CBC & Chem 7: 10/14/23 00:30 10/13/23 19:26 Labs: Abnormal Lab Results - Last 24 Hours (Table) 10/11/23 10/13/23 10/13/23 Range/Units 15:38 05:49 05:49 WBC (3.8-10.6) k/uL RBC 3.20 L (4.10-5.20) X 10*6/uL Hgb 8.7 L (12.0-15.0) g/dL Hct 29.5 L (37.2-46.3) % MCHC 29.5 L (32.0-37.0) g/dL RDW 18.4 H (11.5-14.5) % MPV 9.1 L (9.5-12.2) FL Neutrophils # (1.3-7.7) k/uL ABG pH (7.35-7.45) ABG pO2 (83-108) mmHg ABG HCO3 (21-25) mmol/L ABG Total CO2 (19-24) mmol/L ABG O2 Saturation (94-97) % Sodium (137-145) mmol/L Carbon Dioxide 33.0 H (21.6-31.8) mmol/L BUN 7.2 L (9.0-27.0) mg/dL Creatinine 0.4 L (0.6-1.5) mg/dL Glucose (74-99) mg/dL POC Glucose (mg/dL) (70-110) mg/dL Calcium 8.2 L (8.7-10.3) mg/dL Total Protein (6.3-8.2) g/dL Albumin (3.5-5.0) g/dL Crossmatch See Detail 10/13/23 10/13/23 10/13/23 Range/Units 14:33 15:53 15:59 WBC (3.8-10.6) k/uL RBC (4.10-5.20) X 10*6/uL Hgb (12.0-15.0) g/dL Hct (37.2-46.3) % MCHC (32.0-37.0) g/dL RDW (11.5-14.5) % MPV (9.5-12.2) FL Neutrophils # (1.3-7.7) k/uL ABG pH 7.51 H 7.50 H (7.35-7.45) ABG pO2 68 L 199 H (83-108) mmHg ABG HCO3 31 H 30 H (21-25) mmol/L ABG Total CO2 33 H 31 H (19-24) mmol/L ABG O2 Saturation 100.0 H (94-97) % Sodium 135 L (137-145) mmol/L Carbon Dioxide (21.6-31.8) mmol/L BUN 6 L (9.0-27.0) mg/dL Creatinine 0.33 L (0.6-1.5) mg/dL Glucose 106 H (74-99) mg/dL POC Glucose (mg/dL) (70-110) mg/dL Calcium (8.7-10.3) mg/dL Total Protein 4.1 L (6.3-8.2) g/dL Albumin 1.7 L (3.5-5.0) g/dL Crossmatch 10/13/23 10/13/23 10/13/23 Range/Units 17:49 19:26 19:26 WBC 25.1 H (3.8-10.6) k/uL RBC (4.10-5.20) X 10*6/uL Hgb (12.0-15.0) g/dL Hct (37.2-46.3) % MCHC (32.0-37.0) g/dL RDW 15.7 H (11.5-14.5) % MPV (9.5-12.2) FL Neutrophils # 22.8 H (1.3-7.7) k/uL ABG pH (7.35-7.45) ABG pO2 (83-108) mmHg ABG HCO3 (21-25) mmol/L ABG Total CO2 (19-24) mmol/L ABG O2 Saturation (94-97) % Sodium 135 L (137-145) mmol/L Carbon Dioxide (21.6-31.8) mmol/L BUN (9.0-27.0) mg/dL Creatinine 0.41 L (0.6-1.5) mg/dL Glucose 164 H (74-99) mg/dL POC Glucose (mg/dL) 129 H (70-110) mg/dL Calcium 8.3 L (8.7-10.3) mg/dL Total Protein (6.3-8.2) g/dL Albumin (3.5-5.0) g/dL Crossmatch
[2023-10-14 05:46] LABS: African American GFR (CKD) >90 (>60 ml/min/1.73 sqM); Anion Gap 5 mmol/L; Blood Urea Nitrogen 13 mg/dL (7-17); Calcium 7.7 mg/dL (8.4-10.2); Carbon Dioxide 28 mmol/L (22-30); Chloride 101 mmol/L (98-107); Glucose 115 mg/dL (74-99); Non-African American GFR(CKD) >90 (>60 ml/min/1.73 sqM); Potassium 4.1 mmol/L (3.5-5.1); Sodium 134 mmol/L (137-145)
[2023-10-14] MEDS ORDERED: KETOROLAC 15 MG/ML 1 ML VIAL IVP STA (06:45)
[2023-10-14] MEDS: PANTOPRAZOLE 40 MG TABLET PO SCH (06:57)
--- NOTE | 2023-10-14 07:01 | P.PN ---
Progress Note - Text Progress Note Date: 10/14/23 Patient was seen and evaluated at bedside. Postop day # 1 status post Redo Thoracotomy,and Right middle lobectomy . Epidural is running at the rate of 7 mL per hour. Patient is comfortably lying on the bed. Rated pain levels are 5-6 out of 10 in severity. Moving extremities well without any difficulty. He denied any red flag symptoms, pain over the catheter site. On examination and noticed sensation difference in her thoracic area with cold sensation. But unable to increase her epidural solution secondary to her blood pressure issues. Physical exam: Vital signs: stable, afebrile Catheter site: Clean, and intact Dressing. no tenderness over the catheter area. Moving lower extremities without difficulty. Assessment: Acute postoperative pain secondary to Redo Thoracotomy,and Right middle lobectomy . Plan: Continue epidural infusion solution of at the rate of 7 mL per hour. Continue Dilaudid 0.5 mg IV push every 4 hours as needed for breakthrough pain, until her blood pressure improved so that we can increase her epidural. Call anesthesia as needed
[2023-10-14] MEDS: PHENYLEPHRINE 40 MG in SODIUM CHLORIDE 0.9% 250 ML IV SCH ×3 (07:15→22:35)
[2023-10-14] MEDS: IPRATROPIUM-ALBUTEROL 3 ML NEB INHALATION SCH ×4 (07:34→20:17)
[2023-10-14] MEDS: FORMOTEROL FUMARATE 20 MCG/2 ML NEBU INHALATION SCH ×2 (07:34→20:17)
--- NOTE | 2023-10-14 07:51 | XR ---
EXAMINATION TYPE: XR chest 1V portable DATE OF EXAM: 10/14/2023 HISTORY: Shortness of breath. COMPARISON: 10/13/2023 TECHNIQUE: Single view of the chest is submitted. FINDINGS: Demonstrated are scattered senescent parenchymal change. Two Right-sided chest tube is unchanged in position. Right IJ central venous line. Right-sided tests skin isela. Right apical thickening and scattered infiltrates throughout the right lung. The heart is stable. Hilar and mediastinal structures are within normal limits. Degenerative changes are seen of the dorsal spine. IMPRESSION: 1. Essentially stable postoperative chest.
[2023-10-14] MEDS: METOPROLOL TARTRATE 25 MG TAB PO SCH (08:13)
[2023-10-14] MEDS: ACETAMINOPHEN IV (For NPO) 1,000 MG in EMPTY BAG 1 BAG IVPB SCH ×3 (08:46→20:10)
[2023-10-14] MEDS: VANCOMYCIN 1,250 MG in SODIUM CHLORIDE 0.9% 250 ML IVPB SCH ×2 (08:47→20:10)
[2023-10-14] MEDS ORDERED: ROPIVACAINE 250 MG, fentaNYL (PF) 1,250 MCG in SODIUM CHLORIDE 0.9% 175 ML EPIDURAL PRN (08:57)
--- NOTE | 2023-10-14 10:15 | P.PN ---
Subjective Progress Note Date: 10/14/23 I am seeing this patient in consultation today 09/30/2023 for suspected pulmonary abscess. Patient is a 57-year-old white female with past medical history significant for right upper lobe non-small cell lung carcinoma status post robotic-assisted VATS involving a right upper lobectomy on August 19, . She did have a complicated postoperative hospital stay with a persistent right sided pneumothorax and opacification of the right midlung area. She has been closely followed up on an outpatient basis. She does follow Dr. Davey in the pulmonary office, and also had a office visit with Dr. Espino from cardiothoracic surgery on 09/17. She states that she has "not really been 100%" since surgery. More recently she has had symptoms of exertional shortness of breath, right-sided back pain, productive cough with yellow/green sputum sometimes pink tinged, and subjective fevers. She has received courses of Levaquin and doxycycline outpatient. A CT of the chest done 2 days ago demonstrated focal severe consolidation of the right upper lobe measuring 7.7 cm with what appears to be a fluid density concerning for pulmonary abscess. There is an adjacent residual loculated small anterior upper lung pneumothorax measuring 4.5 cm. There is a possible secondary pulmonary abscess or cavitary necrosis with air-fluid level anterior right mid lung measuring 9.2 x 8.2 x 7.4 cm. For this reason, she was directed to the emergency room yesterday. Patient was given doses of Levaquin and vancomycin in the emergency room. She does have a penicillin ALLERGY. Bronchoscopy with BAL done on 08/23/2023 did not identify significant bacterial growth. CBC shows a WBC count of 16, hemoglobin 9.6, hematocrit 30.4, platelets 694. BMP on arrival shows sodium 133, potassium 3.2, chloride 83, serum bicarbonate 34, BUN 12, creatinine 0.5, glucose 112. Normal saline infusing at 130 ML's per hour. Lactic acid level I.9. Patient is currently lying in bed, on 2 L/m nasal cannula, in no acute distress. SPO2 97%. She is slightly tachycardic with a heart rate of 116 bpm. She was febrile with a T-max of 100F. Blood cultures pending. Hemodynamically stable. Patient was seen and examined today on 10/01/23, seems to be doing about the same, continues to have cough and shortness of breath. Cough is productive with thick yellow phlegm. Underwent a bronchoscopy today , please refer to the full operative report. Patient was found to have significant area and secretions coming out of the right middle lobe, mucosa in the right middle lobe was noted to be thick [place] edematous, and has quite a bit of abnormal appearance, multiple biopsies from the right lobe bronchus were done, and lavage of the right middle lobe/medial segment was also performed. In the meantime the patient remains on antibiotics, and these will likely be adjusted based on the final culture from the BAL. Patient continues to have leukocytosis with WBC count of 17.9 hemoglobin 8.9, basic metabolic profile is normal Reevaluated today on 10/02/23, patient was seen by interventional radiology yesterday, and she underwent placement of a pigtail catheter into her right lung. Significant purulent drainage is noted into the pleural VAC, chest x-ray is showing improvement, clinically the patient is feeling better, remains on antibiotics, cultures are pending however the Gram stain is showing gram- positive cocci and that is from the pleural effusion fluid. BAL Gram stain is showing moderate PMNs and mixed organisms including gram-negative bacilli and gram-positive cocci. Patient is tolerating antibiotics well, and apparently she had one of placed treatment into the lung. Abscess. Patient refusing to have any more. WBC count is down today to 6.2 from 17.9 hemoglobin is 7.9, basic metabolic profile is normal. Renal profile is normal patient remains in the meantime on vancomycin and on aztreonam. The patient is seen today 10/03/2023 in follow-up on the regular medical floor. She is currently sitting up in a chair at the bedside. Awake and alert in no acute distress. Breathing quite a bit better. Maintaining good O2 saturations in the 90s on room air. She's been afebrile. Hemodynamically stable. Chest x- ray shows improvement in the right-sided empyema. Chest tube remains in place to wall suction. There was another 300 ML's of purulent drainage in the past 24 hours. She did receive alteplase/dornase earlier this morning per CT services. Pleural fluid cultures revealing no growth thus far. Bronchial wash cultures revealing no growth thus far. Sputum culture revealed no growth. White count 5.5. Hemoglobin 7.4. Sodium 136. Potassium 3.4. Bicarb 33. BUN 5. Creatinine 0.52. Glucose 91. She remains on aztreonam and vancomycin. The patient is seen today 10/04/2023 in follow-up on the regular medical floor. She is awake and alert in no acute distress. Sitting up in bed. Maintaining good O2 saturations in the 90s on 4 L/m per nasal cannula. She did undergo bronchoscopy with BAL and biopsies on 10/01/2023. Cytology pending. Pleural fluid cultures are showing gram-positive bacilli. White count 9.2. Hemoglobin 8.1. Platelets 536. Sodium 137. Potassium 3.1. Bicarb 35. BUN 4. Creatinine 0.43. She is continued on aztreonam and vancomycin. Remains on bronchodilators. She does have a productive cough of dark brown colored sputum. Another sputum culture will be sent. Chest x-ray continues to show a small right apical pneumothorax which is increased from prior. There is haziness to the right lung which is unchanged. Pulling about 750 MLS on her incentive spirometer. Right-sided pigtail catheter remains in place to continuous wall suction with approximately 170 ML's of purulent drainage in the past 24 hours. The patient is seen today 10/05/2023 in follow-up on the regular medical floor. She is currently resting in bed. Awake and alert in no acute distress. Feeling a bit better today compared to yesterday. Less cough and congestion. Chest x- ray continues to show a small right apical pneumothorax. Continued haziness to the right lung, pigtail catheter remains in place. Remains to suction. No leak noted. Continued on aztreonam and vancomycin. Pleural fluid culture was positive for gram positive bacilli. Sputum culture pending. Bronchial wash cultures revealed no growth. White count 6.6. Hemoglobin 7.8. Platelets 531. Sodium 138. Potassium 2.4. Bicarb 36. BUN 6. Creatinine 0.39. AST 18. ALT 16. Alk phos 117. Pro-calcitonin 0.15. She continues working well with the incentive spirometer. Continued on bronchodilators. The patient is seen today 10/06/2023 in follow-up on the regular medical floor. She is currently sitting up at the bedside. Maintaining good O2 saturations in the upper 90s on 2 L/m per nasal cannula. Awake and alert in no acute distress. Continues to feel a bit better each day. Still not quite back to her baseline. Chest x-ray reveals stable appearance of the right lung with pneumothorax versus cavitation apex. Small effusion. Pigtail catheter remains in place. Continues to suction. No leak noted. Pleural fluid cultures revealing brevibacterium species. Sodium 144. Potassium 3.3. Bicarb 35. BUN 6. Creatinine 0.4. Glucose 92. She is continued on vancomycin and aztreonam. Continued on bronchodilators. Continued on Mucinex. The patient is seen today 10/07/2023 in follow-up on the regular medical floor. She is awake and alert in no acute distress. Feeling a bit better today compared to yesterday. Maintaining good O2 saturations in the 90s on 2 L per nasal cannula. Normal saline at 20 ML's per hour. Chest x-ray reveals right apical lucency persists which may reflect loculated pneumothorax versus cavitary process. Right midlung field pigtail catheter remains in place overlying the stable opacity. Subpulmonic right basilar effusion. Left lung is clear. Computed tomography scan of the chest revealed residual lung abscess with significant fluid content remaining. There is thickening of the right pectoralis major musculature with some air and possibly fluid within and may relate to developing infection. Pigtail catheter appears to traverse through the chest wall along the inferior margin of this potential collection. Bilateral pleural effusions as mentioned. Hemoglobin 39. Potassium 3.5. Bicarb 30. BUN 9. Creatinine 0.40. She is continued on vancomycin. Completed aztreonam. The patient is seen today 10/08/2023 in follow-up on the regular medical floor. She is sitting up at the bedside. Awake and alert in no acute distress. Denies any worsening shortness of breath, cough or congestion. He is maintaining good O2 saturations in the 90s on 2 L/m per nasal cannula. She is being treated per Brevibacterium found in her pleural fluid. A PICC line was placed yesterday. She is continued on vancomycin. Completed Azactam. Awaiting interventional radiology to discontinue her pigtail catheter. Sodium 138. Potassium 4.0. Bicarb 39. BUN 10. Creatinine 0.43. Glucose 82. Follow-up chest x-ray is unchanged with right thoracotomy tube in place in right apical lucency. She is being followed by CT services and she may require right middle lobectomy. The patient is seen today 10/09/2023 in follow-up on the regular medical floor. She is awake and alert in no acute distress. She is maintaining good O2 saturations in the 90s on 2 L/m per nasal cannula. Right-sided pigtail catheter remains in place to waterseal. She states she is feeling about the same. improvement but no worse. She is continued on DuoNeb inhalations. Remains on antibiotics in the form of vancomycin. Chest x-ray shows stable appearance post lobectomy. Right apical pneumothorax or cavitation is stable. Catheter in good position. Bronchial wash cultures positive for Brunilda. Pleural fluid cultures positive for brevibacterium species. Sputum culture revealed no growth. White count 7.0. Hemoglobin 7.3. Platelets 367. Sodium 144. Potassium 4.5. Bicarb 37. BUN 7. Creatinine 0.4. Glucose 88. The patient is seen today 10/10/2023 in follow-up on the regular medical floor. She is sitting up in bed. Awake and alert in no acute distress. Continues to maintain good O2 saturations in the 90s on 2 L/m per nasal cannula. Chest x-ray is essentially unchanged. Continues with a small right apical pneumothorax post right upper lobectomy. Right-sided pigtail catheter remains in place to waterseal. Minimal drainage. Denies to work well with the incentive spirometer, pulling nearly 1500 ML's. Pleural fluid cultures was positive for Leah bacterium species. Sputum culture revealed no growth. Bronchoalveolar lavage cultures revealed no growth. No new labs. She remains on vancomycin. Continued on bronchodilators, Mucinex. On today's evaluation of 10/11/2023, the patient's is resting comfortably in bed. Patient is currently on 2 L of oxygen by nasal cannula with a pulse ox of 98%. The most recent chest x-ray from today shows a small apical pneumothorax on the right. The left lung is clear. There is a stable hazy right lung capacity with a tube in place. The patient continues to drain purulent material from the right-sided chest tube with this in the order of 20 mL. Approximately 20-40 mL of purulent drainage has been obtained from the right lung and the culture was positive for Brevibacterium species. The antibiotic coverage is with vancomycin. Infectious diseases on the case. The labs were not done today. Most recent labs were reviewed. On today's evaluation of 10/12/2023, the patient is essentially stable and unchanged compared to yesterday. She remains on O2 at 2 L nasal cannula. Output from the right-sided pigtail catheter is minimal at this point in time in the order of 50 mL over the past 12 hours. The patient remains on vancomycin. Repeat CAT scan of the chest was done and there is no significant interval change in the collection involving the right middle lobe. The surgical pigtail catheter in place. The area is measured to be around 7.3 x 5.5 cm in size which is comparable to last measurements. Patchy infiltrate is also seen in the posterior segment of the right lower lobe and a small right-sided pleural effusion and a small left-sided pleural effusion is also present. The patient denies having any pain. The white cell cause of 4.8 with a hemoglobin of 9. BUN is at 8 with a creatinine of 0.46 and a sodium level is at 138. Vancomycin trough levels of 15.2. Surgeries on the case and catheterization for another surgical expiration of the right lung. On 10/13/2023, the patient is being seen in the intensive care unit she is currently postop. The patient was taken to the operating room today and the patient underwent a redo thoracotomy, extensive lysis of adhesions, right middle lobectomy. During the process, there was significant amount of blood loss a total of 6 units of packed RBC and treated for fresh frozen plasma and 1 unit of platelets. She was extubated off when she was transferred to the intensive care unit. Currently she is on a simple mask that will be weaned down to nasal cannula. Her blood pressure is soft around 91/57 and the patient is currently on Jesu-Synephrine at 0.5 mcg/kg/m. She is afebrile. She has 2 right-sided chest tubes in place. The chest x-ray showing probably a tiny right apical pneumothorax. There are postsurgical changes in the right lung. The right hemidiaphragm is slightly elevated and there may be some limited effusion. Chest tubes are all in good location. There is minimal amount of air leak and the apical chest tube. Output from the chest tube has been in the order of 300 mL in each chest tube since arrival from the operating room. I was able to insert a triple-lumen catheter in the right IJ. The patient has adequate pain control for the time being. She is on DuoNeb updrafts. She is on epidural fentanyl and bupivacaine for pain control. She is alert and awake and comm unicating at this point in time. She is slightly lethargic due to her postop state. She remains on vancomycin. Postop labs are pending for now. Of 10/14 2023, the patient is postop day #1 following thoracotomy, right middle lobe resection and extensive lysis of adhesions. The patient is awake and alert and since she is sitting up on a recliner. She is using the incentive spirometer. She is falling approximately 1000 on the incentive spirometer. She has a right anterior and posterior chest tube. Her chest tube is still showing air leak. Total amount of output from the anterior chest tube has been 550 mL to of the operating room. The posterior chest tube has drained approximately 100 mL since the operating room. The patient is still on Jesu- Synephrine which is running at 1.5 mcg/kg/m. She remains on vancomycin. She is on oxygen at 2 L nasal cannula. She is afebrile. She is hemodynamically stable. Cardiac rhythm is sinus. Pulse ox is 94%. She received a total of 7 units of packed RBC yesterday, she also received fresh frozen plasma and platelets. Blood work from today shows a WBC count of 18, hemoglobin of 10, platelet count of 246, sodium is at 134, BUN is at 13 with a creatinine of 0.4. Objective - Vital Signs Vital signs: Vital Signs Temp 98.2 F 10/14/23 10:00 Pulse 88 10/14/23 10:00 Resp 21 10/14/23 10:00 BP 103/56 10/14/23 10:00 Pulse Ox 97 10/14/23 10:00 FiO2 Intake & Output 10/13/23 10/14/23 10/14/23 18:59 06:59 18:59 Intake Total 3953 1262.611 144.204 Output Total 3720 1785 150 Balance 233 -522.389 -5.796 Weight 74.6 kg Intake: IV 2123 56 3 LR 20 20 Pressure bag 3 36 3 Intake, IV Titration 214.611 141.204 Amount Phenylephrine 40 mg In 189.944 89.754 Sodium Chloride 0.9% 250 ml @ 0.5 MCG/KG/MIN 12. 184 mls/hr IV .[id number] [facility] Rx#:[id number] Ropivacaine 250 mg 24.667 51.45 fentaNYL (PF) 625 mcg In Sodium Chloride 0.9% 188 ml @ Per Protocol EPIDURAL .Q0M PRN Rx#: [id number] Blood Product 1830 992 Ffp 24 Cpd Unit 0 369 [id number] Ffp 24 Cpd Unit 359 [id number] Platelet Pheresis Pas 264 Psoralen Unit [id number] Rc As-1 Unit 310 [id number] Rc As-1 Unit 310 [id number] Rc As-1 Unit 310 [id number] Rc As-1 Unit 310 [id number] Rc Irr As1 Unit 310 [id number] Rc Pheresis As-3 Unit 280 [id number] Output: Chest Tube Drainage 95 680 80 R. Chest Tube - A 30 380 60 R. Chest Tube - B 65 300 20 Urine 625 1105 70 Estimated Blood Loss 3000 Other: Voiding Method Indwelling Catheter ABP, PAP, CO, CI - Last Documented Arterial Blood Pressure 91/45 - Exam GENERAL EXAM: Alert, pleasant, fatigued, 57-year-old female, resting in bed, on 2 L nasal cannula, in no apparent distress. HEAD: Normocephalic. EYES: Normal reaction of pupils, equal size. NOSE: Clear with pink turbinates. THROAT: No erythema or exudates. NECK: No masses, no JVD. CHEST: No chest wall deformity. The patient has 2 right-sided chest tubes in place, intermittent air leak in the right apical chest tube, the surgical one- sided dry clean and intact LUNGS: Equal air entry with crackles in the right lung base. CVS: S1 and S2 normal with no audible murmur, regular rhythm. ABDOMEN: No hepatosplenomegaly, normal bowel sounds, no guarding or rigidity. SPINE: No scoliosis or deformity SKIN: No rashes CENTRAL NERVOUS SYSTEM: No focal deficits, tone is normal in all 4 extremities. EXTREMITIES: There is no peripheral edema. No clubbing, no cyanosis. Peripheral pulses are intact. - Labs CBC & Chem 7: 10/14/23 05:16 10/14/23 05:16 Labs: Abnormal Lab Results - Last 24 Hours (Table) 10/11/23 10/13/23 10/13/23 Range/Units 15:38 14:33 15:53 WBC (3.8-10.6) k/uL RBC (3.80-5.40) m/uL Hgb (11.4-16.0) gm/dL Hct (34.0-46.0) % RDW (11.5-15.5) % Neutrophils # (1.3-7.7) k/uL ABG pH 7.51 H (7.35-7.45) ABG pO2 68 L (83-108) mmHg ABG HCO3 31 H (21-25) mmol/L ABG Total CO2 33 H (19-24) mmol/L ABG O2 Saturation (94-97) % Sodium 135 L (137-145) mmol/L BUN 6 L (7-17) mg/dL Creatinine 0.33 L (0.52-1.04) mg/dL Glucose 106 H (74-99) mg/dL POC Glucose (mg/dL) (70-110) mg/dL Calcium (8.4-10.2) mg/dL Total Protein 4.1 L (6.3-8.2) g/dL Albumin 1.7 L (3.5-5.0) g/dL Crossmatch See Detail 10/13/23 10/13/23 10/13/23 Range/Units 15:59 17:49 19:26 WBC 25.1 H (3.8-10.6) k/uL RBC (3.80-5.40) m/uL Hgb (11.4-16.0) gm/dL Hct (34.0-46.0) % RDW 15.7 H (11.5-15.5) % Neutrophils # 22.8 H (1.3-7.7) k/uL ABG pH 7.50 H (7.35-7.45) ABG pO2 199 H (83-108) mmHg ABG HCO3 30 H (21-25) mmol/L ABG Total CO2 31 H (19-24) mmol/L ABG O2 Saturation 100.0 H (94-97) % Sodium (137-145) mmol/L BUN (7-17) mg/dL Creatinine (0.52-1.04) mg/dL Glucose (74-99) mg/dL POC Glucose (mg/dL) 129 H (70-110) mg/dL Calcium (8.4-10.2) mg/dL Total Protein (6.3-8.2) g/dL Albumin (3.5-5.0) g/dL Crossmatch 10/13/23 10/14/23 10/14/23 Range/Units 19:26 05:16 05:16 WBC 18.3 H (3.8-10.6) k/uL RBC 3.37 L (3.80-5.40) m/uL Hgb 10.0 L D (11.4-16.0) gm/dL Hct 29.7 L (34.0-46.0) % RDW 16.9 H (11.5-15.5) % Neutrophils # 15.6 H (1.3-7.7) k/uL ABG pH (7.35-7.45) ABG pO2 (83-108) mmHg ABG HCO3 (21-25) mmol/L ABG Total CO2 (19-24) mmol/L ABG O2 Saturation (94-97) % Sodium 135 L 134 L (137-145) mmol/L BUN (7-17) mg/dL Creatinine 0.41 L 0.47 L (0.52-1.04) mg/dL Glucose 164 H 115 H (74-99) mg/dL POC Glucose (mg/dL) (70-110) mg/dL Calcium 8.3 L 7.7 L (8.4-10.2) mg/dL Total Protein (6.3-8.2) g/dL Albumin (3.5-5.0) g/dL Crossmatch Assessment and Plan Plan: Thoracotomy with extensive lysis of adhesions and right middle lobectomy. The patient is postop day #1. Surgery was done on 10/13/2023 and the patient is currently in the intensive care unit. Patient has 2 right-sided chest tubes in place. There was significant amount of blood loss and the patient's is a total of 7 units of packed RBC, 2 units of fresh frozen and 1 unit of platelets. The patient has an anterior chest tube with this is showing air leak, the posterior chest tube is not. Output from the chest tube is reasonable at this point in time. Hypotension, currently on 1.5 mcg/kg/m of Jesu-Synephrine. IV fluids are currently at KVO Non-small cell lung cancer status post right upper lobectomy, done on 08/19/2023. Two regional hilar lymph nodes were positive for metastasis. No other lymph nodes involved. The patient had T2b N 1 M0 disease. Persistent postop right apical pneumothorax, improved Right lung abscess, A CT of the chest 09/28/2023 demonstrated focal severe consolidation of the right upper lobe measuring 7.7 cm with what appears to be a fluid density concerning for pulmonary abscess. Pleural fluid culture positive for gram positive bacilli/brevibacterium species. Remains on vancomycin. Fol low-up computed tomography scan today 10/07/2023 continues to show a residual lung abscess measuring approximate 6.0 x 5.0 cm, previously 8.2 x 7.4 cm's. Leukocytosis, improved Normocytic normochromic anemia, without any obvious blood loss Chronic obstructive pulmonary disease, with a FEV1 53% of predicted, stable. Former tobacco dependence Plan: Aggressive pulmonary toileting Daily chest x-ray Monitor upper from the chest tubes Pain control with epidural fentanyl and bupivacaine, the epidural fentanyl dose was reduced Pain is under adequate control Check CVP and allow more fluids if the CVP is low Jesu-Synephrine to be titrated to keep immunosuppression above 65 Triple-lumen catheter was inserted Continue vancomycin We'll keep the patient intensive care unit for now. Titrate oxygen flow to maintain a saturation above 90% We will continue to follow
[2023-10-14] MEDS ORDERED: SODIUM CHLORIDE 0.9% 500 ML 500 ML IV ONE (11:12)
[2023-10-14] MEDS: KETOROLAC 15 MG/ML 1 ML VIAL IVP SCH ×3 (11:40→23:39)
[2023-10-14] MEDS ORDERED: SODIUM CHLORIDE 0.9% 1,000 ML IV ONE (13:11)
[2023-10-14 15:57] LABS: Anisocytosis Slight; HGB 8.9 gm/dL (11.4-16.0); Hypochromasia Slight; MCH 29.6 pg (25.0-35.0); MCHC 33.2 g/dL (31.0-37.0); MCV 89.4 fL (80.0-100.0); Mean Platelet Volume 7.6; Platelet Count 252 k/uL (150-450); Poikilocytosis Slight; RBC 3.02 m/uL (3.80-5.40); RDW 16.8 % (11.5-15.5); WBC 15.6 k/uL (3.8-10.6)
[2023-10-14] MEDS ORDERED: LACTATED RINGERS 500 ML IV ONE (16:15)
--- NOTE | 2023-10-14 16:15 | P.PN ---
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 the patient is status post robotic assisted right upper lobectomy on 08/19/2023, now presented to hospital with persistent cough shortness of breath did have a low-grade fever abnormal CT suspicious for possible pneumonia/lung abscess, the patient is status post bronchoscopy by pulmonary and patient also have a pigtail catheter placed in by IR On today's evaluation that is 10/13/2023 the patient remains to be afebrile, the patient is breathing comfortably on 2 L nasal cannula supplemental oxygen, the patient denies having any chest pain, no worsening cough and no sputum production, patient denies nausea vomiting or any diarrhea, and no abdominal pain Patient white count is 4.73, creatinine 0.41, pleural fluid culture growing Brevibacterium species, BAL with dylan Objective - Vital Signs Vital signs: Vital Signs Temp 98.6 F 10/13/23 11:55 Pulse 101 H 10/13/23 12:37 Resp 12 10/13/23 12:37 BP 111/58 10/13/23 12:37 Pulse Ox 98 10/13/23 12:37 FiO2 Intake & Output 10/12/23 10/13/23 10/13/23 18:59 06:59 18:59 Intake Total 480 0 200 Output Total 0 Balance 480 0 200 Intake: IV 200 Oral 480 0 Output: Chest Tube Drainage 0 Chest Tube Right Upper 0 Anterior Chest Other: Voiding Method Toilet Bedside Commode # Voids 2 - Exam GENERAL DESCRIPTION: A middle-age female up in bed in no distress RESPIRATORY SYSTEM: Unlabored breathing , decreased breath sounds at the base HEART: S1 S2 regular rate and rhythm , ABDOMEN: Soft , no tenderness EXTREMITIES: No edema feet - Labs CBC & Chem 7: 10/14/23 15:40 10/14/23 05:16 Labs: Abnormal Lab Results - Last 24 Hours (Table) 10/11/23 10/13/23 10/13/23 Range/Units 15:38 05:49 05:49 RBC 3.20 L (4.10-5.20) X 10*6/uL Hgb 8.7 L (12.0-15.0) g/dL Hct 29.5 L (37.2-46.3) % MCHC 29.5 L (32.0-37.0) g/dL RDW 18.4 H (11.5-14.5) % MPV 9.1 L (9.5-12.2) FL Carbon Dioxide 33.0 H (21.6-31.8) mmol/L BUN 7.2 L (9.0-27.0) mg/dL Creatinine 0.4 L (0.6-1.5) mg/dL Calcium 8.2 L (8.7-10.3) mg/dL Crossmatch See Detail Assessment and Plan (1) Pneumonia Current Visit: Yes Status: Acute Code(s): J18.9 - PNEUMONIA, UNSPECIFIED ORGANISM SNOMED Code(s): 744674305 (2) Allergy to multiple antibiotics Current Visit: Yes Status: Acute Code(s): Z88.1 - ALLERGY STATUS TO OTHER ANTIBIOTIC AGENTS SNOMED Code(s): 858088913 (3) Lung abscess Current Visit: Yes Status: Acute Code(s): J85.2 - ABSCESS OF LUNG WITHOUT PNEUMONIA SNOMED Code(s): 21022174 Plan: 1patient presented to hospital with sepsis in this patient who did have a fever tachycardia hypoxemia elevated white count source is unlikely pneumonia with question of possible abscess/empyema in this patient with recent surgery we will need to cover for resistant gram-positive as well as gram-negative pathogen. 2patient with the penicillin and cephalosporin allergy that would limit the number of antibiotics safe to use. 3-patient is status post bronchoscopy lavage and also have placement of a pigtail catheter by IR , pleural fluid cultures are currently growing Brevibacterium species 4patient to continue with vancomycin pharmacy to dose , patient is currently waiting for surgery this afternoon and will monitor clinical course closely Dictation was produced using [employer] dictation software. please excuse any grammatical, word or spelling errors. Time with Patient: Less than 30
--- NOTE | 2023-10-14 16:21 | P.PN ---
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 the patient is status post robotic assisted right upper lobectomy on 08/19/2023, now presented to hospital with persistent cough shortness of breath did have a low-grade fever abnormal CT suspicious for possible pneumonia/lung abscess, the patient is status post bronchoscopy by pulmonary and patient also have a pigtail catheter placed in by IR, subsequently Patient is status post redo thoracotomy with lysis of adhesion and right middle lobectomy completed on 10/13/2023 On today's evaluation that is 10/14/2023, the patient continues to be afebrile and is breathing comfortably on 2 L nasal cannula oxygen, and patient has been complaining of right-sided chest pain and did have difficulty coughing but no sputum production some nausea but no vomiting Patient white count is 15.6 today, creatinine 0.47, pleural fluid culture growing Brevibacterium species, BAL with dylan Objective - Vital Signs Vital signs: Vital Signs Temp 98.2 F 10/14/23 10:00 Pulse 96 10/14/23 14:30 Resp 18 10/14/23 14:30 BP 90/51 10/14/23 14:30 Pulse Ox 94 L 10/14/23 14:30 FiO2 Intake & Output 10/13/23 10/14/23 10/14/23 18:59 06:59 18:59 Intake Total 3953 1262.611 304.129 Output Total 3720 1785 630 Balance 233 -522.389 -325.871 Weight 74.6 kg Intake: IV 2123 56 3 LR 20 20 Pressure bag 3 36 3 Intake, IV Titration 214.611 301.129 Amount Phenylephrine 40 mg In 189.944 243.879 Sodium Chloride 0.9% 250 ml @ 0.5 MCG/KG/MIN 12. 184 mls/hr IV .[id number] [facility] Rx#:[id number] Ropivacaine 250 mg 5.800 fentaNYL (PF) 1,250 mcg In Sodium Chloride 0.9% 175 ml @ Per Protocol EPIDURAL .Q0M PRN Rx#: [id number] Ropivacaine 250 mg 24.667 51.45 fentaNYL (PF) 625 mcg In Sodium Chloride 0.9% 188 ml @ Per Protocol EPIDURAL .Q0M PRN Rx#: [id number] Blood Product 1830 992 Ffp 24 Cpd Unit 0 369 [id number] Ffp 24 Cpd Unit 359 [id number] Platelet Pheresis Pas 264 Psoralen Unit [id number] Rc As-1 Unit 310 [id number] Rc As-1 Unit 310 [id number] Rc As-1 Unit 310 [id number] Rc As-1 Unit 310 [id number] Rc Irr As1 Unit 310 [id number] Rc Pheresis As-3 Unit 280 [id number] Output: Chest Tube Drainage 95 680 170 R. Chest Tube - A 30 380 130 R. Chest Tube - B 65 300 40 Urine 625 1105 460 Estimated Blood Loss 3000 Other: Voiding Method Indwelling Catheter Indwelling Catheter ABP, PAP, CO, CI - Last Documented Arterial Blood Pressure 81/41 - Exam GENERAL DESCRIPTION: A middle-age female up in bed in no distress RESPIRATORY SYSTEM: Unlabored breathing , decreased breath sounds at the base HEART: S1 S2 regular rate and rhythm , ABDOMEN: Soft , no tenderness EXTREMITIES: No edema feet - Labs CBC & Chem 7: 10/14/23 15:40 10/14/23 05:16 Labs: Abnormal Lab Results - Last 24 Hours (Table) 10/11/23 10/13/23 10/13/23 Range/Units 15:38 15:53 15:59 WBC (3.8-10.6) k/uL RBC (3.80-5.40) m/uL Hgb (11.4-16.0) gm/dL Hct (34.0-46.0) % RDW (11.5-15.5) % Neutrophils # (1.3-7.7) k/uL ABG pH 7.50 H (7.35-7.45) ABG pO2 199 H (83-108) mmHg ABG HCO3 30 H (21-25) mmol/L ABG Total CO2 31 H (19-24) mmol/L ABG O2 Saturation 100.0 H (94-97) % Sodium 135 L (137-145) mmol/L BUN 6 L (7-17) mg/dL Creatinine 0.33 L (0.52-1.04) mg/dL Glucose 106 H (74-99) mg/dL POC Glucose (mg/dL) (70-110) mg/dL Calcium (8.4-10.2) mg/dL Total Protein 4.1 L (6.3-8.2) g/dL Albumin 1.7 L (3.5-5.0) g/dL Crossmatch See Detail 10/13/23 10/13/23 10/13/23 Range/Units 17:49 19:26 19:26 WBC 25.1 H (3.8-10.6) k/uL RBC (3.80-5.40) m/uL Hgb (11.4-16.0) gm/dL Hct (34.0-46.0) % RDW 15.7 H (11.5-15.5) % Neutrophils # 22.8 H (1.3-7.7) k/uL ABG pH (7.35-7.45) ABG pO2 (83-108) mmHg ABG HCO3 (21-25) mmol/L ABG Total CO2 (19-24) mmol/L ABG O2 Saturation (94-97) % Sodium 135 L (137-145) mmol/L BUN (7-17) mg/dL Creatinine 0.41 L (0.52-1.04) mg/dL Glucose 164 H (74-99) mg/dL POC Glucose (mg/dL) 129 H (70-110) mg/dL Calcium 8.3 L (8.4-10.2) mg/dL Total Protein (6.3-8.2) g/dL Albumin (3.5-5.0) g/dL Crossmatch 10/14/23 10/14/23 Range/Units 05:16 05:16 WBC 18.3 H (3.8-10.6) k/uL RBC 3.37 L (3.80-5.40) m/uL Hgb 10.0 L D (11.4-16.0) gm/dL Hct 29.7 L (34.0-46.0) % RDW 16.9 H (11.5-15.5) % Neutrophils # 15.6 H (1.3-7.7) k/uL ABG pH (7.35-7.45) ABG pO2 (83-108) mmHg ABG HCO3 (21-25) mmol/L ABG Total CO2 (19-24) mmol/L ABG O2 Saturation (94-97) % Sodium 134 L (137-145) mmol/L BUN (7-17) mg/dL Creatinine 0.47 L (0.52-1.04) mg/dL Glucose 115 H (74-99) mg/dL POC Glucose (mg/dL) (70-110) mg/dL Calcium 7.7 L (8.4-10.2) mg/dL Total Protein (6.3-8.2) g/dL Albumin (3.5-5.0) g/dL Crossmatch Assessment and Plan (1) Pneumonia Current Visit: Yes Status: Acute Code(s): J18.9 - PNEUMONIA, UNSPECIFIED ORGANISM SNOMED Code(s): 596477092 (2) Allergy to multiple antibiotics Current Visit: Yes Status: Acute Code(s): Z88.1 - ALLERGY STATUS TO OTHER ANTIBIOTIC AGENTS SNOMED Code(s): 041010170 (3) Lung abscess Current Visit: Yes Status: Acute Code(s): J85.2 - ABSCESS OF LUNG WITHOUT PNEUMONIA SNOMED Code(s): 64808955 Plan: 1patient presented to hospital with sepsis in this patient who did have a fever tachycardia hypoxemia elevated white count source is unlikely pneumonia with question of possible abscess/empyema in this patient with recent surgery we will need to cover for resistant gram-positive as well as gram-negative pathogen. 2patient with the penicillin and cephalosporin allergy that would limit the number of antibiotics safe to use. 3-patient is status post bronchoscopy lavage and also have placement of a pigtail catheter by IR , pleural fluid cultures are currently growing Brevibacterium species 4patient status post right middle lobe lobectomy, and noticed to have slight worsening of the white count and clinical condition concerning for possible sepsis related to it Zosyn was added however the patient did have penicillin and cephalexin ALLERGY we will add meropenem for gram-negative coverage and continue with the vancomycin case was discussed with the SANITARY ENGINEER for CT surgery, we'll also obtain blood culture and check inflammatory markers Dictation was produced using [employer] dictation software. please excuse any grammatical, word or spelling errors. Time with Patient: Less than 30
[2023-10-14] MEDS ORDERED: SODIUM CHLORIDE 0.9% 1,000 ML IV SCH ×2 (16:30→21:00)
--- NOTE | 2023-10-14 16:56 | P.PN ---
Subjective Progress Note Date: 10/14/23 Principal diagnosis: Necrosis and abscess of right middle lobe, Non small cell lung carcinoma of the right upper lobe, Pneumonia with possible lung abscess, small right pleural eff usion, residual loculated small anterior upper lung pneumothorax, leukocytosis, normocytic normochromic anemia. History of non-small cell carcinoma with neuroendocrine differentiation, consistent with large cell neuroendocrine carcinoma status post robotic-assisted right upper lobectomy on 08/19/2023 and subsequent bronchoscopy with placement of right thoracostomy tube, chronic tobacco dependence with recent cessation, COPD, asthma, hyperlipidemia, GERD, diverticulitis status post bowel resection, osteoarthritis POD #1 Redo Thoracotomy, Extensive lysis of adhesions, Right middle lobectomy, Cryo-ablation of intercostal nerves 3-7. The patient was seen and examined in follow up today 10/14/23 at her bedside in the intensive care unit. She is currently sitting up to the bedside chair, is aw leonard, alert, oriented x 3 and is in no acute apparent distress. The patient denies any complaints of shortness of breath, although is complaining of surgical type pain, currently rating her pain 7/10 on the pain scale. Epidural is in place and is being managed by anesthesia. Oxygen saturations are 92% on 2 L nasal cannula and achieving 750 ml on her incentive spirometry. Bedside telemetry is showing NSR heart rate 91 bpm. Jesu-Synephrine drip is currently running at 1.2 mcg/kg/m. Blood pressure is currently 105/52 mm/hg. Right pleural chest anterior tube remains to low continuous wall suction -20 cm H2O, intermittent air leak is present, draining thin serosanguineous drainage with 180 mL output in the last 8 hours and 450 mL output since surgery. Right pleural posterior chest tube remains in place to low continuous wall suction -20 cm H2O. No air leak is present. Draining thin serosanguineous drainage with 130 mL output in the last 8 hours and 300 mL output since surgery. Jimenez cath eter remains in place as the patient has an epidural in place with urine output 600 mL in the last 8 hours. She has been afebrile in the last 24 hours. Laboratory and chest x-ray results reviewed. Objective - Vital Signs Vital signs: Vital Signs Temp 98.2 F 10/14/23 10:00 Pulse 99 10/14/23 16:00 Resp 30 H 10/14/23 16:00 BP 90/47 10/14/23 16:00 Pulse Ox 97 10/14/23 16:00 FiO2 Intake & Output 10/13/23 10/14/23 10/14/23 18:59 06:59 18:59 Intake Total 3953 1262.611 304.129 Output Total 3720 1785 1070 Balance 233 -522.389 -765.871 Weight 74.6 kg Intake: IV 2123 56 3 LR 20 20 Pressure bag 3 36 3 Intake, IV Titration 214.611 301.129 Amount Phenylephrine 40 mg In 189.944 243.879 Sodium Chloride 0.9% 250 ml @ 0.5 MCG/KG/MIN 12. 184 mls/hr IV .[id number] [facility] Rx#:[id number] Ropivacaine 250 mg 5.800 fentaNYL (PF) 1,250 mcg In Sodium Chloride 0.9% 175 ml @ Per Protocol EPIDURAL .Q0M PRN Rx#: [id number] Ropivacaine 250 mg 24.667 51.45 fentaNYL (PF) 625 mcg In Sodium Chloride 0.9% 188 ml @ Per Protocol EPIDURAL .Q0M PRN Rx#: [id number] Blood Product 1830 992 Ffp 24 Cpd Unit 0 369 [id number] Ffp 24 Cpd Unit 359 [id number] Platelet Pheresis Pas 264 Psoralen Unit [id number] Rc As-1 Unit 310 [id number] Rc As-1 Unit 310 [id number] Rc As-1 Unit 310 [id number] Rc As-1 Unit 310 [id number] Rc Irr As1 Unit 310 [id number] Rc Pheresis As-3 Unit 280 [id number] Output: Chest Tube Drainage 95 680 355 R. Chest Tube - A 30 380 210 R. Chest Tube - B 65 300 145 Urine 625 1105 715 Estimated Blood Loss 3000 Other: Voiding Method Indwelling Catheter Indwelling Catheter ABP, PAP, CO, CI - Last Documented Arterial Blood Pressure 81/41 - Exam CONSTITUTIONAL: Appears comfortable, cooperative, no acute distress. RESPIRATORY: Lungs sounds diminished bilaterally. Respirations are symmetrical, nonlabored. Currently on 2 L nasal cannula with oxygen saturation 92%. Able to achieve 750 mL on incentive spirometry. Strong cough. CARDIOVASCULAR: S1, S2 present. Regular rate and rhythm, sinus rhythm on telemetry. Palpable peripheral pulses bilaterally. No edema present. No calf pain or tenderness noted. SCDs present. GASTROINTESTINAL: Abdomen soft, nontender, nondistended. Active bowel sounds present 4 quadrants. Tolerating diet. Passing flatus. GENITOURINARY: Jimenez catheter in place for accurate I's and O's. Urine output 600 mL in the last 8 hours. INTEGUMENTARY: Skin is warm and dry with evidence of good perfusion. Right chest thoracotomy incision well approximated, isela in place and covered with dry intact dressing. NEUROLOGIC: Cranial nerves II through XII intact. No focal deficits. Epidural remains in place. MUSKULOSKELETAL: Able to move all extremities, strength equal bilaterally, gait normal. PSYCHIATRIC: Alert and oriented to person place and time, appropriate affect, intact judgment and insight. INVASIVE LINES AND TUBES: Right pleural anterior chest tube present and connected to wall suction, intermittent air leak is present. Right pleural chest tube with 180 mL serosanguineous drainage overnight, 450 mL in the last 24 hours. Right pleural posterior chest tube connected to low continuous wall suction, no air leak is present. Draining thin serosanguineous drainage with 130 mL serosanguineous drainage overnight, 300 mL in the last 24 hours. - Allied health notes Allied health notes reviewed: nursing - Labs CBC & Chem 7: 10/14/23 15:40 10/14/23 05:16 Labs: Abnormal Lab Results - Last 24 Hours (Table) 10/11/23 10/13/23 10/13/23 Range/Units 15:38 17:49 19:26 WBC 25.1 H (3.8-10.6) k/uL RBC (3.80-5.40) m/uL Hgb (11.4-16.0) gm/dL Hct (34.0-46.0) % RDW 15.7 H (11.5-15.5) % Neutrophils # 22.8 H (1.3-7.7) k/uL Sodium (137-145) mmol/L Creatinine (0.52-1.04) mg/dL Glucose (74-99) mg/dL POC Glucose (mg/dL) 129 H (70-110) mg/dL Calcium (8.4-10.2) mg/dL Crossmatch See Detail 12/04/3010/14/23 10/14/23 Range/Units 19:26 05:16 05:16 WBC 18.3 H (3.8-10.6) k/uL RBC 3.37 L (3.80-5.40) m/uL Hgb 10.0 L D (11.4-16.0) gm/dL Hct 29.7 L (34.0-46.0) % RDW 16.9 H (11.5-15.5) % Neutrophils # 15.6 H (1.3-7.7) k/uL Sodium 135 L 134 L (137-145) mmol/L Creatinine 0.41 L 0.47 L (0.52-1.04) mg/dL Glucose 164 H 115 H (74-99) mg/dL POC Glucose (mg/dL) (70-110) mg/dL Calcium 8.3 L 7.7 L (8.4-10.2) mg/dL Crossmatch 10/14/23 Range/Units 15:40 WBC 15.6 H (3.8-10.6) k/uL RBC 3.02 L (3.80-5.40) m/uL Hgb 8.9 L (11.4-16.0) gm/dL Hct 27.0 L (34.0-46.0) % RDW 16.8 H (11.5-15.5) % Neutrophils # (1.3-7.7) k/uL Sodium (137-145) mmol/L Creatinine (0.52-1.04) mg/dL Glucose (74-99) mg/dL POC Glucose (mg/dL) (70-110) mg/dL Calcium (8.4-10.2) mg/dL Crossmatch - Imaging and Cardiology Chest x-ray: report reviewed, image reviewed Assessment and Plan Assessment: Necrosis and lung abscess of right middle lobe, computed tomography scan of the chest on 09/28/2023 showing a small right pleural effusion, a residual loculated small anterior upper lung pneumothorax measuring 4.5 cm, a focal severe consolidation of the adjacent right upper lung measuring 7.7 cm, a fluid density, possible severe pneumonia or pulmonary abscess, and possible second ovary abscess or cavity necrosis with air-fluid level anterior right mid lung measuring 9.2 x 8.2 x 7.4 cm, status post right middle lobectomy Leukocytosis, likely secondary to above Normocytic normochromic anemia, no obvious blood loss Non-small cell carcinoma with neuroendocrine differentiation, consistent with large cell neuroendocrine carcinoma, 2 of 4 hilar nodes positive on pathology, status post robotic-assisted right upper lobectomy on 08/19/2023 and subsequent bronchoscopy with placement of right thoracostomy tube COPD with a recent FEV1 showing a predicted value of 87% and a DLCO 55% of predicted value Asthma Hyperlipidemia GERD History of diverticulitis, status post bowel resection Chronic tobacco dependence with recent cessation Osteoarthritis Plan: Keep right pleural anterior and posterior chest tubes to low continuous wall suction. Continue to monitor for airleak resolution. Epidural management recommendations per anesthesia Wean oxygen as tolerated. Encourage use of incentive spirometry 10 times every hour while awake. Continue aggressive pulmonary toileting. Monitor daily labs and chest x-rays. GI and DVT prophylaxis. Continue to follow pathology results, remains pending. Continue to monitor CVP. Increase activity as tolerated. Out of bed for all meals. Wean Jesu-Synephrine drip as tolerated to keep a systolic blood pressure greater than or equal to 100 mmHg or a map greater than 70 mmHg. Antibiotic management per infectious disease recommendations. More recommendations to follow based on patient's clinical course. Time with Patient: Greater than 30
[2023-10-14] MEDS: MEROPENEM 1 GM in SODIUM CHLORIDE 0.9% 100 ML IVPB SCH ×2 (17:22→23:38)
[2023-10-14] MEDS: VASOPRESSIN 20 UNIT in SODIUM CHLORIDE 0.9% 50 ML IV SCH (21:22)
[2023-10-15] MEDS ORDERED: PIPERACILLIN-TAZOBACTAM 3.375 GM in SODIUM CHLORIDE 0.9% 100 ML IVPB SCH ×2
[2023-10-15] MEDS: ACETAMINOPHEN IV (For NPO) 1,000 MG in EMPTY BAG 1 BAG IVPB SCH (02:40)
[2023-10-15] MEDS: VASOPRESSIN 20 UNIT in SODIUM CHLORIDE 0.9% 50 ML IV SCH ×2 (02:41→15:52)
[2023-10-15] MEDS ORDERED: SODIUM CHLORIDE 0.9% 1,000 ML IV SCH (03:27)
[2023-10-15 04:24] LABS: Anisocytosis Slight; Basophils % (A) 0 %; Eosinophils # (A) 0.1 k/uL (0-0.7); Eosinophils % (A) 1 %; HGB 7.8 gm/dL (11.4-16.0); Hypochromasia Slight; Lymphocytes # (A) 1.1 k/uL (1.0-4.8); Lymphocytes % (A) 13 %; MCH 30.5 pg (25.0-35.0); MCHC 33.8 g/dL (31.0-37.0); MCV 90.4 fL (80.0-100.0); Mean Platelet Volume 7.4; Monocytes # (A) 0.3 k/uL (0-1.0); Monocytes % (A) 4 %; Neutrophils # (A) 6.3 k/uL (1.3-7.7); Neutrophils % (A) 80 %; Platelet Count 186 k/uL (150-450); Poikilocytosis Slight; RBC 2.54 m/uL (3.80-5.40); RDW 16.6 % (11.5-15.5); WBC 7.9 k/uL (3.8-10.6)
[2023-10-15 05:00] LABS: ALT 16 U/L (4-34); AST 35 U/L (14-36); African American GFR (CKD) >90 (>60 ml/min/1.73 sqM); Albumin 1.9 g/dL (3.5-5.0); Alkaline Phosphatase 73 U/L (38-126); Anion Gap 6 mmol/L; Blood Urea Nitrogen 15 mg/dL (7-17); Calcium 7.2 mg/dL (8.4-10.2); Carbon Dioxide 23 mmol/L (22-30); Chloride 103 mmol/L (98-107); Glucose 117 mg/dL (74-99); Non-African American GFR(CKD) >90 (>60 ml/min/1.73 sqM); Potassium 3.8 mmol/L (3.5-5.1); Sodium 132 mmol/L (137-145); Total Bilirubin 0.4 mg/dL (0.2-1.3); Total Protein 4.1 g/dL (6.3-8.2)
--- NOTE | 2023-10-15 06:08 | P.PN ---
Subjective Progress Note Date: 10/14/23 Patient evaluated on medical floor. Pigtail catheter remains in place with 20 mls of output documented overnight. Patient continues with productive cough brown tinged sputum and repeat sputum culture has been sent and pending at this time. Chest xray today reveals cavitation vs. pneumothorax right apex. Small effusion may be present. Bronchial washings reveal inflammation, negative for diagnostic malignancy. Patient does have known NSCLC. Remains on IV aztreonam and IV vancomycin. Procalcitonin level 0.15. 10/06/2023 Patient evaluated sitting up in bed. No drainage noted from atrium overnight. P igtail catheter remains n place. Chest xray today reveals stable appearance right lung with pneumothorax vs. cavitation apex. Small effusion may be present. Repeat sputum culture final showing normal hubert. The pleural fluid is finalized showing brevibacterium species. 10/07/2023 Patient is evaluated today sitting up in bed. Legs are swollen, patient has been receiving IV fluids which will be stopped. IV lasix x 1 will be given and recommending SCDs for this. Edema is non pitting. Patient had chest xray this AM showing possible loculated pneumothorax vs. cavitary process. Subpulmonic right basilar effusion. The left lung is clear. Pigtail catheter remains in place again minimal to no drainage overnight. CT following closely. Repeat sputum showing normal hubert. Remains on IV antibiotics. Patient remains on room air. 10/08/[address] yesterday showing residual lung abscess with significant fluid content remaining. Thickening of the right pectoralis major muscle with s ome air and possibly fluid within and may relate to developing infection in this location. Pigtail catheter remains in place. Bilateral pleural effusions. Small left and moderate right pleural effusion. Sodium 139, renal function stable. 10/09/2023 Patient evaluated today sitting up in bed. Lower extremity edema is improved after a second dose of IV lasix, remains off fluids she is eating and drinking well. BENJAMÍN hose to be applied today should help with the swelling as well. Patient continues with the pigtail catheter which has had minimal drainage over the last 2 days. Patient will be going for thoracotomy and right middle lobectomy on Wednesday. Patient remains on IV vancomycin per ID and PICC line is in place. 10/10/2023 Patient evaluated today sitting up in bed. Remains on 2L of oxygen. Lower extremity edema improved. Continues on IV vancomycin. Pending repeat chest xray reports. Cardiothoracic following closely patient will go for right middle lobectomy and thoracotomy on Wednesday. 10/13/2023 Patient is seen in follow-up this morning currently nothing by mouth as she is scheduled to undergo thoracotomy with right middle lobectomy with CT surgery. Pulmonary following closely patient continues on 2 L of oxygen along with antibiotics. Plan is for going to ICU postop and will await surgical report. Patient is sitting up with multiple family members at bedside with questions and concerns were answered to the best of our ability. Patient is currently afebrile with no reports of worsening shortness of breath. Patient denies any nausea or vomiting and currently nothing by mouth for the procedure. 10/14/2023 Patient is seen in follow-up in the ICU status post right middle lobectomy with CT surgery yesterday. Patient with multiple medical consultations following continues on low-dose pressor support for hypotension. Patient also on epidural pain pump with anesthesia following has been titrating meds accordingly due to continued low blood pressure patient has been receiving large amounts of fluid showing some minimal improvement in blood pressures. Patient is alert and oriented sitting up in the chair and continued on 2 L via nasal cannula. Patient is afebrile and maintained on meropenem along with vancomycin with infectious disease following. Encouraged incentive spirometer use and awaiting follow-up labs. Patient continues with indwelling Jimenez catheter for continued strict intake and output monitoring. PT/OT therapy for evaluation. Review of Systems Constitutional: Denied any fatigue denied any fever. Cardio vascular: denied any chest pain, palpitations, reports chest wall pain with chest tubes Gastrointestinal: denied any nausea, vomiting, diarrhea Pulmonary: Reports shortness of breath and productive cough. Worsens with exertion Neurologic denied any new focal deficits All medications were reviewed PHYSICAL EXAMINATION: GENERAL: The patient is alert and oriented x3, . Well developed, well nourished. Obese HEENT: Pupils are round and equally reacting to light. EOMI. No scleral icterus. No conjunctival pallor. Normocephalic, atraumatic. No pharyngeal erythema. No thyromegaly. CARDIOVASCULAR: S1 and S2 muffled PULMONARY: Crackles in the right lung base. Right thoracotomy tubes in place. With serosanguineous output noted ABDOMEN: Soft, nontender, nondistended, normoactive bowel sounds. No palpable organomegaly. MUSCULOSKELETAL: No joint swelling or deformity. EXTREMITIES: No cyanosis, clubbing +1 peripheral edema/ankle edema non pitting. NEUROLOGICAL: Gross neurological examination did not reveal any focal deficits. Diffusely weak SKIN: No rashes. Assessment: Pneumonia with possible lung abscess, status post bronchoscopy, status post right middle lobe lobectomy on 10/13/2023 Rule out Cavitary lung lesion/pulmonary abscess as well as possible second ovary abscess or cavity necrosis Non-small cell lung cancer status post right upper lobectomy, done on 08/19/2023. 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 The bronchial washings are negative for malignancy and sputum showing gram positive. Repeat sputum culture showing normal hubert. Infectious disease is following and has added cefepime to the regimen Patient is status post right middle lobe ectomy yesterday and continues with 2 right-sided chest tubes showing serosanguineous fluid. Repeat chest x-ray ordered Patient continues on low-dose Levophed for hypotension. Patient has been receiving IV fluids with minimal improvement in blood pressures. Patient also continues on epidural pain pump and is being decreased per anesthesia. Recommend wean pressor support as tolerated Continue BNEJAMÍN hose and to elevate lower extremities while sitting. Continue to encourage incentive spirometer 10 x an hour while awake. Patient is currently maintained on 2 L via nasal cannula recommend wean FiO2 as tolerated Increase activity level. Will need extensive PT/OT therapy postoperatively once cleared by CT surgery Repeat labs along with chest x-ray in the a.m. Due to multiple complex medical issues, prognosis is guarded The impression and plan of care has been dictated by Pamela Bryant, Nurse Practitioner as directed. Dr. Nitish MD I have performed a history and examination and MDM of this patient, discussed the same with the dictator, and agree with the dictator's assessment and plan as written ,documented as a scribe. Based on total visit time, I have performed more than 50% of the visit. Objective - Vital Signs Vital signs: Vital Signs Temp 97.7 F 10/15/23 04:00 Pulse 84 12/08/23 05:30 Resp 23 10/15/23 05:30 BP 93/55 10/15/23 05:30 Pulse Ox 95 10/15/23 05:30 FiO2 Intake & Output 10/14/23 10/14/23 10/15/23 06:59 18:59 06:59 Intake Total 1262.611 856.312 4090.363 Output Total 1785 1320 820 Balance -522.389 -777.971 557.363 Weight 74.6 kg 81 kg Intake: IV 56 3 525 LR 20 Pressure bag 36 3 Sodium Chloride 0.9% 1, 375 000 ml @ 50 mls/hr IV . Q20H [facility] Rx#:[id number] Sodium Chloride 0.9% 1, 150 000 ml @ 75 mls/hr IV . [id number] [facility] Rx#:[id number] Intake, IV Titration 214.611 339.029 732.363 Amount ACETAMINOPHEN IV (For NPO 100 ) 1,000 mg In Empty Bag 1 bag @ 400 mls/hr IVPB Q6H [facility] Rx#:[id number] Phenylephrine 40 mg In 189.944 281.779 274.825 Sodium Chloride 0.9% 250 ml @ 0.5 MCG/KG/MIN 12. 184 mls/hr IV .[id number] [facility] Rx#:[id number] Ropivacaine 250 mg 5.800 fentaNYL (PF) 1,250 mcg In Sodium Chloride 0.9% 175 ml @ Per Protocol EPIDURAL .Q0M PRN Rx#: [id number] Ropivacaine 250 mg 24.667 51.45 fentaNYL (PF) 625 mcg In Sodium Chloride 0.9% 188 ml @ Per Protocol EPIDURAL .Q0M PRN Rx#: [id number] Sodium Chloride 0.9% 1, 75 000 ml @ 75 mls/hr IV . [id number] [facility] Rx#:[id number] Vancomycin 1,250 mg In 250 Sodium Chloride 0.9% 250 ml @ 125 mls/hr IVPB Q12H [facility] Rx#:[id number] Vasopressin 20 unit In 32.538 Sodium Chloride 0.9% 50 ml @ 0.04 UNITS/MIN 6.12 mls/hr IV .Q8H20M [facility] Rx# :[id number] Oral 200 120 Blood Product 992 Ffp 24 Cpd Unit 369 [id number] Ffp 24 Cpd Unit 359 [id number] Platelet Pheresis Pas 264 Psoralen Unit [id number] Output: Chest Tube Drainage 680 355 165 R. Chest Tube - A 380 210 135 R. Chest Tube - B 300 145 30 Urine 1105 965 655 Other: Voiding Method Indwelling Catheter Indwelling Catheter Indwelling Catheter # Bowel Movements 1 ABP, PAP, CO, CI - Last Documented Arterial Blood Pressure 81/41 - Labs CBC & Chem 7: 10/15/23 03:50 10/15/23 03:50 Labs: Abnormal Lab Results - Last 24 Hours (Table) 10/11/23 10/14/23 10/14/23 Range/Units 15:38 15:40 16:49 WBC 15.6 H (3.8-10.6) k/uL RBC 3.02 L (3.80-5.40) m/uL Hgb 8.9 L (11.4-16.0) gm/dL Hct 27.0 L (34.0-46.0) % RDW 16.8 H (11.5-15.5) % Sodium (137-145) mmol/L Creatinine (0.52-1.04) mg/dL Glucose (74-99) mg/dL Calcium (8.4-10.2) mg/dL C-Reactive Protein 21.3 H (<1.0) mg/dL Total Protein (6.3-8.2) g/dL Albumin (3.5-5.0) g/dL Procalcitonin (0.02-0.09) ng/mL Crossmatch See Detail 10/14/23 10/15/23 10/15/23 Range/Units 16:49 03:50 03:50 WBC (3.8-10.6) k/uL RBC 2.54 L (3.80-5.40) m/uL Hgb 7.8 L (11.4-16.0) gm/dL Hct 23.0 L (34.0-46.0) % RDW 16.6 H (11.5-15.5) % Sodium 132 L (137-145) mmol/L Creatinine 0.44 L (0.52-1.04) mg/dL Glucose 117 H (74-99) mg/dL Calcium 7.2 L (8.4-10.2) mg/dL C-Reactive Protein (<1.0) mg/dL Total Protein 4.1 L (6.3-8.2) g/dL Albumin 1.9 L (3.5-5.0) g/dL Procalcitonin 0.94 H (0.02-0.09) ng/mL Crossmatch
[2023-10-15] MEDS: KETOROLAC 15 MG/ML 1 ML VIAL IVP SCH ×3 (06:39→18:16)
[2023-10-15] MEDS: PANTOPRAZOLE 40 MG TABLET PO SCH (06:40)
--- NOTE | 2023-10-15 06:44 | P.PN ---
Progress Note - Text 10/15/23 631am 57-year-old female status post thoracotomy with his thoracic epidural for postop pain control patient seen and evaluated, patient has epidural solution running at 1 mL an hour with a VAS of 8. We have not been able to run a higher dose because of hemodynamic instability. Patient was discussed with the nurse and we're going to changes solution to Dilaudid only to prevent any hemodynamic instability. We will write the orders for that
[2023-10-15] MEDS ORDERED: POTASSIUM CHLORIDE ER 20 MEQ TAB.ER PO SCH (07:00)
[2023-10-15] MEDS ORDERED: HYDROMORPHONE EPIDURAL PRN (07:31)
[2023-10-15] MEDS ORDERED: SODIUM CHLORIDE 0.9% EPIDURAL PRN (07:31)
--- NOTE | 2023-10-15 08:25 | XR ---
EXAMINATION TYPE: XR chest 1V portable DATE OF EXAM: 10/15/2023 Comparison: 10/14/2023 Clinical History: 57-year-old female Postoperative middle lobectomy Findings: Skin isela along the right lateral hemithorax. 2 right-sided chest tubes remain in place. Similar t o slightly increased pleural based opacity around the right lung. Similar surgical change at the righ t hilum with volume loss throughout the right hemithorax and diffuse interstitial densities. Hazy den sity remains at the left base. Slight increasing patchy retrocardiac opacity. No appreciable pneumoth orax. Right CVC tip at the lower right atrium. Left PICC tip estimated to be near the cavoatrial junc tion. Impression: 1. Postsurgical changes right hemithorax with corresponding volume loss and 2 right-sided chest tubes . No appreciable pneumothorax. 2. Diffuse pleural-based density on the right, possible effusion, is slightly increasing. Small left pleural effusion also persists. 3. Continued diffuse interstitial densities throughout the right lung.
[2023-10-15] MEDS: HEPARIN SODIUM,PORCINE 5,000 UNIT/ML 1 ML VIAL SQ SCH ×2 (09:09→15:55)
[2023-10-15] MEDS: VANCOMYCIN 1,250 MG in SODIUM CHLORIDE 0.9% 250 ML IVPB SCH ×2 (09:10→20:45)
[2023-10-15] MEDS: MEROPENEM 1 GM in SODIUM CHLORIDE 0.9% 100 ML IVPB SCH ×2 (09:10→16:00)
[2023-10-15] MEDS: IPRATROPIUM-ALBUTEROL 3 ML NEB INHALATION SCH ×4 (09:10→21:25)
[2023-10-15] MEDS: FORMOTEROL FUMARATE 20 MCG/2 ML NEBU INHALATION SCH ×2 (09:10→21:25)
--- NOTE | 2023-10-15 09:47 | P.PN ---
Subjective Progress Note Date: 10/15/23 I am seeing this patient in consultation today 09/30/2023 for suspected pulmonary abscess. Patient is a 57-year-old white female with past medical history significant for right upper lobe non-small cell lung carcinoma status post robotic-assisted VATS involving a right upper lobectomy on August 19, . She did have a complicated postoperative hospital stay with a persistent right sided pneumothorax and opacification of the right midlung area. She has been closely followed up on an outpatient basis. She does follow Dr. Davey in the pulmonary office, and also had a office visit with Dr. Espino from cardiothoracic surgery on 09/17. She states that she has "not really been 100%" since surgery. More recently she has had symptoms of exertional shortness of breath, right-sided back pain, productive cough with yellow/green sputum sometimes pink tinged, and subjective fevers. She has received courses of Levaquin and doxycycline outpatient. A CT of the chest done 2 days ago demonstrated focal severe consolidation of the right upper lobe measuring 7.7 cm with what appears to be a fluid density concerning for pulmonary abscess. There is an adjacent residual loculated small anterior upper lung pneumothorax measuring 4.5 cm. There is a possible secondary pulmonary abscess or cavitary necrosis with air-fluid level anterior right mid lung measuring 9.2 x 8.2 x 7.4 cm. For this reason, she was directed to the emergency room yesterday. Patient was given doses of Levaquin and vancomycin in the emergency room. She does have a penicillin ALLERGY. Bronchoscopy with BAL done on 08/23/2023 did not identify significant bacterial growth. CBC shows a WBC count of 16, hemoglobin 9.6, hematocrit 30.4, platelets 694. BMP on arrival shows sodium 133, potassium 3.2, chloride 83, serum bicarbonate 34, BUN 12, creatinine 0.5, glucose 112. Normal saline infusing at 130 ML's per hour. Lactic acid level I.9. Patient is currently lying in bed, on 2 L/m nasal cannula, in no acute distress. SPO2 97%. She is slightly tachycardic with a heart rate of 116 bpm. She was febrile with a T-max of 100F. Blood cultures pending. Hemodynamically stable. Patient was seen and examined today on 10/01/23, seems to be doing about the same, continues to have cough and shortness of breath. Cough is productive with thick yellow phlegm. Underwent a bronchoscopy today , please refer to the full operative report. Patient was found to have significant area and secretions coming out of the right middle lobe, mucosa in the right middle lobe was noted to be thick [place] edematous, and has quite a bit of abnormal appearance, multiple biopsies from the right lobe bronchus were done, and lavage of the right middle lobe/medial segment was also performed. In the meantime the patient remains on antibiotics, and these will likely be adjusted based on the final culture from the BAL. Patient continues to have leukocytosis with WBC count of 17.9 hemoglobin 8.9, basic metabolic profile is normal Reevaluated today on 10/02/23, patient was seen by interventional radiology yesterday, and she underwent placement of a pigtail catheter into her right lung. Significant purulent drainage is noted into the pleural VAC, chest x-ray is showing improvement, clinically the patient is feeling better, remains on antibiotics, cultures are pending however the Gram stain is showing gram- positive cocci and that is from the pleural effusion fluid. BAL Gram stain is showing moderate PMNs and mixed organisms including gram-negative bacilli and gram-positive cocci. Patient is tolerating antibiotics well, and apparently she had one of placed treatment into the lung. Abscess. Patient refusing to have any more. WBC count is down today to 6.2 from 17.9 hemoglobin is 7.9, basic metabolic profile is normal. Renal profile is normal patient remains in the meantime on vancomycin and on aztreonam. The patient is seen today 10/03/2023 in follow-up on the regular medical floor. She is currently sitting up in a chair at the bedside. Awake and alert in no acute distress. Breathing quite a bit better. Maintaining good O2 saturations in the 90s on room air. She's been afebrile. Hemodynamically stable. Chest x- ray shows improvement in the right-sided empyema. Chest tube remains in place to wall suction. There was another 300 ML's of purulent drainage in the past 24 hours. She did receive alteplase/dornase earlier this morning per CT services. Pleural fluid cultures revealing no growth thus far. Bronchial wash cultures revealing no growth thus far. Sputum culture revealed no growth. White count 5.5. Hemoglobin 7.4. Sodium 136. Potassium 3.4. Bicarb 33. BUN 5. Creatinine 0.52. Glucose 91. She remains on aztreonam and vancomycin. The patient is seen today 10/04/2023 in follow-up on the regular medical floor. She is awake and alert in no acute distress. Sitting up in bed. Maintaining good O2 saturations in the 90s on 4 L/m per nasal cannula. She did undergo bronchoscopy with BAL and biopsies on 10/01/2023. Cytology pending. Pleural fluid cultures are showing gram-positive bacilli. White count 9.2. Hemoglobin 8.1. Platelets 536. Sodium 137. Potassium 3.1. Bicarb 35. BUN 4. Creatinine 0.43. She is continued on aztreonam and vancomycin. Remains on bronchodilators. She does have a productive cough of dark brown colored sputum. Another sputum culture will be sent. Chest x-ray continues to show a small right apical pneumothorax which is increased from prior. There is haziness to the right lung which is unchanged. Pulling about 750 MLS on her incentive spirometer. Right-sided pigtail catheter remains in place to continuous wall suction with approximately 170 ML's of purulent drainage in the past 24 hours. The patient is seen today 10/05/2023 in follow-up on the regular medical floor. She is currently resting in bed. Awake and alert in no acute distress. Feeling a bit better today compared to yesterday. Less cough and congestion. Chest x- ray continues to show a small right apical pneumothorax. Continued haziness to the right lung, pigtail catheter remains in place. Remains to suction. No leak noted. Continued on aztreonam and vancomycin. Pleural fluid culture was positive for gram positive bacilli. Sputum culture pending. Bronchial wash cultures revealed no growth. White count 6.6. Hemoglobin 7.8. Platelets 531. Sodium 138. Potassium 2.4. Bicarb 36. BUN 6. Creatinine 0.39. AST 18. ALT 16. Alk phos 117. Pro-calcitonin 0.15. She continues working well with the incentive spirometer. Continued on bronchodilators. The patient is seen today 10/06/2023 in follow-up on the regular medical floor. She is currently sitting up at the bedside. Maintaining good O2 saturations in the upper 90s on 2 L/m per nasal cannula. Awake and alert in no acute distress. Continues to feel a bit better each day. Still not quite back to her baseline. Chest x-ray reveals stable appearance of the right lung with pneumothorax versus cavitation apex. Small effusion. Pigtail catheter remains in place. Continues to suction. No leak noted. Pleural fluid cultures revealing brevibacterium species. Sodium 144. Potassium 3.3. Bicarb 35. BUN 6. Creatinine 0.4. Glucose 92. She is continued on vancomycin and aztreonam. Continued on bronchodilators. Continued on Mucinex. The patient is seen today 10/07/2023 in follow-up on the regular medical floor. She is awake and alert in no acute distress. Feeling a bit better today compared to yesterday. Maintaining good O2 saturations in the 90s on 2 L per nasal cannula. Normal saline at 20 ML's per hour. Chest x-ray reveals right apical lucency persists which may reflect loculated pneumothorax versus cavitary process. Right midlung field pigtail catheter remains in place overlying the stable opacity. Subpulmonic right basilar effusion. Left lung is clear. Computed tomography scan of the chest revealed residual lung abscess with significant fluid content remaining. There is thickening of the right pectoralis major musculature with some air and possibly fluid within and may relate to developing infection. Pigtail catheter appears to traverse through the chest wall along the inferior margin of this potential collection. Bilateral pleural effusions as mentioned. Hemoglobin 39. Potassium 3.5. Bicarb 30. BUN 9. Creatinine 0.40. She is continued on vancomycin. Completed aztreonam. The patient is seen today 10/08/2023 in follow-up on the regular medical floor. She is sitting up at the bedside. Awake and alert in no acute distress. Denies any worsening shortness of breath, cough or congestion. He is maintaining good O2 saturations in the 90s on 2 L/m per nasal cannula. She is being treated per Brevibacterium found in her pleural fluid. A PICC line was placed yesterday. She is continued on vancomycin. Completed Azactam. Awaiting interventional radiology to discontinue her pigtail catheter. Sodium 138. Potassium 4.0. Bicarb 39. BUN 10. Creatinine 0.43. Glucose 82. Follow-up chest x-ray is unchanged with right thoracotomy tube in place in right apical lucency. She is being followed by CT services and she may require right middle lobectomy. The patient is seen today 10/09/2023 in follow-up on the regular medical floor. She is awake and alert in no acute distress. She is maintaining good O2 saturations in the 90s on 2 L/m per nasal cannula. Right-sided pigtail catheter remains in place to waterseal. She states she is feeling about the same. improvement but no worse. She is continued on DuoNeb inhalations. Remains on antibiotics in the form of vancomycin. Chest x-ray shows stable appearance post lobectomy. Right apical pneumothorax or cavitation is stable. Catheter in good position. Bronchial wash cultures positive for Brunilda. Pleural fluid cultures positive for brevibacterium species. Sputum culture revealed no growth. White count 7.0. Hemoglobin 7.3. Platelets 367. Sodium 144. Potassium 4.5. Bicarb 37. BUN 7. Creatinine 0.4. Glucose 88. The patient is seen today 10/10/2023 in follow-up on the regular medical floor. She is sitting up in bed. Awake and alert in no acute distress. Continues to maintain good O2 saturations in the 90s on 2 L/m per nasal cannula. Chest x-ray is essentially unchanged. Continues with a small right apical pneumothorax post right upper lobectomy. Right-sided pigtail catheter remains in place to waterseal. Minimal drainage. Denies to work well with the incentive spirometer, pulling nearly 1500 ML's. Pleural fluid cultures was positive for Leah bacterium species. Sputum culture revealed no growth. Bronchoalveolar lavage cultures revealed no growth. No new labs. She remains on vancomycin. Continued on bronchodilators, Mucinex. On today's evaluation of 10/11/2023, the patient's is resting comfortably in bed. Patient is currently on 2 L of oxygen by nasal cannula with a pulse ox of 98%. The most recent chest x-ray from today shows a small apical pneumothorax on the right. The left lung is clear. There is a stable hazy right lung capacity with a tube in place. The patient continues to drain purulent material from the right-sided chest tube with this in the order of 20 mL. Approximately 20-40 mL of purulent drainage has been obtained from the right lung and the culture was positive for Brevibacterium species. The antibiotic coverage is with vancomycin. Infectious diseases on the case. The labs were not done today. Most recent labs were reviewed. On today's evaluation of 10/12/2023, the patient is essentially stable and unchanged compared to yesterday. She remains on O2 at 2 L nasal cannula. Output from the right-sided pigtail catheter is minimal at this point in time in the order of 50 mL over the past 12 hours. The patient remains on vancomycin. Repeat CAT scan of the chest was done and there is no significant interval change in the collection involving the right middle lobe. The surgical pigtail catheter in place. The area is measured to be around 7.3 x 5.5 cm in size which is comparable to last measurements. Patchy infiltrate is also seen in the posterior segment of the right lower lobe and a small right-sided pleural effusion and a small left-sided pleural effusion is also present. The patient denies having any pain. The white cell cause of 4.8 with a hemoglobin of 9. BUN is at 8 with a creatinine of 0.46 and a sodium level is at 138. Vancomycin trough levels of 15.2. Surgeries on the case and catheterization for another surgical expiration of the right lung. On 10/13/2023, the patient is being seen in the intensive care unit she is currently postop. The patient was taken to the operating room today and the patient underwent a redo thoracotomy, extensive lysis of adhesions, right middle lobectomy. During the process, there was significant amount of blood loss a total of 6 units of packed RBC and treated for fresh frozen plasma and 1 unit of platelets. She was extubated off when she was transferred to the intensive care unit. Currently she is on a simple mask that will be weaned down to nasal cannula. Her blood pressure is soft around 91/57 and the patient is currently on Jesu-Synephrine at 0.5 mcg/kg/m. She is afebrile. She has 2 right-sided chest tubes in place. The chest x-ray showing probably a tiny right apical pneumothorax. There are postsurgical changes in the right lung. The right hemidiaphragm is slightly elevated and there may be some limited effusion. Chest tubes are all in good location. There is minimal amount of air leak and the apical chest tube. Output from the chest tube has been in the order of 300 mL in each chest tube since arrival from the operating room. I was able to insert a triple-lumen catheter in the right IJ. The patient has adequate pain control for the time being. She is on DuoNeb updrafts. She is on epidural fentanyl and bupivacaine for pain control. She is alert and awake and comm unicating at this point in time. She is slightly lethargic due to her postop state. She remains on vancomycin. Postop labs are pending for now. Of 10/14 2023, the patient is postop day #1 following thoracotomy, right middle lobe resection and extensive lysis of adhesions. The patient is awake and alert and since she is sitting up on a recliner. She is using the incentive spirometer. She is falling approximately 1000 on the incentive spirometer. She has a right anterior and posterior chest tube. Her chest tube is still showing air leak. Total amount of output from the anterior chest tube has been 550 mL to of the operating room. The posterior chest tube has drained approximately 100 mL since the operating room. The patient is still on Jesu- Synephrine which is running at 1.5 mcg/kg/m. She remains on vancomycin. She is on oxygen at 2 L nasal cannula. She is afebrile. She is hemodynamically stable. Cardiac rhythm is sinus. Pulse ox is 94%. She received a total of 7 units of packed RBC yesterday, she also received fresh frozen plasma and platelets. Blood work from today shows a WBC count of 18, hemoglobin of 10, platelet count of 246, sodium is at 134, BUN is at 13 with a creatinine of 0.4. On 10/15/2023, patient is awake and alert and sitting up on a chair. The patient is comfortable. She is complaining of pain along the right chest. Epidural fentanyl was discontinued. The patient is taken oxycodone 10 mg every 4 hours on a when necessary basis. She is also on Toradol. Antibiotic coverage is with meropenem and vancomycin. Meanwhile, she is on 2 L of oxygen by nasal cannula. She was having some issues with a low CVP and hypotension yesterday. Jesu-Synephrine was weaned off and discontinued. She was given IV fluids. Currently she is on a low-dose vasopressin at 0.02 units per minutes. The patient otherwise is producing adequate amount of urine output. She is awake and alert. The right-sided chest tubes are still in place. The patient has an apical chest tube is still leaking and the output from the chest tube is in order of 100 mL over the past 8 hours. No evidence of any air leak on the posterior chest tube which is running approximately 70 mL's over the past 8 hours. The patient had a follow-up chest x-ray today. No evidence of any pneumothorax. Chest tubes are in adequate location. Patient is set up postthoracotomy. The patient also developed a small right posterior atelectasis/pleural effusion. Left lung remains clear. Objective - Vital Signs Vital signs: Vital Signs Temp 97.7 F 10/15/23 04:00 Pulse 96 10/15/23 09:30 Resp 33 H 10/15/23 07:00 BP 107/56 10/15/23 07:00 Pulse Ox 94 L 10/15/23 07:00 FiO2 Intake & Output 10/14/23 10/15/23 10/15/23 18:59 06:59 18:59 Intake Total 531.829 2565.271 105 Output Total 1320 930 23 Balance -777.971 548.271 82 Weight 81 kg 78.8 kg Intake: IV 3 600 75 Pressure bag 3 Sodium Chloride 0.9% 1, 375 000 ml @ 50 mls/hr IV . Q20H [facility] Rx#:[id number] Sodium Chloride 0.9% 1, 225 75 000 ml @ 75 mls/hr IV . [id number] [facility]INA Rx#:[id number] Intake, IV Titration 339.029 758.271 Amount ACETAMINOPHEN IV (For NPO 100 ) 1,000 mg In Empty Bag 1 bag @ 400 mls/hr IVPB Q6H [facility] Rx#:[id number] Phenylephrine 40 mg In 281.779 274.825 Sodium Chloride 0.9% 250 ml @ 0.5 MCG/KG/MIN 12. 184 mls/hr IV .[id number] [facility]INA Rx#:[id number] Ropivacaine 250 mg 5.800 fentaNYL (PF) 1,250 mcg In Sodium Chloride 0.9% 175 ml @ Per Protocol EPIDURAL .Q0M PRN Rx#: [id number] Ropivacaine 250 mg 51.45 fentaNYL (PF) 625 mcg In Sodium Chloride 0.9% 188 ml @ Per Protocol EPIDURAL .Q0M PRN Rx#: [id number] Sodium Chloride 0.9% 1, 75 000 ml @ 75 mls/hr IV . [id number] [facility] Rx#:[id number] Vancomycin 1,250 mg In 250 Sodium Chloride 0.9% 250 ml @ 125 mls/hr IVPB Q12H [facility] Rx#:[id number] Vasopressin 20 unit In 58.446 Sodium Chloride 0.9% 50 ml @ 0.04 UNITS/MIN 6.12 mls/hr IV .Q8H20M [facility] Rx# :[id number] Oral 200 120 30 Output: Chest Tube Drainage 355 235 10 R. Chest Tube - A 210 155 0 R. Chest Tube - B 145 80 10 Urine 965 695 13 Other: Voiding Method Indwelling Catheter Indwelling Catheter # Bowel Movements 1 1 ABP, PAP, CO, CI - Last Documented Arterial Blood Pressure 81/41 - Exam GENERAL EXAM: Alert, pleasant, fatigued, 57-year-old female, resting in bed, on 2 L nasal cannula, in no apparent distress. HEAD: Normocephalic. EYES: Normal reaction of pupils, equal size. NOSE: Clear with pink turbinates. THROAT: No erythema or exudates. NECK: No masses, no JVD. CHEST: No chest wall deformity. The patient has 2 right-sided chest tubes in place, intermittent air leak in the right apical chest tube, the surgical one- sided dry clean and intact LUNGS: Equal air entry with crackles in the right lung base. CVS: S1 and S2 normal with no audible murmur, regular rhythm. ABDOMEN: No hepatosplenomegaly, normal bowel sounds, no guarding or rigidity. SPINE: No scoliosis or deformity SKIN: No rashes CENTRAL NERVOUS SYSTEM: No focal deficits, tone is normal in all 4 extremities. EXTREMITIES: There is no peripheral edema. No clubbing, no cyanosis. Peripheral pulses are intact. - Labs CBC & Chem 7: 10/15/23 03:50 10/15/23 03:50 Labs: Abnormal Lab Results - Last 24 Hours (Table) 10/11/23 10/14/23 10/14/23 Range/Units 15:38 15:40 16:49 WBC 15.6 H (3.8-10.6) k/uL RBC 3.02 L (3.80-5.40) m/uL Hgb 8.9 L (11.4-16.0) gm/dL Hct 27.0 L (34.0-46.0) % RDW 16.8 H (11.5-15.5) % Sodium (137-145) mmol/L Creatinine (0.52-1.04) mg/dL Glucose (74-99) mg/dL Calcium (8.4-10.2) mg/dL C-Reactive Protein 21.3 H (<1.0) mg/dL Total Protein (6.3-8.2) g/dL Albumin (3.5-5.0) g/dL Procalcitonin (0.02-0.09) ng/mL Crossmatch See Detail 10/14/23 10/15/23 10/15/23 Range/Units 16:49 03:50 03:50 WBC (3.8-10.6) k/uL RBC 2.54 L (3.80-5.40) m/uL Hgb 7.8 L (11.4-16.0) gm/dL Hct 23.0 L (34.0-46.0) % RDW 16.6 H (11.5-15.5) % Sodium 132 L (137-145) mmol/L Creatinine 0.44 L (0.52-1.04) mg/dL Glucose 117 H (74-99) mg/dL Calcium 7.2 L (8.4-10.2) mg/dL C-Reactive Protein (<1.0) mg/dL Total Protein 4.1 L (6.3-8.2) g/dL Albumin 1.9 L (3.5-5.0) g/dL Procalcitonin 0.94 H (0.02-0.09) ng/mL Crossmatch Assessment and Plan Plan: Thoracotomy with extensive lysis of adhesions and right middle lobectomy. The patient is postop day #2 . Surgery was done on 10/13/2023 and the patient is currently in the intensive care unit. Patient has 2 right-sided chest tubes in place. There was significant amount of blood loss and the patient's is a total of 7 units of packed RBC, 2 units of fresh frozen and 1 unit of platelets. The patient has an anterior chest tube with this is showing air leak, the posterior chest tube is not. Output from the chest tube is reasonable at this point in time. The chest x-ray was noted. There is development of a small right-sided pleural effusion. No evidence of any pneumothorax. Continues to have air leak through the anterior chest tube. Hemodynamically improved and the patient is currently requiring only a physiologic dose of vasopressin. She is off Jesu- Synephrine. Hypotension, improved with fluids currently on physiologic dose of vasopressin, she is off Jesu-Synephrine for now. IV fluids are in order of normal saline at rate of 75 mL an hour. Non-small cell lung cancer status post right upper lobectomy, done on 08/19/2023. Two regional hilar lymph nodes were positive for metastasis. No other lymph nodes involved. The patient had T2b N 1 M0 disease. Persistent postop right apical pneumothorax, improved Right lung abscess, A CT of the chest 09/28/2023 demonstrated focal severe consolidation of the right upper lobe measuring 7.7 cm with what appears to be a fluid density concerning for pulmonary abscess. Pleural fluid culture positive for gram positive bacilli/brevibacterium species. Remains on vancomycin. Follow-up computed tomography scan today 10/07/2023 continues to show a residual lung abscess measuring approximate 6.0 x 5.0 cm, previously 8.2 x 7.4 cm's. Leukocytosis, improved Normocytic normochromic anemia, without any obvious blood loss Chronic obstructive pulmonary disease, with a FEV1 53% of predicted, stable. Former tobacco dependence Plan: Aggressive pulmonary toileting Daily chest x-ray Monitor upper from the chest tubes Pain control with oxycodone and Toradol. The epidural fentanyl catheter was removed. This is probably contributing to her hypotension. Pain is under adequate control BP is improved and is currently up to 6 Patient is off Jesu-Synephrine Wean off vasopressin discontinue Continue vancomycin and meropenem We'll keep the patient intensive care unit for now. Titrate oxygen flow to maintain a saturation above 90%, currently on 2 L of oxygen by nasal cannula We will continue to follow
[2023-10-15] MEDS: LIDOCAINE 4% PATCH TOPICAL SCH (11:45)
[2023-10-15] MEDS: CYCLOBENZAPRINE 10 MG TAB PO SCH ×2 (11:45→20:45)
--- NOTE | 2023-10-15 15:55 | P.PN ---
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 History of non-small cell carcinoma with neuroendocrine differentiation, consistent with large cell neuroendocrine carcinoma status post robotic-assisted right upper lobectomy on 08/19/2023 and subsequent bronchoscopy with placement of right thoracostomy tube, chronic tobacco dependence with recent cessation, COPD, asthma, hyperlipidemia, GERD, diverticulitis status post bowel resection, osteoarthritis POD #2 Redo Thoracotomy, Extensive lysis of adhesions, Right middle lobectomy, Cryo-ablation of intercostal nerves 3-7. The patient was seen and examined in follow-up today 10/15/2023 at her bedside in the intensive care unit. Currently sitting ascending up to bedside chair, is awake, alert, oriented 3 and is in no acute apparent distress. Oxygen saturations are 92% on 2 L nasal cannula and she is achieving 500-750 mL on her incentive spirometry with encouragement. The patient denies any complaints of shortness of breath although is complaining of some surgical type pain to her right thoracotomy incision site. Epidural in place and is running at 1 mL per hour of fentanyl and bupivacaine managed by anesthesia. Vasopressin drip is infusing at 0.03 units per minute. Bedside telemetry showing normal sinus rhythm heart rate 84 BPM. Right IJ triple-lumen catheter in place with continuous CVP monitoring, current CVP pressure 10 mmHg. Right anterior and posterior pleural chest tubes remain in place to low continuous wall suction -20 cm H2O. Intermittent air leak present to her right anterior pleural chest tube. Right pleural chest tubes are draining thin serosanguineous drainage with her anterior chest tube draining 100 mL of thin serosanguineous drainage in the last 8 hours and 400 mL output in the last 24 hours, posterior pleural chest tube draining 70 mL output in the last 8 hours and 310 mL output in the last 24 hours. Jimenez cath remains in place for accurate I's and O's, urine output in the last 8 hours was 265 mL. Laboratory and chest x-ray results reviewed. Objective - Vital Signs Vital signs: Vital Signs Temp 98 F 10/15/23 08:00 Pulse 95 10/15/23 15:30 Resp 25 H 10/15/23 15:30 BP 102/52 10/15/23 15:30 Pulse Ox 96 10/15/23 15:30 FiO2 Intake & Output 10/14/23 10/15/23 10/15/23 18:59 06:59 18:59 Intake Total 212.023 1333.271 1397.771 Output Total 1320 930 353 Balance -777.971 935.155 5244.771 Weight 81 kg 78.8 kg Intake: IV 3 600 545 Pressure bag 3 Sodium Chloride 0.9% 1, 375 000 ml @ 50 mls/hr IV . Q20H [facility] Rx#:[id number] Sodium Chloride 0.9% 1, 225 545 000 ml @ 75 mls/hr IV . [id number] [facility] Rx#:[id number] Intake, IV Titration 339.029 758.271 22.771 Amount ACETAMINOPHEN IV (For NPO 100 ) 1,000 mg In Empty Bag 1 bag @ 400 mls/hr IVPB Q6H [facility] Rx#:[id number] Phenylephrine 40 mg In 281.779 274.825 Sodium Chloride 0.9% 250 ml @ 0.5 MCG/KG/MIN 12. 184 mls/hr IV .[id number] [facility] Rx#:[id number] Ropivacaine 250 mg 5.800 fentaNYL (PF) 1,250 mcg In Sodium Chloride 0.9% 175 ml @ Per Protocol EPIDURAL .Q0M PRN Rx#: [id number] Ropivacaine 250 mg 51.45 fentaNYL (PF) 625 mcg In Sodium Chloride 0.9% 188 ml @ Per Protocol EPIDURAL .Q0M PRN Rx#: [id number] Sodium Chloride 0.9% 1, 75 000 ml @ 75 mls/hr IV . [id number] [facility] Rx#:[id number] Vancomycin 1,250 mg In 250 Sodium Chloride 0.9% 250 ml @ 125 mls/hr IVPB Q12H [facility] Rx#:[id number] Vasopressin 20 unit In 58.446 22.771 Sodium Chloride 0.9% 50 ml @ 0.04 UNITS/MIN 6.12 mls/hr IV .Q8H20M [facility] Rx# :[id number] Oral 200 120 830 Output: Chest Tube Drainage 355 235 130 R. Chest Tube - A 210 155 60 R. Chest Tube - B 145 80 70 Urine 965 695 223 Other: Voiding Method Indwelling Catheter Indwelling Catheter Indwelling Catheter # Bowel Movements 1 2 ABP, PAP, CO, CI - Last Documented Arterial Blood Pressure 81/41 - Exam CONSTITUTIONAL: Appears comfortable, cooperative, no acute distress. RESPIRATORY: Lungs sounds diminished bilaterally. Respirations are symmetrical, nonlabored. Currently on 2 L nasal cannula with oxygen saturation 92%. Able to achieve 500-750 mL on incentive spirometry. Strong cough. CARDIOVASCULAR: S1, S2 present. Regular rate and rhythm, sinus rhythm on t elemetry. Palpable peripheral pulses bilaterally. No edema present. No calf pain or tenderness noted. SCDs present. GASTROINTESTINAL: Abdomen soft, nontender, nondistended. Active bowel sounds p resent 4 quadrants. Tolerating diet. Passing flatus. GENITOURINARY: Jimenez catheter in place for accurate I's and O's. Urine output 265 mL in the last 8 hours. INTEGUMENTARY: Skin is warm and dry with evidence of good perfusion. Right chest thoracotomy incision well approximated, isela in place and covered with dry intact dressing. NEUROLOGIC: Cranial nerves II through XII intact. No focal deficits. Epidural remains in place. MUSKULOSKELETAL: Able to move all extremities, strength equal bilaterally, gait normal. PSYCHIATRIC: Alert and oriented to person place and time, appropriate affect, intact judgment and insight. INVASIVE LINES AND TUBES: Right pleural anterior chest tube present and connected to wall suction, intermittent air leak is present. Right pleural chest tube with 100 mL serosanguineous drainage overnight, 400 mL in the last 24 hours. Right pleural posterior chest tube connected to low continuous wall suction, no air leak is present. Draining thin serosanguineous drainage with 70 mL serosanguineous drainage overnight, 310 mL in the last 24 hours. - Allied health notes Allied health notes reviewed: nursing - Labs CBC & Chem 7: 10/15/23 03:50 10/15/23 03:50 Labs: Abnormal Lab Results - Last 24 Hours (Table) 10/11/23 10/14/23 10/14/23 Range/Units 15:38 15:40 16:49 WBC 15.6 H (3.8-10.6) k/uL RBC 3.02 L (3.80-5.40) m/uL Hgb 8.9 L (11.4-16.0) gm/dL Hct 27.0 L (34.0-46.0) % RDW 16.8 H (11.5-15.5) % Sodium (137-145) mmol/L Creatinine (0.52-1.04) mg/dL Glucose (74-99) mg/dL Calcium (8.4-10.2) mg/dL C-Reactive Protein 21.3 H (<1.0) mg/dL Total Protein (6.3-8.2) g/dL Albumin (3.5-5.0) g/dL Procalcitonin (0.02-0.09) ng/mL Crossmatch See Detail 10/14/23 10/15/23 10/15/23 Range/Units 16:49 03:50 03:50 WBC (3.8-10.6) k/uL RBC 2.54 L (3.80-5.40) m/uL Hgb 7.8 L (11.4-16.0) gm/dL Hct 23.0 L (34.0-46.0) % RDW 16.6 H (11.5-15.5) % Sodium 132 L (137-145) mmol/L Creatinine 0.44 L (0.52-1.04) mg/dL Glucose 117 H (74-99) mg/dL Calcium 7.2 L (8.4-10.2) mg/dL C-Reactive Protein (<1.0) mg/dL Total Protein 4.1 L (6.3-8.2) g/dL Albumin 1.9 L (3.5-5.0) g/dL Procalcitonin 0.94 H (0.02-0.09) ng/mL Crossmatch - Imaging and Cardiology Chest x-ray: report reviewed, image reviewed Assessment and Plan Assessment: Necrosis and lung abscess of right middle lobe, computed tomography scan of the chest on 09/28/2023 showing a small right pleural effusion, a residual loculated small anterior upper lung pneumothorax measuring 4.5 cm, a focal severe c onsolidation of the adjacent right upper lung measuring 7.7 cm, a fluid density, possible severe pneumonia or pulmonary abscess, and possible second ovary abscess or cavity necrosis with air-fluid level anterior right mid lung measuring 9.2 x 8.2 x 7.4 cm, status post right middle lobectomy Leukocytosis, likely secondary to above Normocytic normochromic anemia, no obvious blood loss Non-small cell carcinoma with neuroendocrine differentiation, consistent with large cell neuroendocrine carcinoma, 2 of 4 hilar nodes positive on pathology, status post robotic-assisted right upper lobectomy on 08/19/2023 and subsequent bronchoscopy with placement of right thoracostomy tube COPD with a recent FEV1 showing a predicted value of 87% and a DLCO 55% of predicted value Asthma Hyperlipidemia GERD History of diverticulitis, status post bowel resection Chronic tobacco dependence with recent cessation Osteoarthritis Plan: We will place her right pleural anterior and posterior chest tubes to water seal. Continue to monitor for airleak resolution. Epidural management recommendations per anesthesia. Request epidural to be removed today and transitioned to oxycodone by mouth for additional pain control. Wean oxygen as tolerated. Encourage use of incentive spirometry 10 times every hour while awake. Continue aggressive pulmonary toileting. Monitor daily labs and chest x-rays. GI and DVT prophylaxis. Continue to follow pathology results, remains pending. Continue to monitor continuous CVP. Increase activity as tolerated. Out of bed for all meals. Wean vasopressin drip as tolerated to keep a systolic blood pressure greater than or equal to 100 mmHg or a map greater than 70 mmHg. Antibiotic management per infectious disease recommendations. She is currently on Merrem 1 g IV piggyback every 8 hours and vancomycin 1250 mg IV piggyback every 12 hours. More recommendations to follow based on patient's clinical course. Time with Patient: Greater than 30
[2023-10-16] MEDS: KETOROLAC 15 MG/ML 1 ML VIAL IVP SCH ×4 (00:19→17:02)
[2023-10-16] MEDS: HEPARIN SODIUM,PORCINE 5,000 UNIT/ML 1 ML VIAL SQ SCH ×3 (00:19→16:51)
[2023-10-16] MEDS: MEROPENEM 1 GM in SODIUM CHLORIDE 0.9% 100 ML IVPB SCH ×3 (00:20→16:53)
--- NOTE | 2023-10-16 04:08 | P.PN ---
Subjective Progress Note Date: 10/15/23 Patient evaluated on medical floor. Pigtail catheter remains in place with 20 mls of output documented overnight. Patient continues with productive cough brown tinged sputum and repeat sputum culture has been sent and pending at this time. Chest xray today reveals cavitation vs. pneumothorax right apex. Small effusion may be present. Bronchial washings reveal inflammation, negative for diagnostic malignancy. Patient does have known NSCLC. Remains on IV aztreonam and IV vancomycin. Procalcitonin level 0.15. 10/06/2023 Patient evaluated sitting up in bed. No drainage noted from atrium overnight. P igtail catheter remains n place. Chest xray today reveals stable appearance right lung with pneumothorax vs. cavitation apex. Small effusion may be present. Repeat sputum culture final showing normal hubert. The pleural fluid is finalized showing brevibacterium species. 10/07/2023 Patient is evaluated today sitting up in bed. Legs are swollen, patient has been receiving IV fluids which will be stopped. IV lasix x 1 will be given and recommending SCDs for this. Edema is non pitting. Patient had chest xray this AM showing possible loculated pneumothorax vs. cavitary process. Subpulmonic right basilar effusion. The left lung is clear. Pigtail catheter remains in place again minimal to no drainage overnight. CT following closely. Repeat sputum showing normal hubert. Remains on IV antibiotics. Patient remains on room air. 10/08/[address] yesterday showing residual lung abscess with significant fluid content remaining. Thickening of the right pectoralis major muscle with s ome air and possibly fluid within and may relate to developing infection in this location. Pigtail catheter remains in place. Bilateral pleural effusions. Small left and moderate right pleural effusion. Sodium 139, renal function stable. 10/09/2023 Patient evaluated today sitting up in bed. Lower extremity edema is improved after a second dose of IV lasix, remains off fluids she is eating and drinking well. BENJAMÍN hose to be applied today should help with the swelling as well. Patient continues with the pigtail catheter which has had minimal drainage over the last 2 days. Patient will be going for thoracotomy and right middle lobectomy on Wednesday. Patient remains on IV vancomycin per ID and PICC line is in place. 10/10/2023 Patient evaluated today sitting up in bed. Remains on 2L of oxygen. Lower extremity edema improved. Continues on IV vancomycin. Pending repeat chest xray reports. Cardiothoracic following closely patient will go for right middle lobectomy and thoracotomy on Wednesday. 10/13/2023 Patient is seen in follow-up this morning currently nothing by mouth as she is scheduled to undergo thoracotomy with right middle lobectomy with CT surgery. Pulmonary following closely patient continues on 2 L of oxygen along with antibiotics. Plan is for going to ICU postop and will await surgical report. Patient is sitting up with multiple family members at bedside with questions and concerns were answered to the best of our ability. Patient is currently afebrile with no reports of worsening shortness of breath. Patient denies any nausea or vomiting and currently nothing by mouth for the procedure. 10/14/2023 Patient is seen in follow-up in the ICU status post right middle lobectomy with CT surgery yesterday. Patient with multiple medical consultations following continues on low-dose pressor support for hypotension. Patient also on epidural pain pump with anesthesia following has been titrating meds accordingly due to continued low blood pressure patient has been receiving large amounts of fluid showing some minimal improvement in blood pressures. Patient is alert and oriented sitting up in the chair and continued on 2 L via nasal cannula. Patient is afebrile and maintained on meropenem along with vancomycin with infectious disease following. Encouraged incentive spirometer use and awaiting follow-up labs. Patient continues with indwelling Jimenez catheter for continued strict intake and output monitoring. PT/OT therapy for evaluation. 10/15/2023 Patient is seen in follow-up today currently sitting up in the chair remains in the ICU with multiple medical consultations following. Patient continues on meropenem along with vancomycin and awaiting cultures. Patient continues with right-sided chest tubes being placed to waterseal. Patient continues on low- dose vasopressin his blood pressures are low. IV fluids being discontinued as chest x-ray shows some pleural effusions. Blood pressures are marginal and will be monitored closely in the ICU. Patient continues on 2-3 L via nasal cannula continues to report shortness of breath although no worse. Patient is having chest wall pain at the chest tube sites and pain medications being adjusted including any oral medications. Patient is afebrile and hemoglobin is stable although trending down but above 7 today. Recommend to monitor closely and transfuse of 7 or less. No reported nausea or vomiting patient tolerating diet needs encouragement with meals. Review of Systems Constitutional: Denied any fatigue denied any fever. Cardio vascular: denied any chest pain, palpitations, reports chest wall pain with chest tubes Gastrointestinal: denied any nausea, vomiting, diarrhea Pulmonary: Reports shortness of breath that Worsens with exertion Neurologic denied any new focal deficits All medications were reviewed PHYSICAL EXAMINATION: GENERAL: The patient is alert and oriented x3, . Well developed, well nourished. Obese HEENT: Pupils are round and equally reacting to light. EOMI. No scleral icterus. No conjunctival pallor. Normocephalic, atraumatic. No pharyngeal erythema. No thyromegaly. CARDIOVASCULAR: S1 and S2 muffled PULMONARY: Diminished breath sounds bilaterally and more so on the right with Crackles in the right lung base. Right thoracotomy tubes in place. With serosanguineous output noted ABDOMEN: Soft, nontender, nondistended, normoactive bowel sounds. No palpable organomegaly. MUSCULOSKELETAL: No joint swelling or deformity. EXTREMITIES: No cyanosis, clubbing +1 peripheral edema/ankle edema non pitting. NEUROLOGICAL: Gross neurological examination did not reveal any focal deficits. Diffusely weak SKIN: No rashes. Assessment: Pneumonia with possible lung abscess, status post bronchoscopy, status post right middle lobe lobectomy on 10/13/2023 Rule out Cavitary lung lesion/pulmonary abscess as well as possible second ovary abscess or cavity necrosis Non-small cell lung cancer status post right upper lobectomy, done on 08/19/2023. 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 The bronchial washings are negative for malignancy and sputum showing gram positive. Repeat sputum culture showing normal hubert. Infectious disease is following Patient is status post right middle lobe ectomy and continues with 2 right-sided chest tubes showing serosanguineous fluid. Repeat chest x-ray ordered showing some pleural effusions and IV fluids being discontinued Patient continues on low-dose vasopressin for hypotension. Patient also continues on epidural pain pump and is being discontinued today per anesthesia. Oral medications being added to the pain regimen Continue BENJAMÍN hose and to elevate lower extremities while sitting. Continue to encourage incentive spirometer 10 x an hour while awake. Patient is currently maintained on 2 L via nasal cannula recommend wean FiO2 as tolerated Increase activity level. Will need extensive PT/OT therapy postoperatively once cleared by CT surgery Repeat labs along with chest x-ray in the a.m. Due to multiple complex medical issues, prognosis is guarded The impression and plan of care has been dictated by Pamela Bryant, Nurse Practitioner as directed. Dr. Nitish MD I have performed a history and examination and MDM of this patient, discussed the same with the dictator, and agree with the dictator's assessment and plan as written ,documented as a scribe. Based on total visit time, I have performed more than 50% of the visit. Objective - Vital Signs Vital signs: Vital Signs Temp 97.7 F 10/15/23 04:00 Pulse 96 10/15/23 09:30 Resp 33 H 10/15/23 07:00 BP 107/56 10/15/23 07:00 Pulse Ox 94 L 10/15/23 07:00 FiO2 Intake & Output 10/14/23 10/15/23 10/15/23 18:59 06:59 18:59 Intake Total 988.665 5040.271 105 Output Total 1320 930 23 Balance -777.971 548.271 82 Weight 81 kg 78.8 kg Intake: IV 3 600 75 Pressure bag 3 Sodium Chloride 0.9% 1, 375 000 ml @ 50 mls/hr IV . Q20H [facility] Rx#:[id number] Sodium Chloride 0.9% 1, 225 75 000 ml @ 75 mls/hr IV . [id number] [facility] Rx#:[id number] Intake, IV Titration 339.029 758.271 Amount ACETAMINOPHEN IV (For NPO 100 ) 1,000 mg In Empty Bag 1 bag @ 400 mls/hr IVPB Q6H [facility] Rx#:[id number] Phenylephrine 40 mg In 281.779 274.825 Sodium Chloride 0.9% 250 ml @ 0.5 MCG/KG/MIN 12. 184 mls/hr IV .[id number] [facility] Rx#:[id number] Ropivacaine 250 mg 5.800 fentaNYL (PF) 1,250 mcg In Sodium Chloride 0.9% 175 ml @ Per Protocol EPIDURAL .Q0M PRN Rx#: [id number] Ropivacaine 250 mg 51.45 fentaNYL (PF) 625 mcg In Sodium Chloride 0.9% 188 ml @ Per Protocol EPIDURAL .Q0M PRN Rx#: [id number] Sodium Chloride 0.9% 1, 75 000 ml @ 75 mls/hr IV . [id number] [facility] Rx#:[id number] Vancomycin 1,250 mg In 250 Sodium Chloride 0.9% 250 ml @ 125 mls/hr IVPB Q12H [facility] Rx#:[id number] Vasopressin 20 unit In 58.446 Sodium Chloride 0.9% 50 ml @ 0.04 UNITS/MIN 6.12 mls/hr IV .Q8H20M [facility] Rx# :[id number] Oral 200 120 30 Output: Chest Tube Drainage 355 235 10 R. Chest Tube - A 210 155 0 R. Chest Tube - B 145 80 10 Urine 965 695 13 Other: Voiding Method Indwelling Catheter Indwelling Catheter # Bowel Movements 1 1 ABP, PAP, CO, CI - Last Documented Arterial Blood Pressure 81/41 - Labs CBC & Chem 7: 10/15/23 03:50 10/15/23 03:50 Labs: Abnormal Lab Results - Last 24 Hours (Table) 10/11/23 10/14/23 10/14/23 Range/Units 15:38 15:40 16:49 WBC 15.6 H (3.8-10.6) k/uL RBC 3.02 L (3.80-5.40) m/uL Hgb 8.9 L (11.4-16.0) gm/dL Hct 27.0 L (34.0-46.0) % RDW 16.8 H (11.5-15.5) % Sodium (137-145) mmol/L Creatinine (0.52-1.04) mg/dL Glucose (74-99) mg/dL Calcium (8.4-10.2) mg/dL C-Reactive Protein 21.3 H (<1.0) mg/dL Total Protein (6.3-8.2) g/dL Albumin (3.5-5.0) g/dL Procalcitonin (0.02-0.09) ng/mL Crossmatch See Detail 12/07/23 12/08/23 12/08/23 Range/Units 16:49 03:50 03:50 WBC (3.8-10.6) k/uL RBC 2.54 L (3.80-5.40) m/uL Hgb 7.8 L (11.4-16.0) gm/dL Hct 23.0 L (34.0-46.0) % RDW 16.6 H (11.5-15.5) % Sodium 132 L (137-145) mmol/L Creatinine 0.44 L (0.52-1.04) mg/dL Glucose 117 H (74-99) mg/dL Calcium 7.2 L (8.4-10.2) mg/dL C-Reactive Protein (<1.0) mg/dL Total Protein 4.1 L (6.3-8.2) g/dL Albumin 1.9 L (3.5-5.0) g/dL Procalcitonin 0.94 H (0.02-0.09) ng/mL Crossmatch
[2023-10-16] MEDS: CYCLOBENZAPRINE 10 MG TAB PO SCH ×3 (05:14→21:38)
[2023-10-16] MEDS: PANTOPRAZOLE 40 MG TABLET PO SCH (06:25)
[2023-10-16] MEDS: VASOPRESSIN 20 UNIT in SODIUM CHLORIDE 0.9% 50 ML IV SCH ×4 (06:28→19:08)
[2023-10-16] MEDS ORDERED: VANCOMYCIN TROUGH DUE 1 EACH MISC MISCELLANE ONE (07:00)
[2023-10-16 07:33] LABS: Anisocytosis Slight; Basophils % (A) 0 %; Eosinophils # (A) 0.1 k/uL (0-0.7); Eosinophils % (A) 3 %; HCT 23.8 % (34.0-46.0); HGB 7.8 gm/dL (11.4-16.0); Hypochromasia Moderate; Lymphocytes # (A) 0.7 k/uL (1.0-4.8); Lymphocytes % (A) 14 %; MCH 30.3 pg (25.0-35.0); MCHC 32.8 g/dL (31.0-37.0); MCV 92.6 fL (80.0-100.0); Mean Platelet Volume 8.2; Monocytes # (A) 0.2 k/uL (0-1.0); Monocytes % (A) 4 %; Neutrophils % (A) 77 %; Platelet Count 185 k/uL (150-450); RBC 2.57 m/uL (3.80-5.40); RDW 16.7 % (11.5-15.5); WBC 5.1 k/uL (3.8-10.6)
[2023-10-16 07:42] LABS: African American GFR (CKD) >90 (>60 ml/min/1.73 sqM); Anion Gap 5 mmol/L; Blood Urea Nitrogen 15 mg/dL (7-17); Calcium 7.5 mg/dL (8.4-10.2); Carbon Dioxide 28 mmol/L (22-30); Chloride 99 mmol/L (98-107); Glucose 90 mg/dL (74-99); Non-African American GFR(CKD) >90 (>60 ml/min/1.73 sqM); Potassium 3.8 mmol/L (3.5-5.1); Sodium 132 mmol/L (137-145)
[2023-10-16] MEDS: VANCOMYCIN 1,250 MG in SODIUM CHLORIDE 0.9% 250 ML IVPB SCH ×2 (07:50→21:38)
[2023-10-16] MEDS: FORMOTEROL FUMARATE 20 MCG/2 ML NEBU INHALATION SCH ×2 (08:50→20:04)
[2023-10-16] MEDS: IPRATROPIUM-ALBUTEROL 3 ML NEB INHALATION SCH ×4 (08:50→20:04)
--- NOTE | 2023-10-16 09:11 | XR ---
EXAMINATION TYPE: XR chest 1V portable DATE OF EXAM: 10/16/2023 Comparison: 10/15/2023 Clinical History: 57-year-old female Postoperative right middle lobectomy Findings: 2 right-sided chest tubes remain. Skin isela along the lateral aspect of the right hemithorax. Pleu ral-based thickening throughout the right hemithorax similar to slightly decreased. Patchy interstiti al changes persist throughout the right lung. Increasing patchy opacity left base. Left PICC tip not clearly identified due to the degree of penetration. Estimated to be at the cavoatrial junction. Post surgical changes right hilum and medial right upper lobe. Impression: 1. Postsurgical changes right hemithorax with [address]. No appreciable pneumothor[address] Pl eural-parenchymal opacities throughout the right side of the chest are fairly similar. 2. Slight increasing patchy atelectasis or infiltrate at the left base.
--- NOTE | 2023-10-16 10:15 | P.PN ---
Subjective Progress Note Date: 10/16/23 I am seeing this patient in consultation today 09/30/2023 for suspected pulmonary abscess. Patient is a 57-year-old white female with past medical history significant for right upper lobe non-small cell lung carcinoma status post robotic-assisted VATS involving a right upper lobectomy on August 19, . She did have a complicated postoperative hospital stay with a persistent right sided pneumothorax and opacification of the right midlung area. She has been closely followed up on an outpatient basis. She does follow Dr. Davey in the pulmonary office, and also had a office visit with Dr. Espino from cardiothoracic surgery on 09/17. She states that she has "not really been 100%" since surgery. More recently she has had symptoms of exertional shortness of breath, right-sided back pain, productive cough with yellow/green sputum sometimes pink tinged, and subjective fevers. She has received courses of Levaquin and doxycycline outpatient. A CT of the chest done 2 days ago demonstrated focal severe consolidation of the right upper lobe measuring 7.7 cm with what appears to be a fluid density concerning for pulmonary abscess. There is an adjacent residual loculated small anterior upper lung pneumothorax measuring 4.5 cm. There is a possible secondary pulmonary abscess or cavitary necrosis with air-fluid level anterior right mid lung measuring 9.2 x 8.2 x 7.4 cm. For this reason, she was directed to the emergency room yesterday. Patient was given doses of Levaquin and vancomycin in the emergency room. She does have a penicillin ALLERGY. Bronchoscopy with BAL done on 08/23/2023 did not identify significant bacterial growth. CBC shows a WBC count of 16, hemoglobin 9.6, hematocrit 30.4, platelets 694. BMP on arrival shows sodium 133, potassium 3.2, chloride 83, serum bicarbonate 34, BUN 12, creatinine 0.5, glucose 112. Normal saline infusing at 130 ML's per hour. Lactic acid level I.9. Patient is currently lying in bed, on 2 L/m nasal cannula, in no acute distress. SPO2 97%. She is slightly tachycardic with a heart rate of 116 bpm. She was febrile with a T-max of 100F. Blood cultures pending. Hemodynamically stable. Patient was seen and examined today on 10/01/23, seems to be doing about the same, continues to have cough and shortness of breath. Cough is productive with thick yellow phlegm. Underwent a bronchoscopy today , please refer to the full operative report. Patient was found to have significant area and secretions coming out of the right middle lobe, mucosa in the right middle lobe was noted to be thick MN edematous, and has quite a bit of abnormal appearance, multiple biopsies from the right lobe bronchus were done, and lavage of the right middle lobe/medial segment was also performed. In the meantime the patient remains on antibiotics, and these will likely be adjusted based on the final culture from the BAL. Patient continues to have leukocytosis with WBC count of 17.9 hemoglobin 8.9, basic metabolic profile is normal Reevaluated today on 10/02/23, patient was seen by interventional radiology yesterday, and she underwent placement of a pigtail catheter into her right lung. Significant purulent drainage is noted into the pleural VAC, chest x-ray is showing improvement, clinically the patient is feeling better, remains on antibiotics, cultures are pending however the Gram stain is showing gram- positive cocci and that is from the pleural effusion fluid. BAL Gram stain is showing moderate PMNs and mixed organisms including gram-negative bacilli and gram-positive cocci. Patient is tolerating antibiotics well, and apparently she had one of placed treatment into the lung. Abscess. Patient refusing to have any more. WBC count is down today to 6.2 from 17.9 hemoglobin is 7.9, basic metabolic profile is normal. Renal profile is normal patient remains in the meantime on vancomycin and on aztreonam. The patient is seen today 10/03/2023 in follow-up on the regular medical floor. She is currently sitting up in a chair at the bedside. Awake and alert in no acute distress. Breathing quite a bit better. Maintaining good O2 saturations in the 90s on room air. She's been afebrile. Hemodynamically stable. Chest x- ray shows improvement in the right-sided empyema. Chest tube remains in place to wall suction. There was another 300 ML's of purulent drainage in the past 24 hours. She did receive alteplase/dornase earlier this morning per CT services. Pleural fluid cultures revealing no growth thus far. Bronchial wash cultures revealing no growth thus far. Sputum culture revealed no growth. White count 5.5. Hemoglobin 7.4. Sodium 136. Potassium 3.4. Bicarb 33. BUN 5. Creatinine 0.52. Glucose 91. She remains on aztreonam and vancomycin. The patient is seen today 10/04/2023 in follow-up on the regular medical floor. She is awake and alert in no acute distress. Sitting up in bed. Maintaining good O2 saturations in the 90s on 4 L/m per nasal cannula. She did undergo bronchoscopy with BAL and biopsies on 10/01/2023. Cytology pending. Pleural fluid cultures are showing gram-positive bacilli. White count 9.2. Hemoglobin 8.1. Platelets 536. Sodium 137. Potassium 3.1. Bicarb 35. BUN 4. Creatinine 0.43. She is continued on aztreonam and vancomycin. Remains on bronchodilators. She does have a productive cough of dark brown colored sputum. Another sputum culture will be sent. Chest x-ray continues to show a small right apical pneumothorax which is increased from prior. There is haziness to the right lung which is unchanged. Pulling about 750 MLS on her incentive spirometer. Right-sided pigtail catheter remains in place to continuous wall suction with approximately 170 ML's of purulent drainage in the past 24 hours. The patient is seen today 10/05/2023 in follow-up on the regular medical floor. She is currently resting in bed. Awake and alert in no acute distress. Feeling a bit better today compared to yesterday. Less cough and congestion. Chest x- ray continues to show a small right apical pneumothorax. Continued haziness to the right lung, pigtail catheter remains in place. Remains to suction. No leak noted. Continued on aztreonam and vancomycin. Pleural fluid culture was positive for gram positive bacilli. Sputum culture pending. Bronchial wash cultures revealed no growth. White count 6.6. Hemoglobin 7.8. Platelets 531. Sodium 138. Potassium 2.4. Bicarb 36. BUN 6. Creatinine 0.39. AST 18. ALT 16. Alk phos 117. Pro-calcitonin 0.15. She continues working well with the incentive spirometer. Continued on bronchodilators. The patient is seen today 10/06/2023 in follow-up on the regular medical floor. She is currently sitting up at the bedside. Maintaining good O2 saturations in the upper 90s on 2 L/m per nasal cannula. Awake and alert in no acute distress. Continues to feel a bit better each day. Still not quite back to her baseline. Chest x-ray reveals stable appearance of the right lung with pneumothorax versus cavitation apex. Small effusion. Pigtail catheter remains in place. Continues to suction. No leak noted. Pleural fluid cultures revealing brevibacterium species. Sodium 144. Potassium 3.3. Bicarb 35. BUN 6. Creatinine 0.4. Glucose 92. She is continued on vancomycin and aztreonam. Continued on bronchodilators. Continued on Mucinex. The patient is seen today 10/07/2023 in follow-up on the regular medical floor. She is awake and alert in no acute distress. Feeling a bit better today compared to yesterday. Maintaining good O2 saturations in the 90s on 2 L per nasal cannula. Normal saline at 20 ML's per hour. Chest x-ray reveals right apical lucency persists which may reflect loculated pneumothorax versus cavitary process. Right midlung field pigtail catheter remains in place overlying the stable opacity. Subpulmonic right basilar effusion. Left lung is clear. Computed tomography scan of the chest revealed residual lung abscess with significant fluid content remaining. There is thickening of the right pectoralis major musculature with some air and possibly fluid within and may relate to developing infection. Pigtail catheter appears to traverse through the chest wall along the inferior margin of this potential collection. Bilateral pleural effusions as mentioned. Hemoglobin 39. Potassium 3.5. Bicarb 30. BUN 9. Creatinine 0.40. She is continued on vancomycin. Completed aztreonam. The patient is seen today 10/08/2023 in follow-up on the regular medical floor. She is sitting up at the bedside. Awake and alert in no acute distress. Denies any worsening shortness of breath, cough or congestion. He is maintaining good O2 saturations in the 90s on 2 L/m per nasal cannula. She is being treated per Brevibacterium found in her pleural fluid. A PICC line was placed yesterday. She is continued on vancomycin. Completed Azactam. Awaiting interventional radiology to discontinue her pigtail catheter. Sodium 138. Potassium 4.0. Bicarb 39. BUN 10. Creatinine 0.43. Glucose 82. Follow-up chest x-ray is unchanged with right thoracotomy tube in place in right apical lucency. She is being followed by CT services and she may require right middle lobectomy. The patient is seen today 10/09/2023 in follow-up on the regular medical floor. She is awake and alert in no acute distress. She is maintaining good O2 saturations in the 90s on 2 L/m per nasal cannula. Right-sided pigtail catheter remains in place to waterseal. She states she is feeling about the same. improvement but no worse. She is continued on DuoNeb inhalations. Remains on antibiotics in the form of vancomycin. Chest x-ray shows stable appearance post lobectomy. Right apical pneumothorax or cavitation is stable. Catheter in good position. Bronchial wash cultures positive for Brunilda. Pleural fluid cultures positive for brevibacterium species. Sputum culture revealed no growth. White count 7.0. Hemoglobin 7.3. Platelets 367. Sodium 144. Potassium 4.5. Bicarb 37. BUN 7. Creatinine 0.4. Glucose 88. The patient is seen today 10/10/2023 in follow-up on the regular medical floor. She is sitting up in bed. Awake and alert in no acute distress. Continues to maintain good O2 saturations in the 90s on 2 L/m per nasal cannula. Chest x-ray is essentially unchanged. Continues with a small right apical pneumothorax post right upper lobectomy. Right-sided pigtail catheter remains in place to waterseal. Minimal drainage. Denies to work well with the incentive spirometer, pulling nearly 1500 ML's. Pleural fluid cultures was positive for Leah bacterium species. Sputum culture revealed no growth. Bronchoalveolar lavage cultures revealed no growth. No new labs. She remains on vancomycin. Continued on bronchodilators, Mucinex. On today's evaluation of 10/11/2023, the patient's is resting comfortably in bed. Patient is currently on 2 L of oxygen by nasal cannula with a pulse ox of 98%. The most recent chest x-ray from today shows a small apical pneumothorax on the right. The left lung is clear. There is a stable hazy right lung capacity with a tube in place. The patient continues to drain purulent material from the right-sided chest tube with this in the order of 20 mL. Approximately 20-40 mL of purulent drainage has been obtained from the right lung and the culture was positive for Brevibacterium species. The antibiotic coverage is with vancomycin. Infectious diseases on the case. The labs were not done today. Most recent labs were reviewed. On today's evaluation of 10/12/2023, the patient is essentially stable and unchanged compared to yesterday. She remains on O2 at 2 L nasal cannula. Output from the right-sided pigtail catheter is minimal at this point in time in the order of 50 mL over the past 12 hours. The patient remains on vancomycin. Repeat CAT scan of the chest was done and there is no significant interval change in the collection involving the right middle lobe. The surgical pigtail catheter in place. The area is measured to be around 7.3 x 5.5 cm in size which is comparable to last measurements. Patchy infiltrate is also seen in the posterior segment of the right lower lobe and a small right-sided pleural effusion and a small left-sided pleural effusion is also present. The patient denies having any pain. The white cell cause of 4.8 with a hemoglobin of 9. BUN is at 8 with a creatinine of 0.46 and a sodium level is at 138. Vancomycin trough levels of 15.2. Surgeries on the case and catheterization for another surgical expiration of the right lung. On 10/13/2023, the patient is being seen in the intensive care unit she is currently postop. The patient was taken to the operating room today and the patient underwent a redo thoracotomy, extensive lysis of adhesions, right middle lobectomy. During the process, there was significant amount of blood loss a total of 6 units of packed RBC and treated for fresh frozen plasma and 1 unit of platelets. She was extubated off when she was transferred to the intensive care unit. Currently she is on a simple mask that will be weaned down to nasal cannula. Her blood pressure is soft around 91/57 and the patient is currently on Jesu-Synephrine at 0.5 mcg/kg/m. She is afebrile. She has 2 right-sided chest tubes in place. The chest x-ray showing probably a tiny right apical pneumothorax. There are postsurgical changes in the right lung. The right hemidiaphragm is slightly elevated and there may be some limited effusion. Chest tubes are all in good location. There is minimal amount of air leak and the apical chest tube. Output from the chest tube has been in the order of 300 mL in each chest tube since arrival from the operating room. I was able to insert a triple-lumen catheter in the right IJ. The patient has adequate pain control for the time being. She is on DuoNeb updrafts. She is on epidural fentanyl and bupivacaine for pain control. She is alert and awake and comm unicating at this point in time. She is slightly lethargic due to her postop state. She remains on vancomycin. Postop labs are pending for now. Of 10/14 2023, the patient is postop day #1 following thoracotomy, right middle lobe resection and extensive lysis of adhesions. The patient is awake and alert and since she is sitting up on a recliner. She is using the incentive spirometer. She is falling approximately 1000 on the incentive spirometer. She has a right anterior and posterior chest tube. Her chest tube is still showing air leak. Total amount of output from the anterior chest tube has been 550 mL to of the operating room. The posterior chest tube has drained approximately 100 mL since the operating room. The patient is still on Jesu- Synephrine which is running at 1.5 mcg/kg/m. She remains on vancomycin. She is on oxygen at 2 L nasal cannula. She is afebrile. She is hemodynamically stable. Cardiac rhythm is sinus. Pulse ox is 94%. She received a total of 7 units of packed RBC yesterday, she also received fresh frozen plasma and platelets. Blood work from today shows a WBC count of 18, hemoglobin of 10, platelet count of 246, sodium is at 134, BUN is at 13 with a creatinine of 0.4. On 10/15/2023, patient is awake and alert and sitting up on a chair. The patient is comfortable. She is complaining of pain along the right chest. Epidural fentanyl was discontinued. The patient is taken oxycodone 10 mg every 4 hours on a when necessary basis. She is also on Toradol. Antibiotic coverage is with meropenem and vancomycin. Meanwhile, she is on 2 L of oxygen by nasal cannula. She was having some issues with a low CVP and hypotension yesterday. Jesu-Synephrine was weaned off and discontinued. She was given IV fluids. Currently she is on a low-dose vasopressin at 0.02 units per minutes. The patient otherwise is producing adequate amount of urine output. She is awake and alert. The right-sided chest tubes are still in place. The patient has an apical chest tube is still leaking and the output from the chest tube is in order of 100 mL over the past 8 hours. No evidence of any air leak on the posterior chest tube which is running approximately 70 mL's over the past 8 hours. The patient had a follow-up chest x-ray today. No evidence of any pneumothorax. Chest tubes are in adequate location. Patient is set up postthoracotomy. The patient also developed a small right posterior atelectasis/pleural effusion. Left lung remains clear. On 10/16/2023, the patient is still having some soreness across her surgical one-sided. Otherwise, she is stable on 3 L of oxygen by nasal cannula. Chest x-ray shows no interval change. The patient has a apical and the posterior chest tube. No air leak and the posterior chest tube. Output is minimal at this point in time. The apical chest tube is showing intermittent air leak. She is currently on waterseal. She is using the senna spirometer. She is on no pressors. IV fluids are currently at KVO. Vasopressin has been discontinued since this morning at around 7:30 AM. Her white cell count is improved and currently is down to 5.1 with a hemoglobin of 7.8. Sodium is at 132, bicarb is at 28 with a BUN of 15 and a creatinine of 0.4. She remains on IV vancomycin. She is also on IV cefepime. Chest x-ray shows no evidence of any pneumothorax. She remains on bronchodilators. No other interval change as yesterday. She is going to ambulate. Objective - Vital Signs Vital signs: Vital Signs Temp 98.0 F 10/16/23 08:00 Pulse 101 H 10/16/23 09:30 Resp 21 10/16/23 09:30 BP 109/59 10/16/23 09:30 Pulse Ox 90 L 10/16/23 09:30 FiO2 Intake & Output 10/15/23 10/16/23 10/16/23 18:59 06:59 18:59 Intake Total 1434.019 792.861 364.913 Output Total 473 320 120 Balance 961.019 472.861 244.913 Weight 78.8 kg 80.7 kg Intake: IV 575 470 363 Meropenem 1 gm In Sodium 100 100 Chloride 0.9% 100 ml @ 33 .3 mls/hr IVPB Q8HR [facility] Rx#:[id number] Pressure bag 3 Sodium Chloride 0.9% 1, 575 120 10 000 ml @ 75 mls/hr IV . [id number] [facility] Rx#:[id number] Vancomycin 1,250 mg In 250 250 Sodium Chloride 0.9% 250 ml @ 125 mls/hr IVPB Q12H [facility] Rx#:[id number] Intake, IV Titration 29.019 22.861 1.913 Amount Vasopressin 20 unit In 29.019 22.861 1.913 Sodium Chloride 0.9% 50 ml @ 0.04 UNITS/MIN 6.12 mls/hr IV .[id number] [facility] Rx# :[id number] Oral 830 300 Output: Chest Tube Drainage 160 110 90 R. Chest Tube - A ( 80 50 60 Anterior) R. Chest Tube - B ( 80 60 30 Posterior) Urine 313 210 30 Other: Voiding Method Indwelling Catheter Indwelling Catheter Indwelling Catheter # Bowel Movements 2 ABP, PAP, CO, CI - Last Documented Arterial Blood Pressure 81/41 - Exam GENERAL EXAM: Alert, pleasant, fatigued, 57-year-old female, resting in bed, on 2 L nasal cannula, in no apparent distress. HEAD: Normocephalic. EYES: Normal reaction of pupils, equal size. NOSE: Clear with pink turbinates. THROAT: No erythema or exudates. NECK: No masses, no JVD. CHEST: No chest wall deformity. The patient has 2 right-sided chest tubes in place, intermittent air leak in the right apical chest tube, the surgical one- sided dry clean and intact LUNGS: Equal air entry with crackles in the right lung base. CVS: S1 and S2 normal with no audible murmur, regular rhythm. ABDOMEN: No hepatosplenomegaly, normal bowel sounds, no guarding or rigidity. SPINE: No scoliosis or deformity SKIN: No rashes CENTRAL NERVOUS SYSTEM: No focal deficits, tone is normal in all 4 extremities. EXTREMITIES: There is no peripheral edema. No clubbing, no cyanosis. Peripheral pulses are intact. - Labs CBC & Chem 7: 10/16/23 07:10 10/16/23 07:10 Labs: Abnormal Lab Results - Last 24 Hours (Table) 10/16/23 10/16/23 Range/Units 07:10 07:10 RBC 2.57 L (3.80-5.40) m/uL Hgb 7.8 L (11.4-16.0) gm/dL Hct 23.8 L (34.0-46.0) % RDW 16.7 H (11.5-15.5) % Lymphocytes # 0.7 L (1.0-4.8) k/uL Sodium 132 L (137-145) mmol/L Creatinine 0.48 L (0.52-1.04) mg/dL Calcium 7.5 L (8.4-10.2) mg/dL Microbiology - Last 24 Hours (Table) 10/14/23 16:56 Blood Culture - Preliminary Blood Assessment and Plan Plan: Thoracotomy with extensive lysis of adhesions and right middle lobectomy. The patient is postop day #3 . Surgery was done on 10/13/2023 and the patient is currently in the intensive care unit. Patient has 2 right-sided chest tubes in place. There was significant amount of blood loss and the patient's is a total of 7 units of packed RBC, 2 units of fresh frozen and 1 unit of platelets. The patient has an anterior chest tube with this is showing air leak, the posterior chest tube is not. Output from the chest tube is reasonable at this point in time. The chest x-ray was noted. There is development of a small right-sided pleural effusion. No evidence of any pneumothorax. Continues to have air leak through the anterior chest tube. Patient is currently off pressors. Oxygenation is stable at 2 L per minute nasal cannula. Chest x-ray findings are also stable Hypotension, Randall and the patient is currently off pressors Non-small cell lung cancer status post right upper lobectomy, done on 08/19/2023. Two regional hilar lymph nodes were positive for metastasis. No other lymph nodes involved. The patient had T2b N 1 M0 disease. Persistent postop right apical pneumothorax, improved Right lung abscess, A CT of the chest 09/28/2023 demonstrated focal severe consolidation of the right upper lobe measuring 7.7 cm with what appears to be a fluid density concerning for pulmonary abscess. Pleural fluid culture positive for gram positive bacilli/brevibacterium species. Remains on vancomycin. Follow-up computed tomography scan today 10/07/2023 continues to show a residual lung abscess measuring approximate 6.0 x 5.0 cm, previously 8.2 x 7.4 cm's. Leukocytosis, improved Normocytic normochromic anemia, without any obvious blood loss Chronic obstructive pulmonary disease, with a FEV1 53% of predicted, stable. Former tobacco dependence Plan: Aggressive pulmonary toileting Daily chest x-ray Monitor upper from the chest tubes The posterior chest tube can be removed. We'll keep the apical chest tube with the patient is having some intermittent air leak Pain control with oxycodone and Toradol. Increase IV fluids to 50 mL an hour Pain is under adequate control BP is improved Patient is off Jesu-Synephrine and vasopressin Continue Jimenez catheter Ablate the patient's Continue vancomycin and meropenem We'll keep the patient intensive care unit for now. Titrate oxygen flow to maintain a saturation above 90%, currently on 2 L of oxygen by nasal cannula We will continue to follow
--- NOTE | 2023-10-16 11:24 | P.PN ---
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 History of non-small cell carcinoma with neuroendocrine differentiation, consistent with large cell neuroendocrine carcinoma status post robotic-assisted right upper lobectomy on 08/19/2023 and subsequent bronchoscopy with placement of right thoracostomy tube, chronic tobacco dependence with recent cessation, COPD, asthma, hyperlipidemia, GERD, diverticulitis status post bowel resection, osteoarthritis POD #3 Redo Thoracotomy, Extensive lysis of adhesions, Right middle lobectomy, Cryo-ablation of intercostal nerves 3-7. The patient was seen and examined in follow-up today 10/16/2023 at her bedside in the intensive care unit. Currently she is sitting up to bedside chair, is awake, alert, oriented 3 as a no acute apparent distress. She denies any complaints of shortness of breath at this time, although states with activity she does get short winded, and is complaining of some surgical type pain to her right chest chest tube insertion sites. She remains hemodynamically stable and is currently on no inotropic or pressor support. Oxygen saturations are 98% on 2 L nasal cannula and she is achieving 500-750 mL on her incentive spirometry with encouragement. Bedside telemetry showing normal sinus rhythm heart rate 90 BPM. Right anterior and posterior pleural chest tubes remain in place to water seal, intermittent air leak present to her anterior chest tube only. Anterior chest tube is draining thin serosanguineous drainage with 40 mL output in the last 8 hours and 130 mL output in the last 24 hours. Posterior chest tube draining thin serosanguineous drainage with 50 mL output in the last 24 hours. Right IJ triple-lumen catheter remains in place with continuous CVP monitoring, current CVP pressure is 4 mmHg. Laboratory and chest x-ray results reviewed. Surgical pathology results remain pending. Objective - Vital Signs Vital signs: Vital Signs Temp 97.9 F 10/16/23 05:00 Pulse 84 10/16/23 07:00 Resp 18 10/16/23 07:00 BP 99/56 10/16/23 07:00 Pulse Ox 100 10/16/23 07:00 FiO2 Intake & Output 10/15/23 10/16/23 10/16/23 18:59 06:59 18:59 Intake Total 1434.019 792.861 11.913 Output Total 473 320 100 Balance 961.019 472.861 -88.087 Weight 78.8 kg 80.7 kg Intake: IV 575 470 10 Meropenem 1 gm In Sodium 100 Chloride 0.9% 100 ml @ 33 .3 mls/hr IVPB Q8HR [facility] Rx#:[id number] Sodium Chloride 0.9% 1, 575 120 10 000 ml @ 75 mls/hr IV . [id number] KARINA Rx#:[id number] Vancomycin 1,250 mg In 250 Sodium Chloride 0.9% 250 ml @ 125 mls/hr IVPB Q12H [facility] Rx#:[id number] Intake, IV Titration 29.019 22.861 1.913 Amount Vasopressin 20 unit In 29.019 22.861 1.913 Sodium Chloride 0.9% 50 ml @ 0.04 UNITS/MIN 6.12 mls/hr IV .Q8H20M KARINA Rx# :[id number] Oral 830 300 Output: Chest Tube Drainage 160 110 90 R. Chest Tube - A 80 50 60 R. Chest Tube - B 80 60 30 Urine 313 210 10 Other: Voiding Method Indwelling Catheter Indwelling Catheter # Bowel Movements 2 ABP, PAP, CO, CI - Last Documented Arterial Blood Pressure 81/41 - Exam CONSTITUTIONAL: Appears comfortable, cooperative, no acute distress. RESPIRATORY: Lungs sounds diminished bilaterally. Respirations are symmetrical, nonlabored. Currently on 2 L nasal cannula with oxygen saturation 98%. Able to achieve 500-750 mL on incentive spirometry. Strong cough. CARDIOVASCULAR: S1, S2 present. Regular rate and rhythm, sinus rhythm on telemetry. Palpable peripheral pulses bilaterally. No edema present. No calf pain or tenderness noted. SCDs present. GASTROINTESTINAL: Abdomen soft, nontender, nondistended. Active bowel sounds present 4 quadrants. Tolerating diet. Passing flatus. GENITOURINARY: Jimenez catheter in place for accurate I's and O's. Urine output 215 mL in the last 8 hours. INTEGUMENTARY: Skin is warm and dry with evidence of good perfusion. Right chest thoracotomy incision well approximated, isela in place and covered with dry intact dressing. NEUROLOGIC: Cranial nerves II through XII intact. No focal deficits. Epidural remains in place. MUSKULOSKELETAL: Able to move all extremities, strength equal bilaterally, gait normal. PSYCHIATRIC: Alert and oriented to person place and time, appropriate affect, intact judgment and insight. INVASIVE LINES AND TUBES: Right pleural anterior chest tube present and connected to wall suction, intermittent air leak is present. Right pleural chest tube with 40 mL serosanguineous drainage overnight, 130mL in the last 24 hours. Right pleural posterior chest tube connected to low continuous wall suction, no air leak is present. Draining thin serosanguineous drainage with 40 mL serosanguineous drainage overnight, 50 mL in the last 24 hours. - Allied health notes Allied health notes reviewed: nursing - Labs CBC & Chem 7: 10/16/23 07:10 10/16/23 07:10 Labs: Abnormal Lab Results - Last 24 Hours (Table) 10/16/23 10/16/23 Range/Units 07:10 07:10 RBC 2.57 L (3.80-5.40) m/uL Hgb 7.8 L (11.4-16.0) gm/dL Hct 23.8 L (34.0-46.0) % RDW 16.7 H (11.5-15.5) % Lymphocytes # 0.7 L (1.0-4.8) k/uL Sodium 132 L (137-145) mmol/L Creatinine 0.48 L (0.52-1.04) mg/dL Calcium 7.5 L (8.4-10.2) mg/dL Microbiology - Last 24 Hours (Table) 10/14/23 16:56 Blood Culture - Preliminary Blood - Imaging and Cardiology Chest x-ray: report reviewed, image reviewed Assessment and Plan Assessment: Necrosis and lung abscess of right middle lobe, computed tomography scan of the chest on 09/28/2023 showing a small right pleural effusion, a residual loculated small anterior upper lung pneumothorax measuring 4.5 cm, a focal severe consolidation of the adjacent right upper lung measuring 7.7 cm, a fluid density, possible severe pneumonia or pulmonary abscess, and possible second ovary abscess or cavity necrosis with air-fluid level anterior right mid lung measuring 9.2 x 8.2 x 7.4 cm, status post right middle lobectomy Leukocytosis, likely secondary to above Normocytic normochromic anemia, no obvious blood loss Non-small cell carcinoma with neuroendocrine differentiation, consistent with large cell neuroendocrine carcinoma, 2 of 4 hilar nodes positive on pathology, status post robotic-assisted right upper lobectomy on 08/19/2023 and subsequent bronchoscopy with placement of right thoracostomy tube COPD with a recent FEV1 showing a predicted value of 87% and a DLCO 55% of predicted value Asthma Hyperlipidemia GERD History of diverticulitis, status post bowel resection Chronic tobacco dependence with recent cessation Osteoarthritis Plan: We will remove her right pleural posterior chest tube. Keep her right anterior pleural chest tube in place to water seal. Continue to monitor for air leak resolution. Wean oxygen as tolerated. Encourage use of incentive spirometry 10 times every hour while awake. Continue aggressive pulmonary toileting. Monitor daily labs and chest x-rays. GI and DVT prophylaxis. Continue to follow pathology results, remains pending. Keep a right IJ triple-lumen catheter in place for another 24 hours and continue to monitor continuous CVP. Increase activity as tolerated. Out of bed for all meals. Antibiotic management per infectious disease recommendations. She is currently on Merrem 1 g IV piggyback every 8 hours and vancomycin 1250 mg IV piggyback every 12 hours. More recommendations to follow based on patient's clinical course. Time with Patient: Greater than 30
[2023-10-16] MEDS: LIDOCAINE 4% PATCH TOPICAL SCH (14:04)
[2023-10-16] MEDS: ACETAMINOPHEN TAB 500 MG TAB PO PRN (16:53)
--- NOTE | 2023-10-16 22:03 | P.PN ---
Subjective Progress Note Date: 10/16/23 patient is a 57-year-old lady with past medical history significant for right upper lobe non-small cell lung carcinoma status post robotic-assisted VATS involving a right upper lobectomy on 08/19/23 who presented to the ER because of abnormal computed tomography scan findings and persistent shortness of breath. Patient had recent VATS of right upper lobe surgery done in August, post operative course was complicated by persistent right-sided pneumothorax and opacification of the right mid lung area. After the surgery patient stated that she was not feeling well. Patient has been having worsening shortness of breath on exertion. Patient was also having productive cough which with green colored phlegm. Patient was also having fevers at home. Patient was being followed up closely by pulmonology as listed per CT surgery in outpatient settings. Because of these symptoms, patient had outpatient computed tomography scan done which showed ocal severe consolidation of the right upper lobe measuring 7.7 cm with what appears to be a fluid density concerning for pulmonary abscess. There is an adjacent residual loculated small anterior upper lung pneumothorax measuring 4.5 cm. There is a possible secondary pulmonary abscess or cavitary necrosis with air-fluid level anterior right mid lung measuring 9.2 x 8.2 x 7.4 cm. because of these findings, patient was referred to the ER 10/06/2023 Patient evaluated sitting up in bed. No drainage noted from [facility] overnight. Pigtail catheter remains n place. Chest xray today reveals stable appearance right lung with pneumothorax vs. cavitation apex. Small effusion may be present. Repeat sputum culture final showing normal hubert. The pleural fluid is finalized showing brevibacterium species. 10/07/2023 Patient is evaluated today sitting up in bed. Legs are swollen, patient has been receiving IV fluids which will be stopped. IV lasix x 1 will be given and recommending SCDs for this. Edema is non pitting. Patient had chest xray this AM showing possible loculated pneumothorax vs. cavitary process. Subpulmonic right basilar effusion. The left lung is clear. Pigtail catheter remains in place again minimal to no drainage overnight. CT following closely. Repeat sputum showing normal hubert. Remains on IV antibiotics. Patient remains on room air. 10/08/[address] yesterday showing residual lung abscess with significant fluid content remaining. Thickening of the right pectoralis major muscle with some air and possibly fluid within and may relate to developing infection in this location. Pigtail catheter remains in place. Bilateral pleural effusions. Small left and moderate right pleural effusion. Sodium 139, renal function stable. 10/09/2023 Patient evaluated today sitting up in bed. Lower extremity edema is improved after a second dose of IV lasix, remains off fluids she is eating and drinking well. BENJAMÍN hose to be applied today should help with the swelling as well. Patient continues with the pigtail catheter which has had minimal drainage over the last 2 days. Patient will be going for thoracotomy and right middle lobectomy on Wednesday. Patient remains on IV vancomycin per ID and PICC line is in place. 10/10/2023 Patient evaluated today sitting up in bed. Remains on 2L of oxygen. Lower extremity edema improved. Continues on IV vancomycin. Pending repeat chest xray reports. Cardiothoracic following closely patient will go for right middle lobectomy and thoracotomy on Wednesday. 10/13/2023 Patient is seen in follow-up this morning currently nothing by mouth as she is scheduled to undergo thoracotomy with right middle lobectomy with CT surgery. Pulmonary following closely patient continues on 2 L of oxygen along with antibiotics. Plan is for going to ICU postop and will await surgical report. Patient is sitting up with multiple family members at bedside with questions and concerns were answered to the best of our ability. Patient is currently afeb rile with no reports of worsening shortness of breath. Patient denies any nausea or vomiting and currently nothing by mouth for the procedure. 10/14/2023 Patient is seen in follow-up in the ICU status post right middle lobectomy with CT surgery yesterday. Patient with multiple medical consultations following continues on low-dose pressor support for hypotension. Patient also on epidural pain pump with anesthesia following has been titrating meds accordingly due to continued low blood pressure patient has been receiving large amounts of fluid showing some minimal improvement in blood pressures. Patient is alert and oriented sitting up in the chair and continued on 2 L via nasal cannula. Patient is afebrile and maintained on meropenem along with vancomycin with infectious disease following. Encouraged incentive spirometer use and awaiting follow-up labs. Patient continues with indwelling Jimenez catheter for continued strict intake and output monitoring. PT/OT therapy for evaluation. 10/15/2023 Patient is seen in follow-up today currently sitting up in the chair remains in the ICU with multiple medical consultations following. Patient continues on meropenem along with vancomycin and awaiting cultures. Patient continues with right-sided chest tubes being placed to waterseal. Patient continues on low- dose vasopressin his blood pressures are low. IV fluids being discontinued as chest x-ray shows some pleural effusions. Blood pressures are marginal and will be monitored closely in the ICU. Patient continues on 2-3 L via nasal cannula continues to report shortness of breath although no worse. Patient is having chest wall pain at the chest tube sites and pain medications being adjusted including any oral medications. Patient is afebrile and hemoglobin is stable although trending down but above 7 today. Recommend to monitor closely and transfuse of 7 or less. No reported nausea or vomiting patient tolerating diet needs encouragement with meals. 10/16/2023 Patient is in the MICU. Awake alert and oriented x 3. On 2 L oxygen via nasal cannula. Was able to ambulate in the floyd but still having exertional dyspnea. Also complains of soreness at the chest tube site. Right posterior pleural chest tube was removed today. Still having anterior chest tube draining serosanguineous fluid.. Patient has been afebrile. Remains on antibiotics in the form of vancomycin and meropenem. No complaints of nausea or vomiting. No cough or sputum production. Pleural fluid culture showed Brevibacterium species on 10/01/2023.. Laboratory test showed WBC 5.1 hemoglobin 7.8 and platelets 185, sodium 132 potassium 3.8 chloride 99 bicarb is 28 BUN 15 and creatinine 0.48 Chest x-ray this morning showed postsurgical changes right hemithorax with [address]. No appreciable pneumothorax. Pleural parenchymal opacities throughout the right side of the chest are fairly similar. Slightly increasing patchy atelectasis or infiltrate at the left base. Current medications reviewed. Review of Systems Constitutional: Denied any fatigue denied any fever. Cardio vascular: denied any chest pain, palpitations, reports chest wall pain with chest tubes Gastrointestinal: denied any nausea, vomiting, diarrhea Pulmonary: Reports shortness of breath that Worsens with exertion Neurologic denied any new focal deficits All medications were reviewed PHYSICAL EXAMINATION: GENERAL: The patient is alert and oriented x3, . Well developed, well nourished. Obese HEENT: Pupils are round and equally reacting to light. EOMI. No scleral icterus. No conjunctival pallor. Normocephalic, atraumatic. No pharyngeal erythema. No thyromegaly. CARDIOVASCULAR: S1 and S2 muffled PULMONARY: Diminished breath sounds bilaterally and more so on the right with Crackles in the right lung base. Right thoracotomy tube in place. With serosanguineous output noted ABDOMEN: Soft, nontender, nondistended, normoactive bowel sounds. No palpable organomegaly. MUSCULOSKELETAL: No joint swelling or deformity. EXTREMITIES: No cyanosis, clubbing +1 peripheral edema/ankle edema non pitting. NEUROLOGICAL: Gross neurological examination did not reveal any focal deficits. Diffusely weak SKIN: No rashes. Assessment: Pneumonia with possible lung abscess, status post bronchoscopy, status post right middle lobe lobectomy on 10/13/2023 Rule out Cavitary lung lesion/pulmonary abscess as well as possible second ovary abscess or cavity necrosis Non-small cell lung cancer status post right upper lobectomy, done on 08/19/2023. Neuroendocrine differentiation consistent with large cell neuroendocrine carcinoma Residual right apical loculated pneumothorax s/p lobectomy Relative hypotension, currently maintained on vasopressin Normocytic anemia Chronic obstructive pulmonary disease History of asthma GERD history of diverticulitis, status post bowel resection Hyperlipidemia history Former smoker with recent cessation Obesity with BMI 32.7 GI prophylaxiss Full Code Plan: Continue antibiotics in the form of IV vancomycin and meropenam. The bronchial washings are negative for malignancy and sputum showing gram positive. Repeat sputum culture showing normal hubert. Infectious disease is following Patient is status post right middle lobe ectomy and anterior right-sided chest tubes showing serosanguineous fluid. Patient continues on low-dose vasopressin for hypotension. Patient also continues on epidural pain pump and is being discontinued today per anesthesia. Oral medications being added to the pain regimen Continue BENJAMÍN hose and to elevate lower extremities while sitting. Continue to encourage incentive spirometer 10 x an hour while awake. Patient is currently maintained on 2 L via nasal cannula recommend wean FiO2 as tolerated Increase activity level. Will need extensive PT/OT therapy postoperatively once cleared by CT surgery Repeat labs along with chest x-ray in the a.m. Due to multiple complex medical issues, prognosis is guarded Objective - Vital Signs Vital signs: Vital Signs Temp 98.0 F 10/16/23 16:00 Pulse 120 H 10/16/23 21:01 Resp 25 H 10/16/23 21:01 BP 96/54 10/16/23 21:01 Pulse Ox 91 L 10/16/23 20:00 FiO2 35 10/16/23 19:00 Intake & Output 10/16/23 10/16/23 10/17/23 06:59 18:59 06:59 Intake Total 920.772 8319.913 200 Output Total 320 1990 Balance 472.861 -449.087 200 Weight 80.7 kg Intake: IV 470 889 50 Invasive Line 9 20 Meropenem 1 gm In Sodium 100 200 Chloride 0.9% 100 ml @ 33 .3 mls/hr IVPB Q8HR [facility] Rx#:[id number] Pressure bag 9 Sodium Chloride 0.9% 1, 400 50 000 ml @ 50 mls/hr IV . Q20H [facility] Rx#:[id number] Sodium Chloride 0.9% 1, 120 10 000 ml @ 75 mls/hr IV . [id number] [facility] Rx#:[id number] Vancomycin 1,250 mg In 250 250 Sodium Chloride 0.9% 250 ml @ 125 mls/hr IVPB Q12H [facility] Rx#:[id number] Intake, IV Titration 22.861 1.913 Amount Vasopressin 20 unit In 22.861 1.913 Sodium Chloride 0.9% 50 ml @ 0.04 UNITS/MIN 6.12 mls/hr IV .Q8H20M [facility] Rx# :[id number] Oral 300 650 150 Output: Chest Tube Drainage 110 150 R. Chest Tube - A ( 50 120 Anterior) R. Chest Tube - B ( 60 30 Posterior) Urine 210 1840 Other: Voiding Method Indwelling Catheter Bedside Commode # Voids 2 1 # Bowel Movements 2 ABP, PAP, CO, CI - Last Documented Arterial Blood Pressure 81/41 - Labs CBC & Chem 7: 10/16/23 07:10 10/16/23 07:10 Labs: Abnormal Lab Results - Last 24 Hours (Table) 10/16/23 10/16/23 Range/Units 07:10 07:10 RBC 2.57 L (3.80-5.40) m/uL Hgb 7.8 L (11.4-16.0) gm/dL Hct 23.8 L (34.0-46.0) % RDW 16.7 H (11.5-15.5) % Lymphocytes # 0.7 L (1.0-4.8) k/uL Sodium 132 L (137-145) mmol/L Creatinine 0.48 L (0.52-1.04) mg/dL Calcium 7.5 L (8.4-10.2) mg/dL Microbiology - Last 24 Hours (Table) 10/14/23 16:56 Blood Culture - Preliminary Blood
[2023-10-17] MEDS: KETOROLAC 15 MG/ML 1 ML VIAL IVP SCH ×4 (00:04→17:08)
[2023-10-17] MEDS: MEROPENEM 1 GM in SODIUM CHLORIDE 0.9% 100 ML IVPB SCH ×3 (00:04→17:22)
[2023-10-17] MEDS: HEPARIN SODIUM,PORCINE 5,000 UNIT/ML 1 ML VIAL SQ SCH ×3 (00:05→17:09)
[2023-10-17 05:49] LABS: Anisocytosis Slight; HCT 23.5 % (34.0-46.0); HGB 7.5 gm/dL (11.4-16.0); Hypochromasia Moderate; MCH 29.5 pg (25.0-35.0); MCHC 31.7 g/dL (31.0-37.0); MCV 93.1 fL (80.0-100.0); Mean Platelet Volume 7.9; Platelet Count 217 k/uL (150-450); RBC 2.53 m/uL (3.80-5.40); RDW 16.5 % (11.5-15.5); WBC 3.6 k/uL (3.8-10.6)
[2023-10-17 05:58] LABS: African American GFR (CKD) >90 (>60 ml/min/1.73 sqM); Anion Gap 7 mmol/L; Blood Urea Nitrogen 10 mg/dL (7-17); Calcium 7.6 mg/dL (8.4-10.2); Carbon Dioxide 27 mmol/L (22-30); Chloride 103 mmol/L (98-107); Glucose 82 mg/dL (74-99); Non-African American GFR(CKD) >90 (>60 ml/min/1.73 sqM); Potassium 3.3 mmol/L (3.5-5.1); Sodium 137 mmol/L (137-145)
[2023-10-17] MEDS: CYCLOBENZAPRINE 10 MG TAB PO SCH ×3 (06:20→20:26)
[2023-10-17] MEDS: POTASSIUM CHLORIDE ER 20 MEQ TAB.ER PO SCH ×2 (06:52→09:39)
[2023-10-17] MEDS: PANTOPRAZOLE 40 MG TABLET PO SCH (06:52)
[2023-10-17] MEDS: VASOPRESSIN 20 UNIT in SODIUM CHLORIDE 0.9% 50 ML IV SCH (08:09)
[2023-10-17] MEDS: IPRATROPIUM-ALBUTEROL 3 ML NEB INHALATION SCH ×4 (08:49→20:29)
[2023-10-17] MEDS: FORMOTEROL FUMARATE 20 MCG/2 ML NEBU INHALATION SCH ×2 (08:49→20:29)
[2023-10-17] MEDS: VANCOMYCIN 1,250 MG in SODIUM CHLORIDE 0.9% 250 ML IVPB SCH ×2 (08:57→20:26)
--- NOTE | 2023-10-17 08:58 | P.PN ---
Subjective Progress Note Date: 10/17/23 I am seeing this patient in consultation today 09/30/2023 for suspected pulmonary abscess. Patient is a 57-year-old white female with past medical history significant for right upper lobe non-small cell lung carcinoma status post robotic-assisted VATS involving a right upper lobectomy on August 19, . She did have a complicated postoperative hospital stay with a persistent right sided pneumothorax and opacification of the right midlung area. She has been closely followed up on an outpatient basis. She does follow Dr. Davey in the pulmonary office, and also had a office visit with Dr. Espino from cardiothoracic surgery on 09/17. She states that she has "not really been 100%" since surgery. More recently she has had symptoms of exertional shortness of breath, right-sided back pain, productive cough with yellow/green sputum sometimes pink tinged, and subjective fevers. She has received courses of Levaquin and doxycycline outpatient. A CT of the chest done 2 days ago demonstrated focal severe consolidation of the right upper lobe measuring 7.7 cm with what appears to be a fluid density concerning for pulmonary abscess. There is an adjacent residual loculated small anterior upper lung pneumothorax measuring 4.5 cm. There is a possible secondary pulmonary abscess or cavitary necrosis with air-fluid level anterior right mid lung measuring 9.2 x 8.2 x 7.4 cm. For this reason, she was directed to the emergency room yesterday. Patient was given doses of Levaquin and vancomycin in the emergency room. She does have a penicillin ALLERGY. Bronchoscopy with BAL done on 08/23/2023 did not identify significant bacterial growth. CBC shows a WBC count of 16, hemoglobin 9.6, hematocrit 30.4, platelets 694. BMP on arrival shows sodium 133, potassium 3.2, chloride 83, serum bicarbonate 34, BUN 12, creatinine 0.5, glucose 112. Normal saline infusing at 130 ML's per hour. Lactic acid level I.9. Patient is currently lying in bed, on 2 L/m nasal cannula, in no acute distress. SPO2 97%. She is slightly tachycardic with a heart rate of 116 bpm. She was febrile with a T-max of 100F. Blood cultures pending. Hemodynamically stable. Patient was seen and examined today on 10/01/23, seems to be doing about the same, continues to have cough and shortness of breath. Cough is productive with thick yellow phlegm. Underwent a bronchoscopy today , please refer to the full operative report. Patient was found to have significant area and secretions coming out of the right middle lobe, mucosa in the right middle lobe was noted to be thick ND edematous, and has quite a bit of abnormal appearance, multiple biopsies from the right lobe bronchus were done, and lavage of the right middle lobe/medial segment was also performed. In the meantime the patient remains on antibiotics, and these will likely be adjusted based on the final culture from the BAL. Patient continues to have leukocytosis with WBC count of 17.9 hemoglobin 8.9, basic metabolic profile is normal Reevaluated today on 10/02/23, patient was seen by interventional radiology yesterday, and she underwent placement of a pigtail catheter into her right lung. Significant purulent drainage is noted into the pleural VAC, chest x-ray is showing improvement, clinically the patient is feeling better, remains on antibiotics, cultures are pending however the Gram stain is showing gram- positive cocci and that is from the pleural effusion fluid. BAL Gram stain is showing moderate PMNs and mixed organisms including gram-negative bacilli and gram-positive cocci. Patient is tolerating antibiotics well, and apparently she had one of placed treatment into the lung. Abscess. Patient refusing to have any more. WBC count is down today to 6.2 from 17.9 hemoglobin is 7.9, basic metabolic profile is normal. Renal profile is normal patient remains in the meantime on vancomycin and on aztreonam. The patient is seen today 10/03/2023 in follow-up on the regular medical floor. She is currently sitting up in a chair at the bedside. Awake and alert in no acute distress. Breathing quite a bit better. Maintaining good O2 saturations in the 90s on room air. She's been afebrile. Hemodynamically stable. Chest x- ray shows improvement in the right-sided empyema. Chest tube remains in place to wall suction. There was another 300 ML's of purulent drainage in the past 24 hours. She did receive alteplase/dornase earlier this morning per CT services. Pleural fluid cultures revealing no growth thus far. Bronchial wash cultures revealing no growth thus far. Sputum culture revealed no growth. White count 5.5. Hemoglobin 7.4. Sodium 136. Potassium 3.4. Bicarb 33. BUN 5. Creatinine 0.52. Glucose 91. She remains on aztreonam and vancomycin. The patient is seen today 10/04/2023 in follow-up on the regular medical floor. She is awake and alert in no acute distress. Sitting up in bed. Maintaining good O2 saturations in the 90s on 4 L/m per nasal cannula. She did undergo bronchoscopy with BAL and biopsies on 10/01/2023. Cytology pending. Pleural fluid cultures are showing gram-positive bacilli. White count 9.2. Hemoglobin 8.1. Platelets 536. Sodium 137. Potassium 3.1. Bicarb 35. BUN 4. Creatinine 0.43. She is continued on aztreonam and vancomycin. Remains on bronchodilators. She does have a productive cough of dark brown colored sputum. Another sputum culture will be sent. Chest x-ray continues to show a small right apical pneumothorax which is increased from prior. There is haziness to the right lung which is unchanged. Pulling about 750 MLS on her incentive spirometer. Right-sided pigtail catheter remains in place to continuous wall suction with approximately 170 ML's of purulent drainage in the past 24 hours. The patient is seen today 10/05/2023 in follow-up on the regular medical floor. She is currently resting in bed. Awake and alert in no acute distress. Feeling a bit better today compared to yesterday. Less cough and congestion. Chest x- ray continues to show a small right apical pneumothorax. Continued haziness to the right lung, pigtail catheter remains in place. Remains to suction. No leak noted. Continued on aztreonam and vancomycin. Pleural fluid culture was positive for gram positive bacilli. Sputum culture pending. Bronchial wash cultures revealed no growth. White count 6.6. Hemoglobin 7.8. Platelets 531. Sodium 138. Potassium 2.4. Bicarb 36. BUN 6. Creatinine 0.39. AST 18. ALT 16. Alk phos 117. Pro-calcitonin 0.15. She continues working well with the incentive spirometer. Continued on bronchodilators. The patient is seen today 10/06/2023 in follow-up on the regular medical floor. She is currently sitting up at the bedside. Maintaining good O2 saturations in the upper 90s on 2 L/m per nasal cannula. Awake and alert in no acute distress. Continues to feel a bit better each day. Still not quite back to her baseline. Chest x-ray reveals stable appearance of the right lung with pneumothorax versus cavitation apex. Small effusion. Pigtail catheter remains in place. Continues to suction. No leak noted. Pleural fluid cultures revealing brevibacterium species. Sodium 144. Potassium 3.3. Bicarb 35. BUN 6. Creatinine 0.4. Glucose 92. She is continued on vancomycin and aztreonam. Continued on bronchodilators. Continued on Mucinex. The patient is seen today 10/07/2023 in follow-up on the regular medical floor. She is awake and alert in no acute distress. Feeling a bit better today compared to yesterday. Maintaining good O2 saturations in the 90s on 2 L per nasal cannula. Normal saline at 20 ML's per hour. Chest x-ray reveals right apical lucency persists which may reflect loculated pneumothorax versus cavitary process. Right midlung field pigtail catheter remains in place overlying the stable opacity. Subpulmonic right basilar effusion. Left lung is clear. Computed tomography scan of the chest revealed residual lung abscess with significant fluid content remaining. There is thickening of the right pectoralis major musculature with some air and possibly fluid within and may relate to developing infection. Pigtail catheter appears to traverse through the chest wall along the inferior margin of this potential collection. Bilateral pleural effusions as mentioned. Hemoglobin 39. Potassium 3.5. Bicarb 30. BUN 9. Creatinine 0.40. She is continued on vancomycin. Completed aztreonam. The patient is seen today 10/08/2023 in follow-up on the regular medical floor. She is sitting up at the bedside. Awake and alert in no acute distress. Denies any worsening shortness of breath, cough or congestion. He is maintaining good O2 saturations in the 90s on 2 L/m per nasal cannula. She is being treated per Brevibacterium found in her pleural fluid. A PICC line was placed yesterday. She is continued on vancomycin. Completed Azactam. Awaiting interventional radiology to discontinue her pigtail catheter. Sodium 138. Potassium 4.0. Bicarb 39. BUN 10. Creatinine 0.43. Glucose 82. Follow-up chest x-ray is unchanged with right thoracotomy tube in place in right apical lucency. She is being followed by CT services and she may require right middle lobectomy. The patient is seen today 10/09/2023 in follow-up on the regular medical floor. She is awake and alert in no acute distress. She is maintaining good O2 saturations in the 90s on 2 L/m per nasal cannula. Right-sided pigtail catheter remains in place to waterseal. She states she is feeling about the same. improvement but no worse. She is continued on DuoNeb inhalations. Remains on antibiotics in the form of vancomycin. Chest x-ray shows stable appearance post lobectomy. Right apical pneumothorax or cavitation is stable. Catheter in good position. Bronchial wash cultures positive for Brunilda. Pleural fluid cultures positive for brevibacterium species. Sputum culture revealed no growth. White count 7.0. Hemoglobin 7.3. Platelets 367. Sodium 144. Potassium 4.5. Bicarb 37. BUN 7. Creatinine 0.4. Glucose 88. The patient is seen today 10/10/2023 in follow-up on the regular medical floor. She is sitting up in bed. Awake and alert in no acute distress. Continues to maintain good O2 saturations in the 90s on 2 L/m per nasal cannula. Chest x-ray is essentially unchanged. Continues with a small right apical pneumothorax post right upper lobectomy. Right-sided pigtail catheter remains in place to waterseal. Minimal drainage. Denies to work well with the incentive spirometer, pulling nearly 1500 ML's. Pleural fluid cultures was positive for Leah bacterium species. Sputum culture revealed no growth. Bronchoalveolar lavage cultures revealed no growth. No new labs. She remains on vancomycin. Continued on bronchodilators, Mucinex. On today's evaluation of 10/11/2023, the patient's is resting comfortably in bed. Patient is currently on 2 L of oxygen by nasal cannula with a pulse ox of 98%. The most recent chest x-ray from today shows a small apical pneumothorax on the right. The left lung is clear. There is a stable hazy right lung capacity with a tube in place. The patient continues to drain purulent material from the right-sided chest tube with this in the order of 20 mL. Approximately 20-40 mL of purulent drainage has been obtained from the right lung and the culture was positive for Brevibacterium species. The antibiotic coverage is with vancomycin. Infectious diseases on the case. The labs were not done today. Most recent labs were reviewed. On today's evaluation of 10/12/2023, the patient is essentially stable and unchanged compared to yesterday. She remains on O2 at 2 L nasal cannula. Output from the right-sided pigtail catheter is minimal at this point in time in the order of 50 mL over the past 12 hours. The patient remains on vancomycin. Repeat CAT scan of the chest was done and there is no significant interval change in the collection involving the right middle lobe. The surgical pigtail catheter in place. The area is measured to be around 7.3 x 5.5 cm in size which is comparable to last measurements. Patchy infiltrate is also seen in the posterior segment of the right lower lobe and a small right-sided pleural effusion and a small left-sided pleural effusion is also present. The patient denies having any pain. The white cell cause of 4.8 with a hemoglobin of 9. BUN is at 8 with a creatinine of 0.46 and a sodium level is at 138. Vancomycin trough levels of 15.2. Surgeries on the case and catheterization for another surgical expiration of the right lung. On 10/13/2023, the patient is being seen in the intensive care unit she is currently postop. The patient was taken to the operating room today and the patient underwent a redo thoracotomy, extensive lysis of adhesions, right middle lobectomy. During the process, there was significant amount of blood loss a total of 6 units of packed RBC and treated for fresh frozen plasma and 1 unit of platelets. She was extubated off when she was transferred to the intensive care unit. Currently she is on a simple mask that will be weaned down to nasal cannula. Her blood pressure is soft around 91/57 and the patient is currently on Jesu-Synephrine at 0.5 mcg/kg/m. She is afebrile. She has 2 right-sided chest tubes in place. The chest x-ray showing probably a tiny right apical pneumothorax. There are postsurgical changes in the right lung. The right hemidiaphragm is slightly elevated and there may be some limited effusion. Chest tubes are all in good location. There is minimal amount of air leak and the apical chest tube. Output from the chest tube has been in the order of 300 mL in each chest tube since arrival from the operating room. I was able to insert a triple-lumen catheter in the right IJ. The patient has adequate pain control for the time being. She is on DuoNeb updrafts. She is on epidural fentanyl and bupivacaine for pain control. She is alert and awake and comm unicating at this point in time. She is slightly lethargic due to her postop state. She remains on vancomycin. Postop labs are pending for now. Of 10/14 2023, the patient is postop day #1 following thoracotomy, right middle lobe resection and extensive lysis of adhesions. The patient is awake and alert and since she is sitting up on a recliner. She is using the incentive spirometer. She is falling approximately 1000 on the incentive spirometer. She has a right anterior and posterior chest tube. Her chest tube is still showing air leak. Total amount of output from the anterior chest tube has been 550 mL to of the operating room. The posterior chest tube has drained approximately 100 mL since the operating room. The patient is still on Jesu- Synephrine which is running at 1.5 mcg/kg/m. She remains on vancomycin. She is on oxygen at 2 L nasal cannula. She is afebrile. She is hemodynamically stable. Cardiac rhythm is sinus. Pulse ox is 94%. She received a total of 7 units of packed RBC yesterday, she also received fresh frozen plasma and platelets. Blood work from today shows a WBC count of 18, hemoglobin of 10, platelet count of 246, sodium is at 134, BUN is at 13 with a creatinine of 0.4. On 10/15/2023, patient is awake and alert and sitting up on a chair. The patient is comfortable. She is complaining of pain along the right chest. Epidural fentanyl was discontinued. The patient is taken oxycodone 10 mg every 4 hours on a when necessary basis. She is also on Toradol. Antibiotic coverage is with meropenem and vancomycin. Meanwhile, she is on 2 L of oxygen by nasal cannula. She was having some issues with a low CVP and hypotension yesterday. Jesu-Synephrine was weaned off and discontinued. She was given IV fluids. Currently she is on a low-dose vasopressin at 0.02 units per minutes. The patient otherwise is producing adequate amount of urine output. She is awake and alert. The right-sided chest tubes are still in place. The patient has an apical chest tube is still leaking and the output from the chest tube is in order of 100 mL over the past 8 hours. No evidence of any air leak on the posterior chest tube which is running approximately 70 mL's over the past 8 hours. The patient had a follow-up chest x-ray today. No evidence of any pneumothorax. Chest tubes are in adequate location. Patient is set up postthoracotomy. The patient also developed a small right posterior atelectasis/pleural effusion. Left lung remains clear. On 10/16/2023, the patient is still having some soreness across her surgical one-sided. Otherwise, she is stable on 3 L of oxygen by nasal cannula. Chest x-ray shows no interval change. The patient has a apical and the posterior chest tube. No air leak and the posterior chest tube. Output is minimal at this point in time. The apical chest tube is showing intermittent air leak. She is currently on waterseal. She is using the senna spirometer. She is on no pressors. IV fluids are currently at KVO. Vasopressin has been discontinued since this morning at around 7:30 AM. Her white cell count is improved and currently is down to 5.1 with a hemoglobin of 7.8. Sodium is at 132, bicarb is at 28 with a BUN of 15 and a creatinine of 0.4. She remains on IV vancomycin. She is also on IV cefepime. Chest x-ray shows no evidence of any pneumothorax. She remains on bronchodilators. No other interval change as yesterday. She is going to ambulate. 10/17/2023, the patient is on oxygen at 2 L. The posterior chest tube was removed yesterday. The patient has right anterior apical chest tube in place. There is persistent air leak still. The patient is on waterseal. The chest x- ray shows adequate expansion of the right lung. No evidence of any pneumothorax. A small amount of pleural effusion is present on the left. She is calm and comfortable and she is also ambulating with help of the nursing staff. Electrodes are all stable, BUN is at 10 with a creatinine of 0.5. The white cell cause of 3.6 with a hemoglobin of 7.5. Remains on the same antibiotic coverage. Remains on bronchodilators. She is currently on Merrem and vancomycin. Objective - Vital Signs Vital signs: Vital Signs Temp 97.9 F 10/17/23 02:00 Pulse 98 10/17/23 07:00 Resp 22 10/17/23 07:00 BP 97/56 10/17/23 07:00 Pulse Ox 97 10/17/23 07:00 FiO2 35 10/16/23 19:00 Intake & Output 10/16/23 10/17/23 10/17/23 18:59 06:59 18:59 Intake Total 6664.514 2216 50 Output Total 1990 835 Balance -449.087 325 50 Weight 80.7 kg Intake: IV 889 1010 50 Invasive Line 9 20 60 Meropenem 1 gm In Sodium 200 100 Chloride 0.9% 100 ml @ 33 .3 mls/hr IVPB Q8HR [facility] Rx#:[id number] Pressure bag 9 Sodium Chloride 0.9% 1, 400 600 50 000 ml @ 50 mls/hr IV . Q20H [facility] Rx#:[id number] Sodium Chloride 0.9% 1, 10 000 ml @ 75 mls/hr IV . [id number] [facility] Rx#:[id number] Vancomycin 1,250 mg In 250 250 Sodium Chloride 0.9% 250 ml @ 125 mls/hr IVPB Q12H [facility] Rx#:[id number] Intake, IV Titration 1.913 Amount Vasopressin 20 unit In 1.913 Sodium Chloride 0.9% 50 ml @ 0.04 UNITS/MIN 6.12 mls/hr IV .[id number] [facility] Rx# :[id number] Oral 650 150 Output: Chest Tube Drainage 150 35 R. Chest Tube - A ( 120 35 Anterior) R. Chest Tube - B ( 30 Posterior) Urine 1840 800 Other: Voiding Method Bedside Commode Bedside Commode # Voids 2 1 # Bowel Movements 2 ABP, PAP, CO, CI - Last Documented Arterial Blood Pressure 81/41 - Exam GENERAL EXAM: Alert, pleasant, fatigued, 57-year-old female, resting in bed, on 2 L nasal cannula, in no apparent distress. HEAD: Normocephalic. EYES: Normal reaction of pupils, equal size. NOSE: Clear with pink turbinates. THROAT: No erythema or exudates. NECK: No masses, no JVD. CHEST: No chest wall deformity. The patient has a single right apical chest tube. Right posterior chest tube was removed. There is persistent air leak while being on waterseal. LUNGS: Equal air entry with crackles in the right lung base. CVS: S1 and S2 normal with no audible murmur, regular rhythm. ABDOMEN: No hepatosplenomegaly, normal bowel sounds, no guarding or rigidity. SPINE: No scoliosis or deformity SKIN: No rashes CENTRAL NERVOUS SYSTEM: No focal deficits, tone is normal in all 4 extremities. EXTREMITIES: There is no peripheral edema. No clubbing, no cyanosis. Peripheral pulses are intact. - Labs CBC & Chem 7: 10/17/23 05:33 10/17/23 05:33 Labs: Abnormal Lab Results - Last 24 Hours (Table) 10/17/23 10/17/23 Range/Units 05:33 05:33 WBC 3.6 L (3.8-10.6) k/uL RBC 2.53 L (3.80-5.40) m/uL Hgb 7.5 L (11.4-16.0) gm/dL Hct 23.5 L (34.0-46.0) % RDW 16.5 H (11.5-15.5) % Potassium 3.3 L (3.5-5.1) mmol/L Creatinine 0.51 L (0.52-1.04) mg/dL Calcium 7.6 L (8.4-10.2) mg/dL Microbiology - Last 24 Hours (Table) 10/14/23 16:56 Blood Culture - Preliminary Blood Assessment and Plan Plan: Thoracotomy with extensive lysis of adhesions and right middle lobectomy. The patient is postop day #4 . Surgery was done on 10/13/2023 and the patient is currently in the intensive care unit. Patient has 1 right-sided chest tubes in place. There was significant amount of blood loss and the patient's is a total of 7 units of packed RBC, 2 units of fresh frozen and 1 unit of platelets. The patient has an anterior chest tube with this is showing air leak, the posterior chest tube is not. Output from the chest tube is reasonable at this point in time. The chest x-ray was noted. There is development of a small right-sided pleural effusion. No evidence of any pneumothorax. Continues to have air leak through the anterior chest tube. Patient is currently off pressors. Oxygenation is stable at 2 L per minute nasal cannula. Chest x-ray findings are also stable Hypotension, Randall and the patient is currently off pressors Non-small cell lung cancer status post right upper lobectomy, done on 08/19/2023. Two regional hilar lymph nodes were positive for metastasis. No other lymph nodes involved. The patient had T2b N 1 M0 disease. Persistent postop right apical pneumothorax, improved Right lung abscess, A CT of the chest 09/28/2023 demonstrated focal severe consolidation of the right upper lobe measuring 7.7 cm with what appears to be a fluid density concerning for pulmonary abscess. Pleural fluid culture positive for gram positive bacilli/brevibacterium species. Remains on vancomycin. Follow-up computed tomography scan today 10/07/2023 continues to show a residual lung abscess measuring approximate 6.0 x 5.0 cm, previously 8.2 x 7.4 cm's. Leukocytosis, improved Normocytic normochromic anemia, without any obvious blood loss Chronic obstructive pulmonary disease, with a FEV1 53% of predicted, stable. Former tobacco dependence Plan: Aggressive pulmonary toileting Daily chest x-ray Anterior chest tube in place Pain control with oxycodone and Toradol. Increase IV fluids to 50 mL an hour Pain is under adequate control Jimenez cath is out Continue vancomycin and meropenem We'll keep the patient intensive care unit for now. Titrate oxygen flow to maintain a saturation above 90%, currently on 2 L of oxygen by nasal cannula We will continue to follow
--- NOTE | 2023-10-17 09:31 | P.PN ---
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 History of non-small cell carcinoma with neuroendocrine differentiation, consistent with large cell neuroendocrine carcinoma status post robotic-assisted right upper lobectomy on 08/19/2023 and subsequent bronchoscopy with placement of right thoracostomy tube, chronic tobacco dependence with recent cessation, COPD, asthma, hyperlipidemia, GERD, diverticulitis status post bowel resection, osteoarthritis POD #4 Redo Thoracotomy, Extensive lysis of adhesions, Right middle lobectomy, Cryo-ablation of intercostal nerves 3-7. The patient was seen and examined in follow-up today 10/17/2023 at her bedside in the intensive care unit. She is currently sitting up to the bedside chair, is awake, alert, oriented 3 and in no acute apparent distress. She denies any complaints of shortness of breath at this time, although complains of some shortness of breath with activity while walking in the hallway. He is complaining of some surgical type pain to her right chest tube insertion site currently rating her pain 7 out of 10 on the pain scale. Oxygen saturations are 95% on 2 L nasal cannula and she is achieving 750 mL on her incentive spirometry with encouragement. Her right pleural posterior chest tube was removed yesterday without incident. Her right anterior chest tube remains in place to waterseal. Intermittent air leak is present. Draining thin serosanguineous drainage with 60 mL output in the last 24 hours. She remained hemodynamically stable and is currently on no inotropic or pressor support. Laboratory and chest x-ray results reviewed. Objective - Vital Signs Vital signs: Vital Signs Temp 97.9 F 10/17/23 02:00 Pulse 98 10/17/23 09:09 Resp 22 10/17/23 07:00 BP 97/56 10/17/23 07:00 Pulse Ox 97 10/17/23 07:00 FiO2 35 10/16/23 19:00 Intake & Output 10/16/23 10/17/23 10/17/23 18:59 06:59 18:59 Intake Total 4945.942 5216 50 Output Total 1990 835 Balance -449.087 325 50 Weight 80.7 kg Intake: IV 889 1010 50 Invasive Line 9 20 60 Meropenem 1 gm In Sodium 200 100 Chloride 0.9% 100 ml @ 33 .3 mls/hr IVPB Q8HR [facility] Rx#:[id number] Pressure bag 9 Sodium Chloride 0.9% 1, 400 600 50 000 ml @ 50 mls/hr IV . Q20H [facility] Rx#:[id number] Sodium Chloride 0.9% 1, 10 000 ml @ 75 mls/hr IV . [id number] [facility] Rx#:[id number] Vancomycin 1,250 mg In 250 250 Sodium Chloride 0.9% 250 ml @ 125 mls/hr IVPB Q12H [facility] Rx#:[id number] Intake, IV Titration 1.913 Amount Vasopressin 20 unit In 1.913 Sodium Chloride 0.9% 50 ml @ 0.04 UNITS/MIN 6.12 mls/hr IV .Q8H20M [facility] Rx# :[id number] Oral 650 150 Output: Chest Tube Drainage 150 35 R. Chest Tube - A ( 120 35 Anterior) R. Chest Tube - B ( 30 Posterior) Urine 1840 800 Other: Voiding Method Bedside Commode Bedside Commode # Voids 2 1 # Bowel Movements 2 ABP, PAP, CO, CI - Last Documented Arterial Blood Pressure 81/41 - Exam CONSTITUTIONAL: Appears comfortable, cooperative, no acute distress. RESPIRATORY: Lungs sounds diminished bilaterally. Respirations are symmetrical, nonlabored. Currently on 2 L nasal cannula with oxygen saturation 95%. Able to achieve 750 mL on incentive spirometry. Strong cough. CARDIOVASCULAR: S1, S2 present. Regular rate and rhythm, sinus rhythm on telemetry. Palpable peripheral pulses bilaterally. No edema present. No calf pain or tenderness noted. SCDs present. GASTROINTESTINAL: Abdomen soft, nontender, nondistended. Active bowel sounds present 4 quadrants. Tolerating diet. Passing flatus. GENITOURINARY: Continues to void, urine output 400 mL in the last 8 hours. INTEGUMENTARY: Skin is warm and dry with evidence of good perfusion. Right chest thoracotomy incision well approximated, isela in place and covered with dry intact dressing. NEUROLOGIC: Cranial nerves II through XII intact. No focal deficits. Epidural remains in place. MUSKULOSKELETAL: Able to move all extremities, strength equal bilaterally, gait normal. PSYCHIATRIC: Alert and oriented to person place and time, appropriate affect, intact judgment and insight. INVASIVE LINES AND TUBES: Right pleural anterior chest tube present and connected to wall suction, intermittent air leak is present. Right pleural chest tube with 60 mL serosanguineous drainage overnight, 130mL in the last 24 hours. - Allied health notes Allied health notes reviewed: nursing - Labs CBC & Chem 7: 10/17/23 05:33 10/17/23 05:33 Labs: Abnormal Lab Results - Last 24 Hours (Table) 10/17/23 10/17/23 Range/Units 05:33 05:33 WBC 3.6 L (3.8-10.6) k/uL RBC 2.53 L (3.80-5.40) m/uL Hgb 7.5 L (11.4-16.0) gm/dL Hct 23.5 L (34.0-46.0) % RDW 16.5 H (11.5-15.5) % Potassium 3.3 L (3.5-5.1) mmol/L Creatinine 0.51 L (0.52-1.04) mg/dL Calcium 7.6 L (8.4-10.2) mg/dL Microbiology - Last 24 Hours (Table) 10/14/23 16:56 Blood Culture - Preliminary Blood - Imaging and Cardiology Chest x-ray: report reviewed, image reviewed Assessment and Plan Assessment: Necrosis and lung abscess of right middle lobe, computed tomography scan of the chest on 09/28/2023 showing a small right pleural effusion, a residual loculated small anterior upper lung pneumothorax measuring 4.5 cm, a focal severe consolidation of the adjacent right upper lung measuring 7.7 cm, a fluid density, possible severe pneumonia or pulmonary abscess, and possible second ovary abscess or cavity necrosis with air-fluid level anterior right mid lung measuring 9.2 x 8.2 x 7.4 cm, status post right middle lobectomy Leukocytosis, likely secondary to above Normocytic normochromic anemia, no obvious blood loss Non-small cell carcinoma with neuroendocrine differentiation, consistent with large cell neuroendocrine carcinoma, 2 of 4 hilar nodes positive on pathology, status post robotic-assisted right upper lobectomy on 08/19/2023 and subsequent bronchoscopy with placement of right thoracostomy tube COPD with a recent FEV1 showing a predicted value of 87% and a DLCO 55% of predicted value Asthma Hyperlipidemia GERD History of diverticulitis, status post bowel resection Chronic tobacco dependence with recent cessation Osteoarthritis Plan: Keep her right anterior pleural chest tube in place to water seal. Continue to monitor for air leak resolution. Wean oxygen as tolerated. Encourage use of incentive spirometry 10 times every hour while awake. Continue aggressive pulmonary toileting. Monitor daily labs and chest x-rays. GI and DVT prophylaxis. Continue to follow pathology results, remains pending. Increase activity as tolerated. Out of bed for all meals. Antibiotic management per infectious disease recommendations. She is currently on Merrem 1 g IV piggyback every 8 hours and vancomycin 1250 mg IV piggyback every [address] transfer orders to the third floor cardiac stepdown unit tomorrow 10/18/2023. More recommendations to follow based on patient's clinical course. Time with Patient: Greater than 30
[2023-10-17] MEDS: LIDOCAINE 4% PATCH TOPICAL SCH (09:40)
[2023-10-17] MEDS: ACETAMINOPHEN TAB 500 MG TAB PO PRN ×2 (09:40→15:35)
--- NOTE | 2023-10-17 11:12 | XR ---
EXAMINATION TYPE: XR chest 1V portable DATE OF EXAM: 10/17/2023 Comparison: 10/16/2023 Clinical History: 58-year-old female s/p right middle lobectomy Findings: Right-sided chest tube in place. Surgical material at the right hilum. Skin siela along the lateral aspect of right hemithorax. Interstitial densities throughout the right lung persist with slight imp rovement. Small right pleural effusion remains. Stable to increasing left basilar opacity. Left PICC tip at the lower SVC. Heart upper limits of normal in size. Volume loss right hemithorax is similar. No appreciable pneumothorax. Impression: 1. Similar postsurgical change and volume loss in the right hemithorax with slightly improving inters titial densities throughout the right lung. Underlying small right effusion. 2. Right-sided chest tube in place. No appreciable pneumothorax. 3. Slightly increasing left basilar opacity, probably a small effusion with adjacent atelectasis and/ or consolidation.
--- NOTE | 2023-10-17 21:16 | P.PN ---
Subjective Progress Note Date: 10/17/23 patient is a 57-year-old lady with past medical history significant for right upper lobe non-small cell lung carcinoma status post robotic-assisted VATS involving a right upper lobectomy on 08/19/23 who presented to the ER because of abnormal computed tomography scan findings and persistent shortness of breath. Patient had recent VATS of right upper lobe surgery done in August, post operative course was complicated by persistent right-sided pneumothorax and opacification of the right mid lung area. After the surgery patient stated that she was not feeling well. Patient has been having worsening shortness of breath on exertion. Patient was also having productive cough which with green colored phlegm. Patient was also having fevers at home. Patient was being followed up closely by pulmonology as listed per CT surgery in outpatient settings. Because of these symptoms, patient had outpatient computed tomography scan done which showed ocal severe consolidation of the right upper lobe measuring 7.7 cm with what appears to be a fluid density concerning for pulmonary abscess. There is an adjacent residual loculated small anterior upper lung pneumothorax measuring 4.5 cm. There is a possible secondary pulmonary abscess or cavitary necrosis with air-fluid level anterior right mid lung measuring 9.2 x 8.2 x 7.4 cm. because of these findings, patient was referred to the ER 10/06/2023 Patient evaluated sitting up in bed. No drainage noted from atrium overnight. Pigtail catheter remains n place. Chest xray today reveals stable appearance right lung with pneumothorax vs. cavitation apex. Small effusion may be present. Repeat sputum culture final showing normal hubert. The pleural fluid is finalized showing brevibacterium species. 10/07/2023 Patient is evaluated today sitting up in bed. Legs are swollen, patient has been receiving IV fluids which will be stopped. IV lasix x 1 will be given and recommending SCDs for this. Edema is non pitting. Patient had chest xray this AM showing possible loculated pneumothorax vs. cavitary process. Subpulmonic right basilar effusion. The left lung is clear. Pigtail catheter remains in place again minimal to no drainage overnight. CT following closely. Repeat sputum showing normal hubert. Remains on IV antibiotics. Patient remains on room air. 10/08/[address] yesterday showing residual lung abscess with significant fluid content remaining. Thickening of the right pectoralis major muscle with some air and possibly fluid within and may relate to developing infection in this location. Pigtail catheter remains in place. Bilateral pleural effusions. Small left and moderate right pleural effusion. Sodium 139, renal function stable. 10/09/2023 Patient evaluated today sitting up in bed. Lower extremity edema is improved after a second dose of IV lasix, remains off fluids she is eating and drinking well. BENJAMÍN hose to be applied today should help with the swelling as well. Patient continues with the pigtail catheter which has had minimal drainage over the last 2 days. Patient will be going for thoracotomy and right middle lobectomy on Wednesday. Patient remains on IV vancomycin per ID and PICC line is in place. 10/10/2023 Patient evaluated today sitting up in bed. Remains on 2L of oxygen. Lower extremity edema improved. Continues on IV vancomycin. Pending repeat chest xray reports. Cardiothoracic following closely patient will go for right middle lobectomy and thoracotomy on Wednesday. 10/13/2023 Patient is seen in follow-up this morning currently nothing by mouth as she is scheduled to undergo thoracotomy with right middle lobectomy with CT surgery. Pulmonary following closely patient continues on 2 L of oxygen along with antibiotics. Plan is for going to ICU postop and will await surgical report. Patient is sitting up with multiple family members at bedside with questions and concerns were answered to the best of our ability. Patient is currently afeb rile with no reports of worsening shortness of breath. Patient denies any nausea or vomiting and currently nothing by mouth for the procedure. 10/14/2023 Patient is seen in follow-up in the ICU status post right middle lobectomy with CT surgery yesterday. Patient with multiple medical consultations following continues on low-dose pressor support for hypotension. Patient also on epidural pain pump with anesthesia following has been titrating meds accordingly due to continued low blood pressure patient has been receiving large amounts of fluid showing some minimal improvement in blood pressures. Patient is alert and oriented sitting up in the chair and continued on 2 L via nasal cannula. Patient is afebrile and maintained on meropenem along with vancomycin with infectious disease following. Encouraged incentive spirometer use and awaiting follow-up labs. Patient continues with indwelling Jimenez catheter for continued strict intake and output monitoring. PT/OT therapy for evaluation. 10/15/2023 Patient is seen in follow-up today currently sitting up in the chair remains in the ICU with multiple medical consultations following. Patient continues on meropenem along with vancomycin and awaiting cultures. Patient continues with right-sided chest tubes being placed to waterseal. Patient continues on low- dose vasopressin his blood pressures are low. IV fluids being discontinued as chest x-ray shows some pleural effusions. Blood pressures are marginal and will be monitored closely in the ICU. Patient continues on 2-3 L via nasal cannula continues to report shortness of breath although no worse. Patient is having chest wall pain at the chest tube sites and pain medications being adjusted including any oral medications. Patient is afebrile and hemoglobin is stable although trending down but above 7 today. Recommend to monitor closely and transfuse of 7 or less. No reported nausea or vomiting patient tolerating diet needs encouragement with meals. 10/16/2023 Patient is in the MICU. Awake alert and oriented x 3. On 2 L oxygen via nasal cannula. Was able to ambulate in the floyd but still having exertional dyspnea. Also complains of soreness at the chest tube site. Right posterior pleural chest tube was removed today. Still having anterior chest tube draining serosanguineous fluid.. Patient has been afebrile. Remains on antibiotics in the form of vancomycin and meropenem. No complaints of nausea or vomiting. No cough or sputum production. Pleural fluid culture showed Brevibacterium species on 10/01/2023.. Laboratory test showed WBC 5.1 hemoglobin 7.8 and platelets 185, sodium 132 potassium 3.8 chloride 99 bicarb is 28 BUN 15 and creatinine 0.48 Chest x-ray this morning showed postsurgical changes right hemithorax with [address]. No appreciable pneumothorax. Pleural parenchymal opacities throughout the right side of the chest are fairly similar. Slightly increasing patchy atelectasis or infiltrate at the left base. 10/17/2023 Patient is currently sitting in the chair. Awake alert and oriented x 3. On 2 L oxygen via nasal cannula. Right anterior chest tube in place draining serosanguineous fluid. Pain is controlled with medications. Patient has been afebrile. Chest x-ray today showed similar postsurgical changes and volume loss in the right hemithorax with slightly improving interstitial densities throughout right lung. Underlying small right effusion. Right-sided chest tube in place. No appreciable pneumothorax. Laboratory data showed WBC 3.6 hemoglobin 7.5 and platelets 217 potassium 3.3 chloride 103 bicarb is 27 BUN 10 and creatinine 0.9 and calcium 7.6. Patient is being continued on antibiotics in the form of vancomycin and meropenem. Current medications reviewed. Review of Systems Constitutional: Denied any fatigue denied any fever. Cardio vascular: denied any chest pain, palpitations, reports chest wall pain with chest tubes Gastrointestinal: denied any nausea, vomiting, diarrhea Pulmonary: Reports shortness of breath that Worsens with exertion Neurologic denied any new focal deficits All medications were reviewed PHYSICAL EXAMINATION: GENERAL: The patient is alert and oriented x3, . Well developed, well nourished. Obese HEENT: Pupils are round and equally reacting to light. EOMI. No scleral icterus. No conjunctival pallor. Normocephalic, atraumatic. No pharyngeal erythema. No thyromegaly. CARDIOVASCULAR: S1 and S2 muffled PULMONARY: Diminished breath sounds bilaterally and more so on the right with Crackles in the right lung base. Right thoracotomy tube in place. With serosanguineous output noted ABDOMEN: Soft, nontender, nondistended, normoactive bowel sounds. No palpable organomegaly. MUSCULOSKELETAL: No joint swelling or deformity. EXTREMITIES: No cyanosis, clubbing +1 peripheral edema/ankle edema non pitting. NEUROLOGICAL: Gross neurological examination did not reveal any focal deficits. Diffusely weak SKIN: No rashes. Assessment: Pneumonia with possible lung abscess, status post bronchoscopy, status post right middle lobe lobectomy on 10/13/2023 Rule out Cavitary lung lesion/pulmonary abscess as well as possible second ovary abscess or cavity necrosis Non-small cell lung cancer status post right upper lobectomy, done on 08/19/2023. Neuroendocrine differentiation consistent with large cell neuroendocrine carcinoma Residual right apical loculated pneumothorax s/p lobectomy Relative hypotension, currently maintained on vasopressin Normocytic anemia Chronic obstructive pulmonary disease History of asthma GERD history of diverticulitis, status post bowel resection Hyperlipidemia history Former smoker with recent cessation Obesity with BMI 32.7 GI prophylaxiss Full Code Plan: Continue antibiotics in the form of IV vancomycin and meropenam. The bronchial washings are negative for malignancy and sputum showing gram positive. Repeat sputum culture showing normal hubert. Infectious disease is following Patient is status post right middle lobe ectomy and anterior right-sided chest tubes showing serosanguineous fluid. Patient continues on low-dose vasopressin for hypotension. Patient also continues on epidural pain pump and is being discontinued today per anesthesia. Oral medications being added to the pain regimen Continue BENJAMÍN hose and to elevate lower extremities while sitting. Continue to encourage incentive spirometer 10 x an hour while awake. Patient is currently maintained on 2 L via nasal cannula recommend wean FiO2 as tolerated Increase activity level. Will need extensive PT/OT therapy postoperatively once cleared by CT surgery Repeat labs along with chest x-ray in the a.m. Due to multiple complex medical issues, prognosis is guarded Objective - Vital Signs Vital signs: Vital Signs Temp 98.8 F 10/17/23 12:00 Pulse 94 10/17/23 15:26 Resp 21 10/17/23 15:00 BP 116/67 10/17/23 15:00 Pulse Ox 96 10/17/23 15:00 FiO2 35 10/16/23 19:00 Intake & Output 10/16/23 10/17/23 10/17/23 18:59 06:59 18:59 Intake Total 0628.283 8036 1707 Output Total 5214 761 0700 Balance -449.087 325 607 Weight 80.7 kg Intake: IV 889 1010 870 Invasive Line 1 30 Invasive Line 9 20 60 40 Meropenem 1 gm In Sodium 200 100 100 Chloride 0.9% 100 ml @ 33 .3 mls/hr IVPB Q8HR [facility] Rx#:[id number] Pressure bag 9 Sodium Chloride 0.9% 1, 400 600 450 000 ml @ 50 mls/hr IV . Q20H [facility] Rx#:[id number] Sodium Chloride 0.9% 1, 10 000 ml @ 75 mls/hr IV . [id number] [facility] Rx#:[id number] Vancomycin 1,250 mg In 250 250 250 Sodium Chloride 0.9% 250 ml @ 125 mls/hr IVPB Q12H [facility] Rx#:[id number] Intake, IV Titration 1.913 Amount Vasopressin 20 unit In 1.913 Sodium Chloride 0.9% 50 ml @ 0.04 UNITS/MIN 6.12 mls/hr IV .Q8H20M [facility] Rx# :[id number] Oral 650 150 837 Output: Chest Tube Drainage 150 35 0 R. Chest Tube - A ( 120 35 0 Anterior) R. Chest Tube - B ( 30 Posterior) Urine 1600 896 9344 Other: Voiding Method Bedside Commode Bedside Commode # Voids 2 1 # Bowel Movements 2 0 ABP, PAP, CO, CI - Last Documented Arterial Blood Pressure 81/41 - Labs CBC & Chem 7: 10/17/23 05:33 10/17/23 17:15 Labs: Abnormal Lab Results - Last 24 Hours (Table) 10/17/23 10/17/23 Range/Units 05:33 05:33 WBC 3.6 L (3.8-10.6) k/uL RBC 2.53 L (3.80-5.40) m/uL Hgb 7.5 L (11.4-16.0) gm/dL Hct 23.5 L (34.0-46.0) % RDW 16.5 H (11.5-15.5) % Potassium 3.3 L (3.5-5.1) mmol/L Creatinine 0.51 L (0.52-1.04) mg/dL Calcium 7.6 L (8.4-10.2) mg/dL Microbiology - Last 24 Hours (Table) 10/14/23 16:56 Blood Culture - Preliminary Blood
[2023-10-18] MEDS: KETOROLAC 15 MG/ML 1 ML VIAL IVP SCH ×4 (00:37→17:53)
[2023-10-18] MEDS: HEPARIN SODIUM,PORCINE 5,000 UNIT/ML 1 ML VIAL SQ SCH ×3 (00:38→15:45)
[2023-10-18] MEDS: MEROPENEM 1 GM in SODIUM CHLORIDE 0.9% 100 ML IVPB SCH ×2 (00:38→09:49)
[2023-10-18 04:53] LABS: Anisocytosis Slight; Basophils % (A) 0 %; Eosinophils # (A) 0.2 k/uL (0-0.7); Eosinophils % (A) 5 %; HCT 25.1 % (34.0-46.0); HGB 7.8 gm/dL (11.4-16.0); Hypochromasia Marked; Lymphocytes # (A) 0.8 k/uL (1.0-4.8); Lymphocytes % (A) 20 %; MCH 29.2 pg (25.0-35.0); MCHC 30.9 g/dL (31.0-37.0); MCV 94.7 fL (80.0-100.0); Mean Platelet Volume 8.2; Monocytes # (A) 0.3 k/uL (0-1.0); Monocytes % (A) 7 %; Neutrophils # (A) 2.5 k/uL (1.3-7.7); Neutrophils % (A) 66 %; Platelet Count 250 k/uL (150-450); Poikilocytosis Slight; RBC 2.65 m/uL (3.80-5.40); RDW 16.5 % (11.5-15.5); WBC 3.8 k/uL (3.8-10.6)
[2023-10-18 05:11] LABS: African American GFR (CKD) >90 (>60 ml/min/1.73 sqM); Anion Gap 5 mmol/L; Blood Urea Nitrogen 12 mg/dL (7-17); Calcium 7.7 mg/dL (8.4-10.2); Carbon Dioxide 27 mmol/L (22-30); Chloride 104 mmol/L (98-107); Glucose 83 mg/dL (74-99); Magnesium 1.6 mg/dL (1.6-2.3); Non-African American GFR(CKD) >90 (>60 ml/min/1.73 sqM); Sodium 136 mmol/L (137-145)
[2023-10-18 05:16] LABS: Potassium 4.1 mmol/L (3.5-5.1)
[2023-10-18] MEDS: CYCLOBENZAPRINE 10 MG TAB PO SCH ×3 (05:35→21:41)
[2023-10-18] MEDS: PANTOPRAZOLE 40 MG TABLET PO SCH (06:54)
--- NOTE | 2023-10-18 07:37 | P.PN ---
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 the patient is status post robotic assisted right upper lobectomy on 08/19/2023, now presented to hospital with persistent cough shortness of breath did have a low-grade fever abnormal CT suspicious for possible pneumonia/lung abscess, the patient is status post bronchoscopy by pulmonary and patient also have a pigtail catheter placed in by IR, subsequently Patient is status post redo thoracotomy with lysis of adhesion and right middle lobectomy completed on 10/13/2023 On today's evaluation that is 10/15/2023 the patient remains to be afebrile, the patient is breathing comfortably on 2 L nasal cannula supplemental oxygen, the patient has been complaining of right-sided chest pain did have occasional cough but no sputum production, patient denies nausea vomiting or any diarrhea, and no abdominal pain, the patient is currently requiring less pressor support with nursing staff Patient white count is down to 7.9, creatinine 0.44, pleural fluid culture grow ing Brevibacterium species, BAL with dylan Objective - Vital Signs Vital signs: Vital Signs Temp 98 F 10/15/23 08:00 Pulse 95 10/15/23 11:47 Resp 18 10/15/23 11:47 BP 103/56 10/15/23 11:30 Pulse Ox 92 L 10/15/23 11:00 FiO2 Intake & Output 10/14/23 10/15/23 10/15/23 18:59 06:59 18:59 Intake Total 744.401 5389.271 464.562 Output Total 1320 930 118 Balance -777.971 548.271 346.562 Weight 81 kg 78.8 kg Intake: IV 3 600 225 Pressure bag 3 Sodium Chloride 0.9% 1, 375 000 ml @ 50 mls/hr IV . Q20H [facility] Rx#:[id number] Sodium Chloride 0.9% 1, 225 225 000 ml @ 75 mls/hr IV . [id number] [facility] Rx#:[id number] Intake, IV Titration 339.029 758.271 9.562 Amount ACETAMINOPHEN IV (For NPO 100 ) 1,000 mg In Empty Bag 1 bag @ 400 mls/hr IVPB Q6H [facility] Rx#:[id number] Phenylephrine 40 mg In 281.779 274.825 Sodium Chloride 0.9% 250 ml @ 0.5 MCG/KG/MIN 12. 184 mls/hr IV .[id number] [facility] Rx#:[id number] Ropivacaine 250 mg 5.800 fentaNYL (PF) 1,250 mcg In Sodium Chloride 0.9% 175 ml @ Per Protocol EPIDURAL .Q0M [facility] Rx#: [id number] Ropivacaine 250 mg 51.45 fentaNYL (PF) 625 mcg In Sodium Chloride 0.9% 188 ml @ Per Protocol EPIDURAL .Q0M [facility] Rx#: [id number] Sodium Chloride 0.9% 1, 75 000 ml @ 75 mls/hr IV . [id number] [facility] Rx#:[id number] Vancomycin 1,250 mg In 250 Sodium Chloride 0.9% 250 ml @ 125 mls/hr IVPB Q12H [facility] Rx#:[id number] Vasopressin 20 unit In 58.446 9.562 Sodium Chloride 0.9% 50 ml @ 0.04 UNITS/MIN 6.12 mls/hr IV .Q8H20M [facility] Rx# :[id number] Oral 200 120 230 Output: Chest Tube Drainage 355 235 60 R. Chest Tube - A 210 155 20 R. Chest Tube - B 145 80 40 Urine 965 695 58 Other: Voiding Method Indwelling Catheter Indwelling Catheter # Bowel Movements 1 2 ABP, PAP, CO, CI - Last Documented Arterial Blood Pressure 81/41 - Exam GENERAL DESCRIPTION: A middle-age female up in bed in no distress RESPIRATORY SYSTEM: Unlabored breathing , decreased breath sounds at the base HEART: S1 S2 regular rate and rhythm , ABDOMEN: Soft , no tenderness EXTREMITIES: No edema feet - Labs CBC & Chem 7: 10/18/23 03:47 10/18/23 03:47 Labs: Abnormal Lab Results - Last 24 Hours (Table) 10/11/23 10/14/23 10/14/23 Range/Units 15:38 15:40 16:49 WBC 15.6 H (3.8-10.6) k/uL RBC 3.02 L (3.80-5.40) m/uL Hgb 8.9 L (11.4-16.0) gm/dL Hct 27.0 L (34.0-46.0) % RDW 16.8 H (11.5-15.5) % Sodium (137-145) mmol/L Creatinine (0.52-1.04) mg/dL Glucose (74-99) mg/dL Calcium (8.4-10.2) mg/dL C-Reactive Protein 21.3 H (<1.0) mg/dL Total Protein (6.3-8.2) g/dL Albumin (3.5-5.0) g/dL Procalcitonin (0.02-0.09) ng/mL Crossmatch See Detail 10/14/23 10/15/23 10/15/23 Range/Units 16:49 03:50 03:50 WBC (3.8-10.6) k/uL RBC 2.54 L (3.80-5.40) m/uL Hgb 7.8 L (11.4-16.0) gm/dL Hct 23.0 L (34.0-46.0) % RDW 16.6 H (11.5-15.5) % Sodium 132 L (137-145) mmol/L Creatinine 0.44 L (0.52-1.04) mg/dL Glucose 117 H (74-99) mg/dL Calcium 7.2 L (8.4-10.2) mg/dL C-Reactive Protein (<1.0) mg/dL Total Protein 4.1 L (6.3-8.2) g/dL Albumin 1.9 L (3.5-5.0) g/dL Procalcitonin 0.94 H (0.02-0.09) ng/mL Crossmatch Assessment and Plan (1) Pneumonia Current Visit: Yes Status: Acute Code(s): J18.9 - PNEUMONIA, UNSPECIFIED ORGANISM SNOMED Code(s): 378161456 (2) Allergy to multiple antibiotics Current Visit: Yes Status: Acute Code(s): Z88.1 - ALLERGY STATUS TO OTHER ANTIBIOTIC AGENTS SNOMED Code(s): 503606482 (3) Lung abscess Current Visit: Yes Status: Acute Code(s): J85.2 - ABSCESS OF LUNG WITHOUT PNEUMONIA SNOMED Code(s): 63862755 Plan: 1patient presented to hospital with sepsis in this patient who did have a fever tachycardia hypoxemia elevated white count source is unlikely pneumonia with question of possible abscess/empyema in this patient with recent surgery we will need to cover for resistant gram-positive as well as gram-negative pathogen. 2patient with the penicillin and cephalosporin allergy that would limit the number of antibiotics safe to use. 3-patient is status post bronchoscopy lavage and also have placement of a pigtail catheter by IR , pleural fluid cultures are currently growing Brevibacterium species 4patient status post right middle lobe lobectomy, and noticed to have slight worsening of the white count and hypotension , concerning for possible sepsis related to it , pt to continue with meropenem and vancomycin , while waiting for repeat cultures to be finalized Dictation was produced using [employer] dictation software. please excuse any grammatical, word or spelling errors. Time with Patient: Less than 30
--- NOTE | 2023-10-18 07:40 | P.PN ---
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 the patient is status post robotic assisted right upper lobectomy on 08/19/2023, now presented to hospital with persistent cough shortness of breath did have a low-grade fever abnormal CT suspicious for possible pneumonia/lung abscess, the patient is status post bronchoscopy by pulmonary and patient also have a pigtail catheter placed in by IR, subsequently Patient is status post redo thoracotomy with lysis of adhesion and right middle lobectomy completed on 10/13/2023 On today's evaluation that is 10/16/2023 the patient continues to be afebrile, the patient is breathing comfortably on 2 L nasal cannula oxygen, the patient right-sided chest pain has decreased in intensity , Pt did have occasional cough but no sputum production, patient denies nausea vomiting or any diarrhea, and no abdominal pain, the patient is off pressor support per nursing staff Patient white count is 5.19, creatinine 0.48, pleural fluid culture growing Brevibacterium species, BAL with dylan Objective - Vital Signs Vital signs: Vital Signs Temp 98.0 F 10/16/23 08:00 Pulse 101 H 10/16/23 09:30 Resp 21 10/16/23 09:30 BP 109/59 10/16/23 09:30 Pulse Ox 90 L 10/16/23 09:30 FiO2 Intake & Output 10/15/23 10/16/23 10/16/23 18:59 06:59 18:59 Intake Total 1434.019 792.861 364.913 Output Total 473 320 120 Balance 961.019 472.861 244.913 Weight 78.8 kg 80.7 kg Intake: IV 575 470 363 Meropenem 1 gm In Sodium 100 100 Chloride 0.9% 100 ml @ 33 .3 mls/hr IVPB Q8HR [facility] Rx#:[id number] Pressure bag 3 Sodium Chloride 0.9% 1, 575 120 10 000 ml @ 75 mls/hr IV . [id number] [facility] Rx#:[id number] Vancomycin 1,250 mg In 250 250 Sodium Chloride 0.9% 250 ml @ 125 mls/hr IVPB Q12H [facility] Rx#:[id number] Intake, IV Titration 29.019 22.861 1.913 Amount Vasopressin 20 unit In 29.019 22.861 1.913 Sodium Chloride 0.9% 50 ml @ 0.04 UNITS/MIN 6.12 mls/hr IV .Q8H20M [facility] Rx# :[id number] Oral 830 300 Output: Chest Tube Drainage 160 110 90 R. Chest Tube - A ( 80 50 60 Anterior) R. Chest Tube - B ( 80 60 30 Posterior) Urine 313 210 30 Other: Voiding Method Indwelling Catheter Indwelling Catheter Indwelling Catheter # Bowel Movements 2 ABP, PAP, CO, CI - Last Documented Arterial Blood Pressure 81/41 - Exam GENERAL DESCRIPTION: A middle-age female up in bed in no distress RESPIRATORY SYSTEM: Unlabored breathing , decreased breath sounds at the base HEART: S1 S2 regular rate and rhythm , ABDOMEN: Soft , no tenderness EXTREMITIES: No edema feet - Labs CBC & Chem 7: 10/18/23 03:47 10/18/23 03:47 Labs: Abnormal Lab Results - Last 24 Hours (Table) 10/16/23 10/16/23 Range/Units 07:10 07:10 RBC 2.57 L (3.80-5.40) m/uL Hgb 7.8 L (11.4-16.0) gm/dL Hct 23.8 L (34.0-46.0) % RDW 16.7 H (11.5-15.5) % Lymphocytes # 0.7 L (1.0-4.8) k/uL Sodium 132 L (137-145) mmol/L Creatinine 0.48 L (0.52-1.04) mg/dL Calcium 7.5 L (8.4-10.2) mg/dL Microbiology - Last 24 Hours (Table) 10/14/23 16:56 Blood Culture - Preliminary Blood Assessment and Plan (1) Pneumonia Current Visit: Yes Status: Acute Code(s): J18.9 - PNEUMONIA, UNSPECIFIED ORGANISM SNOMED Code(s): 834443456 (2) Allergy to multiple antibiotics Current Visit: Yes Status: Acute Code(s): Z88.1 - ALLERGY STATUS TO OTHER ANTIBIOTIC AGENTS SNOMED Code(s): 044380773 (3) Lung abscess Current Visit: Yes Status: Acute Code(s): J85.2 - ABSCESS OF LUNG WITHOUT PNEUMONIA SNOMED Code(s): 41358010 Plan: 1patient presented to hospital with sepsis in this patient who did have a fever tachycardia hypoxemia elevated white count source is unlikely pneumonia with question of possible abscess/empyema in this patient with recent surgery 2patient with the penicillin and cephalosporin allergy that would limit the number of antibiotics safe to use. 3-patient is status post bronchoscopy lavage and also have placement of a pigtail catheter by IR , pleural fluid cultures grew Brevibacterium species 4patient subsequently status post right middle lobe lobectomy on 10/13/2023 and post op noticed to have slight worsening of the white count and hypotension , concerning for possible sepsis related to it , Pt has shown clinical improvement with meropenem and vancomycin which will be continued while waiting for repeat cultures to be finalized Dictation was produced using [employer] dictation software. please excuse any gr ammatical, word or spelling errors. Time with Patient: Less than 30
--- NOTE | 2023-10-18 07:43 | P.PN ---
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 the patient is status post robotic assisted right upper lobectomy on 08/19/2023, now presented to hospital with persistent cough shortness of breath did have a low-grade fever abnormal CT suspicious for possible pneumonia/lung abscess, the patient is status post bronchoscopy by pulmonary and patient also have a pigtail catheter placed in by IR, subsequently Patient is status post redo thoracotomy with lysis of adhesion and right middle lobectomy completed on 10/13/2023 On today's evaluation that is 10/17/2023 the patient is afebrile, the patient is breathing comfortably on 2 L nasal cannula oxygen, the patient right-sided chest pain has decreased in intensity , Pt cough has decreased in intensity and no sputum production, patient denies abdominal pain and no nausea vomiting diarrhea Patient white count is 3.6, creatinine 0.51, pleural fluid culture growing Brevibacterium species, BAL with dylan Objective - Vital Signs Vital signs: Vital Signs Temp 97.9 F 10/17/23 02:00 Pulse 98 10/17/23 09:09 Resp 22 10/17/23 07:00 BP 97/56 10/17/23 07:00 Pulse Ox 97 10/17/23 07:00 FiO2 35 10/16/23 19:00 Intake & Output 10/16/23 10/17/23 10/17/23 18:59 06:59 18:59 Intake Total 4038.464 6964 50 Output Total 1990 835 Balance -449.087 325 50 Weight 80.7 kg Intake: IV 889 1010 50 Invasive Line 9 20 60 Meropenem 1 gm In Sodium 200 100 Chloride 0.9% 100 ml @ 33 .3 mls/hr IVPB Q8HR [facility] Rx#:[id number] Pressure bag 9 Sodium Chloride 0.9% 1, 400 600 50 000 ml @ 50 mls/hr IV . Q20H [facility] Rx#:[id number] Sodium Chloride 0.9% 1, 10 000 ml @ 75 mls/hr IV . [id number] [facility] Rx#:[id number] Vancomycin 1,250 mg In 250 250 Sodium Chloride 0.9% 250 ml @ 125 mls/hr IVPB Q12H [facility] Rx#:[id number] Intake, IV Titration 1.913 Amount Vasopressin 20 unit In 1.913 Sodium Chloride 0.9% 50 ml @ 0.04 UNITS/MIN 6.12 mls/hr IV .Q8H20M [facility] Rx# :[id number] Oral 650 150 Output: Chest Tube Drainage 150 35 R. Chest Tube - A ( 120 35 Anterior) R. Chest Tube - B ( 30 Posterior) Urine 1840 800 Other: Voiding Method Bedside Commode Bedside Commode # Voids 2 1 # Bowel Movements 2 ABP, PAP, CO, CI - Last Documented Arterial Blood Pressure 81/41 - Exam GENERAL DESCRIPTION: A middle-age female up in bed in no distress RESPIRATORY SYSTEM: Unlabored breathing , decreased breath sounds at the base HEART: S1 S2 regular rate and rhythm , ABDOMEN: Soft , no tenderness EXTREMITIES: No edema feet - Labs CBC & Chem 7: 10/18/23 03:47 10/18/23 03:47 Labs: Abnormal Lab Results - Last 24 Hours (Table) 10/17/23 10/17/23 Range/Units 05:33 05:33 WBC 3.6 L (3.8-10.6) k/uL RBC 2.53 L (3.80-5.40) m/uL Hgb 7.5 L (11.4-16.0) gm/dL Hct 23.5 L (34.0-46.0) % RDW 16.5 H (11.5-15.5) % Potassium 3.3 L (3.5-5.1) mmol/L Creatinine 0.51 L (0.52-1.04) mg/dL Calcium 7.6 L (8.4-10.2) mg/dL Microbiology - Last 24 Hours (Table) 10/14/23 16:56 Blood Culture - Preliminary Blood Assessment and Plan (1) Pneumonia Current Visit: Yes Status: Acute Code(s): J18.9 - PNEUMONIA, UNSPECIFIED ORGANISM SNOMED Code(s): 078426431 (2) Allergy to multiple antibiotics Current Visit: Yes Status: Acute Code(s): Z88.1 - ALLERGY STATUS TO OTHER ANTIBIOTIC AGENTS SNOMED Code(s): 146288739 (3) Lung abscess Current Visit: Yes Status: Acute Code(s): J85.2 - ABSCESS OF LUNG WITHOUT PNEUMONIA SNOMED Code(s): 56045487 Plan: 1patient presented to hospital with sepsis in this patient who did have a fever tachycardia hypoxemia elevated white count source is unlikely pneumonia with question of possible abscess/empyema in this patient with recent surgery 2patient with the penicillin and cephalosporin allergy that would limit the number of antibiotics safe to use. 3-patient is status post bronchoscopy lavage and also have placement of a pig tail catheter by IR , pleural fluid cultures grew Brevibacterium species 4patient subsequently status post right middle lobe lobectomy on 10/13/2023 and post op noticed to have slight worsening of the white count and hypotension , concerning for possible sepsis related to it 5- Patient is slowly clinically improving and will continue with meropenem and vancomycin while waiting for repeat cultures to be finalized Dictation was produced using [employer] dictation software. please excuse any gramma tical, word or spelling errors.
[2023-10-18] MEDS ORDERED: Magnesium Replacement Protocol 1 EACH MISC MISCELLANE PRN (07:51)
[2023-10-18] MEDS ORDERED: MAGNESIUM SULFATE-D5W PMX 1 GM in DEXTROSE/WATER 1 100ML.BAG IVPB SCH (08:00)
[2023-10-18] MEDS: FORMOTEROL FUMARATE 20 MCG/2 ML NEBU INHALATION SCH ×2 (08:34→21:44)
[2023-10-18] MEDS: IPRATROPIUM-ALBUTEROL 3 ML NEB INHALATION SCH ×4 (08:34→21:44)
[2023-10-18] MEDS: LIDOCAINE 4% PATCH TOPICAL SCH (08:53)
[2023-10-18] MEDS: VANCOMYCIN 1,250 MG in SODIUM CHLORIDE 0.9% 250 ML IVPB SCH (08:53)
--- NOTE | 2023-10-18 08:57 | XR ---
EXAMINATION TYPE: XR chest 1V portable DATE OF EXAM: 10/18/2023 Comparison: 10/17/2023 Clinical History: 58-year-old female Status post right middle lobectomy Findings: Right-sided chest tube in place. Surgical changes right hilum and medial right apex. Interstitial and patchy opacity throughout the right mid and lower lung stable to slightly improved with trace right pleural effusion. Skin isela along the lateral right chest wall. Mild patchy retrocardiac and left basilar opacity along with trace left effusion remains but with slight improvement. Left PICC tip at the lower SVC. Impression: 1. Postsurgical change on the right with corresponding volume loss in the right hemithorax redemonstr ated. Right-sided chest tube in place. Interstitial and patchy opacities within the right mid and low er lung are similar to slightly improved along with trace effusion. 2. Ongoing small left effusion with adjacent atelectasis and/or consolidation. Slightly improved.
--- NOTE | 2023-10-18 10:46 | P.PN ---
Subjective Progress Note Date: 10/18/23 Principal diagnosis: Necrosis and abscess of right middle lobe, Non small cell lung carcinoma of the right upper lobe, Pneumonia with possible lung abscess, small right pleural eff usion, residual loculated small anterior upper lung pneumothorax, leukocytosis, normocytic normochromic anemia. History of non-small cell carcinoma with neuroendocrine differentiation, consistent with large cell neuroendocrine carcinoma status post robotic-assisted right upper lobectomy on 08/19/2023 and subsequent bronchoscopy with placement of right thoracostomy tube, chronic tobacco dependence with recent cessation, COPD, asthma, hyperlipidemia, GERD, diverticulitis status post bowel resection, osteoarthritis POD #5 Redo Thoracotomy, Extensive lysis of adhesions, Right middle lobectomy, Cryo-ablation of intercostal nerves 3-7. The patient was seen and examined in follow-up today 10/18/2023 at her bedside in the intensive care unit. She is currently sitting up to the bedside chair, is awake, alert, oriented 3 and in no acute apparent distress. She denies any complaints of shortness of breath at this time, although is complaining of some surgical type pain to her right chest tube insertion site currently rating her pain 5 out of 10 on the pain scale. Oxygen saturations are 95% on 2 L nasal cannula and she is achieving 500-750 mL on her incentive spirometry with encouragement. Her right anterior chest tube remains in place to waterseal. Intermittent air leak is present. Draining thin serosanguineous drainage with 100 mL output in the last 24 hours. She remained hemodynamically stable and is currently on no inotropic or pressor support. Laboratory and chest x-ray re sults reviewed. Objective - Vital Signs Vital signs: Vital Signs Temp 97.8 F 10/18/23 08:00 Pulse 111 H 10/18/23 10:00 Resp 20 10/18/23 10:00 BP 137/66 10/18/23 10:00 Pulse Ox 97 10/18/23 10:00 FiO2 35 10/16/23 19:00 Intake & Output 10/17/23 10/18/23 10/18/23 18:59 06:59 18:59 Intake Total 1587 1220 590 Output Total 1600 1140 600 Balance -13 80 -10 Weight 80.7 kg 84 kg Intake: IV 750 420 350 Invasive Line 1 40 30 Invasive Line 9 60 40 Meropenem 1 gm In Sodium 200 100 100 Chloride 0.9% 100 ml @ 33 .3 mls/hr IVPB Q8HR [facility] Rx#:[id number] Sodium Chloride 0.9% 1, 200 000 ml @ 50 mls/hr IV . Q20H [facility] Rx#:[id number] Vancomycin 1,250 mg In 250 250 250 Sodium Chloride 0.9% 250 ml @ 125 mls/hr IVPB Q12H [facility] Rx#:[id number] Oral 837 800 240 Output: Chest Tube Drainage 0 140 50 R. Chest Tube - A ( 0 140 50 Anterior) Urine 1600 1000 550 Other: Voiding Method Bedside Commode Bedside Commode Bedside Commode # Voids 1 1 # Bowel Movements 0 ABP, PAP, CO, CI - Last Documented Arterial Blood Pressure 81/41 - Exam CONSTITUTIONAL: Appears comfortable, cooperative, no acute distress. RESPIRATORY: Lungs sounds diminished bilaterally. Respirations are symmetrical, nonlabored. Currently on 2 L nasal cannula with oxygen saturation 95%. Able to achieve 500-750 mL on incentive spirometry. Strong cough. CARDIOVASCULAR: S1, S2 present. Regular rate and rhythm, sinus rhythm on telemetry. Palpable peripheral pulses bilaterally. No edema present. No calf pain or tenderness noted. SCDs present. GASTROINTESTINAL: Abdomen soft, nontender, nondistended. Active bowel sounds present 4 quadrants. Tolerating diet. Passing flatus. Bowel movement yesterday 10/17/2023. GENITOURINARY: Continues to void, urine output 550 mL in the last 8 hours. INTEGUMENTARY: Skin is warm and dry with evidence of good perfusion. Right chest thoracotomy incision well approximated, isela in place and covered with dry intact dressing. NEUROLOGIC: Cranial nerves II through XII intact. No focal deficits. MUSKULOSKELETAL: Able to move all extremities, strength equal bilaterally, gait normal. PSYCHIATRIC: Alert and oriented to person place and time, appropriate affect, intact judgment and insight. INVASIVE LINES AND TUBES: Right pleural anterior chest tube present and connected to wall suction, intermittent air leak is present. Right pleural chest tube with 50 mL serosanguineous drainage overnight, 100mL in the last 24 hours. - Allied health notes Allied health notes reviewed: nursing - Labs CBC & Chem 7: 10/18/23 03:47 10/18/23 03:47 Labs: Abnormal Lab Results - Last 24 Hours (Table) 10/18/23 10/18/23 Range/Units 03:47 03:47 RBC 2.65 L (3.80-5.40) m/uL Hgb 7.8 L (11.4-16.0) gm/dL Hct 25.1 L (34.0-46.0) % MCHC 30.9 L (31.0-37.0) g/dL RDW 16.5 H (11.5-15.5) % Lymphocytes # 0.8 L (1.0-4.8) k/uL Sodium 136 L (137-145) mmol/L Creatinine 0.46 L (0.52-1.04) mg/dL Calcium 7.7 L (8.4-10.2) mg/dL Microbiology - Last 24 Hours (Table) 10/14/23 16:56 Blood Culture - Preliminary Blood - Imaging and Cardiology Chest x-ray: report reviewed, image reviewed Assessment and Plan Assessment: Necrosis and lung abscess of right middle lobe, computed tomography scan of the chest on 09/28/2023 showing a small right pleural effusion, a residual loculated small anterior upper lung pneumothorax measuring 4.5 cm, a focal severe consolidation of the adjacent right upper lung measuring 7.7 cm, a fluid dens ity, possible severe pneumonia or pulmonary abscess, and possible second ovary abscess or cavity necrosis with air-fluid level anterior right mid lung measuring 9.2 x 8.2 x 7.4 cm, status post right middle lobectomy, continues to have an air leak to her right anterior Leukocytosis, likely secondary to above Normocytic normochromic anemia, no obvious blood loss Non-small cell carcinoma with neuroendocrine differentiation, consistent with large cell neuroendocrine carcinoma, 2 of 4 hilar nodes positive on pathology, status post robotic-assisted right upper lobectomy on 08/19/2023 and subsequent bronchoscopy with placement of right thoracostomy tube COPD with a recent FEV1 showing a predicted value of 87% and a DLCO 55% of predicted value Asthma Hyperlipidemia GERD History of diverticulitis, status post bowel resection Chronic tobacco dependence with recent cessation Osteoarthritis Plan: Keep her right anterior pleural chest tube in place to water seal. Continue to monitor for air leak resolution. Wean oxygen as tolerated. Encourage use of incentive spirometry 10 times every hour while awake. Continue aggressive pulmonary toileting. Monitor daily labs and chest x-rays. GI and DVT prophylaxis. Continue to follow pathology results, remains pending. Increase activity as tolerated. Out of bed for all meals. Antibiotic management per infectious disease recommendations. Merrem and vancomycin discontinued today. We will place transfer orders to the third floor cardiac stepdown unit. More recommendations to follow based on patient's clinical course. Time with Patient: Less than 30
[2023-10-18] MEDS: ACETAMINOPHEN TAB 500 MG TAB PO PRN (13:02)
--- NOTE | 2023-10-18 13:30 | P.PN ---
Subjective Progress Note Date: 10/18/23 Principal diagnosis: Right lung abscess/pneumonia I am seeing this patient in consultation today 09/30/2023 for suspected pulmonary abscess. 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 She did have a complicated postoperative hospital stay with a persistent right sided pneumothorax and opacification of the right midlung area. She has been closely followed up on an outpatient basis. She does follow Dr. Davey in the pulmonary office, and also had a office visit with Dr. Espino from cardiothoracic surgery on 09/17. She states that she has "not really been 100%" since surgery. More recently she has had symptoms of exertional shortness of breath, right-sided back pain, productive cough with yellow/green sputum sometimes pink tinged, and subjective fevers. She has received courses of Levaquin and doxycycline outpatient. A CT of the chest done 2 days ago demonstrated focal severe consolidation of the right upper lobe measuring 7.7 cm with what appears to be a fluid density concerning for pulmonary abscess. There is an adjacent residual loculated small anterior upper lung pneumothorax measu ring 4.5 cm. There is a possible secondary pulmonary abscess or cavitary necrosis with air-fluid level anterior right mid lung measuring 9.2 x 8.2 x 7.4 cm. For this reason, she was directed to the emergency room yesterday. Patient was given doses of Levaquin and vancomycin in the emergency room. She does have a penicillin ALLERGY. Bronchoscopy with BAL done on 08/23/2023 did not identify significant bacterial growth. CBC shows a WBC count of 16, hemoglobin 9.6, hematocrit 30.4, platelets 694. BMP on arrival shows sodium 133, potassium 3.2, chloride 83, serum bicarbonate 34, BUN 12, creatinine 0.5, glucose 112. Normal saline infusing at 130 ML's per hour. Lactic acid level I.9. Patient is currently lying in bed, on 2 L/m nasal cannula, in no acute distress. SPO2 97%. She is slightly tachycardic with a heart rate of 116 bpm. She was febrile with a T-max of 100F. Blood cultures pending. Hemodynamically stable. Patient was seen and examined today on 10/01/23, seems to be doing about the same, continues to have cough and shortness of breath. Cough is productive with thick yellow phlegm. Underwent a bronchoscopy today , please refer to the full operative report. Patient was found to have significant area and secretions coming out of the right middle lobe, mucosa in the right middle lobe was noted to be thick LA edematous, and has quite a bit of abnormal appearance, multiple biopsies from the right lobe bronchus were done, and lavage of the right middle lobe/medial segment was also performed. In the meantime the patient remains on antibiotics, and these will likely be adjusted based on the final culture from the BAL. Patient continues to have leukocytosis with WBC count of 17.9 hemoglobin 8.9, basic metabolic profile is normal Reevaluated today on 10/02/23, patient was seen by interventional radiology yesterday, and she underwent placement of a pigtail catheter into her right lung. Significant purulent drainage is noted into the pleural VAC, chest x-ray is showing improvement, clinically the patient is feeling better, remains on antibiotics, cultures are pending however the Gram stain is showing gram- positive cocci and that is from the pleural effusion fluid. BAL Gram stain is showing moderate PMNs and mixed organisms including gram-negative bacilli and gram-positive cocci. Patient is tolerating antibiotics well, and apparently she had one of placed treatment into the lung. Abscess. Patient refusing to have any more. WBC count is down today to 6.2 from 17.9 hemoglobin is 7.9, basic metabolic profile is normal. Renal profile is normal patient remains in the meantime on vancomycin and on aztreonam. On 10/15/2023, patient is awake and alert and sitting up on a chair. The patient is comfortable. She is complaining of pain along the right chest. Epidural fentanyl was discontinued. The patient is taken oxycodone 10 mg every 4 hours on a when necessary basis. She is also on Toradol. Antibiotic coverage is with meropenem and vancomycin. Meanwhile, she is on 2 L of oxygen by nasal cannula. She was having some issues with a low CVP and hypotension yesterday. Jesu-Synephrine was weaned off and discontinued. She was given IV fluids. Currently she is on a low-dose vasopressin at 0.02 units per minutes. The patient otherwise is producing adequate amount of urine output. She is awake and alert. The right-sided chest tubes are still in place. The patient has an apical chest tube is still leaking and the output from the chest tube is in order of 100 mL over the past 8 hours. No evidence of any air leak on the pos terior chest tube which is running approximately 70 mL's over the past 8 hours. The patient had a follow-up chest x-ray today. No evidence of any pneumothorax. Chest tubes are in adequate location. Patient is set up postthoracotomy. The patient also developed a small right posterior atelectasis/pleural effusion. Left lung remains clear. On 10/16/2023, the patient is still having some soreness across her surgical one-sided. Otherwise, she is stable on 3 L of oxygen by nasal cannula. Chest x-ray shows no interval change. The patient has a apical and the posterior chest tube. No air leak and the posterior chest tube. Output is minimal at this point in time. The apical chest tube is showing intermittent air leak. She is currently on waterseal. She is using the senna spirometer. She is on no pressors. IV fluids are currently at KVO. Vasopressin has been discontinued since this morning at around 7:30 AM. Her white cell count is improved and currently is down to 5.1 with a hemoglobin of 7.8. Sodium is at 132, bicarb is at 28 with a BUN of 15 and a creatinine of 0.4. She remains on IV vancomycin. She is also on IV cefepime. Chest x-ray shows no evidence of any pneumothorax. She remains on bronchodilators. No other interval change as yesterday. She is going to ambulate. 10/17/2023, the patient is on oxygen at 2 L. The posterior chest tube was removed yesterday. The patient has right anterior apical chest tube in place. There is persistent air leak still. The patient is on waterseal. The chest x- ray shows adequate expansion of the right lung. No evidence of any pneumothorax. A small amount of pleural effusion is present on the left. She is calm and comfortable and she is also ambulating with help of the nursing staff. Electrodes are all stable, BUN is at 10 with a creatinine of 0.5. The white cell cause of 3.6 with a hemoglobin of 7.5. Remains on the same antibiotic coverage. Remains on bronchodilators. She is currently on Merrem and vancomycin. Patient was reevaluated today on 10/18/2023, remains in the ICU, patient is on 2 L nasal cannula, continues to have significant air leak, but the patient is not in any distress, cultures from the fluid had shown Brrevbacterium species, should respond to vancomycin which the patient is presently on along with the Merrem. Patient received a full course of treatment since admission, and i nfectious disease will likely stop antibiotics today. Chest x-ray continues to show adequate expansion of the right lung, and in no evidence of pneumothorax. WBC count today is 3.8 hemoglobin 7.8 remains low patient had received a total of 7 units of packed RBCs since admission, basic metabolic profile is normal, renal profile is normal, patient is hemodynamically stable, and hopefully she could be transferred out of the ICU to a monitor bed on selective today. Objective - Vital Signs Vital signs: Vital Signs Temp 97.8 F 10/18/23 08:00 Pulse 108 H 10/18/23 13:07 Resp 21 10/18/23 11:00 BP 137/66 10/18/23 11:00 Pulse Ox 96 10/18/23 11:00 FiO2 35 10/16/23 19:00 Intake & Output 10/17/23 10/18/23 10/18/23 18:59 06:59 18:59 Intake Total 1587 1220 590 Output Total 1600 1140 1100 Balance -13 80 -510 Weight 80.7 kg 84 kg Intake: IV 750 420 350 Invasive Line 1 40 30 Invasive Line 9 60 40 Meropenem 1 gm In Sodium 200 100 100 Chloride 0.9% 100 ml @ 33 .3 mls/hr IVPB Q8HR [facility] Rx#:[id number] Sodium Chloride 0.9% 1, 200 000 ml @ 50 mls/hr IV . Q20H [facility] Rx#:[id number] Vancomycin 1,250 mg In 250 250 250 Sodium Chloride 0.9% 250 ml @ 125 mls/hr IVPB Q12H [facility] Rx#:[id number] Oral 837 800 240 Output: Chest Tube Drainage 0 140 50 R. Chest Tube - A ( 0 140 50 Anterior) Urine 1600 1000 1050 Other: Voiding Method Bedside Commode Bedside Commode Bedside Commode # Voids 1 1 # Bowel Movements 0 ABP, PAP, CO, CI - Last Documented Arterial Blood Pressure 81/41 - Exam Physical Exam: Revealed a 57-year-old female in no distress 2 L nasal cannula and O2 saturation is 96 up to 98% Head: Atraumatic, normocephalic. HEENT:[Neck is supple.] [No neck masses.] [No thyromegaly.] [No JVD.] Chest: [Diminished breath sounds on the right side, right-sided chest tube is noted with significant air leak Cardiac Exam: [Normal S1 and S2, no S3 gallop, no murmur.] Abdomen: [Soft, nontender, no megaly, no rebound, no guarding, normal bowel sounds.] Extremities: [No clubbing, no edema, no cyanosis.] Neurological Exam: [No focal neurologic deficit.] Alert oriented 3 Psychiatric: Normal mood affect and normal mental status examination - Labs CBC & Chem 7: 10/18/23 03:47 10/18/23 03:47 Labs: Abnormal Lab Results - Last 24 Hours (Table) 10/18/23 10/18/23 Range/Units 03:47 03:47 RBC 2.65 L (3.80-5.40) m/uL Hgb 7.8 L (11.4-16.0) gm/dL Hct 25.1 L (34.0-46.0) % MCHC 30.9 L (31.0-37.0) g/dL RDW 16.5 H (11.5-15.5) % Lymphocytes # 0.8 L (1.0-4.8) k/uL Sodium 136 L (137-145) mmol/L Creatinine 0.46 L (0.52-1.04) mg/dL Calcium 7.7 L (8.4-10.2) mg/dL Microbiology - Last 24 Hours (Table) 10/14/23 16:56 Blood Culture - Preliminary Blood Assessment and Plan Assessment: Impression: Thoracotomy with extensive lysis of adhesions and right middle lobectomy. The patient is postop day #5, surgery was on 10/13, continues to have right-sided chest tube in place, continues to have significant air leak. Not to mention the patient did receive a total of 7 units of packed RBCs and 2 units of fresh was a plasma with 1 units of platelets since admission. No clear-cut evidence of obvious blood loss. Non-small cell lung cancer status post right upper lobectomy, done on 08/19/2023. Two regional hilar lymph nodes were positive for metastasis. No other lymph nodes involved. Post-operative hospital stay was complicated by persistent residual right apical pneumothorax. During this hospitalization, she did have a follow-up bronchoscopy with BAL done on 08/31/2023 Likely secondary lung abscess, status post pigtail catheter placement and drainage. Fluid was positive for brevibacterium species, treated with vancomycin Normocytic normochromic anemia, without any obvious blood loss Chronic obstructive pulmonary disease, with a FEV1 53% of predicted, stable. Former tobacco dependence Recommendation: Continue pulmonary toilet Continue incentive spirometry Continue chest tube in place Continue pain control management with oxycodone and Toradol Antibiotics to be addressed by infectious disease and address possible stopping antibiotics Continue bronchodilators Continue oxygen, titrate accordingly We will continue to follow Time with Patient: Less than 30
--- NOTE | 2023-10-18 14:10 | P.PN ---
Subjective Progress Note Date: 10/18/23 Patient evaluated on medical floor. Pigtail catheter remains in place with 20 mls of output documented overnight. Patient continues with productive cough brown tinged sputum and repeat sputum culture has been sent and pending at this time. Chest xray today reveals cavitation vs. pneumothorax right apex. Small effusion may be present. Bronchial washings reveal inflammation, negative for diagnostic malignancy. Patient does have known NSCLC. Remains on IV aztreonam and IV vancomycin. Procalcitonin level 0.15. 10/06/2023 Patient evaluated sitting up in bed. No drainage noted from [facility] overnight. P igtail catheter remains n place. Chest xray today reveals stable appearance right lung with pneumothorax vs. cavitation apex. Small effusion may be present. Repeat sputum culture final showing normal hubert. The pleural fluid is finalized showing brevibacterium species. 10/07/2023 Patient is evaluated today sitting up in bed. Legs are swollen, patient has been receiving IV fluids which will be stopped. IV lasix x 1 will be given and recommending SCDs for this. Edema is non pitting. Patient had chest xray this AM showing possible loculated pneumothorax vs. cavitary process. Subpulmonic right basilar effusion. The left lung is clear. Pigtail catheter remains in place again minimal to no drainage overnight. CT following closely. Repeat sputum showing normal hubert. Remains on IV antibiotics. Patient remains on room air. 10/08/[address] yesterday showing residual lung abscess with significant fluid content remaining. Thickening of the right pectoralis major muscle with s ome air and possibly fluid within and may relate to developing infection in this location. Pigtail catheter remains in place. Bilateral pleural effusions. Small left and moderate right pleural effusion. Sodium 139, renal function stable. 10/09/2023 Patient evaluated today sitting up in bed. Lower extremity edema is improved after a second dose of IV lasix, remains off fluids she is eating and drinking well. BENJAMÍN hose to be applied today should help with the swelling as well. Patient continues with the pigtail catheter which has had minimal drainage over the last 2 days. Patient will be going for thoracotomy and right middle lobectomy on Wednesday. Patient remains on IV vancomycin per ID and PICC line is in place. 10/10/2023 Patient evaluated today sitting up in bed. Remains on 2L of oxygen. Lower extremity edema improved. Continues on IV vancomycin. Pending repeat chest xray reports. Cardiothoracic following closely patient will go for right middle lobectomy and thoracotomy on Wednesday. 10/13/2023 Patient is seen in follow-up this morning currently nothing by mouth as she is scheduled to undergo thoracotomy with right middle lobectomy with CT surgery. Pulmonary following closely patient continues on 2 L of oxygen along with antibiotics. Plan is for going to ICU postop and will await surgical report. Patient is sitting up with multiple family members at bedside with questions and concerns were answered to the best of our ability. Patient is currently afebrile with no reports of worsening shortness of breath. Patient denies any nausea or vomiting and currently nothing by mouth for the procedure. 10/14/2023 Patient is seen in follow-up in the ICU status post right middle lobectomy with CT surgery yesterday. Patient with multiple medical consultations following continues on low-dose pressor support for hypotension. Patient also on epidural pain pump with anesthesia following has been titrating meds accordingly due to continued low blood pressure patient has been receiving large amounts of fluid showing some minimal improvement in blood pressures. Patient is alert and oriented sitting up in the chair and continued on 2 L via nasal cannula. Patient is afebrile and maintained on meropenem along with vancomycin with infectious disease following. Encouraged incentive spirometer use and awaiting follow-up labs. Patient continues with indwelling Jimenez catheter for continued strict intake and output monitoring. PT/OT therapy for evaluation. 10/15/2023 Patient is seen in follow-up today currently sitting up in the chair remains in the ICU with multiple medical consultations following. Patient continues on meropenem along with vancomycin and awaiting cultures. Patient continues with right-sided chest tubes being placed to waterseal. Patient continues on low- dose vasopressin his blood pressures are low. IV fluids being discontinued as chest x-ray shows some pleural effusions. Blood pressures are marginal and will be monitored closely in the ICU. Patient continues on 2-3 L via nasal cannula continues to report shortness of breath although no worse. Patient is having chest wall pain at the chest tube sites and pain medications being adjusted including any oral medications. Patient is afebrile and hemoglobin is stable although trending down but above 7 today. Recommend to monitor closely and transfuse of 7 or less. No reported nausea or vomiting patient tolerating diet needs encouragement with meals. 10/16/2023 Patient is in the MICU. Awake alert and oriented x 3. On 2 L oxygen via nasal cannula. Was able to ambulate in the floyd but still having exertional dyspnea. Also complains of soreness at the chest tube site. Right posterior pleural chest tube was removed today. Still having anterior chest tube draining ser osanguineous fluid.. Patient has been afebrile. Remains on antibiotics in the form of vancomycin and meropenem. No complaints of nausea or vomiting. No cough or sputum production. Pleural fluid culture showed Brevibacterium species on 10/01/2023.. Laboratory test showed WBC 5.1 hemoglobin 7.8 and platelets 185, sodium 132 potassium 3.8 chloride 99 bicarb is 28 BUN 15 and creatinine 0.48 Chest x-ray this morning showed postsurgical changes right hemithorax with [address]. No appreciable pneumothorax. Pleural parenchymal opacities throughout the right side of the chest are fairly similar. Slightly increasing patchy atelectasis or infiltrate at the left base. 10/17/2023 Patient is currently sitting in the chair. Awake alert and oriented x 3. On 2 L oxygen via nasal cannula. Right anterior chest tube in place draining serosanguineous fluid. Pain is controlled with medications. Patient has been afebrile. Chest x-ray today showed similar postsurgical changes and volume loss in the right hemithorax with slightly improving interstitial densities througho ut right lung. Underlying small right effusion. Right-sided chest tube in place. No appreciable pneumothorax. Laboratory data showed WBC 3.6 hemoglobin 7.5 and platelets 217 potassium 3.3 chloride 103 bicarb is 27 BUN 10 and creatinine 0.9 and calcium 7.6. Patient is being continued on antibiotics in the form of vancomycin and meropenem. 10/18/2023 Patient is seen in follow-up this morning continues to be in the ICU. Patient with one remaining chest tube and discussion of possible removal of the other in the next 24-48 hours. Follow-up chest x-ray ordered showing continue po stsurgical right hemothorax redemonstrated with patchy opacification is on the right middle and lower lung slightly improved with a trace of effusion with an ongoing small left effusion with atelectasis. Patient does have incentive spirometer at the bedside and reports has been using very frequently. Patient continues on antibiotics in the form of meropenem and vancomycin with infectious disease following an cultures thus far have been negative. Hemoglobin is stable at 7.8 today and BMP within normal limits. Magnesium slightly low and replacement protocol ordered. Will follow up on repeat labs. Review of Systems Constitutional: Denied any fatigue denied any fever. Cardio vascular: denied any chest pain, palpitations, reports chest wall pain with one chest tube remaining Gastrointestinal: denied any nausea, vomiting, diarrhea Pulmonary: Reports shortness of breath that Worsens with exertion Neurologic denied any new focal deficits All medications were reviewed PHYSICAL EXAMINATION: GENERAL: The patient is alert and oriented x3, . Well developed, well nourished. Obese HEENT: Pupils are round and equally reacting to light. EOMI. No scleral icterus. No conjunctival pallor. Normocephalic, atraumatic. No pharyngeal erythema. No thyromegaly. CARDIOVASCULAR: S1 and S2 muffled PULMONARY: Diminished breath sounds bilaterally and more so on the right with Crackles in the right lung base. Right thoracotomy tube in place. With serosanguineous output noted ABDOMEN: Soft, nontender, nondistended, normoactive bowel sounds. No palpable organomegaly. MUSCULOSKELETAL: No joint swelling or deformity. EXTREMITIES: No cyanosis, clubbing +1 peripheral edema/ankle edema non pitting. NEUROLOGICAL: Gross neurological examination did not reveal any focal deficits. Diffusely weak SKIN: No rashes. Assessment: Pneumonia with possible lung abscess, status post bronchoscopy, status post right middle lobe lobectomy on 10/13/2023 Rule out Cavitary lung lesion/pulmonary abscess as well as possible second ovary abscess or cavity necrosis Non-small cell lung cancer status post right upper lobectomy, done on 08/19/2023. 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 The bronchial washings are negative for malignancy and sputum showing gram positive. Repeat sputum culture showing normal hubert. Infectious disease is following Patient is status post right middle lobe ectomy and continues with 2 right-sided chest tubes showing serosanguineous fluid. Repeat chest x-ray ordered showing some pleural effusions and IV fluids has been discontinued Patient off pressor support. Oral medications being added to the pain regimen Continue BENJAMÍN hose and to elevate lower extremities while sitting. Continue to encourage incentive spirometer 10 x an hour while awake. Patient is currently maintained on 2 L via nasal cannula recommend wean FiO2 as tolerated Increase activity level. Will need extensive PT/OT therapy postoperatively once cleared by CT surgery Repeat labs reveal magnesium 1.6 and being replaced per protocol. We'll follow up on repeat labs. Due to multiple complereviewed. Chest x-ray shows continued right hemothorax redemonstrated with one right-sided chest tube in place with interstitial opacity opacities within the right mid and lower lung similar to previous exams with stable trace effusion. Per nursing staff No plans for removal of the chest tube at this time The impression and plan of care has been dictated by Pamela Bryant, Nurse Practitioner as directed. Dr. Lavern MD I have performed a history and examination and MDM of this patient, discussed the same with the dictator, and agree with the dictator's assessment and plan as written ,documented as a scribe. Based on total visit time, I have performed more than 50% of the visit. Objective - Vital Signs Vital signs: Vital Signs Temp 98 F 10/18/23 00:00 Pulse 102 H 10/18/23 08:52 Resp 15 10/18/23 07:00 BP 102/67 10/18/23 07:00 Pulse Ox 95 10/18/23 08:34 FiO2 35 10/16/23 19:00 Intake & Output 10/17/23 10/18/23 10/18/23 18:59 06:59 18:59 Intake Total 1587 1220 Output Total 1600 1140 50 Balance -13 80 -50 Weight 80.7 kg 84 kg Intake: IV 750 420 Invasive Line 1 40 30 Invasive Line 9 60 40 Meropenem 1 gm In Sodium 200 100 Chloride 0.9% 100 ml @ 33 .3 mls/hr IVPB Q8HR [facility] Rx#:[id number] Sodium Chloride 0.9% 1, 200 000 ml @ 50 mls/hr IV . Q20H [facility] Rx#:[id number] Vancomycin 1,250 mg In 250 250 Sodium Chloride 0.9% 250 ml @ 125 mls/hr IVPB Q12H [facility] Rx#:[id number] Oral 837 800 Output: Chest Tube Drainage 0 140 50 R. Chest Tube - A ( 0 140 50 Anterior) Urine 1600 1000 0 Other: Voiding Method Bedside Commode Bedside Commode # Voids 1 # Bowel Movements 0 ABP, PAP, CO, CI - Last Documented Arterial Blood Pressure 81/41 - Labs CBC & Chem 7: 10/18/23 03:47 10/18/23 03:47 Labs: Abnormal Lab Results - Last 24 Hours (Table) 10/18/23 10/18/23 Range/Units 03:47 03:47 RBC 2.65 L (3.80-5.40) m/uL Hgb 7.8 L (11.4-16.0) gm/dL Hct 25.1 L (34.0-46.0) % MCHC 30.9 L (31.0-37.0) g/dL RDW 16.5 H (11.5-15.5) % Lymphocytes # 0.8 L (1.0-4.8) k/uL Sodium 136 L (137-145) mmol/L Creatinine 0.46 L (0.52-1.04) mg/dL Calcium 7.7 L (8.4-10.2) mg/dL Microbiology - Last 24 Hours (Table) 10/14/23 16:56 Blood Culture - Preliminary Blood
[2023-10-18] MEDS: SERTRALINE 50 MG TAB PO SCH (14:18)
[2023-10-18] MEDS: oxyCODONE ER 10 MG TAB.ER.12H PO SCH ×2 (15:40→21:42)
[2023-10-19] MEDS: KETOROLAC 15 MG/ML 1 ML VIAL IVP SCH ×5 (00:41→23:37)
[2023-10-19] MEDS: HEPARIN SODIUM,PORCINE 5,000 UNIT/ML 1 ML VIAL SQ SCH ×4 (00:43→23:39)
[2023-10-19] MEDS: CYCLOBENZAPRINE 10 MG TAB PO SCH ×3 (03:26→21:24)
[2023-10-19] MEDS: PANTOPRAZOLE 40 MG TABLET PO SCH (06:09)
[2023-10-19] MEDS ORDERED: VANCOMYCIN TROUGH DUE 1 EACH MISC MISCELLANE ONE (07:00)
[2023-10-19] MEDS: FORMOTEROL FUMARATE 20 MCG/2 ML NEBU INHALATION SCH ×2 (07:46→21:38)
[2023-10-19] MEDS: IPRATROPIUM-ALBUTEROL 3 ML NEB INHALATION SCH ×4 (07:46→21:38)
--- NOTE | 2023-10-19 08:37 | XR ---
EXAMINATION TYPE: XR chest 1V portable DATE OF EXAM: 10/19/2023 COMPARISON: 10/18/2023 INDICATION: Post right lobectomy TECHNIQUE: Single frontal view of the chest is obtained. FINDINGS: The heart size is normal. These time shifted to the right. Right-sided chest tube is present. Surgic al skin isela are present laterally. Aeration of the right lung is diminished in relation to the le ft. Left basilar infiltrate is present, worsening. Correlate for atelectasis or pneumonia. The pulmonary vasculature is normal. No pneumothorax is evident. IMPRESSION: 1. Developing left lower lobe infiltrate. Small effusion may be present. 2. Postsurgical right lobectomy changes.
[2023-10-19] MEDS: LIDOCAINE 4% PATCH TOPICAL SCH (09:15)
[2023-10-19] MEDS: SERTRALINE 50 MG TAB PO SCH (09:15)
[2023-10-19] MEDS: oxyCODONE ER 10 MG TAB.ER.12H PO SCH ×2 (09:15→21:24)
[2023-10-19 09:54] LABS: Anisocytosis Slight; Basophils % (A) 0 %; Eosinophils # (A) 0.2 k/uL (0-0.7); Eosinophils % (A) 4 %; HCT 28.2 % (34.0-46.0); HGB 8.8 gm/dL (11.4-16.0); Hypochromasia Moderate; Lymphocytes % (A) 22 %; MCH 29.3 pg (25.0-35.0); MCHC 31.3 g/dL (31.0-37.0); MCV 93.8 fL (80.0-100.0); Mean Platelet Volume 7.8; Monocytes # (A) 0.3 k/uL (0-1.0); Monocytes % (A) 7 %; Neutrophils # (A) 2.8 k/uL (1.3-7.7); Neutrophils % (A) 64 %; Platelet Count 337 k/uL (150-450); RBC 3.01 m/uL (3.80-5.40); RDW 16.4 % (11.5-15.5); WBC 4.3 k/uL (3.8-10.6)
[2023-10-19 10:09] LABS: African American GFR (CKD) >90 (>60 ml/min/1.73 sqM); Anion Gap 8 mmol/L; Blood Urea Nitrogen 7 mg/dL (7-17); Calcium 8.1 mg/dL (8.4-10.2); Carbon Dioxide 30 mmol/L (22-30); Chloride 100 mmol/L (98-107); Glucose 83 mg/dL (74-99); Magnesium 1.6 mg/dL (1.6-2.3); Non-African American GFR(CKD) >90 (>60 ml/min/1.73 sqM); Potassium 3.5 mmol/L (3.5-5.1); Sodium 138 mmol/L (137-145)
[2023-10-19] MEDS ORDERED: FUROSEMIDE 10 MG/ML 2 ML VIAL IV STA (10:50)
--- NOTE | 2023-10-19 10:56 | P.PN ---
Subjective Progress Note Date: 10/19/23 Principal diagnosis: Necrosis and abscess of right middle lobe, Non small cell lung carcinoma of the right upper lobe, Pneumonia with possible lung abscess, small right pleural eff usion, residual loculated small anterior upper lung pneumothorax, leukocytosis, normocytic normochromic anemia. History of non-small cell carcinoma with neuroendocrine differentiation, consistent with large cell neuroendocrine carcinoma status post robotic-assisted right upper lobectomy on 08/19/2023 and subsequent bronchoscopy with placement of right thoracostomy tube, chronic tobacco dependence with recent cessation, COPD, asthma, hyperlipidemia, GERD, diverticulitis status post bowel resection, osteoarthritis POD #6 Redo Thoracotomy, Extensive lysis of adhesions, Right middle lobectomy, Cryo-ablation of intercostal nerves 3-7. The patient was seen and examined in follow-up today at her bedside on the third floor cardiac stepdown unit. Currently she is sitting up to bedside chair, is awake, alert, oriented 3 and is in no acute apparent distress. She denies any complaints of shortness of breath at this time, although continues to complain of surgical type pain to her right chest currently rating her pain 8 out of 10 on the pain scale. Some adjustments were made in her pain medication regimen yesterday. Oxygen saturations are 97% on 3 L nasal cannula and she is achieving around 750-1000 mL on her incentive spirometry with encouragement. Remote telemetry showing sinus tachycardia heart rate 112 bpm. The patient reports she was up ambulating in the cardiac stepdown unit hallway with standby assistance from her last evening and tolerated well. Right pleural chest tube remains in place to water seal, intermittent air leak is present. Draining thin serosanguineous drainage with 20 mL output in the last 8 hours and 300 mL output in the last 24 hours. Discussed with the patient the importance of wearing her sequential compression devices to her bilateral lower extremities. Surgical pathology results remain pending. Laboratory and chest x-ray results reviewed. Objective - Vital Signs Vital signs: Vital Signs Temp 98.2 F 10/19/23 09:13 Pulse 111 H 10/19/23 09:13 Resp 20 10/19/23 09:13 BP 128/70 10/19/23 09:13 Pulse Ox 97 10/19/23 09:13 FiO2 35 10/16/23 19:00 Intake & Output 10/18/23 10/19/23 10/19/23 18:59 06:59 18:59 Intake Total 590 0 Output Total 1650 20 Balance -1060 -20 0 Weight 83.5 kg Intake: IV 350 Meropenem 1 gm In Sodium 100 Chloride 0.9% 100 ml @ 33 .3 mls/hr IVPB Q8HR [facility] Rx#:[id number] Vancomycin 1,250 mg In 250 Sodium Chloride 0.9% 250 ml @ 125 mls/hr IVPB Q12H [facility] Rx#:[id number] Oral 240 0 Output: Chest Tube Drainage 50 20 R. Chest Tube - A ( 50 20 Anterior) Urine 1600 Other: Voiding Method Toilet Toilet Bedside Commode # Voids 1 2 1 ABP, PAP, CO, CI - Last Documented Arterial Blood Pressure 81/41 - Exam CONSTITUTIONAL: Appears comfortable, cooperative, no acute distress. RESPIRATORY: Lungs sounds diminished bilaterally. Respirations are symmetrical , nonlabored. Currently on 3 L nasal cannula with oxygen saturation 97%. Able to achieve 750-1000 mL on incentive spirometry. Strong cough. CARDIOVASCULAR: S1, S2 present. Regular rate and rhythm, sinus rhythm on telemetry. Palpable peripheral pulses bilaterally. No edema present. No calf pain or tenderness noted. SCDs present. GASTROINTESTINAL: Abdomen soft, nontender, nondistended. Active bowel sounds present 4 quadrants. Tolerating diet. Passing flatus. Bowel movement 023. GENITOURINARY: Continues to void INTEGUMENTARY: Skin is warm and dry with evidence of good perfusion. Right chest thoracotomy incision well approximated, isela in place and covered with dry intact dressing. NEUROLOGIC: Cranial nerves II through XII intact. No focal deficits. MUSKULOSKELETAL: Able to move all extremities, strength equal bilaterally, gait normal. PSYCHIATRIC: Alert and oriented to person place and time, appropriate affect, intact judgment and insight. INVASIVE LINES AND TUBES: Right pleural anterior chest tube present and connected to waterseal, intermittent air leak is present. Right pleural chest tube with 20 mL serosanguineous drainage overnight, 300mL in the last 24 hours. - Allied health notes Allied health notes reviewed: nursing - Labs CBC & Chem 7: 10/19/23 09:05 10/19/23 09:05 Labs: Abnormal Lab Results - Last 24 Hours (Table) 10/19/23 10/19/23 10/19/23 Range/Units 09:05 09:05 09:05 RBC 3.01 L (3.80-5.40) m/uL Hgb 8.8 L (11.4-16.0) gm/dL Hct 28.2 L (34.0-46.0) % RDW 16.4 H (11.5-15.5) % Creatinine 0.40 L (0.52-1.04) mg/dL Calcium 8.1 L (8.4-10.2) mg/dL Phosphorus 4.6 H (2.5-4.5) mg/dL Microbiology - Last 24 Hours (Table) 10/01/23 08:40 Acid Fast Bacilli Smear - Preliminary Bronchoalviolar Lavage - Right Acid Fast Bacilli Culture - Preliminary - Imaging and Cardiology Chest x-ray: report reviewed, image reviewed Assessment and Plan Assessment: Necrosis and lung abscess of right middle lobe, computed tomography scan of the chest on 09/28/2023 showing a small right pleural effusion, a residual loculated small anterior upper lung pneumothorax measuring 4.5 cm, a focal severe consolidation of the adjacent right upper lung measuring 7.7 cm, a fluid density, possible severe pneumonia or pulmonary abscess, and possible second ovary abscess or cavity necrosis with air-fluid level anterior right mid lung measuring 9.2 x 8.2 x 7.4 cm, status post right middle lobectomy, continues to have an air leak to her right anterior Leukocytosis, likely secondary to above Normocytic normochromic anemia, no obvious blood loss Non-small cell carcinoma with neuroendocrine differentiation, consistent with large cell neuroendocrine carcinoma, 2 of 4 hilar nodes positive on pathology, status post robotic-assisted right upper lobectomy on 08/19/2023 and subsequent bronchoscopy with placement of right thoracostomy tube COPD with a recent FEV1 showing a predicted value of 87% and a DLCO 55% of predicted value Asthma Hyperlipidemia GERD History of diverticulitis, status post bowel resection Chronic tobacco dependence with recent cessation Osteoarthritis Plan: Keep her right anterior pleural chest tube in place to water seal. Continue to monitor for air leak resolution. Wean oxygen as tolerated. Encourage use of incentive spirometry 10 times every hour while awake. Continue aggressive pulmonary toileting. Monitor daily labs and chest x-rays. GI and DVT prophylaxis. Continue to follow pathology results, remains pending. Increase activity as tolerated. Out of bed for all meals. Antibiotic management per infectious disease recommendations. Merrem and vancomycin discontinued yesterday. Start Mucinex 1200 mg by mouth twice a day and Mucomyst nebulizer. Start, budesonide 0.5 mg nebulizer twice a day. Nothing by mouth midnight for possible bronchoscopy 10/20/2023. More recommendations to follow based on patient's clinical course. Time with Patient: Less than 30
[2023-10-19] MEDS: POTASSIUM CHLORIDE ER 20 MEQ TAB.ER PO SCH ×2 (11:41→16:00)
[2023-10-19] MEDS: ACETYLCYSTEINE 800 MG/4 ML VIAL INHALATION SCH ×2 (11:41→21:38)
--- NOTE | 2023-10-19 15:11 | P.PN ---
Subjective Progress Note Date: 10/19/23 Patient evaluated on medical floor. Pigtail catheter remains in place with 20 mls of output documented overnight. Patient continues with productive cough brown tinged sputum and repeat sputum culture has been sent and pending at this time. Chest xray today reveals cavitation vs. pneumothorax right apex. Small effusion may be present. Bronchial washings reveal inflammation, negative for diagnostic malignancy. Patient does have known NSCLC. Remains on IV aztreonam and IV vancomycin. Procalcitonin level 0.15. 10/06/2023 Patient evaluated sitting up in bed. No drainage noted from [facility] overnight. P igtail catheter remains n place. Chest xray today reveals stable appearance right lung with pneumothorax vs. cavitation apex. Small effusion may be present. Repeat sputum culture final showing normal hubert. The pleural fluid is finalized showing brevibacterium species. 10/07/2023 Patient is evaluated today sitting up in bed. Legs are swollen, patient has been receiving IV fluids which will be stopped. IV lasix x 1 will be given and recommending SCDs for this. Edema is non pitting. Patient had chest xray this AM showing possible loculated pneumothorax vs. cavitary process. Subpulmonic right basilar effusion. The left lung is clear. Pigtail catheter remains in place again minimal to no drainage overnight. CT following closely. Repeat sputum showing normal hubert. Remains on IV antibiotics. Patient remains on room air. 10/08/[address] yesterday showing residual lung abscess with significant fluid content remaining. Thickening of the right pectoralis major muscle with s ome air and possibly fluid within and may relate to developing infection in this location. Pigtail catheter remains in place. Bilateral pleural effusions. Small left and moderate right pleural effusion. Sodium 139, renal function stable. 10/09/2023 Patient evaluated today sitting up in bed. Lower extremity edema is improved after a second dose of IV lasix, remains off fluids she is eating and drinking well. BENJAMÍN hose to be applied today should help with the swelling as well. Patient continues with the pigtail catheter which has had minimal drainage over the last 2 days. Patient will be going for thoracotomy and right middle lobectomy on Wednesday. Patient remains on IV vancomycin per ID and PICC line is in place. 10/10/2023 Patient evaluated today sitting up in bed. Remains on 2L of oxygen. Lower extremity edema improved. Continues on IV vancomycin. Pending repeat chest xray reports. Cardiothoracic following closely patient will go for right middle lobectomy and thoracotomy on Wednesday. 10/13/2023 Patient is seen in follow-up this morning currently nothing by mouth as she is scheduled to undergo thoracotomy with right middle lobectomy with CT surgery. Pulmonary following closely patient continues on 2 L of oxygen along with antibiotics. Plan is for going to ICU postop and will await surgical report. Patient is sitting up with multiple family members at bedside with questions and concerns were answered to the best of our ability. Patient is currently afebrile with no reports of worsening shortness of breath. Patient denies any nausea or vomiting and currently nothing by mouth for the procedure. 10/14/2023 Patient is seen in follow-up in the ICU status post right middle lobectomy with CT surgery yesterday. Patient with multiple medical consultations following continues on low-dose pressor support for hypotension. Patient also on epidural pain pump with anesthesia following has been titrating meds accordingly due to continued low blood pressure patient has been receiving large amounts of fluid showing some minimal improvement in blood pressures. Patient is alert and oriented sitting up in the chair and continued on 2 L via nasal cannula. Patient is afebrile and maintained on meropenem along with vancomycin with infectious disease following. Encouraged incentive spirometer use and awaiting follow-up labs. Patient continues with indwelling Jimenez catheter for continued strict intake and output monitoring. PT/OT therapy for evaluation. 10/15/2023 Patient is seen in follow-up today currently sitting up in the chair remains in the ICU with multiple medical consultations following. Patient continues on meropenem along with vancomycin and awaiting cultures. Patient continues with right-sided chest tubes being placed to waterseal. Patient continues on low- dose vasopressin his blood pressures are low. IV fluids being discontinued as chest x-ray shows some pleural effusions. Blood pressures are marginal and will be monitored closely in the ICU. Patient continues on 2-3 L via nasal cannula continues to report shortness of breath although no worse. Patient is having chest wall pain at the chest tube sites and pain medications being adjusted including any oral medications. Patient is afebrile and hemoglobin is stable although trending down but above 7 today. Recommend to monitor closely and transfuse of 7 or less. No reported nausea or vomiting patient tolerating diet needs encouragement with meals. 10/16/2023 Patient is in the MICU. Awake alert and oriented x 3. On 2 L oxygen via nasal cannula. Was able to ambulate in the floyd but still having exertional dyspnea. Also complains of soreness at the chest tube site. Right posterior pleural chest tube was removed today. Still having anterior chest tube draining ser osanguineous fluid.. Patient has been afebrile. Remains on antibiotics in the form of vancomycin and meropenem. No complaints of nausea or vomiting. No cough or sputum production. Pleural fluid culture showed Brevibacterium species on 10/01/2023.. Laboratory test showed WBC 5.1 hemoglobin 7.8 and platelets 185, sodium 132 potassium 3.8 chloride 99 bicarb is 28 BUN 15 and creatinine 0.48 Chest x-ray this morning showed postsurgical changes right hemithorax with [address]. No appreciable pneumothorax. Pleural parenchymal opacities throughout the right side of the chest are fairly similar. Slightly increasing patchy atelectasis or infiltrate at the left base. 10/17/2023 Patient is currently sitting in the chair. Awake alert and oriented x 3. On 2 L oxygen via nasal cannula. Right anterior chest tube in place draining serosanguineous fluid. Pain is controlled with medications. Patient has been afebrile. Chest x-ray today showed similar postsurgical changes and volume loss in the right hemithorax with slightly improving interstitial densities througho ut right lung. Underlying small right effusion. Right-sided chest tube in place. No appreciable pneumothorax. Laboratory data showed WBC 3.6 hemoglobin 7.5 and platelets 217 potassium 3.3 chloride 103 bicarb is 27 BUN 10 and creatinine 0.9 and calcium 7.6. Patient is being continued on antibiotics in the form of vancomycin and meropenem. 10/18/2023 Patient is seen in follow-up this morning continues to be in the ICU. Patient with one remaining chest tube and discussion of possible removal of the other in the next 24-48 hours. Follow-up chest x-ray ordered showing continue po stsurgical right hemothorax redemonstrated with patchy opacification is on the right middle and lower lung slightly improved with a trace of effusion with an ongoing small left effusion with atelectasis. Patient does have incentive spirometer at the bedside and reports has been using very frequently. Patient continues on antibiotics in the form of meropenem and vancomycin with infectious disease following an cultures thus far have been negative. Hemoglobin is stable at 7.8 today and BMP within normal limits. Magnesium slightly low and replacement protocol ordered. Will follow up on repeat labs. 10/19/2023 Patient is seen in follow-up has been transitioned and downgraded from the ICU on 3 south now continues with chest tube and chest x-ray today shows developing left lower lobe infiltrate with small effusion may be present along with a right lobectomy postsurgical changes that remain. Patient to continue with chest tube per CT surgery. Patient having continued shortness of breath maintained on 4 L via nasal cannula and having some bilateral lower extremity swelling and was giv en a dose of IV Lasix today. Sodium is 138 with a potassium of 3.5, BUN is 7 and creatinine is 0.4. Magnesium is 1.6 and will replace per protocol. Patient also continues on breathing inhalational treatments as well as Mucomyst and will continue. Patient has been instructed and encouraged to continue with incentive spirometer at least 10 times every hour while awake. Patient is currently afeb rile and report shortness of breath with chest wall discomfort although denies chest pain or palpitations. Patient is extremely lethargic today and reports has been up and walking and resting frequently. Patient tolerating oral intake with no reported nausea or vomiting. Review of Systems Constitutional: Denied any fatigue denied any fever. Cardio vascular: denied any chest pain, palpitations, reports chest wall pain with one chest tube remaining Gastrointestinal: denied any nausea, vomiting, diarrhea Pulmonary: Reports shortness of breath that Worsens with exertion Neurologic denied any new focal deficits All medications were reviewed PHYSICAL EXAMINATION: GENERAL: The patient is alert and oriented x3, . Well developed, well nourished. Obese HEENT: Pupils are round and equally reacting to light. EOMI. No scleral icterus. No conjunctival pallor. Normocephalic, atraumatic. No pharyngeal erythema. No thyromegaly. CARDIOVASCULAR: S1 and S2 muffled PULMONARY: Diminished breath sounds bilaterally and more so on the right with Crackles in the right lung base. Right thoracotomy tube in place. With serosanguineous output noted ABDOMEN: Soft, nontender, nondistended, normoactive bowel sounds. No palpable organomegaly. MUSCULOSKELETAL: No joint swelling or deformity. EXTREMITIES: No cyanosis, clubbing +1 peripheral edema/ankle edema non pitting. NEUROLOGICAL: Gross neurological examination did not reveal any focal deficits. Diffusely weak SKIN: No rashes. Assessment: Pneumonia with possible lung abscess, status post bronchoscopy, status post right middle lobe lobectomy on 10/13/2023 Rule out Cavitary lung lesion/pulmonary abscess as well as possible second ovary abscess or cavity necrosis Non-small cell lung cancer status post right upper lobectomy, done on 08/08. 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 The bronchial washings are negative for malignancy and sputum showing gram positive. Repeat sputum culture showing normal hubert. Infectious disease is following Patient is status post right middle lobe ectomy and continues with 1 right-sided chest tubes showing serosanguineous fluid. Repeat chest x-ray ordered showing some pleural effusions and IV fluids has been discontinued Patient off pressor support. Oral medications being added to the pain regimen Continue BENJAMÍN hose and to elevate lower extremities while sitting. Continue to encourage incentive spirometer 10 x an hour while awake. Patient is currently maintained on 4 L via nasal cannula recommend wean FiO2 as tolerated. Patient requiring more oxygen today reporting increasing shortness of breath and was given a dose of IV Lasix Increase activity level. Will need extensive PT/OT therapy postoperatively once cleared by CT surgery area patient has been up and walking the halls at least 2- 3 times per day Repeat labs reveal magnesium 1.6 and being replaced per protocol. We'll follow up on repeat labs. A.m. labs pending Due to multiple complex medical issues, prognosis is guarded Per nursing staff, No plans for removal of the chest tube at this time per CT recommendations. Repeat chest x-ray ordered tomorrow The impression and plan of care has been dictated by Pamela Bryant, Nurse Practitioner as directed. Dr. Lavern MD I have performed a history and examination and MDM of this patient, discussed the same with the dictator, and agree with the dictator's assessment and plan as written ,documented as a scribe. Based on total visit time, I have performed more than 50% of the visit. Objective - Vital Signs Vital signs: Vital Signs Temp 98.2 F 10/19/23 11:53 Pulse 106 H 10/19/23 12:04 Resp 20 10/19/23 11:53 BP 147/83 10/19/23 11:53 Pulse Ox 98 10/19/23 11:53 FiO2 35 10/19/23 11:24 Intake & Output 10/18/23 10/19/23 10/19/23 18:59 06:59 18:59 Intake Total 590 225 Output Total 1650 20 Balance -1060 -20 225 Weight 83.5 kg Intake: IV 350 Meropenem 1 gm In Sodium 100 Chloride 0.9% 100 ml @ 33 .3 mls/hr IVPB Q8HR [facility]ARIAN Rx#:[id number] Vancomycin 1,250 mg In 250 Sodium Chloride 0.9% 250 ml @ 125 mls/hr IVPB Q12H KARINA Rx#:[id number] Oral 240 225 Output: Chest Tube Drainage 50 20 R. Chest Tube - A ( 50 20 Anterior) Urine 1600 Other: Voiding Method Toilet Toilet Toilet Bedside Commode # Voids 1 2 1 ABP, PAP, CO, CI - Last Documented Arterial Blood Pressure 81/41 - Labs CBC & Chem 7: 10/19/23 09:05 10/19/23 09:05 Labs: Abnormal Lab Results - Last 24 Hours (Table) 10/19/23 10/19/23 10/19/23 Range/Units 09:05 09:05 09:05 RBC 3.01 L (3.80-5.40) m/uL Hgb 8.8 L (11.4-16.0) gm/dL Hct 28.2 L (34.0-46.0) % RDW 16.4 H (11.5-15.5) % Creatinine 0.40 L (0.52-1.04) mg/dL Calcium 8.1 L (8.4-10.2) mg/dL Phosphorus 4.6 H (2.5-4.5) mg/dL Microbiology - Last 24 Hours (Table) 10/01/23 08:40 Acid Fast Bacilli Smear - Preliminary Bronchoalviolar Lavage - Right Acid Fast Bacilli Culture - Preliminary
--- NOTE | 2023-10-19 15:37 | P.PN ---
Subjective Progress Note Date: 10/18/23 Principal diagnosis: Reason for follow-up is pneumonia/lung abscess this is a telehealth visit Patient is a 57-year-old female with a past medical history significant for COPD hypertension lipidemia osteomyelitis with a recent diagnosis of right upper lobe lung cancer pathology non-small cell with neuroendocrine differentiation the patient is status post robotic assisted right upper lobectomy on 08/19/2023, now presented to hospital with persistent cough shortness of breath did have a low-grade fever abnormal CT suspicious for possible pneumonia/lung abscess, the patient is status post bronchoscopy by pulmonary and patient also have a pigtail catheter placed in by IR, subsequently Patient is status post redo thoracotomy with lysis of adhesion and right middle lobectomy completed on 10/13/2023 On today's evaluation that is 10/18/2023 the patient denies any fever or chills, the patient is breathing comfortably on 2 L nasal cannula oxygen, the patient right-sided chest pain controlled with pain medications ,The Pt cough has decreased in intensity and dry in nature, patient denies abdominal pain and no nausea vomiting diarrhea Patient white count is 3.8, creatinine 0.46, pleural fluid culture growing Brevibacterium species, BAL with dylan Objective - Vital Signs Vital signs: Vital Signs Temp 97.8 F 10/18/23 08:00 Pulse 107 H 10/18/23 11:00 Resp 21 10/18/23 11:00 BP 137/66 10/18/23 11:00 Pulse Ox 96 10/18/23 11:00 FiO2 35 10/16/23 19:00 Intake & Output 10/17/23 10/18/23 10/18/23 18:59 06:59 18:59 Intake Total 1587 1220 590 Output Total 1600 1140 1100 Balance -13 80 -510 Weight 80.7 kg 84 kg Intake: IV 750 420 350 Invasive Line 1 40 30 Invasive Line 9 60 40 Meropenem 1 gm In Sodium 200 100 100 Chloride 0.9% 100 ml @ 33 .3 mls/hr IVPB Q8HR [facility]INA Rx#:[id number] Sodium Chloride 0.9% 1, 200 000 ml @ 50 mls/hr IV . Q20H [facility]INA Rx#:[id number] Vancomycin 1,250 mg In 250 250 250 Sodium Chloride 0.9% 250 ml @ 125 mls/hr IVPB Q12H [facility]INA Rx#:[id number] Oral 837 800 240 Output: Chest Tube Drainage 0 140 50 R. Chest Tube - A ( 0 140 50 Anterior) Urine 1600 1000 1050 Other: Voiding Method Bedside Commode Bedside Commode Bedside Commode # Voids 1 1 # Bowel Movements 0 ABP, PAP, CO, CI - Last Documented Arterial Blood Pressure 81/41 - Exam GENERAL DESCRIPTION: A middle-age female up in bed in no distress RESPIRATORY SYSTEM: Unlabored breathing , decreased breath sounds at the base HEART: S1 S2 regular rate and rhythm , ABDOMEN: Soft , no tenderness EXTREMITIES: No edema feet - Labs CBC & Chem 7: 10/19/23 09:05 10/19/23 09:05 Labs: Abnormal Lab Results - Last 24 Hours (Table) 10/18/23 10/18/23 Range/Units 03:47 03:47 RBC 2.65 L (3.80-5.40) m/uL Hgb 7.8 L (11.4-16.0) gm/dL Hct 25.1 L (34.0-46.0) % MCHC 30.9 L (31.0-37.0) g/dL RDW 16.5 H (11.5-15.5) % Lymphocytes # 0.8 L (1.0-4.8) k/uL Sodium 136 L (137-145) mmol/L Creatinine 0.46 L (0.52-1.04) mg/dL Calcium 7.7 L (8.4-10.2) mg/dL Microbiology - Last 24 Hours (Table) 10/14/23 16:56 Blood Culture - Preliminary Blood Assessment and Plan (1) Pneumonia Current Visit: Yes Status: Acute Code(s): J18.9 - PNEUMONIA, UNSPECIFIED ORG ANISM SNOMED Code(s): 141260404 (2) Allergy to multiple antibiotics Current Visit: Yes Status: Acute Code(s): Z88.1 - ALLERGY STATUS TO OTHER ANTIBIOTIC AGENTS SNOMED Code(s): 974097709 (3) Lung abscess Current Visit: Yes Status: Acute Code(s): J85.2 - ABSCESS OF LUNG WITHOUT PNEUMONIA SNOMED Code(s): 84629785 Plan: 1patient presented to hospital with sepsis in this patient who did have a fever tachycardia hypoxemia elevated white count source is unlikely pneumonia with question of possible abscess/empyema in this patient with recent surgery 2patient with the penicillin and cephalosporin allergy that would limit the number of antibiotics safe to use. 3-patient is status post bronchoscopy lavage and also have placement of a pigtail catheter by IR , pleural fluid cultures grew Brevibacterium species 4patient subsequently status post right middle lobe lobectomy on 10/13/2023 and post op noticed to have slight worsening of the white count and hypotension , concerning for possible sepsis related to it, patient did have a repeat culture which has been negative so far 5- Patient is slowly clinically improving and will continue with meropenem and vancomycin and monitor clinical course closely Dictation was produced using [employer] dictation software. please excuse any grammatical, word or spelling errors.
--- NOTE | 2023-10-19 15:39 | P.PN ---
Subjective Progress Note Date: 10/19/23 Principal diagnosis: Right lung abscess/pneumonia I am seeing this patient in consultation today 09/30/2023 for suspected pulmonary abscess. 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 She did have a complicated postoperative hospital stay with a persistent right sided pneumothorax and opacification of the right midlung area. She has been closely followed up on an outpatient basis. She does follow Dr. Davey in the pulmonary office, and also had a office visit with Dr. Espino from cardiothoracic surgery on 09/17. She states that she has "not really been 100%" since surgery. More recently she has had symptoms of exertional shortness of breath, right-sided back pain, productive cough with yellow/green sputum sometimes pink tinged, and subjective fevers. She has received courses of Levaquin and doxycycline outpatient. A CT of the chest done 2 days ago demonstrated focal severe consolidation of the right upper lobe measuring 7.7 cm with what appears to be a fluid density concerning for pulmonary abscess. There is an adjacent residual loculated small anterior upper lung pneumothorax measu ring 4.5 cm. There is a possible secondary pulmonary abscess or cavitary necrosis with air-fluid level anterior right mid lung measuring 9.2 x 8.2 x 7.4 cm. For this reason, she was directed to the emergency room yesterday. Patient was given doses of Levaquin and vancomycin in the emergency room. She does have a penicillin ALLERGY. Bronchoscopy with BAL done on 08/23/2023 did not identify significant bacterial growth. CBC shows a WBC count of 16, hemoglobin 9.6, hematocrit 30.4, platelets 694. BMP on arrival shows sodium 133, potassium 3.2, chloride 83, serum bicarbonate 34, BUN 12, creatinine 0.5, glucose 112. Normal saline infusing at 130 ML's per hour. Lactic acid level I.9. Patient is currently lying in bed, on 2 L/m nasal cannula, in no acute distress. SPO2 97%. She is slightly tachycardic with a heart rate of 116 bpm. She was febrile with a T-max of 100F. Blood cultures pending. Hemodynamically stable. Patient was seen and examined today on 10/01/23, seems to be doing about the same, continues to have cough and shortness of breath. Cough is productive with thick yellow phlegm. Underwent a bronchoscopy today , please refer to the full operative report. Patient was found to have significant area and secretions coming out of the right middle lobe, mucosa in the right middle lobe was noted to be thick LA edematous, and has quite a bit of abnormal appearance, multiple biopsies from the right lobe bronchus were done, and lavage of the right middle lobe/medial segment was also performed. In the meantime the patient remains on antibiotics, and these will likely be adjusted based on the final culture from the BAL. Patient continues to have leukocytosis with WBC count of 17.9 hemoglobin 8.9, basic metabolic profile is normal Reevaluated today on 10/02/23, patient was seen by interventional radiology yesterday, and she underwent placement of a pigtail catheter into her right lung. Significant purulent drainage is noted into the pleural VAC, chest x-ray is showing improvement, clinically the patient is feeling better, remains on antibiotics, cultures are pending however the Gram stain is showing gram- positive cocci and that is from the pleural effusion fluid. BAL Gram stain is showing moderate PMNs and mixed organisms including gram-negative bacilli and gram-positive cocci. Patient is tolerating antibiotics well, and apparently she had one of placed treatment into the lung. Abscess. Patient refusing to have any more. WBC count is down today to 6.2 from 17.9 hemoglobin is 7.9, basic metabolic profile is normal. Renal profile is normal patient remains in the meantime on vancomycin and on aztreonam. On 10/15/2023, patient is awake and alert and sitting up on a chair. The patient is comfortable. She is complaining of pain along the right chest. Epidural fentanyl was discontinued. The patient is taken oxycodone 10 mg every 4 hours on a when necessary basis. She is also on Toradol. Antibiotic coverage is with meropenem and vancomycin. Meanwhile, she is on 2 L of oxygen by nasal cannula. She was having some issues with a low CVP and hypotension yesterday. Jesu-Synephrine was weaned off and discontinued. She was given IV fluids. Currently she is on a low-dose vasopressin at 0.02 units per minutes. The patient otherwise is producing adequate amount of urine output. She is awake and alert. The right-sided chest tubes are still in place. The patient has an apical chest tube is still leaking and the output from the chest tube is in order of 100 mL over the past 8 hours. No evidence of any air leak on the pos terior chest tube which is running approximately 70 mL's over the past 8 hours. The patient had a follow-up chest x-ray today. No evidence of any pneumothorax. Chest tubes are in adequate location. Patient is set up postthoracotomy. The patient also developed a small right posterior atelectasis/pleural effusion. Left lung remains clear. On 10/16/2023, the patient is still having some soreness across her surgical one-sided. Otherwise, she is stable on 3 L of oxygen by nasal cannula. Chest x-ray shows no interval change. The patient has a apical and the posterior chest tube. No air leak and the posterior chest tube. Output is minimal at this point in time. The apical chest tube is showing intermittent air leak. She is currently on waterseal. She is using the senna spirometer. She is on no pressors. IV fluids are currently at KVO. Vasopressin has been discontinued since this morning at around 7:30 AM. Her white cell count is improved and currently is down to 5.1 with a hemoglobin of 7.8. Sodium is at 132, bicarb is at 28 with a BUN of 15 and a creatinine of 0.4. She remains on IV vancomycin. She is also on IV cefepime. Chest x-ray shows no evidence of any pneumothorax. She remains on bronchodilators. No other interval change as yesterday. She is going to ambulate. 10/17/2023, the patient is on oxygen at 2 L. The posterior chest tube was removed yesterday. The patient has right anterior apical chest tube in place. There is persistent air leak still. The patient is on waterseal. The chest x- ray shows adequate expansion of the right lung. No evidence of any pneumothorax. A small amount of pleural effusion is present on the left. She is calm and comfortable and she is also ambulating with help of the nursing staff. Electrodes are all stable, BUN is at 10 with a creatinine of 0.5. The white cell cause of 3.6 with a hemoglobin of 7.5. Remains on the same antibiotic coverage. Remains on bronchodilators. She is currently on Merrem and vancomycin. Patient was reevaluated today on 10/18/2023, remains in the ICU, patient is on 2 L nasal cannula, continues to have significant air leak, but the patient is not in any distress, cultures from the fluid had shown Brrevbacterium species, should respond to vancomycin which the patient is presently on along with the Merrem. Patient received a full course of treatment since admission, and i nfectious disease will likely stop antibiotics today. Chest x-ray continues to show adequate expansion of the right lung, and in no evidence of pneumothorax. WBC count today is 3.8 hemoglobin 7.8 remains low patient had received a total of 7 units of packed RBCs since admission, basic metabolic profile is normal, renal profile is normal, patient is hemodynamically stable, and hopefully she could be transferred out of the ICU to a monitor bed on selective today. Patient was reevaluated today on 10/19/2023, she is now postoperative day #6, Redo Thoracotomy, Extensive lysis of adhesions, Right middle lobectomy, Cryo- ablation of intercostal nerves 3-7. Patient is complaining of significant a mount of chest wall pain, Complaining of shortness of breath, O2 saturation is 98% on 4 L nasal cannula, chest x-ray is showing worsening atelectasis in the upper medial portion of the right lung. Obviously she is developing atelectasis in the remaining right lower lobe which is now expanded to fill the space of the right upper lobe and right middle lobe. Continues to have significant air leak, discuss with thoracic surgery that we continue the same for now, and consider bronchoscopy if the patient continues to do poorly. And will recommend follow-up chest x-ray in the next 24 hours. WBC count is 4.3 hemoglobin 8.8 basic metabolic profile is normal renal profile is normal it patient is receiving bronchodilators and Mucomyst to help loosen up her secretions and hopefully improve the atelectatic portion noted in the right lung Objective - Vital Signs Vital signs: Vital Signs Temp 98.2 F 10/19/23 11:53 Pulse 104 H 10/19/23 15:20 Resp 20 10/19/23 11:53 BP 147/83 10/19/23 11:53 Pulse Ox 98 10/19/23 11:53 FiO2 35 10/19/23 11:24 Intake & Output 10/18/23 10/19/2323 18:59 06:59 18:59 Intake Total 590 225 Output Total 1650 20 Balance -1060 -20 225 Weight 83.5 kg Intake: IV 350 Meropenem 1 gm In Sodium 100 Chloride 0.9% 100 ml @ 33 .3 mls/hr IVPB Q8HR [facility] Rx#:[id number] Vancomycin 1,250 mg In 250 Sodium Chloride 0.9% 250 ml @ 125 mls/hr IVPB Q12H [facility] Rx#:[id number] Oral 240 225 Output: Chest Tube Drainage 50 20 R. Chest Tube - A ( 50 20 Anterior) Urine 1600 Other: Voiding Method Toilet Toilet Toilet Bedside Commode # Voids 1 2 1 ABP, PAP, CO, CI - Last Documented Arterial Blood Pressure 81/41 - Exam Physical Exam: Revealed a 57-year-old female in no distress or L nasal cannula seems fairly comfortable. Head: Atraumatic, normocephalic. HEENT:[Neck is supple.] [No neck masses.] [No thyromegaly.] [No JVD.] Chest: [Diminished breath sounds on the right side, right-sided chest tube is noted with significant air leak Cardiac Exam: [Normal S1 and S2, no S3 gallop, no murmur.] Abdomen: [Soft, nontender, no megaly, no rebound, no guarding, normal bowel sounds.] Extremities: [No clubbing, no edema, no cyanosis.] Neurological Exam: [No focal neurologic deficit.] Alert oriented 3 Psychiatric: Normal mood affect and normal mental status examination - Labs CBC & Chem 7: 10/19/23 09:05 10/19/23 09:05 Labs: Abnormal Lab Results - Last 24 Hours (Table) 10/19/23 10/19/23 10/19/23 Range/Units 09:05 09:05 09:05 RBC 3.01 L (3.80-5.40) m/uL Hgb 8.8 L (11.4-16.0) gm/dL Hct 28.2 L (34.0-46.0) % RDW 16.4 H (11.5-15.5) % Creatinine 0.40 L (0.52-1.04) mg/dL Calcium 8.1 L (8.4-10.2) mg/dL Phosphorus 4.6 H (2.5-4.5) mg/dL Microbiology - Last 24 Hours (Table) 10/01/23 08:40 Acid Fast Bacilli Smear - Preliminary Bronchoalviolar Lavage - Right Acid Fast Bacilli Culture - Preliminary Assessment and Plan Assessment: Impression: Thoracotomy with extensive lysis of adhesions and right middle lobectomy. The patient is postop day #6, surgery was on 10/13, continues to have right-sided chest tube in place, continues to have significant air leak. Not to mention the patient did receive a total of 7 units of packed RBCs and 2 units of fresh was a plasma with 1 units of platelets since admission. No clear-cut evidence of obvious blood loss. Non-small cell lung cancer status post right upper lobectomy, done on . Two regional hilar lymph nodes were positive for metastasis. No other lymph nodes involved. Post-operative hospital stay was complicated by persistent residual right apical pneumothorax. During this hospitalization, she did have a follow-up bronchoscopy with BAL done on 08/31/2023 Likely secondary lung abscess, status post pigtail catheter placement and drainage. Fluid was positive for brevibacterium species, treated with vancomycin Normocytic normochromic anemia, without any obvious blood loss Chronic obstructive pulmonary disease, with a FEV1 53% of predicted, stable. Former tobacco dependence Recommendation: Continue oxygen and titrate accordingly Continue bronchodilators, agree with Mucomyst Continue incentive spirometry Continue chest tube in place Continue pain control management with oxycodone and Toradol Infectious disease has discontinued antibiotics as she received a full course of treatment Repeat chest x-ray in a.m., If no improvement or worsening of chest x-ray could consider bronchoscopy Will discuss and already discussed with cardiothoracic surgery on the case We will continue to follow Time with Patient: Less than 30
--- NOTE | 2023-10-19 15:41 | P.PN ---
Subjective Progress Note Date: 10/19/23 Principal diagnosis: Reason for follow-up is pneumonia/lung abscess this is a telehealth visit Patient is a 57-year-old female with a past medical history significant for COPD hypertension lipidemia osteomyelitis with a recent diagnosis of right upper lobe lung cancer pathology non-small cell with neuroendocrine differentiation the patient is status post robotic assisted right upper lobectomy on 08/19/2023, now presented to hospital with persistent cough shortness of breath did have a low-grade fever abnormal CT suspicious for possible pneumonia/lung abscess, the patient is status post bronchoscopy by pulmonary and patient also have a pigtail catheter placed in by IR, subsequently Patient is status post redo thoracotomy with lysis of adhesion and right middle lobectomy completed on 10/13/2023 On today's evaluation that is 10/19/2023 the patient remains to be afebrile, the patient is breathing comfortably on 2 L nasal cannula oxygen, the patient right-sided chest pain has decreased in intensity ,The patient cough has decreased in intensity however mentioning bleeding up some sputum but no hemoptysis, patient denies abdominal pain and no nausea vomiting and no diarrhea has been reported Patient white count is 4.3, creatinine 0.40, pleural fluid culture growing Brevibacterium species, BAL with dylan Objective - Vital Signs Vital signs: Vital Signs Temp 98.2 F 10/19/23 11:53 Pulse 106 H 10/19/23 12:04 Resp 20 10/19/23 11:53 BP 147/83 10/19/23 11:53 Pulse Ox 98 10/19/23 11:53 FiO2 35 10/19/23 11:24 Intake & Output 10/18/23 10/19/23 10/19/23 18:59 06:59 18:59 Intake Total 590 225 Output Total 1650 20 Balance -1060 -20 225 Weight 83.5 kg Intake: IV 350 Meropenem 1 gm In Sodium 100 Chloride 0.9% 100 ml @ 33 .3 mls/hr IVPB Q8HR [facility] Rx#:[id number] Vancomycin 1,250 mg In 250 Sodium Chloride 0.9% 250 ml @ 125 mls/hr IVPB Q12H [facility] Rx#:[id number] Oral 240 225 Output: Chest Tube Drainage 50 20 R. Chest Tube - A ( 50 20 Anterior) Urine 1600 Other: Voiding Method Toilet Toilet Bedside Commode # Voids 1 2 1 ABP, PAP, CO, CI - Last Documented Arterial Blood Pressure 81/41 - Exam GENERAL DESCRIPTION: A middle-age female up in bed in no distress RESPIRATORY SYSTEM: Unlabored breathing , decreased breath sounds at the base HEART: S1 S2 regular rate and rhythm , ABDOMEN: Soft , no tenderness EXTREMITIES: No edema feet - Labs CBC & Chem 7: 10/19/23 09:05 10/19/23 09:05 Labs: Abnormal Lab Results - Last 24 Hours (Table) 10/19/23 10/19/23 10/19/23 Range/Units 09:05 09:05 09:05 RBC 3.01 L (3.80-5.40) m/uL Hgb 8.8 L (11.4-16.0) gm/dL Hct 28.2 L (34.0-46.0) % RDW 16.4 H (11.5-15.5) % Creatinine 0.40 L (0.52-1.04) mg/dL Calcium 8.1 L (8.4-10.2) mg/dL Phosphorus 4.6 H (2.5-4.5) mg/dL Microbiology - Last 24 Hours (Table) 10/01/23 08:40 Acid Fast Bacilli Smear - Preliminary Bronchoalviolar Lavage - Right Acid Fast Bacilli Culture - Preliminary Assessment and Plan (1) Pneumonia Current Visit: Yes Status: Acute Code(s): J18.9 - PNEUMONIA, UNSPECIFIED ORGANISM SNOMED Code(s): 418032377 (2) Allergy to multiple antibiotics Current Visit: Yes Status: Acute Code(s): Z88.1 - ALLERGY STATUS TO OTHER ANTIBIOTIC AGENTS SNOMED Code(s): 160844562 (3) Lung abscess Current Visit: Yes Status: Acute Code(s): J85.2 - ABSCESS OF LUNG WITHOUT PNEUMONIA SNOMED Code(s): 67615434 Plan: 1patient presented to hospital with sepsis in this patient who did have a fever tachycardia hypoxemia elevated white count source is unlikely pneumonia with question of possible abscess/empyema in this patient with recent surgery 2patient with the penicillin and cephalosporin allergy that would limit the number of antibiotics safe to use. 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 please excuse any grammatical, word or spelling errors.
[2023-10-19] MEDS ORDERED: POTASSIUM CHLORIDE ER 10 MEQ TAB.ER.PRT PO ONE (16:00)
[2023-10-19] MEDS ORDERED: SYMBICORT 160-4.5 MCG INHALER INHALATION SCH (20:00)
[2023-10-19] MEDS: guaiFENesin 600 MG TABLET.ER PO SCH (21:23)
[2023-10-19] MEDS: BUDESONIDE 0.5 MG/2 ML NEBU INHALATION SCH (21:38)
[2023-10-20] MEDS: CYCLOBENZAPRINE 10 MG TAB PO SCH (03:31)
[2023-10-20] MEDS: KETOROLAC 15 MG/ML 1 ML VIAL IVP SCH ×4 (06:34→23:05)
[2023-10-20] MEDS: PANTOPRAZOLE 40 MG TABLET PO SCH (06:34)
--- NOTE | 2023-10-20 07:08 | XR ---
EXAMINATION TYPE: XR chest 2V DATE OF EXAM: 10/20/2023 COMPARISON: 10/19/2023 INDICATION: Status post right middle lobectomy TECHNIQUE: Frontal and lateral views of the chest are obtained. FINDINGS: The heart size is normal. The pulmonary vasculature is normal. The lateral projection there is lucency over the superior lung f ield may be a small pneumothorax not evident on the frontal projection Previously some diffuse peripheral pleural fluid on the right thickening along the margins. Right-nicole ed chest tube remains present. No pneumothorax is evident. PICC line enters on the left with the tip in the distal superior cava region. IMPRESSION: 1. Small developing right pleural effusion surrounding the lung. 2. On the lateral projection there is suggestion of apical pneumothorax. Continued follow-up is recom mended
[2023-10-20] MEDS: IPRATROPIUM-ALBUTEROL 3 ML NEB INHALATION SCH ×4 (08:33→21:19)
[2023-10-20] MEDS: LIDOCAINE 4% PATCH TOPICAL SCH (08:34)
[2023-10-20] MEDS: guaiFENesin 600 MG TABLET.ER PO SCH ×2 (08:34→20:15)
[2023-10-20] MEDS: BUDESONIDE 0.5 MG/2 ML NEBU INHALATION SCH ×2 (08:34→21:19)
[2023-10-20] MEDS: oxyCODONE ER 10 MG TAB.ER.12H PO SCH ×2 (08:34→20:56)
[2023-10-20] MEDS: ACETYLCYSTEINE 800 MG/4 ML VIAL INHALATION SCH ×3 (08:34→21:18)
[2023-10-20] MEDS: HEPARIN SODIUM,PORCINE 5,000 UNIT/ML 1 ML VIAL SQ SCH ×3 (08:34→23:05)
[2023-10-20] MEDS: SERTRALINE 50 MG TAB PO SCH (08:34)
[2023-10-20] MEDS: FORMOTEROL FUMARATE 20 MCG/2 ML NEBU INHALATION SCH ×2 (08:34→21:19)
[2023-10-20 09:19] LABS: Anisocytosis Slight; Basophils % (A) 0 %; Eosinophils # (A) 0.2 k/uL (0-0.7); Eosinophils % (A) 6 %; HCT 26.4 % (34.0-46.0); HGB 8.1 gm/dL (11.4-16.0); Hypochromasia Marked; Lymphocytes # (A) 0.9 k/uL (1.0-4.8); Lymphocytes % (A) 21 %; MCH 29.1 pg (25.0-35.0); MCHC 30.9 g/dL (31.0-37.0); MCV 94.3 fL (80.0-100.0); Mean Platelet Volume 7.7; Monocytes # (A) 0.4 k/uL (0-1.0); Monocytes % (A) 9 %; Neutrophils # (A) 2.5 k/uL (1.3-7.7); Neutrophils % (A) 63 %; Platelet Count 324 k/uL (150-450); RDW 16.2 % (11.5-15.5)
[2023-10-20 09:49] LABS: African American GFR (CKD) >90 (>60 ml/min/1.73 sqM); Anion Gap 5 mmol/L; Blood Urea Nitrogen 6 mg/dL (7-17); Carbon Dioxide 36 mmol/L (22-30); Chloride 97 mmol/L (98-107); Glucose 81 mg/dL (74-99); Non-African American GFR(CKD) >90 (>60 ml/min/1.73 sqM); Potassium 3.7 mmol/L (3.5-5.1); Sodium 138 mmol/L (137-145)
--- NOTE | 2023-10-20 13:58 | P.PN ---
Subjective Progress Note Date: 10/20/23 Principal diagnosis: Necrosis and abscess of right middle lobe, pneumonia with possible lung abscess, small right pleural effusion, residual loculated small anterior upper lung pne umothorax, leukocytosis, normocytic normochromic anemia. History of non-small cell carcinoma with neuroendocrine differentiation, consistent with large cell neuroendocrine carcinoma status post robotic-assisted right upper lobectomy on 08/19/2023 and subsequent bronchoscopy with placement of right thoracostomy tube, chronic tobacco dependence with recent cessation, COPD, asthma, hyperlipidemia, GERD, diverticulitis status post bowel resection, osteoarthritis POD #7 redo thoracotomy, extensive lysis of adhesions, right middle lobectomy, cryoablation of intercostal nerves 3-7 The patient was seen and examined sitting up in a recliner on the cardiac stepdown unit with Dr. Espino. Patient states pain is more controlled than previous, does appear to be a bit sleepy during conversation although she is mentating normally. Currently on 4 L nasal cannula, only able to achieve 750 mL on her incentive spirometry. Right pleural chest tube remains present to waterseal, minimal air leak present with forceful coughing. was updated extensively yesterday, all questions were answered. Again updated today as well as daughter who was present at the bedside and another daughter who was on the phone. All questions have been answered to the best of my ability. Patient has been up ambulating in the hallway with assistance. Chest x-ray reviewed, pulmonology will hold off on bronchoscopy for now. No other new concerns. Objective - Vital Signs Vital signs: Vital Signs Temp 98.2 F 10/20/23 08:00 Pulse 112 H 10/20/23 12:10 Resp 22 10/20/23 08:00 BP 128/77 10/20/23 08:00 Pulse Ox 94 L 10/20/23 08:39 FiO2 35 10/19/23 11:24 Intake & Output 10/19/23 10/20/23 10/20/23 18:59 06:59 18:59 Intake Total 450 240 Output Total 130 60 0 Balance 320 180 0 Weight 81.8 kg Intake: Oral 450 240 Output: Chest Tube Drainage 130 60 0 R. Chest Tube - A ( 130 60 0 Anterior) Other: Voiding Method Toilet Toilet # Voids 3 1 ABP, PAP, CO, CI - Last Documented Arterial Blood Pressure 81/41 - Exam CONSTITUTIONAL: Appears comfortable, cooperative, no acute distress RESPIRATORY: Lungs sounds diminished bilaterally. Respirations even, nonlabored. Currently on 4 LPM NC with oxygen saturation 94%. Able to achieve 750 mL on incentive spirometry. Strong cough. CARDIOVASCULAR: S1, S2 present. Regular rate and rhythm, sinus rhythm on telemetry. Palpable peripheral pulses bilaterally. No edema present. No calf pain or tenderness noted GASTROINTESTINAL: Abdomen soft, nontender, nondistended. Active bowel sounds present 4 quadrants. Tolerating diet GENITOURINARY: Continues to void INTEGUMENTARY: Skin is warm and dry. Thoracic incisions well healed NEUROLOGIC: Cranial nerves II through XII intact MUSKULOSKELETAL: Able to move all extremities, strength equal bilaterally, gait normal PSYCHIATRIC: Alert and oriented to person place and time, appropriate affect, intact judgment and insight INVASIVE TUBES: Right pleural chest tube present to waterseal, minimal air leak present with forceful coughing, 200 mL serous drainage in the last 24 hours - Allied health notes Allied health notes reviewed: nursing - Labs CBC & Chem 7: 10/20/23 08:04 10/20/23 08:04 Labs: Abnormal Lab Results - Last 24 Hours (Table) 10/20/23 10/20/23 Range/Units 08:04 08:04 RBC 2.80 L (3.80-5.40) m/uL Hgb 8.1 L (11.4-16.0) gm/dL Hct 26.4 L (34.0-46.0) % MCHC 30.9 L (31.0-37.0) g/dL RDW 16.2 H (11.5-15.5) % Lymphocytes # 0.9 L (1.0-4.8) k/uL Chloride 97 L (98-107) mmol/L Carbon Dioxide 36 H (22-30) mmol/L BUN 6 L (7-17) mg/dL Creatinine 0.40 L (0.52-1.04) mg/dL Calcium 8.0 L (8.4-10.2) mg/dL Microbiology - Last 24 Hours (Table) 10/14/23 16:56 Blood Culture - Final Blood - Imaging and Cardiology Chest x-ray: report reviewed, image reviewed Assessment and Plan Assessment: Pneumonia with possible lung abscess, status post bronchoscopy and right sided pigtail catheter placement, status post right middle lobectomy Small right pleural effusion, residual loculated small anterior upper lung pneumothorax Leukocytosis, secondary to above Normocytic normochromic anemia Non-small cell carcinoma with neuroendocrine differentiation, consistent with large cell neuroendocrine carcinoma status post robotic-assisted right upper lobectomy on 08/19/2023 and subsequent bronchoscopy with placement of right thoracostomy tube Chronic tobacco dependence with recent cessation COPD, FEV1 87%, DLCO 55% Asthma Hyperlipidemia GERD Diverticulitis status post bowel resection Osteoarthritis Plan: Continue right pleural chest tube to waterseal, monitor for air leak resolution Wean O2 as tolerated. Encourage incentive spirometry 10 times every hour while awake updated at the bedside Will monitor daily labs, CXR GI/DVT prophylaxis Increase activity as tolerated, out of bed for all meals Pain control per current medication regimen Reinforced continued smoking cessation Bronchodilator per pot lining supervisor Medical management of other comorbidities per internal medicine, pulmonology, ID More recommendations to follow based on patient's clinical course
--- NOTE | 2023-10-20 14:20 | P.PN ---
Subjective Progress Note Date: 10/20/23 The patient is seen today 10/20/2023 in follow-up on the regular medical floor. She is postoperative #7 of a redo thoracotomy with extensive lysis of adhesions, right middle lobectomy and cryoablation of the intercostal nerves III through VII. She is sitting up in a chair. Awake and alert in no acute distress. Maintaining good O2 saturations in the 90s on 3 L/m per nasal cannula. Afebrile. She continues with a right-sided chest tube in place to pleural VAC and water seal, positive leak with forceful cough. Chest x-ray shows possible developing right pleural effusion and atelectasis. No significant worsening. No plans for bronchoscopy today. She is continued on DuoNeb inhalations, Mucomyst inhalations, Pulmicort and Perforomist inhalations, Mucinex. Heparin for DVT prophylaxis. White count 4.0. Hemoglobin 8.1. Platelets 324. Sodium 138. Potassium 3.7. Bicarb 36. BUN 6. Creatinine 0.40. Objective - Vital Signs Vital signs: Vital Signs Temp 98.1 F 10/20/23 12:50 Pulse 114 H 10/20/23 12:50 Resp 22 10/20/23 12:50 BP 130/77 10/20/23 12:50 Pulse Ox 92 L 10/20/23 12:50 FiO2 35 10/19/23 11:24 Intake & Output 10/19/23 10/20/23 10/20/23 18:59 06:59 18:59 Intake Total 450 240 Output Total 130 60 0 Balance 320 180 0 Weight 81.8 kg Intake: Oral 450 240 Output: Chest Tube Drainage 130 60 0 R. Chest Tube - A ( 130 60 0 Anterior) Other: Voiding Method Toilet Toilet # Voids 3 1 ABP, PAP, CO, CI - Last Documented Arterial Blood Pressure 81/41 - Exam GENERAL EXAM: Alert, pleasant, 58-year-old female, in a chair, on 3 L nasal cannula, in no apparent distress. HEAD: Normocephalic. EYES: Normal reaction of pupils, equal size. NOSE: Clear with pink turbinates. THROAT: No erythema or exudates. NECK: No masses, no JVD. CHEST: No chest wall deformity. Right-sided S2 been placed to Pleur-evac and to waterseal. Positive leak with forceful cough. LUNGS: Equal air entry with crackles in the right lung base, diminished. CVS: S1 and S2 normal with no audible murmur, regular rhythm. ABDOMEN: No hepatosplenomegaly, normal bowel sounds, no guarding or rigidity. SPINE: No scoliosis or deformity SKIN: No rashes CENTRAL NERVOUS SYSTEM: No focal deficits, tone is normal in all 4 extremities. EXTREMITIES: There is no peripheral edema. No clubbing, no cyanosis. Peripheral pulses are intact. - Labs CBC & Chem 7: 10/20/23 08:04 10/20/23 08:04 Labs: Abnormal Lab Results - Last 24 Hours (Table) 10/20/23 10/20/23 Range/Units 08:04 08:04 RBC 2.80 L (3.80-5.40) m/uL Hgb 8.1 L (11.4-16.0) gm/dL Hct 26.4 L (34.0-46.0) % MCHC 30.9 L (31.0-37.0) g/dL RDW 16.2 H (11.5-15.5) % Lymphocytes # 0.9 L (1.0-4.8) k/uL Chloride 97 L (98-107) mmol/L Carbon Dioxide 36 H (22-30) mmol/L BUN 6 L (7-17) mg/dL Creatinine 0.40 L (0.52-1.04) mg/dL Calcium 8.0 L (8.4-10.2) mg/dL Microbiology - Last 24 Hours (Table) 10/14/23 16:56 Blood Culture - Final Blood Assessment and Plan Assessment: Non-small cell lung cancer status post right upper lobectomy, done on 08/19/2023. Two regional hilar lymph nodes were positive for metastasis. No other lymph nodes involved. Post-operative hospital stay was complicated by persistent residual right apical pneumothorax. During this current hospitalization, she did have a follow-up bronchoscopy with BAL done on 08/31/2023, which did not isolate any bacterial organisims. Right pleural fluid culture is showing brevibacterium species Likely secondary lung abscess, A CT of the chest 09/28/2023 demonstrated focal severe consolidation of the right upper lobe measuring 7.7 cm with what appears to be a fluid density concerning for pulmonary abscess. There is an adjacent residual loculated small anterior upper lung pneumothorax measuring 4.5 cm. There is a possible second pulmonary abscess or cavitary necrosis with air-fluid level anterior right mid lung measuring 9.2 x 8.2 x 7.4 cm. status post bronchoscopy and status post pigtail catheter placement into the lung abscess. Pleural fluid culture positive for gram positive bacilli/brevibacterium species. Completed vancomycin and completed aztreonam. Follow-up computed tomography scan 10/07/2023 continues to show a residual lung abscess measuring approximate 6.0 x 5.0 cm, previously 8.2 x 7.4 cm's. On 10/13/2023 she had undergone a redo thoracotomy, extensive lysis of adhesions, right middle lobectomy, cryoablation of intracostal nerves III through VII. Postoperative day #7. Residual right apical loculated pneumothorax, as described above Normocytic normochromic anemia, without any obvious blood loss Chronic obstructive pulmonary disease, with a FEV1 53% of predicted, stable. Former tobacco dependence History of asthma Hyperlipidemia Esophageal reflux disease History of diverticulitis status post bowel resection Osteoarthritis Plan: The patient was seen and evaluated Chest x-ray, labs and medications reviewed No plans for bronchoscopy today Pigtail catheter remains in place Continue bronchodilators Continues to work with the incentive spirometer Increase her activity as tolerated Heparin for DVT prophylaxis We will continue to follow I have personally seen and examined the patient, performed the documentation and the assessment and plan as written. Number of minutes spent on the visit: 10.
[2023-10-20] MEDS: ACETAMINOPHEN TAB 500 MG TAB PO PRN (20:15)
[2023-10-21] MEDS: PANTOPRAZOLE 40 MG TABLET PO SCH (05:24)
[2023-10-21] MEDS: KETOROLAC 15 MG/ML 1 ML VIAL IVP SCH ×3 (05:24→17:50)
--- NOTE | 2023-10-21 06:40 | P.PN ---
Subjective Progress Note Date: 10/20/23 Patient evaluated on medical floor. Pigtail catheter remains in place with 20 mls of output documented overnight. Patient continues with productive cough brown tinged sputum and repeat sputum culture has been sent and pending at this time. Chest xray today reveals cavitation vs. pneumothorax right apex. Small effusion may be present. Bronchial washings reveal inflammation, negative for diagnostic malignancy. Patient does have known NSCLC. Remains on IV aztreonam and IV vancomycin. Procalcitonin level 0.15. 10/06/2023 Patient evaluated sitting up in bed. No drainage noted from [facility] overnight. P igtail catheter remains n place. Chest xray today reveals stable appearance right lung with pneumothorax vs. cavitation apex. Small effusion may be present. Repeat sputum culture final showing normal hubert. The pleural fluid is finalized showing brevibacterium species. 10/07/2023 Patient is evaluated today sitting up in bed. Legs are swollen, patient has been receiving IV fluids which will be stopped. IV lasix x 1 will be given and recommending SCDs for this. Edema is non pitting. Patient had chest xray this AM showing possible loculated pneumothorax vs. cavitary process. Subpulmonic right basilar effusion. The left lung is clear. Pigtail catheter remains in place again minimal to no drainage overnight. CT following closely. Repeat sputum showing normal hubert. Remains on IV antibiotics. Patient remains on room air. 10/08/[address] yesterday showing residual lung abscess with significant fluid content remaining. Thickening of the right pectoralis major muscle with s ome air and possibly fluid within and may relate to developing infection in this location. Pigtail catheter remains in place. Bilateral pleural effusions. Small left and moderate right pleural effusion. Sodium 139, renal function stable. 10/09/2023 Patient evaluated today sitting up in bed. Lower extremity edema is improved after a second dose of IV lasix, remains off fluids she is eating and drinking well. BENJAMÍN hose to be applied today should help with the swelling as well. Patient continues with the pigtail catheter which has had minimal drainage over the last 2 days. Patient will be going for thoracotomy and right middle lobectomy on Wednesday. Patient remains on IV vancomycin per ID and PICC line is in place. 10/10/2023 Patient evaluated today sitting up in bed. Remains on 2L of oxygen. Lower extremity edema improved. Continues on IV vancomycin. Pending repeat chest xray reports. Cardiothoracic following closely patient will go for right middle lobectomy and thoracotomy on Wednesday. 10/13/2023 Patient is seen in follow-up this morning currently nothing by mouth as she is scheduled to undergo thoracotomy with right middle lobectomy with CT surgery. Pulmonary following closely patient continues on 2 L of oxygen along with antibiotics. Plan is for going to ICU postop and will await surgical report. Patient is sitting up with multiple family members at bedside with questions and concerns were answered to the best of our ability. Patient is currently afebrile with no reports of worsening shortness of breath. Patient denies any nausea or vomiting and currently nothing by mouth for the procedure. 10/14/2023 Patient is seen in follow-up in the ICU status post right middle lobectomy with CT surgery yesterday. Patient with multiple medical consultations following continues on low-dose pressor support for hypotension. Patient also on epidural pain pump with anesthesia following has been titrating meds accordingly due to continued low blood pressure patient has been receiving large amounts of fluid showing some minimal improvement in blood pressures. Patient is alert and oriented sitting up in the chair and continued on 2 L via nasal cannula. Patient is afebrile and maintained on meropenem along with vancomycin with infectious disease following. Encouraged incentive spirometer use and awaiting follow-up labs. Patient continues with indwelling Jimenez catheter for continued strict intake and output monitoring. PT/OT therapy for evaluation. 10/15/2023 Patient is seen in follow-up today currently sitting up in the chair remains in the ICU with multiple medical consultations following. Patient continues on meropenem along with vancomycin and awaiting cultures. Patient continues with right-sided chest tubes being placed to waterseal. Patient continues on low- dose vasopressin his blood pressures are low. IV fluids being discontinued as chest x-ray shows some pleural effusions. Blood pressures are marginal and will be monitored closely in the ICU. Patient continues on 2-3 L via nasal cannula continues to report shortness of breath although no worse. Patient is having chest wall pain at the chest tube sites and pain medications being adjusted including any oral medications. Patient is afebrile and hemoglobin is stable although trending down but above 7 today. Recommend to monitor closely and transfuse of 7 or less. No reported nausea or vomiting patient tolerating diet needs encouragement with meals. 10/16/2023 Patient is in the MICU. Awake alert and oriented x 3. On 2 L oxygen via nasal cannula. Was able to ambulate in the floyd but still having exertional dyspnea. Also complains of soreness at the chest tube site. Right posterior pleural chest tube was removed today. Still having anterior chest tube draining ser osanguineous fluid.. Patient has been afebrile. Remains on antibiotics in the form of vancomycin and meropenem. No complaints of nausea or vomiting. No cough or sputum production. Pleural fluid culture showed Brevibacterium species on 10/01/2023.. Laboratory test showed WBC 5.1 hemoglobin 7.8 and platelets 185, sodium 132 potassium 3.8 chloride 99 bicarb is 28 BUN 15 and creatinine 0.48 Chest x-ray this morning showed postsurgical changes right hemithorax with [address]. No appreciable pneumothorax. Pleural parenchymal opacities throughout the right side of the chest are fairly similar. Slightly increasing patchy atelectasis or infiltrate at the left base. 10/17/2023 Patient is currently sitting in the chair. Awake alert and oriented x 3. On 2 L oxygen via nasal cannula. Right anterior chest tube in place draining serosanguineous fluid. Pain is controlled with medications. Patient has been afebrile. Chest x-ray today showed similar postsurgical changes and volume loss in the right hemithorax with slightly improving interstitial densities througho ut right lung. Underlying small right effusion. Right-sided chest tube in place. No appreciable pneumothorax. Laboratory data showed WBC 3.6 hemoglobin 7.5 and platelets 217 potassium 3.3 chloride 103 bicarb is 27 BUN 10 and creatinine 0.9 and calcium 7.6. Patient is being continued on antibiotics in the form of vancomycin and meropenem. 10/18/2023 Patient is seen in follow-up this morning continues to be in the ICU. Patient with one remaining chest tube and discussion of possible removal of the other in the next 24-48 hours. Follow-up chest x-ray ordered showing continue po stsurgical right hemothorax redemonstrated with patchy opacification is on the right middle and lower lung slightly improved with a trace of effusion with an ongoing small left effusion with atelectasis. Patient does have incentive spirometer at the bedside and reports has been using very frequently. Patient continues on antibiotics in the form of meropenem and vancomycin with infectious disease following an cultures thus far have been negative. Hemoglobin is stable at 7.8 today and BMP within normal limits. Magnesium slightly low and replacement protocol ordered. Will follow up on repeat labs. 10/19/2023 Patient is seen in follow-up has been transitioned and downgraded from the ICU on 3 south now continues with chest tube and chest x-ray today shows developing left lower lobe infiltrate with small effusion may be present along with a right lobectomy postsurgical changes that remain. Patient to continue with chest tube per CT surgery. Patient having continued shortness of breath maintained on 4 L via nasal cannula and having some bilateral lower extremity swelling and was giv en a dose of IV Lasix today. Sodium is 138 with a potassium of 3.5, BUN is 7 and creatinine is 0.4. Magnesium is 1.6 and will replace per protocol. Patient also continues on breathing inhalational treatments as well as Mucomyst and will continue. Patient has been instructed and encouraged to continue with incentive spirometer at least 10 times every hour while awake. Patient is currently afeb rile and report shortness of breath with chest wall discomfort although denies chest pain or palpitations. Patient is extremely lethargic today and reports has been up and walking and resting frequently. Patient tolerating oral intake with no reported nausea or vomiting. 10/20/2023 Patient is seen in follow-up this morning reporting she feels tired although is easily arousable, alert and oriented 3. Patient appears somewhat uncomfortable in the bed and encourage getting up out of the bed and frequent walking. Patient reports she has been walking and tolerating and does become extremely s hort of breath although recovers. Patient currently maintained on 4 L with continued chest tube as her continues to be a minimal air leak present. CT surgery followed with no plans of removing the tube at this time. Patient encouraged to continue using incentive spirometer at least 10 times every hour while awake. Per nursing staff nightshifts reported some altered mentation or intermittent periods of confusion which is likely multifactorial due to episodes of hypoxia requiring more oxygen as well as possible Flexeril side effect and will hold this for now. Patient is taking a number of pain medications that could contribute and will monitor closely. Review of Systems Constitutional: Denied any fatigue denied any fever. Cardio vascular: denied any chest pain, palpitations, reports chest wall pain with one chest tube remaining Gastrointestinal: denied any nausea, vomiting, diarrhea Pulmonary: Reports shortness of breath that Worsens with exertion Neurologic denied any new focal deficits All medications were reviewed PHYSICAL EXAMINATION: GENERAL: The patient is alert and oriented x3, . Well developed, well nourished. Obese HEENT: Pupils are round and equally reacting to light. EOMI. No scleral icterus. No conjunctival pallor. Normocephalic, atraumatic. No pharyngeal erythema. No thyromegaly. CARDIOVASCULAR: S1 and S2 muffled PULMONARY: Diminished breath sounds bilaterally and more so on the right with Crackles in the right lung base. Right thoracotomy tube in place. With serosanguineous output noted ABDOMEN: Soft, nontender, nondistended, normoactive bowel sounds. No palpable organomegaly. MUSCULOSKELETAL: No joint swelling or deformity. EXTREMITIES: No cyanosis, clubbing +1 peripheral edema/ankle edema non pitting. NEUROLOGICAL: Gross neurological examination did not reveal any focal deficits. Diffusely weak SKIN: No rashes. Assessment: Pneumonia with possible lung abscess, status post bronchoscopy, status post right middle lobe lobectomy on 10/13/2023 Rule out Cavitary lung lesion/pulmonary abscess as well as possible second ovary abscess or cavity necrosis Non-small cell lung cancer status post right upper lobectomy, done on 08/19/2023. 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 The bronchial washings are negative for malignancy and sputum showing gram positive. Repeat sputum culture showing normal hubert. Infectious disease is following Patient is status post right middle lobe ectomy and continues with 1 right-sided chest tubes showing serosanguineous fluid. Repeat chest x-ray ordered showing some pleural effusions and persistent air leak with no plans of removing the chest tube per CT surgery at this time Oral medications being added to the pain regimen. Recommend holding Flexeril as patient per nursing staff was having intermittent periods of confusion and will monitor closely. Continue BENJAMÍN hose and to elevate lower extremities while sitting. Continue to encourage incentive spirometer 10 x an hour while awake. Patient is currently maintained on 4 L via nasal cannula recommend wean FiO2 as tolerated. Patient requiring more oxygen today reporting increasing shortness of breath with exertion Increase activity level. Will need extensive PT/OT therapy postoperatively once cleared by CT surgery area patient has been up and walking the halls at least 2- 3 times per day Will need to discuss further with case management/social work on discharge planning as patient may likely need ECF. Ultimately patient would like to return home but unsure at this point if this is safe discharge plan Repeat labs pending We'll follow up on repeat labs. Due to multiple complex medical issues, prognosis is guarded Per nursing staff, No plans for removal of the chest tube at this time per CT recommendations. No plans for bronchoscopy per pulmonary. Repeat chest x-ray ordered tomorrow The impression and plan of care has been dictated by Pamela Bryant, Nurse Practitioner as directed. Dr. Lavern MD I have performed a history and examination and MDM of this patient, discussed the same with the dictator, and agree with the dictator's assessment and plan as written ,documented as a scribe. Based on total visit time, I have performed more than 50% of the visit. Objective - Vital Signs Vital signs: Vital Signs Temp 98.1 F 10/21/23 04:00 Pulse 108 H 10/21/23 04:00 Resp 22 10/21/23 04:00 BP 141/86 10/21/23 04:00 Pulse Ox 96 10/21/23 04:00 FiO2 35 10/19/23 11:24 Intake & Output 10/20/23 10/20/23 10/21/23 06:59 18:59 06:59 Intake Total 240 0 Output Total 60 100 570 Balance 180 -100 -570 Weight 81.8 kg Intake: Oral 240 0 Output: Chest Tube Drainage 60 100 70 R. Chest Tube - A ( 60 100 70 Anterior) Urine 500 Other: Voiding Method Toilet Toilet # Voids 1 2 1 ABP, PAP, CO, CI - Last Documented Arterial Blood Pressure 81/41 - Labs CBC & Chem 7: 10/20/23 08:04 10/20/23 08:04 Labs: Abnormal Lab Results - Last 24 Hours (Table) 10/20/23 10/20/23 Range/Units 08:04 08:04 RBC 2.80 L (3.80-5.40) m/uL Hgb 8.1 L (11.4-16.0) gm/dL Hct 26.4 L (34.0-46.0) % MCHC 30.9 L (31.0-37.0) g/dL RDW 16.2 H (11.5-15.5) % Lymphocytes # 0.9 L (1.0-4.8) k/uL Chloride 97 L (98-107) mmol/L Carbon Dioxide 36 H (22-30) mmol/L BUN 6 L (7-17) mg/dL Creatinine 0.40 L (0.52-1.04) mg/dL Calcium 8.0 L (8.4-10.2) mg/dL Microbiology - Last 24 Hours (Table) 10/14/23 16:56 Blood Culture - Final Blood
[2023-10-21 07:26] LABS: HCT 26.7 % (34.0-46.0); HGB 8.4 gm/dL (11.4-16.0); Hypochromasia Marked; MCH 29.7 pg (25.0-35.0); MCHC 31.5 g/dL (31.0-37.0); MCV 94.1 fL (80.0-100.0); Mean Platelet Volume 7.2; Platelet Count 393 k/uL (150-450); RBC 2.84 m/uL (3.80-5.40); RDW 15.7 % (11.5-15.5); WBC 5.5 k/uL (3.8-10.6)
--- NOTE | 2023-10-21 07:41 | XR ---
EXAMINATION TYPE: XR chest 2V DATE OF EXAM: 10/21/2023 COMPARISON: 10/20/2023 HISTORY: Shortness of breath TECHNIQUE: Frontal and lateral views of the chest are obtained. FINDINGS: Scattered senescent parenchymal changes noted. Hyperinflation compatible with COPD. Postoperative right-sided lobectomy. Right-sided chest tube in place. Skin isela noted. Scattered s ubpleural parenchymal opacity right lung. Left lung demonstrates mild hyperinflation. No evidence of pneumothorax. Heart size is stable. Mediastinal structures are stable and grossly unremarkable. No evidence for hilar prominence. Degenerative changes dorsal spine. IMPRESSION: 1. Stable postoperative changes.
[2023-10-21] MEDS: IPRATROPIUM-ALBUTEROL 3 ML NEB INHALATION SCH ×4 (07:43→21:52)
[2023-10-21] MEDS: BUDESONIDE 0.5 MG/2 ML NEBU INHALATION SCH ×2 (07:43→21:53)
[2023-10-21] MEDS: FORMOTEROL FUMARATE 20 MCG/2 ML NEBU INHALATION SCH ×2 (07:43→21:52)
[2023-10-21] MEDS: ACETYLCYSTEINE 800 MG/4 ML VIAL INHALATION SCH ×3 (07:43→21:52)
[2023-10-21 07:45] LABS: African American GFR (CKD) >90 (>60 ml/min/1.73 sqM); Anion Gap 6 mmol/L; Blood Urea Nitrogen 7 mg/dL (7-17); Calcium 7.9 mg/dL (8.4-10.2); Carbon Dioxide 36 mmol/L (22-30); Chloride 97 mmol/L (98-107); Glucose 88 mg/dL (74-99); Magnesium 1.5 mg/dL (1.6-2.3); Non-African American GFR(CKD) >90 (>60 ml/min/1.73 sqM); Sodium 139 mmol/L (137-145)
[2023-10-21] MEDS: SERTRALINE 50 MG TAB PO SCH (08:21)
[2023-10-21] MEDS: guaiFENesin 600 MG TABLET.ER PO SCH ×2 (08:21→21:35)
[2023-10-21] MEDS: oxyCODONE ER 10 MG TAB.ER.12H PO SCH (08:21)
[2023-10-21] MEDS: LIDOCAINE 4% PATCH TOPICAL SCH (08:22)
[2023-10-21] MEDS: HEPARIN SODIUM,PORCINE 5,000 UNIT/ML 1 ML VIAL SQ SCH ×2 (08:22→17:56)
[2023-10-21] MEDS ORDERED: FUROSEMIDE 10 MG/ML 4 ML VIAL IV STA (10:56)
--- NOTE | 2023-10-21 12:15 | P.PN ---
Subjective Progress Note Date: 10/21/23 Principal diagnosis: Necrosis and abscess of right middle lobe, pneumonia with possible lung abscess, small right pleural effusion, residual loculated small anterior upper lung pne umothorax, leukocytosis, normocytic normochromic anemia. History of non-small cell carcinoma with neuroendocrine differentiation, consistent with large cell neuroendocrine carcinoma status post robotic-assisted right upper lobectomy on 08/19/2023 and subsequent bronchoscopy with placement of right thoracostomy tube, chronic tobacco dependence with recent cessation, COPD, asthma, hyperlipidemia, GERD, diverticulitis status post bowel resection, osteoarthritis POD #8 redo thoracotomy, extensive lysis of adhesions, right middle lobectomy, cryoablation of intercostal nerves 3-7 The patient was seen and examined sitting up in a recliner on the cardiac stepdown unit with Dr. Driscoll. Patient states pain is tolerable currently although family has had multiple complaints about her being in significant pain. They have also had multiple text message discussions regarding her mental status-they would like her pain medication changed from OxyContin to Dilaudid as she did not "have any problems with the Dilaudid". They do not feel Tylenol would be enough to control her pain although patient has not even had her allotted daily Tylenol dose so far. Currently on 5 L nasal cannula with oxygen saturation in the high 90s, only able to achieve 750 mL on her incentive spirometry. Right pleural chest tube remains present to waterseal, minimal air leak continues to be present with forceful coughing. She has ambulated with assistance although needs much encouragement. was updated extensively yesterday, as well as daughter who was present at the bedside and another daughter who was on the phone. All questions have been answered to the best of my ability. Chest x-ray, labs reviewed. No other new concerns. Objective - Vital Signs Vital signs: Vital Signs Temp 97.7 F 10/21/23 08:20 Pulse 108 H 10/21/23 11:33 Resp 16 10/21/23 08:20 BP 124/74 10/21/23 08:20 Pulse Ox 99 10/21/23 08:20 FiO2 35 10/19/23 11:24 Intake & Output 10/20/23 10/21/23 10/21/23 18:59 06:59 18:59 Intake Total 0 250 Output Total 100 570 50 Balance -100 -570 200 Intake: IV 10 Invasive Line 1 10 Oral 0 240 Output: Chest Tube Drainage 100 70 50 R. Chest Tube - A ( 100 70 50 Anterior) Urine 500 Other: Voiding Method Toilet Toilet # Voids 2 1 1 ABP, PAP, CO, CI - Last Documented Arterial Blood Pressure 81/41 - Exam CONSTITUTIONAL: Appears comfortable, cooperative, does appear to have a bit more conversational dyspnea than yesterday RESPIRATORY: Lungs sounds diminished bilaterally. Respirations even, nonlabored. Currently on 5 LPM NC with oxygen saturation 99%. Able to achieve 750 mL on incentive spirometry. Strong cough. CARDIOVASCULAR: S1, S2 present. Regular rate and rhythm, sinus rhythm on telemetry. Palpable peripheral pulses bilaterally. No edema present. No calf pain or tenderness noted GASTROINTESTINAL: Abdomen soft, nontender, nondistended. Active bowel sounds present 4 quadrants. Tolerating diet, no documented bowel movement since 10/16 GENITOURINARY: Continues to void INTEGUMENTARY: Skin is warm and dry. Thoracic incisions well healed NEUROLOGIC: Cranial nerves II through XII intact MUSKULOSKELETAL: Able to move all extremities, strength equal bilaterally, gait normal PSYCHIATRIC: Alert and oriented to person place and time, appropriate affect, intact judgment and insight INVASIVE TUBES: Right pleural chest tube present to waterseal, minimal air leak present with forceful coughing, 140 mL serous drainage in the last 24 hours - Allied health notes Allied health notes reviewed: nursing - Labs CBC & Chem 7: 10/21/23 06:59 10/21/23 06:59 Labs: Abnormal Lab Results - Last 24 Hours (Table) 10/21/23 10/21/23 Range/Units 06:59 06:59 RBC 2.84 L (3.80-5.40) m/uL Hgb 8.4 L (11.4-16.0) gm/dL Hct 26.7 L (34.0-46.0) % RDW 15.7 H (11.5-15.5) % Chloride 97 L (98-107) mmol/L Carbon Dioxide 36 H (22-30) mmol/L Creatinine 0.40 L (0.52-1.04) mg/dL Calcium 7.9 L (8.4-10.2) mg/dL Magnesium 1.5 L (1.6-2.3) mg/dL - Imaging and Cardiology Chest x-ray: report reviewed, image reviewed Assessment and Plan Assessment: Pneumonia with possible lung abscess, status post bronchoscopy and right sided pigtail catheter placement, status post right middle lobectomy Small right pleural effusion, residual loculated small anterior upper lung pneumothorax Leukocytosis, secondary to above Normocytic normochromic anemia Non-small cell carcinoma with neuroendocrine differentiation, consistent with large cell neuroendocrine carcinoma status post robotic-assisted right upper lobectomy on 08/19/2023 and subsequent bronchoscopy with placement of right thoracostomy tube Chronic tobacco dependence with recent cessation COPD, FEV1 87%, DLCO 55% Asthma Hyperlipidemia GERD Diverticulitis status post bowel resection Osteoarthritis Plan: Continue right pleural chest tube to waterseal, monitor for air leak resolution Wean O2 as tolerated. Encourage incentive spirometry 10 times every hour while awake Will continue to update the and he may pass information along to the rest of the family Will monitor daily labs, CXR GI/DVT prophylaxis Increase activity as tolerated, out of bed for all meals, ambulate in hallway Pain control per current medication regimen, narcotics discontinued due to family's concern over patient's mentation, encouraged to increase Tylenol use, continue Toradol Reinforced continued smoking cessation Bronchodilator per pneumatic tester Medical management of other comorbidities per internal medicine, pulmonology, ID More recommendations to follow based on patient's clinical course
--- NOTE | 2023-10-21 13:45 | P.PN ---
Subjective Progress Note Date: 10/21/23 The patient is seen today 10/20/2023 in follow-up on the regular medical floor. She is postoperative #7 of a redo thoracotomy with extensive lysis of adhesions, right middle lobectomy and cryoablation of the intercostal nerves III through VII. She is sitting up in a chair. Awake and alert in no acute distress. Maintaining good O2 saturations in the 90s on 3 L/m per nasal cannula. Afebrile. She continues with a right-sided chest tube in place to pleural VAC and water seal, positive leak with forceful cough. Chest x-ray shows possible developing right pleural effusion and atelectasis. No significant worsening. No plans for bronchoscopy today. She is continued on DuoNeb inhalations, Mucomyst inhalations, Pulmicort and Perforomist inhalations, Mucinex. Heparin for DVT prophylaxis. White count 4.0. Hemoglobin 8.1. Platelets 324. Sodium 138. Potassium 3.7. Bicarb 36. BUN 6. Creatinine 0.40. The patient is seen today 10/21/2023 in follow-up on the selective care unit. She is postoperative day #8. She is sitting up in a chair at the bedside. Awake and alert in no acute distress. She is maintaining good O2 saturations in the mid 90s on 3 L/m per nasal cannula. She's afebrile. Hemodynamically stable. Chest x-ray reveals stable postoperative changes. Scattered subpleural parenchymal opacity of the right lung. No evidence of pneumothorax. Right- sided chest tube remains in place to waterseal. Minimal leak only with forceful coughing. She has been up ambulating with assistance. Only pulling approximately 750 MLS on the incentive spirometer and continues to require increased encouragement to utilize hourly. She is status post 7 units of packed red blood cells, 2 units of fresh frozen plasma, one unit of platelets this admission. White count 5.5. Hemoglobin 8.4. Platelets 393. Sodium 139. Potassium 4.0. Bicarb 36. BUN 7. Creatinine 0.40. Glucose 88. She remains on Mucomyst inhalations, DuoNeb inhalations, Pulmicort and Perforomist inhalations, Mucinex. Heparin for DVT prophylaxis. Objective - Vital Signs Vital signs: Vital Signs Temp 97.7 F 10/21/23 08:20 Pulse 84 10/21/23 13:06 Resp 16 10/21/23 13:06 BP 130/65 10/21/23 13:06 Pulse Ox 97 10/21/23 13:06 FiO2 35 10/19/23 11:24 Intake & Output 10/20/23 10/21/23 10/21/23 18:59 06:59 18:59 Intake Total 0 250 Output Total 100 570 50 Balance -100 -570 200 Intake: IV 10 Invasive Line 1 10 Oral 0 240 Output: Chest Tube Drainage 100 70 50 R. Chest Tube - A ( 100 70 50 Anterior) Urine 500 Other: Voiding Method Toilet Toilet # Voids 2 1 1 ABP, PAP, CO, CI - Last Documented Arterial Blood Pressure 81/41 - Exam GENERAL EXAM: Alert, 58-year-old female, sitting up in a chair, on 3 L nasal cannula, in no apparent distress. HEAD: Normocephalic. EYES: Normal reaction of pupils, equal size. NOSE: Clear with pink turbinates. THROAT: No erythema or exudates. NECK: No masses, no JVD. CHEST: No chest wall deformity. Right-sided chest tube placed to Pleur-evac and to waterseal. Minimal leak with forceful cough. LUNGS: Equal air entry with crackles in the right lung base, diminished. CVS: S1 and S2 normal with no audible murmur, regular rhythm. ABDOMEN: No hepatosplenomegaly, normal bowel sounds, no guarding or rigidity. SPINE: No scoliosis or deformity SKIN: No rashes CENTRAL NERVOUS SYSTEM: No focal deficits, tone is normal in all 4 extremities. EXTREMITIES: There is no peripheral edema. No clubbing, no cyanosis. Peripheral pulses are intact. - Labs CBC & Chem 7: 10/21/23 06:59 10/21/23 06:59 Labs: Abnormal Lab Results - Last 24 Hours (Table) 10/21/23 10/21/23 Range/Units 06:59 06:59 RBC 2.84 L (3.80-5.40) m/uL Hgb 8.4 L (11.4-16.0) gm/dL Hct 26.7 L (34.0-46.0) % RDW 15.7 H (11.5-15.5) % Chloride 97 L (98-107) mmol/L Carbon Dioxide 36 H (22-30) mmol/L Creatinine 0.40 L (0.52-1.04) mg/dL Calcium 7.9 L (8.4-10.2) mg/dL Magnesium 1.5 L (1.6-2.3) mg/dL Assessment and Plan Assessment: Non-small cell lung cancer status post right upper lobectomy, done on 08/19/2023. Two regional hilar lymph nodes were positive for metastasis. No other lymph nodes involved. Post-operative hospital stay was complicated by p ersistent residual right apical pneumothorax. During this current hospitalization, she did have a follow-up bronchoscopy with BAL done on 08/31/2023, which did not isolate any bacterial organisims. Right pleural fluid culture is showing brevibacterium species Likely secondary lung abscess, A CT of the chest 09/28/2023 demonstrated focal severe consolidation of the right upper lobe measuring 7.7 cm with what appears to be a fluid density concerning for pulmonary abscess. There is an adjacent residual loculated small anterior upper lung pneumothorax measuring 4.5 cm. There is a possible second pulmonary abscess or cavitary necrosis with air-fluid level anterior right mid lung measuring 9.2 x 8.2 x 7.4 cm. Status post bronchoscopy and status post pigtail catheter placement into the lung abscess. Pleural fluid culture positive for gram positive bacilli/brevibacterium species. Completed vancomycin and completed aztreonam. Follow-up computed tomography scan 10/07/2023 continues to show a residual lung abscess measuring approximate 6.0 x 5.0 cm, previously 8.2 x 7.4 cm's. On 10/13/2023 she had undergone a redo thoracotomy, extensive lysis of adhesions, right middle lobectomy, cryoablation of intracostal nerves III through VII. Postoperative day #8. Residual right apical loculated pneumothorax, as described above Normocytic normochromic anemia, without any obvious blood loss Chronic obstructive pulmonary disease, with a FEV1 53% of predicted, stable. Former tobacco dependence History of asthma Hyperlipidemia Esophageal reflux disease History of diverticulitis status post bowel resection Osteoarthritis Plan: The patient was seen and evaluated Chest x-ray, labs and medications reviewed Pigtail catheter remains in place to waterseal Continue Mucomyst, DuoNeb, Pulmicort and Perforomist inhalations Heparin for DVT prophylaxis Encouraged the increased use of the incentive spirometer Increase her activity as tolerated Titrate the FiO2 as tolerated We will continue to follow I have personally seen and examined the patient, performed the documentation and the assessment and plan as written. Number of minutes spent on the visit: 10.
[2023-10-21] MEDS ORDERED: BENZOCAINE/MENTHOL LOZENG 1 EACH LOZENGE MUCOUS MEM PRN (14:42)
[2023-10-21] MEDS: MAGNESIUM SULFATE-D5W PMX 1 GM in DEXTROSE/WATER 1 100ML.BAG IVPB SCH ×2 (14:43→15:50)
--- NOTE | 2023-10-21 15:07 | P.PN ---
Subjective Progress Note Date: 10/21/23 Principal diagnosis: Reason for follow-up is pneumonia/lung abscess This is a reconsult Patient is a 57-year-old female with a past medical history significant for COPD hypertension lipidemia osteomyelitis with a recent diagnosis of right upper lobe lung cancer pathology non-small cell with neuroendocrine differentiation the patient is status post robotic assisted right upper lobectomy on 08/19/2023, now presented to hospital with persistent cough shortness of breath did have a low-grade fever abnormal CT suspicious for possible pneumonia/lung abscess, the patient is status post bronchoscopy by pulmonary and patient also have a pigtail catheter placed in by IR, subsequently Patient is status post redo thoracotomy with lysis of adhesion and right middle lobectomy completed on 10/13/2023 Has been asked by pulmonary for evaluation as of 10/21/2023 On today's evaluation that is 10/21/2023 the patient denies any fever or any chills, the patient is breathing comfortably on 3 L nasal cannula oxygen, the patient has been complaining of right-sided chest pain slightly increased in intensity ,The patient continued to have cough with occasional sputum production but no hemoptysis, patient denies abdominal pain and no nausea vomiting and no diarrhea has been reported by the nursing staff Patient white count is 5.5, creatinine 0.40 Review of systems: Positive point and negatives has been mentioned in the HPI, complete review of systems was performed and all other systems are negative Past medical surgical history reviewed Medication review Objective - Vital Signs Vital signs: Vital Signs Temp 97.7 F 10/21/23 08:20 Pulse 84 10/21/23 13:06 Resp 16 10/21/23 13:06 BP 130/65 10/21/23 13:06 Pulse Ox 97 10/21/23 13:06 FiO2 35 10/19/23 11:24 Intake & Output 10/20/23 10/21/23 10/21/23 18:59 06:59 18:59 Intake Total 0 250 Output Total 100 570 50 Balance -100 -570 200 Intake: IV 10 Invasive Line 1 10 Oral 0 240 Output: Chest Tube Drainage 100 70 50 R. Chest Tube - A ( 100 70 50 Anterior) Urine 500 Other: Voiding Method Toilet Toilet # Voids 2 1 1 ABP, PAP, CO, CI - Last Documented Arterial Blood Pressure 81/41 - Exam GENERAL DESCRIPTION: A middle-age female up in bed in no distress RESPIRATORY SYSTEM: Unlabored breathing , decreased breath sounds at the base HEART: S1 S2 regular rate and rhythm , ABDOMEN: Soft , no tenderness EXTREMITIES: No edema feet - Labs CBC & Chem 7: 10/21/23 06:59 10/21/23 06:59 Labs: Abnormal Lab Results - Last 24 Hours (Table) 10/21/23 10/21/23 Range/Units 06:59 06:59 RBC 2.84 L (3.80-5.40) m/uL Hgb 8.4 L (11.4-16.0) gm/dL Hct 26.7 L (34.0-46.0) % RDW 15.7 H (11.5-15.5) % Chloride 97 L (98-107) mmol/L Carbon Dioxide 36 H (22-30) mmol/L Creatinine 0.40 L (0.52-1.04) mg/dL Calcium 7.9 L (8.4-10.2) mg/dL Magnesium 1.5 L (1.6-2.3) mg/dL Assessment and Plan (1) Pneumonia Current Visit: Yes Status: Acute Code(s): J18.9 - PNEUMONIA, UNSPECIFIED ORGANISM SNOMED Code(s): 957609504 (2) Allergy to multiple antibiotics Current Visit: Yes Status: Acute Code(s): Z88.1 - ALLERGY STATUS TO OTHER ANTIBIOTIC AGENTS SNOMED Code(s): 415321061 (3) Lung abscess Current Visit: Yes Status: Acute Code(s): J85.2 - ABSCESS OF LUNG WITHOUT PNEUMONIA SNOMED Code(s): 44987723 Plan: 1patient presented to hospital with sepsis in this patient who did have a fever tachycardia hypoxemia elevated white count source is unlikely pneumonia with question of possible abscess/empyema in this patient with recent surgery ,patient is status post bronchoscopy lavage and also have placement of a pigtail catheter by IR , pleural fluid cultures grew Brevibacterium species,patient subsequently status post right middle lobe lobectomy on 10/13/2023 and post op noticed to have slight worsening of the white count and hypotension , concerning for possible sepsis related to it, patient did have a repeat culture which has been negative so far,and the patient completed almost 3 course of IV antibiotic therapy antibiotic was subsequently discontinued by CT surgery on 10/19/2023 2patient with the penicillin and cephalosporin allergy that would limit the number of antibiotics safe to use and the patient completed almost 3 course of IV antibiotic therapy 3-on reevaluation today 10/21/2023 the patient remains to be afebrile and the patient did have a normal white count with did ask for repeat cultures along with inflammatory markers antibiotics may need to be added on the basis of these results, multiple questions and concerns were answered Dictation was produced using [employer] dictation software. please excuse any grammatical, word or spelling errors. Time with Patient: Greater than 30
[2023-10-21 15:36] VITALS: BMI 33.0
[2023-10-21] MEDS: ACETAMINOPHEN TAB 500 MG TAB PO PRN ×2 (15:50→21:35)
[2023-10-21] MEDS ORDERED: TEMAZEPAM 7.5 MG CAP PO STA (20:26)
[2023-10-21] MEDS: SENNOSIDES-DOCUSATE SODIUM 1 EACH TAB PO SCH (21:34)
--- NOTE | 2023-10-22 00:15 | XR ---
EXAM: XR Chest, 1 View CLINICAL HISTORY: ITS.REASON XR Reason: recheck after chest tube pulled TECHNIQUE: Frontal view of the chest. COMPARISON: No relevant prior studies available. FINDINGS: Lungs: Right mid lung infiltrate may be postprocedural in nature. Pleural space: Small right apical pneumothorax. Small right pleural effusion. Heart: Unremarkable. No cardiomegaly. Mediastinum: Unremarkable. Normal mediastinal contour. Bones/joints: Unremarkable. No acute fracture. Tubes, lines and devices: Left-sided central venous catheter with its tip at the cavoatrial junction. Other findings: Postoperative changes right chest. IMPRESSION: 1. Postoperative changes of the right chest wall with small right pleural effusion and likely small right lower lobe atelectasis.. 2. Small right pneumothorax.
[2023-10-22] MEDS: HEPARIN SODIUM,PORCINE 5,000 UNIT/ML 1 ML VIAL SQ SCH ×4 (00:59→23:25)
[2023-10-22] MEDS: KETOROLAC 15 MG/ML 1 ML VIAL IVP SCH ×5 (01:00→23:25)
--- NOTE | 2023-10-22 01:02 | XR ---
EXAM: XR chest 1V portable CLINICAL INDICATION:Female, 58 years old with history of pulled chest tube out; [facility] COMPARISON: 10/21/2023 at 6:22 AM TECHNIQUE: Chest single view. FINDINGS: Lines/tubes/devices: Left arm PICC stable with tip over the SVC. Previous right chest tube has been r emoved. EKG leads and other extrinsic structures overlie the chest. Cardiomediastinum: Cardiac silhouette appears borderline mildly enlarged. Stable mediastinal silhouette. Partly calcified aorta. Vasculature: Mild central congestion unchanged. Lungs/pleura: Redemonstration of small bilateral pleural effusions, with mild bibasilar atelectasis, elevated right hemidiaphragm with postoperative changes the right chest wall again noted. A small right apical pneu mothorax is believed to be present. No sizable pneumothorax on the left. Bones/soft tissues: Bony thorax appears grossly intact as seen. Regional soft tissues appear unremarkable. IMPRESSION: 1. Status post removal of right chest tube, with small right apical pneumothorax. 2. Postoperative changes of the right chest wall. Similar appearance of the lungs, with small pleura l effusions and mild bibasilar atelectasis.
--- NOTE | 2023-10-22 06:02 | P.PN ---
Subjective Progress Note Date: 10/21/23 Patient evaluated on medical floor. Pigtail catheter remains in place with 20 mls of output documented overnight. Patient continues with productive cough brown tinged sputum and repeat sputum culture has been sent and pending at this time. Chest xray today reveals cavitation vs. pneumothorax right apex. Small effusion may be present. Bronchial washings reveal inflammation, negative for diagnostic malignancy. Patient does have known NSCLC. Remains on IV aztreonam and IV vancomycin. Procalcitonin level 0.15. 10/06/2023 Patient evaluated sitting up in bed. No drainage noted from atrium overnight. P igtail catheter remains n place. Chest xray today reveals stable appearance right lung with pneumothorax vs. cavitation apex. Small effusion may be present. Repeat sputum culture final showing normal hubert. The pleural fluid is finalized showing brevibacterium species. 10/07/2023 Patient is evaluated today sitting up in bed. Legs are swollen, patient has been receiving IV fluids which will be stopped. IV lasix x 1 will be given and recommending SCDs for this. Edema is non pitting. Patient had chest xray this AM showing possible loculated pneumothorax vs. cavitary process. Subpulmonic right basilar effusion. The left lung is clear. Pigtail catheter remains in place again minimal to no drainage overnight. CT following closely. Repeat sputum showing normal hubert. Remains on IV antibiotics. Patient remains on room air. 10/08/[address] yesterday showing residual lung abscess with significant fluid content remaining. Thickening of the right pectoralis major muscle with s ome air and possibly fluid within and may relate to developing infection in this location. Pigtail catheter remains in place. Bilateral pleural effusions. Small left and moderate right pleural effusion. Sodium 139, renal function stable. 10/09/2023 Patient evaluated today sitting up in bed. Lower extremity edema is improved after a second dose of IV lasix, remains off fluids she is eating and drinking well. BENJAMÍN hose to be applied today should help with the swelling as well. Patient continues with the pigtail catheter which has had minimal drainage over the last 2 days. Patient will be going for thoracotomy and right middle lobectomy on Wednesday. Patient remains on IV vancomycin per ID and PICC line is in place. 10/10/2023 Patient evaluated today sitting up in bed. Remains on 2L of oxygen. Lower extremity edema improved. Continues on IV vancomycin. Pending repeat chest xray reports. Cardiothoracic following closely patient will go for right middle lobectomy and thoracotomy on Wednesday. 10/13/2023 Patient is seen in follow-up this morning currently nothing by mouth as she is scheduled to undergo thoracotomy with right middle lobectomy with CT surgery. Pulmonary following closely patient continues on 2 L of oxygen along with antibiotics. Plan is for going to ICU postop and will await surgical report. Patient is sitting up with multiple family members at bedside with questions and concerns were answered to the best of our ability. Patient is currently afebrile with no reports of worsening shortness of breath. Patient denies any nausea or vomiting and currently nothing by mouth for the procedure. 10/14/2023 Patient is seen in follow-up in the ICU status post right middle lobectomy with CT surgery yesterday. Patient with multiple medical consultations following continues on low-dose pressor support for hypotension. Patient also on epidural pain pump with anesthesia following has been titrating meds accordingly due to continued low blood pressure patient has been receiving large amounts of fluid showing some minimal improvement in blood pressures. Patient is alert and oriented sitting up in the chair and continued on 2 L via nasal cannula. Patient is afebrile and maintained on meropenem along with vancomycin with infectious disease following. Encouraged incentive spirometer use and awaiting follow-up labs. Patient continues with indwelling Jimenez catheter for continued strict intake and output monitoring. PT/OT therapy for evaluation. 10/15/2023 Patient is seen in follow-up today currently sitting up in the chair remains in the ICU with multiple medical consultations following. Patient continues on meropenem along with vancomycin and awaiting cultures. Patient continues with right-sided chest tubes being placed to waterseal. Patient continues on low- dose vasopressin his blood pressures are low. IV fluids being discontinued as chest x-ray shows some pleural effusions. Blood pressures are marginal and will be monitored closely in the ICU. Patient continues on 2-3 L via nasal cannula continues to report shortness of breath although no worse. Patient is having chest wall pain at the chest tube sites and pain medications being adjusted including any oral medications. Patient is afebrile and hemoglobin is stable although trending down but above 7 today. Recommend to monitor closely and transfuse of 7 or less. No reported nausea or vomiting patient tolerating diet needs encouragement with meals. 10/16/2023 Patient is in the MICU. Awake alert and oriented x 3. On 2 L oxygen via nasal cannula. Was able to ambulate in the floyd but still having exertional dyspnea. Also complains of soreness at the chest tube site. Right posterior pleural chest tube was removed today. Still having anterior chest tube draining ser osanguineous fluid.. Patient has been afebrile. Remains on antibiotics in the form of vancomycin and meropenem. No complaints of nausea or vomiting. No cough or sputum production. Pleural fluid culture showed Brevibacterium species on 10/01/2023.. Laboratory test showed WBC 5.1 hemoglobin 7.8 and platelets 185, sodium 132 potassium 3.8 chloride 99 bicarb is 28 BUN 15 and creatinine 0.48 Chest x-ray this morning showed postsurgical changes right hemithorax with [address]. No appreciable pneumothorax. Pleural parenchymal opacities throughout the right side of the chest are fairly similar. Slightly increasing patchy atelectasis or infiltrate at the left base. 10/17/2023 Patient is currently sitting in the chair. Awake alert and oriented x 3. On 2 L oxygen via nasal cannula. Right anterior chest tube in place draining serosanguineous fluid. Pain is controlled with medications. Patient has been afebrile. Chest x-ray today showed similar postsurgical changes and volume loss in the right hemithorax with slightly improving interstitial densities througho ut right lung. Underlying small right effusion. Right-sided chest tube in place. No appreciable pneumothorax. Laboratory data showed WBC 3.6 hemoglobin 7.5 and platelets 217 potassium 3.3 chloride 103 bicarb is 27 BUN 10 and creatinine 0.9 and calcium 7.6. Patient is being continued on antibiotics in the form of vancomycin and meropenem. 10/18/2023 Patient is seen in follow-up this morning continues to be in the ICU. Patient with one remaining chest tube and discussion of possible removal of the other in the next 24-48 hours. Follow-up chest x-ray ordered showing continue po stsurgical right hemothorax redemonstrated with patchy opacification is on the right middle and lower lung slightly improved with a trace of effusion with an ongoing small left effusion with atelectasis. Patient does have incentive spirometer at the bedside and reports has been using very frequently. Patient continues on antibiotics in the form of meropenem and vancomycin with infectious disease following an cultures thus far have been negative. Hemoglobin is stable at 7.8 today and BMP within normal limits. Magnesium slightly low and replacement protocol ordered. Will follow up on repeat labs. 10/19/2023 Patient is seen in follow-up has been transitioned and downgraded from the ICU on 3 south now continues with chest tube and chest x-ray today shows developing left lower lobe infiltrate with small effusion may be present along with a right lobectomy postsurgical changes that remain. Patient to continue with chest tube per CT surgery. Patient having continued shortness of breath maintained on 4 L via nasal cannula and having some bilateral lower extremity swelling and was giv en a dose of IV Lasix today. Sodium is 138 with a potassium of 3.5, BUN is 7 and creatinine is 0.4. Magnesium is 1.6 and will replace per protocol. Patient also continues on breathing inhalational treatments as well as Mucomyst and will continue. Patient has been instructed and encouraged to continue with incentive spirometer at least 10 times every hour while awake. Patient is currently afeb rile and report shortness of breath with chest wall discomfort although denies chest pain or palpitations. Patient is extremely lethargic today and reports has been up and walking and resting frequently. Patient tolerating oral intake with no reported nausea or vomiting. 10/20/2023 Patient is seen in follow-up this morning reporting she feels tired although is easily arousable, alert and oriented 3. Patient appears somewhat uncomfortable in the bed and encourage getting up out of the bed and frequent walking. Patient reports she has been walking and tolerating and does become extremely s hort of breath although recovers. Patient currently maintained on 4 L with continued chest tube as her continues to be a minimal air leak present. CT surgery followed with no plans of removing the tube at this time. Patient encouraged to continue using incentive spirometer at least 10 times every hour while awake. Per nursing staff nightshifts reported some altered mentation or intermittent periods of confusion which is likely multifactorial due to episodes of hypoxia requiring more oxygen as well as possible Flexeril side effect and will hold this for now. Patient is taking a number of pain medications that could contribute and will monitor closely. 10/21/2023 Patient is seen in follow-up this morning appears lethargic and sleeping although arousable. Patient has been having increased episodic periods of confusion and all narcotic medications have been discontinued. Patient continue Toradol and Tylenol for pain. Patient continues with right side chest tube with continued air leak with no plans of removing at this time with CT surgery following. Patient currently on 4 L via nasal cannula reports to shortness of breath. Patient reports has been using incentive spirometer and strongly encouraged to continue using at least 10 times every hour while awake. Patient also to continue with getting up and walking with assistance in getting up out of the bed more frequently. Patient is afebrile 18 and antibiotics with infectious disease following. Recommend daily PT/OT therapy evaluation as patient is significantly weak and has had prolonged hospitalization. Review of Systems Constitutional: Reports of fatigue denied any fever. Cardio vascular: denied any chest pain, palpitations, reports chest wall pain with one chest tube remaining Gastrointestinal: denied any nausea, vomiting, diarrhea Pulmonary: Reports shortness of breath that Worsens with exertion Neurologic denied any new focal deficits All medications were reviewed PHYSICAL EXAMINATION: GENERAL: The patient is alert and oriented x3, having periods of confusion . Well developed, well nourished. Obese HEENT: Pupils are round and equally reacting to light. EOMI. No scleral icterus. No conjunctival pallor. Normocephalic, atraumatic. No pharyngeal erythema. No thyromegaly. CARDIOVASCULAR: S1 and S2 muffled PULMONARY: Diminished breath sounds bilaterally and more so on the right with Crackles in the right lung base. Right thoracotomy tube in place. With serosanguineous output noted ABDOMEN: Soft, nontender, nondistended, normoactive bowel sounds. No palpable organomegaly. MUSCULOSKELETAL: No joint swelling or deformity. EXTREMITIES: No cyanosis, clubbing +1 pitting peripheral edema/ankle edema NEUROLOGICAL: Gross neurological examination did not reveal any focal deficits. Diffusely weak SKIN: No rashes. Assessment: Pneumonia with possible lung abscess, status post bronchoscopy, status post right middle lobe lobectomy on 10/13/2023 Rule out Cavitary lung lesion/pulmonary abscess as well as possible second ovary abscess or cavity necrosis Non-small cell lung cancer status post right upper lobectomy, done on 08/19/2023. 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 The bronchial washings are negative for malignancy and sputum showing gram positive. Repeat sputum culture showing normal hubert. Infectious disease is following Patient is status post right middle lobectomy and continues with 1 right-sided chest tubes showing serosanguineous fluid. Repeat chest x-ray ordered showing some pleural effusions and persistent air leak with no plans of removing the chest tube per CT surgery at this time. Daily chest x-rays are ordered Patient having increased periods of confusion and all narcotics have been discontinued, likely medication effect. We'll continue Tylenol and Toradol and lidocaine patches Continue BENJAMÍN hose and to elevate lower extremities while sitting. Patient continues to have bilateral lower extremity swelling and edema 1+ pitting of the feet and will give a dose of Lasix Continue to encourage incentive spirometer 10 x an hour while awake. Patient is currently maintained on 4-5 L via nasal cannula recommend wean FiO2 as tole rated. Patient requiring more oxygen today reporting increasing shortness of breath with exertion Encouraged Increase activity level. Recommend PT/OT therapy daily. Case management following and will discuss this patient will require ECF Repeat labs pending We'll follow up on repeat labs. Due to multiple complex medical issues, prognosis is guarded The impression and plan of care has been dictated by Pamela Bryant, Nurse Practitioner as directed. Dr. Lavern MD I have performed a history and examination and MDM of this patient, discussed the same with the dictator, and agree with the dictator's assessment and plan as written ,documented as a scribe. Based on total visit time, I have performed more than 50% of the visit. Objective - Vital Signs Vital signs: Vital Signs Temp 97.7 F 10/22/23 03:07 Pulse 107 H 10/22/23 03:07 Resp 22 10/22/23 03:07 BP 124/71 10/22/23 03:07 Pulse Ox 97 10/22/23 03:07 FiO2 35 10/19/23 11:24 Intake & Output 10/21/23 10/21/23 10/22/23 06:59 18:59 06:59 Intake Total 260 20 Output Total 570 110 30 Balance -570 150 -10 Weight 81.8 kg Intake: IV 20 20 Invasive Line 1 20 20 Oral 240 Output: Chest Tube Drainage 70 110 30 R. Chest Tube - A ( 70 110 30 Anterior) Urine 500 Other: Voiding Method Toilet Toilet Toilet # Voids 1 1 1 ABP, PAP, CO, CI - Last Documented Arterial Blood Pressure 81/41 - Labs CBC & Chem 7: 10/21/23 06:59 10/21/23 06:59 Labs: Abnormal Lab Results - Last 24 Hours (Table) 10/21/23 10/21/23 Range/Units 06:59 06:59 RBC 2.84 L (3.80-5.40) m/uL Hgb 8.4 L (11.4-16.0) gm/dL Hct 26.7 L (34.0-46.0) % RDW 15.7 H (11.5-15.5) % Chloride 97 L (98-107) mmol/L Carbon Dioxide 36 H (22-30) mmol/L Creatinine 0.40 L (0.52-1.04) mg/dL Calcium 7.9 L (8.4-10.2) mg/dL Magnesium 1.5 L (1.6-2.3) mg/dL
[2023-10-22] MEDS: PANTOPRAZOLE 40 MG TABLET PO SCH (07:01)
[2023-10-22 08:42] LABS: Basophils % (A) 0 %; Eosinophils # (A) 0.6 k/uL (0-0.7); Eosinophils % (A) 13 %; HCT 26.9 % (34.0-46.0); HGB 8.5 gm/dL (11.4-16.0); Hypochromasia Marked; Lymphocytes # (A) 1.3 k/uL (1.0-4.8); Lymphocytes % (A) 29 %; MCH 29.7 pg (25.0-35.0); MCHC 31.7 g/dL (31.0-37.0); MCV 93.8 fL (80.0-100.0); Mean Platelet Volume 7.2; Monocytes # (A) 0.2 k/uL (0-1.0); Monocytes % (A) 5 %; Neutrophils # (A) 2.2 k/uL (1.3-7.7); Neutrophils % (A) 51 %; Platelet Count 411 k/uL (150-450); RBC 2.86 m/uL (3.80-5.40); RDW 15.8 % (11.5-15.5); WBC 4.4 k/uL (3.8-10.6)
[2023-10-22 08:50] LABS: ALT 24 U/L (4-34); AST 29 U/L (14-36); African American GFR (CKD) >90 (>60 ml/min/1.73 sqM); Albumin 2.5 g/dL (3.5-5.0); Alkaline Phosphatase 147 U/L (38-126); Anion Gap 5 mmol/L; Blood Urea Nitrogen 9 mg/dL (7-17); Calcium 7.9 mg/dL (8.4-10.2); Carbon Dioxide 37 mmol/L (22-30); Chloride 97 mmol/L (98-107); Glucose 91 mg/dL (74-99); Non-African American GFR(CKD) >90 (>60 ml/min/1.73 sqM); Potassium 3.3 mmol/L (3.5-5.1); Sodium 139 mmol/L (137-145); Total Bilirubin 0.3 mg/dL (0.2-1.3); Total Protein 5.4 g/dL (6.3-8.2)
--- NOTE | 2023-10-22 09:10 | XR ---
EXAMINATION TYPE: XR chest 2V DATE OF EXAM: 10/22/2023 6:48 AM CLINICAL INDICATION:Female, 58 years old with history of post lobectomy; [facility] COMPARISON: Chest radiographs from 10/21/2023 TECHNIQUE: XR chest 2V Frontal and lateral views of the chest. FINDINGS: Lungs/Pleura: Moderate pulmonary edema on the right with small right pleural effusion. Small trace angelika cency in the right apex could represent tiny pneumothorax. There is no evidence of pleural effusion, focal consolidation, or pneumothorax. Pulmonary vascularity: Unremarkable. Heart/mediastinum: Cardiomediastinal silhouette is unremarkable. Musculoskeletal: No acute osseous pathology. Other findings: Skin isela are seen along the right chest Left PICC with tip in appropriate position at superior vena cava. IMPRESSION: Stable postsurgical changes with mild right pulmonary edema and right pleural effusion. There may be a small trace right pneumothorax.
[2023-10-22] MEDS: ACETAMINOPHEN TAB 500 MG TAB PO PRN ×3 (09:18→21:24)
[2023-10-22] MEDS: guaiFENesin 600 MG TABLET.ER PO SCH ×2 (09:18→21:24)
[2023-10-22] MEDS: SERTRALINE 50 MG TAB PO SCH (09:20)
[2023-10-22] MEDS: LIDOCAINE 4% PATCH TOPICAL SCH (09:20)
[2023-10-22] MEDS: IPRATROPIUM-ALBUTEROL 3 ML NEB INHALATION SCH ×4 (09:47→21:35)
[2023-10-22] MEDS: ACETYLCYSTEINE 800 MG/4 ML VIAL INHALATION SCH ×3 (09:47→21:36)
[2023-10-22] MEDS: FORMOTEROL FUMARATE 20 MCG/2 ML NEBU INHALATION SCH ×2 (09:47→21:35)
[2023-10-22] MEDS: BUDESONIDE 0.5 MG/2 ML NEBU INHALATION SCH ×2 (09:47→21:35)
[2023-10-22] MEDS ORDERED: POTASSIUM CHLORIDE ER 20 MEQ TAB.ER PO ONE (10:00)
[2023-10-22] MEDS ORDERED: FUROSEMIDE 10 MG/ML 4 ML VIAL IV STA (10:57)
--- NOTE | 2023-10-22 12:43 | P.PN ---
Subjective Progress Note Date: 10/22/23 Principal diagnosis: Necrosis and abscess of right middle lobe, pneumonia with possible lung abscess, small right pleural effusion, residual loculated small anterior upper lung pne umothorax, leukocytosis, normocytic normochromic anemia. History of non-small cell carcinoma with neuroendocrine differentiation, consistent with large cell neuroendocrine carcinoma status post robotic-assisted right upper lobectomy on 08/19/2023 and subsequent bronchoscopy with placement of right thoracostomy tube, chronic tobacco dependence with recent cessation, COPD, asthma, hyperlipidemia, GERD, diverticulitis status post bowel resection, osteoarthritis POD #9 redo thoracotomy, extensive lysis of adhesions, right middle lobectomy, cryoablation of intercostal nerves 3-7 The patient was seen and examined sitting up in a recliner on the cardiac stepdown unit. Patient does complain of pain since narcotics discontinued. Accidentally pulled out her chest tube last night when self transferring from the chair to the bed, lung remains mostly expanded on CXR. Did have some respiratory distress after chest tube pulled, reportedly oxygen saturation dropped into the 80s although this was not documented, oxygen increased to 6 LPM NC with saturations in the mid to high 90s. Attempted to wean oxygen back down, was down to 4 LPM but patient requested oxygen be increased until she "recovers after walking". Currently on 5 L nasal cannula with oxygen saturation in the high 90s, only able to achieve 750 mL on her incentive spirometry. and daughter updated extensively this morning, they are not happy with her care and want her transferred to [facility], all questions have been answered to the best of my ability. Chest x-ray, labs reviewed. Objective - Vital Signs Vital signs: Vital Signs Temp 98.1 F 10/22/23 09:14 Pulse 108 H 10/22/23 10:13 Resp 22 10/22/23 09:23 BP 138/70 10/22/23 09:14 Pulse Ox 92 L 10/22/23 09:23 FiO2 35 10/19/23 11:24 Intake & Output 10/21/23 10/22/23 10/22/23 18:59 06:59 18:59 Intake Total 260 20 10 Output Total 110 30 Balance 150 -10 10 Weight 81.8 kg Intake: IV 20 20 10 Invasive Line 1 20 20 10 Oral 240 Output: Chest Tube Drainage 110 30 R. Chest Tube - A ( 110 30 Anterior) Other: Voiding Method Toilet Toilet # Voids 1 1 ABP, PAP, CO, CI - Last Documented Arterial Blood Pressure 81/41 - Exam CONSTITUTIONAL: Appears comfortable, cooperative RESPIRATORY: Lungs sounds tight. Respirations even, nonlabored. Currently on 5 LPM NC with oxygen saturation 96%. Able to achieve 750 mL on incentive spirometry. Strong cough. CARDIOVASCULAR: S1, S2 present. Regular rate and rhythm, sinus tach on telemetry. Palpable peripheral pulses bilaterally. No edema present. No calf pain or tenderness noted GASTROINTESTINAL: Abdomen soft, nontender, nondistended. Active bowel sounds present 4 quadrants. Tolerating diet, no documented bowel movement since 10/16 GENITOURINARY: Continues to void INTEGUMENTARY: Skin is warm and dry. Thoracic incisions well healed NEUROLOGIC: Cranial nerves II through XII intact MUSKULOSKELETAL: Able to move all extremities, strength equal bilaterally, gait normal PSYCHIATRIC: Alert and oriented to person place and time, appropriate affect, intact judgment and insight - Allied health notes Allied health notes reviewed: nursing - Labs CBC & Chem 7: 10/22/23 08:16 10/22/23 08:16 Labs: Abnormal Lab Results - Last 24 Hours (Table) 10/22/23 10/22/23 Range/Units 08:16 08:16 RBC 2.86 L (3.80-5.40) m/uL Hgb 8.5 L (11.4-16.0) gm/dL Hct 26.9 L (34.0-46.0) % RDW 15.8 H (11.5-15.5) % Potassium 3.3 L (3.5-5.1) mmol/L Chloride 97 L (98-107) mmol/L Carbon Dioxide 37 H (22-30) mmol/L Creatinine 0.40 L (0.52-1.04) mg/dL Calcium 7.9 L (8.4-10.2) mg/dL Alkaline Phosphatase 147 H (38-126) U/L C-Reactive Protein 12.0 H (<1.0) mg/dL Total Protein 5.4 L (6.3-8.2) g/dL Albumin 2.5 L (3.5-5.0) g/dL - Imaging and Cardiology Chest x-ray: report reviewed, image reviewed Assessment and Plan Assessment: Pneumonia with possible lung abscess, status post bronchoscopy and right sided pigtail catheter placement, status post right middle lobectomy Small right pleural effusion, residual loculated small anterior upper lung pneumothorax Leukocytosis, secondary to above Normocytic normochromic anemia Non-small cell carcinoma with neuroendocrine differentiation, consistent with large cell neuroendocrine carcinoma status post robotic-assisted right upper lobectomy on 08/19/2023 and subsequent bronchoscopy with placement of right thoracostomy tube Chronic tobacco dependence with recent cessation COPD, FEV1 87%, DLCO 55% Asthma Hyperlipidemia GERD Diverticulitis status post bowel resection Osteoarthritis Plan: Chest tube accidentally removed last night, follow up CXR reviewed Wean O2 as tolerated. Encourage incentive spirometry 10 times every hour while awake Will continue to update the and he may pass information along to the rest of the family Will monitor daily labs, CXR. May get CT scan of chest today, decision to be made regarding chest tube reinsertion GI/DVT prophylaxis Increase activity as tolerated, out of bed for all meals, ambulate in hallway Pain control per current medication regimen, narcotics discontinued due to family's concern over patient's mentation, encouraged to increase Tylenol use, continue Toradol Reinforced continued smoking cessation Bronchodilator per casual shoe inspector Medical management of other comorbidities per internal medicine, pulmonology, ID More recommendations to follow based on patient's clinical course
--- NOTE | 2023-10-22 13:09 | XR ---
EXAMINATION TYPE: XR chest 1V DATE OF EXAM: 10/22/2023 1:00 PM CLINICAL INDICATION:Female, 58 years old with history of Post chest tube removal/IV lasix; [facility] COMPARISON: Chest radiographs from TECHNIQUE: XR chest 1V Frontal view of the chest. FINDINGS: Lungs/Pleura: Moderate pulmonary edema on the right with small right pleural effusion. Small trace angelika cency in the right apex could represent tiny pneumothorax. There is no evidence of pleural effusion, focal consolidation, or pneumothorax. Pulmonary vascularity: Unremarkable. Heart/mediastinum: Cardiomediastinal silhouette is unremarkable. Musculoskeletal: No acute osseous pathology. Other findings: Skin isela are seen along the right chest Left PICC with tip in appropriate position at superior vena cava. IMPRESSION: No significant change, postsurgical changes with mild right pulmonary edema and right pleural effusio n. There remains a possible small trace right pneumothorax.
--- NOTE | 2023-10-22 13:53 | P.PN ---
Subjective Progress Note Date: 10/22/23 The patient is seen today 10/20/2023 in follow-up on the regular medical floor. She is postoperative #7 of a redo thoracotomy with extensive lysis of adhesions, right middle lobectomy and cryoablation of the intercostal nerves III through VII. She is sitting up in a chair. Awake and alert in no acute distress. Maintaining good O2 saturations in the 90s on 3 L/m per nasal cannula. Afebrile. She continues with a right-sided chest tube in place to pleural VAC and water seal, positive leak with forceful cough. Chest x-ray shows possible developing right pleural effusion and atelectasis. No significant worsening. No plans for bronchoscopy today. She is continued on DuoNeb inhalations, Mucomyst inhalations, Pulmicort and Perforomist inhalations, Mucinex. Heparin for DVT prophylaxis. White count 4.0. Hemoglobin 8.1. Platelets 324. Sodium 138. Potassium 3.7. Bicarb 36. BUN 6. Creatinine 0.40. The patient is seen today 10/21/2023 in follow-up on the selective care unit. She is postoperative day #8. She is sitting up in a chair at the bedside. Awake and alert in no acute distress. She is maintaining good O2 saturations in the mid 90s on 3 L/m per nasal cannula. She's afebrile. Hemodynamically stable. Chest x-ray reveals stable postoperative changes. Scattered subpleural parenchymal opacity of the right lung. No evidence of pneumothorax. Right- sided chest tube remains in place to waterseal. Minimal leak only with forceful coughing. She has been up ambulating with assistance. Only pulling approximately 750 MLS on the incentive spirometer and continues to require increased encouragement to utilize hourly. She is status post 7 units of packed red blood cells, 2 units of fresh frozen plasma, one unit of platelets this admission. White count 5.5. Hemoglobin 8.4. Platelets 393. Sodium 139. Potassium 4.0. Bicarb 36. BUN 7. Creatinine 0.40. Glucose 88. She remains on Mucomyst inhalations, DuoNeb inhalations, Pulmicort and Perforomist inhalations, Mucinex. Heparin for DVT prophylaxis. The patient is seen today 10/22/2023 in follow-up on the selective care unit. Postoperative day #9. She is resting in bed. Awake and alert in no acute distress. Unfortunately she had inadvertently pulled out her chest tube evening. This x-ray reveals evidence of postsurgical changes in the right lung with mild right pulmonary edema and right pleural effusion. No significant pneumothorax. White count 4.4. Hemoglobin 8.5. Platelets 411. Sodium 139. Potassium 3.3. Bicarb 37. BUN 9. Creatinine 0.40. C-reactive protein 12.0. Pro calcitonin 0.09. She remains on bronchodilators. Heparin for DVT prophylaxis. Completed a course of antibiotics. Objective - Vital Signs Vital signs: Vital Signs Temp 98.4 F 10/22/23 11:11 Pulse 104 H 10/22/23 12:47 Resp 18 10/22/23 11:11 BP 143/85 10/22/23 11:11 Pulse Ox 99 10/22/23 11:11 FiO2 35 10/19/23 11:24 Intake & Output 10/21/23 10/22/23 10/22/23 18:59 06:59 18:59 Intake Total 260 20 10 Output Total 110 30 300 Balance 150 -10 -290 Weight 81.8 kg Intake: IV 20 20 10 Invasive Line 1 20 20 10 Oral 240 Output: Chest Tube Drainage 110 30 R. Chest Tube - A ( 110 30 Anterior) Urine 300 Other: Voiding Method Toilet Toilet Bedside Commode # Voids 1 1 ABP, PAP, CO, CI - Last Documented Arterial Blood Pressure 81/41 - Exam GENERAL EXAM: Alert, 58-year-old female, resting in bed, on 4 L nasal cannula, in no apparent distress. HEAD: Normocephalic. EYES: Normal reaction of pupils, equal size. NOSE: Clear with pink turbinates. THROAT: No erythema or exudates. NECK: No masses, no JVD. CHEST: No chest wall deformity. Right-sided chest tube inadvertently removed by the patient LUNGS: Equal air entry with crackles in the right lung base, diminished. CVS: S1 and S2 normal with no audible murmur, regular rhythm. ABDOMEN: No hepatosplenomegaly, normal bowel sounds, no guarding or rigidity. SPINE: No scoliosis or deformity SKIN: No rashes CENTRAL NERVOUS SYSTEM: No focal deficits, tone is normal in all 4 extremities. EXTREMITIES: There is no peripheral edema. No clubbing, no cyanosis. Peripheral pulses are intact. - Labs CBC & Chem 7: 10/22/23 08:16 10/22/23 08:16 Labs: Abnormal Lab Results - Last 24 Hours (Table) 10/22/23 10/22/23 Range/Units 08:16 08:16 RBC 2.86 L (3.80-5.40) m/uL Hgb 8.5 L (11.4-16.0) gm/dL Hct 26.9 L (34.0-46.0) % RDW 15.8 H (11.5-15.5) % Potassium 3.3 L (3.5-5.1) mmol/L Chloride 97 L (98-107) mmol/L Carbon Dioxide 37 H (22-30) mmol/L Creatinine 0.40 L (0.52-1.04) mg/dL Calcium 7.9 L (8.4-10.2) mg/dL Alkaline Phosphatase 147 H (38-126) U/L C-Reactive Protein 12.0 H (<1.0) mg/dL Total Protein 5.4 L (6.3-8.2) g/dL Albumin 2.5 L (3.5-5.0) g/dL Assessment and Plan Assessment: Non-small cell lung cancer status post right upper lobectomy, done on 08/19/2023. Two regional hilar lymph nodes were positive for metastasis. No other lymph nodes involved. Post-operative hospital stay was complicated by persistent residual right apical pneumothorax. During this current hospit alization, she did have a follow-up bronchoscopy with BAL done on 08/31/2023, which did not isolate any bacterial organisims. Right pleural fluid culture is showing brevibacterium species Likely secondary lung abscess, A CT of the chest 09/28/2023 demonstrated focal severe consolidation of the right upper lobe measuring 7.7 cm with what appears to be a fluid density concerning for pulmonary abscess. There is an adjacent residual loculated small anterior upper lung pneumothorax measuring 4.5 cm. There is a possible second pulmonary abscess or cavitary necrosis with air-fluid level anterior right mid lung measuring 9.2 x 8.2 x 7.4 cm. Status post bronchoscopy and status post pigtail catheter placement into the lung abscess. Pleural fluid culture positive for gram positive bacilli/brevibacterium species. Completed vancomycin and completed aztreonam. Follow-up computed tomography scan 10/07/2023 continues to show a residual lung abscess measuring approximate 6.0 x 5.0 cm, previously 8.2 x 7.4 cm's. On 10/13/2023 she had undergone a redo thoracotomy, extensive lysis of adhesions, right middle lobectomy, cryoablation of intracostal nerves III through VII. Postoperative day #9. Residual right apical loculated pneumothorax, as described above Normocytic normochromic anemia, without any obvious blood loss Chronic obstructive pulmonary disease, with a FEV1 53% of predicted, stable. Former tobacco dependence History of asthma Hyperlipidemia Esophageal reflux disease History of diverticulitis status post bowel resection Osteoarthritis Plan: The patient was seen and evaluated Chest x-rays, labs and medications reviewed Pigtail catheter inadvertently removed by the patient last evening Follow-up chest x-ray does not reveal any significant pneumothorax Encouraged the increased use of the incentive spirometer Increase her activity as tolerated Titrate the FiO2 as tolerated We will continue to follow I have personally seen and examined the patient, performed the documentation and the assessment and plan as written. Number of minutes spent on the visit: 10.
--- NOTE | 2023-10-22 16:00 | P.PN ---
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 the patient is status post robotic assisted right upper lobectomy on 08/19/2023, now presented to hospital with persistent cough shortness of breath did have a low-grade fever abnormal CT suspicious for possible pneumonia/lung abscess, the patient is status post bronchoscopy by pulmonary and patient also have a pigtail catheter placed in by IR, subsequently Patient is status post redo thoracotomy with lysis of adhesion and right middle lobectomy completed on 10/13/2023 Has been asked by pulmonary for evaluation as of 10/21/2023 On today's evaluation that is 10/22/2023 the patient remains to be afebrile, still complaining of shortness of breath on minimal exertion and the patient is currently on 5 L nasal cannula oxygen patient has any worsening chest pain, the patient chest tube did fell off this morning, the patient denies having any nausea no vomiting no abdominal pain and no diarrhea. Patient did have white count of 4.4, creatinine 0.40, procalcitonin 0.09 chest x-ray postsurgical changes with mild right pulmonary edema and right pleural effusion trace right pneumothorax Objective - Vital Signs Vital signs: Vital Signs Temp 98.1 F 10/22/23 09:14 Pulse 108 H 10/22/23 10:13 Resp 22 10/22/23 09:23 BP 138/70 10/22/23 09:14 Pulse Ox 92 L 10/22/23 09:23 FiO2 35 10/19/23 11:24 Intake & Output 10/21/23 10/22/23 10/22/23 18:59 06:59 18:59 Intake Total 260 20 10 Output Total 110 30 Balance 150 -10 10 Weight 81.8 kg Intake: IV 20 20 10 Invasive Line 1 20 20 10 Oral 240 Output: Chest Tube Drainage 110 30 R. Chest Tube - A ( 110 30 Anterior) Other: Voiding Method Toilet Toilet # Voids 1 1 ABP, PAP, CO, CI - Last Documented Arterial Blood Pressure 81/41 - Exam GENERAL DESCRIPTION: A middle-age female up in bed in no distress RESPIRATORY SYSTEM: Unlabored breathing , decreased breath sounds at the base HEART: S1 S2 regular rate and rhythm , ABDOMEN: Soft , no tenderness EXTREMITIES: No edema feet - Labs CBC & Chem 7: 10/22/23 08:16 10/22/23 08:16 Labs: Abnormal Lab Results - Last 24 Hours (Table) 10/22/23 10/22/23 Range/Units 08:16 08:16 RBC 2.86 L (3.80-5.40) m/uL Hgb 8.5 L (11.4-16.0) gm/dL Hct 26.9 L (34.0-46.0) % RDW 15.8 H (11.5-15.5) % Potassium 3.3 L (3.5-5.1) mmol/L Chloride 97 L (98-107) mmol/L Carbon Dioxide 37 H (22-30) mmol/L Creatinine 0.40 L (0.52-1.04) mg/dL Calcium 7.9 L (8.4-10.2) mg/dL Alkaline Phosphatase 147 H (38-126) U/L C-Reactive Protein 12.0 H (<1.0) mg/dL Total Protein 5.4 L (6.3-8.2) g/dL Albumin 2.5 L (3.5-5.0) g/dL Assessment and Plan (1) Pneumonia Current Visit: Yes Status: Acute Code(s): J18.9 - PNEUMONIA, UNSPECIFIED ORGANISM SNOMED Code(s): 397460295 (2) Allergy to multiple antibiotics Current Visit: Yes Status: Acute Code(s): Z88.1 - ALLERGY STATUS TO OTHER ANTIBIOTIC AGENTS SNOMED Code(s): 138000217 (3) Lung abscess Current Visit: Yes Status: Acute Code(s): J85.2 - ABSCESS OF LUNG WITHOUT PNEUMONIA SNOMED Code(s): 80347166 Plan: 1patient presented to hospital with sepsis in this patient who did have a fever tachycardia hypoxemia elevated white count source is unlikely pneumonia with question of possible abscess/empyema in this patient with recent surgery ,patient is status post bronchoscopy lavage and also have placement of a pigtail catheter by IR , pleural fluid cultures grew Brevibacterium species,patient subsequently status post right middle lobe lobectomy on 10/13/2023 and post op noticed to have slight worsening of the white count and hypotension , concerning for possible sepsis related to it, patient did have a repeat culture which has been negative so far,and the patient completed almost 3 course of IV antibiotic therapy antibiotic was subsequently discontinued by CT surgery on 10/19/2023 2patient with the penicillin and cephalosporin allergy that would limit the number of antibiotics safe to use and the patient completed almost 3 course of IV antibiotic therapy 3-Patient remains to be afebrile, the patient have normal white count and did have a normal procalcitonin, we will monitor the patient closely off antibiotic therapy, multiple questions concern answered possible transfer to [facility] as per CT surgery note Dictation was produced using [employer] dictation software. please excuse any grammatical, word or spelling errors. Time with Patient: Less than 30
[2023-10-22] MEDS: SENNOSIDES-DOCUSATE SODIUM 1 EACH TAB PO SCH (21:24)
[2023-10-22] MEDS: TEMAZEPAM 7.5 MG CAP PO PRN (22:06)
--- NOTE | 2023-10-23 04:28 | P.PN ---
Subjective Progress Note Date: 10/22/23 Patient evaluated on medical floor. Pigtail catheter remains in place with 20 mls of output documented overnight. Patient continues with productive cough brown tinged sputum and repeat sputum culture has been sent and pending at this time. Chest xray today reveals cavitation vs. pneumothorax right apex. Small effusion may be present. Bronchial washings reveal inflammation, negative for diagnostic malignancy. Patient does have known NSCLC. Remains on IV aztreonam and IV vancomycin. Procalcitonin level 0.15. 10/06/2023 Patient evaluated sitting up in bed. No drainage noted from atrium overnight. P igtail catheter remains n place. Chest xray today reveals stable appearance right lung with pneumothorax vs. cavitation apex. Small effusion may be present. Repeat sputum culture final showing normal hubert. The pleural fluid is finalized showing brevibacterium species. 10/07/2023 Patient is evaluated today sitting up in bed. Legs are swollen, patient has been receiving IV fluids which will be stopped. IV lasix x 1 will be given and recommending SCDs for this. Edema is non pitting. Patient had chest xray this AM showing possible loculated pneumothorax vs. cavitary process. Subpulmonic right basilar effusion. The left lung is clear. Pigtail catheter remains in place again minimal to no drainage overnight. CT following closely. Repeat sputum showing normal hubert. Remains on IV antibiotics. Patient remains on room air. 10/08/[address] yesterday showing residual lung abscess with significant fluid content remaining. Thickening of the right pectoralis major muscle with s ome air and possibly fluid within and may relate to developing infection in this location. Pigtail catheter remains in place. Bilateral pleural effusions. Small left and moderate right pleural effusion. Sodium 139, renal function stable. 10/09/2023 Patient evaluated today sitting up in bed. Lower extremity edema is improved after a second dose of IV lasix, remains off fluids she is eating and drinking well. BENJAMÍN hose to be applied today should help with the swelling as well. Patient continues with the pigtail catheter which has had minimal drainage over the last 2 days. Patient will be going for thoracotomy and right middle lobectomy on Wednesday. Patient remains on IV vancomycin per ID and PICC line is in place. 10/10/2023 Patient evaluated today sitting up in bed. Remains on 2L of oxygen. Lower extremity edema improved. Continues on IV vancomycin. Pending repeat chest xray reports. Cardiothoracic following closely patient will go for right middle lobectomy and thoracotomy on Wednesday. 10/13/2023 Patient is seen in follow-up this morning currently nothing by mouth as she is scheduled to undergo thoracotomy with right middle lobectomy with CT surgery. Pulmonary following closely patient continues on 2 L of oxygen along with antibiotics. Plan is for going to ICU postop and will await surgical report. Patient is sitting up with multiple family members at bedside with questions and concerns were answered to the best of our ability. Patient is currently afebrile with no reports of worsening shortness of breath. Patient denies any nausea or vomiting and currently nothing by mouth for the procedure. 10/14/2023 Patient is seen in follow-up in the ICU status post right middle lobectomy with CT surgery yesterday. Patient with multiple medical consultations following continues on low-dose pressor support for hypotension. Patient also on epidural pain pump with anesthesia following has been titrating meds accordingly due to continued low blood pressure patient has been receiving large amounts of fluid showing some minimal improvement in blood pressures. Patient is alert and oriented sitting up in the chair and continued on 2 L via nasal cannula. Patient is afebrile and maintained on meropenem along with vancomycin with infectious disease following. Encouraged incentive spirometer use and awaiting follow-up labs. Patient continues with indwelling Jimenez catheter for continued strict intake and output monitoring. PT/OT therapy for evaluation. 10/15/2023 Patient is seen in follow-up today currently sitting up in the chair remains in the ICU with multiple medical consultations following. Patient continues on meropenem along with vancomycin and awaiting cultures. Patient continues with right-sided chest tubes being placed to waterseal. Patient continues on low- dose vasopressin his blood pressures are low. IV fluids being discontinued as chest x-ray shows some pleural effusions. Blood pressures are marginal and will be monitored closely in the ICU. Patient continues on 2-3 L via nasal cannula continues to report shortness of breath although no worse. Patient is having chest wall pain at the chest tube sites and pain medications being adjusted including any oral medications. Patient is afebrile and hemoglobin is stable although trending down but above 7 today. Recommend to monitor closely and transfuse of 7 or less. No reported nausea or vomiting patient tolerating diet needs encouragement with meals. 10/16/2023 Patient is in the MICU. Awake alert and oriented x 3. On 2 L oxygen via nasal cannula. Was able to ambulate in the floyd but still having exertional dyspnea. Also complains of soreness at the chest tube site. Right posterior pleural chest tube was removed today. Still having anterior chest tube draining ser osanguineous fluid.. Patient has been afebrile. Remains on antibiotics in the form of vancomycin and meropenem. No complaints of nausea or vomiting. No cough or sputum production. Pleural fluid culture showed Brevibacterium species on 10/01/2023.. Laboratory test showed WBC 5.1 hemoglobin 7.8 and platelets 185, sodium 132 potassium 3.8 chloride 99 bicarb is 28 BUN 15 and creatinine 0.48 Chest x-ray this morning showed postsurgical changes right hemithorax with [address]. No appreciable pneumothorax. Pleural parenchymal opacities throughout the right side of the chest are fairly similar. Slightly increasing patchy atelectasis or infiltrate at the left base. 10/17/2023 Patient is currently sitting in the chair. Awake alert and oriented x 3. On 2 L oxygen via nasal cannula. Right anterior chest tube in place draining serosanguineous fluid. Pain is controlled with medications. Patient has been afebrile. Chest x-ray today showed similar postsurgical changes and volume loss in the right hemithorax with slightly improving interstitial densities througho ut right lung. Underlying small right effusion. Right-sided chest tube in place. No appreciable pneumothorax. Laboratory data showed WBC 3.6 hemoglobin 7.5 and platelets 217 potassium 3.3 chloride 103 bicarb is 27 BUN 10 and creatinine 0.9 and calcium 7.6. Patient is being continued on antibiotics in the form of vancomycin and meropenem. 10/18/2023 Patient is seen in follow-up this morning continues to be in the ICU. Patient with one remaining chest tube and discussion of possible removal of the other in the next 24-48 hours. Follow-up chest x-ray ordered showing continue po stsurgical right hemothorax redemonstrated with patchy opacification is on the right middle and lower lung slightly improved with a trace of effusion with an ongoing small left effusion with atelectasis. Patient does have incentive spirometer at the bedside and reports has been using very frequently. Patient continues on antibiotics in the form of meropenem and vancomycin with infectious disease following an cultures thus far have been negative. Hemoglobin is stable at 7.8 today and BMP within normal limits. Magnesium slightly low and replacement protocol ordered. Will follow up on repeat labs. 10/19/2023 Patient is seen in follow-up has been transitioned and downgraded from the ICU on 3 south now continues with chest tube and chest x-ray today shows developing left lower lobe infiltrate with small effusion may be present along with a right lobectomy postsurgical changes that remain. Patient to continue with chest tube per CT surgery. Patient having continued shortness of breath maintained on 4 L via nasal cannula and having some bilateral lower extremity swelling and was giv en a dose of IV Lasix today. Sodium is 138 with a potassium of 3.5, BUN is 7 and creatinine is 0.4. Magnesium is 1.6 and will replace per protocol. Patient also continues on breathing inhalational treatments as well as Mucomyst and will continue. Patient has been instructed and encouraged to continue with incentive spirometer at least 10 times every hour while awake. Patient is currently afeb rile and report shortness of breath with chest wall discomfort although denies chest pain or palpitations. Patient is extremely lethargic today and reports has been up and walking and resting frequently. Patient tolerating oral intake with no reported nausea or vomiting. 10/20/2023 Patient is seen in follow-up this morning reporting she feels tired although is easily arousable, alert and oriented 3. Patient appears somewhat uncomfortable in the bed and encourage getting up out of the bed and frequent walking. Patient reports she has been walking and tolerating and does become extremely s hort of breath although recovers. Patient currently maintained on 4 L with continued chest tube as her continues to be a minimal air leak present. CT surgery followed with no plans of removing the tube at this time. Patient encouraged to continue using incentive spirometer at least 10 times every hour while awake. Per nursing staff nightshifts reported some altered mentation or intermittent periods of confusion which is likely multifactorial due to episodes of hypoxia requiring more oxygen as well as possible Flexeril side effect and will hold this for now. Patient is taking a number of pain medications that could contribute and will monitor closely. 10/21/2023 Patient is seen in follow-up this morning appears lethargic and sleeping although arousable. Patient has been having increased episodic periods of confusion and all narcotic medications have been discontinued. Patient continue Toradol and Tylenol for pain. Patient continues with right side chest tube with continued air leak with no plans of removing at this time with CT surgery following. Patient currently on 4 L via nasal cannula reports to shortness of breath. Patient reports has been using incentive spirometer and strongly encouraged to continue using at least 10 times every hour while awake. Patient also to continue with getting up and walking with assistance in getting up out of the bed more frequently. Patient is afebrile 18 and antibiotics with infectious disease following. Recommend daily PT/OT therapy evaluation as patient is significantly weak and has had prolonged hospitalization. 10/22/2023 Patient is seen and evaluated in follow-up this morning currently sitting up in the chair. Patient has been intermittently lethargic throughout most of the days and has been instructed to get up out of the bed and sit in the chair with windows and shades open and staying awake throughout most of the day as patient family reports has not been sleeping very well. Patient requesting something for sleep. Narcotics have been discontinued as patient was having increased confusion and forgetfulness. Multiple medical consultations following including CT surgery as well as pulmonary and infectious disease. Antibiotics have been discontinued and patient is being closely monitored antibiotic therapy. Patient apparently was transitioning from the chair to the bed and inadvertently pulled her chest tube out. Follow-up x-rays have been performed with no sizable pneumothorax noted. No plans for chest tube replacement at this time. Patient continued on 5 L via nasal cannula and recommended weaning as tolerated. Continue incentive spirometer and continued physical therapy. Per nursing staff patient family was requesting a transfer to [place] as they feel the treatment here is inadequate. Discussed with the patient in detail at bedside that there are no plans for transfer at this time the patient would need to consider leaving AGAINST MEDICAL ADVICE if wanting to go to [place]. Review of Systems Constitutional: Reports of fatigue denied any fever. Reports having difficulty in sleeping Cardio vascular: denied any chest pain, palpitations, reports chest wall pain Gastrointestinal: denied any nausea, vomiting, diarrhea Pulmonary: Reports shortness of breath that Worsens with exertion, reports no worse Neurologic denied any new focal deficits, reports generalized weakness All medications were reviewed PHYSICAL EXAMINATION: GENERAL: The patient is alert and oriented x3, having periods of confusion although appears more alert today. Well developed, well nourished. Obese HEENT: Pupils are round and equally reacting to light. EOMI. No scleral icterus. No conjunctival pallor. Normocephalic, atraumatic. No pharyngeal erythema. No thyromegaly. CARDIOVASCULAR: S1 and S2 muffled PULMONARY: Diminished breath sounds bilaterally and more so on the right with Crackles in the right lung base. ABDOMEN: Soft, nontender, nondistended, normoactive bowel sounds. No palpable organomegaly. MUSCULOSKELETAL: No joint swelling or deformity. EXTREMITIES: No cyanosis, clubbing +1 pitting peripheral edema/ankle edema NEUROLOGICAL: Gross neurological examination did not reveal any focal deficits. Diffusely weak SKIN: No rashes. Assessment: Pneumonia with possible lung abscess, status post bronchoscopy, status post right middle lobe lobectomy on 10/13/2023 Rule out Cavitary lung lesion/pulmonary abscess as well as possible second ovary abscess or cavity necrosis Non-small cell lung cancer status post right upper lobectomy, done on 08/19/2023. 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 The bronchial washings are negative for malignancy and sputum showing gram positive. Repeat sputum culture showing normal hubert. Infectious disease is following and has discontinued antibiotics patient is being closely monitored off antibiotic therapy Patient is status post right middle lobectomy and reportedly was transitioning from the chair back to the bed and pulled the right chest tube. Evaluated by CT surgery recommending follow-up chest x-rays and no sizable pneumothorax noted with no plans of placing the chest tube at this time. Will follow-up on chest x-rays Patient having increased periods of confusion and all narcotics have been discontinued, likely medication effect. Mentation improved today. We'll continue Tylenol and Toradol and lidocaine patches. Per CT surgery patient also had cryoablation done on the nerves and reports would not require IV narcotics Continue BENJAMÍN hose and to elevate lower extremities while sitting. Patient continues to have bilateral lower extremity swelling and edema 1+ pitting of the feet and was given a dose of Lasix again today. Continue to encourage incentive spirometer 10 x an hour while awake. Patient is currently maintained on 5 L via nasal cannula recommend wean FiO2 as tolerated. Patient continues to report increasing shortness of breath with exertion Encouraged Increase activity level. Recommend PT/OT therapy daily. Case ana wills following and will discuss this patient will require ECF Repeat labs pending We'll follow up on repeat labs. Replace potassium and electrolytes per protocol Due to multiple complex medical issues, prognosis is guarded Nursing staff reported patient would like transfer to [place]'s family feels she is not receiving adequate care. Discussed with the patient at length who is alert and oriented 3 at the time of exam that patient would be required to leave AGAINST MEDICAL ADVICE in order to go to [place] as there is no need for transfer at this time. The impression and plan of care has been dictated by Pamela Bryant, Nurse Practitioner as directed. Dr. Lavern MD I have performed a history and examination and MDM of this patient, discussed the same with the dictator, and agree with the dictator's assessment and plan as written ,documented as a scribe. Based on total visit time, I have performed more than 50% of the visit. Objective - Vital Signs Vital signs: Vital Signs Temp 97.7 F 10/22/23 23:25 Pulse 111 H 10/23/23 02:00 Resp 20 10/22/23 23:25 BP 138/69 10/22/23 23:25 Pulse Ox 95 10/22/23 23:25 FiO2 35 10/19/23 11:24 Intake & Output 10/22/23 10/22/23 10/23/23 06:59 18:59 06:59 Intake Total 20 10 10 Output Total 30 300 Balance -10 -290 10 Intake: IV 20 10 10 Invasive Line 1 20 10 10 Output: Chest Tube Drainage 30 R. Chest Tube - A ( 30 Anterior) Urine 300 Other: Voiding Method Toilet Bedside Commode Toilet # Voids 1 3 1 # Bowel Movements 1 ABP, PAP, CO, CI - Last Documented Arterial Blood Pressure 81/41 - Labs CBC & Chem 7: 10/22/23 08:16 10/22/23 08:16 Labs: Abnormal Lab Results - Last 24 Hours (Table) 10/22/23 10/22/23 Range/Units 08:16 08:16 RBC 2.86 L (3.80-5.40) m/uL Hgb 8.5 L (11.4-16.0) gm/dL Hct 26.9 L (34.0-46.0) % RDW 15.8 H (11.5-15.5) % Potassium 3.3 L (3.5-5.1) mmol/L Chloride 97 L (98-107) mmol/L Carbon Dioxide 37 H (22-30) mmol/L Creatinine 0.40 L (0.52-1.04) mg/dL Calcium 7.9 L (8.4-10.2) mg/dL Alkaline Phosphatase 147 H (38-126) U/L C-Reactive Protein 12.0 H (<1.0) mg/dL Total Protein 5.4 L (6.3-8.2) g/dL Albumin 2.5 L (3.5-5.0) g/dL
[2023-10-23] MEDS: KETOROLAC 15 MG/ML 1 ML VIAL IVP SCH ×2 (05:46→11:29)
[2023-10-23] MEDS: PANTOPRAZOLE 40 MG TABLET PO SCH (05:46)
[2023-10-23] MEDS: ACETAMINOPHEN TAB 500 MG TAB PO PRN ×3 (07:05→23:43)
[2023-10-23] MEDS: IPRATROPIUM-ALBUTEROL 3 ML NEB INHALATION SCH ×4 (07:24→20:00)
[2023-10-23] MEDS: ACETYLCYSTEINE 800 MG/4 ML VIAL INHALATION SCH ×3 (07:24→20:00)
[2023-10-23] MEDS: FORMOTEROL FUMARATE 20 MCG/2 ML NEBU INHALATION SCH ×3 (07:24→20:44)
[2023-10-23] MEDS: BUDESONIDE 0.5 MG/2 ML NEBU INHALATION SCH ×2 (07:24→20:00)
--- NOTE | 2023-10-23 08:21 | XR ---
EXAMINATION TYPE: XR chest 2V DATE OF EXAM: 10/23/2023 7:22 AM CLINICAL INDICATION:Female, 58 years old with history of post lobectomy; [facility] COMPARISON: Chest radiograph from one day prior. TECHNIQUE: XR chest 2V Frontal and lateral views of the chest. FINDINGS: Lungs/Pleura: There is pulmonary edema on the right with small right pleural effusion. [facility] trace righ t pneumothorax. There is no evidence of pleural effusion, focal consolidation, or left pneumothorax. Pulmonary vascularity: Unremarkable. Heart/mediastinum: Cardiomediastinal silhouette is unremarkable. Musculoskeletal: No acute osseous pathology. Other findings: Skin isela along the right chest wall. IMPRESSION: Similar Postsurgical changes of right-sided lobectomy with pulmonary edema and small pleural effusion . There may be a trace right pneumothorax.
[2023-10-23 09:26] LABS: Anisocytosis Slight; Basophils % (A) 0 %; Eosinophils # (A) 0.4 k/uL (0-0.7); Eosinophils % (A) 7 %; HCT 28.5 % (34.0-46.0); HGB 8.8 gm/dL (11.4-16.0); Hypochromasia Marked; Lymphocytes # (A) 1.3 k/uL (1.0-4.8); Lymphocytes % (A) 21 %; MCH 29.1 pg (25.0-35.0); MCV 94.1 fL (80.0-100.0); Mean Platelet Volume 7.5; Monocytes # (A) 0.3 k/uL (0-1.0); Monocytes % (A) 4 %; Neutrophils # (A) 4.1 k/uL (1.3-7.7); Neutrophils % (A) 66 %; Platelet Count 427 k/uL (150-450); RBC 3.03 m/uL (3.80-5.40); RDW 16.2 % (11.5-15.5); WBC 6.3 k/uL (3.8-10.6)
[2023-10-23] MEDS: SERTRALINE 50 MG TAB PO SCH (09:28)
[2023-10-23] MEDS: HEPARIN SODIUM,PORCINE 5,000 UNIT/ML 1 ML VIAL SQ SCH ×3 (09:28→23:43)
[2023-10-23] MEDS: LIDOCAINE 4% PATCH TOPICAL SCH (09:28)
[2023-10-23] MEDS: guaiFENesin 600 MG TABLET.ER PO SCH ×2 (09:28→19:54)
[2023-10-23 09:45] LABS: African American GFR (CKD) >90 (>60 ml/min/1.73 sqM); Anion Gap 5 mmol/L; Blood Urea Nitrogen 8 mg/dL (7-17); Calcium 8.1 mg/dL (8.4-10.2); Carbon Dioxide 35 mmol/L (22-30); Chloride 99 mmol/L (98-107); Glucose 103 mg/dL (74-99); Non-African American GFR(CKD) >90 (>60 ml/min/1.73 sqM); Potassium 3.8 mmol/L (3.5-5.1); Sodium 139 mmol/L (137-145)
[2023-10-23] MEDS ORDERED: FUROSEMIDE 10 MG/ML 4 ML VIAL IV STA (10:26)
--- NOTE | 2023-10-23 10:29 | P.PN ---
Subjective Progress Note Date: 10/23/23 Principal diagnosis: Necrosis and abscess of right middle lobe, pneumonia with possible lung abscess, small right pleural effusion, residual loculated small anterior upper lung pne umothorax, leukocytosis, normocytic normochromic anemia. History of non-small cell carcinoma with neuroendocrine differentiation, consistent with large cell neuroendocrine carcinoma status post robotic-assisted right upper lobectomy on 08/19/2023 and subsequent bronchoscopy with placement of right thoracostomy tube, chronic tobacco dependence with recent cessation, COPD, asthma, hyperlipidemia, GERD, diverticulitis status post bowel resection, osteoarthritis POD #10 redo thoracotomy, extensive lysis of adhesions, right middle lobectomy, cryoablation of intercostal nerves 3-7 The patient was seen and examined with Dr. Espino sitting up in a recliner on the cardiac stepdown unit in no acute distress. Patient does complain of pain since narcotics discontinued although states to me that it is tolerable. Accidentally pulled out her chest tube 2 nights ago when self transferring from the chair to the bed, lung remains expanded on multiple follow up CXRs. Oxygen saturation remains in the mid 90s on 3-4 LPM NC. Had discussion with [facility] this morning about oxygen being used for hypoxemia not shortness of breath, and that it is inappropriate to ask the nurses to turn up oxygen when her saturations are acceptable just because she is short of breath. Some shortness of breath is expected after double lobectomy/lung cancer/infection, and will take time for her to recover. and daughter updated extensively yesterday, they are not happy with her care and want her transferred to [facility]. It was explained to the patient and her daughter as well as her yesterday that there is no medical necessity for transfer to a tertiary care center, that she is receiving appropriate care in this facility. Outcomes have been achieved specifically her lung cancer has been surgically removed, her infection is clearing as her infection markers are all decreased and remain that way off antibiotics, her remaining lung remains expanded and there is no need for chest tube re-insertion. At this point she needs to recover, increase her strength and nutrition, and she will need to go home on some oxygen. We also reinforced the need to continue to use her incentive spirometry often. This was again reinforced this morning by Dr. Espino with the patient. Chest x-ray, labs reviewed. No other new concerns. Objective - Vital Signs Vital signs: Vital Signs Temp 98.0 F 10/23/23 05:00 Pulse 100 10/23/23 07:50 Resp 20 10/23/23 05:00 BP 149/85 10/23/23 05:00 Pulse Ox 95 10/23/23 07:24 FiO2 35 10/19/23 11:24 Intake & Output 10/22/23 10/23/23 10/23/23 18:59 06:59 18:59 Intake Total 10 10 414 Output Total 300 Balance -290 10 414 Intake: IV 10 10 Invasive Line 1 10 10 Oral 414 Output: Urine 300 Other: Voiding Method Bedside Commode Toilet # Voids 3 1 1 # Bowel Movements 1 1 ABP, PAP, CO, CI - Last Documented Arterial Blood Pressure 81/41 - Exam CONSTITUTIONAL: Appears comfortable, cooperative RESPIRATORY: Lungs sounds tight. Respirations even, nonlabored. Currently on 3 LPM NC with oxygen saturation 95%. Able to achieve 750 mL on incentive spirometry. Strong cough. CARDIOVASCULAR: S1, S2 present. Regular rate and rhythm, sinus tach on telemetry. Palpable peripheral pulses bilaterally. Bilateral lower extremity edema present, patient refuses antiembolism stockings. No calf pain or tenderness noted GASTROINTESTINAL: Abdomen soft, nontender, nondistended. Active bowel sounds present 4 quadrants. Tolerating diet, positive bowel movement 10/23 GENITOURINARY: Continues to void INTEGUMENTARY: Skin is warm and dry. Thoracic incisions well healed NEUROLOGIC: Cranial nerves II through XII intact MUSKULOSKELETAL: Able to move all extremities, strength equal bilaterally, gait normal PSYCHIATRIC: Alert and oriented to person place and time, appropriate affect, intact judgment and insight - Allied health notes Allied health notes reviewed: nursing - Labs CBC & Chem 7: 10/23/23 08:56 10/23/23 08:56 Labs: Abnormal Lab Results - Last 24 Hours (Table) 10/23/23 10/23/23 Range/Units 08:56 08:56 RBC 3.03 L (3.80-5.40) m/uL Hgb 8.8 L (11.4-16.0) gm/dL Hct 28.5 L (34.0-46.0) % RDW 16.2 H (11.5-15.5) % Carbon Dioxide 35 H (22-30) mmol/L Creatinine 0.42 L (0.52-1.04) mg/dL Glucose 103 H (74-99) mg/dL Calcium 8.1 L (8.4-10.2) mg/dL Microbiology - Last 24 Hours (Table) 10/22/23 16:34 Gram Stain - Preliminary Sputum - Imaging and Cardiology Chest x-ray: report reviewed, image reviewed Assessment and Plan Assessment: Pneumonia with possible lung abscess, status post bronchoscopy and right sided pigtail catheter placement, status post right middle lobectomy Small right pleural effusion, residual loculated small anterior upper lung pneumothorax Leukocytosis, secondary to above Normocytic normochromic anemia Non-small cell carcinoma with neuroendocrine differentiation, consistent with large cell neuroendocrine carcinoma status post robotic-assisted right upper lobectomy on 08/19/2023 and subsequent bronchoscopy with placement of right thoracostomy tube Chronic tobacco dependence with recent cessation COPD, FEV1 87%, DLCO 55% Asthma Hyperlipidemia GERD Diverticulitis status post bowel resection Osteoarthritis Plan: Wean O2 as tolerated. Encourage incentive spirometry 10 times every hour while awake GI/DVT prophylaxis Increase activity as tolerated, out of bed for all meals, ambulate in hallway Pain control per current medication regimen, continue Toradol/Tylenol Reinforced continued smoking cessation Bronchodilator per nurse advisor Medical management of other comorbidities per internal medicine, pulmonology, ID Once patient's able to be maintained on 4 L nasal cannula or less she may be discharged home from our standpoint on home oxygen Needs to follow-up with Dr. Espino in 2 weeks in the office We will continue to see on an as-needed basis. Please call us with any further questions
--- NOTE | 2023-10-23 12:38 | P.PN ---
Subjective Progress Note Date: 10/23/23 Principal diagnosis: Right lung abscess/pneumonia I am seeing this patient in consultation today 09/30/2023 for suspected pulmonary abscess. 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 She did have a complicated postoperative hospital stay with a persistent right sided pneumothorax and opacification of the right midlung area. She has been closely followed up on an outpatient basis. She does follow Dr. Davey in the pulmonary office, and also had a office visit with Dr. Espino from cardiothoracic surgery on 09/17. She states that she has "not really been 100%" since surgery. More recently she has had symptoms of exertional shortness of breath, right-sided back pain, productive cough with yellow/green sputum sometimes pink tinged, and subjective fevers. She has received courses of Levaquin and doxycycline outpatient. A CT of the chest done 2 days ago demonstrated focal severe consolidation of the right upper lobe measuring 7.7 cm with what appears to be a fluid density concerning for pulmonary abscess. There is an adjacent residual loculated small anterior upper lung pneumothorax measu ring 4.5 cm. There is a possible secondary pulmonary abscess or cavitary necrosis with air-fluid level anterior right mid lung measuring 9.2 x 8.2 x 7.4 cm. For this reason, she was directed to the emergency room yesterday. Patient was given doses of Levaquin and vancomycin in the emergency room. She does have a penicillin ALLERGY. Bronchoscopy with BAL done on 08/23/2023 did not identify significant bacterial growth. CBC shows a WBC count of 16, hemoglobin 9.6, hematocrit 30.4, platelets 694. BMP on arrival shows sodium 133, potassium 3.2, chloride 83, serum bicarbonate 34, BUN 12, creatinine 0.5, glucose 112. Normal saline infusing at 130 ML's per hour. Lactic acid level I.9. Patient is currently lying in bed, on 2 L/m nasal cannula, in no acute distress. SPO2 97%. She is slightly tachycardic with a heart rate of 116 bpm. She was febrile with a T-max of 100F. Blood cultures pending. Hemodynamically stable. Patient was seen and examined today on 10/01/23, seems to be doing about the same, continues to have cough and shortness of breath. Cough is productive with thick yellow phlegm. Underwent a bronchoscopy today , please refer to the full operative report. Patient was found to have significant area and secretions coming out of the right middle lobe, mucosa in the right middle lobe was noted to be thick HI edematous, and has quite a bit of abnormal appearance, multiple biopsies from the right lobe bronchus were done, and lavage of the right middle lobe/medial segment was also performed. In the meantime the patient remains on antibiotics, and these will likely be adjusted based on the final culture from the BAL. Patient continues to have leukocytosis with WBC count of 17.9 hemoglobin 8.9, basic metabolic profile is normal Reevaluated today on 10/02/23, patient was seen by interventional radiology yesterday, and she underwent placement of a pigtail catheter into her right lung. Significant purulent drainage is noted into the pleural VAC, chest x-ray is showing improvement, clinically the patient is feeling better, remains on antibiotics, cultures are pending however the Gram stain is showing gram- positive cocci and that is from the pleural effusion fluid. BAL Gram stain is showing moderate PMNs and mixed organisms including gram-negative bacilli and gram-positive cocci. Patient is tolerating antibiotics well, and apparently she had one of placed treatment into the lung. Abscess. Patient refusing to have any more. WBC count is down today to 6.2 from 17.9 hemoglobin is 7.9, basic metabolic profile is normal. Renal profile is normal patient remains in the meantime on vancomycin and on aztreonam. On 10/15/2023, patient is awake and alert and sitting up on a chair. The patient is comfortable. She is complaining of pain along the right chest. Epidural fentanyl was discontinued. The patient is taken oxycodone 10 mg every 4 hours on a when necessary basis. She is also on Toradol. Antibiotic coverage is with meropenem and vancomycin. Meanwhile, she is on 2 L of oxygen by nasal cannula. She was having some issues with a low CVP and hypotension yesterday. Jesu-Synephrine was weaned off and discontinued. She was given IV fluids. Currently she is on a low-dose vasopressin at 0.02 units per minutes. The patient otherwise is producing adequate amount of urine output. She is awake and alert. The right-sided chest tubes are still in place. The patient has an apical chest tube is still leaking and the output from the chest tube is in order of 100 mL over the past 8 hours. No evidence of any air leak on the pos terior chest tube which is running approximately 70 mL's over the past 8 hours. The patient had a follow-up chest x-ray today. No evidence of any pneumothorax. Chest tubes are in adequate location. Patient is set up postthoracotomy. The patient also developed a small right posterior atelectasis/pleural effusion. Left lung remains clear. On 10/16/2023, the patient is still having some soreness across her surgical one-sided. Otherwise, she is stable on 3 L of oxygen by nasal cannula. Chest x-ray shows no interval change. The patient has a apical and the posterior chest tube. No air leak and the posterior chest tube. Output is minimal at this point in time. The apical chest tube is showing intermittent air leak. She is currently on waterseal. She is using the senna spirometer. She is on no pressors. IV fluids are currently at KVO. Vasopressin has been discontinued since this morning at around 7:30 AM. Her white cell count is improved and currently is down to 5.1 with a hemoglobin of 7.8. Sodium is at 132, bicarb is at 28 with a BUN of 15 and a creatinine of 0.4. She remains on IV vancomycin. She is also on IV cefepime. Chest x-ray shows no evidence of any pneumothorax. She remains on bronchodilators. No other interval change as yesterday. She is going to ambulate. 10/17/2023, the patient is on oxygen at 2 L. The posterior chest tube was removed yesterday. The patient has right anterior apical chest tube in place. There is persistent air leak still. The patient is on waterseal. The chest x- ray shows adequate expansion of the right lung. No evidence of any pneumothorax. A small amount of pleural effusion is present on the left. She is calm and comfortable and she is also ambulating with help of the nursing staff. Electrodes are all stable, BUN is at 10 with a creatinine of 0.5. The white cell cause of 3.6 with a hemoglobin of 7.5. Remains on the same antibiotic coverage. Remains on bronchodilators. She is currently on Merrem and vancomycin. Patient was reevaluated today on 10/18/2023, remains in the ICU, patient is on 2 L nasal cannula, continues to have significant air leak, but the patient is not in any distress, cultures from the fluid had shown Brrevbacterium species, should respond to vancomycin which the patient is presently on along with the Merrem. Patient received a full course of treatment since admission, and i nfectious disease will likely stop antibiotics today. Chest x-ray continues to show adequate expansion of the right lung, and in no evidence of pneumothorax. WBC count today is 3.8 hemoglobin 7.8 remains low patient had received a total of 7 units of packed RBCs since admission, basic metabolic profile is normal, renal profile is normal, patient is hemodynamically stable, and hopefully she could be transferred out of the ICU to a monitor bed on selective today. Patient was reevaluated today on 10/19/2023, she is now postoperative day #6, Redo Thoracotomy, Extensive lysis of adhesions, Right middle lobectomy, Cryo- ablation of intercostal nerves 3-7. Patient is complaining of significant a mount of chest wall pain, Complaining of shortness of breath, O2 saturation is 98% on 4 L nasal cannula, chest x-ray is showing worsening atelectasis in the upper medial portion of the right lung. Obviously she is developing atelectasis in the remaining right lower lobe which is now expanded to fill the space of the right upper lobe and right middle lobe. Continues to have significant air leak, discuss with thoracic surgery that we continue the same for now, and consider bronchoscopy if the patient continues to do poorly. And will recommend follow-up chest x-ray in the next 24 hours. WBC count is 4.3 hemoglobin 8.8 basic metabolic profile is normal renal profile is normal it patient is receiving bronchodilators and Mucomyst to help loosen up her secretions and hopefully improve the atelectatic portion noted in the right lung Patient was reevaluated today on 10/23/2023, patient is now postoperative day #10 redo thoracotomy, extensive intensive lysis of adhesions, right middle lobec larissa, cryoablation of intercostal nerves III through VII. Patient seems to be doing better today, breathing easier, she is only on 3 L nasal cannula, O2 saturations 93%, no evidence of pneumothorax noted on the chest x-ray today, and chronic changes noted in the right midlung area and right hilar area. Clinically the patient is feeling better, no clear-cut evidence of active infection. Yesterday the patient was considering transferring to [facility], but at this point I believe the patient is doing well, and very unlikely that she needs transfer unless she insists on it. WBC count is 6.3 hemoglobin 8.8 basic metabolic profile is normal and renal profile is normal. Pain seems to be better controlled. Her pro calcitonin level yesterday was 0.09 which does not speak in favor of ongoing pneumonia or infection Objective - Vital Signs Vital signs: Vital Signs Temp 98.2 F 10/23/23 11:30 Pulse 100 10/23/23 12:04 Resp 20 10/23/23 11:30 BP 139/78 10/23/23 11:30 Pulse Ox 96 10/23/23 11:30 FiO2 35 10/19/23 11:24 Intake & Output 10/22/23 10/23/23 10/23/23 18:59 06:59 18:59 Intake Total 10 10 414 Output Total 300 Balance -290 10 414 Intake: IV 10 10 Invasive Line 1 10 10 Oral 414 Output: Urine 300 Other: Voiding Method Bedside Commode Toilet Toilet # Voids 3 1 1 # Bowel Movements 1 1 ABP, PAP, CO, CI - Last Documented Arterial Blood Pressure 81/41 - Exam Physical Exam: Revealed a 57-year-old female in no distress or 3 L nasal cannula, sitting at a bedside chair. Head: Atraumatic, normocephalic. HEENT:[Neck is supple.] [No neck masses.] [No thyromegaly.] [No JVD.] Chest: [Clear bilaterally no rhonchi no wheezes Cardiac Exam: [Normal S1 and S2, no S3 gallop, no murmur.] Abdomen: [Soft, nontender, no megaly, no rebound, no guarding, normal bowel sounds.] Extremities: [No clubbing, no edema, no cyanosis.] Neurological Exam: [No focal neurologic deficit.] Alert oriented 3 Psychiatric: Normal mood affect and normal mental status examination - Labs CBC & Chem 7: 10/23/23 08:56 10/23/23 08:56 Labs: Abnormal Lab Results - Last 24 Hours (Table) 10/23/23 10/23/23 Range/Units 08:56 08:56 RBC 3.03 L (3.80-5.40) m/uL Hgb 8.8 L (11.4-16.0) gm/dL Hct 28.5 L (34.0-46.0) % RDW 16.2 H (11.5-15.5) % Carbon Dioxide 35 H (22-30) mmol/L Creatinine 0.42 L (0.52-1.04) mg/dL Glucose 103 H (74-99) mg/dL Calcium 8.1 L (8.4-10.2) mg/dL Microbiology - Last 24 Hours (Table) 10/22/23 16:34 Gram Stain - Preliminary Sputum Assessment and Plan Assessment: Impression: Thoracotomy with extensive lysis of adhesions and right middle lobectomy. The patient is postop day #10 surgery was on 10/13, continues to have right-sided chest tube in place, continues to have significant air leak. Not to mention the patient did receive a total of 7 units of packed RBCs and 2 units of fresh was a plasma with 1 units of platelets since admission. No clear-cut evidence of obvious blood loss. Non-small cell lung cancer status post right upper lobectomy, done on 08/19/2023. Two regional hilar lymph nodes were positive for metastasis. No other lymph nodes involved. Post-operative hospital stay was complicated by persistent residual right apical pneumothorax. During this hospitalization, she did have a follow-up bronchoscopy with BAL done on 08/31/2023 Likely secondary lung abscess, status post pigtail catheter placement and drainage. Fluid was positive for brevibacterium species, treated with vancom ycin Normocytic normochromic anemia, without any obvious blood loss Chronic obstructive pulmonary disease, with a FEV1 53% of predicted, stable. Former tobacco dependence Recommendation: Continue oxygen and titrate accordingly Continue bronchodilators Continue incentive spirometry Chest tube was dislodged accidentally and no need for chest tube to be placed Continue pain control management with oxycodone and Toradol Consider discharge planning on Wednesday, patient may benefit from rehab referral. We will continue to follow Time with Patient: Less than 30
--- NOTE | 2023-10-23 14:23 | P.PN ---
Subjective Progress Note Date: 10/23/23 Patient evaluated on medical floor. Pigtail catheter remains in place with 20 mls of output documented overnight. Patient continues with productive cough brown tinged sputum and repeat sputum culture has been sent and pending at this time. Chest xray today reveals cavitation vs. pneumothorax right apex. Small effusion may be present. Bronchial washings reveal inflammation, negative for diagnostic malignancy. Patient does have known NSCLC. Remains on IV aztreonam and IV vancomycin. Procalcitonin level 0.15. 10/06/2023 Patient evaluated sitting up in bed. No drainage noted from [facility] overnight. Pigtail catheter remains n place. Chest xray today reveals stable appearance right lung with pneumothorax vs. cavitation apex. Small effusion may be present. Repeat sputum culture final showing normal hubert. The pleural fluid is finalized showing brevibacterium species. 10/07/2023 Patient is evaluated today sitting up in bed. Legs are swollen, patient has been receiving IV fluids which will be stopped. IV lasix x 1 will be given and recommending SCDs for this. Edema is non pitting. Patient had chest xray this AM showing possible loculated pneumothorax vs. cavitary process. Subpulmonic right basilar effusion. The left lung is clear. Pigtail catheter remains in place again minimal to no drainage overnight. CT following closely. Repeat sputum showing normal hubert. Remains on IV antibiotics. Patient remains on room air. 10/08/[address] yesterday showing residual lung abscess with significant fluid content remaining. Thickening of the right pectoralis major muscle with some air and possibly fluid within and may relate to developing infection in this location. Pigtail catheter remains in place. Bilateral pleural effusions. Small left and moderate right pleural effusion. Sodium 139, renal function stable. 10/09/2023 Patient evaluated today sitting up in bed. Lower extremity edema is improved after a second dose of IV lasix, remains off fluids she is eating and drinking well. BENJAMÍN hose to be applied today should help with the swelling as well. Patient continues with the pigtail catheter which has had minimal drainage over the last 2 days. Patient will be going for thoracotomy and right middle lobectomy on Wednesday. Patient remains on IV vancomycin per ID and PICC line is in place. 10/10/2023 Patient evaluated today sitting up in bed. Remains on 2L of oxygen. Lower extremity edema improved. Continues on IV vancomycin. Pending repeat chest xray reports. Cardiothoracic following closely patient will go for right middle lobectomy and thoracotomy on Wednesday. 10/13/2023 Patient is seen in follow-up this morning currently nothing by mouth as she is scheduled to undergo thoracotomy with right middle lobectomy with CT surgery. Pulmonary following closely patient continues on 2 L of oxygen along with antibiotics. Plan is for going to ICU postop and will await surgical report. Patient is sitting up with multiple family members at bedside with questions and concerns were answered to the best of our ability. Patient is currently afebrile with no reports of worsening shortness of breath. Patient denies any nausea or vomiting and currently nothing by mouth for the procedure. 10/14/2023 Patient is seen in follow-up in the ICU status post right middle lobectomy with CT surgery yesterday. Patient with multiple medical consultations following co ntinues on low-dose pressor support for hypotension. Patient also on epidural pain pump with anesthesia following has been titrating meds accordingly due to continued low blood pressure patient has been receiving large amounts of fluid showing some minimal improvement in blood pressures. Patient is alert and oriented sitting up in the chair and continued on 2 L via nasal cannula. Patient is afebrile and maintained on meropenem along with vancomycin with infectious disease following. Encouraged incentive spirometer use and awaiting follow-up labs. Patient continues with indwelling Jimenez catheter for continued strict intake and output monitoring. PT/OT therapy for evaluation. 10/15/2023 Patient is seen in follow-up today currently sitting up in the chair remains in the ICU with multiple medical consultations following. Patient continues on meropenem along with vancomycin and awaiting cultures. Patient continues with right-sided chest tubes being placed to waterseal. Patient continues on low- dose vasopressin his blood pressures are low. IV fluids being discontinued as chest x-ray shows some pleural effusions. Blood pressures are marginal and will be monitored closely in the ICU. Patient continues on 2-3 L via nasal cannula continues to report shortness of breath although no worse. Patient is having chest wall pain at the chest tube sites and pain medications being adjusted including any oral medications. Patient is afebrile and hemoglobin is stable although trending down but above 7 today. Recommend to monitor closely and transfuse of 7 or less. No reported nausea or vomiting patient tolerating diet needs encouragement with meals. 10/16/2023 Patient is in the MICU. Awake alert and oriented x 3. On 2 L oxygen via nasal cannula. Was able to ambulate in the floyd but still having exertional dyspnea. Also complains of soreness at the chest tube site. Right posterior pleural chest tube was removed today. Still having anterior chest tube draining serosa nguineous fluid.. Patient has been afebrile. Remains on antibiotics in the form of vancomycin and meropenem. No complaints of nausea or vomiting. No cough or sputum production. Pleural fluid culture showed Brevibacterium species on 10/01/2023.. Laboratory test showed WBC 5.1 hemoglobin 7.8 and platelets 185, sodium 132 potassium 3.8 chloride 99 bicarb is 28 BUN 15 and creatinine 0.48 Chest x-ray this morning showed postsurgical changes right hemithorax with [address]. No appreciable pneumothorax. Pleural parenchymal opacities throughout the right side of the chest are fairly similar. Slightly increasing patchy atelectasis or infiltrate at the left base. 10/17/2023 Patient is currently sitting in the chair. Awake alert and oriented x 3. On 2 L oxygen via nasal cannula. Right anterior chest tube in place draining serosanguineous fluid. Pain is controlled with medications. Patient has been afebrile. Chest x-ray today showed similar postsurgical changes and volume loss in the right hemithorax with slightly improving interstitial densities throughout right lung. Underlying small right effusion. Right-sided chest tube in place. No appreciable pneumothorax. Laboratory data showed WBC 3.6 hemoglobin 7.5 and platelets 217 potassium 3.3 chloride 103 bicarb is 27 BUN 10 and creatinine 0.9 and calcium 7.6. Patient is being continued on antibiotics in the form of vancomycin and meropenem. 10/18/2023 Patient is seen in follow-up this morning continues to be in the ICU. Patient with one remaining chest tube and discussion of possible removal of the other in the next 24-48 hours. Follow-up chest x-ray ordered showing continue posts urgical right hemothorax redemonstrated with patchy opacification is on the right middle and lower lung slightly improved with a trace of effusion with an ongoing small left effusion with atelectasis. Patient does have incentive spirometer at the bedside and reports has been using very frequently. Patient continues on antibiotics in the form of meropenem and vancomycin with infectious disease following an cultures thus far have been negative. Hemoglobin is stable at 7.8 today and BMP within normal limits. Magnesium slightly low and replacement protocol ordered. Will follow up on repeat labs. 10/19/2023 Patient is seen in follow-up has been transitioned and downgraded from the ICU on 3 south now continues with chest tube and chest x-ray today shows developing left lower lobe infiltrate with small effusion may be present along with a right lobectomy postsurgical changes that remain. Patient to continue with chest tube per CT surgery. Patient having continued shortness of breath maintained on 4 L via nasal cannula and having some bilateral lower extremity swelling and was given a dose of IV Lasix today. Sodium is 138 with a potassium of 3.5, BUN is 7 and creatinine is 0.4. Magnesium is 1.6 and will replace per protocol. Patient also continues on breathing inhalational treatments as well as Mucomyst and will continue. Patient has been instructed and encouraged to continue with incentive spirometer at least 10 times every hour while awake. Patient is currently afebrile and report shortness of breath with chest wall discomfort although denies chest pain or palpitations. Patient is extremely lethargic today and reports has been up and walking and resting frequently. Patient tolerating oral intake with no reported nausea or vomiting. 10/20/2023 Patient is seen in follow-up this morning reporting she feels tired although is easily arousable, alert and oriented 3. Patient appears somewhat uncomfortable in the bed and encourage getting up out of the bed and frequent walking. Patient reports she has been walking and tolerating and does become extremely short of breath although recovers. Patient currently maintained on 4 L with continued chest tube as her continues to be a minimal air leak present. CT surgery followed with no plans of removing the tube at this time. Patient encouraged to continue using incentive spirometer at least 10 times every hour while awake. Per nursing staff nightshifts reported some altered mentation or intermittent periods of confusion which is likely multifactorial due to episodes of hypoxia requiring more oxygen as well as possible Flexeril side effect and will hold this for now. Patient is taking a number of pain medications that could contribute and will monitor closely. 10/21/2023 Patient is seen in follow-up this morning appears lethargic and sleeping although arousable. Patient has been having increased episodic periods of confusion and all narcotic medications have been discontinued. Patient continue Toradol and Tylenol for pain. Patient continues with right side chest tube with continued air leak with no plans of removing at this time with CT surgery following. Patient currently on 4 L via nasal cannula reports to shortness of breath. Patient reports has been using incentive spirometer and strongly encouraged to continue using at least 10 times every hour while awake. Patient also to continue with getting up and walking with assistance in getting up out of the bed more frequently. Patient is afebrile 18 and antibiotics with infectious disease following. Recommend daily PT/OT therapy evaluation as patient is significantly weak and has had prolonged hospitalization. 10/22/2023 Patient is seen and evaluated in follow-up this morning currently sitting up in the chair. Patient has been intermittently lethargic throughout most of the days and has been instructed to get up out of the bed and sit in the chair with windows and shades open and staying awake throughout most of the day as patient family reports has not been sleeping very well. Patient requesting something for sleep. Narcotics have been discontinued as patient was having increased confusion and forgetfulness. Multiple medical consultations following including CT surgery as well as pulmonary and infectious disease. Antibiotics have been discontinued and patient is being closely monitored antibiotic therapy. Patient apparently was transitioning from the chair to the bed and inadvertently pulled her chest tube out. Follow-up x-rays have been performed with no sizable pneumothorax noted. No plans for chest tube replacement at this time. Patient continued on 5 L via nasal cannula and recommended weaning as tolerated. Continue incentive spirometer and continued physical therapy. Per nursing staff patient family was requesting a transfer to [place] as they feel the treatment here is inadequate. Discussed with the patient in detail at bedside that there are no plans for transfer at this time the patient would need to consider leaving AGAINST MEDICAL ADVICE if wanting to go to [place]. Patient evaluated today sitting up in the chair. Per cardiothoracic patient can be considered for discharge when she is tolerating 4 L of nasal cannula or less and will follow-up with him on discharge in 2-3 weeks. Patient continues to report right sided chest pain which she states was after her first surgery and has been the same pain. Her chest x-ray today shows similar postsurgical fin dings of right-sided lobectomy with pulmonary edema and small pleural effusion and there may be a trace right pneumothorax. Patient does have pitting lower extremity edema and would benefit from IV Lasix this was discussed with the patient, we also discussed compression and patient refuses SCDs states that she gets claustrophobic which she would try an Pablo wrap. Review of Systems Constitutional: Reports of fatigue denied any fever. Reports having difficulty in sleeping Cardio vascular: denied any chest pain, palpitations, reports chest wall pain Gastrointestinal: denied any nausea, vomiting, diarrhea Pulmonary: Reports shortness of breath that Worsens with exertion, reports no worse Neurologic denied any new focal deficits, reports generalized weakness All medications were reviewed PHYSICAL EXAMINATION: GENERAL: The patient is alert and oriented x3, having periods of confusion a lthough appears more alert today. Well developed, well nourished. Obese HEENT: Pupils are round and equally reacting to light. EOMI. No scleral icterus. No conjunctival pallor. Normocephalic, atraumatic. No pharyngeal erythema. No thyromegaly. CARDIOVASCULAR: S1 and S2 muffled PULMONARY: Diminished breath sounds bilaterally and more so on the right with Crackles in the right lung base. ABDOMEN: Soft, nontender, nondistended, normoactive bowel sounds. No palpable organomegaly. MUSCULOSKELETAL: No joint swelling or deformity. EXTREMITIES: No cyanosis, clubbing +1 pitting peripheral edema/ankle edema NEUROLOGICAL: Gross neurological examination did not reveal any focal deficits. Diffusely weak SKIN: No rashes. Assessment: Pneumonia with possible lung abscess, status post bronchoscopy, status post right middle lobe lobectomy on 10/13/2023 Rule out Cavitary lung lesion/pulmonary abscess as well as possible second ovary abscess or cavity necrosis Non-small cell lung cancer status post right upper lobectomy, done on 08/19/2023. 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 The bronchial washings are negative for malignancy and sputum showing gram positive. Repeat sputum culture showing normal hubert. Infectious disease is following and has discontinued antibiotics patient is being closely monitored off antibiotic therapy Patient is status post right middle lobectomy and reportedly was transitioning from the chair back to the bed and pulled the right chest tube. Evaluated by CT surgery recommending follow-up chest x-rays and no sizable pneumothorax noted with no plans of placing the chest tube at this time. Will follow-up on chest x-ray. Patient having increased periods of confusion and all narcotics have been discontinued, likely medication effect. Mentation improved today. We'll continue Tylenol and Toradol and lidocaine patches. Per CT surgery patient also had cryoablation done on the nerves and reports would not require IV narcotics Continue BENJAMÍN hose and to elevate lower extremities while sitting. Patient continues to have bilateral lower extremity swelling and edema 1+ pitting of the feet and was given a dose of Lasix again today and will be started on IV lasix Q12. Continue to encourage incentive spirometer 10 x an hour while awake. Patient is currently maintained on 5 L via nasal cannula recommend wean FiO2 as tolerated. Patient continues to report increasing shortness of breath with exertion Encouraged Increase activity level. Recommend PT/OT therapy daily. Plan for home with HC on discharge. Repeat labs pending We'll follow up on repeat labs. Replace potassium and electrolytes per protocol Due to multiple complex medical issues, prognosis is guarded Nursing staff reported patient would like transfer to [place]'s family feels she is not receiving adequate care. Discussed with the patient at length who is alert and oriented 3 at the time of exam that patient would be required to leave AGAINST MEDICAL ADVICE in order to go to [place] as there is no need for transfer at this time. Plan is for discharge once patient is on 4L of oxygen and tolerating activity wednesday at the earliest as she is not ready today and unable to set up oxygen over the weekend. Repeat labs in AM. The impression and plan of care has been dictated by Margo Stallings Nurse Practitioner as directed. Dr. Lavern MD I have performed a history and physical examination and medical decision making of this patient, discussed the same with the dictator, and agree with the dictators assessment and plan as written, documented as a scribe. Based on total visit time, I have performed more than 50% of this visit. Objective - Vital Signs Vital signs: Vital Signs Temp 98.0 F 10/23/23 05:00 Pulse 100 10/23/23 07:50 Resp 20 10/23/23 05:00 BP 149/85 10/23/23 05:00 Pulse Ox 95 10/23/23 07:24 FiO2 35 10/19/23 11:24 Intake & Output 10/22/23 10/23/23 10/23/23 18:59 06:59 18:59 Intake Total 10 10 414 Output Total 300 Balance -290 10 414 Intake: IV 10 10 Invasive Line 1 10 10 Oral 414 Output: Urine 300 Other: Voiding Method Bedside Commode Toilet # Voids 3 1 1 # Bowel Movements 1 1 ABP, PAP, CO, CI - Last Documented Arterial Blood Pressure 81/41 - Labs CBC & Chem 7: 10/23/23 08:56 10/23/23 08:56 Labs: Abnormal Lab Results - Last 24 Hours (Table) 10/22/23 Range/Units 08:16 C-Reactive Protein 12.0 H (<1.0) mg/dL Microbiology - Last 24 Hours (Table) 10/22/23 16:34 Gram Stain - Preliminary Sputum Assessment and Plan Time with Patient: Less than 30
[2023-10-23] MEDS: METOPROLOL TARTRATE 12.5 MG TAB PO SCH ×2 (15:26→19:54)
[2023-10-23] MEDS: FUROSEMIDE 10 MG/ML 4 ML VIAL IV SCH (19:54)
[2023-10-23] MEDS: SENNOSIDES-DOCUSATE SODIUM 1 EACH TAB PO SCH (20:04)
[2023-10-23] MEDS: KETOROLAC 15 MG/ML 1 ML VIAL IVP PRN (21:35)
[2023-10-23] MEDS: TEMAZEPAM 7.5 MG CAP PO PRN (21:35)
[2023-10-24] MEDS: KETOROLAC 15 MG/ML 1 ML VIAL IVP PRN ×4 (02:35→22:07)
[2023-10-24] MEDS: ACETAMINOPHEN TAB 500 MG TAB PO PRN ×3 (04:59→20:07)
[2023-10-24] MEDS: PANTOPRAZOLE 40 MG TABLET PO SCH (06:29)
[2023-10-24 07:53] LABS: African American GFR (CKD) >90 (>60 ml/min/1.73 sqM); Anion Gap 4 mmol/L; Blood Urea Nitrogen 9 mg/dL (7-17); Calcium 8.1 mg/dL (8.4-10.2); Carbon Dioxide 36 mmol/L (22-30); Chloride 97 mmol/L (98-107); Glucose 81 mg/dL (74-99); Non-African American GFR(CKD) >90 (>60 ml/min/1.73 sqM); Potassium 4.1 mmol/L (3.5-5.1); Sodium 137 mmol/L (137-145)
[2023-10-24] MEDS: FUROSEMIDE 10 MG/ML 4 ML VIAL IV SCH ×2 (08:52→20:06)
[2023-10-24] MEDS: FORMOTEROL FUMARATE 20 MCG/2 ML NEBU INHALATION SCH ×2 (08:52→21:06)
[2023-10-24] MEDS: ACETYLCYSTEINE 800 MG/4 ML VIAL INHALATION SCH ×3 (08:53→21:07)
[2023-10-24] MEDS: guaiFENesin 600 MG TABLET.ER PO SCH ×2 (08:53→20:07)
[2023-10-24] MEDS: SERTRALINE 50 MG TAB PO SCH (08:53)
[2023-10-24] MEDS: IPRATROPIUM-ALBUTEROL 3 ML NEB INHALATION SCH ×4 (08:53→21:06)
[2023-10-24] MEDS: HEPARIN SODIUM,PORCINE 5,000 UNIT/ML 1 ML VIAL SQ SCH ×3 (08:53→22:07)
[2023-10-24] MEDS: BUDESONIDE 0.5 MG/2 ML NEBU INHALATION SCH ×2 (08:53→21:06)
[2023-10-24] MEDS: METOPROLOL TARTRATE 12.5 MG TAB PO SCH ×2 (08:54→20:07)
[2023-10-24] MEDS: LIDOCAINE 4% PATCH TOPICAL SCH (08:54)
--- NOTE | 2023-10-24 12:34 | P.PN ---
Subjective Progress Note Date: 10/24/23 Principal diagnosis: Right lung abscess/pneumonia I am seeing this patient in consultation today 09/30/2023 for suspected pulmonary abscess. 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 She did have a complicated postoperative hospital stay with a persistent right sided pneumothorax and opacification of the right midlung area. She has been closely followed up on an outpatient basis. She does follow Dr. Davey in the pulmonary office, and also had a office visit with Dr. Espino from cardiothoracic surgery on 09/17. She states that she has "not really been 100%" since surgery. More recently she has had symptoms of exertional shortness of breath, right-sided back pain, productive cough with yellow/green sputum sometimes pink tinged, and subjective fevers. She has received courses of Levaquin and doxycycline outpatient. A CT of the chest done 2 days ago demonstrated focal severe consolidation of the right upper lobe measuring 7.7 cm with what appears to be a fluid density concerning for pulmonary abscess. There is an adjacent residual loculated small anterior upper lung pneumothorax measu ring 4.5 cm. There is a possible secondary pulmonary abscess or cavitary necrosis with air-fluid level anterior right mid lung measuring 9.2 x 8.2 x 7.4 cm. For this reason, she was directed to the emergency room yesterday. Patient was given doses of Levaquin and vancomycin in the emergency room. She does have a penicillin ALLERGY. Bronchoscopy with BAL done on 08/23/2023 did not identify significant bacterial growth. CBC shows a WBC count of 16, hemoglobin 9.6, hematocrit 30.4, platelets 694. BMP on arrival shows sodium 133, potassium 3.2, chloride 83, serum bicarbonate 34, BUN 12, creatinine 0.5, glucose 112. Normal saline infusing at 130 ML's per hour. Lactic acid level I.9. Patient is currently lying in bed, on 2 L/m nasal cannula, in no acute distress. SPO2 97%. She is slightly tachycardic with a heart rate of 116 bpm. She was febrile with a T-max of 100F. Blood cultures pending. Hemodynamically stable. Patient was seen and examined today on 10/01/23, seems to be doing about the same, continues to have cough and shortness of breath. Cough is productive with thick yellow phlegm. Underwent a bronchoscopy today , please refer to the full operative report. Patient was found to have significant area and secretions coming out of the right middle lobe, mucosa in the right middle lobe was noted to be thick MN edematous, and has quite a bit of abnormal appearance, multiple biopsies from the right lobe bronchus were done, and lavage of the right middle lobe/medial segment was also performed. In the meantime the patient remains on antibiotics, and these will likely be adjusted based on the final culture from the BAL. Patient continues to have leukocytosis with WBC count of 17.9 hemoglobin 8.9, basic metabolic profile is normal Reevaluated today on 10/02/23, patient was seen by interventional radiology yesterday, and she underwent placement of a pigtail catheter into her right lung. Significant purulent drainage is noted into the pleural VAC, chest x-ray is showing improvement, clinically the patient is feeling better, remains on antibiotics, cultures are pending however the Gram stain is showing gram- positive cocci and that is from the pleural effusion fluid. BAL Gram stain is showing moderate PMNs and mixed organisms including gram-negative bacilli and gram-positive cocci. Patient is tolerating antibiotics well, and apparently she had one of placed treatment into the lung. Abscess. Patient refusing to have any more. WBC count is down today to 6.2 from 17.9 hemoglobin is 7.9, basic metabolic profile is normal. Renal profile is normal patient remains in the meantime on vancomycin and on aztreonam. On 10/15/2023, patient is awake and alert and sitting up on a chair. The patient is comfortable. She is complaining of pain along the right chest. Epidural fentanyl was discontinued. The patient is taken oxycodone 10 mg every 4 hours on a when necessary basis. She is also on Toradol. Antibiotic coverage is with meropenem and vancomycin. Meanwhile, she is on 2 L of oxygen by nasal cannula. She was having some issues with a low CVP and hypotension yesterday. Jesu-Synephrine was weaned off and discontinued. She was given IV fluids. Currently she is on a low-dose vasopressin at 0.02 units per minutes. The patient otherwise is producing adequate amount of urine output. She is awake and alert. The right-sided chest tubes are still in place. The patient has an apical chest tube is still leaking and the output from the chest tube is in order of 100 mL over the past 8 hours. No evidence of any air leak on the pos terior chest tube which is running approximately 70 mL's over the past 8 hours. The patient had a follow-up chest x-ray today. No evidence of any pneumothorax. Chest tubes are in adequate location. Patient is set up postthoracotomy. The patient also developed a small right posterior atelectasis/pleural effusion. Left lung remains clear. On 10/16/2023, the patient is still having some soreness across her surgical one-sided. Otherwise, she is stable on 3 L of oxygen by nasal cannula. Chest x-ray shows no interval change. The patient has a apical and the posterior chest tube. No air leak and the posterior chest tube. Output is minimal at this point in time. The apical chest tube is showing intermittent air leak. She is currently on waterseal. She is using the senna spirometer. She is on no pressors. IV fluids are currently at KVO. Vasopressin has been discontinued since this morning at around 7:30 AM. Her white cell count is improved and currently is down to 5.1 with a hemoglobin of 7.8. Sodium is at 132, bicarb is at 28 with a BUN of 15 and a creatinine of 0.4. She remains on IV vancomycin. She is also on IV cefepime. Chest x-ray shows no evidence of any pneumothorax. She remains on bronchodilators. No other interval change as yesterday. She is going to ambulate. 10/17/2023, the patient is on oxygen at 2 L. The posterior chest tube was removed yesterday. The patient has right anterior apical chest tube in place. There is persistent air leak still. The patient is on waterseal. The chest x- ray shows adequate expansion of the right lung. No evidence of any pneumothorax. A small amount of pleural effusion is present on the left. She is calm and comfortable and she is also ambulating with help of the nursing staff. Electrodes are all stable, BUN is at 10 with a creatinine of 0.5. The white cell cause of 3.6 with a hemoglobin of 7.5. Remains on the same antibiotic coverage. Remains on bronchodilators. She is currently on Merrem and vancomycin. Patient was reevaluated today on 10/18/2023, remains in the ICU, patient is on 2 L nasal cannula, continues to have significant air leak, but the patient is not in any distress, cultures from the fluid had shown Brrevbacterium species, should respond to vancomycin which the patient is presently on along with the Merrem. Patient received a full course of treatment since admission, and i nfectious disease will likely stop antibiotics today. Chest x-ray continues to show adequate expansion of the right lung, and in no evidence of pneumothorax. WBC count today is 3.8 hemoglobin 7.8 remains low patient had received a total of 7 units of packed RBCs since admission, basic metabolic profile is normal, renal profile is normal, patient is hemodynamically stable, and hopefully she could be transferred out of the ICU to a monitor bed on selective today. Patient was reevaluated today on 10/19/2023, she is now postoperative day #6, Redo Thoracotomy, Extensive lysis of adhesions, Right middle lobectomy, Cryo- ablation of intercostal nerves 3-7. Patient is complaining of significant a mount of chest wall pain, Complaining of shortness of breath, O2 saturation is 98% on 4 L nasal cannula, chest x-ray is showing worsening atelectasis in the upper medial portion of the right lung. Obviously she is developing atelectasis in the remaining right lower lobe which is now expanded to fill the space of the right upper lobe and right middle lobe. Continues to have significant air leak, discuss with thoracic surgery that we continue the same for now, and consider bronchoscopy if the patient continues to do poorly. And will recommend follow-up chest x-ray in the next 24 hours. WBC count is 4.3 hemoglobin 8.8 basic metabolic profile is normal renal profile is normal it patient is receiving bronchodilators and Mucomyst to help loosen up her secretions and hopefully improve the atelectatic portion noted in the right lung Patient was reevaluated today on 10/23/2023, patient is now postoperative day #10 redo thoracotomy, extensive intensive lysis of adhesions, right middle lobec larissa, cryoablation of intercostal nerves III through VII. Patient seems to be doing better today, breathing easier, she is only on 3 L nasal cannula, O2 saturations 93%, no evidence of pneumothorax noted on the chest x-ray today, and chronic changes noted in the right midlung area and right hilar area. Clinically the patient is feeling better, no clear-cut evidence of active infection. Yesterday the patient was considering transferring to [facility], but at this point I believe the patient is doing well, and very unlikely that she needs transfer unless she insists on it. WBC count is 6.3 hemoglobin 8.8 basic metabolic profile is normal and renal profile is normal. Pain seems to be better controlled. Her pro calcitonin level yesterday was 0.09 which does not speak in favor of ongoing pneumonia or infection Reevaluated today on 10/24/2023, patient is now postoperative day #11. Continues to do well, less shortness of breath, hardly any cough, no wheezing. Remains on 3 L nasal cannula, and her O2 sats is 96% CBC is relatively normal with WBC of 6.3 hemoglobin 8.8 basic metabolic profile is normal renal profile is normal pro calcitonin level was 0.09 and overall the patient is making dramatic improvement, and did not require placement of another chest tube after the last chest tube was accidentally dislodged even her pain seems to be relatively better controlled, and I believe the patient should be considered for possible rehab placement since she has been in the hospital that long Objective - Vital Signs Vital signs: Vital Signs Temp 98.0 F 10/24/23 08:00 Pulse 106 H 10/24/23 09:14 Resp 16 10/24/23 08:00 BP 146/78 10/24/23 08:00 Pulse Ox 96 10/24/23 08:53 FiO2 35 10/23/23 20:25 Intake & Output 10/23/23 10/24/23 10/24/23 18:59 06:59 18:59 Intake Total 532 550 Output Total 1750 800 Balance 532 -1200 -800 Weight 75.3 kg Intake: IV 10 Invasive Line 1 10 Oral 532 540 Output: Urine 1750 800 Other: Voiding Method Toilet Toilet Toilet Bedside Commode Bedside Commode # Voids 3 1 # Bowel Movements 1 ABP, PAP, CO, CI - Last Documented Arterial Blood Pressure 81/41 - Exam Physical Exam: Revealed a 57-year-old female in no distress or 3 L nasal cannula, sitting at a bedside chair. Head: Atraumatic, normocephalic. HEENT:[Neck is supple.] [No neck masses.] [No thyromegaly.] [No JVD.] Chest: [Clear bilaterally no rhonchi no wheezes Cardiac Exam: [Normal S1 and S2, no S3 gallop, no murmur.] Abdomen: [Soft, nontender, no megaly, no rebound, no guarding, normal bowel brittnee nds.] Extremities: [No clubbing, no edema, no cyanosis.] Neurological Exam: [No focal neurologic deficit.] Alert oriented 3 Psychiatric: Normal mood affect and normal mental status examination - Labs CBC & Chem 7: 10/23/23 08:56 10/24/23 06:47 Labs: Abnormal Lab Results - Last 24 Hours (Table) 10/24/23 Range/Units 06:47 Chloride 97 L (98-107) mmol/L Carbon Dioxide 36 H (22-30) mmol/L Creatinine 0.46 L (0.52-1.04) mg/dL Calcium 8.1 L (8.4-10.2) mg/dL Microbiology - Last 24 Hours (Table) 10/22/23 08:16 Blood Culture - Preliminary Blood 10/22/23 16:34 Gram Stain - Preliminary Sputum Assessment and Plan Assessment: Impression: Thoracotomy with extensive lysis of adhesions and right middle lobectomy. The patient is postop day 11 surgery was on 10/13, continues to have right-sided chest tube in place, continues to have significant air leak. Not to mention the patient did receive a total of 7 units of packed RBCs and 2 units of fresh was a plasma with 1 units of platelets since admission. No clear-cut evidence of obvious blood loss. Nonetheless she didn't require multiple blood transfusions Non-small cell lung cancer status post right upper lobectomy, done on 08/19/2023. Two regional hilar lymph nodes were positive for metastasis. No other lymph nodes involved. Post-operative hospital stay was complicated by persistent residual right apical pneumothorax. During this hospitalization, she did have a follow-up bronchoscopy with BAL done on 08/31/2023 secondary lung abscess, status post pigtail catheter placement and drainage. Fluid was positive for brevibacterium species, treated with vancomycin, patient received full course of antibiotics. Normocytic normochromic anemia, without any obvious blood loss Chronic obstructive pulmonary disease, with a FEV1 53% of predicted, stable. Former tobacco dependence Recommendation: Continue incentive spirometry Ambulate Consider rehab placement considering the length of stay that this patient had in the hospital on this admission Titrate oxygen accordingly Continue bronchodilators Continue incentive spirometry Continue pain control management with oxycodone and Toradol We will continue to follow Time with Patient: Less than 30
--- NOTE | 2023-10-24 18:32 | P.PN ---
Subjective Progress Note Date: 10/24/23 Patient evaluated on medical floor. Pigtail catheter remains in place with 20 mls of output documented overnight. Patient continues with productive cough brown tinged sputum and repeat sputum culture has been sent and pending at this time. Chest xray today reveals cavitation vs. pneumothorax right apex. Small effusion may be present. Bronchial washings reveal inflammation, negative for diagnostic malignancy. Patient does have known NSCLC. Remains on IV aztreonam and IV vancomycin. Procalcitonin level 0.15. 10/06/2023 Patient evaluated sitting up in bed. No drainage noted from [facility] overnight. Pigtail catheter remains n place. Chest xray today reveals stable appearance right lung with pneumothorax vs. cavitation apex. Small effusion may be present. Repeat sputum culture final showing normal hubert. The pleural fluid is finalized showing brevibacterium species. 10/07/2023 Patient is evaluated today sitting up in bed. Legs are swollen, patient has been receiving IV fluids which will be stopped. IV lasix x 1 will be given and recommending SCDs for this. Edema is non pitting. Patient had chest xray this AM showing possible loculated pneumothorax vs. cavitary process. Subpulmonic right basilar effusion. The left lung is clear. Pigtail catheter remains in place again minimal to no drainage overnight. CT following closely. Repeat sputum showing normal hubert. Remains on IV antibiotics. Patient remains on room air. 10/08/[address] yesterday showing residual lung abscess with significant fluid content remaining. Thickening of the right pectoralis major muscle with some air and possibly fluid within and may relate to developing infection in this location. Pigtail catheter remains in place. Bilateral pleural effusions. Small left and moderate right pleural effusion. Sodium 139, renal function stable. 10/09/2023 Patient evaluated today sitting up in bed. Lower extremity edema is improved after a second dose of IV lasix, remains off fluids she is eating and drinking well. BENJAMÍN hose to be applied today should help with the swelling as well. Patient continues with the pigtail catheter which has had minimal drainage over the last 2 days. Patient will be going for thoracotomy and right middle lobectomy on Wednesday. Patient remains on IV vancomycin per ID and PICC line is in place. 10/10/2023 Patient evaluated today sitting up in bed. Remains on 2L of oxygen. Lower extremity edema improved. Continues on IV vancomycin. Pending repeat chest xray reports. Cardiothoracic following closely patient will go for right middle lobectomy and thoracotomy on Wednesday. 10/13/2023 Patient is seen in follow-up this morning currently nothing by mouth as she is scheduled to undergo thoracotomy with right middle lobectomy with CT surgery. Pulmonary following closely patient continues on 2 L of oxygen along with antibiotics. Plan is for going to ICU postop and will await surgical report. Patient is sitting up with multiple family members at bedside with questions and concerns were answered to the best of our ability. Patient is currently afebrile with no reports of worsening shortness of breath. Patient denies any nausea or vomiting and currently nothing by mouth for the procedure. 10/14/2023 Patient is seen in follow-up in the ICU status post right middle lobectomy with CT surgery yesterday. Patient with multiple medical consultations following co ntinues on low-dose pressor support for hypotension. Patient also on epidural pain pump with anesthesia following has been titrating meds accordingly due to continued low blood pressure patient has been receiving large amounts of fluid showing some minimal improvement in blood pressures. Patient is alert and oriented sitting up in the chair and continued on 2 L via nasal cannula. Patient is afebrile and maintained on meropenem along with vancomycin with infectious disease following. Encouraged incentive spirometer use and awaiting follow-up labs. Patient continues with indwelling Jimenez catheter for continued strict intake and output monitoring. PT/OT therapy for evaluation. 10/15/2023 Patient is seen in follow-up today currently sitting up in the chair remains in the ICU with multiple medical consultations following. Patient continues on meropenem along with vancomycin and awaiting cultures. Patient continues with right-sided chest tubes being placed to waterseal. Patient continues on low- dose vasopressin his blood pressures are low. IV fluids being discontinued as chest x-ray shows some pleural effusions. Blood pressures are marginal and will be monitored closely in the ICU. Patient continues on 2-3 L via nasal cannula continues to report shortness of breath although no worse. Patient is having chest wall pain at the chest tube sites and pain medications being adjusted including any oral medications. Patient is afebrile and hemoglobin is stable although trending down but above 7 today. Recommend to monitor closely and transfuse of 7 or less. No reported nausea or vomiting patient tolerating diet needs encouragement with meals. 10/16/2023 Patient is in the MICU. Awake alert and oriented x 3. On 2 L oxygen via nasal cannula. Was able to ambulate in the floyd but still having exertional dyspnea. Also complains of soreness at the chest tube site. Right posterior pleural chest tube was removed today. Still having anterior chest tube draining serosa nguineous fluid.. Patient has been afebrile. Remains on antibiotics in the form of vancomycin and meropenem. No complaints of nausea or vomiting. No cough or sputum production. Pleural fluid culture showed Brevibacterium species on 10/01/2023.. Laboratory test showed WBC 5.1 hemoglobin 7.8 and platelets 185, sodium 132 potassium 3.8 chloride 99 bicarb is 28 BUN 15 and creatinine 0.48 Chest x-ray this morning showed postsurgical changes right hemithorax with [address]. No appreciable pneumothorax. Pleural parenchymal opacities throughout the right side of the chest are fairly similar. Slightly increasing patchy atelectasis or infiltrate at the left base. 10/17/2023 Patient is currently sitting in the chair. Awake alert and oriented x 3. On 2 L oxygen via nasal cannula. Right anterior chest tube in place draining serosanguineous fluid. Pain is controlled with medications. Patient has been afebrile. Chest x-ray today showed similar postsurgical changes and volume loss in the right hemithorax with slightly improving interstitial densities throughout right lung. Underlying small right effusion. Right-sided chest tube in place. No appreciable pneumothorax. Laboratory data showed WBC 3.6 hemoglobin 7.5 and platelets 217 potassium 3.3 chloride 103 bicarb is 27 BUN 10 and creatinine 0.9 and calcium 7.6. Patient is being continued on antibiotics in the form of vancomycin and meropenem. 10/18/2023 Patient is seen in follow-up this morning continues to be in the ICU. Patient with one remaining chest tube and discussion of possible removal of the other in the next 24-48 hours. Follow-up chest x-ray ordered showing continue posts urgical right hemothorax redemonstrated with patchy opacification is on the right middle and lower lung slightly improved with a trace of effusion with an ongoing small left effusion with atelectasis. Patient does have incentive spirometer at the bedside and reports has been using very frequently. Patient continues on antibiotics in the form of meropenem and vancomycin with infectious disease following an cultures thus far have been negative. Hemoglobin is stable at 7.8 today and BMP within normal limits. Magnesium slightly low and replacement protocol ordered. Will follow up on repeat labs. 10/19/2023 Patient is seen in follow-up has been transitioned and downgraded from the ICU on 3 south now continues with chest tube and chest x-ray today shows developing left lower lobe infiltrate with small effusion may be present along with a right lobectomy postsurgical changes that remain. Patient to continue with chest tube per CT surgery. Patient having continued shortness of breath maintained on 4 L via nasal cannula and having some bilateral lower extremity swelling and was given a dose of IV Lasix today. Sodium is 138 with a potassium of 3.5, BUN is 7 and creatinine is 0.4. Magnesium is 1.6 and will replace per protocol. Patient also continues on breathing inhalational treatments as well as Mucomyst and will continue. Patient has been instructed and encouraged to continue with incentive spirometer at least 10 times every hour while awake. Patient is currently afebrile and report shortness of breath with chest wall discomfort although denies chest pain or palpitations. Patient is extremely lethargic today and reports has been up and walking and resting frequently. Patient tolerating oral intake with no reported nausea or vomiting. 10/20/2023 Patient is seen in follow-up this morning reporting she feels tired although is easily arousable, alert and oriented 3. Patient appears somewhat uncomfortable in the bed and encourage getting up out of the bed and frequent walking. Patient reports she has been walking and tolerating and does become extremely short of breath although recovers. Patient currently maintained on 4 L with continued chest tube as her continues to be a minimal air leak present. CT surgery followed with no plans of removing the tube at this time. Patient encouraged to continue using incentive spirometer at least 10 times every hour while awake. Per nursing staff nightshifts reported some altered mentation or intermittent periods of confusion which is likely multifactorial due to episodes of hypoxia requiring more oxygen as well as possible Flexeril side effect and will hold this for now. Patient is taking a number of pain medications that could contribute and will monitor closely. 10/21/2023 Patient is seen in follow-up this morning appears lethargic and sleeping although arousable. Patient has been having increased episodic periods of confusion and all narcotic medications have been discontinued. Patient continue Toradol and Tylenol for pain. Patient continues with right side chest tube with continued air leak with no plans of removing at this time with CT surgery following. Patient currently on 4 L via nasal cannula reports to shortness of breath. Patient reports has been using incentive spirometer and strongly encouraged to continue using at least 10 times every hour while awake. Patient also to continue with getting up and walking with assistance in getting up out of the bed more frequently. Patient is afebrile 18 and antibiotics with infectious disease following. Recommend daily PT/OT therapy evaluation as patient is significantly weak and has had prolonged hospitalization. 10/22/2023 Patient is seen and evaluated in follow-up this morning currently sitting up in the chair. Patient has been intermittently lethargic throughout most of the days and has been instructed to get up out of the bed and sit in the chair with windows and shades open and staying awake throughout most of the day as patient family reports has not been sleeping very well. Patient requesting something for sleep. Narcotics have been discontinued as patient was having increased confusion and forgetfulness. Multiple medical consultations following including CT surgery as well as pulmonary and infectious disease. Antibiotics have been discontinued and patient is being closely monitored antibiotic therapy. Patient apparently was transitioning from the chair to the bed and inadvertently pulled her chest tube out. Follow-up x-rays have been performed with no sizable pneumothorax noted. No plans for chest tube replacement at this time. Patient continued on 5 L via nasal cannula and recommended weaning as tolerated. Continue incentive spirometer and continued physical therapy. Per nursing staff patient family was requesting a transfer to [place] as they feel the treatment here is inadequate. Discussed with the patient in detail at bedside that there are no plans for transfer at this time the patient would need to consider leaving AGAINST MEDICAL ADVICE if wanting to go to [place]. Patient evaluated today sitting up in the chair. Per cardiothoracic patient can be considered for discharge when she is tolerating 4 L of nasal cannula or less and will follow-up with him on discharge in 2-3 weeks. Patient continues to report right sided chest pain which she states was after her first surgery and has been the same pain. Her chest x-ray today shows similar postsurgical fin dings of right-sided lobectomy with pulmonary edema and small pleural effusion and there may be a trace right pneumothorax. Patient does have pitting lower extremity edema and would benefit from IV Lasix this was discussed with the patient, we also discussed compression and patient refuses SCDs states that she gets claustrophobic which she would try an Pablo wrap. 10/24/2023 Patient is evaluated today sitting up in chair, daughter at the bedside. Lower extremities have been PABLO wrapped she is also continued on IV lasix. Swelling has improved and she is less short of breath. On 3L of oxygen. Patient will need home oxygen test tomorrow for discharge planning. Review of Systems Constitutional: Reports of fatigue denied any fever. Cardio vascular: denied any chest pain, palpitations, reports chest wall pain Gastrointestinal: denied any nausea, vomiting, diarrhea Pulmonary: Reports shortness of breath that Worsens with exertion, reports no worse Neurologic denied any new focal deficits, reports generalized weakness All medications were reviewed PHYSICAL EXAMINATION: GENERAL: The patient is alert and oriented x3, having periods of confusion although appears more alert today. Well developed, well nourished. Obese HEENT: Pupils are round and equally reacting to light. EOMI. No scleral icterus. No conjunctival pallor. Normocephalic, atraumatic. No pharyngeal erythema. No thyromegaly. CARDIOVASCULAR: S1 and S2 muffled PULMONARY: Diminished breath sounds bilaterally and more so on the right with Crackles in the right lung base. ABDOMEN: Soft, nontender, nondistended, normoactive bowel sounds. No palpable organomegaly. MUSCULOSKELETAL: No joint swelling or deformity. EXTREMITIES: No cyanosis, clubbing +1 pitting peripheral edema/ankle edema NEUROLOGICAL: Gross neurological examination did not reveal any focal deficits. Diffusely weak SKIN: No rashes. Assessment: Pneumonia with possible lung abscess, status post bronchoscopy, status post right middle lobe lobectomy on 10/13/2023 Rule out Cavitary lung lesion/pulmonary abscess as well as possible second ovary abscess or cavity necrosis Non-small cell lung cancer status post right upper lobectomy, done on . 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 The bronchial washings are negative for malignancy and sputum showing gram positive. Repeat sputum culture showing normal hubert. Infectious disease is following and has discontinued antibiotics patient is being closely monitored off antibiotic therapy Patient is status post right middle lobectomy and reportedly was transitioning from the chair back to the bed and pulled the right chest tube. Evaluated by CT surgery recommending follow-up chest x-rays and no sizable pneumothorax noted with no plans of placing the chest tube at this time. Chest xray remains stable. Patient having increased periods of confusion and all narcotics have been discontinued, likely medication effect. Mentation improved today. We'll continue Tylenol and Toradol and lidocaine patches. Per CT surgery patient also had cryoablation done on the nerves and reports would not require IV narcotics Continue BENJAMÍN hose and to elevate lower extremities while sitting. Patient continues to have bilateral lower extremity swelling and edema 1+ pitting of the feet and was given a dose of Lasix again today and will be started on IV lasix Q12. Continue to encourage incentive spirometer 10 x an hour while awake. Patient is currently maintained on 5 L via nasal cannula recommend wean FiO2 as tolerated. Patient continues to report increasing shortness of breath with exertion Encouraged Increase activity level. Recommend PT/OT therapy daily. Plan for home with HC on discharge. Repeat labs pending We'll follow up on repeat labs. Replace potassium and electrolytes per protocol Due to multiple complex medical issues, prognosis is guarded Nursing staff reported patient would like transfer to [place]'s family feels she is not receiving adequate care. Discussed with the patient at length who is alert and oriented 3 at the time of exam that patient would be required to leave AGAINST MEDICAL ADVICE in order to go to [place] as there is no need for transfer at this time. Plan is for discharge once patient is on 4L of oxygen and tolerating activity wednesday at the earliest as she is not ready today and unable to set up oxygen over the weekend. Repeat labs in AM. The impression and plan of care has been dictated by Margo Stallings, Nurse Practitioner as directed. Dr. Lavern MD I have performed a history and physical examination and medical decision making of this patient, discussed the same with the dictator, and agree with the dictators assessment and plan as written, documented as a scribe. Based on total visit time, I have performed more than 50% of this visit. Objective - Vital Signs Vital signs: Vital Signs Temp 98.0 F 10/24/23 16:00 Pulse 102 H 10/24/23 16:00 Resp 16 10/24/23 16:00 BP 144/83 10/24/23 16:00 Pulse Ox 97 10/24/23 16:00 FiO2 35 10/23/23 20:25 Intake & Output 10/23/23 10/24/23 10/24/23 18:59 06:59 18:59 Intake Total 532 550 0 Output Total 1750 2600 Balance 532 -1200 -2600 Weight 75.3 kg Intake: IV 10 Invasive Line 1 10 Oral 532 540 0 Output: Urine 1750 2600 Other: Voiding Method Toilet Toilet Toilet Bedside Commode Bedside Commode # Voids 3 1 # Bowel Movements 1 ABP, PAP, CO, CI - Last Documented Arterial Blood Pressure 81/41 - Labs CBC & Chem 7: 10/23/23 08:56 10/24/23 06:47 Labs: Abnormal Lab Results - Last 24 Hours (Table) 10/24/23 Range/Units 06:47 Chloride 97 L (98-107) mmol/L Carbon Dioxide 36 H (22-30) mmol/L Creatinine 0.46 L (0.52-1.04) mg/dL Calcium 8.1 L (8.4-10.2) mg/dL Microbiology - Last 24 Hours (Table) 10/22/23 08:16 Blood Culture - Preliminary Blood Assessment and Plan Time with Patient: Less than 30
[2023-10-24] MEDS: SENNOSIDES-DOCUSATE SODIUM 1 EACH TAB PO SCH (21:55)
[2023-10-25] MEDS: PANTOPRAZOLE 40 MG TABLET PO SCH (06:32)
[2023-10-25] MEDS: ACETAMINOPHEN TAB 500 MG TAB PO PRN (06:32)
[2023-10-25 07:00] LABS: African American GFR (CKD) >90 (>60 ml/min/1.73 sqM); Anion Gap 6 mmol/L; Blood Urea Nitrogen 11 mg/dL (7-17); Calcium 8.2 mg/dL (8.4-10.2); Carbon Dioxide 34 mmol/L (22-30); Chloride 98 mmol/L (98-107); Glucose 90 mg/dL (74-99); Non-African American GFR(CKD) >90 (>60 ml/min/1.73 sqM); Potassium 3.9 mmol/L (3.5-5.1); Sodium 138 mmol/L (137-145)
[2023-10-25] MEDS: FORMOTEROL FUMARATE 20 MCG/2 ML NEBU INHALATION SCH (08:25)
[2023-10-25] MEDS: IPRATROPIUM-ALBUTEROL 3 ML NEB INHALATION SCH ×3 (08:25→15:48)
[2023-10-25] MEDS: ACETYLCYSTEINE 800 MG/4 ML VIAL INHALATION SCH ×2 (08:25→12:03)
[2023-10-25] MEDS: BUDESONIDE 0.5 MG/2 ML NEBU INHALATION SCH (08:25)
[2023-10-25] MEDS: SERTRALINE 50 MG TAB PO SCH (08:38)
[2023-10-25] MEDS: HEPARIN SODIUM,PORCINE 5,000 UNIT/ML 1 ML VIAL SQ SCH (08:38)
[2023-10-25] MEDS: METOPROLOL TARTRATE 12.5 MG TAB PO SCH (08:38)
[2023-10-25] MEDS: FUROSEMIDE 10 MG/ML 4 ML VIAL IV SCH (08:38)
[2023-10-25] MEDS: KETOROLAC 15 MG/ML 1 ML VIAL IVP PRN (08:38)
[2023-10-25] MEDS: LIDOCAINE 4% PATCH TOPICAL SCH (08:38)
[2023-10-25] MEDS: guaiFENesin 600 MG TABLET.ER PO SCH (08:38)
--- NOTE | 2023-10-25 12:45 | P.PN ---
Subjective Progress Note Date: 10/25/23 Principal diagnosis: Lung cancer. Patient was reevaluated today on 10/18/2023, remains in the ICU, patient is on 2 L nasal cannula, continues to have significant air leak, but the patient is not in any distress, cultures from the fluid had shown Brrevbacterium species, should respond to vancomycin which the patient is presently on along with the Merrem. Patient received a full course of treatment since admission, and infectious disease will likely stop antibiotics today. Chest x-ray continues to show adequate expansion of the right lung, and in no evidence of pneumothorax. WBC count today is 3.8 hemoglobin 7.8 remains low patient had received a total of 7 units of packed RBCs since admission, basic metabolic profile is normal, renal profile is normal, patient is hemodynamically stable, and hopefully she could be transferred out of the ICU to a monitor bed on selective today. Patient was reevaluated today on 10/19/2023, she is now postoperative day #6, Redo Thoracotomy, Extensive lysis of adhesions, Right middle lobectomy, Cryo- ablation of intercostal nerves 3-7. Patient is complaining of significant amount of chest wall pain, Complaining of shortness of breath, O2 saturation is 98% on 4 L nasal cannula, chest x-ray is showing worsening atelectasis in the upper medial portion of the right lung. Obviously she is developing atelectasis in the remaining right lower lobe which is now expanded to fill the space of the right upper lobe and right middle lobe. Continues to have significant air leak, discuss with thoracic surgery that we continue the same for now, and consider bronchoscopy if the patient continues to do poorly. And will recommend follow-up chest x-ray in the next 24 hours. WBC count is 4.3 hemoglobin 8.8 basic metabolic profile is normal renal profile is normal it patient is receiving bronchodilators and Mucomyst to help loosen up her secretions and hopefully improve the atelectatic portion noted in the right lung Patient was reevaluated today on 10/23/2023, patient is now postoperative day #10 redo thoracotomy, extensive intensive lysis of adhesions, right middle lobectomy, cryoablation of intercostal nerves III through VII. Patient seems to be doing better today, breathing easier, she is only on 3 L nasal cannula, O2 sa turations 93%, no evidence of pneumothorax noted on the chest x-ray today, and chronic changes noted in the right midlung area and right hilar area. Clinically the patient is feeling better, no clear-cut evidence of active infection. Yesterday the patient was considering transferring to [facility], but at this point I believe the patient is doing well, and very unlikely that she needs transfer unless she insists on it. WBC count is 6.3 hemoglobin 8.8 basic metabolic profile is normal and renal profile is normal. Pain seems to be better controlled. Her pro calcitonin level yesterday was 0.09 which does not speak in favor of ongoing pneumonia or infection Reevaluated today on 10/24/2023, patient is now postoperative day #11. Continues to do well, less shortness of breath, hardly any cough, no wheezing. Remains on 3 L nasal cannula, and her O2 sats is 96% CBC is relatively normal with WBC of 6.3 hemoglobin 8.8 basic metabolic profile is normal renal profile is normal pro calcitonin level was 0.09 and overall the patient is making dramatic improvement, and did not require placement of another chest tube after the last chest tube was accidentally dislodged even her pain seems to be relatively better controlled, and I believe the patient should be considered for possible rehab placement since she has been in the hospital that long Progress note dated 10/25/2023. 58-year-old female who is now been in the hospital for 26 days. The patient is postop day #12, status post right middle lobectomy. Currently, she is seen in room 380. She's currently on oxygen at 3 L. No IV fluids. She states that she might be transferred or discharged to rehabilitation. She is not sure. Labs today include a sodium 138, potassium 3.9, chlorides 98, CO2 34, BUN 11, creatinine 0.47. Calcium is 8.2. Most recent pro-calcitonin level is normal at 0.09. Chest x-ray from October 23, is unchanged compared to prior x-rays. Objective - Vital Signs Vital signs: Vital Signs Temp 97.1 F L 10/25/23 08:00 Pulse 100 10/25/23 11:56 Resp 17 10/25/23 08:00 BP 137/84 10/25/23 08:00 Pulse Ox 95 10/25/23 08:25 FiO2 35 10/23/23 20:25 Intake & Output 10/24/23 10/25/23 10/25/23 18:59 06:59 18:59 Intake Total 0 240 118 Output Total 2880 1200 2400 Balance -2880 -960 -2282 Weight 71.8 kg Intake: Oral 0 240 118 Output: Urine 2880 1200 2400 Other: Voiding Method Toilet Toilet Toilet Bedside Commode Bedside Commode Bedside Commode # Voids 3 ABP, PAP, CO, CI - Last Documented Arterial Blood Pressure 81/41 - Exam No acute distress, oriented 3. Currently on 3 L of oxygen. HEENT examination is grossly unremarkable. Mucous membranes are moist. No oral lesions. Neck supple. Full range of motion. No adenopathy thyromegaly or neck vein distention. Cardiovascular examination reveals regular rhythm rate. S1-S2 normal. No S3 or S4. No discernible murmur noted. Heart rate 96 bpm. Lungs reveal diminished breath sounds on the right. Left breath sounds are clear. No distinct wheezes, rhonchi, or crackles. Abdomen soft bowel sounds are heard. No masses or tenderness. Extremities are intact. No cyanosis clubbing or edema. Skin is without rash or lesion. Neurologic examination is brief but nonfocal. - Labs CBC & Chem 7: 10/23/23 08:56 10/25/23 06:29 Labs: Abnormal Lab Results - Last 24 Hours (Table) 10/25/23 Range/Units 06:29 Carbon Dioxide 34 H (22-30) mmol/L Creatinine 0.47 L (0.52-1.04) mg/dL Calcium 8.2 L (8.4-10.2) mg/dL Microbiology - Last 24 Hours (Table) 10/22/23 16:34 Gram Stain - Final Sputum Sputum Culture - Final 10/22/23 08:16 Blood Culture - Preliminary Blood Assessment and Plan Assessment: Status post recent right middle lobectomy, POD # 12. Non-small cell lung cancer, with previous right upper lobectomy, 08/19/2023. Persistent right apical pneumothorax, and air leak. Lung abscess. Normocytic normochromic anemia. Moderately severe COPD with an FEV1 of 53% of predicted. Former tobacco dependence. Plan: Plan dated 10/25/2023. The patient is seen today in room 380. The patient has been here now for 26 days. She is postoperative day #12, status post right middle lobectomy. The patient had a previous right upper lobectomy, 08/19/2023, for non-small cell lung cancer. The patient is doing relatively well. She continues on oxygen at 3 L. No IV fluids. The patient is hoping to be discharged home, or to rehabilitation. Labs, x-rays, and medications are reviewed. We will continue to follow the patient, and make recommendations along the way. Time with Patient: Less than 30
[2023-10-25 14:01] VITALS: RESP 18
[2023-10-25 15:40] VITALS: BP 128/69; PULSE 108; TEMP 98.4
--- NOTE | 2023-10-26 13:40 | CDI ---
Documentation Clarification Form Date: 10/26/2023 01:28:03 PM From: Amarilis Sullivan Phone: Admit Date: 09/29/2023 06:56:00 PM Patient Name: Aurora Sousa Visit Number: [id number] Discharge Date: 10/25/2023 04:00:00 PM ATTENTION: The Clinical Documentation Specialists (CDI) and [facility] Coding Staff appreciate your assistance in clarifying documentation. Please respond to the clarification below the line at the bottom and electronically sign. The CDI & [facility] Coding staff will review the response and follow-up if needed. Please note: Queries are made part of the Legal Health Record. If you have any questions, please contact the author of this message via ITS. Dr. Kristin De Paz Hypotension is documented in the Progress Note 10/13. Additional clarification regarding this diagnosis is requested. History/Risk Factors: 58yo F, brevibacterium sepsis, abscess of lung with PNA & necrosis, RUL Cx s/p lobectomy, COPD, HTN, Intraoperative hemorrhage subclavian artery, Post procedural pneumothorax from 08/30 lobectomy, recent former smoker Clinical Indicators: VS: 10/13/2318:38 T 96.9 F P 107 R 20 BP 100/45 Pulse Ox 97 Treatment: Low-dose Jesu-Synephrine for bloodpressurecontrol. The patient is also on normal saline at the rate of 100 mL an hour. 7u PRBC, 1u FFP, 1u Platelets Can the hypotension be further specified? [ ] Septic hypotension [ ] Drug Induced Hypotension [ ] Iatrogenic Hypotension [ x ] Postoperative Hypotension [ ] Other Condition, please specify [ ] Unable to determine (Template Last Revised: January 2021) MTDD
--- NOTE | 2023-10-26 13:59 | CDI ---
Documentation Clarification Form Date: 10/26/2023 01:28:03 PM From: Amarilis Sullivan Phone: Admit Date: 09/29/2023 06:56:00 PM Patient Name: Aurora Sousa Visit Number: [id number] Discharge Date: 10/25/2023 04:00:00 PM ATTENTION: The Clinical Documentation Specialists (CDI) and [facility] Coding Staff appreciate your assistance in clarifying documentation. Please respond to the clarification below the line at the bottom and electronically sign. The CDI & [facility] Coding staff will review the response and follow-up if needed. Please note: Queries are made part of the Legal Health Record. If you have any questions, please contact the author of this message via ITS. Dr. Osbaldo Espino Subclavian artery bleeding is documented per Procedure Note 10/13. Additional clarification regarding subclavian artery bleeding is requested. Admitting Diagnosis: Non-small cell lung carcinomaof RUL. Necrosisandabscessof RML Post-Operative Diagnosis: Non-small cell lung carcinomaof RUL. Necrosisandabscessof RML Procedure performed: RedoThoracotomy; Extensivelysis of adhesions; Right middlelobectomy; Cryo-ablationof intercostal nerves 3-7 History/Risk Factors: 58yo F, Abscess of lung with PNA & necrosis, RUL Cx s/p lobectomy, COPD, HTN, Intraoperative hemorrhage subclavian artery, post procedural pneumothorax from 08/30 lobectomy, recent former smoker Clinical Indicators: performed a combination of blunt and sharplysis of adhesionsfor approximately 2 hours. Superiorly the lung was adherent to the subclavian artery and somebleedingwas encountered here. Treatment: The subclavianartery was repairedusing 3-0 prolene suture. At this point, intra-pericardial control of the superior pulmonary vein was obtained. This wastransectedusing a TA-30 stapler x 2.The phrenic nerve pedicle on the pericardium was isolated and preserved. Please clarify if subclavian artery bleeding is a complication of the surgical procedure? [ x ] Yes, subclavian artery bleeding is a complication [ ] No, subclavian artery bleeding is an anticipated outcome [ ] Other, please specify [ ] Unable to determine (Template Last Revised: January 2021) MTDD
--- NOTE | 2023-10-30 05:04 | P.DS ---
Providers Date of admission: 09/29/23 18:56 Expected date of discharge: 10/25/23 Attending physician: Kristin De Paz Consults: 09/29/23 18:54 Consult Physician Routine Consulting Provider: Mateo Davey Consult Reason/Comments: Lung abscess Do you want consulting provider notified?: Already Contacted Consult Physician Routine Consulting Provider: Chris Brunson Consult Reason/Comments: Lung abscess Do you want consulting provider notified?: Yes 09/29/23 18:57 Consult Physician Routine Consulting Provider: Osbaldo Espino Consult Reason/Comments: Lung abscess Do you want consulting provider notified?: Yes 10/21/23 07:32 Consult Physician Routine Consulting Provider: Chris Brunson Consult Reason/Comments: reconsult regarding abx Do you want consulting provider notified?: Yes Primary care physician: Jair Griffin Hospital Course: Final diagnosis Pneumonia with possible lung abscess, status post bronchoscopy, status post right middle lobe lobectomy on 10/13/2023 Rule out Cavitary lung lesion/pulmonary abscess as well as possible second ovary abscess or cavity necrosis Non-small cell lung cancer status post right upper lobectomy, done on 08/19/2023. 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 Patient will follow-up with Dr. Griffin in the outpatient setting upon discharge. Patient is to continue with current medications as mentioned below and outpatient follow-up with pulmonary and cardiothoracic surgery as scheduled. Total time taken is greater than 35 minutes. Hospital course This is a 58-year-old female who was recently admitted with increased shortness of breath with concerns of pneumonia with possible lung abscess and underwent right middle lobe lobectomy on 10/13/2023. Follow-up cultures have been negative with infectious disease following along with pulmonary and CT surgery. Patient did have prolonged hospitalization with continued chest tube maintained on oxygen.the patient was in the ICU for some time for hypotension postoperative ly requiring pressor support and was transferred out of the ICU. Patient will require oxygen on discharge secondary to lung cancer and is being arranged. Patient subsequently did pull her right chest wall catheter out and has had serial x-rays showing no significant pneumothorax and has been monitored closely with no worsening shortness of breath. CT surgery has cleared the patient for discharge. Patient would like to go home Feeling improved. Please refer to other consultation notes for further HPI. Currently no reports of chest pain,worsening shortness of breath, or palpitations. Patient is afebrile. No reports of nausea or vomiting and patient is tolerating diet. Patient will be discharged home today with guarded prognosis. Physical exam: Gen: This is a 58-year-old female who is awake, alert and oriented 3, well- developed, well-nourished HEENT: Head is atraumatic, normocephalic. Pupils equal, round. Sclerae is anicteric. NECK: Supple. No JVD. No lymphadenopathy. No thyromegaly. LUNGS: diminished breath sounds bilaterally, worse on the right otherwiseClear to auscultation. No wheezes or rhonchi. No intercostal retractions. HEART: Regular rate and rhythm. No murmur. ABDOMEN: Soft. Bowel sounds are present. No masses. No tenderness. EXTREMITIES: No pedal edema. No calf tenderness. NEUROLOGICAL: Patient is awake, alert and oriented x3. Cranial nerves 2 through 12 are grossly intact. Please refer to medication reconciliation sheet for a list of medications. The impression and plan of care has been dictated by Pamela Bryant, Nurse Practitioner as directed. Dr. Lavern MD I have performed a history and examination and MDM of this patient, discussed the same with the dictator, and agree with the dictator's assessment and plan as written ,documented as a scribe. Based on total visit time, I have performed more than 50% of the visit. Patient Condition at Discharge: Fair Plan - Discharge Summary Discharge Rx Participant: No New Discharge Prescriptions: New Lidocaine 4% Patch 1 patch TOPICAL DAILY #30 patch Metoprolol Tartrate [Lopressor] 12.5 mg PO BID 30 Days #60 tab guaiFENesin [Mucinex] 1,200 mg PO Q12HR 10 Days #20 tab Pantoprazole [Protonix] 40 mg PO AC-BRKFST #30 tab Sertraline [Zoloft] 50 mg PO DAILY #30 tab Ketorolac [Toradol] 10 mg PO Q6HR PRN #10 tab PRN Reason: Pain Ipratropium-Albuterol Nebulize [Duoneb 0.5 mg-3 mg/3 ml Soln] 3 ml INHALATION RT-QID #100 each Ipratropium-Albuterol Nebulize [Duoneb 0.5 mg-3 mg/3 ml Soln] 3 ml INHALATION RT-Q4H PRN each PRN Reason: Shortness Of Breath Or Wheezing Sennosides-Docusate Sodium [Senokot-S] 2 each PO HS tab Acetaminophen Tab [Tylenol] 1,000 mg PO Q6HR PRN tab PRN Reason: Fever And/ Or Pain Discontinued Doxycycline Hyclate 100 mg PO BID Discharge Medication List Acetaminophen Tab [Tylenol] 1,000 mg PO Q6HR PRN tab 10/25/23 [Rx] Ipratropium-Albuterol Nebulize [Duoneb 0.5 mg-3 mg/3 ml Soln] 3 ml INHALATION RT-Q4H PRN each 10/25/23 [Rx] Ipratropium-Albuterol Nebulize [Duoneb 0.5 mg-3 mg/3 ml Soln] 3 ml INHALATION RT-QID #100 each 10/25/23 [Rx] Ketorolac [Toradol] 10 mg PO Q6HR PRN #10 tab 10/25/23 [Rx] Lidocaine 4% Patch 1 patch TOPICAL DAILY #30 patch 10/25/23 [Rx] Metoprolol Tartrate [Lopressor] 12.5 mg PO BID 30 Days #60 tab 10/25/23 [Rx] Pantoprazole [Protonix] 40 mg PO AC-BRKFST #30 tab 10/25/23 [Rx] Sennosides-Docusate Sodium [Senokot-S] 2 each PO HS tab 10/25/23 [Rx] Sertraline [Zoloft] 50 mg PO DAILY #30 tab 10/25/23 [Rx] guaiFENesin [Mucinex] 1,200 mg PO Q12HR 10 Days #20 tab 10/25/23 [Rx] Follow up Appointment(s)/Referral(s): Mateo Davey MD [STAFF PHYSICIAN] - 10 Days (November 17, 9:15) Jair Griffin [Primary Care Provider] - 1-2 days (October 27, 10:45) Osbaldo Espino MD [STAFF PHYSICIAN] - 2 Weeks (office will call you with appt time) [facility] Visiting Nurse, [NON-STAFF] - Patient Instructions/Handouts: Lung Lobectomy (DC) Activity/Diet/Wound Care/Special Instructions: continue doing your IS 10x per hour while awake activity limited until follow up heart healthy diet Discharge Disposition: HOME WITH HOME HEALTH SERVICES
--- NOTE | 2023-11-01 15:19 | P.PN ---
Subjective Progress Note Date: 10/23/23 Principal diagnosis: Reason for follow-up is pneumonia/lung abscess Patient is a 57-year-old female with a past medical history significant for COPD hypertension lipidemia osteomyelitis with a recent diagnosis of right upper lobe lung cancer pathology non-small cell with neuroendocrine differentiation the patient is status post robotic assisted right upper lobectomy on 08/19/2023, now presented to hospital with persistent cough shortness of breath did have a low-grade fever abnormal CT suspicious for possible pneumonia/lung abscess, the patient is status post bronchoscopy by pulmonary and patient also have a pigtail catheter placed in by IR, subsequently Patient is status post redo thoracotomy with lysis of adhesion and right middle lobectomy completed on 10/13/2023 Has been asked by pulmonary for evaluation as of 10/21/2023 On today's evaluation that is 10/23/2023, the patient denies having any fever or any chills, the patient is breathing slightly comfortably currently on a 3 to nasal cannula oxygen patient denies having any chest pain no worsening cough or sputum production no nausea vomiting abdominal pain or diarrhea. Patient did have a white count of 6.3, creatinine 0.42 Objective - Vital Signs Vital signs: Vital Signs Temp 98.2 F 10/23/23 11:30 Pulse 100 10/23/23 12:04 Resp 20 10/23/23 11:30 BP 139/78 10/23/23 11:30 Pulse Ox 96 10/23/23 11:30 FiO2 35 10/19/23 11:24 Intake & Output 10/22/23 10/23/23 10/23/23 18:59 06:59 18:59 Intake Total 10 10 414 Output Total 300 Balance -290 10 414 Intake: IV 10 10 Invasive Line 1 10 10 Oral 414 Output: Urine 300 Other: Voiding Method Bedside Commode Toilet Toilet # Voids 3 1 1 # Bowel Movements 1 1 ABP, PAP, CO, CI - Last Documented Arterial Blood Pressure 81/41 - Exam GENERAL DESCRIPTION: A middle-age female up in bed in no distress RESPIRATORY SYSTEM: Unlabored breathing , decreased breath sounds at the base HEART: S1 S2 regular rate and rhythm , ABDOMEN: Soft , no tenderness EXTREMITIES: No edema feet - Labs CBC & Chem 7: 10/23/23 08:56 10/25/23 06:29 Labs: Abnormal Lab Results - Last 24 Hours (Table) 10/23/23 10/23/23 Range/Units 08:56 08:56 RBC 3.03 L (3.80-5.40) m/uL Hgb 8.8 L (11.4-16.0) gm/dL Hct 28.5 L (34.0-46.0) % RDW 16.2 H (11.5-15.5) % Carbon Dioxide 35 H (22-30) mmol/L Creatinine 0.42 L (0.52-1.04) mg/dL Glucose 103 H (74-99) mg/dL Calcium 8.1 L (8.4-10.2) mg/dL Microbiology - Last 24 Hours (Table) 10/22/23 16:34 Gram Stain - Preliminary Sputum Assessment and Plan (1) Pneumonia Status: Acute Code(s): J18.9 - PNEUMONIA, UNSPECIFIED ORGANISM SNOMED Code(s): 474751945 (2) Allergy to multiple antibiotics Status: Acute Code(s): Z88.1 - ALLERGY STATUS TO OTHER ANTIBIOTIC AGENTS SNOMED Code(s): 093501911 (3) Lung abscess Status: Acute Code(s): J85.2 - ABSCESS OF LUNG WITHOUT PNEUMONIA SNOMED Code(s): 27139151 Plan: 1patient presented to hospital with sepsis in this patient who did have a fever tachycardia hypoxemia elevated white count source is unlikely pneumonia with question of possible abscess/empyema in this patient with recent surgery ,patient is status post bronchoscopy lavage and also have placement of a pigtail catheter by IR , pleural fluid cultures grew Brevibacterium species,patient subsequently status post right middle lobe lobectomy on 10/13/2023 and post op noticed to have slight worsening of the white count and hypotension , concerning for possible sepsis related to it, patient did have a repeat culture which has been negative so far,and the patient completed almost 3 course of IV antibiotic therapy antibiotic was subsequently discontinued by CT surgery on 10/19/2023 2patient with the penicillin and cephalosporin allergy that would limit the number of antibiotics safe to use and the patient completed almost 3 course of IV antibiotic therapy 3the patient continues to be afebrile patient had normal white count and normal procalcitonin patient is currently doing well off antibiotic therapy will be monitored closely while waiting for repeat culture to finalize Dictation was produced using dragon dictation software. please excuse any grammatical, word or spelling errors. Time with Patient: Less than 30
--- NOTE | 2023-11-01 15:20 | P.PN ---
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 the patient is status post robotic assisted right upper lobectomy on 08/19/2023, now presented to hospital with persistent cough shortness of breath did have a low-grade fever abnormal CT suspicious for possible pneumonia/lung abscess, the patient is status post bronchoscopy by pulmonary and patient also have a pigtail catheter placed in by IR, subsequently Patient is status post redo thoracotomy with lysis of adhesion and right middle lobectomy completed on 10/13/2023 Has been asked by pulmonary for evaluation as of 10/21/2023 On today's evaluation that is 10/24/2023, the patient remains to be afebrile patient is breathing comfortably currently requiring 3 L nasal cannula oxygen patient denies any worsening cough or sputum production no chest pain patient denies any abdominal pain no nausea no vomiting and no diarrhea has been reported Patient did have a white count of 6.3 as of yesterday and creatinine 0.46 Objective - Vital Signs Vital signs: Vital Signs Temp 98.1 F 10/24/23 12:00 Pulse 106 H 10/24/23 09:14 Resp 16 10/24/23 12:00 BP 134/74 10/24/23 12:00 Pulse Ox 97 10/24/23 12:00 FiO2 35 10/23/23 20:25 Intake & Output 10/23/23 10/24/23 10/24/23 18:59 06:59 18:59 Intake Total 532 550 Output Total 1750 800 Balance 532 -1200 -800 Weight 75.3 kg Intake: IV 10 Invasive Line 1 10 Oral 532 540 Output: Urine 1750 800 Other: Voiding Method Toilet Toilet Toilet Bedside Commode Bedside Commode # Voids 3 1 # Bowel Movements 1 ABP, PAP, CO, CI - Last Documented Arterial Blood Pressure 81/41 - Exam GENERAL DESCRIPTION: A middle-age female up in bed in no distress RESPIRATORY SYSTEM: Unlabored breathing , decreased breath sounds at the base HEART: S1 S2 regular rate and rhythm , ABDOMEN: Soft , no tenderness EXTREMITIES: No edema feet - Labs CBC & Chem 7: 10/23/23 08:56 10/25/23 06:29 Labs: Abnormal Lab Results - Last 24 Hours (Table) 10/24/23 Range/Units 06:47 Chloride 97 L (98-107) mmol/L Carbon Dioxide 36 H (22-30) mmol/L Creatinine 0.46 L (0.52-1.04) mg/dL Calcium 8.1 L (8.4-10.2) mg/dL Microbiology - Last 24 Hours (Table) 10/22/23 08:16 Blood Culture - Preliminary Blood 10/22/23 16:34 Gram Stain - Preliminary Sputum Assessment and Plan (1) Pneumonia Status: Acute Code(s): J18.9 - PNEUMONIA, UNSPECIFIED ORGANISM SNOMED Code(s): 074991777 (2) Allergy to multiple antibiotics Status: Acute Code(s): Z88.1 - ALLERGY STATUS TO OTHER ANTIBIOTIC AGENTS SNOMED Code(s): 983948755 (3) Lung abscess Status: Acute Code(s): J85.2 - ABSCESS OF LUNG WITHOUT PNEUMONIA SNOMED Code(s): 07662229 Plan: 1patient presented to hospital with sepsis in this patient who did have a fever tachycardia hypoxemia elevated white count source is unlikely pneumonia with question of possible abscess/empyema in this patient with recent surgery ,patient is status post bronchoscopy lavage and also have placement of a pigtail catheter by IR , pleural fluid cultures grew Brevibacterium species,patient subsequently status post right middle lobe lobectomy on 10/13/2023 and post op noticed to have slight worsening of the white count and hypotension , concerning for possible sepsis related to it, patient did have a repeat culture which has been negative so far,and the patient completed almost 3 course of IV antibiotic therapy antibiotic was subsequently discontinued by CT surgery on 10/19/2023 2patient with the penicillin and cephalosporin allergy that would limit the number of antibiotics safe to use and the patient completed almost 3 course of IV antibiotic therapy 3the patient is afebrile and had normal white count normal inflammatory markers and repeat culture has been negative so far patient seem to be doing well of any by therapy and will monitor closely off antibiotic Dictation was produced using [employer] dictation software. please excuse any grammatical, word or spelling errors. Time with Patient: Less than 30
--- NOTE | 2023-11-01 15:21 | P.PN ---
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 the patient is status post robotic assisted right upper lobectomy on 08/19/2023, now presented to hospital with persistent cough shortness of breath did have a low-grade fever abnormal CT suspicious for possible pneumonia/lung abscess, the patient is status post bronchoscopy by pulmonary and patient also have a pigtail catheter placed in by IR, subsequently Patient is status post redo thoracotomy with lysis of adhesion and right middle lobectomy completed on 10/13/2023 Has been asked by pulmonary for evaluation as of 10/21/2023 On today's evaluation that is 10/25/2023 the patient continues to be afebrile patient is feeling better and is breathing comfortably on 3 L nasal cannula oxygen patient denies having any chest pain denies any worsening cough or sputum production patient denies any nausea no vomiting no abdominal pain or diarrhea feeling better wants to go home Patient did have a white count of 6.3 as of 10/23/2023 and a creatinine 0.47, repeat blood and sputum culture has been negative, patient did have a procalcitonin 0.09 Objective - Vital Signs Vital signs: Vital Signs Temp 97.1 F L 10/25/23 08:00 Pulse 100 10/25/23 11:56 Resp 17 10/25/23 08:00 BP 137/84 10/25/23 08:00 Pulse Ox 95 10/25/23 08:25 FiO2 35 10/23/23 20:25 Intake & Output 10/24/23 10/25/23 10/25/23 18:59 06:59 18:59 Intake Total 0 240 118 Output Total 2880 1200 2400 Balance -5576 -678 -2584 Weight 71.8 kg Intake: Oral 0 240 118 Output: Urine 2880 1200 2400 Other: Voiding Method Toilet Toilet Toilet Bedside Commode Bedside Commode Bedside Commode # Voids 3 ABP, PAP, CO, CI - Last Documented Arterial Blood Pressure 81/41 - Exam GENERAL DESCRIPTION: A middle-age female up in bed in no distress RESPIRATORY SYSTEM: Unlabored breathing , decreased breath sounds at the base HEART: S1 S2 regular rate and rhythm , ABDOMEN: Soft , no tenderness EXTREMITIES: No edema feet - Labs CBC & Chem 7: 10/23/23 08:56 10/25/23 06:29 Labs: Abnormal Lab Results - Last 24 Hours (Table) 10/25/23 Range/Units 06:29 Carbon Dioxide 34 H (22-30) mmol/L Creatinine 0.47 L (0.52-1.04) mg/dL Calcium 8.2 L (8.4-10.2) mg/dL Microbiology - Last 24 Hours (Table) 10/22/23 16:34 Gram Stain - Final Sputum Sputum Culture - Final 10/22/23 08:16 Blood Culture - Preliminary Blood Assessment and Plan (1) Pneumonia Status: Acute Code(s): J18.9 - PNEUMONIA, UNSPECIFIED ORGANISM SNOMED Code(s): 894105310 (2) Allergy to multiple antibiotics Status: Acute Code(s): Z88.1 - ALLERGY STATUS TO OTHER ANTIBIOTIC AGENTS SNOMED Code(s): 518836026 (3) Lung abscess Status: Acute Code(s): J85.2 - ABSCESS OF LUNG WITHOUT PNEUMONIA SNOMED Code(s): 50748533 Plan: 1patient presented to hospital with sepsis in this patient who did have a fever tachycardia hypoxemia elevated white count source is unlikely pneumonia with question of possible abscess/empyema in this patient with recent surgery ,patient is status post bronchoscopy lavage and also have placement of a pigtail catheter by IR , pleural fluid cultures grew Brevibacterium species,patient subsequently status post right middle lobe lobectomy on 10/13/2023 and post op noticed to have slight worsening of the white count and hypotension , concerning for possible sepsis related to it, patient did have a repeat culture which has been negative so far,and the patient completed almost 3 course of IV antibiotic therapy antibiotic was subsequently discontinued by CT surgery on 10/19/2023 2patient with the penicillin and cephalosporin allergy that would limit the number of antibiotics safe to use and the patient completed almost 3 course of IV antibiotic therapy 3patient stayed afebrile white count normal lactate and normal inflammatory markers repeat blood and sputum cultures have been negative patient has been off antibiotic for about a week and seem to have done well hence recommending no antibiotics on discharge, patient advised if any recurrence of fever or worsening respiratory symptoms to let me know right away Dictation was produced using [employer] software. please excuse any grammatical, word or spelling errors. Time with Patient: Less than 30
--- NOTE | 2023-11-03 17:29 | CDI ---
Documentation Clarification Form Date: From: Lyubov Meeks Phone: [phone] Admit Date: 09/29/2023 06:56:00 PM Patient Name: Aurora Sousa Visit Number: [id number] Discharge Date: 10/25/2023 04:00:00 PM ATTENTION: The Clinical Documentation Specialists (CDI) and [facility] Coding Staff appreciate your assistance in clarifying documentation. Please respond to the clarification below the line at the bottom and electronically sign. The CDI & [facility] Coding staff will review the response and follow-up if needed. Please note: Queries are made part of the Legal Health Record. If you have any questions, please contact the author of this message via ITS. Dr. Kristin De Paz "Postoperative Hypotension" is documented in the Physician Clarification on 10/26 and patient had a redo Thoracotomy on 10/13. Additional clarification is requested regarding the relationship, if any, that exists between the diagnosis and the procedure. Post-Operative Diagnosis: "Non small cell lung carcinoma of the right upper lobe, Necrosis and abscess of right middle lobe" - Per Op Note on 10/13 Procedure(s) Performed: (Per Op Note on 10/13) 1. Redo Thoracotomy 2. Extensive lysis of adhesions 3. Right middle lobectomy 4. Cryo-ablation of intercostal nerves 3-7 History/Risk Factors: "57-year-old lady with past medical history significant for right upper lobe non-small cell lung carcinoma status post robotic-assisted VATS involving a right upper lobectomy on 08/19/23 who presented to the ER because of abnormal computed tomography scan findings and persistent shortness of breath." - Per Medical H&P on 09/30 Clinical Indicators: "Estimated Blood Loss (ml): 3,000" - Per OP Note on 10/13 "there was significant amount of blood loss" "blood pressure is soft around 91/57" - Per Progress Note on 10/13 BP: 10/13 19:30 - 83/46, 20:00 - 94/50, 21:00 - 102/49 10/14 07:45 - 105/52, 10:00 - 103/56, 17:45 - 96/53 Treatment: "6 units of packed RBC and treated for fresh frozen plasma and 1 unit of platelets" "currently on Jesu-Synephrine at 0.5 mcg/kg/m" - Progress Note on 10/13 What relationship, if any, exists between the diagnosis of hypotension and the procedure: [ ] Hypotension is a complication of surgical procedure [x ] Hypotension is an expected outcome of the surgical procedure [ ] Hypotension is related to patients co-morbid condition(s) of blood loss & not a complication of the procedure [ ] Other please specify ____ [ ] Unable to determine MTDD
== END 2023-10-25 16:00 | disposition home health service (06) | DRG 856 ==
LOC: EC 16:42 → 3SCARD 18:56 → 6NMEDSUR 10-02 21:35 → 2SICU 10-13 17:03 → 3SCARD 10-18 18:58
PROVIDERS: ADMIT Hospitalist; ATTEND Hospitalist
PROC: 0BBD8ZX Excision of Right Middle Lung Lobe, Via Natural or Artificial Opening Endoscopic, Diagnostic (ICD-10-PCS; 2023-10-01)
PROC: 0B9D8ZX Drainage of Right Middle Lung Lobe, Via Natural or Artificial Opening Endoscopic, Diagnostic (ICD-10-PCS; principal; 2023-10-01 07:30)
PROC: 02HV33Z Insertion of Infusion Device into Superior Vena Cava, Percutaneous Approach (ICD-10-PCS; 2023-10-07)
PROC: 30233N1 Transfusion of Nonautologous Red Blood Cells into Peripheral Vein, Percutaneous Approach (ICD-10-PCS; 2023-10-11)
PROC: 01580ZZ Destruction of Thoracic Nerve, Open Approach (ICD-10-PCS; 2023-10-13)
PROC: 0BTD0ZZ Resection of Right Middle Lung Lobe, Open Approach (ICD-10-PCS; 2023-10-13)
PROC: 0DNW0ZZ Release Peritoneum, Open Approach (ICD-10-PCS; 2023-10-13)
PROC: 03Q30ZZ Repair Right Subclavian Artery, Open Approach (ICD-10-PCS; 2023-10-13)
PROC: 30233R1 Transfusion of Nonautologous Platelets into Peripheral Vein, Percutaneous Approach (ICD-10-PCS; 2023-10-13)
PROC: 30233K1 Transfusion of Nonautologous Frozen Plasma into Peripheral Vein, Percutaneous Approach (ICD-10-PCS; 2023-10-13)
PROC: 02HV33Z Insertion of Infusion Device into Superior Vena Cava, Percutaneous Approach (ICD-10-PCS; 2023-10-13)
PROC: 3E0R3NZ Introduction of Analgesics, Hypnotics, Sedatives into Spinal Canal, Percutaneous Approach (ICD-10-PCS; 2023-10-13)
PROC: 3E043XZ Introduction of Vasopressor into Central Vein, Percutaneous Approach (ICD-10-PCS; 2023-10-13)
PROC: 6A550Z2 Pheresis of Platelets, Single (ICD-10-PCS; 2023-10-13)
PROC: 6A550Z3 Pheresis of Plasma, Single (ICD-10-PCS; 2023-10-13)
DX: T81.40XA Infection following a procedure, unspecified, initial encounter (principal); A41.89 Other specified sepsis; J85.1 Abscess of lung with pneumonia; J85.0 Gangrene and necrosis of lung; J15.8 Pneumonia due to other specified bacteria; G92.8 Other toxic encephalopathy; I97.42 Intraoperative hemorrhage and hematoma of a circulatory system organ or structure complicating other procedure; B37.89 Other sites of candidiasis; J95.811 Postprocedural pneumothorax; J44.0 Chronic obstructive pulmonary disease with (acute) lower respiratory infection; C34.11 Malignant neoplasm of upper lobe, right bronchus or lung; J93.82 Other air leak; I95.9 Hypotension, unspecified; Z68.33 Body mass index [BMI] 33.0-33.9, adult; D63.0 Anemia in neoplastic disease; E66.9 Obesity, unspecified; T40.605A Adverse effect of unspecified narcotics, initial encounter; E78.5 Hyperlipidemia, unspecified; B96.89 Other specified bacterial agents as the cause of diseases classified elsewhere; M19.90 Unspecified osteoarthritis, unspecified site; E87.6 Hypokalemia; K21.9 Gastro-esophageal reflux disease without esophagitis; K66.0 Peritoneal adhesions (postprocedural) (postinfection); M79.89 Other specified soft tissue disorders; G89.18 Other acute postprocedural pain; Y83.8 Other surgical procedures as the cause of abnormal reaction of the patient, or of later complication, without mention of misadventure at the time of the procedure; Y92.234 Operating room of hospital as the place of occurrence of the external cause; Z90.2 Acquired absence of lung [part of]; Z87.891 Personal history of nicotine dependence; Z90.49 Acquired absence of other specified parts of digestive tract; Z88.0 Allergy status to penicillin; Z88.8 Allergy status to other drugs, medicaments and biological substances; Z88.1 Allergy status to other antibiotic agents; Z91.041 Radiographic dye allergy status; Z91.013 Allergy to seafood; Z79.899 Other long term (current) drug therapy; Z79.51 Long term (current) use of inhaled steroids; Z87.19 Personal history of other diseases of the digestive system
CPT/HCPCS: 31624; 31625; 32551; 36415; 36430; 36573; 71045; 71046; 71250; 80048; 80053; 80202; 82533; 82805; 83605; 83735; 84100; 84132; 84145; 84155; 84484; 85025; 85027; 85049; 85610; 85730; 86140; 86850; 86900; 86901; 86920; 87040; 87070; 87102; 87116; 87205; 87206; 87305; 87496; 87498; 87502; 87529; 87634; 87798; 88108; 88305; 88309; 88312; 89050; 93005; 94640; 94660; 94760; 96365; 96367; 99285

== ENCOUNTER → 2024-04-17 | Outpatient (CLI) | payer BC ==
--- NOTE | 2024-04-18 08:24 | PE ---
EXAMINATION TYPE: PET CT fusion skull to thigh DATE OF EXAM: 04/17/2024 CLINICAL INDICATION:Female, 58 years old with history of C34.11 Lung Ca; TECHNIQUE: Following the intravenous administration of 9.86 mCi of F-18 FDG, whole body images are performed from the skull base to the midthigh. Images are reviewed on the computer in the coronal, a xial, and sagittal planes. Reconstructed rotating images are created on independent workstation and reviewed on the computer. A non-contrast CT is performed in conjunction with the PET scan. Glucose level 84 mg/dL CT DLP: 595 mGycm, Automated exposure control for dose reduction was used. COMPARISON: CT 10/12/2023, PET/CT 06/15/2023, FINDINGS: Mediastinal SUV mean is 2.05. Hepatic parenchyma SUV mean is 2.83. SKULL BASE AND NECK: No suspicious radiotracer activity. CHEST, MEDIASTINUM, AND HILAR REGION: No suspicious radiotracer activity. ABDOMEN AND PELVIS: No suspicious radiotracer activity. MUSCULOSKELETAL STRUCTURES: No suspicious radiotracer activity. OTHER CT: Postsurgical changes right upper lung. Atherosclerosis of the coronary arteries. Cholecyste ctomy change. Arthrosis course of the arterial vasculature. Affecting umbilical hernia. Post surgical changes to the bowel in the left lower quadrant. IMPRESSION: Post surgical changes without evidence for abnormal hypermetabolic activity. Surveillance with CT katrin ging recommended.
== END | disposition home or self-care (01) ==
LOC: RADPETMAIN 08:10
PROVIDERS: ATTEND Internal Medicine
DX: C34.11 Malignant neoplasm of upper lobe, right bronchus or lung (principal)
CPT/HCPCS: 78815; A9552

== ENCOUNTER → 2025-01-01 | Outpatient (CLI) | payer BC ==
--- NOTE | 2025-01-01 09:15 | CT ---
EXAMINATION TYPE: CT chest wo con DATE OF EXAM: 01/01/2025 COMPARISON: Prior PET/CT April 17, 2024 and older studies. HISTORY: HISTORY OF LUNG CA CT DLP: 425.9 mGycm. Automated Exposure Control for Dose Reduction was Utilized. TECHNIQUE: CT scan of the thorax is performed without IV contrast. FINDINGS: LUNGS: Elevated right hemidiaphragm is redemonstrated. Persistent posttreatment change to right upper lung with linear sutures extending from the hilum anteriorly and superiorly. There is focal mild to moderate linear scarring. There is persistent tiny pneumothorax anterior superior aspect. Stable righ t hilar masslike consolidation extending into the suprahilar region from the recent PET/CT. Left lung remains clear. MEDIASTINUM: Lack of IV contrast is noted to limit evaluation for mediastinal and especially hilar ad enopathy. There are no definitive new greater than 1 cm mediastinal lymph nodes. Persistent mediastin al shift to the right. No cardiomegaly or pericardial effusion is seen. Coronary artery calcificatio n redemonstrated. Other: Cholecystectomy clips are redemonstrated. Multilevel spurring in the spine again seen. IMPRESSION: Stable posttreatment changes to the right lung. No new mass or adenopathy is noted. No si gnificant change from most recent PET/CT. [facility], , 01/01/2025 9:12 AM
== END | disposition home or self-care (01) ==
LOC: RADCTMAIN 08:33
PROVIDERS: ATTEND Internal Medicine
DX: C34.91 Malignant neoplasm of unspecified part of right bronchus or lung (principal); Z98.890 Other specified postprocedural states
CPT/HCPCS: 71250